=== PATIENT | female | born 1940 | race Caucasian/White ===

== ENCOUNTER → 2017-01-04 | Outpatient (CLI) | payer MEDICARE, BC ==
--- NOTE | 2017-01-04 09:33 | USB ---
Reason for exam: follow-up at short interval from prior study. History: Patient is postmenopausal. Family history of premenopausal breast cancer in daughter at age 40. Benign right US cyst aspiration of the right breast, March 15, 2008. Took hormonal contraceptives for 10 years. Took estrogen for 34 years beginning at age 36. Physical Findings: Nurse did not find any significant physical abnormalities on exam. US Breast RT Right breast ultrasound including all four quadrants, the retroareolar region and axilla demonstrates a 4 x 3 x 2mm oval, lesion at 10 o'clock versus 3 x 3 x 3mm previously, now appears cystic and benign and a 2mm lesion too small to characterize at 10 o'clock. A 6 month follow up of the mammographic finding recommended. These results were verbally communicated with the patient and result sheet given to the patient on 01/04/17. ASSESSMENT: Probably benign, BI-RAD 3 RECOMMENDATION: Follow-up diagnostic mammogram of both breasts in 6 months. JYOTHI
== END | disposition home or self-care (01) ==
LOC: RADUSWWP 08:31
PROVIDERS: ATTEND Internal Medicine
DX: R92.8 Other abnormal and inconclusive findings on diagnostic imaging of breast (principal)

== ENCOUNTER → 2017-02-12 | Outpatient (CLI) | payer MEDICARE, BC ==
[2017-02-12 11:50] LABS: Calcium 10.8 mg/dL (8.4-10.2); Potassium 3.8 mmol/L (3.5-5.1); Total Protein 7.8 g/dL (6.3-8.2)
[2017-02-12 12:18] LABS: Total Bilirubin 1.3 mg/dL (0.2-1.3)
== END ==
LOC: LABWHC1 10:50
PROVIDERS: ATTEND Internal Medicine Interventional Cardiology
DX: E78.2 Mixed hyperlipidemia (principal)
CPT/HCPCS: 36415; 80053; 80061

== ENCOUNTER → 2017-03-18 | Outpatient (CLI) | payer MEDICARE, BC ==
[2017-03-18 15:56] LABS: Anisocytosis Slight; CH 29.4; CHCM 32.5; HCT 33.7 % (34.0-46.0); HDW 3.66; Hypochromasia Slight; MCH 29.6 pg (25.0-35.0); MCHC 32.5 g/dL (31.0-37.0); Mean Platelet Volume 6.4; Poikilocytosis Slight; RDW 17.3 % (11.5-15.5); WBC 8.3 k/uL (3.8-10.6)
[2017-03-18 16:15] LABS: C Reactive Protein 9.7 mg/L (<10.0); Calcium 10.3 mg/dL (8.4-10.2); Potassium 4.6 mmol/L (3.5-5.1); Total Bilirubin 1.6 mg/dL (0.2-1.3)
[2017-03-18 16:21] LABS: Total Protein 7.9 g/dL (6.3-8.2)
[2017-03-18 18:07] LABS: Erythrocyte Sedimentation Rate 49 mm/hr (0-20)
[2017-03-18 21:48] LABS: Hemoglobin A1C 6.4 % (4.2-6.1)
== END | disposition home or self-care (01) ==
LOC: LABWHC1 14:55
PROVIDERS: ATTEND Family Medicine
DX: E11.621 Type 2 diabetes mellitus with foot ulcer (principal); M79.604 Pain in right leg; M86.68 Other chronic osteomyelitis, other site
CPT/HCPCS: 36415; 80053; 83036; 84134; 85027; 85652; 86140

== ENCOUNTER → 2017-03-26 | Outpatient (CLI) | payer MEDICARE, BC ==
[2017-03-26 11:57] LABS: Potassium 4.8 mmol/L (3.5-5.1)
== END | disposition home or self-care (01) ==
LOC: LABWHC1 11:10
PROVIDERS: ATTEND Nurse Practitioner Adult Health
DX: N18.9 Chronic kidney disease, unspecified (principal)
CPT/HCPCS: 36415; 80051; 82565; 84520

== ENCOUNTER → 2017-04-16 | Outpatient (CLI) | payer MEDICARE, BC ==
--- NOTE | 2017-04-16 15:32 | US ---
LOWER EXTREMITY VENOUS INSUFFICIENCY bilateral ingrown toe nails and wounds SIDE PERFORMED: Bilateral 1) Color flow is present and patency is documented in the following vessels. No DVT or SVT is noted . ? EIV ? Common Femoral Vein ? Deep Femoral Vein ? Femoral Vein ? Popliteal Vein ? Proximal Calf Veins ? Greater Saph Vein ? Upper Small Saph Vein 2) There is venous reflux noted at the following venous levels: none 3) Incompetent perforators are noted at these levels: none IMPRESSION: NO EVIDENCE OF VENOUS INSUFFICIENCY AT THIS TIME.
--- NOTE | 2017-04-21 10:02 | P.ARTDOP ---
Arterial Doppler LOWER EXTREMITY ARTERIAL DOPPLER: DATE OF SERVICE: 04/16/17 Reason for study: Bilateral great toe ulcers. Doppler waveforms: Multiphasic bilaterally throughout. Pulse volume recording: Normal configuration. Pressure gradients: None. Ankle-brachial indices: Cannot be occluded. Toe pressures: 118 on the right, 125 on the left Impression: Essentially normal flow patterns. Ankle pressures suggest calcific wall disease without significant effect on distal perfusion..
== END | disposition home or self-care (01) ==
LOC: RADUSWWP 13:59
PROVIDERS: ATTEND Family Medicine
DX: M79.604 Pain in right leg (principal)
CPT/HCPCS: 93923; 93970

== ENCOUNTER → 2017-06-18 | Outpatient (CLI) | payer MEDICARE, BC ==
[2017-06-18 10:54] LABS: Calcium 9.5 mg/dL (8.4-10.2); Total Bilirubin 1.4 mg/dL (0.2-1.3); Total Protein 7.7 g/dL (6.3-8.2)
[2017-06-18 16:42] LABS: Urine Creatinine 114.3 mg/dL
== END | disposition home or self-care (01) ==
LOC: LABWHC1 10:18
PROVIDERS: ATTEND Internal Medicine Endocrinology, Diabetes & Metabolism
DX: E11.65 Type 2 diabetes mellitus with hyperglycemia (principal)
CPT/HCPCS: 36415; 80053; 80061; 82043; 82570; 84443

== ENCOUNTER → 2017-07-23 | Outpatient (CLI) | payer MEDICARE, BC ==
--- NOTE | 2017-07-26 07:07 | MM ---
Reason for exam: screening (asymptomatic). Last mammogram was performed 1 year and 1 month ago. History: Patient is postmenopausal. Family history of premenopausal breast cancer in daughter at age 40. Benign right US cyst aspiration of the right breast, March 15, 2008. Took hormonal contraceptives for 10 years. Took estrogen for 34 years beginning at age 36. Physical Findings: A clinical breast exam by your physician is recommended on an annual basis and results should be correlated with mammographic findings. MG 3D Screening Mammo W/Cad Bilateral CC and MLO view(s) were taken. Prior study comparison: January 04, 2017, right breast US breast RT. June 24, 2016, right breast MG work up mamm w CAD RT. June 22, 2016, bilateral MG screening mammo w CAD. The breast tissue is heterogeneously dense. This may lower the sensitivity of mammography. Stable Benign calcifications bilateral breasts. There is no discrete abnormality. No significant changes when compared with prior studies. ASSESSMENT: Benign, BI-RAD 2 RECOMMENDATION: Routine screening mammogram of both breasts in 1 year.
== END | disposition home or self-care (01) ==
LOC: RADMAMWWP 10:06
PROVIDERS: ATTEND Internal Medicine
DX: Z12.31 Encounter for screening mammogram for malignant neoplasm of breast (principal)
CPT/HCPCS: 77063; G0202

== ENCOUNTER → 2017-09-22 | Outpatient (CLI) | payer MEDICARE, BC ==
[2017-09-22 11:52] LABS: Calcium 9.6 mg/dL (8.4-10.2); Potassium 4.2 mmol/L (3.5-5.1); Total Bilirubin 1.4 mg/dL (0.2-1.3); Total Protein 7.6 g/dL (6.3-8.2)
[2017-09-22 14:32] LABS: Urine Creatinine 87.6 mg/dL
== END ==
LOC: LABWHC1 10:35
PROVIDERS: ATTEND Internal Medicine Endocrinology, Diabetes & Metabolism
DX: E11.65 Type 2 diabetes mellitus with hyperglycemia (principal)
CPT/HCPCS: 36415; 80053; 80061; 82043; 82570; 83036

== ENCOUNTER → 2017-10-13 | Outpatient (CLI) | payer MEDICARE, BC ==
[2017-10-13 11:53] LABS: Calcium 8.7 mg/dL (8.4-10.2); Potassium 4.2 mmol/L (3.5-5.1); Total Bilirubin 1.5 mg/dL (0.2-1.3); Total Protein 6.6 g/dL (6.3-8.2)
== END | disposition home or self-care (01) ==
LOC: LABWHC1 10:31
PROVIDERS: ATTEND Internal Medicine Interventional Cardiology
DX: E78.2 Mixed hyperlipidemia (principal)
CPT/HCPCS: 36415; 80053; 80061

== ENCOUNTER → 2018-01-26 | Outpatient (CLI) | payer MEDICARE, BC ==
[2018-01-26 12:56] LABS: ALT 21 U/L (9-52); AST 19 U/L (14-36); Cholesterol 103 mg/dL (<200); Creatine Kinase 60 U/L (30-135); HDL Cholesterol 27 mg/dL (40-60); LDL Cholesterol,Calculated 47 mg/dL (0-99); Triglycerides 145 mg/dL (<150)
== END | disposition home or self-care (01) ==
LOC: LABWHC1 12:09
PROVIDERS: ATTEND Internal Medicine Interventional Cardiology
DX: E78.2 Mixed hyperlipidemia (principal)
CPT/HCPCS: 36415; 80061; 82550; 84450; 84460

== ENCOUNTER → 2018-02-23 | Outpatient (CLI) | payer MEDICARE, BC ==
[2018-02-23 14:03] LABS: Albumin 3.9 g/dL (3.5-5.0); Calcium 9.3 mg/dL (8.4-10.2); Digoxin 1.5 ng/mL; Potassium 4.5 mmol/L (3.5-5.1); Total Bilirubin 1.9 mg/dL (0.2-1.3)
== END | disposition home or self-care (01) ==
LOC: LABWHC1 13:08
PROVIDERS: ATTEND Internal Medicine Interventional Cardiology
DX: I50.9 Heart failure, unspecified (principal)
CPT/HCPCS: 36415; 80053; 80162; 83880

== ENCOUNTER → 2018-04-05 | Outpatient (CLI) | payer MEDICARE, BC ==
--- NOTE | 2018-04-05 13:00 | XR ---
EXAMINATION TYPE: XR foot complete LT DATE OF EXAM: 04/05/2018 COMPARISON: NONE HISTORY: Osteomyelitis left second digit TECHNIQUE: 3 views left foot FINDINGS: There is erosion of the middle phalanx left second digit. Findings can be compatible with o steomyelitis. Soft tissue swelling is over the site. There is hallux valgus deformity. There is narrowing of the proximal interphalangeal joint space of t he first digit. First metatarsophalangeal joint space degenerative changes present. Joint spaces otherwise visualized appear intact. Soft tissue swelling is present over the foot. Small Achilles tendon calcaneal heel spur is present. IMPRESSION: 1. Erosion of the second digit middle phalanx with some residual base remaining. Soft tissue swellin g is present. Findings are compatible with patient's reported osteomyelitis. 2. Hallux valgus deformity.
== END | disposition home or self-care (01) ==
LOC: RADXRMAIN 12:20
PROVIDERS: ATTEND Internal Medicine Infectious Disease
DX: M21.072 Valgus deformity, not elsewhere classified, left ankle (principal); M85.872 Other specified disorders of bone density and structure, left ankle and foot; M79.89 Other specified soft tissue disorders

== ENCOUNTER 2018-04-08 14:13 | Emergency (ER) | payer MEDICARE, BC ==
--- NOTE | 2018-04-08 14:47 | ED ---
General Adult HPI - General Chief complaint: Recheck/Abnormal Lab/Rx Stated complaint: sent by PCP / Transfusion Time Seen by Provider: 04/08/18 14:33 Source: patient, RN notes reviewed, old records reviewed Mode of arrival: ambulatory Limitations: no limitations - History of Present Illness Initial comments: 77-year-old female presenting from primary care's office with low hemoglobin. Patient was told by her primary care physician that she had a hemoglobin of 10.1. She had been complaining of some fatigue. She has history of mild anemia. She also has history of mechanical valve replacement and is currently on Coumadin. She has a right upper extremity PICC line is being treated for a left second toe osteomyelitis. She states these issues are chronic and unchanged. Patient's primary care physician also noted that she had some mild hypernatremia, hypokalemia, and hypocalcemia. Patient does complain of some mild fatigue, no dyspnea, no cough, no fever or chills. No abdominal pain. No nausea vomiting or diarrhea. She denies bright red rectal bleeding, she does state that she has dark stools use currently on iron supplementation. - Related Data Home Medications Medication Instructions Recorded Confirmed Atenolol [Tenormin] 50 mg PO BID 10/12/16 04/23/17 Digoxin [Lanoxin] 125 mcg PO DAILY 10/12/16 04/23/17 Insulin Aspart [NovoLOG Flexpen] 6 units SQ AC-BRKFST 10/12/16 04/23/17 Insulin Aspart [NovoLOG Flexpen] 7 units SQ AC-LUNCH 10/12/16 04/23/17 Insulin Aspart [NovoLOG Flexpen] 8 units SQ AC-SUPPER 10/12/16 04/23/17 Insulin Glargine,Hum.rec.anlog 20 unit SQ HS 10/12/16 04/23/17 [Lantus Solostar] Losartan [Cozaar] 100 mg PO DAILY 10/12/16 04/23/17 Meloxicam 15 mg PO DAILY 10/12/16 04/23/17 Warfarin [Coumadin] 3.75 mg PO DAILY 10/12/16 04/23/17 cloNIDine HCL [Catapres] 0.2 mg PO DAILY 10/12/16 04/23/17 Furosemide [Lasix] 40 mg PO BID@0900,1600 03/16/17 04/23/17 Metolazone [Zaroxolyn] 2.5 mg PO TU 03/16/17 04/23/17 Calcium Carbonate/Vitamin D3 1 each PO BID 03/18/17 04/23/17 [Calcium 600-Vit D3 800 Tab] Simvastatin [Zocor] 40 mg PO HS 03/18/17 04/23/17 Amoxicillin/Potassium Clav 1 tab PO Q12HR 03/25/17 04/23/17 [Augmentin 875-125 Tablet] Allergies Allergy/AdvReac Type Severity Reaction Status Date / Time Iodinated Contrast- Oral and Allergy Rash/Hives Verified 04/08/18 16:07 IV Dye [Iodinated Contrast Media - IV Dye] Review of Systems ROS Statement: Those systems with pertinent positive or pertinent negative responses have been documented in the HPI. ROS Other: All systems not noted in ROS Statement are negative. Past Medical History Past Medical History: Atrial Fibrillation, Heart Failure, Diabetes Mellitus, Hyperlipidemia, Hypertension, Renal Disease Additional Past Medical History / Comment(s): patient states she had rheumatic fever when she was a teenager and had her first pacemaker inserted when she was in her 30's, decrease kidney function, wounds dee dee great toes left foot History of Any Multi-Drug Resistant Organisms: None Reported Past Surgical History: Appendectomy, Cardiac Valve Replacement, Hysterectomy, Pacemaker Past Anesthesia/Blood Transfusion Reactions: No Reported Reaction Type of Cardiac Device: Permanent Pacemaker Device Placement Date:: 2012 Past Psychological History: No Psychological Hx Reported Smoking Status: Never smoker Past Alcohol Use History: None Reported Past Drug Use History: None Reported - Past Family History Brother(s) Additional Family Medical History / Comment(s): patient states brother had " heart problems" Father History Unknown: Yes Mother History Unknown: Yes General Exam Limitations: no limitations General appearance: alert, in no apparent distress Head exam: Present: atraumatic, normocephalic Eye exam: Present: normal appearance, PERRL, EOMI Neck exam: Present: normal inspection. Absent: tenderness, meningismus Respiratory exam: Present: normal lung sounds bilaterally. Absent: respiratory distress, wheezes Cardiovascular Exam: Present: regular rate, normal rhythm, systolic murmur GI/Abdominal exam: Present: soft. Absent: distended, tenderness, guarding Rectal exam: Present: normal inspection. Absent: black stool, bloody stool Extremities exam: Present: full ROM, normal capillary refill, other (Mild erythema over the second toe on the left, no induration or fluctuance). Absent : pedal edema Neurological exam: Present: alert, oriented X3, CN II-XII intact. Absent: motor sensory deficit Psychiatric exam: Present: normal affect, normal mood Skin exam: Present: warm, dry, intact. Absent: cyanosis, diaphoretic Course Vital Signs 04/08/18 14:20 Temperature 98.0 F Pulse Rate 89 Respiratory 18 Rate Blood Pressure 119/58 O2 Sat by Pulse 95 Oximetry Medical Decision Making - Medical Decision Making 77-year-old female sent in for low hemoglobin and concern for GI bleed as well as several electrolytes abnormalities. Laboratory studies are repeated, normal white blood cell count, hemoglobin is 8.4 which is stable for this patient, previous lab drawn was 7.1 this may have been lab abnormality. Sodium is normal 140, potassium normal 4.3. And calcium is normal. Hemoccult is negative. These laboratory studies were discussed with the patient 's primary care physician Dr. Garza. Patient is stable for outpatient follow- up. - Lab Data Result diagrams: 04/08/18 14:56 04/08/18 14:56 Lab Results 04/08/18 04/08/18 04/08/18 Range/Units 14:56 14:56 14:56 WBC 6.0 (3.8-10.6) k/uL RBC 3.72 L (3.80-5.40) m/uL Hgb 8.4 L (11.4-16.0) gm/dL Hct 27.7 L (34.0-46.0) % MCV 74.4 L (80.0-100.0) fL MCH 22.6 L (25.0-35.0) pg MCHC 30.3 L (31.0-37.0) g/dL RDW 22.8 H (11.5-15.5) % Plt Count 292 (150-450) k/uL Neutrophils % 78 % Lymphocytes % 11 % Monocytes % 5 % Eosinophils % 4 % Basophils % 0 % Neutrophils # 4.6 (1.3-7.7) k/uL Lymphocytes # 0.7 L (1.0-4.8) k/uL Monocytes # 0.3 (0-1.0) k/uL Eosinophils # 0.3 (0-0.7) k/uL Basophils # 0.0 (0-0.2) k/uL Hypochromasia Marked Poikilocytosis Slight Anisocytosis Moderate Microcytosis Marked PT (9.0-12.0) sec INR (<1.2) APTT (22.0-30.0) sec Sodium (137-145) mmol/L Potassium (3.5-5.1) mmol/L Chloride (98-107) mmol/L Carbon Dioxide (22-30) mmol/L Anion Gap mmol/L BUN (7-17) mg/dL Creatinine (0.52-1.04) mg/dL Est GFR (CKD-EPI)AfAm (>60 ml/min/1.73 sqM) Est GFR (CKD-EPI)NonAf (>60 ml/min/1.73 sqM) Glucose (74-99) mg/dL POC Glucose (mg/dL) (75-99) mg/dL POC Glu Psychological Anthropologist ID Plasma Lactic Acid [place] (0.7-2.0) mmol/L Calcium (8.4-10.2) mg/dL Magnesium (1.6-2.3) mg/dL Total Bilirubin (0.2-1.3) mg/dL AST (14-36) U/L ALT (9-52) U/L Alkaline Phosphatase (38-126) U/L Total Creatine Kinase 37 (30-135) U/L CK-MB (CK-2) 0.6 (0.0-2.4) ng/mL CK-MB (CK-2) Rel Index 1.6 Troponin I 0.018 (0.000-0.034) ng/mL Total Protein (6.3-8.2) g/dL Albumin (3.5-5.0) g/dL Stool Occult Blood Negative (Negative) Blood Type Blood Type Recheck Antibody Screen Spec Expiration Date 04/08/18 04/08/18 04/08/18 Range/Units 14:56 14:56 14:56 WBC (3.8-10.6) k/uL RBC (3.80-5.40) m/uL Hgb (11.4-16.0) gm/dL Hct (34.0-46.0) % MCV (80.0-100.0) fL MCH (25.0-35.0) pg MCHC (31.0-37.0) g/dL RDW (11.5-15.5) % Plt Count (150-450) k/uL Neutrophils % % Lymphocytes % % Monocytes % % Eosinophils % % Basophils % % Neutrophils # (1.3-7.7) k/uL Lymphocytes # (1.0-4.8) k/uL Monocytes # (0-1.0) k/uL Eosinophils # (0-0.7) k/uL Basophils # (0-0.2) k/uL Hypochromasia Poikilocytosis Anisocytosis Microcytosis PT 17.6 H (9.0-12.0) sec INR 1.9 H (<1.2) APTT 27.2 (22.0-30.0) sec Sodium 140 (137-145) mmol/L Potassium 4.3 (3.5-5.1) mmol/L Chloride 101 (98-107) mmol/L Carbon Dioxide 27 (22-30) mmol/L Anion Gap 12 mmol/L BUN 22 H (7-17) mg/dL Creatinine 0.92 (0.52-1.04) mg/dL Est GFR (CKD-EPI)AfAm 69 (>60 ml/min/1.73 sqM) Est GFR (CKD-EPI)NonAf 60 (>60 ml/min/1.73 sqM) Glucose 82 (74-99) mg/dL POC Glucose (mg/dL) (75-99) mg/dL POC Glu Psychological Anthropologist ID Plasma Lactic Acid [place] 0.6 L (0.7-2.0) mmol/L Calcium 8.8 (8.4-10.2) mg/dL Magnesium 2.1 (1.6-2.3) mg/dL Total Bilirubin 1.0 (0.2-1.3) mg/dL AST 26 (14-36) U/L ALT 30 (9-52) U/L Alkaline Phosphatase 100 (38-126) U/L Total Creatine Kinase (30-135) U/L CK-MB (CK-2) (0.0-2.4) ng/mL CK-MB (CK-2) Rel Index Troponin I (0.000-0.034) ng/mL Total Protein 6.9 (6.3-8.2) g/dL Albumin 3.8 (3.5-5.0) g/dL Stool Occult Blood (Negative) Blood Type Blood Type Recheck Antibody Screen Spec Expiration Date 04/08/18 04/08/18 Range/Units 14:56 15:26 WBC (3.8-10.6) k/uL RBC (3.80-5.40) m/uL Hgb (11.4-16.0) gm/dL Hct (34.0-46.0) % MCV (80.0-100.0) fL MCH (25.0-35.0) pg MCHC (31.0-37.0) g/dL RDW (11.5-15.5) % Plt Count (150-450) k/uL Neutrophils % % Lymphocytes % % Monocytes % % Eosinophils % % Basophils % % Neutrophils # (1.3-7.7) k/uL Lymphocytes # (1.0-4.8) k/uL Monocytes # (0-1.0) k/uL Eosinophils # (0-0.7) k/uL Basophils # (0-0.2) k/uL Hypochromasia Poikilocytosis Anisocytosis Microcytosis PT (9.0-12.0) sec INR (<1.2) APTT (22.0-30.0) sec Sodium (137-145) mmol/L Potassium (3.5-5.1) mmol/L Chloride (98-107) mmol/L Carbon Dioxide (22-30) mmol/L Anion Gap mmol/L BUN (7-17) mg/dL Creatinine (0.52-1.04) mg/dL Est GFR (CKD-EPI)AfAm (>60 ml/min/1.73 sqM) Est GFR (CKD-EPI)NonAf (>60 ml/min/1.73 sqM) Glucose (74-99) mg/dL POC Glucose (mg/dL) 88 (75-99) mg/dL POC Glu Psychological Anthropologist ID [place], Lindsey Plasma Lactic Acid [place] (0.7-2.0) mmol/L Calcium (8.4-10.2) mg/dL Magnesium (1.6-2.3) mg/dL Total Bilirubin (0.2-1.3) mg/dL AST (14-36) U/L ALT (9-52) U/L Alkaline Phosphatase (38-126) U/L Total Creatine Kinase (30-135) U/L CK-MB (CK-2) (0.0-2.4) ng/mL CK-MB (CK-2) Rel Index Troponin I (0.000-0.034) ng/mL Total Protein (6.3-8.2) g/dL Albumin (3.5-5.0) g/dL Stool Occult Blood (Negative) Blood Type B Negative Blood Type Recheck CABO Indicated Antibody Screen NEGATIVE Spec Expiration Date 04/11/2018 - 235 Disposition Clinical Impression: Anemia Disposition: HOME SELF-CARE Condition: Fair Instructions: Iron Rich Diet (ED), Anemia (ED) Is patient prescribed a controlled substance at d/c from ED?: No Referrals: Home Garza MD [Primary Care Provider] - 1-2 days Time of Disposition: 16:05
[2018-04-08 15:16] LABS: Anisocytosis Moderate; Basophils % (A) 0 %; Eosinophils # (A) 0.3 k/uL (0-0.7); Eosinophils % (A) 4 %; HCT 27.7 % (34.0-46.0); HGB 8.4 gm/dL (11.4-16.0); Hypochromasia Marked; Lymphocytes # (A) 0.7 k/uL (1.0-4.8); Lymphocytes % (A) 11 %; MCH 22.6 pg (25.0-35.0); MCHC 30.3 g/dL (31.0-37.0); MCV 74.4 fL (80.0-100.0); Mean Platelet Volume 6.9; Microcytosis Marked; Monocytes # (A) 0.3 k/uL (0-1.0); Monocytes % (A) 5 %; Neutrophils # (A) 4.6 k/uL (1.3-7.7); Neutrophils % (A) 78 %; Platelet Count 292 k/uL (150-450); Poikilocytosis Slight; RBC 3.72 m/uL (3.80-5.40); RDW 22.8 % (11.5-15.5)
[2018-04-08 15:28] LABS: Albumin 3.8 g/dL (3.5-5.0); Calcium 8.8 mg/dL (8.4-10.2); Magnesium 2.1 mg/dL (1.6-2.3); Potassium 4.3 mmol/L (3.5-5.1); Total Protein 6.9 g/dL (6.3-8.2)
[2018-04-08 15:29] LABS: Glucose,Whole Blood 88 mg/dL (75-99)
[2018-04-08 15:37] LABS: INR 1.9 (<1.2); Partial Thromboplastin Time 27.2 sec (22.0-30.0); Prothrombin Time 17.6 sec (9.0-12.0)
[2018-04-08 15:48] LABS: Creatine Kinase MB 0.6 ng/mL (0.0-2.4); Troponin I 0.018 ng/mL (0.000-0.034)
[2018-04-08 17:07] VITALS: BP 151/67; PULSE 82; RESP 16; TEMP 98.2
== END 2018-04-08 16:15 | disposition home or self-care (01) ==
LOC: EC 14:13
DX: D64.9 Anemia, unspecified (principal); R01.1 Cardiac murmur, unspecified; E11.69 Type 2 diabetes mellitus with other specified complication; M86.672 Other chronic osteomyelitis, left ankle and foot; I48.91 Unspecified atrial fibrillation; E78.5 Hyperlipidemia, unspecified; I11.0 Hypertensive heart disease with heart failure; I50.9 Heart failure, unspecified; N28.9 Disorder of kidney and ureter, unspecified; Z79.01 Long term (current) use of anticoagulants; Z79.1 Long term (current) use of non-steroidal anti-inflammatories (NSAID); Z79.4 Long term (current) use of insulin; Z79.899 Other long term (current) drug therapy; Z91.041 Radiographic dye allergy status; Z95.0 Presence of cardiac pacemaker; Z95.2 Presence of prosthetic heart valve; Z82.49 Family history of ischemic heart disease and other diseases of the circulatory system
CPT/HCPCS: 36415; 80053; 82272; 82550; 82553; 83605; 83735; 84484; 85025; 85610; 85730; 86850; 86900; 86901; 99284

== ENCOUNTER → 2018-04-22 | Outpatient (CLI) | payer MEDICARE, BC ==
--- NOTE | 2018-04-22 14:14 | XR ---
EXAMINATION TYPE: XR toes LT DATE OF EXAM: 04/22/2018 COMPARISON: 04/05/2018 HISTORY: Known left foot second toe infection. Follow-up exam. TECHNIQUE: 3 views of the left second digit were obtained. FINDINGS: There is a similar degree of osseous erosion of the second middle phalanx and base of the d istal phalanx in comparison to exam of 04/05/2018. No cortical bridging is seen at this time. No signi ficant progression in osseous destruction. Surrounding soft tissue swelling is noted. There is redemonstration of the hallux valgus deformity of the left first metatarsal and small vessel atherosclerosis. IMPRESSION: No radiographic progression of the known osteolysis the second digit left foot osteomyeli tis.
== END | disposition home or self-care (01) ==
LOC: RADXRMAIN 13:00
PROVIDERS: ATTEND Internal Medicine Infectious Disease
DX: M86.9 Osteomyelitis, unspecified (principal)

== ENCOUNTER 2018-04-25 17:26 | Inpatient (IN) | payer MEDICARE, BC ==
--- NOTE | 2018-04-25 18:01 | ED ---
General Adult HPI - General Chief complaint: Shortness of Breath Stated complaint: salome Time Seen by Provider: 04/25/18 17:45 Source: patient, RN notes reviewed, old records reviewed Mode of arrival: wheelchair Limitations: no limitations - History of Present Illness Initial comments: 77-year-old female presenting for evaluation of worsening dyspnea. Patient's symptoms have been progressive over the past 3-4 days. She complains of orthopnea and PND. She has been unable to rest secondary to her dyspnea. She does also report increasing bilateral lower extremity edema. She has history of mechanical valve replacement in the mid 90s. She was previously on Coumadin although she had discontinued this medication secondary to requirement for infusions through right upper extremity PICC line and treatment of osteomyelitis. Patient denies cough. She denies chest pain but does complain of some right arm pain. No nausea vomiting. She has had some belching. No abdominal pain. She is on Lasix currently taking 40 mg twice daily. She has resumed her Coumadin over the past 2-3 days. - Related Data Home Medications Medication Instructions Recorded Confirmed Atenolol [Tenormin] 50 mg PO BID 10/12/16 04/25/18 Insulin Aspart [NovoLOG Flexpen] 7 units SQ AC-BRKFST 10/12/16 04/25/18 Insulin Aspart [NovoLOG Flexpen] 8 units SQ AC-LUNCH 10/12/16 04/25/18 Insulin Aspart [NovoLOG Flexpen] 10 units SQ AC-SUPPER 10/12/16 04/25/18 Losartan [Cozaar] 100 mg PO DAILY 10/12/16 04/25/18 Meloxicam 15 mg PO DAILY 10/12/16 04/25/18 Warfarin [Coumadin] 2.5 mg PO DAILY 10/12/16 04/25/18 cloNIDine HCL [Catapres] 0.2 mg PO DAILY 10/12/16 04/25/18 Furosemide [Lasix] 40 mg PO BID 03/16/17 04/25/18 Metolazone [Zaroxolyn] 2.5 mg PO TU 03/16/17 04/25/18 Simvastatin [Zocor] 40 mg PO HS 03/18/17 04/25/18 Insulin Degludec [Tresiba 20 units SQ 04/23/18 04/25/18 Flextouch U-100] Cholecalciferol [Vitamin D3] 1,000 unit PO DAILY 04/25/18 04/25/18 Ferrous Sulfate [Feosol] 325 mg PO BID 04/25/18 04/25/18 Allergies Allergy/AdvReac Type Severity Reaction Status Date / Time Iodinated Contrast- Oral and Allergy Rash/Hives Verified 04/25/18 18:07 IV Dye [Iodinated Contrast Media - IV Dye] Review of Systems ROS Statement: Those systems with pertinent positive or pertinent negative responses have been documented in the HPI. ROS Other: All systems not noted in ROS Statement are negative. Past Medical History Past Medical History: Atrial Fibrillation, Heart Failure, Diabetes Mellitus, Hyperlipidemia, Hypertension, Renal Disease Additional Past Medical History / Comment(s): patient states she had rheumatic fever when she was a teenager and had her first pacemaker inserted when she was in her 30's, decrease kidney function, wounds dee dee great toes left foot History of Any Multi-Drug Resistant Organisms: None Reported Past Surgical History: Appendectomy, Cardiac Valve Replacement, Hysterectomy, Pacemaker Past Anesthesia/Blood Transfusion Reactions: No Reported Reaction Type of Cardiac Device: Permanent Pacemaker Device Placement Date:: 2012 Past Psychological History: No Psychological Hx Reported Smoking Status: Never smoker Past Alcohol Use History: None Reported Past Drug Use History: None Reported - Past Family History Brother(s) Additional Family Medical History / Comment(s): patient states brother had " heart problems" Father History Unknown: Yes Mother History Unknown: Yes General Exam Limitations: no limitations General appearance: alert, in no apparent distress Head exam: Present: atraumatic, normocephalic Eye exam: Present: normal appearance, PERRL, EOMI ENT exam: Present: normal exam Neck exam: Present: normal inspection. Absent: tenderness, meningismus Respiratory exam: Present: respiratory distress, rales, decreased breath sounds Cardiovascular Exam: Present: regular rate, normal rhythm, systolic murmur GI/Abdominal exam: Present: soft. Absent: distended, tenderness, guarding Extremities exam: Present: pedal edema (2+ pitting edema bilaterally) Back exam: Present: normal inspection, full ROM. Absent: tenderness Neurological exam: Present: alert, oriented X3, CN II-XII intact. Absent: motor sensory deficit Psychiatric exam: Present: normal affect, normal mood Skin exam: Present: warm, dry, intact. Absent: cyanosis, diaphoretic Course Vital Signs 04/25/18 04/25/18 04/25/18 17:40 18:00 19:16 Temperature 98.5 F 97.8 F Pulse Rate 60 65 Respiratory 18 22 18 Rate Blood Pressure 144/77 153/71 O2 Sat by Pulse 98 99 Oximetry EKG Findings - EKG Comments: EKG Findings:: EKG: Ventricular paced rhythm rate of 60 QRS duration 182, QTC 494 Medical Decision Making - Medical Decision Making 77-year-old female presenting with worsening dyspnea and lower extremity swelling. She does have history of congestive heart failure. She also was taken off of her Coumadin with history of mechanical valve. EKG is paced rhythm. Chest x-ray shows some pulmonary vascular congestion and cardiomegaly. Laboratory studies reveal white blood cell count 7.2 hemoglobin of 8.6 which is stable. INR is subtherapeutic at 1.2. Creatinine is 1.58. There is troponin elevation at 0.43 likely secondary to congestive heart failure and CK D BNP is elevated at 4520. Patient is given Lasix, she started on heparin drip. She will be admitted for symptomatically treatment and cardiology consultation. Troponins will be trended. - Lab Data Result diagrams: 04/25/18 18:14 04/25/18 18:14 Lab Results 04/25/18 04/25/18 04/25/18 Range/Units 18:14 18:14 18:14 WBC 7.2 (3.8-10.6) k/uL RBC 3.55 L (3.80-5.40) m/uL Hgb 8.6 L (11.4-16.0) gm/dL Hct 28.2 L (34.0-46.0) % MCV 79.3 L (80.0-100.0) fL MCH 24.2 L (25.0-35.0) pg MCHC 30.5 L (31.0-37.0) g/dL RDW 22.0 H (11.5-15.5) % Plt Count 237 (150-450) k/uL Neutrophils % 80 % Lymphocytes % 8 % Monocytes % 5 % Eosinophils % 5 % Basophils % 1 % Neutrophils # 5.8 (1.3-7.7) k/uL Lymphocytes # 0.5 L (1.0-4.8) k/uL Monocytes # 0.4 (0-1.0) k/uL Eosinophils # 0.4 (0-0.7) k/uL Basophils # 0.0 (0-0.2) k/uL Hypochromasia Marked Anisocytosis Moderate Microcytosis Moderate PT (9.0-12.0) sec INR (<1.2) APTT (22.0-30.0) sec Sodium (137-145) mmol/L Potassium (3.5-5.1) mmol/L Chloride (98-107) mmol/L Carbon Dioxide (22-30) mmol/L Anion Gap mmol/L BUN (7-17) mg/dL Creatinine (0.52-1.04) mg/dL Est GFR (CKD-EPI)AfAm (>60 ml/min/1.73 sqM) Est GFR (CKD-EPI)NonAf (>60 ml/min/1.73 sqM) Glucose (74-99) mg/dL Calcium (8.4-10.2) mg/dL Magnesium (1.6-2.3) mg/dL Total Bilirubin (0.2-1.3) mg/dL AST (14-36) U/L ALT (9-52) U/L Alkaline Phosphatase (38-126) U/L Total Creatine Kinase 43 (30-135) U/L CK-MB (CK-2) 1.1 (0.0-2.4) ng/mL CK-MB (CK-2) Rel Index 2.6 Troponin I 0.430 H* (0.000-0.034) ng/mL NT-Pro-B Natriuret Pep pg/mL Total Protein (6.3-8.2) g/dL Albumin (3.5-5.0) g/dL Blood Type B Negative Blood Type Recheck No Antibody Screen NEGATIVE Spec Expiration Date 04/28/2018 - 231304/25/18 04/25/18 04/25/18 Range/Units 18:14 18:14 18:14 WBC (3.8-10.6) k/uL RBC (3.80-5.40) m/uL Hgb (11.4-16.0) gm/dL Hct (34.0-46.0) % MCV (80.0-100.0) fL MCH (25.0-35.0) pg MCHC (31.0-37.0) g/dL RDW (11.5-15.5) % Plt Count (150-450) k/uL Neutrophils % % Lymphocytes % % Monocytes % % Eosinophils % % Basophils % % Neutrophils # (1.3-7.7) k/uL Lymphocytes # (1.0-4.8) k/uL Monocytes # (0-1.0) k/uL Eosinophils # (0-0.7) k/uL Basophils # (0-0.2) k/uL Hypochromasia Anisocytosis Microcytosis PT 11.7 (9.0-12.0) sec INR 1.2 H (<1.2) APTT 22.8 (22.0-30.0) sec Sodium 140 (137-145) mmol/L Potassium 4.1 (3.5-5.1) mmol/L Chloride 100 (98-107) mmol/L Carbon Dioxide 24 (22-30) mmol/L Anion Gap 16 mmol/L BUN 31 H (7-17) mg/dL Creatinine 1.58 H (0.52-1.04) mg/dL Est GFR (CKD-EPI)AfAm 36 (>60 ml/min/1.73 sqM) Est GFR (CKD-EPI)NonAf 31 (>60 ml/min/1.73 sqM) Glucose 134 H (74-99) mg/dL Calcium 8.6 (8.4-10.2) mg/dL Magnesium 2.1 (1.6-2.3) mg/dL Total Bilirubin 1.1 (0.2-1.3) mg/dL AST 29 (14-36) U/L ALT 31 (9-52) U/L Alkaline Phosphatase 92 (38-126) U/L Total Creatine Kinase (30-135) U/L CK-MB (CK-2) (0.0-2.4) ng/mL CK-MB (CK-2) Rel Index Troponin I (0.000-0.034) ng/mL NT-Pro-B Natriuret Pep 4520 pg/mL Total Protein 6.4 (6.3-8.2) g/dL Albumin 3.6 (3.5-5.0) g/dL Blood Type Blood Type Recheck Antibody Screen Spec Expiration Date Disposition Clinical Impression: Congestive heart failure Disposition: ADMITTED IP TO THIS HOSP Condition: Stable Is patient prescribed a controlled substance at d/c from ED?: No Referrals: Home Garza MD [Primary Care Provider] - 1-2 days Decision to Admit Reason: Admit from EC Decision Date: 04/25/18 Decision Time: 19:32
[2018-04-25 18:29] LABS: Anisocytosis Moderate; Basophils % (A) 1 %; Eosinophils # (A) 0.4 k/uL (0-0.7); Eosinophils % (A) 5 %; HCT 28.2 % (34.0-46.0); HGB 8.6 gm/dL (11.4-16.0); Hypochromasia Marked; Lymphocytes # (A) 0.5 k/uL (1.0-4.8); Lymphocytes % (A) 8 %; MCH 24.2 pg (25.0-35.0); MCHC 30.5 g/dL (31.0-37.0); MCV 79.3 fL (80.0-100.0); Mean Platelet Volume 6.8; Microcytosis Moderate; Monocytes # (A) 0.4 k/uL (0-1.0); Monocytes % (A) 5 %; Neutrophils # (A) 5.8 k/uL (1.3-7.7); Neutrophils % (A) 80 %; Platelet Count 237 k/uL (150-450); RBC 3.55 m/uL (3.80-5.40); WBC 7.2 k/uL (3.8-10.6)
--- NOTE | 2018-04-25 18:35 | XR ---
EXAMINATION TYPE: XR chest 2V DATE OF EXAM: 04/25/2018 COMPARISON: 10/14/2016 HISTORY: Short of breath TECHNIQUE: Frontal and lateral views of the chest are obtained. FINDINGS: Heart is enlarged. There is no heart failure. Costophrenic angles are clear. There are yasmine rnal wires. There is left axillary pacemaker with the lead tip in the right ventricle. There are ches t leads. IMPRESSION: Cardiomegaly. No heart failure. There is slight decreased pulmonary vascularity compared to old exam.
[2018-04-25 18:38] LABS: Albumin 3.6 g/dL (3.5-5.0); Calcium 8.6 mg/dL (8.4-10.2); Magnesium 2.1 mg/dL (1.6-2.3); Potassium 4.1 mmol/L (3.5-5.1); Total Bilirubin 1.1 mg/dL (0.2-1.3); Total Protein 6.4 g/dL (6.3-8.2)
[2018-04-25 18:39] LABS: INR 1.2 (<1.2); Partial Thromboplastin Time 22.8 sec (22.0-30.0); Prothrombin Time 11.7 sec (9.0-12.0)
[2018-04-25 18:59] LABS: Creatine Kinase MB 1.1 ng/mL (0.0-2.4)
[2018-04-25 19:00] LABS: Troponin I 0.43 ng/mL (0.000-0.034)
[2018-04-25] MEDS ORDERED: FUROSEMIDE 10 MG/ML 4 ML VIAL IV STA (19:14)
[2018-04-25] MEDS ORDERED: HEPARIN SODIUM,PORCINE 5,000 UNIT/ML 1 ML VIAL IV ONE (19:14)
[2018-04-25] MEDS ORDERED: HEPARIN SODIUM,PORCINE 5,000 UNIT/ML 1 ML VIAL IV PRN (19:14)
[2018-04-25] MEDS ORDERED: ASPIRIN 325 MG TAB PO STA (19:14)
[2018-04-25] MEDS ORDERED: NALOXONE 0.4 MG/ML 1 ML VIAL IV PRN (19:22)
[2018-04-25] MEDS: HEPARIN SODIUM,PORCINE/D5W PMX 25,000 UNIT in DEXTROSE/WATER 1 500ML.BAG IV SCH (19:45)
[2018-04-25 21:26] LABS: Glucose,Whole Blood 129 mg/dL (75-99)
[2018-04-25] MEDS: ATORVASTATIN 20 MG TAB PO SCH (22:19)
[2018-04-25] MEDS: FERROUS SULFATE 325 MG TAB PO SCH (22:19)
[2018-04-25] MEDS: ATENOLOL 50 MG TAB PO SCH (22:19)
[2018-04-26] MEDS: INSULIN DETEMIR 100 UNIT/ML 10 ML VIAL SQ SCH ×2 (01:14→22:38)
[2018-04-26 02:18] LABS: Creatine Kinase MB 0.9 ng/mL (0.0-2.4)
[2018-04-26 02:22] LABS: Troponin I 0.413 ng/mL (0.000-0.034)
[2018-04-26 06:48] LABS: Anisocytosis Moderate; Basophils # (A) 0.1 k/uL (0-0.2); Basophils % (A) 1 %; Eosinophils # (A) 0.3 k/uL (0-0.7); Eosinophils % (A) 4 %; HCT 27.9 % (34.0-46.0); HGB 8.4 gm/dL (11.4-16.0); Hypochromasia Marked; Lymphocytes # (A) 0.6 k/uL (1.0-4.8); Lymphocytes % (A) 9 %; MCHC 30.1 g/dL (31.0-37.0); MCV 79.7 fL (80.0-100.0); Mean Platelet Volume 7.1; Microcytosis Moderate; Monocytes # (A) 0.4 k/uL (0-1.0); Monocytes % (A) 6 %; Neutrophils # (A) 5.6 k/uL (1.3-7.7); Neutrophils % (A) 78 %; Platelet Count 243 k/uL (150-450); WBC 7.1 k/uL (3.8-10.6)
[2018-04-26 06:56] LABS: INR 1.3 (<1.2); Prothrombin Time 11.9 sec (9.0-12.0)
[2018-04-26 07:16] LABS: Albumin 3.5 g/dL (3.5-5.0); Calcium 8.6 mg/dL (8.4-10.2); Potassium 3.8 mmol/L (3.5-5.1); Total Bilirubin 1.2 mg/dL (0.2-1.3); Total Protein 6.3 g/dL (6.3-8.2)
[2018-04-26 07:25] LABS: Creatine Kinase MB 0.8 ng/mL (0.0-2.4)
[2018-04-26 07:39] LABS: Troponin I 0.329 ng/mL (0.000-0.034)
[2018-04-26] MEDS ORDERED: METOLAZONE 2.5 MG TAB PO SCH (09:00)
[2018-04-26] MEDS: FERROUS SULFATE 325 MG TAB PO SCH ×2 (09:12→21:16)
[2018-04-26] MEDS: ATENOLOL 50 MG TAB PO SCH ×2 (09:12→22:24)
[2018-04-26] MEDS: LOSARTAN 50 MG TAB PO SCH (09:12)
[2018-04-26] MEDS: MELOXICAM 7.5 MG TAB PO SCH (09:12)
[2018-04-26] MEDS: cloNIDine HCL 0.2 MG TAB PO SCH (09:12)
[2018-04-26] MEDS: FUROSEMIDE 10 MG/ML 4 ML VIAL IV SCH ×2 (09:12→21:16)
[2018-04-26] MEDS: CHOLECALCIFEROL 1,000 UNIT TAB PO SCH (09:12)
[2018-04-26] MEDS: ACETAMINOPHEN TAB 325 MG TAB PO PRN (09:13)
[2018-04-26] MEDS ORDERED: VANCOMYCIN IV PER PHARMACY 1 EACH MISC MISCELLANE ONE (10:30)
[2018-04-26] MEDS: VANCOMYCIN 1,250 MG in SODIUM CHLORIDE 0.9% 250 ML IVPB SCH (10:51)
[2018-04-26] MEDS: INSULIN ASPART 100 UNIT/ML 1 ML 10 ML VIAL SQ SCH ×2 (12:51→17:29)
[2018-04-26 14:15] LABS: Glucose,Whole Blood 143 mg/dL (75-99)
--- NOTE | 2018-04-26 15:33 | P.CRDCN ---
History of Present Illness History of present illness: Patient admitted with progressive shortness of breath, orthopnea and lower extremity edema. Known valvular heart disease. Coumadin was discontinued as an outpatient and she is subtherapeutic at this time. She was on IV antibiotics. She always runs a low hemoglobin of around 8-9 g/dL On examination was the lungs are clear she does have a JVD as well as lower extremity edema Heart sounds metallic status post mitral and aortic valve replacement Suggest IV Lasix 40 mg every 12, restart Coumadin and heparinize in the interim Please see full dictation by nurse practitioner Past Medical History Past Medical History: Atrial Fibrillation, Heart Failure, Diabetes Mellitus, Hyperlipidemia, Hypertension, Renal Disease Additional Past Medical History / Comment(s): IDDM type II, neuropathy bilateral feet, rheumatic fever as a teen-first pacemaker in her 30's, osteomylitis L foot's 2nd toe on IV vancomycin thru picc, past bilateral hallux wounds-since healed, chronic kidney disease stage IIIB, History of Any Multi-Drug Resistant Organisms: None Reported Past Surgical History: Appendectomy, Cardiac Valve Replacement, Hysterectomy, Pacemaker Additional Past Surgical History / Comment(s): Current picc line R upper arm, 1994 mitral and aortic mechanical valves placed, Pacemakers-has had 2 or 3, colonoscopy, debridements bilateral great toe diabetic ulcers, bilateral cataract removals with lens implants. Past Anesthesia/Blood Transfusion Reactions: No Reported Reaction Additional Past Anesthesia/Blood Transfusion Reaction / Comment(s): Pt has received blood in past without reaction. Type of Cardiac Device: Permanent Pacemaker Device Placement Date:: Pt cannot recall date of last pacer insertion but battery changed 2011 Smoking Status: Never smoker - Past Family History Brother(s) Additional Family Medical History / Comment(s): patient states brother had " heart problems" Father History Unknown: Yes Additional Family Medical History / Comment(s): Father committed suicide in his 50s. Mother History Unknown: Yes Family Medical History: No Reported History Additional Family Medical History / Comment(s): Mother was healthy and lived to be 92 yrs old. Medications and Allergies Home Medications Medication Instructions Recorded Confirmed Type Atenolol [Tenormin] 50 mg PO BID 10/12/16 04/25/18 History Insulin Aspart [NovoLOG Flexpen] 7 units SQ AC-BRKFST 10/12/16 04/25/18 History Insulin Aspart [NovoLOG Flexpen] 8 units SQ AC-LUNCH 10/12/16 04/25/18 History Insulin Aspart [NovoLOG Flexpen] 10 units SQ AC-SUPPER 10/12/16 04/25/18 History Losartan [Cozaar] 100 mg PO DAILY 10/12/16 04/25/18 History Meloxicam 15 mg PO DAILY 10/12/16 04/25/18 History Warfarin [Coumadin] 2.5 mg PO DAILY 10/12/16 04/25/18 History cloNIDine HCL [Catapres] 0.2 mg PO DAILY 10/12/16 04/25/18 History Furosemide [Lasix] 40 mg PO BID 03/16/17 04/25/18 History Metolazone [Zaroxolyn] 2.5 mg PO TU 03/16/17 04/25/18 History Simvastatin [Zocor] 40 mg PO HS 03/18/17 04/25/18 History Insulin Degludec [Tresiba 20 units SQ HS 04/23/18 04/25/18 History Flextouch U-100] Cholecalciferol [Vitamin D3] 1,000 unit PO DAILY 04/25/18 04/25/18 History Ferrous Sulfate [Feosol] 325 mg PO BID 04/25/18 04/25/18 History Allergies Allergy/AdvReac Type Severity Reaction Status Date / Time Iodinated Contrast- Oral and Allergy Rash/Hives Verified 04/25/18 18:07 IV Dye [Iodinated Contrast Media - IV Dye] Physical Exam Vitals: Vital Signs Temp Pulse Pulse Resp BP BP Pulse Ox 04/26/18 12:00 63 16 04/26/18 10:56 63 16 140/62 97 04/26/18 07:40 60 18 04/26/18 07:35 97.4 F L 60 18 164/71 98 04/26/18 05:48 97.0 F L 62 16 159/74 99 04/26/18 05:05 56 L 18 154/68 99 04/26/18 03:58 60 16 158/70 99 04/26/18 02:34 97.2 F L 60 16 155/67 97 04/26/18 00:00 97.2 F L 61 16 157/71 98 04/25/18 22:00 69 18 152/79 97 04/25/18 21:27 60 18 143/63 99 04/25/18 21:00 74 16 131/62 97 04/25/18 19:52 60 18 141/65 97 04/25/18 19:16 97.8 F 65 18 153/71 99 04/25/18 18:00 22 04/25/18 17:40 98.5 F 60 18 144/77 98 Intake and Output 04/26/18 04/26/18 04/26/18 06:59 14:59 22:59 Intake Total 533.683 Balance 533.683 Intake: IV 20 0.9@ 20 20 Intake, IV Titration 273.683 Amount Heparin Sodium,Porcine/ 273.683 D5w Pmx 25,000 unit In Dextrose/Water 1 500ml. bag @ 12 UNITS/KG/HR 18. 94 mls/hr IV .Q24H [facility] Rx #:[id number] Oral 240 Other: # Voids 1 Results 04/26/18 06:29 04/26/18 06:29 Cardiac Enzymes 04/25/18 04/25/18 04/26/18 Range/Units 18:14 18:14 01:06 AST 29 (14-36) U/L CK-MB (CK-2) 1.1 0.9 (0.0-2.4) ng/mL Troponin I 0.430 H* 0.413 H* (0.000-0.034) ng/mL 04/26/18 04/26/18 Range/Units 06:29 06:29 AST 24 (14-36) U/L CK-MB (CK-2) 0.8 (0.0-2.4) ng/mL Troponin I 0.329 H* (0.000-0.034) ng/mL Coagulation 04/25/18 04/26/18 04/26/18 Range/Units 18:14 01:06 06:29 PT 11.7 11.9 (9.0-12.0) sec APTT 22.8 44.0 H (22.0-30.0) sec 04/26/18 Range/Units 09:04 PT (9.0-12.0) sec APTT 32.4 H (22.0-30.0) sec CBC 04/25/18 04/26/18 Range/Units 18:14 06:29 WBC 7.2 7.1 (3.8-10.6) k/uL RBC 3.55 L 3.50 L (3.80-5.40) m/uL Hgb 8.6 L 8.4 L (11.4-16.0) gm/dL Hct 28.2 L 27.9 L (34.0-46.0) % Plt Count 237 243 (150-450) k/uL Comprehensive Metabolic Panel 04/25/18 04/26/18 Range/Units 18:14 06:29 Sodium 140 140 (137-145) mmol/L Potassium 4.1 3.8 (3.5-5.1) mmol/L Chloride 100 100 (98-107) mmol/L Carbon Dioxide 24 26 (22-30) mmol/L BUN 31 H 30 H (7-17) mg/dL Creatinine 1.58 H 1.60 H (0.52-1.04) mg/dL Glucose 134 H 93 (74-99) mg/dL Calcium 8.6 8.6 (8.4-10.2) mg/dL AST 29 24 (14-36) U/L ALT 31 29 (9-52) U/L Alkaline Phosphatase 92 87 (38-126) U/L Total Protein 6.4 6.3 (6.3-8.2) g/dL Albumin 3.6 3.5 (3.5-5.0) g/dL Current Medications Generic Name Dose Route Start Last Admin Trade Name Freq PRN Reason Stop Dose Admin Acetaminophen 650 mg 04/26/18 07:51 04/26/18 09:13 Tylenol Tab PO 650 mg Q6HR PRN Administration Fever and/ or Mild Pain Atenolol 50 mg 04/25/18 21:00 04/26/18 09:12 Tenormin PO 50 mg BID DAI Administration Atorvastatin Calcium 20 mg 04/25/18 21:00 04/25/18 22:19 Lipitor PO 20 mg HS DAI Administration Cholecalciferol 1,000 unit 04/26/18 09:00 04/26/18 09:12 Vitamin D3 PO 1,000 unit DAILY DAI Administration Clonidine 0.2 mg 04/26/18 09:00 04/26/18 09:12 Catapres PO 0.2 mg DAILY DAI Administration Ferrous Sulfate 325 mg 04/25/18 21:00 04/26/18 09:12 Feosol PO 325 mg BID DAI Administration Furosemide 40 mg 04/26/18 09:00 04/26/18 09:12 Lasix IV 40 mg Q12HR DAI Administration Heparin Sodium (Porcine) 0 unit 04/25/18 19:14 04/26/18 10:50 Heparin IV 4,000 unit PER PROTOCOL PRN Administration Low PTT Protocol Heparin Sodium/Dextrose 25,000 500 mls @ 18.94 mls/hr 04/25/18 19:15 10:12 unit/ IV Solution IV 15 units/kg/hr .Q24H DAI 23.67 mls/hr Protocol Titration 12 UNITS/KG/HR Vancomycin HCl 1,250 mg/ 250 mls @ 125 mls/hr 04/26/18 10:30 04/26/18 10:51 Sodium Chloride IVPB 125 mls/hr Q24HR DAI Administration Insulin Aspart 7 unit 04/27/18 07:30 Novolog SQ AC-BRKFST DAI Insulin Aspart 8 unit 04/26/18 12:30 04/26/18 12:51 Novolog SQ 8 unit AC-LUNCH DAI Administration Insulin Aspart 10 unit 04/26/18 17:30 Novolog SQ AC-SUPPER DAI Insulin Detemir 20 unit 04/25/18 21:00 04/26/18 01:14 Levemir SQ Not Given HS DAI Losartan Potassium 100 mg 04/26/18 09:00 04/26/18 09:12 Cozaar PO 100 mg DAILY DAI Administration Meloxicam 15 mg 04/26/18 09:00 04/26/18 09:12 Mobic PO 15 mg DAILY DAI Administration Metolazone 2.5 mg 04/26/18 09:00 04/26/18 09:13 Zaroxolyn PO 2.5 mg TU DAI Administration Naloxone HCl 0.2 mg 04/25/18 19:22 Narcan IV Q2M PRN Opioid Reversal Intake and Output 04/26/18 04/26/18 04/26/18 06:59 14:59 22:59 Intake Total 533.683 Balance 533.683 Intake: IV 20 0.9@ 20 20 Intake, IV Titration 273.683 Amount Heparin Sodium,Porcine/ 273.683 D5w Pmx 25,000 unit In Dextrose/Water 1 500ml. bag @ 12 UNITS/KG/HR 18. 94 mls/hr IV .Q24H [facility] Rx #:[id number] Oral 240 Other: # Voids 1 04/26/18 06:29 04/26/18 06:29
--- NOTE | 2018-04-26 15:36 | P.CRDCN ---
History of Present Illness Consult date: 04/26/18 Requesting physician: Nick Hutton Consult reason: congestive heart failure Chief complaint: Shortness of breath History of present illness: This is a pleasant 77-year-old female who follows regularly with Dr. Winn in the office. She has a known history of diabetes, hypertension, hyperlipidemia, prior aortic and mitral mechanical valve replacements as well as chronic atrial fibrillation. He presents to the hospital on this occasion with symptoms of progressively worsening shortness of breath. According to the patient, she states that her visiting nurse to stop taking her Coumadin. She is receiving IV antibiotics as an outpatient for an infection in his toe on her left foot. Chest x-ray performed on admission showed cardiomegaly with no evidence of congestive heart failure. EKG showed a ventricular paced rhythm with underlying atrial fibrillation. Blood pressure 140/60 with a heart rate in the 60s, she is afebrile. 97% on 2 L of oxygen. White blood cell count 7.1 , hemoglobin 8.4, platelet count 243. Pro time 11.9 with an INR of 1.3. Sodium 140, potassium 3.8, BUN 30, creatinine 1.6. BNP level 4520, troponins 0.43, 0.41, 0.32. At the time of my examination, patient is quite comfortable in bed she states however she does quite short of breath when she tries to lie flat. She's also been complaining of some symptoms of dizziness intermittently. She is currently on IV heparin drip. He is currently on IV Lasix 40 mg IV twice a day. Patient is also on atenolol 50 twice a day, Lipitor 20 mg daily, clonidine 0.2 mg daily, insulin, Zaroxolyn 2.5 mg every Wednesday. Past Medical History Past Medical History: Atrial Fibrillation, Heart Failure, Diabetes Mellitus, Hyperlipidemia, Hypertension, Renal Disease Additional Past Medical History / Comment(s): IDDM type II, neuropathy bilateral feet, rheumatic fever as a teen-first pacemaker in her 30's, osteomylitis L foot's 2nd toe on IV vancomycin thru picc, past bilateral hallux wounds-since healed, chronic kidney disease stage IIIB, History of Any Multi-Drug Resistant Organisms: None Reported Past Surgical History: Appendectomy, Cardiac Valve Replacement, Hysterectomy, Pacemaker Additional Past Surgical History / Comment(s): Current picc line R upper arm, 1994 mitral and aortic mechanical valves placed, Pacemakers-has had 2 or 3, colonoscopy, debridements bilateral great toe diabetic ulcers, bilateral cataract removals with lens implants. Past Anesthesia/Blood Transfusion Reactions: No Reported Reaction Additional Past Anesthesia/Blood Transfusion Reaction / Comment(s): Pt has received blood in past without reaction. Type of Cardiac Device: Permanent Pacemaker Device Placement Date:: Pt cannot recall date of last pacer insertion but battery changed 2011 Smoking Status: Never smoker - Past Family History Brother(s) Additional Family Medical History / Comment(s): patient states brother had " heart problems" Father History Unknown: Yes Additional Family Medical History / Comment(s): Father committed suicide in his 50s. Mother History Unknown: Yes Family Medical History: No Reported History Additional Family Medical History / Comment(s): Mother was healthy and lived to be 92 yrs old. Medications and Allergies Home Medications Medication Instructions Recorded Confirmed Type Atenolol [Tenormin] 50 mg PO BID 10/12/16 04/25/18 History Insulin Aspart [NovoLOG Flexpen] 7 units SQ AC-BRKFST 10/12/16 04/25/18 History Insulin Aspart [NovoLOG Flexpen] 8 units SQ AC-LUNCH 10/12/16 04/25/18 History Insulin Aspart [NovoLOG Flexpen] 10 units SQ AC-SUPPER 10/12/16 04/25/18 History Losartan [Cozaar] 100 mg PO DAILY 10/12/16 04/25/18 History Meloxicam 15 mg PO DAILY 10/12/16 04/25/18 History Warfarin [Coumadin] 2.5 mg PO DAILY 10/12/16 04/25/18 History cloNIDine HCL [Catapres] 0.2 mg PO DAILY 10/12/16 04/25/18 History Furosemide [Lasix] 40 mg PO BID 03/16/17 04/25/18 History Metolazone [Zaroxolyn] 2.5 mg PO TU 03/16/17 04/25/18 History Simvastatin [Zocor] 40 mg PO 03/18/17 04/25/18 History Insulin Degludec [Tresiba 20 units SQ 04/23/18 04/25/18 History Flextouch U-100] Cholecalciferol [Vitamin D3] 1,000 unit PO DAILY 04/25/18 04/25/18 History Ferrous Sulfate [Feosol] 325 mg PO BID 04/25/18 04/25/18 History Allergies Allergy/AdvReac Type Severity Reaction Status Date / Time Iodinated Contrast- Oral and Allergy Rash/Hives Verified 04/25/18 18:07 IV Dye [Iodinated Contrast Media - IV Dye] Physical Exam Vitals: Vital Signs Temp Pulse Pulse Resp BP BP Pulse Ox 04/26/18 12:00 63 16 04/26/18 10:56 63 16 140/62 97 04/26/18 07:40 60 18 04/26/18 07:35 97.4 F L 60 18 164/71 98 04/26/18 05:48 97.0 F L 62 16 159/74 99 04/26/18 05:05 56 L 18 154/68 99 04/26/18 03:58 60 16 158/70 99 04/26/18 02:34 97.2 F L 60 16 155/67 97 04/26/18 00:00 97.2 F L 61 16 157/71 98 04/25/18 22:00 69 18 152/79 97 04/25/18 21:27 60 18 143/63 99 04/25/18 21:00 74 16 131/62 97 04/25/18 19:52 60 18 141/65 97 04/25/18 19:16 97.8 F 65 18 153/71 99 04/25/18 18:00 22 04/25/18 17:40 98.5 F 60 18 144/77 98 Intake and Output 04/26/18 04/26/18 04/26/18 06:59 14:59 22:59 Intake Total 533.683 Balance 533.683 Intake: IV 20 0.9@ 20 20 Intake, IV Titration 273.683 Amount Heparin Sodium,Porcine/ 273.683 D5w Pmx 25,000 unit In Dextrose/Water 1 500ml. bag @ 12 UNITS/KG/HR 18. 94 mls/hr IV .Q24H [facility] Rx #:[id number] Oral 240 Other: # Voids 1 PHYSICAL EXAMINATION: GENERAL: HEENT: Head is atraumatic, normocephalic. Pupils equal, round. Sclera anicteric. Conjunctiva are clear. Mucous membranes of the mouth are moist. Neck is supple. There is elevated jugular venous pressure.] bruit is heard. HEART EXAMINATION: Heart S1 and S2 metallic aortic and mitral valve sounds are heard. CHEST EXAMINATION: Lungs are clear with mild diminished air entry to the bases ABDOMEN: Soft, nontender. Bowel sounds are heard. No organomegaly noted. EXTREMITIES: 2+ peripheral pulses with trace evidence of peripheral edema and no calf tenderness noted. NEUROLOGIC patient is awake, alert and oriented -3. . Results 04/26/18 06:29 04/26/18 06:29 Cardiac Enzymes 04/25/18 04/25/18 04/26/18 Range/Units 18:14 18:14 01:06 AST 29 (14-36) U/L CK-MB (CK-2) 1.1 0.9 (0.0-2.4) ng/mL Troponin I 0.430 H* 0.413 H* (0.000-0.034) ng/mL 04/26/18 04/26/18 Range/Units 06:29 06:29 AST 24 (14-36) U/L CK-MB (CK-2) 0.8 (0.0-2.4) ng/mL Troponin I 0.329 H* (0.000-0.034) ng/mL Coagulation 04/25/18 04/26/18 04/26/18 Range/Units 18:14 01:06 06:29 PT 11.7 11.9 (9.0-12.0) sec APTT 22.8 44.0 H (22.0-30.0) sec 04/26/18 Range/Units 09:04 PT (9.0-12.0) sec APTT 32.4 H (22.0-30.0) sec CBC 04/25/18 04/26/18 Range/Units 18:14 06:29 WBC 7.2 7.1 (3.8-10.6) k/uL RBC 3.55 L 3.50 L (3.80-5.40) m/uL Hgb 8.6 L 8.4 L (11.4-16.0) gm/dL Hct 28.2 L 27.9 L (34.0-46.0) % Plt Count 237 243 (150-450) k/uL Comprehensive Metabolic Panel 04/25/18 04/26/18 Range/Units 18:14 06:29 Sodium 140 140 (137-145) mmol/L Potassium 4.1 3.8 (3.5-5.1) mmol/L Chloride 100 100 (98-107) mmol/L Carbon Dioxide 24 26 (22-30) mmol/L BUN 31 H 30 H (7-17) mg/dL Creatinine 1.58 H 1.60 H (0.52-1.04) mg/dL Glucose 134 H 93 (74-99) mg/dL Calcium 8.6 8.6 (8.4-10.2) mg/dL AST 29 24 (14-36) U/L ALT 31 29 (9-52) U/L Alkaline Phosphatase 92 87 (38-126) U/L Total Protein 6.4 6.3 (6.3-8.2) g/dL Albumin 3.6 3.5 (3.5-5.0) g/dL Current Medications Generic Name Dose Route Start Last Admin Trade Name Freq PRN Reason Stop Dose Admin Acetaminophen 650 mg 04/26/18 07:51 04/26/18 09:13 Tylenol Tab PO 650 mg Q6HR PRN Administration Fever and/ or Mild Pain Atenolol 50 mg 04/25/18 21:00 04/26/18 09:12 Tenormin PO 50 mg BID DAI Administration Atorvastatin Calcium 20 mg 04/25/18 21:00 04/25/18 22:19 Lipitor PO 20 mg HS DAI Administration Cholecalciferol 1,000 unit 04/26/18 09:00 04/26/18 09:12 Vitamin D3 PO 1,000 unit DAILY DAI Administration Clonidine 0.2 mg 04/26/18 09:00 04/26/18 09:12 Catapres PO 0.2 mg DAILY DAI Administration Ferrous Sulfate 325 mg 04/25/18 21:00 04/26/18 09:12 Feosol PO 325 mg BID DAI Administration Furosemide 40 mg 04/26/18 09:00 04/26/18 09:12 Lasix IV 40 mg Q12HR DAI Administration Heparin Sodium (Porcine) 0 unit 04/25/18 19:14 04/26/18 10:50 Heparin IV 4,000 unit PER PROTOCOL PRN Administration Low PTT Protocol Heparin Sodium/Dextrose 25,000 500 mls @ 18.94 mls/hr 04/25/18 19:15 10:12 unit/ IV Solution IV 15 units/kg/hr .Q24H DAI 23.67 mls/hr Protocol Titration 12 UNITS/KG/HR Vancomycin HCl 1,250 mg/ 250 mls @ 125 mls/hr 04/26/18 10:30 04/26/18 10:51 Sodium Chloride IVPB 125 mls/hr Q24HR DAI Administration Insulin Aspart 7 unit 04/27/18 07:30 Novolog SQ AC-BRKFST DAI Insulin Aspart 8 unit 04/26/18 12:30 04/26/18 12:51 Novolog SQ 8 unit AC-LUNCH DAI Administration Insulin Aspart 10 unit 04/26/18 17:30 Novolog SQ AC-SUPPER DAI Insulin Detemir 20 unit 04/25/18 21:00 04/26/18 01:14 Levemir SQ Not Given HS DAI Losartan Potassium 100 mg 04/26/18 09:00 04/26/18 09:12 Cozaar PO 100 mg DAILY DAI Administration Meloxicam 15 mg 04/26/18 09:00 04/26/18 09:12 Mobic PO 15 mg DAILY DAI Administration Metolazone 2.5 mg 04/26/18 09:00 04/26/18 09:13 Zaroxolyn PO 2.5 mg TU DAI Administration Naloxone HCl 0.2 mg 04/25/18 19:22 Narcan IV Q2M PRN Opioid Reversal Intake and Output 04/26/18 04/26/18 04/26/18 06:59 14:59 22:59 Intake Total 533.683 Balance 533.683 Intake: IV 20 0.9@ 20 20 Intake, IV Titration 273.683 Amount Heparin Sodium,Porcine/ 273.683 D5w Pmx 25,000 unit In Dextrose/Water 1 500ml. bag @ 12 UNITS/KG/HR 18. 94 mls/hr IV .Q24H [facility] Rx #:[id number] Oral 240 Other: # Voids 1 04/26/18 06:29 04/26/18 06:29 EKG Interpretations (text) EKG shows a ventricular paced rhythm with underlying atrial fibrillation Assessment and Plan Plan: Assessment and plan #1 congestive heart failure with preserved left ventricular systolic function. #2 history of mitral and aortic mechanical valve replacement #3 hypertension #4 diabetes # 5 hyperlipidemia #6 current infection in the second toe on left foot, on IV antibiotics #7 chronic persistent atrial fibrillation #8 subtherapeutic INR Plan We will continue IV heparin, along with the Coumadin to obtain an INR in the range of 3-3.5. Continue IV Lasix, continue monitoring intake and output along with daily weights and daily lytes BUN and creatinine. We will also obtain an echocardiogram with Doppler study and review the office note. Further recommendations to follow. DNP note has been reviewed, I agree with a documented findings and plan of care. Patient was seen and examined.
[2018-04-26 16:44] LABS: Glucose,Whole Blood 118 mg/dL (75-99)
[2018-04-26] MEDS ORDERED: WARFARIN 5 MG TAB PO ONE (18:00)
--- NOTE | 2018-04-26 18:13 | HP ---
HISTORY AND PHYSICAL DATE OF ADMISSION: 04/25/2018. DATE OF SERVICE: 04/26/2018 PRESENT COMPLAINT: Short of breath. HISTORY OF PRESENTING COMPLAINT: This is a pleasant 77-year-old patient of Dr. Garza, follows with Dr. Winn. Chronic stable medical conditions include diabetes, hyperlipidemia, hypertension, chronic kidney disease. The patient has both mitral and aortic mechanical valves for which patient is on Coumadin. The patient is getting more and more short of breath a few days, noticed a significant amount of orthopnea, normally uses 2 pillows at night, now barely able to lie down, increasing lower extremity edema. Appetite is fair. No fever, chills. Found to be in congestive heart failure, started on IV Lasix. REVIEW OF SYSTEMS: CONSTITUTIONAL: Weak and tired. HEENT: None. RESPIRATORY: As above. CARDIOVASCULAR: As above. GASTROINTESTINAL: None. GENITOURINARY: None. MUSCULOSKELETAL: None. DERMATOLOGICAL: None. HEMATOLOGIC: None. LYMPHATIC: None. PSYCHIATRY: None. NEUROLOGICAL: None. PAST MEDICAL HISTORY: Atrial fibrillation, congestive heart failure, diabetes, hyperlipidemia, hypertension, chronic kidney disease, peripheral neuropathy, rheumatic fever as a teen, osteomyelitis of the left foot 2nd toe on IV vancomycin, chronic kidney disease stage 3B. PAST SURGICAL HISTORY: PICC line in the right upper arm, bilateral aortic and mitral valve replacement, bilateral cataract removal, permanent pacemaker. SOCIAL HISTORY: Lives alone, is a . Does not smoke or drink alcohol. FAMILY HISTORY: Heart disease. HOME MEDICATIONS: 1. Zocor 40 mg q.h.s. 2. Zaroxolyn 2.5 p.o. on Tuesdays. 3. Insulin degludec 20 units subcu q.h.s. 4. Catapres 0.2 mg p.o. daily. 5. Coumadin 2.5 mg p.o. daily. 6. Meloxicam 50 mg p.o. daily. 7. Cozaar 100 mg p.o. daily. 8. NovoLog FlexPen 7 units with breakfast, 10 with supper and 8 with lunch. 9. Lasix 40 mg b.i.d. 10.Iron 325 p.o. b.i.d. 11.Vitamin D3 1000 units p.o. daily. 12.Tenormin 50 mg p.o. b.i.d. ALLERGIES: IV CONTRAST DYE. EXAMINATION: VITAL SIGNS: On presentation, temperature 98.5, pulse 60, respirations 18, blood pressure 144/77, pulse ox 98% on room air. GENERAL APPEARANCE: Well built, BMI 31.8. Sitting up, tired-appearing. EYES: Pupils equal. Conjunctivae normal. HEENT: External appearance of nose and ears normal. Oral cavity normal. NECK: JVD raised. Mass not palpable. RESPIRATORY: Effort increased. LUNGS: Diminished breath sounds. Edema present. ABDOMEN: Soft, nontender. Liver and spleen not palpable. LYMPHATIC: No lymph node palpable in neck or axillae. PSYCHIATRY: Alert and oriented x3. Mood and affect normal. NEUROLOGICAL: Pupils equal. Cranial nerves grossly intact. Power and sensation grossly intact. INVESTIGATIONS: White count 7.2, hemoglobin 8.6. Potassium 4.1, BUN 31, creatinine 1.58. Troponin 0.4. ProBNP 4520. Chest x-ray shows some venous fluffiness and severe cardiomegaly. EKG shows underlying atrial flutter with a ventricular paced rhythm. ASSESSMENT: 1. Acute on chronic congestive heart failure exacerbation, currently ejection fraction not known. 2. Persistent atrial flutter with a pacemaker in place. 3. Diabetes mellitus type 2, chronically on insulin. 4. Essential hypertension. 5. Hyperlipidemia. 6. 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 7. Peripheral neuropathy from diabetes. 8. Osteomyelitis of the left foot 2nd toe on IV vancomycin. 9. Obesity; BMI 31.8. 10.Mechanical mitral and aortic valves since 1994, chronically on Coumadin. PLAN: 2D echocardiogram will be done. Patient is put on IV Lasix. IV vancomycin is to continue. Care was discussed with the patient. Both Cardiology will be consulted and so will be Dr. Johnson, who is following the patient the patient. MMODL / IJN: [id number] /
[2018-04-26 21:01] LABS: Glucose,Whole Blood 166 mg/dL (75-99)
[2018-04-26] MEDS: HEPARIN SODIUM,PORCINE/D5W PMX 25,000 UNIT in DEXTROSE/WATER 1 500ML.BAG IV SCH (21:15)
[2018-04-26] MEDS: ATORVASTATIN 20 MG TAB PO SCH (21:16)
[2018-04-26] MEDS ORDERED: MELATONIN 3 MG TABLET PO SCH (21:30)
--- NOTE | 2018-04-27 05:43 | CONS ---
CONSULTATION DATE OF SERVICE: 04/26/2018 REASON FOR CONSULTATION: Left second toe osteomyelitis and antibiotic recommendation. HISTORY OF PRESENT ILLNESS: The patient is a 77-year-old female well known to my service as the patient follows with the outpatient setting for left second toe osteomyelitis. Previously been treated with Rocephin; however, as the cultures were negative, however, the patient noted to have significant and persistent destruction of the left second toe middle phalanx; hence antibiotic has been recently switched over to vancomycin pharmacy to dose, which the patient is currently getting at the [facility]. The patient is presented to the [facility] ER last evening with chief complaints of increasing shortness of breath. Her breathing has been getting worse over the last 3 to 4 days. The patient is complaining of abdominal pain, PND and increasing swelling in the lower extremity. However, the patient denies having history of chest pain, any fever, rigors, any chills with these symptoms. The patient has been evaluated by the ER physician. On arrival to the ER, the patient did have a chest x-ray that shows cardiomegaly with no heart failure. The patient did not have any fever or elevated white count, kidney function with creatinine 1.60. Troponin slightly elevated. Patient admitted for further workup of the underlying cardiac condition. In view of her active left second toe osteomyelitis, the patient was continued on vancomycin and Infectious Disease was consulted for further recommendation regarding antibiotic therapy. REVIEW OF SYSTEMS: CONSTITUTIONAL: Positive for weakness, denies any high grade fever. EYES: No complaint. ENT: No complaint. RESPIRATORY: As per HPI. CARDIOVASCULAR: As per HPI. GENITOURINARY: No complaint. GASTROINTESTINAL: No complaint. MUSCULOSKELETAL: No complaint. INTEGUMENTARY: No complaint. PSYCHOLOGICAL: No complaint. ENDOCRINE: No complaint. NEUROLOGICAL: No complaint. PAST MEDICAL HISTORY: Atrial fibrillation, heart failure, diabetes mellitus, hyperlipidemia, hypertension, renal insufficiency, rheumatic fever. PAST SURGICAL HISTORY: Appendectomy, heart valve replacement, hysterectomy and pacemaker placement. SOCIAL HISTORY: No history of smoking, drinking, or drug use. FAMILY HISTORY: No pertinent findings were noticed. ALLERGIES: Allergies to IV CONTRAST DYE. MEDICATIONS: Medications include the patient is currently on Tylenol, Tenormin, Lipitor, vitamin D3, Catapres, iron sulfate, Lasix, heparin, NovoLog, Levemir, Cozaar, Melatonin., Mobic, Zaroxolyn, Narcan and vancomycin pharmacy to dose. PHYSICAL EXAMINATION: On examination, blood pressure is 178/70 with a pulse of 60, temperature 98.2. She is 99% on room air. General description is an elderly female up in the chair in no distress. No tachypnea or muscle of respiration use. HEENT examination shows slight pallor. No scleral icterus. Oral mucous membrane is dry. No pharyngeal erythema or thrush. NECK: Trachea central. No thyromegaly. LUNGS: Unlabored breathing with decreased breath sounds at the bases. No wheeze or crackle. HEART: S1, S2. Regular rate and rhythm. ABDOMEN: Soft. No tenderness. No guarding or rigidity. EXTREMITIES: 2+ edema of feet. Examination of her left second toe overall swelling much improved with no redness. No skin breakdown. No drainage. NEUROLOGICALLY: The patient is awake, alert, oriented x3. Mood and affect normal. LABS: Hemoglobin is 8.4, white count 7.1 with a BUN of 30, creatinine 1.60. Electrolytes have been normal. DIAGNOSTIC IMPRESSION AND PLAN: Patient with left second toe osteomyelitis in outpatient setting. Culture has been negative. However, the patient did have worsening on Rocephin; hence currently on vancomycin with followup x-rays that was done last Wednesday did show no further progression of the injury to the left second toe. PLAN: 1. Vancomycin pharmacy to dose target of 15. Watch the kidney function closely. 2. Will repeat a CBC, Sed rate. 3. We will follow up on clinical condition and further adjust medication if needed. Daughter was present at the bedside. All questions and concerns were answered. MMODL / IJN: [id number] /
[2018-04-27 06:11] LABS: Glucose,Whole Blood 113 mg/dL (75-99)
[2018-04-27] MEDS: INSULIN ASPART 100 UNIT/ML 1 ML 10 ML VIAL SQ SCH ×3 (07:32→17:25)
[2018-04-27 08:17] LABS: Anisocytosis Moderate; Basophils # (A) 0.1 k/uL (0-0.2); Basophils % (A) 1 %; Eosinophils # (A) 0.2 k/uL (0-0.7); Eosinophils % (A) 3 %; HGB 8.5 gm/dL (11.4-16.0); Hypochromasia Marked; Lymphocytes # (A) 0.9 k/uL (1.0-4.8); Lymphocytes % (A) 13 %; MCH 23.7 pg (25.0-35.0); MCHC 30.4 g/dL (31.0-37.0); Mean Platelet Volume 7.1; Microcytosis Moderate; Monocytes # (A) 0.4 k/uL (0-1.0); Monocytes % (A) 6 %; Neutrophils # (A) 4.8 k/uL (1.3-7.7); Neutrophils % (A) 74 %; Platelet Count 238 k/uL (150-450); RBC 3.59 m/uL (3.80-5.40); RDW 21.5 % (11.5-15.5); WBC 6.6 k/uL (3.8-10.6)
[2018-04-27 08:29] LABS: Calcium 8.9 mg/dL (8.4-10.2); Potassium 4.2 mmol/L (3.5-5.1)
[2018-04-27 08:30] LABS: INR 1.3 (<1.2); Prothrombin Time 12.4 sec (9.0-12.0)
[2018-04-27] MEDS: MELOXICAM 7.5 MG TAB PO SCH (09:10)
[2018-04-27 09:11] LABS: C Reactive Protein 41.3 mg/L (<10.0)
[2018-04-27] MEDS: LOSARTAN 50 MG TAB PO SCH (09:12)
[2018-04-27] MEDS: FUROSEMIDE 10 MG/ML 4 ML VIAL IV SCH ×2 (09:12→19:36)
[2018-04-27] MEDS: CHOLECALCIFEROL 1,000 UNIT TAB PO SCH (09:12)
[2018-04-27] MEDS: FERROUS SULFATE 325 MG TAB PO SCH ×2 (09:12→19:36)
[2018-04-27] MEDS: ATENOLOL 50 MG TAB PO SCH ×2 (09:12→19:36)
[2018-04-27] MEDS: cloNIDine HCL 0.2 MG TAB PO SCH (09:12)
[2018-04-27] MEDS: VANCOMYCIN 1,250 MG in SODIUM CHLORIDE 0.9% 250 ML IVPB SCH (09:13)
[2018-04-27] MEDS ORDERED: VANCOMYCIN IV PER PHARMACY 1 EACH MISC MISCELLANE PRN (10:08)
--- NOTE | 2018-04-27 11:45 | ECHOF ---
Referral Reason:chf MEASUREMENTS -------- HEIGHT: 182.9 cm WEIGHT: 78.9 kg BP: 140/62 IVSd: 1.3 cm (0.6 - 1.1) LVIDd: 4.8 cm (3.9 - 5.3) LVPWd: 1.3 cm (0.6 - 1.1) IVSs: 1.5 cm LVIDs: 4.2 cm LVPWs: 1.6 cm LAESV Index (A-L): 42.42 ml/m MV E Kendrick: 2.22 m/s MV DecT: 173 ms MV A Kendrick: 0.00 m/s MV E/A Ratio: 503.92 AV maxP.77 mmHg AV meanP.45 mmHg RAP: 5.00 mmHg RVSP: 85.11 mmHg FINDINGS -------- Paced rhythm. This was a technically adequate study. The left ventricular size is normal. There is mild concentric left ventricular hypertrophy. Overa ll left ventricular systolic function is moderately impaired with, an EF between 35 - 40 %. Inferio rlateral Hypokinesis Septal Hypokinesis The right ventricle is normal in size and function. LA is severely dilated >40 ml/m2 The right atrium is markedly enlarged. Electronic pacemaker lead seen in the right atrial cavity. Peak/mean gradient across the Aortic Valve is 48.77mmHg / 29.45mmHg. 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 Moderate mitral regurgitation is present. Normal Mechanical prosthetic valve. Difficult to estima te mitral regurgitation due to mechanical valves. Severe tricuspid regurgitation present. There is severe pulmonary hypertension. The right ventric ular systolic pressure, as measured by Doppler, is 85.11mmHg. Trace/mild (physiologic) pulmonic regurgitation. The aortic root size is normal. Normal inferior vena cava with normal inspiratory collapse consistent with estimated right atrial pre ssure of 5 mmHg. There is no pericardial effusion. CONCLUSIONS -------- 1. Paced rhythm. 2. This was a technically adequate study. 3. The left ventricular size is normal. 4. There is mild concentric left ventricular hypertrophy. 5. Inferiorlateral Hypokinesis 6. Septal Hypokinesis 7. LA is severely dilated >40 ml/m2 8. The right atrium is markedly enlarged. 9. Electronic pacemaker lead seen in the right atrial cavity. 10. Peak/mean gradient across the Aortic Valve is 48.77mmHg / 29.45mmHg. 11. 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 12. Moderate mitral regurgitation is present. 13. Normal Mechanical prosthetic valve. 14. Difficult to estimate mitral regurgitation due to mechanical valves. 15. Severe tricuspid regurgitation present. 16. There is severe pulmonary hypertension. 17. The right ventricular systolic pressure, as measured by Doppler, is 85.11mmHg. 18. Trace/mild (physiologic) pulmonic regurgitation. 19. The aortic root size is normal. 20. There is no pericardial effusion. [employer] SUPERVISOR: Sami Denis RDCS
[2018-04-27 11:56] LABS: Glucose,Whole Blood 188 mg/dL (75-99)
[2018-04-27 11:59] VITALS: BMI 30.9
[2018-04-27 13:04] LABS: Erythrocyte Sedimentation Rate 44 mm/hr (0-20)
--- NOTE | 2018-04-27 13:38 | P.PN ---
Subjective Progress Note Date: 04/27/18 Principal diagnosis: CHF This is a pleasant 77-year-old female who follows regularly with Dr. Winn in the office. She has a known history of diabetes, hypertension, hyperlipidemia, prior aortic and mitral mechanical valve replacements as well as chronic atrial fibrillation. He presents to the hospital on this occasion with symptoms of progressively worsening shortness of breath. According to the patient, she states that her visiting nurse to stop taking her Coumadin. She is receiving IV antibiotics as an outpatient for an infection in his toe on her left foot. Chest x-ray performed on admission showed cardiomegaly with no evidence of congestive heart failure. EKG showed a ventricular paced rhythm with underlying atrial fibrillation. Blood pressure 140/60 with a heart rate in the 60s, she is afebrile. 97% on 2 L of oxygen. White blood cell count 7.1 , hemoglobin 8.4, platelet count 243. Pro time 11.9 with an INR of 1.3. Sodium 140, potassium 3.8, BUN 30, creatinine 1.6. BNP level 4520, troponins 0.43, 0.41, 0.32. At the time of my examination, patient is quite comfortable in bed she states however she does quite short of breath when she tries to lie flat. She's also been complaining of some symptoms of dizziness intermittently. She is currently on IV heparin drip. He is currently on IV Lasix 40 mg IV twice a day. Patient is also on atenolol 50 twice a day, Lipitor 20 mg daily, clonidine 0.2 mg daily, insulin, Zaroxolyn 2.5 mg every Wednesday. 04/27/2018 Patient seen and examined this morning, overall she does state that her breathing is improving. Continues to be on IV Lasix. Echocardiogram with Doppler study was performed today which revealed an ejection fraction of 35-40% . Inferior lateral hypokinesia and septal hypokinesia noted. LA is severely dilated, right atrium is markedly enlarged. Peak/mean gradient across the aortic valve is 48.77 mmHg/29.5 mmHg. 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 Moderate mitral regurgitation present. Normal mechanical prosthetic valve. Severe tricuspid regurgitation and severe pulmonary hypertension. Blood pressure this morning 148/60 with a heart rate in the 60s, temperature 97.8, 93% on room air. White blood cell count 6.6, hemoglobin 8.8, platelet count 238. INR today 1.3, sodium 139, potassium 4.2, BUN 37, creatinine 1.7. We will continue the current dose of IV Lasix. Give the patient 5 mg of Coumadin today. Objective - Vital Signs Vital signs: Vital Signs Temp 97.8 F 04/27/18 08:00 Pulse 60 04/27/18 08:00 Resp 18 04/27/18 08:00 BP 148/67 04/27/18 08:00 Pulse Ox 93 L 04/27/18 08:00 Intake & Output 04/26/18 04/27/18 04/27/18 18:59 06:59 18:59 Intake Total 1013.683 306.317 360 Balance 1013.683 306.317 360 Weight 76.8 kg 76.8 kg Intake: IV 20 80 0.9@ 20 20 80 Intake, IV Titration 273.683 226.317 Amount Heparin Sodium,Porcine/ 273.683 226.317 D5w Pmx 25,000 unit In Dextrose/Water 1 500ml. bag @ 12 UNITS/KG/HR 18. 94 mls/hr IV .Q24H [facility] Rx #:[id number] Oral 720 360 Other: Voiding Method Toilet # Voids 0 2 1 # Bowel Movements 0 0 - Exam PHYSICAL EXAMINATION: GENERAL: HEENT: Head is atraumatic, normocephalic. Pupils equal, round. Sclera anicteric. Conjunctiva are clear. Mucous membranes of the mouth are moist. Neck is supple. There is mild elevated jugular venous pressure.] Carotid bruit is heard. HEART EXAMINATION: Heart S1 and S2 metallic aortic and mitral valve sounds are heard, systolic murmur heard. CHEST EXAMINATION: Lungs are clear with mild diminished air entry to the bases ABDOMEN: Soft, nontender. Bowel sounds are heard. No organomegaly noted. EXTREMITIES: 2+ peripheral pulses with trace evidence of peripheral edema and no calf tenderness noted. NEUROLOGIC patient is awake, alert and oriented -3. - Labs CBC & Chem 7: 04/27/18 07:57 04/27/18 07:57 Labs: Abnormal Lab Results - Last 24 Hours (Table) 04/26/18 04/26/18 04/26/18 Range/Units 12:29 16:42 17:04 RBC (3.80-5.40) m/uL Hgb (11.4-16.0) gm/dL Hct (34.0-46.0) % MCV (80.0-100.0) fL MCH (25.0-35.0) pg MCHC (31.0-37.0) g/dL RDW (11.5-15.5) % Lymphocytes # (1.0-4.8) k/uL PT (9.0-12.0) sec INR (<1.2) APTT 47.4 H (22.0-30.0) sec BUN (7-17) mg/dL Creatinine (0.52-1.04) mg/dL POC Glucose (mg/dL) 143 H 118 H (75-99) mg/dL C-Reactive Protein (<10.0) mg/L 04/26/18 04/27/18 04/27/18 Range/Units 20:59 06:09 07:57 RBC 3.59 L (3.80-5.40) m/uL Hgb 8.5 L (11.4-16.0) gm/dL Hct 28.0 L (34.0-46.0) % MCV 78.0 L (80.0-100.0) fL MCH 23.7 L (25.0-35.0) pg MCHC 30.4 L (31.0-37.0) g/dL RDW 21.5 H (11.5-15.5) % Lymphocytes # 0.9 L (1.0-4.8) k/uL PT (9.0-12.0) sec INR (<1.2) APTT (22.0-30.0) sec BUN (7-17) mg/dL Creatinine (0.52-1.04) mg/dL POC Glucose (mg/dL) 166 H 113 H (75-99) mg/dL C-Reactive Protein (<10.0) mg/L 04/27/18 04/27/18 04/27/18 Range/Units 07:57 07:57 07:57 RBC (3.80-5.40) m/uL Hgb (11.4-16.0) gm/dL Hct (34.0-46.0) % MCV (80.0-100.0) fL MCH (25.0-35.0) pg MCHC (31.0-37.0) g/dL RDW (11.5-15.5) % Lymphocytes # (1.0-4.8) k/uL PT 12.4 H (9.0-12.0) sec INR 1.3 H (<1.2) APTT 52.7 H (22.0-30.0) sec BUN 37 H (7-17) mg/dL Creatinine 1.71 H (0.52-1.04) mg/dL POC Glucose (mg/dL) (75-99) mg/dL C-Reactive Protein 41.3 H (<10.0) mg/L 04/27/18 Range/Units 11:54 RBC (3.80-5.40) m/uL Hgb (11.4-16.0) gm/dL Hct (34.0-46.0) % MCV (80.0-100.0) fL MCH (25.0-35.0) pg MCHC (31.0-37.0) g/dL RDW (11.5-15.5) % Lymphocytes # (1.0-4.8) k/uL PT (9.0-12.0) sec INR (<1.2) APTT (22.0-30.0) sec BUN (7-17) mg/dL Creatinine (0.52-1.04) mg/dL POC Glucose (mg/dL) 188 H (75-99) mg/dL C-Reactive Protein (<10.0) mg/L Assessment and Plan Plan: Assessment and plan #1 congestive heart failure with preserved left ventricular systolic function. #2 history of mitral and aortic mechanical valve replacement #3 hypertension #4 diabetes # 5 hyperlipidemia #6 current infection in the second toe on left foot, on IV antibiotics #7 chronic persistent atrial fibrillation #8 subtherapeutic INR Plan We will continue IV heparin, along with the Coumadin to obtain an INR in the range of 3-3.5. Coumadin 5 today. Continue IV Lasix, continue monitoring intake and output along with daily weights and daily lytes BUN and creatinine. DNP note has been reviewed, I agree with a documented findings and plan of care. Patient was seen and examined.
[2018-04-27 16:34] LABS: Glucose,Whole Blood 167 mg/dL (75-99)
--- NOTE | 2018-04-27 16:55 | PN ---
PROGRESS NOTE DATE OF SERVICE: 04/27/2018 REASON FOR FOLLOWUP: Left second toe osteomyelitis. INTERVAL HISTORY: The patient is afebrile. Her breathing has improved. Denies significant chest pain, abdominal pain or any pain to the left second toe area. PHYSICAL EXAMINATION: Blood pressure is 118/64 with a pulse of 83, temperature 97.7. She is 94% on room air. General description is an elderly female up in the chair in no distress. RESPIRATORY SYSTEM: Unlabored breathing. Clear to auscultation anteriorly. HEART: S1, S2. Regular rate and rhythm. ABDOMEN: Soft. No tenderness. LEFT SECOND TOE: Currently without significant swelling, redness or any drainage. LABS: Hemoglobin is 8.5, white count 6.6. Sedimentation rate is 44 with a CRP of 41.3. Vancomycin trough is slightly on the high side. DIAGNOSTIC IMPRESSION AND PLAN: Patient with left second toe osteomyelitis. Currently vancomycin dosing to be adjusted down by the pharmacist to keep the trough around 15, watching the kidney function very closely. Continue with supportive care. MMODL / IJN: [id number] /
[2018-04-27] MEDS ORDERED: WARFARIN 5 MG TAB PO ONE (18:00)
[2018-04-27] MEDS: HEPARIN SODIUM,PORCINE/D5W PMX 25,000 UNIT in DEXTROSE/WATER 1 500ML.BAG IV SCH (18:10)
[2018-04-27] MEDS: ATORVASTATIN 20 MG TAB PO SCH (19:36)
[2018-04-27] MEDS: MELATONIN 5 MG TABLET PO SCH ×2 (20:59→21:03)
[2018-04-27] MEDS: INSULIN DETEMIR 100 UNIT/ML 10 ML VIAL SQ SCH (20:59)
[2018-04-27 21:36] LABS: Glucose,Whole Blood 150 mg/dL (75-99)
[2018-04-28] MEDS: ACETAMINOPHEN TAB 325 MG TAB PO PRN (03:08)
[2018-04-28 06:10] LABS: Glucose,Whole Blood 96 mg/dL (75-99)
[2018-04-28] MEDS: INSULIN ASPART 100 UNIT/ML 1 ML 10 ML VIAL SQ SCH ×3 (06:13→17:19)
[2018-04-28 06:49] LABS: Anisocytosis Moderate; Basophils % (A) 1 %; Eosinophils # (A) 0.3 k/uL (0-0.7); Eosinophils % (A) 5 %; HCT 27.6 % (34.0-46.0); HGB 8.3 gm/dL (11.4-16.0); Hypochromasia Marked; Lymphocytes # (A) 0.7 k/uL (1.0-4.8); Lymphocytes % (A) 10 %; MCH 23.9 pg (25.0-35.0); MCHC 30.2 g/dL (31.0-37.0); MCV 79.3 fL (80.0-100.0); Mean Platelet Volume 6.5; Microcytosis Moderate; Monocytes # (A) 0.4 k/uL (0-1.0); Monocytes % (A) 6 %; Neutrophils % (A) 76 %; Platelet Count 264 k/uL (150-450); RBC 3.48 m/uL (3.80-5.40); RDW 21.9 % (11.5-15.5); WBC 6.6 k/uL (3.8-10.6)
[2018-04-28 06:59] LABS: INR 1.4 (<1.2); Partial Thromboplastin Time 53.2 sec (22.0-30.0); Prothrombin Time 13.3 sec (9.0-12.0)
[2018-04-28 07:02] LABS: Calcium 8.8 mg/dL (8.4-10.2); Potassium 3.7 mmol/L (3.5-5.1)
[2018-04-28] MEDS: LOSARTAN 50 MG TAB PO SCH (07:33)
[2018-04-28] MEDS: MELOXICAM 7.5 MG TAB PO SCH (07:33)
[2018-04-28] MEDS: FERROUS SULFATE 325 MG TAB PO SCH ×2 (07:33→19:36)
[2018-04-28] MEDS: CHOLECALCIFEROL 1,000 UNIT TAB PO SCH (07:34)
[2018-04-28] MEDS: cloNIDine HCL 0.2 MG TAB PO SCH (07:34)
[2018-04-28] MEDS: ATENOLOL 50 MG TAB PO SCH ×2 (07:34→19:36)
[2018-04-28] MEDS: FUROSEMIDE 10 MG/ML 4 ML VIAL IV SCH (07:34)
--- NOTE | 2018-04-28 09:33 | PN ---
PROGRESS NOTE DATE OF SERVICE: 04/27/2018. PRESENTING COMPLAINT: Short of breath. INTERVAL HISTORY: This patient was seen by me yesterday. Presented with CHF exacerbation. On IV Lasix. Patient also getting treated for osteomyelitis of the toe. The patient is still having orthopnea. Breathing is somewhat better. Tolerating a diet. REVIEW OF SYSTEMS: Done for constitutional, cardiovascular, GI, pulmonary; relevant findings as above. CURRENT MEDICATIONS: Reviewed, include IV Lasix 40 mg every 12 hours. Also on IV heparin. EXAMINATION: Temperature 97.7, pulse 83, respiratory rate 18, blood pressure 108/64, pulse ox 94% on room. GENERAL APPEARANCE: Sitting up, tired-appearing. EYES: Pupils are equal. Conjunctivae normal. HEENT: External appearance of nose and ears normal. Oral cavity normal. NECK: JVD not raised. Mass not palpable. Respiratory effort increased. Lungs decreased breath sounds. Edema present. ABDOMEN: Soft, nontender. Liver and spleen not palpable. PSYCHIATRY: Alert and oriented x3. Mood and affect normal. INVESTIGATIONS: White count 6.6, hemoglobin 8.5, INR 1.3, BUN 37, creatinine 1.71. ASSESSMENT: 1. Acute on chronic congestive heart failure exacerbation from systolic dysfunction, ejection fraction 35%. 2. Persistent atrial flutter with pacemaker in place. 3. 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 4. Severe tricuspid regurgitation, moderate mitral regurgitation, nonrheumatic. 5. Diabetes mellitus type 2, chronically on insulin. 6. Essential hypertension. 7. Hyperlipidemia. 8. Chronic kidney disease, stage IIIB, from diabetic nephropathy and possibly nephrosclerosis. 9. Peripheral neuropathy from diabetes. 10.Acute osteomyelitis of the left foot 2nd toe, on IV antibiotics. 11.Obesity; BMI 31.8. 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 13.IV heparin monitoring. PLAN: Continue medication and treatment plan. Continue on IV Lasix. Will discontinue patient's Mobic in view of the renal failure. Get a nephrology opinion. MMODL / IJN: [id number] /
--- NOTE | 2018-04-28 11:21 | CONS ---
CONSULTATION REASON FOR CONSULT: Renal failure. HISTORY OF PRESENT ILLNESS: The patient is a 77-year-old female who was admitted to the hospital with shortness of breath. She had increased lower extremity edema and is currently being diuresed for volume overload. The patient denies any chest pain. She denies any nausea, vomiting, abdominal pain or diarrhea. Serum creatinine was 1.5 on admission on 04/25. It has gone up to 1.7 on 04/28. Review of previous labs shows a serum creatinine of 0.92 on 04/12/2018. Blood pressure has not been low. Patient is maintained on Cozaar. I do see that she received the Mobic, which is now discontinued. PAST MEDICAL HISTORY: Significant for hyperlipidemia, type 2 diabetes, hypertension, chronic kidney disease stage II to III, history of A. fib, peripheral neuropathy, history of osteomyelitis on the left second toe. PAST SURGICAL HISTORY: PICC line placement right arm and aortic and mitral valve replacement, cataract surgery, pacemaker placement. SOCIAL HISTORY: Negative for smoking, drug abuse or alcohol abuse. MEDICATIONS: Medications at home included Zocor, Zaroxolyn, insulin, clonidine, Coumadin, meloxicam, Cozaar, Lasix, iron, vitamin D3, Tenormin. ALLERGIES: Allergies include IV DYE. PHYSICAL EXAMINATION: On examination, patient is currently comfortable. She is awake. She is not in any acute distress. Blood pressure is 158/70, heart rate 67 per minute. Patient is afebrile. EXAMINATION OF THE HEART: S1, S2. EXAMINATION OF THE LUNGS: Bilateral breath sounds are heard. Minimal wheeze and crackles are heard. Abdomen is soft, nontender, obese. Examination of the lower extremities shows edema 2+ bilaterally. EMERGENCY ROOM RN exam is grossly intact. LABS: Labs reveal sodium 136, potassium 3.7, chloride 96, BUN 38, serum creatinine 1.7. Vancomycin level was 28. Hemoglobin 8.3. ASSESSMENT: 1. Acute kidney injury mainly cardiorenal. Currently, patient is being diuresed. Her blood pressure is not low. She is maintained on angiotensin receptor blockers, which I will continued. The patient was on Mobic which apparently contributed to the acute kidney injury. The NSAIDs are now discontinued. I will continue the current dose of Lasix and repeat labs in a.m. A urinalysis will also be ordered. 2. Chronic kidney disease, NKF stage II to III. Serum creatinine has been as low as 0.8 mg/dL on 03/22/2018. We will check a urinalysis for any underlying proteinuria. 3. Osteomyelitis of the left second toe. Maintained on vancomycin, which the patient was receiving as outpatient. The level was not significantly elevated, was at 28 from today. 4. Hypertension, fairly stable. 5. Cardiomyopathy, ejection fraction 35% to 40%. 6. Congestive heart failure acute on top of chronic systolic. 7. History of insignificant mitral valve replacement. 8. History of atrial fibrillation, maintained on IV heparin. PLAN: May continue the Cozaar for now. Continue off of all nonsteroidal anti-inflammatory agents. Consider vancomycin toxicity if renal function does not improve and continues to worsen. So far, we do not have significantly elevated levels. Repeat labs in a.m. Check urinalysis. Thank you for this consultation. Will continue to follow the patient with you during her hospitalization. Thank you for this consultation. Continue to follow the patient with you during her hospitalization. REUBEN / HANNAH: [id number] /
[2018-04-28 11:57] LABS: Glucose,Whole Blood 130 mg/dL (75-99)
--- NOTE | 2018-04-28 12:18 | P.PN ---
Subjective Progress Note Date: 04/28/18 Principal diagnosis: CHF This is a pleasant 77-year-old female who follows regularly with Dr. Winn in the office. She has a known history of diabetes, hypertension, hyperlipidemia, prior aortic and mitral mechanical valve replacements as well as chronic atrial fibrillation. He presents to the hospital on this occasion with symptoms of progressively worsening shortness of breath. According to the patient, she states that her visiting nurse to stop taking her Coumadin. She is receiving IV antibiotics as an outpatient for an infection in his toe on her left foot. Chest x-ray performed on admission showed cardiomegaly with no evidence of congestive heart failure. EKG showed a ventricular paced rhythm with underlying atrial fibrillation. Blood pressure 140/60 with a heart rate in the 60s, she is afebrile. 97% on 2 L of oxygen. White blood cell count 7.1 , hemoglobin 8.4, platelet count 243. Pro time 11.9 with an INR of 1.3. Sodium 140, potassium 3.8, BUN 30, creatinine 1.6. BNP level 4520, troponins 0.43, 0.41, 0.32. At the time of my examination, patient is quite comfortable in bed she states however she does quite short of breath when she tries to lie flat. She's also been complaining of some symptoms of dizziness intermittently. She is currently on IV heparin drip. He is currently on IV Lasix 40 mg IV twice a day. Patient is also on atenolol 50 twice a day, Lipitor 20 mg daily, clonidine 0.2 mg daily, insulin, Zaroxolyn 2.5 mg every Wednesday. 04/27/2018 Patient seen and examined this morning, overall she does state that her breathing is improving. Continues to be on IV Lasix. Echocardiogram with Doppler study was performed today which revealed an ejection fraction of 35-40% . Inferior lateral hypokinesia and septal hypokinesia noted. LA is severely dilated, right atrium is markedly enlarged. Peak/mean gradient across the aortic valve is 48.77 mmHg/29.5 mmHg. 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 Moderate mitral regurgitation present. Normal mechanical prosthetic valve. Severe tricuspid regurgitation and severe pulmonary hypertension. Blood pressure this morning 148/60 with a heart rate in the 60s, temperature 97.8, 93% on room air. White blood cell count 6.6, hemoglobin 8.8, platelet count 238. INR today 1.3, sodium 139, potassium 4.2, BUN 37, creatinine 1.7. We will continue the current dose of IV Lasix. Give the patient 5 mg of Coumadin today. 04/28/2008. Patient seen and examined this morning, still complaining of some shortness of breath, but she does state it significantly improved from her admission here. Diuresing well on IV Lasix. Blood pressure 142/60 with a heart rate in the 70s , 95% on room air. White blood cell count 6.6, hemoglobin 8.3, platelet count 264. INR today 1.4. Sodium 136, potassium 3.7, BUN 38, creatinine 1.7. Objective - Vital Signs Vital signs: Vital Signs Temp 97.8 F 04/28/18 07:40 Pulse 77 04/28/18 07:40 Resp 16 04/28/18 07:40 BP 142/65 04/28/18 07:40 Pulse Ox 95 04/28/18 07:40 Intake & Output 04/27/18 04/28/18 04/28/18 18:59 06:59 18:59 Intake Total 1335.098 180 Balance 1335.098 180 Weight 76.8 kg 76.6 kg Intake: Intake, IV Titration 495.098 Amount Heparin Sodium,Porcine/ 495.098 D5w Pmx 25,000 unit In Dextrose/Water 1 500ml. bag @ 12 UNITS/KG/HR 18. 94 mls/hr IV .Q24H [facility] Rx #:[id number] Oral 840 180 Other: Voiding Method Toilet Toilet # Voids 2 1 # Bowel Movements 0 - Exam PHYSICAL EXAMINATION: GENERAL: HEENT: Head is atraumatic, normocephalic. Pupils equal, round. Sclera anicteric. Conjunctiva are clear. Mucous membranes of the mouth are moist. Neck is supple. There is mild elevated jugular venous pressure.] Carotid bruit is heard. HEART EXAMINATION: Heart S1 and S2 metallic aortic and mitral valve sounds are heard, systolic murmur heard. CHEST EXAMINATION: Lungs are clear with mild improvement in air entry to the bases ABDOMEN: Soft, nontender. Bowel sounds are heard. No organomegaly noted. EXTREMITIES: 2+ peripheral pulses with trace evidence of peripheral edema and no calf tenderness noted. NEUROLOGIC patient is awake, alert and oriented -3. - Labs CBC & Chem 7: 04/28/18 05:51 04/28/18 05:51 Labs: Abnormal Lab Results - Last 24 Hours (Table) 04/27/18 04/27/18 04/27/18 Range/Units 07:57 16:32 21:34 RBC (3.80-5.40) m/uL Hgb (11.4-16.0) gm/dL Hct (34.0-46.0) % MCV (80.0-100.0) fL MCH (25.0-35.0) pg MCHC (31.0-37.0) g/dL RDW (11.5-15.5) % Lymphocytes # (1.0-4.8) k/uL ESR 44 H (0-20) mm/hr PT (9.0-12.0) sec INR (<1.2) APTT (22.0-30.0) sec Sodium (137-145) mmol/L Chloride (98-107) mmol/L BUN (7-17) mg/dL Creatinine (0.52-1.04) mg/dL POC Glucose (mg/dL) 167 H 150 H (75-99) mg/dL 04/28/18 04/28/18 04/28/18 Range/Units 05:51 05:51 05:51 RBC 3.48 L (3.80-5.40) m/uL Hgb 8.3 L (11.4-16.0) gm/dL Hct 27.6 L (34.0-46.0) % MCV 79.3 L (80.0-100.0) fL MCH 23.9 L (25.0-35.0) pg MCHC 30.2 L (31.0-37.0) g/dL RDW 21.9 H (11.5-15.5) % Lymphocytes # 0.7 L (1.0-4.8) k/uL ESR (0-20) mm/hr PT 13.3 H (9.0-12.0) sec INR 1.4 H (<1.2) APTT 53.2 H (22.0-30.0) sec Sodium 136 L (137-145) mmol/L Chloride 96 L (98-107) mmol/L BUN 38 H (7-17) mg/dL Creatinine 1.70 H (0.52-1.04) mg/dL POC Glucose (mg/dL) (75-99) mg/dL 04/28/18 Range/Units 11:47 RBC (3.80-5.40) m/uL Hgb (11.4-16.0) gm/dL Hct (34.0-46.0) % MCV (80.0-100.0) fL MCH (25.0-35.0) pg MCHC (31.0-37.0) g/dL RDW (11.5-15.5) % Lymphocytes # (1.0-4.8) k/uL ESR (0-20) mm/hr PT (9.0-12.0) sec INR (<1.2) APTT (22.0-30.0) sec Sodium (137-145) mmol/L Chloride (98-107) mmol/L BUN (7-17) mg/dL Creatinine (0.52-1.04) mg/dL POC Glucose (mg/dL) 130 H (75-99) mg/dL Assessment and Plan Plan: Assessment and plan #1 congestive heart failure with preserved left ventricular systolic function. #2 history of mitral and aortic mechanical valve replacement #3 hypertension #4 diabetes # 5 hyperlipidemia #6 current infection in the second toe on left foot, on IV antibiotics #7 chronic persistent atrial fibrillation #8 subtherapeutic INR Plan We will continue IV heparin, along with the Coumadin to obtain an INR in the range of 3-3.5. Coumadin 5 today. Discontinue IV Lasix today and start the patient on Lasix 80 mg in the morning and 40 in the evening daily. Increase Zaroxolyn to twice weekly. Check lytes BUN and creatinine, PT/INR in the morning. DNP note has been reviewed, I agree with a documented findings and plan of care. Patient was seen and examined.
[2018-04-28] MEDS: FUROSEMIDE 40 MG TAB PO SCH (15:23)
[2018-04-28 17:02] LABS: Glucose,Whole Blood 226 mg/dL (75-99)
[2018-04-28 17:30] LABS: Appearance,Urine Clear (Clear); Bilirubin,Urine Negative (Negative); Blood,Urine Trace (Negative); Color,Urine Light Yellow; Glucose,Urine (UA) Negative (Negative); Hyaline Casts,Urine 1 /lpf (0-2); Ketones,Urine Negative (Negative); Leukocyte Esterase,Urine Negative (Negative); Nitrite,Urine Negative (Negative); Protein,Urine Negative (Negative); RBC,Urine 1 /hpf (0-5); Specific Gravity,Urine 1.007 (1.001-1.035); Squamous Epithelial Cell,Urine <1 /hpf (0-4); Urobilinogen,Urine <2.0 mg/dL (<2.0); WBC,Urine 2 /hpf (0-5)
[2018-04-28] MEDS ORDERED: WARFARIN 5 MG TAB PO ONE (18:00)
[2018-04-28] MEDS: HEPARIN SODIUM,PORCINE/D5W PMX 25,000 UNIT in DEXTROSE/WATER 1 500ML.BAG IV SCH (18:29)
[2018-04-28] MEDS: ATORVASTATIN 20 MG TAB PO SCH (19:36)
[2018-04-28] MEDS: MELATONIN 5 MG TABLET PO SCH (19:37)
[2018-04-28 20:47] LABS: Glucose,Whole Blood 127 mg/dL (75-99)
[2018-04-28] MEDS: INSULIN DETEMIR 100 UNIT/ML 10 ML VIAL SQ SCH (21:17)
[2018-04-28] MEDS: TEMAZEPAM 7.5 MG CAP PO SCH (23:05)
--- NOTE | 2018-04-28 23:30 | PN ---
PROGRESS NOTE DATE OF SERVICE: 04/28/2018. REASON FOR FOLLOWUP: Left second toe osteomyelitis. INTERVAL HISTORY: The patient is currently afebrile. Still complaining of shortness of breath on minimal exertion and swelling in the leg. No chest pain. No abdominal pain. No diarrhea. No pain to the left 2nd toe. EXAMINATION: Blood pressure 137/63 with a pulse of 77, temperature 98.1. She is 96% on room air. General description is an elderly female up in the chair in no distress. RESPIRATORY SYSTEM: Unlabored breathing. Clear to auscultation anteriorly. HEART: S1, S2. Regular rate and rhythm. EXTREMITIES: 2+ edema of feet. Left 2nd toe with no significant swelling or redness. LABS: BUN of 20, creatinine 1.70. Hemoglobin is 8.2, white count of 8.6. DIAGNOSTIC IMPRESSION AND PLAN: Patient with left 2nd toe osteomyelitis. The patient being admitted to the hospital with . In view of the high risk of nephrotoxicity with and elevated creatinine, will discontinue the vancomycin, switch over to daptomycin 6 mg/kg to finish the rest of antibiotic therapy. Continue supportive care. MMODL / IJN: [id number] /
--- NOTE | 2018-04-29 00:06 | PN ---
PROGRESS NOTE DATE OF SERVICE: 04/28/2018 PRESENTING COMPLAINT: Short of breath. INTERVAL HISTORY: Patient with CHF exacerbation on IV Lasix. Also getting antibiotics for osteomyelitis of the toe. Breathing is slowly improving. Has been out of bed. Did tolerate a diet. REVIEW OF SYSTEMS: Done for constitutional, cardiovascular, GI, pulmonary; relevant findings as above. CURRENT MEDICATIONS: Reviewed. The patient was on IV Lasix. PHYSICAL EXAMINATION: Temperature 97.8, pulse 68, respiratory 18, blood pressure 128/58, pulse ox 95% on room air. GENERAL APPEARANCE: Sitting up, looking better. EYES: Pupils are equal. Conjunctivae normal. HEENT: External of nose and ears normal. Oral cavity normal. NECK: JVD not raised. Mass not palpable. Respiratory effort increased. LUNGS: Decreased breath sounds. Edema still present. ABDOMEN: Soft, nontender. Liver and spleen not palpable. PSYCHIATRY: Alert and oriented x3. Mood and affect normal. INVESTIGATIONS: White count 6.6, BUN 38, creatinine 1.7. ASSESSMENT: 1. [id number] congestive heart failure exacerbation from systolic dysfunction, EF 35%. 2. Persistent atrial flutter, pacemaker in place. 3. 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 4. Severe tricuspid regurgitation, moderate mitral regurgitation, nonrheumatic. 5. Diabetes mellitus type 2, chronically on insulin. 6. Essential hypertension. 7. Hyperlipidemia. 8. Chronic kidney disease, stage IIIB, from diabetic nephropathy and possibly nephrosclerosis. 9. Peripheral neuropathy from diabetes. 10.Acute osteomyelitis of the left foot 2nd toe on IV antibiotics. 11.Obesity; BMI 31.8. 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 13.IV heparin monitoring. PLAN: Continue medication and treatment plan. The patient will be switched over to p.o. Lasix. MMODL / IJN: [id number] /
[2018-04-29 05:43] LABS: Anisocytosis Moderate; Basophils % (A) 1 %; Eosinophils # (A) 0.2 k/uL (0-0.7); Eosinophils % (A) 5 %; HCT 26.3 % (34.0-46.0); HGB 8.1 gm/dL (11.4-16.0); Hypochromasia Marked; Lymphocytes # (A) 0.6 k/uL (1.0-4.8); Lymphocytes % (A) 15 %; MCH 23.8 pg (25.0-35.0); MCHC 30.7 g/dL (31.0-37.0); MCV 77.7 fL (80.0-100.0); Mean Platelet Volume 6.8; Microcytosis Moderate; Monocytes # (A) 0.3 k/uL (0-1.0); Monocytes % (A) 8 %; Neutrophils # (A) 3.1 k/uL (1.3-7.7); Neutrophils % (A) 70 %; Platelet Count 218 k/uL (150-450); RBC 3.39 m/uL (3.80-5.40); RDW 21.8 % (11.5-15.5); WBC 4.4 k/uL (3.8-10.6)
[2018-04-29 05:47] LABS: Glucose,Whole Blood 88 mg/dL (75-99)
[2018-04-29] MEDS: INSULIN ASPART 100 UNIT/ML 1 ML 10 ML VIAL SQ SCH ×3 (05:48→17:03)
[2018-04-29 06:01] LABS: Calcium 8.5 mg/dL (8.4-10.2); Potassium 3.2 mmol/L (3.5-5.1)
[2018-04-29 06:03] LABS: INR 1.7 (<1.2); Partial Thromboplastin Time 74.3 sec (22.0-30.0); Prothrombin Time 15.9 sec (9.0-12.0)
[2018-04-29 06:24] LABS: Vancomycin,Random 21.5 ug/mL
[2018-04-29] MEDS: ATENOLOL 50 MG TAB PO SCH ×2 (08:14→21:51)
[2018-04-29] MEDS: cloNIDine HCL 0.2 MG TAB PO SCH (08:14)
[2018-04-29] MEDS: FUROSEMIDE 80 MG TAB PO SCH (08:14)
[2018-04-29] MEDS: FERROUS SULFATE 325 MG TAB PO SCH ×2 (08:14→21:51)
[2018-04-29] MEDS: LOSARTAN 50 MG TAB PO SCH (08:15)
[2018-04-29] MEDS: CHOLECALCIFEROL 1,000 UNIT TAB PO SCH (08:15)
[2018-04-29] MEDS ORDERED: POTASSIUM CHLORIDE ER 20 MEQ TAB.ER PO STA (09:20)
--- NOTE | 2018-04-29 09:36 | P.PN ---
Subjective Patient is seen in follow-up for acute kidney injury. Her baseline creatinine is near 1 and peaked at 1.7 this admission. It is down to 1.6 today. Patient presented with dyspnea and edema. She is noted to have systolic CHF with ejection fraction of 35-40%. NSAIDs are held. Vancomycin has been discontinued. Admits to good urine output. Appetite is good. Vital signs are stable. General: The patient appeared well nourished and normally developed. HEENT: Head exam is unremarkable. Neck is without jugular venous distension. LUNGS: Lungs are clear to auscultation and percussion. Breath sounds decreased. HEART: Rate and Rhythm are regular. First and second heart sounds normal. No murmurs, rubs or gallops. ABDOMEN: Abdominal exam reveals normal bowel sounds. Non-tender and non- distended. No evidence of peritonitis. EXTREMITITES: 1+ edema. Objective - Vital Signs Vital signs: Vital Signs Temp 98.1 F 04/29/18 08:00 Pulse 60 04/29/18 08:00 Resp 17 04/29/18 08:00 BP 146/66 04/29/18 08:00 Pulse Ox 97 04/29/18 08:00 Intake & Output 04/28/18 04/29/18 04/29/18 18:59 06:59 18:59 Intake Total 880 382.462 240 Output Total 350 Balance 530 382.462 240 Weight 76.7 kg Intake: IV 100 0.9@ 20 100 Intake, IV Titration 500 282.462 Amount Heparin Sodium,Porcine/ 500 282.462 D5w Pmx 25,000 unit In Dextrose/Water 1 500ml. bag @ 12 UNITS/KG/HR 18. 94 mls/hr IV .Q24H [facility] Rx #:[id number] Oral 380 240 Output: Urine 350 Other: Voiding Method Toilet Toilet Toilet # Voids 2 - Labs CBC & Chem 7: 04/29/18 05:02 04/29/18 05:02 Labs: Abnormal Lab Results - Last 24 Hours (Table) 04/28/18 04/28/18 04/28/18 Range/Units 11:47 16:45 16:49 RBC (3.80-5.40) m/uL Hgb (11.4-16.0) gm/dL Hct (34.0-46.0) % MCV (80.0-100.0) fL MCH (25.0-35.0) pg MCHC (31.0-37.0) g/dL RDW (11.5-15.5) % Lymphocytes # (1.0-4.8) k/uL PT (9.0-12.0) sec INR (<1.2) APTT (22.0-30.0) sec Sodium (137-145) mmol/L Potassium (3.5-5.1) mmol/L BUN (7-17) mg/dL Creatinine (0.52-1.04) mg/dL POC Glucose (mg/dL) 130 H 226 H (75-99) mg/dL Urine Blood Trace H (Negative) 04/28/18 04/29/18 04/29/18 Range/Units 20:42 05:02 05:02 RBC 3.39 L (3.80-5.40) m/uL Hgb 8.1 L (11.4-16.0) gm/dL Hct 26.3 L (34.0-46.0) % MCV 77.7 L (80.0-100.0) fL MCH 23.8 L (25.0-35.0) pg MCHC 30.7 L (31.0-37.0) g/dL RDW 21.8 H (11.5-15.5) % Lymphocytes # 0.6 L (1.0-4.8) k/uL PT 15.9 H (9.0-12.0) sec INR 1.7 H (<1.2) APTT 74.3 H (22.0-30.0) sec Sodium (137-145) mmol/L Potassium (3.5-5.1) mmol/L BUN (7-17) mg/dL Creatinine (0.52-1.04) mg/dL POC Glucose (mg/dL) 127 H (75-99) mg/dL Urine Blood (Negative) 04/29/18 Range/Units 05:02 RBC (3.80-5.40) m/uL Hgb (11.4-16.0) gm/dL Hct (34.0-46.0) % MCV (80.0-100.0) fL MCH (25.0-35.0) pg MCHC (31.0-37.0) g/dL RDW (11.5-15.5) % Lymphocytes # (1.0-4.8) k/uL PT (9.0-12.0) sec INR (<1.2) APTT (22.0-30.0) sec Sodium 136 L (137-145) mmol/L Potassium 3.2 L (3.5-5.1) mmol/L BUN 39 H (7-17) mg/dL Creatinine 1.60 H (0.52-1.04) mg/dL POC Glucose (mg/dL) (75-99) mg/dL Urine Blood (Negative) Assessment and Plan Plan: Assessment: 1. Nonoliguric acute kidney injury secondary to ATN secondary to cardiorenal syndrome and hemodynamic instability. Creatinine peaked at 1.7 this admission and is 1.6 today. Baseline creatinine is 1. Urinalysis is benign. 2. Systolic CHF with ejection fraction of 35-40%. 3. Left foot osteomyelitis maintained on daptomycin. Vancomycin discontinued. 4. Hypokalemia secondary to diuresis. 5. Anemia. Rule out iron deficiency. 6. Atrial fibrillation maintained on IV heparin. Plan: Replace potassium. 40 mEq stay. Check magnesium level. Maintain Lasix 80 mg in the morning and 40 mg in the afternoon. Avoid nephrotoxic agents and hypotensive episodes. Vancomycin and NSAIDs have both been discontinued. Check iron studies. Repeat electrolytes in the morning.
[2018-04-29 11:28] LABS: Glucose,Whole Blood 149 mg/dL (75-99)
[2018-04-29] MEDS: DAPTOmycin 500 MG in SODIUM CHLORIDE 0.9% 50 ML IVPB SCH (11:58)
[2018-04-29] MEDS: HEPARIN SODIUM,PORCINE/D5W PMX 25,000 UNIT in DEXTROSE/WATER 1 500ML.BAG IV SCH (11:59)
--- NOTE | 2018-04-29 12:23 | P.PN ---
Subjective Progress Note Date: 04/29/18 Principal diagnosis: CHF This is a pleasant 77-year-old female who follows regularly with Dr. Winn in the office. She has a known history of diabetes, hypertension, hyperlipidemia, prior aortic and mitral mechanical valve replacements as well as chronic atrial fibrillation. He presents to the hospital on this occasion with symptoms of progressively worsening shortness of breath. According to the patient, she states that her visiting nurse to stop taking her Coumadin. She is receiving IV antibiotics as an outpatient for an infection in his toe on her left foot. Chest x-ray performed on admission showed cardiomegaly with no evidence of congestive heart failure. EKG showed a ventricular paced rhythm with underlying atrial fibrillation. Blood pressure 140/60 with a heart rate in the 60s, she is afebrile. 97% on 2 L of oxygen. White blood cell count 7.1 , hemoglobin 8.4, platelet count 243. Pro time 11.9 with an INR of 1.3. Sodium 140, potassium 3.8, BUN 30, creatinine 1.6. BNP level 4520, troponins 0.43, 0.41, 0.32. At the time of my examination, patient is quite comfortable in bed she states however she does quite short of breath when she tries to lie flat. She's also been complaining of some symptoms of dizziness intermittently. She is currently on IV heparin drip. He is currently on IV Lasix 40 mg IV twice a day. Patient is also on atenolol 50 twice a day, Lipitor 20 mg daily, clonidine 0.2 mg daily, insulin, Zaroxolyn 2.5 mg every Wednesday. 04/27/2018 Patient seen and examined this morning, overall she does state that her breathing is improving. Continues to be on IV Lasix. Echocardiogram with Doppler study was performed today which revealed an ejection fraction of 35-40% . Inferior lateral hypokinesia and septal hypokinesia noted. LA is severely dilated, right atrium is markedly enlarged. Peak/mean gradient across the aortic valve is 48.77 mmHg/29.5 mmHg. 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 Moderate mitral regurgitation present. Normal mechanical prosthetic valve. Severe tricuspid regurgitation and severe pulmonary hypertension. Blood pressure this morning 148/60 with a heart rate in the 60s, temperature 97.8, 93% on room air. White blood cell count 6.6, hemoglobin 8.8, platelet count 238. INR today 1.3, sodium 139, potassium 4.2, BUN 37, creatinine 1.7. We will continue the current dose of IV Lasix. Give the patient 5 mg of Coumadin today. 04/28/2008. Patient seen and examined this morning, still complaining of some shortness of breath, but she does state it significantly improved from her admission here. Diuresing well on IV Lasix. Blood pressure 142/60 with a heart rate in the 70s , 95% on room air. White blood cell count 6.6, hemoglobin 8.3, platelet count 264. INR today 1.4. Sodium 136, potassium 3.7, BUN 38, creatinine 1.7. 04/29/2018 Patient was seen and examined this morning, overall she is feeling significantly better. We switched her over to oral diuretics yesterday. Her INR today is 1.7. Blood pressure 140/60 with a heart rate in the 60s, 98% on room air. White blood cell count 4.4, hemoglobin 8.1, platelet count 218. Sodium 136, potassium 3.2, BUN 39, creatinine 1.6. Objective - Vital Signs Vital signs: Vital Signs Temp 98.1 F 04/29/18 08:00 Pulse 60 04/29/18 12:00 Resp 17 04/29/18 12:00 BP 140/65 04/29/18 12:00 Pulse Ox 98 04/29/18 12:00 Intake & Output 04/28/18 04/29/18 04/29/18 18:59 06:59 18:59 Intake Total 880 382.462 391.763 Output Total 350 Balance 530 382.462 391.763 Weight 76.7 kg Intake: IV 100 20 0.9@ 20 100 20 Intake, IV Titration 500 282.462 131.763 Amount Heparin Sodium,Porcine/ 500 282.462 131.763 D5w Pmx 25,000 unit In Dextrose/Water 1 500ml. bag @ 12 UNITS/KG/HR 18. 94 mls/hr IV .Q24H [facility] [place] Rx #:[id number] Oral 380 240 Output: Urine 350 Other: Voiding Method Toilet Toilet Toilet # Voids 2 - Exam PHYSICAL EXAMINATION: GENERAL: HEENT: Head is atraumatic, normocephalic. Pupils equal, round. Sclera anicteric. Conjunctiva are clear. Mucous membranes of the mouth are moist. Neck is supple. There is mild elevated jugular venous pressure.] Carotid bruit is heard. HEART EXAMINATION: Heart S1 and S2 metallic aortic and mitral valve sounds are heard, systolic murmur heard. CHEST EXAMINATION: Lungs are clear with mild improvement in air entry to the bases ABDOMEN: Soft, nontender. Bowel sounds are heard. No organomegaly noted. EXTREMITIES: 2+ peripheral pulses with trace evidence of peripheral edema and no calf tenderness noted. NEUROLOGIC patient is awake, alert and oriented -3. - Labs CBC & Chem 7: 04/29/18 05:02 04/29/18 05:02 Labs: Abnormal Lab Results - Last 24 Hours (Table) 04/28/18 04/28/18 04/28/18 Range/Units 16:45 16:49 20:42 RBC (3.80-5.40) m/uL Hgb (11.4-16.0) gm/dL Hct (34.0-46.0) % MCV (80.0-100.0) fL MCH (25.0-35.0) pg MCHC (31.0-37.0) g/dL RDW (11.5-15.5) % Lymphocytes # (1.0-4.8) k/uL PT (9.0-12.0) sec INR (<1.2) APTT (22.0-30.0) sec Sodium (137-145) mmol/L Potassium (3.5-5.1) mmol/L BUN (7-17) mg/dL Creatinine (0.52-1.04) mg/dL POC Glucose (mg/dL) 226 H 127 H (75-99) mg/dL Urine Blood Trace H (Negative) 04/29/18 04/29/18 04/29/18 Range/Units 05:02 05:02 05:02 RBC 3.39 L (3.80-5.40) m/uL Hgb 8.1 L (11.4-16.0) gm/dL Hct 26.3 L (34.0-46.0) % MCV 77.7 L (80.0-100.0) fL MCH 23.8 L (25.0-35.0) pg MCHC 30.7 L (31.0-37.0) g/dL RDW 21.8 H (11.5-15.5) % Lymphocytes # 0.6 L (1.0-4.8) k/uL PT 15.9 H (9.0-12.0) sec INR 1.7 H (<1.2) APTT 74.3 H (22.0-30.0) sec Sodium 136 L (137-145) mmol/L Potassium 3.2 L (3.5-5.1) mmol/L BUN 39 H (7-17) mg/dL Creatinine 1.60 H (0.52-1.04) mg/dL POC Glucose (mg/dL) (75-99) mg/dL Urine Blood (Negative) 04/29/18 Range/Units 11:26 RBC (3.80-5.40) m/uL Hgb (11.4-16.0) gm/dL Hct (34.0-46.0) % MCV (80.0-100.0) fL MCH (25.0-35.0) pg MCHC (31.0-37.0) g/dL RDW (11.5-15.5) % Lymphocytes # (1.0-4.8) k/uL PT (9.0-12.0) sec INR (<1.2) APTT (22.0-30.0) sec Sodium (137-145) mmol/L Potassium (3.5-5.1) mmol/L BUN (7-17) mg/dL Creatinine (0.52-1.04) mg/dL POC Glucose (mg/dL) 149 H (75-99) mg/dL Urine Blood (Negative) Assessment and Plan Plan: Assessment and plan #1 congestive heart failure with preserved left ventricular systolic function. #2 history of mitral and aortic mechanical valve replacement #3 hypertension #4 diabetes # 5 hyperlipidemia #6 current infection in the second toe on left foot, on IV antibiotics #7 chronic persistent atrial fibrillation #8 subtherapeutic INR Plan We will continue IV heparin, along with the Coumadin to obtain an INR in the range of 3-3.5. Coumadin 5 today. Continue the rest of the patient's medication she is currently on. DNP note has been reviewed, I agree with a documented findings and plan of care. Patient was seen and examined.
[2018-04-29] MEDS: FUROSEMIDE 40 MG TAB PO SCH (15:34)
[2018-04-29 16:36] LABS: Glucose,Whole Blood 141 mg/dL (75-99)
[2018-04-29] MEDS: WARFARIN 5 MG TAB PO SCH (17:03)
[2018-04-29 17:04] LABS: Iron Saturation 6.86 (12.00-45.00)
--- NOTE | 2018-04-29 20:43 | PN ---
PROGRESS NOTE DATE OF SERVICE: 04/29/18. PRESENTING COMPLAINT: Short of breath. INTERVAL HISTORY: Patient admitted with CHF exacerbation, was treated with IV Lasix. Now on oral Lasix. The patient also on antibiotics for osteomyelitis of the toe. On running IV heparin until Coumadin becomes therapeutic. REVIEW OF SYSTEMS: Done for constitutional, cardiovascular, GI, pulmonary; relevant findings as above. CURRENT MEDICATIONS: Reviewed that include p.o. Lasix, IV heparin. PHYSICAL EXAMINATION: Temperature 98.1, pulse 50, respiration 17, blood pressure 146/64, pulse ox 97% on room air. GENERAL APPEARANCE: Sitting up, comfortable. EYES: Pupils equal. Conjunctivae normal. NECK: JVD unable to assess. Mass not palpable. RESPIRATORY: Effort normal, lungs decreased breath sounds. Edema present. ABDOMEN: Soft, nontender. Liver and spleen not palpable. PSYCHIATRY: Alert and oriented x3. Mood and affect normal. INVESTIGATIONS: White count 4.4, hemoglobin 8.1, INR 1.7, BUN 39, creatinine 1.60. ASSESSMENT: 1. Acute on chronic congestive heart failure exacerbation from systolic dysfunction, ejection fraction 35%, on p.o. Lasix now. 2. Persistent atrial flutter, pacemaker in place. 3. 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 4. Severe tricuspid regurgitation, moderate mitral regurgitation, nonrheumatic. 5. Diabetes mellitus type 2, chronically on insulin. 6. Essential hypertension. 7. Hyperlipidemia. 8. Chronic kidney stage IIIB, from diabetic nephropathy and possibly nephrosclerosis. 9. Peripheral neuropathy from diabetes. 10.Acute osteomyelitis of the left 2nd foot toe on IV antibiotics. 11.Obesity; BMI 31.8. 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 13.IV heparin monitoring. PLAN: Continue current medication and treatment plan. We will continue with IV heparin till INR is therapeutic. The patient was also switched over to daptomycin because of renal failure. MMODL / IJN: [id number] /
[2018-04-29 20:44] LABS: Glucose,Whole Blood 134 mg/dL (75-99)
[2018-04-29] MEDS: ATORVASTATIN 20 MG TAB PO SCH (21:51)
[2018-04-29] MEDS: MELATONIN 5 MG TABLET PO SCH (22:00)
[2018-04-29] MEDS: TEMAZEPAM 7.5 MG CAP PO SCH (22:00)
[2018-04-29] MEDS: INSULIN DETEMIR 100 UNIT/ML 10 ML VIAL SQ SCH (22:00)
--- NOTE | 2018-04-30 04:01 | PN ---
PROGRESS NOTE DATE OF SERVICE: 04/29/2018. REASON FOR FOLLOWUP: Left second toe osteomyelitis. INTERVAL HISTORY: The patient is currently afebrile. She is breathing comfortably. Denies significant chest pain. Occasional cough. No abdominal pain. Still has significant swelling in the leg, but no pain in the left second toe. EXAMINATION: Blood pressure 132/65, pulse of 62, temperature 96.8. She is 98% on room air. General description is an elderly female lying in bed in no distress. Respiratory system: Unlabored breathing, clear to auscultation anteriorly. Heart S1, S2. Regular rate and rhythm. Abdomen soft, no tenderness. LABS: Hemoglobin 8.1, white count 4.4 with a BUN of 39, creatinine 1.70. DIAGNOSTIC IMPRESSION AND PLAN: Patient with left second toe osteomyelitis failing outpatient currently, was on vancomycin that has been switched to daptomycin because of her jump in creatinine, risk of nephrotoxicity that will be continued for another 3-4 weeks to finish a course of therapy. Continue supportive care. MMODL / IJN: [id number] /
[2018-04-30 04:33] LABS: Anisocytosis Moderate; Basophils % (A) 1 %; Eosinophils # (A) 0.2 k/uL (0-0.7); Eosinophils % (A) 5 %; HCT 26.1 % (34.0-46.0); HGB 8.1 gm/dL (11.4-16.0); Hypochromasia Moderate; Lymphocytes # (A) 0.8 k/uL (1.0-4.8); Lymphocytes % (A) 18 %; MCV 77.2 fL (80.0-100.0); Mean Platelet Volume 6.8; Microcytosis Moderate; Monocytes # (A) 0.3 k/uL (0-1.0); Monocytes % (A) 7 %; Neutrophils # (A) 2.8 k/uL (1.3-7.7); Neutrophils % (A) 66 %; Platelet Count 222 k/uL (150-450); RBC 3.38 m/uL (3.80-5.40); RDW 21.7 % (11.5-15.5); WBC 4.3 k/uL (3.8-10.6)
[2018-04-30] MEDS: ACETAMINOPHEN TAB 325 MG TAB PO PRN ×2 (04:38→22:30)
[2018-04-30 04:40] LABS: INR 2.1 (<1.2); Partial Thromboplastin Time 76.6 sec (22.0-30.0); Prothrombin Time 18.7 sec (9.0-12.0)
[2018-04-30 04:58] LABS: Calcium 8.5 mg/dL (8.4-10.2); Potassium 3.8 mmol/L (3.5-5.1)
[2018-04-30 05:36] LABS: Glucose,Whole Blood 111 mg/dL (75-99)
[2018-04-30] MEDS: INSULIN ASPART 100 UNIT/ML 1 ML 10 ML VIAL SQ SCH ×3 (06:55→16:54)
[2018-04-30] MEDS ORDERED: METOLAZONE 2.5 MG TAB PO SCH (09:00)
--- NOTE | 2018-04-30 09:15 | P.PN ---
Subjective Patient is seen in follow-up for acute kidney injury. Her baseline creatinine is near 1 and peaked at 1.7 this admission. It is stable at 1.64 today. Patient presented with dyspnea and edema. She is noted to have systolic CHF with ejection fraction of 35-40%. NSAIDs are held. Vancomycin has been discontinued. Admits to good urine output. Appetite is good. Vital signs are stable. General: The patient appeared well nourished and normally developed. HEENT: Head exam is unremarkable. Neck is without jugular venous distension. LUNGS: Lungs are clear to auscultation and percussion. Breath sounds decreased. HEART: Rate and Rhythm are regular. First and second heart sounds normal. No murmurs, rubs or gallops. ABDOMEN: Abdominal exam reveals normal bowel sounds. Non-tender and non- distended. No evidence of peritonitis. EXTREMITITES: 1+ edema. Objective - Vital Signs Vital signs: Vital Signs Temp 97.5 F L 04/30/18 04:00 Pulse 54 L 04/30/18 04:00 Resp 18 04/30/18 04:00 BP 142/62 04/30/18 04:00 Pulse Ox 97 04/30/18 04:00 Intake & Output 04/29/18 04/30/18 04/30/18 18:59 06:59 18:59 Intake Total 1231.763 240 Balance 1231.763 240 Weight 75.6 kg Intake: IV 140 0.9@ 20 140 Intake, IV Titration 131.763 Amount Heparin Sodium,Porcine/ 131.763 D5w Pmx 25,000 unit In Dextrose/Water 1 500ml. bag @ 12 UNITS/KG/HR 18. 94 mls/hr IV .Q24H [facility] Rx #:[id number] Oral 960 240 Other: Voiding Method Toilet Toilet # Voids 2 - Labs CBC & Chem 7: 04/30/18 04:18 04/30/18 04:18 Labs: Abnormal Lab Results - Last 24 Hours (Table) 04/29/18 04/29/18 04/29/18 Range/Units 05:02 11:26 16:28 RBC (3.80-5.40) m/uL Hgb (11.4-16.0) gm/dL Hct (34.0-46.0) % MCV (80.0-100.0) fL MCH (25.0-35.0) pg RDW (11.5-15.5) % Lymphocytes # (1.0-4.8) k/uL PT (9.0-12.0) sec INR (<1.2) APTT (22.0-30.0) sec BUN (7-17) mg/dL Creatinine (0.52-1.04) mg/dL Glucose (74-99) mg/dL POC Glucose (mg/dL) 149 H 141 H (75-99) mg/dL Iron 24 L (50-170) ug/dL Iron Saturation 6.86 L (12.00-45.00) 04/29/18 04/30/18 04/30/18 Range/Units 20:42 04:18 04:18 RBC 3.38 L (3.80-5.40) m/uL Hgb 8.1 L (11.4-16.0) gm/dL Hct 26.1 L (34.0-46.0) % MCV 77.2 L (80.0-100.0) fL MCH 24.0 L (25.0-35.0) pg RDW 21.7 H (11.5-15.5) % Lymphocytes # 0.8 L (1.0-4.8) k/uL PT 18.7 H (9.0-12.0) sec INR 2.1 H (<1.2) APTT 76.6 H (22.0-30.0) sec BUN (7-17) mg/dL Creatinine (0.52-1.04) mg/dL Glucose (74-99) mg/dL POC Glucose (mg/dL) 134 H (75-99) mg/dL Iron (50-170) ug/dL Iron Saturation (12.00-45.00) 04/30/18 04/30/18 Range/Units 04:18 05:34 RBC (3.80-5.40) m/uL Hgb (11.4-16.0) gm/dL Hct (34.0-46.0) % MCV (80.0-100.0) fL MCH (25.0-35.0) pg RDW (11.5-15.5) % Lymphocytes # (1.0-4.8) k/uL PT (9.0-12.0) sec INR (<1.2) APTT (22.0-30.0) sec BUN 42 H (7-17) mg/dL Creatinine 1.64 H (0.52-1.04) mg/dL Glucose 104 H (74-99) mg/dL POC Glucose (mg/dL) 111 H (75-99) mg/dL Iron (50-170) ug/dL Iron Saturation (12.00-45.00) Assessment and Plan Plan: Assessment: 1. Nonoliguric acute kidney injury secondary to ATN secondary to cardiorenal syndrome and hemodynamic instability. Creatinine peaked at 1.7 this admission and is 1.64 today. Baseline creatinine is 1. Urinalysis is benign. 2. Systolic CHF with ejection fraction of 35-40%. 3. Left foot osteomyelitis maintained on daptomycin. Vancomycin discontinued. 4. Hypokalemia secondary to diuresis. Improved post replacement. 5. Anemia. Iron deficiency noted. 6. Atrial fibrillation maintained on IV heparin. Plan: Maintain Lasix 80 mg in the morning and 40 mg in the afternoon. Avoid nephrotoxic agents and hypotensive episodes. Vancomycin and NSAIDs have both been discontinued. Ferrlecit 125 mg IV daily for 3 days. First dose today. Add maintenance potassium supplementation.
[2018-04-30] MEDS: ATENOLOL 50 MG TAB PO SCH ×2 (09:16→21:18)
[2018-04-30] MEDS: CHOLECALCIFEROL 1,000 UNIT TAB PO SCH (09:16)
[2018-04-30] MEDS: FERROUS SULFATE 325 MG TAB PO SCH ×2 (09:16→21:18)
[2018-04-30] MEDS: cloNIDine HCL 0.2 MG TAB PO SCH (09:16)
[2018-04-30] MEDS: LOSARTAN 50 MG TAB PO SCH (09:17)
[2018-04-30] MEDS: FUROSEMIDE 80 MG TAB PO SCH (09:17)
[2018-04-30] MEDS ORDERED: POTASSIUM CHLORIDE ER 20 MEQ TAB.ER PO SCH (09:30)
[2018-04-30] MEDS: SODIUM FERRIC GLUCONAT-SUCROSE 125 MG in SODIUM CHLORIDE 0.9% 100 ML IVPB SCH (10:54)
[2018-04-30] MEDS: HEPARIN SODIUM,PORCINE/D5W PMX 25,000 UNIT in DEXTROSE/WATER 1 500ML.BAG IV SCH (11:01)
--- NOTE | 2018-04-30 11:38 | PN ---
PROGRESS NOTE Fernanda Costa is sitting up comfortably in bed. Her JVD has lessened considerably. She is not short of breath. She denies any chest discomfort. EXAMINATION: Her vitals are stable. She is afebrile, 97.8 degrees Fahrenheit, pulse rate in the 60s, blood pressure 126/57 mmHg, respirations 14-16. Heart sounds: S1, S2 are crisp. A systolic murmur is audible. Second heart sound is loud. Prosthetic sounds are audible. No S3 gallop. Breath sounds are reduced bilaterally. Extremities are warm. IMPRESSION: 1. Aortic valve disease, status post replacement. 2. Mitral valve disease status post replacement. 3. Severe pulmonary hypertension. 4. Congestive heart failure with reduced left ventricular systolic function, acute on chronic systolic failure, ejection fraction 35 to 40%. 5. Severely dilated left atrium. SUGGEST: Continue current medications including Lasix 80 mg in the morning, 40 mg in the afternoon, and metolazone 2.5 mg twice a week and follow up with Dr. Winn in 2 to 3 weeks. Patient may be discharged home after INR is greater than 2-2.5. Heparin may be discontinued. Lovenox is not indicated. Coumadin is indicated. Newer agents not indicated. MMODL / IJN: [id number] /
[2018-04-30 12:15] LABS: Glucose,Whole Blood 113 mg/dL (75-99)
[2018-04-30 16:39] LABS: Glucose,Whole Blood 139 mg/dL (75-99)
[2018-04-30] MEDS: WARFARIN 5 MG TAB PO SCH (16:53)
[2018-04-30] MEDS: FUROSEMIDE 40 MG TAB PO SCH (16:53)
--- NOTE | 2018-04-30 18:44 | PN ---
PROGRESS NOTE DATE OF SERVICE: 04/30/2018. PRESENTING COMPLAINT: Short of breath. INTERVAL HISTORY: Patient presented with CHF exacerbation, status post IV Lasix on IV heparin, waiting for INR to become therapeutic because of mechanical valve, also on antibiotics for osteomyelitis of the toe. REVIEW OF SYSTEMS: Done for constitutional, cardiovascular, GI, pulmonary; relevant findings as above. CURRENT MEDICATIONS: Reviewed. EXAMINATION: Temperature 97.4, pulse 68, respirations 16, blood pressure 113/58, pulse ox 96% on room air. GENERAL APPEARANCE: Sitting up, comfortable. EYES: Pupils equal. Conjunctivae normal. HEENT: External nose and ears normal. Oral cavity normal. NECK: JVD not raised. Mass not palpable. RESPIRATORY: Effort normal. LUNGS: Slightly decreased breath sounds. Edema present. ABDOMEN: Soft, nontender. Liver and spleen not palpable. PSYCHIATRY: Alert and oriented x3. Mood and affect were normal. INVESTIGATIONS: White count 4.3, hemoglobin 8.1, INR 2.1. Potassium 3.8, BUN 42, creatinine 1.64. ASSESSMENT: 1. Acute on chronic congestive heart failure exacerbation from systolic dysfunction, ejection fraction 35% on p.o. Lasix now. 2. Persistent atrial flutter, pacemaker in place. 3. 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 4. Severe tricuspid regurgitation, moderate mitral regurgitation, nonrheumatic. 5. Diabetes mellitus type 2, chronically on insulin. 6. Essential hypertension. 7. Hyperlipidemia. 8. Chronic kidney disease, stage 3B, from diabetic nephropathy and possible nephrosclerosis. 9. Peripheral neuropathy from diabetes. 10.Acute osteomyelitis of the left 2nd toe on IV antibiotics. 11.Obesity; BMI 31.8. 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 13.IV heparin monitoring. PLAN: Continue IV heparin until Coumadin comes up to about 3. Care was discussed with the patient. Follow. MMODL / IJN: [id number] /
[2018-04-30 20:59] LABS: Glucose,Whole Blood 143 mg/dL (75-99)
[2018-04-30] MEDS: ATORVASTATIN 20 MG TAB PO SCH (21:18)
[2018-04-30] MEDS: INSULIN DETEMIR 100 UNIT/ML 10 ML VIAL SQ SCH (21:18)
[2018-04-30] MEDS: TEMAZEPAM 7.5 MG CAP PO SCH (22:30)
[2018-04-30] MEDS: MELATONIN 5 MG TABLET PO SCH (22:31)
[2018-05-01 06:02] LABS: Glucose,Whole Blood 74 mg/dL (75-99)
[2018-05-01 06:20] LABS: Anisocytosis Moderate; Basophils % (A) 1 %; Eosinophils # (A) 0.3 k/uL (0-0.7); Eosinophils % (A) 6 %; HCT 27.3 % (34.0-46.0); HGB 8.1 gm/dL (11.4-16.0); Hypochromasia Marked; Lymphocytes # (A) 0.9 k/uL (1.0-4.8); Lymphocytes % (A) 19 %; MCH 23.5 pg (25.0-35.0); MCHC 29.8 g/dL (31.0-37.0); Mean Platelet Volume 6.8; Microcytosis Moderate; Monocytes # (A) 0.4 k/uL (0-1.0); Monocytes % (A) 8 %; Neutrophils % (A) 65 %; Platelet Count 247 k/uL (150-450); RBC 3.45 m/uL (3.80-5.40); RDW 21.3 % (11.5-15.5); WBC 4.6 k/uL (3.8-10.6)
[2018-05-01 06:41] LABS: INR 2.7 (<1.2); Prothrombin Time 24.6 sec (9.0-12.0)
[2018-05-01] MEDS: INSULIN ASPART 100 UNIT/ML 1 ML 10 ML VIAL SQ SCH ×2 (06:58→12:25)
[2018-05-01 07:07] LABS: Calcium 9.1 mg/dL (8.4-10.2); Magnesium 2.1 mg/dL (1.6-2.3); Potassium 3.8 mmol/L (3.5-5.1)
[2018-05-01] MEDS ORDERED: SPIRONOLACTONE 25 MG TAB PO SCH (09:00)
--- NOTE | 2018-05-01 09:10 | P.PN ---
Subjective Patient is seen in follow-up for acute kidney injury. Her baseline creatinine is near 1 and has been in the range of 1.6-1.7 this admission. Patient presented with dyspnea and edema. She is noted to have systolic CHF with ejection fraction of 35-40%. NSAIDs are held. Vancomycin has been discontinued. Admits to good urine output. Appetite is good. Vital signs are stable. General: The patient appeared well nourished and normally developed. HEENT: Head exam is unremarkable. Neck is without jugular venous distension. LUNGS: Lungs are clear to auscultation and percussion. Breath sounds decreased. HEART: Rate and Rhythm are regular. First and second heart sounds normal. No murmurs, rubs or gallops. ABDOMEN: Abdominal exam reveals normal bowel sounds. Non-tender and non- distended. No evidence of peritonitis. EXTREMITITES: 1+ edema. Objective - Vital Signs Vital signs: Vital Signs Temp 97.3 F L 05/01/18 04:00 Pulse 67 05/01/18 04:00 Resp 18 05/01/18 04:00 BP 152/69 05/01/18 04:00 Pulse Ox 98 05/01/18 04:00 Intake & Output 04/30/18 05/01/18 05/01/18 18:59 06:59 18:59 Intake Total 980 240 Output Total 700 Balance 980 -460 Weight 75.8 kg Intake: Intake, IV Titration 500 Amount Heparin Sodium,Porcine/ 500 D5w Pmx 25,000 unit In Dextrose/Water 1 500ml. bag @ 12 UNITS/KG/HR 18. 94 mls/hr IV .Q24H [facility] Rx #:[id number] Oral 480 240 Output: Urine 700 Other: Voiding Method Toilet # Voids 1 1 - Labs CBC & Chem 7: 05/01/18 05:34 05/01/18 05:34 Labs: Abnormal Lab Results - Last 24 Hours (Table) 04/30/18 04/30/18 04/30/18 Range/Units 12:13 16:33 20:52 RBC (3.80-5.40) m/uL Hgb (11.4-16.0) gm/dL Hct (34.0-46.0) % MCV (80.0-100.0) fL MCH (25.0-35.0) pg MCHC (31.0-37.0) g/dL RDW (11.5-15.5) % Lymphocytes # (1.0-4.8) k/uL PT (9.0-12.0) sec INR (<1.2) APTT (22.0-30.0) sec BUN (7-17) mg/dL Creatinine (0.52-1.04) mg/dL Glucose (74-99) mg/dL POC Glucose (mg/dL) 113 H 139 H 143 H (75-99) mg/dL 05/01/1818 05/01/18 Range/Units 05:34 05:34 05:34 RBC 3.45 L (3.80-5.40) m/uL Hgb 8.1 L (11.4-16.0) gm/dL Hct 27.3 L (34.0-46.0) % MCV 79.0 L (80.0-100.0) fL MCH 23.5 L (25.0-35.0) pg MCHC 29.8 L (31.0-37.0) g/dL RDW 21.3 H (11.5-15.5) % Lymphocytes # 0.9 L (1.0-4.8) k/uL PT 24.6 H (9.0-12.0) sec INR 2.7 H (<1.2) APTT (22.0-30.0) sec BUN 39 H (7-17) mg/dL Creatinine 1.70 H (0.52-1.04) mg/dL Glucose 67 L (74-99) mg/dL POC Glucose (mg/dL) (75-99) mg/dL 05/01/18 05/01/18 Range/Units 05:58 07:49 RBC (3.80-5.40) m/uL Hgb (11.4-16.0) gm/dL Hct (34.0-46.0) % MCV (80.0-100.0) fL MCH (25.0-35.0) pg MCHC (31.0-37.0) g/dL RDW (11.5-15.5) % Lymphocytes # (1.0-4.8) k/uL PT (9.0-12.0) sec INR (<1.2) APTT 171.4 H* (22.0-30.0) sec BUN (7-17) mg/dL Creatinine (0.52-1.04) mg/dL Glucose (74-99) mg/dL POC Glucose (mg/dL) 74 L (75-99) mg/dL Assessment and Plan Plan: Assessment: 1. Nonoliguric acute kidney injury secondary to ATN secondary to cardiorenal syndrome and hemodynamic instability. Creatinine now in the range of 1.6-1.7. Baseline creatinine is 1. Urinalysis is benign. 2. Systolic CHF with ejection fraction of 35-40%. 3. Left foot osteomyelitis maintained on daptomycin. Vancomycin discontinued. 4. Hypokalemia secondary to diuresis. Improved post replacement. 5. Anemia. Iron deficiency noted. 6. Atrial fibrillation maintained on IV heparin. Plan: Maintain Lasix 80 mg in the morning and 40 mg in the afternoon. Avoid nephrotoxic agents and hypotensive episodes. Vancomycin and NSAIDs have both been discontinued. Ferrlecit 125 mg IV daily for 3 days. Second dose today. Maintain potassium supplementation. I advised her to follow a 50-60 ounces fluid restriction daily and also low- salt diet. She will need to follow-up as an outpatient in the next 1-2 weeks.
[2018-05-01] MEDS: SODIUM FERRIC GLUCONAT-SUCROSE 125 MG in SODIUM CHLORIDE 0.9% 100 ML IVPB SCH (09:28)
[2018-05-01] MEDS: FERROUS SULFATE 325 MG TAB PO SCH (09:29)
[2018-05-01] MEDS: cloNIDine HCL 0.2 MG TAB PO SCH (09:29)
[2018-05-01] MEDS: ATENOLOL 50 MG TAB PO SCH (09:29)
[2018-05-01] MEDS: FUROSEMIDE 80 MG TAB PO SCH (09:29)
[2018-05-01] MEDS: CHOLECALCIFEROL 1,000 UNIT TAB PO SCH (09:29)
[2018-05-01] MEDS: LOSARTAN 50 MG TAB PO SCH (09:30)
[2018-05-01 09:58] VITALS: TEMP 97.9
[2018-05-01 11:58] LABS: Glucose,Whole Blood 88 mg/dL (75-99)
--- NOTE | 2018-05-01 12:15 | PN ---
PROGRESS NOTE Fernanda Costa 77-year-old female who was here with heart failure symptoms. She has severe pulmonary hypertension and the aortic valve mitral valve replacement. Yesterday I had decreased the dose of Lasix to 40 mg once daily and discharge planning was being considered. However, she was held back because of her anemia and she received intravenous iron therapy. While I do not find short of breath today, she definitely has JVD sitting up. EXAMINATION: Prosthetic sounds are audible, which are crisp. No gallop. Breath sounds are reduced bilaterally. She has JVD. She has no lower extremity edema. SUGGEST: Add spironolactone to Lasix as well as metolazone. I would add 50 mg p.o. daily of spironolactone. Her INR is 2.7. She may go home from a cardiac standpoint. Follow up with Dr. Winn, who is her primary electrical instrument repairer. MMODL / IJN: [id number] /
[2018-05-01] MEDS: DAPTOmycin 500 MG in SODIUM CHLORIDE 0.9% 50 ML IVPB SCH (12:25)
[2018-05-01 12:43] VITALS: BP 110/69; PULSE 61; RESP 18
--- NOTE | 2018-05-02 13:07 | DS ---
DISCHARGE SUMMARY DATE OF ADMISSION: April 25, 2018. DATE OF DISCHARGE: May 01, 2018. FINAL DIAGNOSES: 1. Acute on chronic congestive heart failure exacerbation from systolic dysfunction EF 35%. 2. Persistent atrial flutter, pacemaker in place. 3. 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 4. Severe tricuspid regurgitation, moderate mitral regurgitation, nonrheumatic. 5. Diabetes mellitus type 2, chronically on insulin. 6. Essential hypertension. 7. Hyperlipidemia. 8. Chronic kidney disease, stage IIIB, from diabetic nephropathy, possible nephrosclerosis. 9. Peripheral neuropathy from diabetes. 10.Acute osteomyelitis of the left 2nd toe. The patient is on IV antibiotics. 11.Obesity; BMI 31.8. 12.Mechanical aortic and mitral valve from 1994 from being on Coumadin. 13.IV heparin monitoring. CONSULTATIONS: Dr. Frost from Cardiology, Dr. Pichardo from Nephrology and Dr. Johnson from Infectious. HOSPITAL COURSE: The patient presented with short of breath, found to be in CHF exacerbation, treated with Lasix. The patient has chronic kidney disease and creatinine at the time of discharge was 1.7. The patient osteomyelitis being followed by Dr. Johnson who switched the patient from vancomycin to daptomycin. EXAMINATION: Lungs fair entry. Edema present. Psych AO x3. Toe wound infection healing well. DISCHARGE MEDICATIONS: 1. Atenolol 50 mg b.i.d. insulin Aspart 7 units with breakfast, 8 units with lunch, 10 units with supper. 2. Cozaar 100 mg a day. 3. Catapres 0.2 mg a day. 4. Zaroxolyn 2.5 mg on Wednesday. 5. Zocor 40 mg q.h.s. 6. Insulin Tarceva 20 units subcu q.h.s. 7. Vitamin D3 1000 units p.o. daily. 8. Iron 65 mg p.o. b.i.d. 9. Daptomycin mg IV piggyback every [address] Johnson, duration per him. 10.Lasix 60 mg p.o. b.i.d. 11.Aldactone 50 mg p.o. daily. 12.Coumadin 5 mg daily except 2.5 mg on Mondays and . 13.The patient to continue with IV antibiotic infusion as arranged. FOLLOWUP: Follow up with Dr. Alex in 1 week. Follow up with Cardiology per their followup, follow up with Dr. Garza on May 03, 2018. Copy to Dr. Garza. MMODL / IJN: [id number] /
== END 2018-05-01 16:03 | disposition home or self-care (01) | DRG 291 ==
LOC: EC 17:26 → 6SEL 19:22
PROVIDERS: ADMIT Hospitalist; ATTEND Hospitalist
DX: I13.0 Hypertensive heart and chronic kidney disease with heart failure and stage 1 through stage 4 chronic kidney disease, or unspecified chronic kidney disease (principal); I50.23 Acute on chronic systolic (congestive) heart failure; N17.0 Acute kidney failure with tubular necrosis; I48.92 Unspecified atrial flutter; M86.172 Other acute osteomyelitis, left ankle and foot; T82.857A Stenosis of other cardiac prosthetic devices, implants and grafts, initial encounter; I42.9 Cardiomyopathy, unspecified; N18.3 Chronic kidney disease, stage 3 (moderate); E11.22 Type 2 diabetes mellitus with diabetic chronic kidney disease; E66.9 Obesity, unspecified; E78.5 Hyperlipidemia, unspecified; E11.42 Type 2 diabetes mellitus with diabetic polyneuropathy; I48.2 Chronic atrial fibrillation; E11.69 Type 2 diabetes mellitus with other specified complication; E11.21 Type 2 diabetes mellitus with diabetic nephropathy; D50.9 Iron deficiency anemia, unspecified; Z96.1 Presence of intraocular lens; E87.6 Hypokalemia; T50.2X5A Adverse effect of carbonic-anhydrase inhibitors, benzothiadiazides and other diuretics, initial encounter; R79.1 Abnormal coagulation profile; Y83.1 Surgical operation with implant of artificial internal device as the cause of abnormal reaction of the patient, or of later complication, without mention of misadventure at the time of the procedure; I36.1 Nonrheumatic tricuspid (valve) insufficiency; I34.0 Nonrheumatic mitral (valve) insufficiency; I27.29 Other secondary pulmonary hypertension; Z79.4 Long term (current) use of insulin; Z68.31 Body mass index [BMI] 31.0-31.9, adult; Z95.2 Presence of prosthetic heart valve; Z95.0 Presence of cardiac pacemaker; Z90.49 Acquired absence of other specified parts of digestive tract; Z90.710 Acquired absence of both cervix and uterus; Z98.42 Cataract extraction status, left eye; Z98.41 Cataract extraction status, right eye; Z91.041 Radiographic dye allergy status; Z79.899 Other long term (current) drug therapy; Z79.01 Long term (current) use of anticoagulants
CPT/HCPCS: 36415; 36591; 36593; 71046; 80048; 80053; 80202; 81001; 82550; 82553; 82728; 83540; 83550; 83735; 83880; 84484; 85025; 85610; 85652; 85730; 86140; 86850; 86900; 86901; 93005; 93306; 94760; 96365; 96366; 96368; 96375; 96376; 99285

== ENCOUNTER → 2018-05-16 | Outpatient (CLI) | payer MEDICARE, BC ==
[2018-05-16 12:34] LABS: Anisocytosis Slight; Basophils # (A) 0.1 k/uL (0-0.2); Basophils % (A) 1 %; Eosinophils # (A) 0.3 k/uL (0-0.7); Eosinophils % (A) 4 %; HCT 32.2 % (34.0-46.0); HGB 9.8 gm/dL (11.4-16.0); Hypochromasia Moderate; Lymphocytes % (A) 15 %; MCH 24.6 pg (25.0-35.0); MCHC 30.6 g/dL (31.0-37.0); MCV 80.4 fL (80.0-100.0); Mean Platelet Volume 6.8; Microcytosis Slight; Monocytes # (A) 0.4 k/uL (0-1.0); Monocytes % (A) 6 %; Neutrophils # (A) 4.8 k/uL (1.3-7.7); Neutrophils % (A) 72 %; Platelet Count 267 k/uL (150-450); WBC 6.6 k/uL (3.8-10.6)
[2018-05-16 12:55] LABS: Albumin 4.4 g/dL (3.5-5.0); Calcium 9.9 mg/dL (8.4-10.2); Magnesium 2.2 mg/dL (1.6-2.3); Potassium 5.6 mmol/L (3.5-5.1); Total Bilirubin 1.2 mg/dL (0.2-1.3); Total Protein 7.7 g/dL (6.3-8.2); Uric Acid 12.5 mg/dL (3.7-7.4)
[2018-05-16 20:04] LABS: Parathyroid Hormone Intact 73.9 pg/mL (14.0-72.0)
[2018-05-16 20:07] LABS: Vitamin D 25 Hydroxy 40.6 ng/mL (30.0-100.0)
[2018-05-16 20:19] LABS: Folate, Serum 12.7 ng/mL; Iron Saturation 10.88 (12.00-45.00)
== END | disposition home or self-care (01) ==
LOC: LABWHC1 11:02
PROVIDERS: ATTEND Family Medicine
DX: N18.3 Chronic kidney disease, stage 3 (moderate) (principal); D63.1 Anemia in chronic kidney disease
CPT/HCPCS: 36415; 80053; 82306; 82607; 82728; 82746; 83540; 83550; 83735; 83970; 84550; 85025

== ENCOUNTER 2018-06-03 11:43 | Inpatient (IN) | payer MEDICARE, BC ==
[2018-06-03] MEDS ORDERED: SODIUM CHLORIDE 0.9% 1,000 ML IV STA (12:43)
[2018-06-03] MEDS ORDERED: PANTOPRAZOLE 40 MG/10 ML VIAL IVP STA (12:43)
--- NOTE | 2018-06-03 12:47 | ED ---
General Adult HPI - General Chief complaint: GI Bleed Stated complaint: Rectal Bleeding Time Seen by Provider: 06/03/18 12:32 Source: patient, family, RN notes reviewed Mode of arrival: ambulatory Limitations: no limitations - History of Present Illness Initial comments: Patient is a pleasant 78-year-old female presenting to the emergency Department with rectal bleeding. Patient is on Coumadin with history of valve replacement. Patient does have somewhat chronic dark stools secondary to being on iron. Patient did stop iron several days ago. Patient has had some bloody stools over the past 2 days. Usually this occurs more in the morning. Patient has some lower abdominal discomfort in the morning however none at this time. No fevers. No vomiting. - Related Data Home Medications Medication Instructions Recorded Confirmed Atenolol [Tenormin] 50 mg PO BID 10/12/16 06/03/18 Insulin Aspart [NovoLOG Flexpen] 7 units SQ AC-BRKFST 10/12/16 06/03/18 Insulin Aspart [NovoLOG Flexpen] 8 units SQ AC-LUNCH 10/12/16 06/03/18 Insulin Aspart [NovoLOG Flexpen] 10 units SQ AC-SUPPER 10/12/16 06/03/18 Losartan [Cozaar] 100 mg PO DAILY 10/12/16 06/03/18 cloNIDine HCL [Catapres] 0.2 mg PO DAILY 10/12/16 06/03/18 Metolazone [Zaroxolyn] 2.5 mg PO TU 03/16/17 06/03/18 Simvastatin [Zocor] 40 mg PO HS 03/18/17 06/03/18 Insulin Degludec [Tresiba 24 units SQ 04/23/18 06/03/18 Flextouch U-100] Cholecalciferol [Vitamin D3] 1,000 unit PO DAILY 04/25/18 06/03/18 Ferrous Sulfate [Iron (65 MG 325 mg PO BID 04/25/18 06/03/18 Elemental)] Furosemide [Lasix] 40 mg PO BID 06/03/18 06/03/18 Warfarin [Coumadin] 2.5 mg PO MOTH 06/03/18 06/03/18 Warfarin [Coumadin] 5 mg PO [id number] 06/03/18 06/03/18 Previous Rx's Medication Instructions Recorded Spironolactone [Aldactone] 50 mg PO DAILY #30 tab 05/01/18 Allergies Allergy/AdvReac Type Severity Reaction Status Date / Time Iodinated Contrast- Oral and Allergy Rash/Hives Verified 06/03/18 12:11 IV Dye [Iodinated Contrast Media - IV Dye] Review of Systems ROS Statement: Those systems with pertinent positive or pertinent negative responses have been documented in the HPI. ROS Other: All systems not noted in ROS Statement are negative. Constitutional: Denies: fever Eyes: Denies: eye pain ENT: Denies: ear pain Respiratory: Denies: cough Cardiovascular: Denies: chest pain Endocrine: Reports: fatigue Gastrointestinal: Reports: abdominal pain, melena, hematochezia Genitourinary: Denies: dysuria Musculoskeletal: Denies: back pain Skin: Denies: rash Neurological: Denies: weakness Past Medical History Past Medical History: Diabetes Mellitus Additional Past Medical History / Comment(s): IDDM type II, neuropathy bilateral feet, rheumatic fever 30's, osteomylitis, chronic kidney disease stage IIIB, History of Any Multi-Drug Resistant Organisms: None Reported Past Surgical History: Appendectomy, Cardiac Valve Replacement, Hysterectomy, Pacemaker Additional Past Surgical History / Comment(s): Current picc line R upper arm, 1994 mitral and aortic mechanical valves placed, Pacemakers-has had 2 or 3, colonoscopy, debridements bilateral great toe diabetic ulcers, bilateral cataract removals with lens implants. Past Anesthesia/Blood Transfusion Reactions: No Reported Reaction Additional Past Anesthesia/Blood Transfusion Reaction / Comment(s): Pt has received blood in past without reaction. Type of Cardiac Device: Permanent Pacemaker Device Placement Date:: Pt cannot recall date of last pacer insertion but battery changed 2011 Past Psychological History: No Psychological Hx Reported Smoking Status: Never smoker Past Alcohol Use History: None Reported Past Drug Use History: None Reported - Past Family History Brother(s) Additional Family Medical History / Comment(s): patient states brother had " heart problems" Father History Unknown: Yes Additional Family Medical History / Comment(s): Father committed suicide in his 50s. Mother History Unknown: Yes Family Medical History: No Reported History Additional Family Medical History / Comment(s): Mother was healthy and lived to be 92 yrs old. General Exam Limitations: no limitations General appearance: alert, in no apparent distress Head exam: Present: atraumatic Eye exam: Present: normal appearance, PERRL ENT exam: Present: normal oropharynx Neck exam: Present: normal inspection Respiratory exam: Present: normal lung sounds bilaterally Cardiovascular Exam: Present: regular rate, normal rhythm, systolic murmur GI/Abdominal exam: Present: soft. Absent: tenderness Rectal exam: Present: black stool Extremities exam: Present: normal inspection Neurological exam: Present: alert Psychiatric exam: Present: normal affect, normal mood Skin exam: Present: normal color Course Vital Signs 06/03/18 11:44 Temperature 97.7 F Pulse Rate 65 Respiratory 18 Rate Blood Pressure 127/56 O2 Sat by Pulse 97 Oximetry EKG Findings - EKG Comments: EKG Findings:: Paced rhythm at 60. QRS to 24. QT 526. QTc 526. Left axis. Wide-complex QRS. Nonspecific ST-T. Medical Decision Making - Medical Decision Making Patient reevaluated. Patient and family updated. Case discussed with Dr. Smith , who will admit covering for Dr. weiner, who admits for Dr. Garza. He does not want any emergent treatment for INR at this time. - Lab Data Result diagrams: 06/03/18 12:15 Lab Results 06/03/18 06/03/18 06/03/18 Range/Units 12:15 12:15 12:40 WBC 7.9 (3.8-10.6) k/uL RBC 3.06 L (3.80-5.40) m/uL Hgb 7.9 L (11.4-16.0) gm/dL Hct 24.6 L (34.0-46.0) % MCV 80.4 (80.0-100.0) fL MCH 25.8 (25.0-35.0) pg MCHC 32.1 (31.0-37.0) g/dL RDW 19.0 H (11.5-15.5) % Plt Count 268 (150-450) k/uL Neutrophils % 74 % Lymphocytes % 14 % Monocytes % 6 % Eosinophils % 2 % Basophils % 1 % Neutrophils # 5.9 (1.3-7.7) k/uL Lymphocytes # 1.1 (1.0-4.8) k/uL Monocytes # 0.5 (0-1.0) k/uL Eosinophils # 0.2 (0-0.7) k/uL Basophils # 0.1 (0-0.2) k/uL Hypochromasia Slight Anisocytosis Slight Microcytosis Slight PT 21.8 H (9.0-12.0) sec INR 2.4 H (<1.2) APTT 30.6 H (22.0-30.0) sec Stool Occult Blood Positive H (Negative) - Radiology Data Radiology results: report reviewed (Abdominal x-ray shows oval density right lower quadrant, nonobstructive exam. I'm unable to visualize films.) Disposition Clinical Impression: Lower gastrointestinal hemorrhage Disposition: ADMITTED IP TO THIS HOSP Is patient prescribed a controlled substance at d/c from ED?: No Referrals: Home Garza MD [Primary Care Provider] - 1-2 days Decision Time: 13:49
[2018-06-03 13:07] LABS: Anisocytosis Slight; Basophils # (A) 0.1 k/uL (0-0.2); Basophils % (A) 1 %; Eosinophils # (A) 0.2 k/uL (0-0.7); Eosinophils % (A) 2 %; HCT 24.6 % (34.0-46.0); HGB 7.9 gm/dL (11.4-16.0); Hypochromasia Slight; Lymphocytes # (A) 1.1 k/uL (1.0-4.8); Lymphocytes % (A) 14 %; MCH 25.8 pg (25.0-35.0); MCHC 32.1 g/dL (31.0-37.0); MCV 80.4 fL (80.0-100.0); Microcytosis Slight; Monocytes # (A) 0.5 k/uL (0-1.0); Monocytes % (A) 6 %; Neutrophils # (A) 5.9 k/uL (1.3-7.7); Neutrophils % (A) 74 %; Platelet Count 268 k/uL (150-450); RBC 3.06 m/uL (3.80-5.40); WBC 7.9 k/uL (3.8-10.6)
--- NOTE | 2018-06-03 13:13 | XR ---
EXAMINATION TYPE: XR abdomen 1V DATE OF EXAM: 06/03/2018 1:01 PM CLINICAL HISTORY: Abdominal pain and diarrhea with bloody stools TECHNIQUE: Two Upright KUB images of the abdomen are obtained. COMPARISON: None. FINDINGS: Scattered gas is seen in non-distended stomach and small bowel loops. Gas is seen in non-di stended colon. There is dextroconvex scoliosis centered in the upper lumbar spine. There is marked sp urring and disc space narrowing right L4-L5 level. No pneumoperitoneum is seen. There is cardiomegaly with single lead pacemaker and sternal wires. There is 4 cm oval density right lower quadrant of unc ertain etiology. IMPRESSION: Overall nonobstructive bowel gas pattern. A 4 cm oval density right lower quadrant of uncertain etiol ogy, consider CT correlation
[2018-06-03 13:28] LABS: INR 2.4 (<1.2); Partial Thromboplastin Time 30.6 sec (22.0-30.0); Prothrombin Time 21.8 sec (9.0-12.0)
[2018-06-03 13:34] LABS: Albumin 4.5 g/dL (3.5-5.0); Calcium 9.5 mg/dL (8.4-10.2); Total Bilirubin 1.1 mg/dL (0.2-1.3); Total Protein 7.7 g/dL (6.3-8.2)
[2018-06-03] MEDS ORDERED: NALOXONE 0.4 MG/ML 1 ML VIAL IV PRN ×2 (13:50→15:45)
[2018-06-03 13:54] LABS: Potassium 7.2 mmol/L (3.5-5.1)
[2018-06-03] MEDS ORDERED: SODIUM CHLORIDE 0.9% IV ONE (14:03)
[2018-06-03] MEDS ORDERED: CALCIUM CHLORIDE IV ONE (14:03)
[2018-06-03] MEDS ORDERED: SODIUM BICARB 8.4% 50 ML SYR (1 MEQ/ML) IV ONE (14:04)
[2018-06-03] MEDS ORDERED: INSULIN REGULAR 100 UNIT/ML VIAL IV ONE ×2 (14:05→19:10)
[2018-06-03] MEDS ORDERED: DEXTROSE 50%-WATER 50 ML SYRINGE IVP STA ×2 (14:05→19:10)
[2018-06-03] MEDS ORDERED: ALBUTEROL NEBULIZED 2.5 MG/3 ML INHALATION STA (14:06)
[2018-06-03] MEDS ORDERED: SODIUM CHLORIDE 0.9% 500 ML IV STA (14:07)
[2018-06-03] MEDS: SODIUM CHLORIDE 0.9% 1,000 ML IV SCH (15:20)
[2018-06-03] MEDS ORDERED: SODIUM POLYSTYRENE SULFONATE 15 GM/60 ML BOTTLE PO STA (15:55)
--- NOTE | 2018-06-03 16:02 | P.HPIM ---
History of Present Illness H&P Date: 06/03/18 Chief Complaint: GI bleeding 78-year-old female who was discharged from the hospital last month after a hospital stay for congestive heart failure exacerbation presented back to the ER because of black stools. Patient stated that she has been having black stools for the last several months/years since she was started on iron tablets but over the last several days he ran out of the iron and continued to have black stools so she got concerned. She says that she feels dizzy at times especially when she gets up but denied any loss of consciousness, focal weakness or numbness. She has some suprapubic cramping abdominal pain but otherwise no diarrhea or constipation. No urinary symptoms. No chest pain or shortness of breath. No fever or chills. Review of Systems 12 point review of system performed, negative except HPI Past Medical History Past Medical History: Diabetes Mellitus Additional Past Medical History / Comment(s): IDDM type II, neuropathy bilateral feet, rheumatic fever 30's, osteomylitis, chronic kidney disease stage IIIB, History of Any Multi-Drug Resistant Organisms: None Reported Past Surgical History: Appendectomy, Cardiac Valve Replacement, Hysterectomy, Pacemaker Additional Past Surgical History / Comment(s): Current picc line R upper arm, 1994 mitral and aortic mechanical valves placed, Pacemakers-has had 2 or 3, colonoscopy, debridements bilateral great toe diabetic ulcers, bilateral cataract removals with lens implants. Past Anesthesia/Blood Transfusion Reactions: No Reported Reaction Additional Past Anesthesia/Blood Transfusion Reaction / Comment(s): Pt has received blood in past without reaction. Type of Cardiac Device: Permanent Pacemaker Device Placement Date:: Pt cannot recall date of last pacer insertion but battery changed 2011 Past Psychological History: No Psychological Hx Reported Smoking Status: Never smoker Past Alcohol Use History: None Reported Past Drug Use History: None Reported - Past Family History Brother(s) Additional Family Medical History / Comment(s): patient states brother had " heart problems" Father History Unknown: Yes Additional Family Medical History / Comment(s): Father committed suicide in his 50s. Mother History Unknown: Yes Family Medical History: No Reported History Additional Family Medical History / Comment(s): Mother was healthy and lived to be 92 yrs old. Medications and Allergies Home Medications Medication Instructions Recorded Confirmed Type Atenolol [Tenormin] 50 mg PO BID 10/12/16 06/03/18 History Insulin Aspart [NovoLOG Flexpen] 7 units SQ AC-BRKFST 10/12/16 06/03/18 History Insulin Aspart [NovoLOG Flexpen] 8 units SQ AC-LUNCH 10/12/16 06/03/18 History Insulin Aspart [NovoLOG Flexpen] 10 units SQ AC-SUPPER 10/12/16 06/03/18 History Losartan [Cozaar] 100 mg PO DAILY 10/12/16 06/03/18 History cloNIDine HCL [Catapres] 0.2 mg PO DAILY 10/12/16 06/03/18 History Metolazone [Zaroxolyn] 2.5 mg PO TU 03/16/17 06/03/18 History Simvastatin [Zocor] 40 mg PO HS 03/18/17 06/03/18 History Insulin Degludec [Tresiba 24 units SQ HS 04/23/18 06/03/18 History Flextouch U-100] Cholecalciferol [Vitamin D3] 1,000 unit PO DAILY 04/25/18 06/03/18 History Ferrous Sulfate [Iron (65 MG 325 mg PO BID 04/25/18 06/03/18 History Elemental)] Spironolactone [Aldactone] 50 mg PO DAILY #30 tab 05/01/18 06/03/18 Rx Furosemide [Lasix] 40 mg PO BID 06/03/18 06/03/18 History Warfarin [Coumadin] 2.5 mg PO MOTH 06/03/18 06/03/18 History Warfarin [Coumadin] 5 mg PO [id number] 06/03/18 06/03/18 History Allergies Allergy/AdvReac Type Severity Reaction Status Date / Time Iodinated Contrast- Oral and Allergy Rash/Hives Verified 06/03/18 12:11 IV Dye [Iodinated Contrast Media - IV Dye] Physical Exam Vitals: Vital Signs Temp Pulse Resp BP Pulse Ox 06/03/18 14:42 61 16 130/49 100 06/03/18 14:34 60 16 06/03/18 14:27 62 14 06/03/18 11:44 97.7 F 65 18 127/56 97 Intake and Output 06/03/18 06/03/18 06/03/18 06:59 14:59 22:59 Other: Weight 71.668 kg Constitutional: No acute distress, conversant, pleasant, looks pale Eyes:Anicteric sclerae, moist conjunctiva, no lid-lag, PERRLA, ENMT: Oropharynx clear, no erythema, exudates Neck: Supple, FROM, no masses, or JVD, No carotid bruits, No thyromegaly Lungs: Clear to auscultation, Clear to percussion, Normal respiratory effort, no accessory muscle use Cardiovascular: Mechanical S1 and S2 , regular in rate and rhythm, No murmurs, gallops, or rubs, No peripheral edema Abdominal: Soft, Nontender, no guarding, rebound or rigidity, Normoactive bowel sounds, No hepatomegaly, No splenomegaly, No palpable mass Skin: Normal temperature, tone, texture, turgor, no induration, No subcutaneous nodules, No rash, lesions, No ulcers Extremities: No digital cyanosis, No clubbing, Pedal pulses intact and symmetrical, Radial pulses intact and symmetrical, No calf tenderness Psychiatric: Alert and oriented to person, place and time, appropriate affect, intact judgement Neuro: Muscles Strength 5/5 in all 4 extremities, Sensation to light touch grossly present throughout, Cranial nerves II-XII grossly intact, no focal sensory deficits Results CBC & Chem 7: 06/03/18 12:15 06/03/18 12:15 Labs: Abnormal Lab Results - Last 24 Hours (Table) 06/03/18 06/03/18 06/03/18 Range/Units 12:15 12:15 12:15 RBC 3.06 L (3.80-5.40) m/uL Hgb 7.9 L (11.4-16.0) gm/dL Hct 24.6 L (34.0-46.0) % RDW 19.0 H (11.5-15.5) % PT 21.8 H (9.0-12.0) sec INR 2.4 H (<1.2) APTT 30.6 H (22.0-30.0) sec Sodium 133 L (137-145) mmol/L Potassium 7.2 H* (3.5-5.1) mmol/L Carbon Dioxide 19 L (22-30) mmol/L BUN 91 H* (7-17) mg/dL Creatinine 4.08 H (0.52-1.04) mg/dL Stool Occult Blood (Negative) 06/03/18 Range/Units 12:40 RBC (3.80-5.40) m/uL Hgb (11.4-16.0) gm/dL Hct (34.0-46.0) % RDW (11.5-15.5) % PT (9.0-12.0) sec INR (<1.2) APTT (22.0-30.0) sec Sodium (137-145) mmol/L Potassium (3.5-5.1) mmol/L Carbon Dioxide (22-30) mmol/L BUN (7-17) mg/dL Creatinine (0.52-1.04) mg/dL Stool Occult Blood Positive H (Negative) Assessment and Plan Plan: Suspected GI bleeding Unclear if patient truly has GI bleeding Protonix twice a day Follow CBC in a.m. GI consult Acute on chronic renal failure stage III/hyperkalemia Was given bicarb, insulin with D50 and calcium in ER Kayexalate 30 g Gentle IV fluid hydration Hold losartan and diuretics Follow K now Follow-up creatinine in a.m., if no improvement consult nephrology Status post aortic and mitral mechanical valve replacements Continue Coumadin as suspicion for GI bleeding is low, INR therapeutic, follow in a.m. DM type II, neuropathy bilateral feet, Blood sugar is borderline, patient will only be on clear liquid diet, hold home insulin regimen and start sliding scale insulin with blood sugar checks every before meals and at bedtime Hypertension, essential Continue clonidine and atenolol, hold LOSARTAN Stable DVT prophylaxis Already on Coumadin SCDs
[2018-06-03] MEDS ORDERED: INSULIN ASPART 100 UNIT/ML 1 ML 10 ML VIAL SQ SCH ×2 (17:30)
[2018-06-03 18:10] LABS: Albumin 3.8 g/dL (3.5-5.0); Calcium 10.2 mg/dL (8.4-10.2); Magnesium 2.5 mg/dL (1.6-2.3); Phosphorus 7.9 mg/dL (2.5-4.5); Total Bilirubin 0.8 mg/dL (0.2-1.3); Total Protein 6.6 g/dL (6.3-8.2)
[2018-06-03] MEDS ORDERED: INSULIN DETEMIR 100 UNIT/ML 10 ML VIAL SQ SCH (21:00)
[2018-06-03] MEDS: INSULIN ASPART 100 UNIT/ML 1 ML 10 ML VIAL SQ SCH ×2 (21:46→22:13)
[2018-06-03 22:07] LABS: Glucose,Whole Blood 79 mg/dL (75-99)
[2018-06-03] MEDS: ATENOLOL 50 MG TAB PO SCH (22:12)
[2018-06-03] MEDS: WARFARIN 5 MG TAB PO SCH ×2 (22:13→22:14)
[2018-06-03] MEDS: PANTOPRAZOLE 40 MG/10 ML VIAL IV SCH (22:14)
[2018-06-03] MEDS: ATORVASTATIN 20 MG TAB PO SCH (22:16)
[2018-06-03 23:17] LABS: Anisocytosis Slight; Basophils # (A) 0.1 k/uL (0-0.2); Basophils % (A) 1 %; Eosinophils # (A) 0.2 k/uL (0-0.7); Eosinophils % (A) 2 %; HCT 27.1 % (34.0-46.0); HGB 8.3 gm/dL (11.4-16.0); Hypochromasia Moderate; Lymphocytes # (A) 1.7 k/uL (1.0-4.8); Lymphocytes % (A) 18 %; MCH 25.3 pg (25.0-35.0); MCHC 30.6 g/dL (31.0-37.0); MCV 82.6 fL (80.0-100.0); Mean Platelet Volume 6.5; Microcytosis Slight; Monocytes # (A) 0.6 k/uL (0-1.0); Monocytes % (A) 7 %; Neutrophils # (A) 6.4 k/uL (1.3-7.7); Neutrophils % (A) 70 %; Platelet Count 300 k/uL (150-450); RBC 3.28 m/uL (3.80-5.40); WBC 9.2 k/uL (3.8-10.6)
[2018-06-04] MEDS: WARFARIN 5 MG TAB PO SCH ×2 (01:54→15:07)
[2018-06-04] MEDS: SODIUM CHLORIDE 0.9% 1,000 ML IV SCH ×2 (02:43→11:45)
[2018-06-04 03:56] LABS: Anisocytosis Slight; Basophils # (A) 0.1 k/uL (0-0.2); Basophils % (A) 1 %; Eosinophils # (A) 0.1 k/uL (0-0.7); Eosinophils % (A) 2 %; HCT 22.6 % (34.0-46.0); HGB 7.1 gm/dL (11.4-16.0); Hypochromasia Slight; Lymphocytes # (A) 0.9 k/uL (1.0-4.8); Lymphocytes % (A) 17 %; MCH 25.4 pg (25.0-35.0); MCHC 31.3 g/dL (31.0-37.0); MCV 81.1 fL (80.0-100.0); Mean Platelet Volume 6.4; Microcytosis Slight; Monocytes # (A) 0.4 k/uL (0-1.0); Monocytes % (A) 8 %; Neutrophils # (A) 3.4 k/uL (1.3-7.7); Neutrophils % (A) 69 %; Platelet Count 225 k/uL (150-450); RBC 2.78 m/uL (3.80-5.40); RDW 18.8 % (11.5-15.5); WBC 4.9 k/uL (3.8-10.6)
[2018-06-04 04:00] LABS: Albumin 3.7 g/dL (3.5-5.0); Calcium 9.2 mg/dL (8.4-10.2); Magnesium 2.2 mg/dL (1.6-2.3); Phosphorus 7.2 mg/dL (2.5-4.5); Potassium 5.2 mmol/L (3.5-5.1); Total Protein 6.5 g/dL (6.3-8.2)
[2018-06-04 04:02] LABS: INR 2.3 (<1.2); Prothrombin Time 20.4 sec (9.0-12.0)
[2018-06-04 06:06] LABS: Glucose,Whole Blood 84 mg/dL (75-99)
[2018-06-04] MEDS: INSULIN ASPART 100 UNIT/ML 1 ML 10 ML VIAL SQ SCH ×4 (06:29→22:06)
[2018-06-04] MEDS ORDERED: INSULIN ASPART 100 UNIT/ML 1 ML 10 ML VIAL SQ SCH ×2 (07:30→12:30)
[2018-06-04] MEDS: ATENOLOL 50 MG TAB PO SCH (08:47)
[2018-06-04] MEDS: PANTOPRAZOLE 40 MG/10 ML VIAL IV SCH ×2 (08:47→22:07)
--- NOTE | 2018-06-04 08:53 | P.PN ---
Subjective Progress Note Date: 06/04/18 Principal diagnosis: dark stools Patient is an 78-year-old male with a history of chronic kidney disease stage III B, congestive heart failure with EF 30-35%, diabetes mellitus with peripheral neuropathy, and mitral and aortic mechanical valve who presented to the ER with complaints of dark stools. In the ER she underwent an extensive evaluation. Her initial vital signs were within normal limits. Her hemoglobin had dropped 1 g in approximately 10 days. She was found to have acute kidney injury with an elevated creatinine at 4 up from 1.7 at discharge. Her potassium was found to be 7.2. She was started on IV fluids, temporizing measures for her potassium, and Kayexalate. She was also started on an IV PPI for possible GI bleed. She was admitted to the selective care unit. On the morning of 06/04 her hemoglobin was 7.1 and her potassium had improved to 5.2. Patient seen and examined at bedside. She reports that she had dark stools before coming in but after the Kayexalate her stools were brown and she had several. They have since stopped. She has been taking her diuretics after being discharged from the hospital. She reports she has not missed any doses or changed any of her medications since discharge. She reports decreased appetite due to not being able to eat things as they have too much salt and her recently passing. She denies any edema. No chest pain or shortness of breath. Objective - Vital Signs Vital signs: Vital Signs Temp 96.9 F L 06/04/18 03:00 Pulse 60 06/04/18 03:00 Resp 18 06/04/18 03:00 BP 134/58 06/04/18 03:00 Pulse Ox 98 06/04/18 03:00 Intake & Output 06/03/18 06/04/18 06/04/18 18:59 06:59 18:59 Intake Total 500 0 Balance 500 0 Weight 68 kg 69.8 kg Intake: Amount of Fluid Infused ( 500 ml) Oral 0 Other: # Voids 1 - Exam General: non toxic, no distress, appears at stated age Derm: warm, dry Head: atraumatic, normocephalic, symmetric Eyes: EOMI, no lid lag, anicteric sclera Mouth: no lip lesion, mucus membranes dry Cardiovascular: S1S2 reg, no murmur, positive posterior tibial pulse bilateral, Lungs: Decreased breath sounds bilateral bases, no rhonchi, no rales , no accessory muscle use Abdominal: soft, tender to palpation suprapubic, no guarding, no appreciable organomegaly Ext: no gross muscle atrophy, no edema, no contractures Neuro: CN II-XI grossly intact, no focal neuro deficits Psych: Alert, oriented, appropriate affect - Labs CBC & Chem 7: 06/04/18 03:16 06/04/18 03:16 Labs: Abnormal Lab Results - Last 24 Hours (Table) 06/03/18 06/03/18 06/03/18 Range/Units 12:15 12:15 12:15 RBC 3.06 L (3.80-5.40) m/uL Hgb 7.9 L (11.4-16.0) gm/dL Hct 24.6 L (34.0-46.0) % MCHC (31.0-37.0) g/dL RDW 19.0 H (11.5-15.5) % Lymphocytes # (1.0-4.8) k/uL PT 21.8 H (9.0-12.0) sec INR 2.4 H (<1.2) APTT 30.6 H (22.0-30.0) sec Sodium 133 L (137-145) mmol/L Potassium 7.2 H* (3.5-5.1) mmol/L Carbon Dioxide 19 L (22-30) mmol/L BUN 91 H* (7-17) mg/dL Creatinine 4.08 H (0.52-1.04) mg/dL Phosphorus (2.5-4.5) mg/dL Magnesium (1.6-2.3) mg/dL Stool Occult Blood (Negative) 06/03/18 06/03/18 06/03/18 Range/Units 12:40 16:51 22:55 RBC 3.28 L (3.80-5.40) m/uL Hgb 8.3 L (11.4-16.0) gm/dL Hct 27.1 L (34.0-46.0) % MCHC 30.6 L (31.0-37.0) g/dL RDW 19.0 H (11.5-15.5) % Lymphocytes # (1.0-4.8) k/uL PT (9.0-12.0) sec INR (<1.2) APTT (22.0-30.0) sec Sodium (137-145) mmol/L Potassium 6.0 H (3.5-5.1) mmol/L Carbon Dioxide 20 L (22-30) mmol/L BUN 86 H* (7-17) mg/dL Creatinine 3.70 H (0.52-1.04) mg/dL Phosphorus 7.9 H (2.5-4.5) mg/dL Magnesium 2.5 H (1.6-2.3) mg/dL Stool Occult Blood Positive H (Negative) 06/04/18 06/04/18 06/04/18 Range/Units 03:16 03:16 03:16 RBC 2.78 L (3.80-5.40) m/uL Hgb 7.1 L (11.4-16.0) gm/dL Hct 22.6 L (34.0-46.0) % MCHC (31.0-37.0) g/dL RDW 18.8 H (11.5-15.5) % Lymphocytes # 0.9 L (1.0-4.8) k/uL PT 20.4 H (9.0-12.0) sec INR 2.3 H (<1.2) APTT (22.0-30.0) sec Sodium 136 L (137-145) mmol/L Potassium 5.2 H (3.5-5.1) mmol/L Carbon Dioxide (22-30) mmol/L BUN 79 H (7-17) mg/dL Creatinine 3.10 H (0.52-1.04) mg/dL Phosphorus 7.2 H (2.5-4.5) mg/dL Magnesium (1.6-2.3) mg/dL Stool Occult Blood (Negative) Assessment and Plan Assessment: Acute kidney injury on chronic kidney disease stage IIIB with hyperkalemia and anion gap metabolic acidosis -Continue to hold patient's Lasix, Aldactone, Zaroxolyn, and Cozaar -IV fluids -Consult nephrology -Avoid additional nephrotoxic agents -Repeat renal profile in a.m. -Continue on telemetry Possible GI bleed -Patient was on iron therapy but reports dark stools -Hemoglobin has dropped 1 g in 10 days -Continue with IV PPI twice a day -Consult nephrology -Continue with clear liquid diet -With slow GI losses if any will continue with Coumadin therapy secondary to mechanical valve Compensated systolic and diastolic congestive heart failure with ejection fraction 35-40% -ROMEO inhibitor and diuretics on hold secondary to ATN with hyperkalemia -Continue with beta alie -Careful fluid hydration -Monitor fluid status closely Acute on chronic anemia likely component of anemia of chronic kidney disease with possible GI losses -Follow CBCs -Resume iron once cleared by GI Subtherapeutic Coumadin coagulopathy -We will continue with Coumadin replacement therapy as patient has both a mechanical mitral and aortic valve -Pharmacy to dose Coumadin Diabetes mellitus type 2 with peripheral neuropathy -SSI - follow BS - check A1C - hold home insulin regmiet with clear liquid diet, but add levemir at 10 which is one half her dose of long acting insulin DVT prophylaxis: On Coumadin Discussed with: Patient, nursing, nephro Anticipated discharge: 1-[address]: home with home health A total of 35 minutes was spent on the care of this complex patient more than 50 % of the time was spent in counseling and care coordination.
[2018-06-04] MEDS ORDERED: cloNIDine HCL 0.2 MG TAB PO SCH (09:00)
[2018-06-04] MEDS ORDERED: PANTOPRAZOLE 40 MG/10 ML VIAL IV SCH (09:00)
[2018-06-04] MEDS: CHOLECALCIFEROL 1,000 UNIT TAB PO SCH (11:46)
[2018-06-04 11:48] LABS: Glucose,Whole Blood 83 mg/dL (75-99)
[2018-06-04 12:39] LABS: Anisocytosis Slight; HCT 23.5 % (34.0-46.0); HGB 7.4 gm/dL (11.4-16.0); Hypochromasia Slight; MCH 25.6 pg (25.0-35.0); MCHC 31.4 g/dL (31.0-37.0); MCV 81.6 fL (80.0-100.0); Mean Platelet Volume 6.9; Microcytosis Slight; Platelet Count 242 k/uL (150-450); RBC 2.88 m/uL (3.80-5.40); RDW 18.6 % (11.5-15.5); WBC 5.7 k/uL (3.8-10.6)
--- NOTE | 2018-06-04 13:24 | CONS ---
CONSULTATION REQUESTING PHYSICIAN: Dr. Home Garza. REASON FOR CONSULTATION: Severe anemia and intermittent black tarry stools. HISTORY OF PRESENT ILLNESS: The patient is a 78-year-old pleasant white female with history of congestive heart failure, mechanical valve replacement on Coumadin was admitted to the hospital with fatigue, weakness, intermittent black stools for the last several months duration. The patient said that approximately 4 to 5 months ago she was started on iron supplementation and since then her stool has been black. She quit taking that for about a week and her stool was still black and tarry. She got concerned. She became somewhat dizzy, came to the emergency room and was noted to have a hemoglobin of 8 and this morning dropped to 7.1 g/dL. Since being in the hospital, she did not have any further black tarry stools. She reports no abdominal pain. No nausea, vomiting. No recent NSAID use. No prior history of peptic ulcer disease. She is on Coumadin for aortic valve replacement. She recalls having EGD colonoscopy many years ago. PAST MEDICAL HISTORY: Significant for diabetes mellitus, hypertension, hyperlipidemia, chronic renal insufficiency stage III, history of rheumatic fever. PAST SURGICAL HISTORY: Appendectomy, aortic valve replacement, hysterectomy, pacemaker implantation, bilateral cataract surgery. MEDICATIONS: At home include Tenormin, NovoLog, Catapres, Cozaar, , Zocor, vitamin, Coumadin, Lasix, Aldactone. ALLERGIES: To IODINE, IV DYE. FAMILY HISTORY: Brother had congestive heart failure. Father had committed suicide in his 50s. REVIEW OF SYSTEMS: CARDIOPULMONARY; No chest pain or shortness of breath. GENITOURINARY: No dysuria or hematuria. MUSCULOSKELETAL: Unremarkable. SKIN: unremarkable. ENDOCRINE: Unremarkable PSYCHIATRIC: Unremarkable. NEUROLOGIC: Unremarkable. ENT/VISION: Unremarkable. CONSTITUTIONAL: No recent weight loss. No fever, chills or night sweats. PHYSICAL EXAMINATION: She appears comfortable. No apparent distress. VITAL SIGNS: Stable. Blood pressure is 146/64, pulse is 97, and afebrile. HEENT: Examination unremarkable. Conjunctivae pink. Sclerae anicteric. Oral cavity, no lesions. NECK: No JVD. No lymph node enlargement. CHEST: Clear to auscultation. HEART: Regular rate and rhythm. ABDOMEN: Soft. Bowel sounds are positive. No organomegaly. EXTREMITIES: No pedal edema. SKIN: No rashes. NEUROLOGIC: Alert and oriented x3. No focal deficits. LAB: Done at the time of admission to the hospital: Hemoglobin 8.3, this morning is 7.1, MCV 81, platelets are normal. PT 20.4, INR 2.3. BUN is 86, creatinine 3.7. IMPRESSION: 1. This is a lady who presents to the hospital with black stools for the last several months duration. She has been on iron supplements and thinks her stool has been dark in color since then; however, lately has been becoming more dizzy and lightheaded and hemoglobin is down to 7.1 g/dL. She has history of atrial fibrillation and aortic valve replacement, hence on Coumadin for several years. Last EGD and colonoscopy was many years ago. 2. History of aortic valve replacement on Coumadin. 3. Chronic kidney disease, stage IV. RECOMMENDATION: I had discussion the patient regarding workup for anemia and I recommended an EGD and colonoscopy during this hospitalization. The patient was to talk to her daughter and make decision later today. In the meantime, she will continue her current medications. We will repeat hemoglobin in the morning and follow her closely. Thank you for this consultation. MMODL / IJN: [id number] /
[2018-06-04 15:19] LABS: Appearance,Urine Clear (Clear); Bacteria,Urine Rare /hpf; Bilirubin,Urine Negative (Negative); Blood,Urine Negative (Negative); Color,Urine Light Yellow; Glucose,Urine (UA) Negative (Negative); Hyaline Casts,Urine 5 /lpf (0-2); Ketones,Urine Negative (Negative); Leukocyte Esterase,Urine Small (Negative); Nitrite,Urine Negative (Negative); Protein,Urine Negative (Negative); Specific Gravity,Urine 1.009 (1.001-1.035); Squamous Epithelial Cell,Urine <1 /hpf (0-4); Urobilinogen,Urine <2.0 mg/dL (<2.0)
[2018-06-04 17:00] LABS: Glucose,Whole Blood 145 mg/dL (75-99)
--- NOTE | 2018-06-04 17:06 | CONS ---
CONSULTATION REASON FOR CONSULT: Renal failure, hyperkalemia. HISTORY OF PRESENT ILLNESS: The patient is an 78-year-old female with history of chronic kidney disease with serum creatinine of about 1.6-1.7 most of April of this year. The etiology is nephrosclerosis. The patient was admitted to the hospital with increased weakness. As outpatient lab called me saying the potassium was elevated at 7.2 yesterday. The patient was advised to go to the hospital. However, she states that her phone has not been working, so she had come in by herself as she was not feeling well. There is no history of use of NSAIDs. Serum creatinine was also elevated at 4.1 at time of admission. Patient admitted to having had diarrhea for about 2 days prior to admission. She also had decreased oral intake and decreased urine output. This seems to have improved now. Currently, patient is maintained on IV fluids. Her creatinine is down to 3.1 and potassium is 5.2 today. Hemoglobin is noted to be low at 7.1 g/dL early this morning. Stool for occult blood is positive. Patient was on Cozaar and Coumadin at home. PAST MEDICAL HISTORY: Hypertension. Acute kidney injury during last admission last month, which was mainly cardiorenal. Her previous creatinine has been about 1 and it had gone up to 1.6-1.7 on last admission. Cardiomyopathy, systolic heart failure, ejection fraction 35-40%, history of left foot osteomyelitis, anemia with previous iron deficiency, history of atrial fibrillation maintained on anticoagulation, type 2 diabetes, history of neuropathy, rheumatic fever. PAST SURGICAL HISTORY: Appendectomy, hysterectomy, pacemaker placement, mitral and aortic valve replacement with a mechanical valve, colonoscopies, debridement of bilateral foot ulcers, cataract surgery. SOCIAL HISTORY: Negative for smoking, drug abuse or alcohol abuse. MEDICATIONS: Medications at home prior to admission included Tenormin, insulin, Cozaar, clonidine, Zaroxolyn, Zocor, vitamin D3, Aldactone, Lasix, Coumadin. ALLERGIES: Include: IV CONTRAST. EXAMINATION: Patient is currently comfortable, awake. She is not in any acute distress. Blood pressure was 96/53 this morning. Heart rate 60 per minute. She is afebrile. Examination of the heart: S1, S2. Examination lungs: Bilateral breath sounds are heard. Abdomen is soft, nontender. Examination lower extremities shows no evidence of edema. 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 LABS: Show hemoglobin 7.4, sodium 136, potassium 5.2, chloride 105, BUN 79, serum creatinine 3.1. UA is completely benign with no evidence of proteinuria. Stool for occult blood was positive. ASSESSMENT: 1. Acute kidney injury, prerenal, associated with volume depletion, hypotension. Renal function is currently improving. Continue to maintain patient on IV fluids. Hold off on all antihypertensive medications. 2. Severe hyperkalemia associated with acute kidney injury. The patient was on angiotensin receptor blockers which are currently on hold. Her potassium is down to 5.2. Patient has good urine output. 3. Hypotension associated with hypovolemia. Hold off on the atenolol and clonidine as blood pressure remains low. 4. Dyslipidemia. 5. History of cardiomyopathy, ejection fraction 35-40%. 6. Atrial fibrillation maintained on anticoagulation. 7. GI bleed. Stool for occult blood is positive. Gastroenterology has been consulted. 8. Osteomyelitis of left second toe, status post vancomycin. 9. Congestive heart failure, acute on top of chronic on last admission, mainly systolic currently. No evidence of heart failure. PLAN: Continue IV fluids. Hold off on Tenormin and clonidine as blood pressure is low. Monitor hemoglobin for need for packed RBC transfusion. Repeat labs in a.m. Thank you for this consultation. Continue to follow the patient with you during her hospitalization. MMODL / IJN: [id number] /
[2018-06-04 20:54] LABS: Glucose,Whole Blood 145 mg/dL (75-99)
[2018-06-04] MEDS: ATORVASTATIN 20 MG TAB PO SCH (22:06)
[2018-06-04] MEDS: ATENOLOL 25 MG TAB PO SCH (22:06)
[2018-06-04] MEDS: INSULIN DETEMIR 100 UNIT/ML 10 ML VIAL SQ SCH (22:26)
[2018-06-05 06:00] LABS: Glucose,Whole Blood 91 mg/dL (75-99)
[2018-06-05] MEDS: INSULIN ASPART 100 UNIT/ML 1 ML 10 ML VIAL SQ SCH ×4 (06:16→21:09)
[2018-06-05] MEDS: SODIUM CHLORIDE 0.9% 1,000 ML IV SCH (06:16)
[2018-06-05 07:12] LABS: Anisocytosis Slight; HCT 21.5 % (34.0-46.0); Hypochromasia Slight; MCH 25.7 pg (25.0-35.0); MCHC 31.4 g/dL (31.0-37.0); MCV 81.8 fL (80.0-100.0); Microcytosis Slight; Platelet Count 197 k/uL (150-450); RBC 2.63 m/uL (3.80-5.40); WBC 3.9 k/uL (3.8-10.6)
[2018-06-05 07:17] LABS: Albumin 3.3 g/dL (3.5-5.0); Calcium 8.8 mg/dL (8.4-10.2); Magnesium 1.9 mg/dL (1.6-2.3); Phosphorus 4.4 mg/dL (2.5-4.5); Potassium 5.2 mmol/L (3.5-5.1); Total Bilirubin 0.9 mg/dL (0.2-1.3); Total Protein 6.1 g/dL (6.3-8.2)
[2018-06-05 07:20] LABS: HGB 6.8 gm/dL (11.4-16.0)
[2018-06-05] MEDS: SODIUM CHLORIDE 0.45% 1,000 ML IV SCH (08:18)
[2018-06-05] MEDS: PANTOPRAZOLE 40 MG/10 ML VIAL IV SCH ×2 (08:20→21:09)
[2018-06-05] MEDS: ATENOLOL 25 MG TAB PO SCH ×2 (08:20→21:09)
[2018-06-05] MEDS: CHOLECALCIFEROL 1,000 UNIT TAB PO SCH (08:21)
--- NOTE | 2018-06-05 10:25 | P.PN ---
Subjective Progress Note Date: 06/05/18 Principal diagnosis: GI bleeding. Patient did not have any bowel movements since she came in. No nausea or vomiting. No abdominal pain. Objective - Vital Signs Vital signs: Vital Signs Temp 97.0 F L 06/05/18 03:10 Pulse 60 06/05/18 03:10 Resp 18 06/05/18 03:10 BP 111/51 06/05/18 03:10 Pulse Ox 99 06/05/18 03:10 Intake & Output 06/04/18 06/05/18 06/05/18 18:59 06:59 18:59 Intake Total 1040 240 Output Total 800 Balance 1040 -560 Weight 69.8 kg 70.6 kg Intake: Oral 1040 240 Output: Urine 800 - Exam Constitutional: No acute distress, conversant, pleasant Eyes:Anicteric sclerae, moist conjunctiva, no lid-lag, PERRLA, ENMT: Oropharynx clear, no erythema, exudates Neck: Supple, FROM, no masses, or JVD, No carotid bruits, No thyromegaly Lungs: Clear to auscultation, Clear to percussion, Normal respiratory effort, no accessory muscle use Cardiovascular: Heart regular in rate and rhythm, No murmurs, gallops, or rubs, No peripheral edema Abdominal: Soft, Nontender, no guarding, rebound or rigidity, Normoactive bowel sounds, No hepatomegaly, No splenomegaly, No palpable mass Skin: Normal temperature, tone, texture, turgor, no induration, No subcutaneous nodules, No rash, lesions, No ulcers Extremities: No digital cyanosis, No clubbing, Pedal pulses intact and symmetrical, Radial pulses intact and symmetrical, No calf tenderness Neuro: Muscles Strength 5/5 in all 4 extremities, Sensation to light touch grossly present throughout, Cranial nerves II-XII grossly intact, no focal sensory deficits - Labs CBC & Chem 7: 06/05/18 06:13 06/05/18 06:13 Labs: Abnormal Lab Results - Last 24 Hours (Table) 06/04/18 06/04/18 06/04/18 Range/Units 12:10 15:05 16:49 RBC 2.88 L (3.80-5.40) m/uL Hgb 7.4 L (11.4-16.0) gm/dL Hct 23.5 L (34.0-46.0) % RDW 18.6 H (11.5-15.5) % Potassium (3.5-5.1) mmol/L Chloride (98-107) mmol/L BUN (7-17) mg/dL Creatinine (0.52-1.04) mg/dL POC Glucose (mg/dL) 145 H (75-99) mg/dL Total Protein (6.3-8.2) g/dL Albumin (3.5-5.0) g/dL Ur Leukocyte Esterase Small H (Negative) Urine Bacteria Rare H (None) /hpf Hyaline Casts 5 H (0-2) /lpf Crossmatch 06/04/18 06/05/18 06/05/18 Range/Units 20:51 06:13 06:13 RBC 2.63 L (3.80-5.40) m/uL Hgb 6.8 L* (11.4-16.0) gm/dL Hct 21.5 L (34.0-46.0) % RDW 19.0 H (11.5-15.5) % Potassium 5.2 H (3.5-5.1) mmol/L Chloride 110 H (98-107) mmol/L BUN 51 H (7-17) mg/dL Creatinine 2.32 H (0.52-1.04) mg/dL POC Glucose (mg/dL) 145 H (75-99) mg/dL Total Protein 6.1 L (6.3-8.2) g/dL Albumin 3.3 L (3.5-5.0) g/dL Ur Leukocyte Esterase (Negative) Urine Bacteria (None) /hpf Hyaline Casts (0-2) /lpf Crossmatch 06/05/18 Range/Units 07:46 RBC (3.80-5.40) m/uL Hgb (11.4-16.0) gm/dL Hct (34.0-46.0) % RDW (11.5-15.5) % Potassium (3.5-5.1) mmol/L Chloride (98-107) mmol/L BUN (7-17) mg/dL Creatinine (0.52-1.04) mg/dL POC Glucose (mg/dL) (75-99) mg/dL Total Protein (6.3-8.2) g/dL Albumin (3.5-5.0) g/dL Ur Leukocyte Esterase (Negative) Urine Bacteria (None) /hpf Hyaline Casts (0-2) /lpf Crossmatch See Detail Assessment and Plan Plan: GI bleeding/acute blood loss anemia Continue protonix twice a day Transfuse 1 unit of packed red blood cells Follow CBC in a.m. GI recommend doing upper and lower endoscopies, patient will consent Acute on chronic renal failure stage III/hyperkalemia Renal function improving Continue gentle IV fluid hydration Holding losartan and diuretics Hyperkalemia resolved Nephrology is following Status post aortic and mitral mechanical valve replacements Continue Coumadin, INR therapeutic, follow in a.m. DM type II, neuropathy bilateral feet, Blood sugar is borderline, patient will only be on clear liquid diet, hold home insulin regimen and start sliding scale insulin with blood sugar checks every before meals and at bedtime Hypertension, essential Continue clonidine and atenolol, hold LOSARTAN Stable DVT prophylaxis Already on Coumadin SCDs
--- NOTE | 2018-06-05 12:07 | PN ---
PROGRESS NOTE DATE OF SERVICE: June 05, 2018 Patient is an 78-year-old pleasant white female admitted to hospital with severe symptomatic anemia, hemoglobin of 6.5 g/dL, and she is going to receive blood transfusion today. She denies any active bleeding other than having intermittent dark- colored stools for the last several months duration. She has history of aortic valve replacement as well as mitral valve replacement and on Coumadin, also has history of atrial fibrillation. INR yesterday was 2.3. She denies any symptoms today. PHYSICAL EXAMINATION: Appears comfortable. No apparent distress. Vital signs stable. Blood pressure is 111/51, pulse rate 60, temperature 97. HEENT examination unremarkable. Conjunctivae pink. Sclerae anicteric. Oral cavity no lesions. Neck no jugular venous distention or lymph node enlargement. Chest was clear to auscultation. HEART: Regular rate and rhythm. ABDOMEN: Soft. Bowel sounds are positive. No organomegaly. Extremities: No pedal edema. Skin no rashes. NEUROLOGIC: Alert and oriented x3. No focal deficits. LABS: From today, WBC 3.9, hemoglobin 6.8, platelets are 197. Basic metabolic panel is within normal limits. BUN is 51, creatinine 2.3. IMPRESSION: 1. Severe symptomatic anemia and Hemoccult-positive stool. She had black tarry stools for the last few days duration. Clinically no active bleeding. She is currently receiving 1 unit of blood transfusion. 2. History of aortic valve replacement, mitral valve replacement with mechanical valve on Coumadin, history of atrial fibrillation. INR yesterday 2.3. Repeat INR from today is pending. RECOMMENDATIONS: I had a lengthy discussion with the patient regarding workup of anemia. She is agreeable to proceed with endoscopic intervention with EGD and colonoscopy. At this time, because of the mechanical aortic valve, we will switch her anticoagulation from Coumadin to IV heparin and once INR is less than 1.7, we will proceed with an EGD and colonoscopy which may take 2 days. The plan was discussed with the patient as well as with Dr. Hayes and Dr. Winn. Thank you for this consultation. MMODL / IJN: [id number] /
[2018-06-05 12:16] LABS: Glucose,Whole Blood 100 mg/dL (75-99)
[2018-06-05 15:55] LABS: INR 4.3 (<1.2)
[2018-06-05 16:35] LABS: Anisocytosis Slight; HCT 25.7 % (34.0-46.0); Hypochromasia Slight; MCH 26.9 pg (25.0-35.0); MCHC 32.6 g/dL (31.0-37.0); MCV 82.3 fL (80.0-100.0); Mean Platelet Volume 7.3; Microcytosis Slight; Platelet Count 180 k/uL (150-450); RBC 3.13 m/uL (3.80-5.40); RDW 18.5 % (11.5-15.5); WBC 4.7 k/uL (3.8-10.6)
[2018-06-05 16:37] LABS: HGB 8.4 gm/dL (11.4-16.0)
[2018-06-05 16:44] LABS: Glucose,Whole Blood 106 mg/dL (75-99)
[2018-06-05 20:56] LABS: Glucose,Whole Blood 119 mg/dL (75-99)
[2018-06-05] MEDS: ATORVASTATIN 20 MG TAB PO SCH (21:09)
[2018-06-05] MEDS: INSULIN DETEMIR 100 UNIT/ML 10 ML VIAL SQ SCH (21:09)
--- NOTE | 2018-06-06 05:22 | PN ---
PROGRESS NOTE The patient is seen for followup for acute kidney injury on top of chronic kidney disease. She was admitted to the hospital with hypotension, severe hyperkalemia and acute on top of chronic kidney disease. The patient had been having diarrhea prior to admission. She has been maintained on IV fluids. Renal function is improved. The patient's hemoglobin was also quite low at 6.8 g/dL today. Stool for occult blood is positive and she is being seen by GI. PHYSICAL EXAMINATION: On examination this morning, blood pressure was 114/60, heart rate 60 per minute. Patient is afebrile. EXAMINATION OF THE HEART: S1, S2. EXAMINATION OF THE LUNGS: Bilateral breath sounds are heard. Abdomen is soft, nontender. Examination of the lower extremities shows no significant edema. SERVICES ENGINEER exam is grossly intact. LABS: Labs show sodium 139, potassium 5.2, chloride 110, BUN 51, serum creatinine 2.32. INR 4.3. ASSESSMENT: 1. Acute kidney injury associated with hypovolemia, hypotension and anemia, currently maintained on IV fluids with improvement in renal function. Continue to hold off on antihypertensive medications. 2. Severe hyperkalemia associated with acute kidney injury. The patient was on angiotensin receptor blockers, which are currently on hold. Potassium has improved. 3. Dyslipidemia. 4. Anemia with positive stool for occult blood being followed by GI. There is no active bleeding noted. 5. Chronic kidney disease, NKF stage IIIB with baseline creatinine about 1.6 secondary to nephrosclerosis. 6. Atrial fibrillation with controlled ventricular response, maintained on anticoagulation. 7. Cardiomyopathy, ejection fraction 35% to 40%. 8. Osteomyelitis of left second toe, status post vancomycin. PLAN: Today continue IV fluids. Transfuse packed RBCs. Repeat labs in a.m. MMODL / IJN: [id number] /
[2018-06-06 06:05] LABS: Glucose,Whole Blood 93 mg/dL (75-99)
[2018-06-06] MEDS: INSULIN ASPART 100 UNIT/ML 1 ML 10 ML VIAL SQ SCH ×4 (06:07→21:28)
[2018-06-06] MEDS: SODIUM CHLORIDE 0.45% 1,000 ML IV SCH (06:51)
[2018-06-06 06:57] LABS: Calcium 9.3 mg/dL (8.4-10.2); Magnesium 1.7 mg/dL (1.6-2.3); Phosphorus 3.5 mg/dL (2.5-4.5); Prothrombin Time 48.7 sec (9.0-12.0)
[2018-06-06 07:11] LABS: Anisocytosis Slight; Basophils % (A) 1 %; Eosinophils # (A) 0.2 k/uL (0-0.7); Eosinophils % (A) 2 %; HCT 28.1 % (34.0-46.0); HGB 8.7 gm/dL (11.4-16.0); Hypochromasia Slight; Lymphocytes # (A) 1.1 k/uL (1.0-4.8); Lymphocytes % (A) 17 %; MCH 25.7 pg (25.0-35.0); MCV 82.8 fL (80.0-100.0); Mean Platelet Volume 6.7; Microcytosis Slight; Monocytes # (A) 0.6 k/uL (0-1.0); Monocytes % (A) 9 %; Neutrophils # (A) 4.8 k/uL (1.3-7.7); Neutrophils % (A) 70 %; Platelet Count 219 k/uL (150-450); Poikilocytosis Slight; RDW 18.5 % (11.5-15.5); WBC 6.9 k/uL (3.8-10.6)
[2018-06-06 07:36] LABS: INR 5.4 (<1.2)
[2018-06-06] MEDS ORDERED: PHYTONADIONE ORAL 5 MG/5 ML ORAL.SYRG PO STA (07:41)
--- NOTE | 2018-06-06 08:37 | P.PN ---
Subjective Patient is seen in follow-up for acute kidney injury on chronic kidney disease. Patient has chronic kidney disease stage III with creatinine in the range of 1.1-1.7 in April 2018. Creatinine was up to 4.08 on admission and is down to 1.76 today. Currently admits to abdominal discomfort. Denies any melena or hematochezia. No diarrhea. She is tolerating clear liquid diet. Scheduled for endoscopy tomorrow. Admits to good urine output. Vital signs are stable. General: The patient appeared well nourished and normally developed. HEENT: Head exam is unremarkable. Neck is without jugular venous distension. LUNGS: Lungs are clear to auscultation and percussion. Breath sounds decreased. HEART: Rate and Rhythm are regular. First and second heart sounds normal. No murmurs, rubs or gallops. ABDOMEN: Abdominal exam reveals normal bowel sounds. Non-tender and non- distended. No evidence of peritonitis. EXTREMITITES: No clubbing, cyanosis, or edema. Objective - Vital Signs Vital signs: Vital Signs Temp 97.0 F L 06/06/18 04:00 Pulse 61 06/06/18 04:00 Resp 18 06/06/18 04:00 BP 151/74 06/06/18 04:00 Pulse Ox 98 06/06/18 04:00 Intake & Output 06/05/18 06/06/18 06/06/18 18:59 06:59 18:59 Intake Total 930 400 Output Total 2252 Balance -1322 400 Weight 71 kg Intake: Intake, IV Titration 400 Amount Sodium Chloride 0.45% 1, 400 000 ml @ 50 mls/hr IV . Q20H [facility] Rx#:[id number] Oral 620 Blood Product 310 Rc As-3 Unit 310 [id number] Output: Urine 2250 Stool 2 Other: Voiding Method Toilet # Voids 2 2 - Labs CBC & Chem 7: 06/06/18 05:51 06/06/18 05:51 Labs: Abnormal Lab Results - Last 24 Hours (Table) 06/05/18 06/05/18 06/05/18 Range/Units 07:46 11:46 15:08 RBC (3.80-5.40) m/uL Hgb (11.4-16.0) gm/dL Hct (34.0-46.0) % RDW (11.5-15.5) % PT 39.0 H (9.0-12.0) sec INR 4.3 H (<1.2) Chloride (98-107) mmol/L BUN (7-17) mg/dL Creatinine (0.52-1.04) mg/dL POC Glucose (mg/dL) 100 H (75-99) mg/dL Crossmatch See Detail 06/05/18 06/05/18 06/05/18 Range/Units 16:20 16:25 20:48 RBC 3.13 L (3.80-5.40) m/uL Hgb 8.4 L D (11.4-16.0) gm/dL Hct 25.7 L (34.0-46.0) % RDW 18.5 H (11.5-15.5) % PT (9.0-12.0) sec INR (<1.2) Chloride (98-107) mmol/L BUN (7-17) mg/dL Creatinine (0.52-1.04) mg/dL POC Glucose (mg/dL) 106 H 119 H (75-99) mg/dL Crossmatch 06/06/18 06/06/18 06/06/18 Range/Units 05:51 05:51 05:51 RBC 3.40 L (3.80-5.40) m/uL Hgb 8.7 L (11.4-16.0) gm/dL Hct 28.1 L (34.0-46.0) % RDW 18.5 H (11.5-15.5) % PT 48.7 H (9.0-12.0) sec INR 5.4 H* (<1.2) Chloride 109 H (98-107) mmol/L BUN 34 H (7-17) mg/dL Creatinine 1.76 H (0.52-1.04) mg/dL POC Glucose (mg/dL) (75-99) mg/dL Crossmatch Assessment and Plan Plan: Assessment: 1. Nonoliguric acute kidney injury mostly prerenal improving with IV hydration. Creatinine was over 4 on admission and is down to 1.76 today. Urinalysis is quite benign. 2. Chronic kidney disease stage III with baseline creatinine in the range of 1.1-1.7 in April 2018. 3. Hyperkalemia on admission. Improved with medical management. 4. Severe symptomatic anemia status post blood transfusion this admission. Concern for GI bleed. Scheduled for endoscopy tomorrow. 5. Systolic CHF with ejection fraction of 35-40%. Currently compensated. 6. Insulin-dependent diabetes mellitus. 7. History of atrial fibrillation. 8. Hypertension with chronic kidney disease. Plan: Continue half-normal saline at 50 mL an hour. Add Aranesp. Check iron studies. Avoid nephrotoxins. Continue to hold Cozaar and Aldactone for now. Repeat electrolytes in the morning.
[2018-06-06] MEDS: ATENOLOL 25 MG TAB PO SCH ×2 (08:59→21:18)
[2018-06-06] MEDS: CHOLECALCIFEROL 1,000 UNIT TAB PO SCH (08:59)
[2018-06-06] MEDS: PANTOPRAZOLE 40 MG/10 ML VIAL IV SCH ×2 (08:59→21:19)
--- NOTE | 2018-06-06 11:15 | P.PN ---
Subjective Progress Note Date: 06/06/18 Principal diagnosis: GI bleed Patient is doing fairly well today. She did not have a bowel movement. Her hemoglobin is relatively stable. INR was noted to be elevated at 4.3. She had an episode of symptomatic tachycardia on the monitor earlier and currently she is in paced rhythm. She denies chest pain or shortness of breath. No palpitation. Objective - Vital Signs Vital signs: Vital Signs Temp 97.0 F L 06/06/18 04:00 Pulse 61 06/06/18 04:00 Resp 18 06/06/18 04:00 BP 151/74 06/06/18 04:00 Pulse Ox 98 06/06/18 04:00 Intake & Output 06/05/18 06/06/18 06/06/18 18:59 06:59 18:59 Intake Total 930 400 Output Total 2252 Balance -1322 400 Weight 71 kg Intake: Intake, IV Titration 400 Amount Sodium Chloride 0.45% 1, 400 000 ml @ 50 mls/hr IV . [facility] Rx#:[id number] Oral 620 Blood Product 310 Rc As-3 Unit 310 [id number] Output: Urine 2250 Stool 2 Other: Voiding Method Toilet # Voids 2 2 - Exam General: The patient is awake and alert, in no distress Eye: there is normal conjunctiva bilaterally. Neck: The neck is supple, there is no JVD. Cardiovascular: Normal S1-S2, no S3-S4, no murmurs. Respiratory: Lungs clear to auscultation bilaterally Gastrointestinal: Abdomen is soft, nontender Musculoskeletal: There is no pedal edema. Neurological:. Speech is normal. Skin: Skin is warm and dry - Labs CBC & Chem 7: 06/06/18 05:51 06/06/18 05:51 Labs: Abnormal Lab Results - Last 24 Hours (Table) 06/05/18 06/05/18 06/05/18 Range/Units 07:46 11:46 15:08 RBC (3.80-5.40) m/uL Hgb (11.4-16.0) gm/dL Hct (34.0-46.0) % RDW (11.5-15.5) % PT 39.0 H (9.0-12.0) sec INR 4.3 H (<1.2) Chloride (98-107) mmol/L BUN (7-17) mg/dL Creatinine (0.52-1.04) mg/dL POC Glucose (mg/dL) 100 H (75-99) mg/dL Crossmatch See Detail 06/05/18 06/05/18 06/05/18 Range/Units 16:20 16:25 20:48 RBC 3.13 L (3.80-5.40) m/uL Hgb 8.4 L D (11.4-16.0) gm/dL Hct 25.7 L (34.0-46.0) % RDW 18.5 H (11.5-15.5) % PT (9.0-12.0) sec INR (<1.2) Chloride (98-107) mmol/L BUN (7-17) mg/dL Creatinine (0.52-1.04) mg/dL POC Glucose (mg/dL) 106 H 119 H (75-99) mg/dL Crossmatch 06/06/18 06/06/18 06/06/18 Range/Units 05:51 05:51 05:51 RBC 3.40 L (3.80-5.40) m/uL Hgb 8.7 L (11.4-16.0) gm/dL Hct 28.1 L (34.0-46.0) % RDW 18.5 H (11.5-15.5) % PT 48.7 H (9.0-12.0) sec INR 5.4 H* (<1.2) Chloride 109 H (98-107) mmol/L BUN 34 H (7-17) mg/dL Creatinine 1.76 H (0.52-1.04) mg/dL POC Glucose (mg/dL) (75-99) mg/dL Crossmatch Assessment and Plan Assessment: This is a 78-year-old female with past medical history noted below who presented to the hospital with black tarry stool and was found to have evidence of GI bleed. She was found to have a hemoglobin of 6.8. She received 1 unit of packed RBC during this admission. She was seen and evaluated by GI and plan for upper and lower endoscopy when INR is below 1.7. GI bleeding/acute blood loss anemia Continue protonix twice a day Transfused 1 unit of packed red blood cells Follow CBC daily GI recommend doing upper and lower endoscopies, awaiting INR to be below 1.7 Acute on chronic renal failure stage III/hyperkalemia Renal function improving Continue gentle IV fluid hydration Holding losartan and diuretics Hyperkalemia resolved Nephrology is following, appreciate recommendation Status post aortic and mitral mechanical valve replacements Continue Coumadin, INR therapeutic, follow in a.m. DM type II, neuropathy bilateral feet, Blood sugar is borderline, patient will only be on clear liquid diet, hold home insulin regimen and start sliding scale insulin with blood sugar checks every before meals and at bedtime Hypertension, essential Continue clonidine and atenolol, hold LOSARTAN Stable DVT prophylaxis Already on Coumadin SCDs Plan for today: -Vitamin K 2.5 mg orally 1 time dose -Continue to hold Coumadin for now -Repeat CBC in the morning -Awaiting INR to be around 1.7 for GI to perform upper and lower endoscopy
--- NOTE | 2018-06-06 11:26 | CONS ---
CONSULTATION ATTENDING: Dr. Garza Mrs. Costa is an 78-year-old female with a known history of rheumatic heart disease, status post aortic and mitral valve replacement performed in 1994, history of chronic persistent atrial fibrillation, permanent pacemaker implantation, history of severe pulmonary hypertension with a moderate LV systolic dysfunction, who presented with dark stool. She had history of anemia and has been on iron, but she has stopped the iron for about a week and her stool remains black and because of that came into the emergency room. She denies any change in her breathing pattern. She denies any dizziness or palpitation. She denies any PND, orthopnea, or peripheral edema. Her activity level is limited, but has not changed. MEDICATIONS: Her medications at home included insulin, Lasix 40 mg twice a day, Catapres 0.2 mg daily, Coumadin, Aldactone 50 mg daily, simvastatin 40 mg daily, metolazone 2.5 mg once a week, losartan 100 mg daily. Iron that was stopped about a week ago and atenolol 50 mg twice a day. REVIEW OF SYSTEMS: RESPIRATORY SYSTEM: She has history of dyspnea on exertion. No recent wheezing or cough. GI SYSTEM: She had anemia, but no clear bleeding. SYSTEM: No dysuria or hematuria. NERVOUS SYSTEM: No history of seizure. PAST SURGICAL HISTORY: Remarkable for the aortic and mitral valve replacement, permanent pacemaker implantation. PAST MEDICAL HISTORY: Past medical history remarkable for the persistent atrial fibrillation, chronic kidney disease, and valvular disease. PHYSICAL EXAMINATION: She is an 78-year-old female, alert, oriented, in no apparent distress. Blood pressure 140/60 with the heart rate in the 60s. HEAD: Normocephalic. EYES: Sclerae anicteric. NECK: Good carotid upstroke, no bruit. LUNGS: Clear to auscultation. HEART: S1, S2 with prosthetic aortic and mitral sound and a systolic murmur. No diastolic murmur. ABDOMEN: Soft, nontender. Positive bowel sounds. No organomegaly. EXTREMITIES: No significant edema. LAB DATA: Her hemoglobin today is 8.7. It was 7.9 on admission. Her BUN and creatinine on admission were 91 and 4.0. Her potassium was 7.2. She had heme-positive in the stool. Her INR on presentation was 2.4 and she is up to 5.4. Her BUN and creatinine 34 and 1.76. Her EKG is consistent with atrial fibrillation with 100% paced rhythm. IMPRESSION: 1. Evidence of gastrointestinal bleeding. Workup in progress. Patient is scheduled to undergo endoscopy. Her Coumadin is on hold. She will need to be bridged with heparin in view of her history of prosthetic aortic and mitral valve replacement and chronic atrial fibrillation. At this time, her INR remains elevated. 2. Status post aortic valvular replacement. 3. Cardiomyopathy. No clear evidence of heart failure at this time. 4. Hypertension. 5. Chronic atrial fibrillation with permanent pacemaker implantation. 6. Chronic kidney disease. RECOMMENDATION: From the cardiac standpoint, her losartan and metolazone are on hold. I will add hydralazine to her regimen. I will follow her renal function and depending on the results of the testing, further recommendation will be made. The patient will need to be bridged with heparin following the procedure as well because of her increased risk of thromboembolic phenomenon. Thank you for this consult. We will follow with you. REUBEN / IRMAN: [id number] /
[2018-06-06 11:51] LABS: Glucose,Whole Blood 108 mg/dL (75-99)
[2018-06-06 11:54] LABS: Hemoglobin A1C 5.3 % (4.0-6.0)
[2018-06-06] MEDS: DARBEPOETIN ALFA 40 MCG/0.4 ML SYRINGE SQ SCH (12:29)
--- NOTE | 2018-06-06 14:25 | CDI ---
Date: 06/06/2018 12:00:00 AM From: Taylor CHURCHILL,RN,CCDS Admit Date: 06/03/2018 1:50:00 PM Patient Name: Fernanda Costa Visit Number: [id number] Discharge Date: ATTENTION: The Clinical Documentation Specialists (CDI) and [facility] Coding Staff appreciate your assistance in clarifying documentation. Please respond to the clarification below the line at the bottom and electronically sign. The CDI & [facility] Coding staff will review the response and follow-up if needed. Please note: Queries are made part of the Legal Health Record. If you have any questions, please contact the author of this message via ITS. Dr. Eugenio Hayes Acute on chronic (to stage 3B) Renal failure is documented in the PNs. Pt presented with weakness and K of 7.2, acidosis. History Risk factors :diarrhea, cardiorenal, nephrosclerosis CKD, DM2 with neuropathy. Chronic Diastolic and systolic CHF,HTN, afib, Mechanical valve replacement on Coumadin presenting with hypotension, GIB and elevated INR, had recent LORI with CR to 1.7 with previous baseline of 1.0 Presenting CR of 4 Clinical Indicators: Nonoliguric LORI mostly prerenal improving with IV hydration , LORI associated with hypovolemia, hypotension and anemia . Renal notes mostly prerenal. PN states ROMEO and Diuretics on hold secondary to ATN with hyperkalemia,-Continue BB. Labs: CR 06/03 4.08 to current 1.76 K 7.2 to 5.0 BP to 96/53 on 06/04, with current 151/74 Patient presents with a BUN/CR and GFR of: Nephrology notes previous Cr of 1.0 with recent LORI to 1.7 Urinalysis: UA shows 5 casts yellow clear, nephrology notes Treatment: held diuretics, IV fluids, hold ROMEO, work up for GIB, NA BICARB, transfusion In your professional opinion, can you please clarify if the condition can be further specified ? Please respond below line. Acute Renal Failure with Acute Tubular Necrosis Acute Renal Failure with Renal Cortical Necrosis Acute Renal Failure with other specified pathological cause, please specify Acute Renal Failure with other cause, please specify Last Revision, October 2017 Unable to determine Other, please specify Please continue to document in your progress notes and discharge summary in order to capture severity of illness and risk of mortality. Include clinical findings that support your diagnosis. unable to determine cause MTDD
[2018-06-06 16:44] LABS: Glucose,Whole Blood 94 mg/dL (75-99)
[2018-06-06] MEDS ORDERED: WARFARIN 2.5 MG TAB PO SCH (18:00)
[2018-06-06 18:14] LABS: Iron Saturation 10.82 (12.00-45.00)
--- NOTE | 2018-06-06 19:59 | PN ---
PROGRESS NOTE REQUESTING PHYSICIAN: Dr. Starkey The patient is an 78-year-old pleasant white female admitted to hospital with severe symptomatic anemia and hemoglobin of 6.8, requiring 2 units of blood transfusion. She has history of aortic valve replacement for which she is on Coumadin, which is currently on hold. INR today is 5.3. The patient denies any symptoms. Feels somewhat constipated. PHYSICAL EXAMINATION: She appears comfortable. No apparent distress. VITAL SIGNS: Stable. Blood pressure is 130/86, pulse rate 82 per minute and afebrile. HEENT: Examination unremarkable. Conjunctivae pink. Sclerae anicteric. Oral cavity, no lesions. NECK: No JVD or lymph node enlargement. Chest was clear to auscultation. HEART: Regular rate and rhythm. Abdomen is . Bowel sounds are positive. No organomegaly. EXTREMITIES: No pedal edema. SKIN: No rashes. NEURO: She is alert, oriented x3. LABS: Hemoglobin 8.7, WBC 6.9, platelets 219, PTT 48.7, INR 5.4. IMPRESSION: 1. Severe symptomatic anemia with intermittent dark-colored stools for the last several months duration. No active bleeding currently. 2. History of mechanical aortic valve/mitral valve replacement on Coumadin, which is currently on hold. INR today is 5.4. RECOMMENDATION: Plan on doing an EGD and colonoscopy during this hospitalization once anticoagulation was reversed and INR is 1.5. The plan was discussed with the patient and she is agreeable to it. Presently, Coumadin is on hold and will repeat INR tomorrow morning. Thank you for this consultation. MMODL / IJN: [id number] /
[2018-06-06 21:05] LABS: Glucose,Whole Blood 177 mg/dL (75-99)
[2018-06-06] MEDS: ATORVASTATIN 20 MG TAB PO SCH (21:18)
[2018-06-06] MEDS: INSULIN DETEMIR 100 UNIT/ML 10 ML VIAL SQ SCH (21:28)
[2018-06-06] MEDS: hydrALAZINE HCL 25 MG TAB PO SCH (21:28)
[2018-06-06] MEDS: MELATONIN 3 MG TABLET PO PRN (23:22)
[2018-06-07 05:51] LABS: Glucose,Whole Blood 85 mg/dL (75-99)
[2018-06-07 06:20] LABS: Anisocytosis Slight; Basophils % (A) 1 %; Eosinophils # (A) 0.1 k/uL (0-0.7); Eosinophils % (A) 2 %; HCT 25.7 % (34.0-46.0); HGB 8.1 gm/dL (11.4-16.0); Hypochromasia Slight; INR 2.7 (<1.2); Lymphocytes # (A) 0.7 k/uL (1.0-4.8); Lymphocytes % (A) 15 %; MCHC 31.5 g/dL (31.0-37.0); MCV 82.6 fL (80.0-100.0); Mean Platelet Volume 7.9; Microcytosis Slight; Monocytes # (A) 0.5 k/uL (0-1.0); Monocytes % (A) 10 %; Neutrophils # (A) 3.4 k/uL (1.3-7.7); Neutrophils % (A) 69 %; Platelet Count 149 k/uL (150-450); Prothrombin Time 23.9 sec (9.0-12.0); RBC 3.11 m/uL (3.80-5.40); RDW 18.4 % (11.5-15.5); WBC 4.9 k/uL (3.8-10.6)
[2018-06-07] MEDS: SODIUM CHLORIDE 0.45% 1,000 ML IV SCH (06:30)
[2018-06-07] MEDS: INSULIN ASPART 100 UNIT/ML 1 ML 10 ML VIAL SQ SCH ×4 (06:30→21:57)
[2018-06-07 06:31] LABS: Calcium 8.6 mg/dL (8.4-10.2); Potassium 3.9 mmol/L (3.5-5.1)
[2018-06-07] MEDS: CHOLECALCIFEROL 1,000 UNIT TAB PO SCH (08:18)
[2018-06-07] MEDS: ATENOLOL 25 MG TAB PO SCH ×2 (08:18→21:53)
[2018-06-07] MEDS: hydrALAZINE HCL 25 MG TAB PO SCH ×2 (08:18→21:53)
[2018-06-07] MEDS: PANTOPRAZOLE 40 MG/10 ML VIAL IV SCH ×2 (08:18→21:53)
--- NOTE | 2018-06-07 10:14 | P.PN ---
Subjective Progress Note Date: 06/07/18 Principal diagnosis: symptomatic anemia Denies melena, hematochezia or hematemesis. Admitted with nothing by mouth status requesting diet advancement. Received vitamin K yesterday INR today improved 2.7. Hemoglobin 8.1. Platelet 149. Objective - Vital Signs Vital signs: Vital Signs Temp 97.7 F 06/07/18 08:20 Pulse 72 06/07/18 08:20 Resp 18 06/07/18 08:20 BP 119/57 06/07/18 08:20 Pulse Ox 96 06/07/18 08:20 Intake & Output 06/06/18 06/07/18 06/07/18 18:59 06:59 18:59 Intake Total 1018 550 Balance 1018 550 Weight 71.6 kg Intake: Intake, IV Titration 550 Amount Sodium Chloride 0.45% 1, 550 000 ml @ 50 mls/hr IV . Q20H [facility] Rx#:[id number] Oral 1018 Other: Voiding Method Toilet Toilet Toilet # Voids 3 1 - Exam General appearance: The patient is alert, oriented, in no acute distress. HET: Head is normocephalic and atraumatic. Pupils are equal and reactive. Oropharynx is clear without lesions. Neck: Supple without lymphadenopathy. Trachea midline. Heart: S1 S2. Regular rate and rhythm. Lungs: No crackles or wheezes are heard. Abdomen: Soft, nontender, nondistended with bowel sounds. No peritoneal signs. No palpable organomegaly or masses. Extremities: Normal skin color and turgor. No cyanosis, rash, ulceration, clubbing, or edema. Radial and pedal pulses are 2/4 bilaterally. Neurological: No focal deficits. Strength and sensation are grossly intact. - Labs CBC & Chem 7: 06/07/18 05:52 06/07/18 05:52 Labs: Abnormal Lab Results - Last 24 Hours (Table) 06/04/18 06/06/18 06/06/18 Range/Units 03:16 11:48 21:02 RBC (3.80-5.40) m/uL Hgb (11.4-16.0) gm/dL Hct (34.0-46.0) % RDW (11.5-15.5) % Plt Count (150-450) k/uL Lymphocytes # (1.0-4.8) k/uL PT (9.0-12.0) sec INR (<1.2) Chloride (98-107) mmol/L BUN (7-17) mg/dL Creatinine (0.52-1.04) mg/dL Glucose (74-99) mg/dL POC Glucose (mg/dL) 108 H 177 H (75-99) mg/dL Iron 42 L (50-170) ug/dL Iron Saturation 10.82 L (12.00-45.00) 06/07/18 06/07/18 06/07/18 Range/Units 05:52 05:52 05:52 RBC 3.11 L (3.80-5.40) m/uL Hgb 8.1 L (11.4-16.0) gm/dL Hct 25.7 L (34.0-46.0) % RDW 18.4 H (11.5-15.5) % Plt Count 149 L (150-450) k/uL Lymphocytes # 0.7 L (1.0-4.8) k/uL PT 23.9 H (9.0-12.0) sec INR 2.7 H (<1.2) Chloride 110 H (98-107) mmol/L BUN 23 H (7-17) mg/dL Creatinine 1.34 H (0.52-1.04) mg/dL Glucose 73 L (74-99) mg/dL POC Glucose (mg/dL) (75-99) mg/dL Iron (50-170) ug/dL Iron Saturation (12.00-45.00) Assessment and Plan (1) Symptomatic anemia Narrative/Plan: Severe symptomatic anemia with intermittent dark-colored stools for the last several months duration no active bleeding currently. Current Visit: Yes Status: Acute Code(s): D64.9 - ANEMIA, UNSPECIFIED SNOMED Code(s): 430527846 (2) Mechanical heart valve present Narrative/Plan: Coumadin coagulopathy INR improving with vitamin K Current Visit: Yes Status: Acute Code(s): Z95.2 - PRESENCE OF PROSTHETIC HEART VALVE SNOMED Code(s): 77653571923512 Plan: 1. Full liquid diet. Daily INR. Anticipate endoscopy in the next 48-72 hours pending INR improvement 1.5 or less. Assessment and plan a care discussed with Dr. Schmitt
[2018-06-07 11:22] LABS: Glucose,Whole Blood 84 mg/dL (75-99)
[2018-06-07] MEDS ORDERED: FUROSEMIDE 10 MG/ML 2 ML VIAL IV ONE (11:45)
--- NOTE | 2018-06-07 11:46 | P.PN ---
Subjective Patient is seen in follow-up for acute kidney injury on chronic kidney disease. Patient has chronic kidney disease stage III with creatinine in the range of 1.1-1.7 in April 2018. Creatinine was up to 4.08 on admission and is down to 1.34 today. Denies abdominal discomfort. Denies any melena or hematochezia. No diarrhea. She is tolerating clear liquid diet. Scheduled for endoscopy possibly tomorrow. Admits to good urine output. Vital signs are stable. General: The patient appeared well nourished and normally developed. HEENT: Head exam is unremarkable. Neck is without jugular venous distension. LUNGS: Lungs are clear to auscultation and percussion. Breath sounds decreased. HEART: Rate and Rhythm are regular. First and second heart sounds normal. No murmurs, rubs or gallops. ABDOMEN: Abdominal exam reveals normal bowel sounds. Non-tender and non- distended. No evidence of peritonitis. EXTREMITITES: Trace edema. Objective - Vital Signs Vital signs: Vital Signs Temp 97.6 F 06/07/18 11:39 Pulse 72 06/07/18 11:39 Resp 18 06/07/18 11:39 BP 166/70 06/07/18 11:39 Pulse Ox 98 06/07/18 11:39 Intake & Output 06/06/18 06/07/18 06/07/18 18:59 06:59 18:59 Intake Total 1018 550 222 Output Total 2 Balance 1018 550 220 Weight 71.6 kg Intake: Intake, IV Titration 550 Amount Sodium Chloride 0.45% 1, 550 000 ml @ 50 mls/hr IV . Q20H [facility] Rx#:[id number] Oral 1018 222 Output: Stool 2 Other: Voiding Method Toilet Toilet Toilet # Voids 3 1 - Labs CBC & Chem 7: 06/07/18 05:52 06/07/18 05:52 Labs: Abnormal Lab Results - Last 24 Hours (Table) 06/04/18 06/06/18 06/06/18 Range/Units 03:16 11:48 21:02 RBC (3.80-5.40) m/uL Hgb (11.4-16.0) gm/dL Hct (34.0-46.0) % RDW (11.5-15.5) % Plt Count (150-450) k/uL Lymphocytes # (1.0-4.8) k/uL PT (9.0-12.0) sec INR (<1.2) Chloride (98-107) mmol/L BUN (7-17) mg/dL Creatinine (0.52-1.04) mg/dL Glucose (74-99) mg/dL POC Glucose (mg/dL) 108 H 177 H (75-99) mg/dL Iron 42 L (50-170) ug/dL Iron Saturation 10.82 L (12.00-45.00) 06/07/18 06/07/18 06/07/18 Range/Units 05:52 05:52 05:52 RBC 3.11 L (3.80-5.40) m/uL Hgb 8.1 L (11.4-16.0) gm/dL Hct 25.7 L (34.0-46.0) % RDW 18.4 H (11.5-15.5) % Plt Count 149 L (150-450) k/uL Lymphocytes # 0.7 L (1.0-4.8) k/uL PT 23.9 H (9.0-12.0) sec INR 2.7 H (<1.2) Chloride 110 H (98-107) mmol/L BUN 23 H (7-17) mg/dL Creatinine 1.34 H (0.52-1.04) mg/dL Glucose 73 L (74-99) mg/dL POC Glucose (mg/dL) (75-99) mg/dL Iron (50-170) ug/dL Iron Saturation (12.00-45.00) Assessment and Plan Plan: Assessment: 1. Nonoliguric acute kidney injury mostly prerenal improving with IV hydration. Creatinine was over 4 on admission and is down to 1.34 today. Urinalysis is quite benign. 2. Chronic kidney disease stage III with baseline creatinine in the range of 1.1-1.7 in April 2018. 3. Hyperkalemia on admission. Improved with medical management. 4. Severe symptomatic anemia status post blood transfusion this admission. Concern for GI bleed. Scheduled for endoscopy tomorrow. Iron deficiency noted 5. Systolic CHF with ejection fraction of 35-40%. Currently compensated. 6. Insulin-dependent diabetes mellitus. 7. History of atrial fibrillation. 8. Hypertension with chronic kidney disease. 9. LE edema. Plan: Continue half-normal saline at 50 mL an hour. Lasix 20 mg IV once today. Maintain Aranesp. Ferrlecit 125 mg IV daily for 3 days. First dose today. Avoid nephrotoxins. Continue to hold Cozaar and Aldactone for now. Repeat electrolytes in the morning.
--- NOTE | 2018-06-07 12:06 | P.PN ---
Subjective Progress Note Date: 06/07/18 Principal diagnosis: GI bleed Patient is doing fairly well today. She is frustrated that she is still on liquid diet. Denies abdominal pain. Objective - Vital Signs Vital signs: Vital Signs Temp 97.6 F 06/07/18 11:39 Pulse 72 06/07/18 11:39 Resp 18 06/07/18 11:39 BP 166/70 06/07/18 11:39 Pulse Ox 98 06/07/18 11:39 Intake & Output 06/06/18 06/07/18 06/07/18 18:59 06:59 18:59 Intake Total 1018 550 222 Output Total 2 Balance 1018 550 220 Weight 71.6 kg Intake: Intake, IV Titration 550 Amount Sodium Chloride 0.45% 1, 550 000 ml @ 50 mls/hr IV . Q20H [facility] Rx#:[id number] Oral 1018 222 Output: Stool 2 Other: Voiding Method Toilet Toilet Toilet # Voids 3 1 - Exam General: The patient is awake and alert, in no distress Eye: there is normal conjunctiva bilaterally. Neck: The neck is supple, there is no JVD. Cardiovascular: Normal S1-S2, no S3-S4, no murmurs. Respiratory: Lungs clear to auscultation bilaterally Gastrointestinal: Abdomen is soft, nontender Musculoskeletal: There is no pedal edema. Neurological:. Speech is normal. Skin: Skin is warm and dry - Labs CBC & Chem 7: 06/07/18 05:52 06/07/18 05:52 Labs: Abnormal Lab Results - Last 24 Hours (Table) 06/04/18 06/06/18 06/07/18 Range/Units 03:16 21:02 05:52 RBC 3.11 L (3.80-5.40) m/uL Hgb 8.1 L (11.4-16.0) gm/dL Hct 25.7 L (34.0-46.0) % RDW 18.4 H (11.5-15.5) % Plt Count 149 L (150-450) k/uL Lymphocytes # 0.7 L (1.0-4.8) k/uL PT (9.0-12.0) sec INR (<1.2) Chloride (98-107) mmol/L BUN (7-17) mg/dL Creatinine (0.52-1.04) mg/dL Glucose (74-99) mg/dL POC Glucose (mg/dL) 177 H (75-99) mg/dL Iron 42 L (50-170) ug/dL Iron Saturation 10.82 L (12.00-45.00) 06/07/18 06/07/18 Range/Units 05:52 05:52 RBC (3.80-5.40) m/uL Hgb (11.4-16.0) gm/dL Hct (34.0-46.0) % RDW (11.5-15.5) % Plt Count (150-450) k/uL Lymphocytes # (1.0-4.8) k/uL PT 23.9 H (9.0-12.0) sec INR 2.7 H (<1.2) Chloride 110 H (98-107) mmol/L BUN 23 H (7-17) mg/dL Creatinine 1.34 H (0.52-1.04) mg/dL Glucose 73 L (74-99) mg/dL POC Glucose (mg/dL) (75-99) mg/dL Iron (50-170) ug/dL Iron Saturation (12.00-45.00) Assessment and Plan Assessment: This is a 78-year-old female with past medical history noted below who presented to the hospital with black tarry stool and was found to have evidence of GI bleed. She was found to have a hemoglobin of 6.8. She received 1 unit of packed RBC during this admission. She was seen and evaluated by GI and plan for upper and lower endoscopy when INR is below 1.7. GI bleeding/acute blood loss anemia Continue protonix twice a day Transfused 1 unit of packed red blood cells on presentation Follow CBC daily GI recommend doing upper and lower endoscopies, awaiting INR to be below 1.7 Acute on chronic renal failure stage III/hyperkalemia, unable to determine most likely related to hypotension and prerenal Renal function improving Continue gentle IV fluid hydration Holding losartan and diuretics Hyperkalemia resolved Nephrology is following, appreciate recommendation Status post aortic and mitral mechanical valve replacements Continue Coumadin, INR therapeutic, follow in a.m. DM type II, neuropathy bilateral feet, Blood sugar is borderline, patient will only be on clear liquid diet, hold home insulin regimen and start sliding scale insulin with blood sugar checks every before meals and at bedtime Hypertension, essential Continue clonidine and atenolol, hold LOSARTAN Stable DVT prophylaxis Already on Coumadin SCDs Plan for today: -Continue to hold Coumadin for now -Repeat CBC in the morning -Awaiting INR to be around 1.7 for GI to perform upper and lower endoscopy -We will start IV heparin drip when INR is below 2
[2018-06-07] MEDS: SODIUM FERRIC GLUCONAT-SUCROSE 125 MG in SODIUM CHLORIDE 0.9% 100 ML IVPB SCH (14:19)
--- NOTE | 2018-06-07 14:42 | P.PN ---
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 She had history of anemia and has been on iron but she stopped the iron for about a week in her stool remained black. She was seen in consultation yesterday by Dr. Winn. Patient is scheduled to undergo an EGD once her INR comes down to acceptable range. We will need to bridge the patient with IV heparin. She was seen and examined today, appears a little frustrated, denies any shortness of breath or difficulty breathing. She is sitting up in the chair at the time of our examination and has been encouraged to be up distance. Objective - Vital Signs Vital signs: Vital Signs Temp 97.6 F 06/07/18 11:39 Pulse 72 06/07/18 11:39 Resp 18 06/07/18 11:39 BP 166/70 06/07/18 11:39 Pulse Ox 98 06/07/18 11:39 Intake & Output 06/06/18 06/07/18 06/07/18 18:59 06:59 18:59 Intake Total 1018 550 222 Output Total 2 Balance 1018 550 220 Weight 71.6 kg 71.6 kg Intake: Intake, IV Titration 550 Amount Sodium Chloride 0.45% 1, 550 000 ml @ 50 mls/hr IV . Q20H [facility] Rx#:[id number] Oral 1018 222 Output: Stool 2 Other: Voiding Method Toilet Toilet Toilet # Voids 3 1 - Exam PHYSICAL EXAMINATION: GENERAL: 78-year-old female in no acute distress at the time of my examination HEENT: Head is atraumatic, normocephalic. Pupils equal, round. Sclera anicteric. Conjunctiva are clear. Mucous membranes of the mouth are moist. Neck is supple. There is no elevated jugular venous pressure.] bruit is heard. HEART EXAMINATION: Heart S1 and S2 prosthetic aortic and mitral sound is heard, systolic murmur heard CHEST EXAMINATION: Lungs are clear to auscultation and precussion. No chest wall tenderness is noted on palpation or with deep breathing. ABDOMEN: Soft, nontender. Bowel sounds are heard. No organomegaly noted. EXTREMITIES: 2+ peripheral pulses with no evidence of peripheral edema and no calf tenderness noted. NEUROLOGIC patient is awake, alert and oriented ?-3. . - Labs CBC & Chem 7: 06/07/18 05:52 06/07/18 05:52 Labs: Abnormal Lab Results - Last 24 Hours (Table) 06/04/18 06/06/18 06/07/18 Range/Units 03:16 21:02 05:52 RBC 3.11 L (3.80-5.40) m/uL Hgb 8.1 L (11.4-16.0) gm/dL Hct 25.7 L (34.0-46.0) % RDW 18.4 H (11.5-15.5) % Plt Count 149 L (150-450) k/uL Lymphocytes # 0.7 L (1.0-4.8) k/uL PT (9.0-12.0) sec INR (<1.2) Chloride (98-107) mmol/L BUN (7-17) mg/dL Creatinine (0.52-1.04) mg/dL Glucose (74-99) mg/dL POC Glucose (mg/dL) 177 H (75-99) mg/dL Iron 42 L (50-170) ug/dL Iron Saturation 10.82 L (12.00-45.00) 06/07/18 06/07/18 Range/Units 05:52 05:52 RBC (3.80-5.40) m/uL Hgb (11.4-16.0) gm/dL Hct (34.0-46.0) % RDW (11.5-15.5) % Plt Count (150-450) k/uL Lymphocytes # (1.0-4.8) k/uL PT 23.9 H (9.0-12.0) sec INR 2.7 H (<1.2) Chloride 110 H (98-107) mmol/L BUN 23 H (7-17) mg/dL Creatinine 1.34 H (0.52-1.04) mg/dL Glucose 73 L (74-99) mg/dL POC Glucose (mg/dL) (75-99) mg/dL Iron (50-170) ug/dL Iron Saturation (12.00-45.00) Assessment and Plan Plan: Assessment and plan #1 GI bleeding, workup in progress #2 status post aortic and mitral valve replacement #3 nonischemic cardiomyopathy #4 hypertension #5 chronic persistent atrial fibrillation #6 chronic kidney disease #7 prior pacemaker Plan We'll certain and metolazone continue to be on hold, BUN 23 and creatinine 1.3 today. Hemoglobin 8.1. INR 2.7. Patient will undergo EGD once INR becomes within acceptable range. Patient will need to be bridged with heparin because of increased risk of thromboembolic phenomena. We will continue to follow DNP note has been reviewed, I agree with a documented findings and plan of care. Patient was seen and examined.
[2018-06-07 16:30] LABS: Glucose,Whole Blood 115 mg/dL (75-99)
[2018-06-07 20:37] LABS: Glucose,Whole Blood 153 mg/dL (75-99)
[2018-06-07] MEDS: ATORVASTATIN 20 MG TAB PO SCH (21:53)
[2018-06-07] MEDS: MELATONIN 3 MG TABLET PO PRN (21:56)
[2018-06-07] MEDS: INSULIN DETEMIR 100 UNIT/ML 10 ML VIAL SQ SCH (21:57)
[2018-06-08 05:48] LABS: Glucose,Whole Blood 79 mg/dL (75-99)
[2018-06-08 06:08] LABS: Anisocytosis Slight; Basophils % (A) 1 %; Eosinophils # (A) 0.1 k/uL (0-0.7); Eosinophils % (A) 2 %; HCT 26.2 % (34.0-46.0); HGB 8.4 gm/dL (11.4-16.0); Hypochromasia Slight; Lymphocytes # (A) 0.8 k/uL (1.0-4.8); Lymphocytes % (A) 15 %; MCH 26.4 pg (25.0-35.0); MCHC 31.9 g/dL (31.0-37.0); MCV 82.6 fL (80.0-100.0); Mean Platelet Volume 7.3; Microcytosis Slight; Monocytes # (A) 0.3 k/uL (0-1.0); Monocytes % (A) 6 %; Neutrophils # (A) 3.9 k/uL (1.3-7.7); Neutrophils % (A) 74 %; Platelet Count 201 k/uL (150-450); Poikilocytosis Slight; RBC 3.18 m/uL (3.80-5.40); RDW 18.6 % (11.5-15.5); WBC 5.3 k/uL (3.8-10.6)
[2018-06-08 06:16] LABS: INR 1.7 (<1.2); Prothrombin Time 15.8 sec (9.0-12.0)
[2018-06-08] MEDS: INSULIN ASPART 100 UNIT/ML 1 ML 10 ML VIAL SQ SCH ×4 (06:38→21:09)
[2018-06-08] MEDS: SODIUM CHLORIDE 0.45% 1,000 ML IV SCH (06:38)
[2018-06-08 06:57] LABS: Calcium 8.6 mg/dL (8.4-10.2); Potassium 4.2 mmol/L (3.5-5.1)
[2018-06-08] MEDS ORDERED: PEG 3350-NA SULF,BICARB,CL/KCL 4,000 ML BOTTLE PO ONE (07:30)
[2018-06-08] MEDS: ACETAMINOPHEN TAB 325 MG TAB PO PRN (07:42)
[2018-06-08] MEDS: ATENOLOL 25 MG TAB PO SCH ×2 (07:42→20:28)
[2018-06-08] MEDS: hydrALAZINE HCL 25 MG TAB PO SCH ×2 (07:42→20:29)
[2018-06-08] MEDS: CHOLECALCIFEROL 1,000 UNIT TAB PO SCH (07:42)
[2018-06-08] MEDS: PANTOPRAZOLE 40 MG/10 ML VIAL IV SCH ×2 (07:42→20:29)
--- NOTE | 2018-06-08 09:20 | P.PN ---
Subjective Patient is seen in follow-up for acute kidney injury on chronic kidney disease. Patient has chronic kidney disease stage III with creatinine in the range of 1.1-1.7 in April 2018. Creatinine was up to 4.08 on admission and is stable at 1.35 today. Denies abdominal discomfort. Denies any melena or hematochezia. No diarrhea. She is tolerating clear liquid diet. Scheduled for endoscopy possibly today or tomorrow depending on her INR. Admits to good urine output. Edema improved. Vital signs are stable. General: The patient appeared well nourished and normally developed. HEENT: Head exam is unremarkable. Neck is without jugular venous distension. LUNGS: Lungs are clear to auscultation and percussion. Breath sounds decreased. HEART: Rate and Rhythm are regular. First and second heart sounds normal. No murmurs, rubs or gallops. ABDOMEN: Abdominal exam reveals normal bowel sounds. Non-tender and non- distended. No evidence of peritonitis. EXTREMITITES: Trace edema. Objective - Vital Signs Vital signs: Vital Signs Temp 97.4 F L 06/08/18 07:45 Pulse 72 06/08/18 07:45 Resp 18 06/08/18 07:45 BP 138/67 06/08/18 07:45 Pulse Ox 96 06/08/18 07:45 Intake & Output 06/07/18 06/08/18 06/08/18 18:59 06:59 18:59 Intake Total 822 400 Output Total 4 3 3 Balance 818 397 -3 Weight 71.6 kg 72.1 kg Intake: Intake, IV Titration 400 Amount Sodium Chloride 0.45% 1, 400 000 ml @ 50 mls/hr IV . Q20H [facility] Rx#:[id number] Oral 822 Output: Urine 0 Stool 4 3 3 Other: Voiding Method Toilet Toilet Toilet # Voids 2 - Labs CBC & Chem 7: 06/08/18 05:43 06/08/18 05:43 Labs: Abnormal Lab Results - Last 24 Hours (Table) 06/07/18 06/07/18 06/08/18 Range/Units 16:26 20:33 05:43 RBC 3.18 L (3.80-5.40) m/uL Hgb 8.4 L (11.4-16.0) gm/dL Hct 26.2 L (34.0-46.0) % RDW 18.6 H (11.5-15.5) % Lymphocytes # 0.8 L (1.0-4.8) k/uL PT (9.0-12.0) sec INR (<1.2) BUN (7-17) mg/dL Creatinine (0.52-1.04) mg/dL POC Glucose (mg/dL) 115 H 153 H (75-99) mg/dL 06/08/18 06/08/18 Range/Units 05:43 05:43 RBC (3.80-5.40) m/uL Hgb (11.4-16.0) gm/dL Hct (34.0-46.0) % RDW (11.5-15.5) % Lymphocytes # (1.0-4.8) k/uL PT 15.8 H (9.0-12.0) sec INR 1.7 H (<1.2) BUN 19 H (7-17) mg/dL Creatinine 1.35 H (0.52-1.04) mg/dL POC Glucose (mg/dL) (75-99) mg/dL Assessment and Plan Plan: Assessment: 1. Nonoliguric acute kidney injury mostly prerenal improving with IV hydration. Creatinine was over 4 on admission and is stable at 1.35 today. Urinalysis is quite benign. 2. Chronic kidney disease stage III with baseline creatinine in the range of 1.1-1.7 in April 2018. 3. Hyperkalemia on admission. Improved with medical management. 4. Severe symptomatic anemia status post blood transfusion this admission. Concern for GI bleed. Scheduled for endoscopy tomorrow. Iron deficiency noted 5. Systolic CHF with ejection fraction of 35-40%. Currently compensated. 6. Insulin-dependent diabetes mellitus. 7. History of atrial fibrillation. 8. Hypertension with chronic kidney disease. 9. LE edema. Improved. Status post IV Lasix June 07. Plan: Continue half-normal saline at 50 mL an hour. Maintain Aranesp. Ferrlecit 125 mg IV daily for 3 days. Second dose today. Avoid nephrotoxins. Continue to hold Cozaar and Aldactone for now. Repeat electrolytes in the morning.
[2018-06-08] MEDS: SODIUM FERRIC GLUCONAT-SUCROSE 125 MG in SODIUM CHLORIDE 0.9% 100 ML IVPB SCH (10:35)
[2018-06-08] MEDS ORDERED: HEPARIN SOD,PORK IN 0.45% NACL 25,000 UNIT in 0.45% NACL 1 500ML.BAG IV SCH (11:00)
[2018-06-08] MEDS ORDERED: HEPARIN SODIUM,PORCINE 5,000 UNIT/ML 1 ML VIAL IV PRN (11:00)
[2018-06-08 11:10] LABS: Glucose,Whole Blood 118 mg/dL (75-99)
--- NOTE | 2018-06-08 11:33 | P.PN ---
Progress Note - Text Progress Note Date: 06/08/[address] Schmitt recommended EGD colonoscopy today will start bowel prep continue clear liquids this morning nothing by mouth except medications starting at 2 PM for scheduled endoscopy later this evening.
--- NOTE | 2018-06-08 12:24 | P.PN ---
Subjective Progress Note Date: 06/08/18 Principal diagnosis: GI bleed Patient is doing well today. No events overnight. She is doing GoLYTELY prep for colonoscopy scheduled for 5 PM today. No acute events overnight. Objective - Vital Signs Vital signs: Vital Signs Temp 97.5 F L 06/08/18 12:11 Pulse 72 06/08/18 12:11 Resp 18 06/08/18 12:11 BP 157/65 06/08/18 12:11 Pulse Ox 97 06/08/18 12:11 Intake & Output 06/07/18 06/08/18 06/08/18 18:59 06:59 18:59 Intake Total 822 400 800 Output Total 4 3 6 Balance 818 397 794 Weight 71.6 kg 72.1 kg Intake: Intake, IV Titration 400 Amount Sodium Chloride 0.45% 1, 400 000 ml @ 50 mls/hr IV . Q20H [facility] Rx#:[id number] Oral 822 800 Output: Urine 0 Stool 4 3 6 Other: Voiding Method Toilet Toilet Toilet # Voids 2 - Exam General: The patient is awake and alert, in no distress Eye: there is normal conjunctiva bilaterally. Neck: The neck is supple, there is no JVD. Cardiovascular: Normal S1-S2, no S3-S4, no murmurs. Respiratory: Lungs clear to auscultation bilaterally Gastrointestinal: Abdomen is soft, nontender Musculoskeletal: There is no pedal edema. Neurological:. Speech is normal. Skin: Skin is warm and dry - Labs CBC & Chem 7: 06/08/18 05:43 06/08/18 05:43 Labs: Abnormal Lab Results - Last 24 Hours (Table) 06/07/18 06/07/18 06/08/18 Range/Units 16:26 20:33 05:43 RBC 3.18 L (3.80-5.40) m/uL Hgb 8.4 L (11.4-16.0) gm/dL Hct 26.2 L (34.0-46.0) % RDW 18.6 H (11.5-15.5) % Lymphocytes # 0.8 L (1.0-4.8) k/uL PT (9.0-12.0) sec INR (<1.2) APTT (22.0-30.0) sec BUN (7-17) mg/dL Creatinine (0.52-1.04) mg/dL POC Glucose (mg/dL) 115 H 153 H (75-99) mg/dL 06/08/18 06/08/18 06/08/18 Range/Units 05:43 05:43 05:43 RBC (3.80-5.40) m/uL Hgb (11.4-16.0) gm/dL Hct (34.0-46.0) % RDW (11.5-15.5) % Lymphocytes # (1.0-4.8) k/uL PT 15.8 H (9.0-12.0) sec INR 1.7 H (<1.2) APTT 31.0 H (22.0-30.0) sec BUN 19 H (7-17) mg/dL Creatinine 1.35 H (0.52-1.04) mg/dL POC Glucose (mg/dL) (75-99) mg/dL 06/08/18 Range/Units 11:08 RBC (3.80-5.40) m/uL Hgb (11.4-16.0) gm/dL Hct (34.0-46.0) % RDW (11.5-15.5) % Lymphocytes # (1.0-4.8) k/uL PT (9.0-12.0) sec INR (<1.2) APTT (22.0-30.0) sec BUN (7-17) mg/dL Creatinine (0.52-1.04) mg/dL POC Glucose (mg/dL) 118 H (75-99) mg/dL Assessment and Plan Assessment: This is a 78-year-old female with past medical history noted below who presented to the hospital with black tarry stool and was found to have evidence of GI bleed. She was found to have a hemoglobin of 6.8. She received 1 unit of packed RBC during this admission. She was seen and evaluated by GI and plan for upper and lower endoscopy when INR is below 1.7. GI bleeding/acute blood loss anemia Continue protonix twice a day Transfused 1 unit of packed red blood cells on presentation Follow CBC daily GI recommend doing upper and lower endoscopies, awaiting INR to be below 1.7 Acute on chronic renal failure stage III/hyperkalemia, unable to determine most likely related to hypotension and prerenal Renal function improving Continue gentle IV fluid hydration Holding losartan and diuretics Hyperkalemia resolved Nephrology is following, appreciate recommendation Status post aortic and mitral mechanical valve replacements Continue Coumadin, INR therapeutic, follow in a.m. DM type II, neuropathy bilateral feet, Blood sugar is borderline, patient will only be on clear liquid diet, hold home insulin regimen and start sliding scale insulin with blood sugar checks every before meals and at bedtime Hypertension, essential Continue clonidine and atenolol, hold LOSARTAN Stable DVT prophylaxis Currently on IV heparin drip SCDs Plan for today: -Continue to hold Coumadin for now, IV heparin drip started -Repeat CBC in the morning -Plan for EGD and colonoscopy today at 5 PM
--- NOTE | 2018-06-08 13:33 | P.PN ---
Subjective Progress Note Date: 06/08/18 This is an 78-year-old female with known history of rheumatic heart disease status post aortic and mitral valve replacements performed in , history of chronic persistent atrial fibrillation, prior pacemaker implantation, severe pulmonary hypertension with moderate LV dysfunction who presented with dark stool. She had history of anemia and has been on iron but she stopped the iron for about a week in her stool remained black. She was seen in consultation yesterday by Dr. Winn. Patient is scheduled to undergo an EGD once her INR comes down to acceptable range. We will need to bridge the patient with IV heparin. She was seen and examined today, appears a little frustrated, denies any shortness of breath or difficulty breathing. She is sitting up in the chair at the time of our examination and has been encouraged to be up distance. 06/08/2018 Patient seen and examined this morning, early being prepped for her procedure today. INR today is 1.7, white blood cell count 5.3, hemoglobin 8.4, platelet count 201. Sodium 138, potassium 4.2, BUN 19, creatinine 1.3. Heparin drip has been initiated, patient will need to remain on a heparin drip because of her history of valve replacements. Objective - Vital Signs Vital signs: Vital Signs Temp 97.5 F L 06/08/18 12:11 Pulse 72 06/08/18 12:11 Resp 18 06/08/18 12:11 BP 157/65 06/08/18 12:11 Pulse Ox 97 06/08/18 12:11 Intake & Output 06/07/18 06/08/18 06/08/18 18:59 06:59 18:59 Intake Total 822 400 800 Output Total 4 3 6 Balance 818 397 794 Weight 71.6 kg 72.1 kg Intake: Intake, IV Titration 400 Amount Sodium Chloride 0.45% 1, 400 000 ml @ 50 mls/hr IV . Q20H [facility] Rx#:[id number] Oral 822 800 Output: Urine 0 Stool 4 3 6 Other: Voiding Method Toilet Toilet Toilet # Voids 2 - Exam PHYSICAL EXAMINATION: GENERAL: 78-year-old female in no acute distress at the time of my examination HEENT: Head is atraumatic, normocephalic. Pupils equal, round. Sclera anicteric. Conjunctiva are clear. Mucous membranes of the mouth are moist. Neck is supple. There is no elevated jugular venous pressure.] bruit is heard. HEART EXAMINATION: Heart S1 and S2 prosthetic aortic and mitral sound is heard, systolic murmur heard CHEST EXAMINATION: Lungs are clear to auscultation and precussion. No chest wall tenderness is noted on palpation or with deep breathing. ABDOMEN: Soft, nontender. Bowel sounds are heard. No organomegaly noted. EXTREMITIES: 2+ peripheral pulses with no evidence of peripheral edema and no calf tenderness noted. NEUROLOGIC patient is awake, alert and oriented ?-3. . - Labs CBC & Chem 7: 06/08/18 05:43 06/08/18 05:43 Labs: Abnormal Lab Results - Last 24 Hours (Table) 06/07/18 06/07/18 06/08/18 Range/Units 16:26 20:33 05:43 RBC 3.18 L (3.80-5.40) m/uL Hgb 8.4 L (11.4-16.0) gm/dL Hct 26.2 L (34.0-46.0) % RDW 18.6 H (11.5-15.5) % Lymphocytes # 0.8 L (1.0-4.8) k/uL PT (9.0-12.0) sec INR (<1.2) APTT (22.0-30.0) sec BUN (7-17) mg/dL Creatinine (0.52-1.04) mg/dL POC Glucose (mg/dL) 115 H 153 H (75-99) mg/dL 06/08/18 06/08/18 06/08/18 Range/Units 05:43 05:43 05:43 RBC (3.80-5.40) m/uL Hgb (11.4-16.0) gm/dL Hct (34.0-46.0) % RDW (11.5-15.5) % Lymphocytes # (1.0-4.8) k/uL PT 15.8 H (9.0-12.0) sec INR 1.7 H (<1.2) APTT 31.0 H (22.0-30.0) sec BUN 19 H (7-17) mg/dL Creatinine 1.35 H (0.52-1.04) mg/dL POC Glucose (mg/dL) (75-99) mg/dL 06/08/18 Range/Units 11:08 RBC (3.80-5.40) m/uL Hgb (11.4-16.0) gm/dL Hct (34.0-46.0) % RDW (11.5-15.5) % Lymphocytes # (1.0-4.8) k/uL PT (9.0-12.0) sec INR (<1.2) APTT (22.0-30.0) sec BUN (7-17) mg/dL Creatinine (0.52-1.04) mg/dL POC Glucose (mg/dL) 118 H (75-99) mg/dL Assessment and Plan Plan: Assessment and plan #1 GI bleeding, workup in progress #2 status post aortic and mitral valve replacement #3 nonischemic cardiomyopathy #4 hypertension #5 chronic persistent atrial fibrillation #6 chronic kidney disease #7 prior pacemaker Plan We will resume the patient's IV heparin today. Patient will need to remain on the IV heparin until post procedure, and until the patient's INR is between 2-1/ 2 and 3. We will continue to follow. DNP note has been reviewed, I agree with a documented findings and plan of care. Patient was seen and examined.
[2018-06-08 16:44] LABS: Glucose,Whole Blood 87 mg/dL (75-99)
[2018-06-08] MEDS ORDERED: IV FLUID CONTINUATION 1,000 ML IV ONE (17:26)
[2018-06-08] MEDS: ATORVASTATIN 20 MG TAB PO SCH (20:29)
[2018-06-08 21:03] LABS: Glucose,Whole Blood 98 mg/dL (75-99)
[2018-06-08] MEDS: INSULIN DETEMIR 100 UNIT/ML 10 ML VIAL SQ SCH (21:09)
[2018-06-09 06:14] LABS: Glucose,Whole Blood 89 mg/dL (75-99)
[2018-06-09] MEDS: INSULIN ASPART 100 UNIT/ML 1 ML 10 ML VIAL SQ SCH ×4 (06:22→20:54)
[2018-06-09 06:23] LABS: Anisocytosis Slight; Basophils % (A) 1 %; Eosinophils # (A) 0.1 k/uL (0-0.7); Eosinophils % (A) 2 %; HCT 24.7 % (34.0-46.0); HGB 8.2 gm/dL (11.4-16.0); Hypochromasia Slight; Lymphocytes # (A) 0.6 k/uL (1.0-4.8); Lymphocytes % (A) 13 %; MCH 27.4 pg (25.0-35.0); Mean Platelet Volume 7.2; Microcytosis Slight; Monocytes # (A) 0.3 k/uL (0-1.0); Monocytes % (A) 7 %; Neutrophils # (A) 3.5 k/uL (1.3-7.7); Neutrophils % (A) 74 %; Platelet Count 176 k/uL (150-450); Poikilocytosis Slight; RBC 2.98 m/uL (3.80-5.40); WBC 4.7 k/uL (3.8-10.6)
[2018-06-09] MEDS ORDERED: LIDOCAINE 1% INJ 10MG/ML (20 ML MDV) ONE (06:35)
[2018-06-09] MEDS ORDERED: PROPOFOL 10 MG/ML 20 ML VIAL IV ONE (06:35)
[2018-06-09] MEDS ORDERED: IV FLUID CONTINUATION 900 ML IV ONE (06:38)
[2018-06-09 06:43] LABS: INR 1.4 (<1.2); Prothrombin Time 13.3 sec (9.0-12.0)
[2018-06-09 06:49] LABS: Calcium 8.5 mg/dL (8.4-10.2); Potassium 3.9 mmol/L (3.5-5.1)
--- NOTE | 2018-06-09 07:04 | P.PCN ---
Date of Procedure: 06/09/18 Procedure(s) Performed: BRIEF HISTORY: Patient is a 78-year-old pleasant at female, admitted to the hospital with severe symptomatic anemia and a hemoglobin of 8 g/dL. She has history of prior tobacco valve replacement and has been on Coumadin and the coagulopathy has been reversed and presently on IV heparin that has been on hold for 4 hours. She is scheduled for an elective colonoscopy . PROCEDURE PERFORMED: Colonoscopy with biopsy. PREOPERATIVE DIAGNOSIS: Severe symptomatic iron deficiency anemia. IV sedation per Anesthesia. PROCEDURE: After informed consent was obtained, the patient, was brought into the endoscopy unit. IV sedation was administered by Anesthesia under continuous monitoring. Digital rectal examination was normal. Initially the Olympus CF- 160 flexible video colonoscope was then inserted in the rectum, gradually advanced into the cecum without any difficulty. Careful examination was performed as the scope was gradually being withdrawn. Ileocecal valve and the appendiceal orifice were visualized and appeared normal. Prep was excellent. In the cecum there was a 3-4 cm ulcerated mass identified which was biopsied. The, ascending colon, transverse colon, descending colon, sigmoid colon, and rectum appeared normal. He was a 5 mL polyp noted in the sigmoid colon that was also biopsied. Retroflexion was performed in the rectum and grade 2 internal hemorrhoids were seen. The patient tolerated the procedure well. IMPRESSION: 3-4 cm ulcerated cecal mass status post multiple biopsies 5 mm sigmoid colon polyp status post biopsy Small internal hemorrhoids RECOMMENDATIONS: Findings of this examination were discussed with the patient are less family. She was advised to follow with the biopsy results. She will be scheduled for a CT of the abdomen and pelvis and will obtain surgical consultation with Dr. Alfaro. She will be on a clear liquid diet. IV heparin and resume.
[2018-06-09] MEDS ORDERED: HEPARIN SODIUM,PORCINE 5,000 UNIT/ML 1 ML VIAL IV ONE (07:20)
[2018-06-09] MEDS ORDERED: HEPARIN SODIUM,PORCINE 5,000 UNIT/ML 1 ML VIAL IV PRN (07:20)
[2018-06-09] MEDS ORDERED: ONDANSETRON 4 MG/2 ML VIAL IVP PRN (08:40)
[2018-06-09] MEDS: SODIUM FERRIC GLUCONAT-SUCROSE 125 MG in SODIUM CHLORIDE 0.9% 100 ML IVPB SCH (08:42)
[2018-06-09] MEDS: PANTOPRAZOLE 40 MG/10 ML VIAL IV SCH ×2 (08:42→19:36)
[2018-06-09] MEDS: ATENOLOL 25 MG TAB PO SCH ×2 (08:42→19:36)
[2018-06-09] MEDS: hydrALAZINE HCL 25 MG TAB PO SCH ×2 (08:42→19:36)
--- NOTE | 2018-06-09 08:53 | P.PN ---
Subjective Patient is seen in follow-up for acute kidney injury on chronic kidney disease. Patient has chronic kidney disease stage III with creatinine in the range of 1.1-1.7 in April 2018. Creatinine was up to 4.08 on admission and is down to 1.21 today. Denies abdominal discomfort. Denies any melena or hematochezia. No diarrhea. She is tolerating clear liquid diet and is requesting her diet to be advanced. Admits to good urine output. Edema improved. Vital signs are stable. General: The patient appeared well nourished and normally developed. HEENT: Head exam is unremarkable. Neck is without jugular venous distension. LUNGS: Lungs are clear to auscultation and percussion. Breath sounds decreased. HEART: Rate and Rhythm are regular. First and second heart sounds normal. No murmurs, rubs or gallops. ABDOMEN: Abdominal exam reveals normal bowel sounds. Non-tender and non- distended. No evidence of peritonitis. EXTREMITITES: Trace edema. Objective - Vital Signs Vital signs: Vital Signs Temp 97.8 F 06/09/18 00:00 Pulse 70 06/09/18 05:29 Resp 16 06/09/18 05:29 BP 108/79 06/09/18 04:00 Pulse Ox 100 06/09/18 04:00 Intake & Output 06/08/18 06/09/18 06/09/18 18:59 06:59 18:59 Intake Total 2960.235 100 Output Total 9 18 Balance 2951.235 82 Weight 76 kg Intake: IV 100 Intake, IV Titration 680.235 Amount Heparin Sod,Pork in 0.45% 180.235 NaCl 25,000 unit In 0.45 % NaCl 1 500ml.bag @ 12 UNITS/KG/HR 17.3 mls/hr IV .Q24H [facility] Rx#: [id number] Sodium Chloride 0.45% 1, 400 000 ml @ 50 mls/hr IV . Q20H [facility] Rx#:[id number] Sodium Ferric Gluconat- 100 Sucrose 125 mg In Sodium Chloride 0.9% 100 ml @ 100 mls/hr IVPB DAILY [facility] Rx#:[id number] Oral 2280 0 Output: Urine 0 Stool 9 18 Other: Voiding Method Toilet Toilet # Voids 3 - Labs CBC & Chem 7: 06/09/18 06:02 06/09/18 06:02 Labs: Abnormal Lab Results - Last 24 Hours (Table) 06/05/18 06/08/18 06/08/18 Range/Units 07:46 05:43 11:08 RBC (3.80-5.40) m/uL Hgb (11.4-16.0) gm/dL Hct (34.0-46.0) % RDW (11.5-15.5) % Lymphocytes # (1.0-4.8) k/uL PT (9.0-12.0) sec INR (<1.2) APTT 31.0 H (22.0-30.0) sec Creatinine (0.52-1.04) mg/dL POC Glucose (mg/dL) 118 H (75-99) mg/dL Crossmatch See Detail 06/08/18 06/09/18 06/09/18 Range/Units 17:00 00:40 06:02 RBC 2.98 L (3.80-5.40) m/uL Hgb 8.2 L (11.4-16.0) gm/dL Hct 24.7 L (34.0-46.0) % RDW 19.0 H (11.5-15.5) % Lymphocytes # 0.6 L (1.0-4.8) k/uL PT (9.0-12.0) sec INR (<1.2) APTT 124.9 H* 52.5 H (22.0-30.0) sec Creatinine (0.52-1.04) mg/dL POC Glucose (mg/dL) (75-99) mg/dL Crossmatch 06/09/18 06/09/18 Range/Units 06:02 06:02 RBC (3.80-5.40) m/uL Hgb (11.4-16.0) gm/dL Hct (34.0-46.0) % RDW (11.5-15.5) % Lymphocytes # (1.0-4.8) k/uL PT 13.3 H (9.0-12.0) sec INR 1.4 H (<1.2) APTT (22.0-30.0) sec Creatinine 1.21 H (0.52-1.04) mg/dL POC Glucose (mg/dL) (75-99) mg/dL Crossmatch Assessment and Plan Plan: Assessment: 1. Nonoliguric acute kidney injury mostly prerenal improving with IV hydration. Creatinine was over 4 on admission and is down to 1.21 today. Urinalysis is quite benign. 2. Chronic kidney disease stage III with baseline creatinine in the range of 1.1-1.7 in April 2018. 3. Hyperkalemia on admission. Improved with medical management. 4. Severe symptomatic anemia status post blood transfusion this admission. Concern for GI bleed. Iron deficiency noted. Status post colonoscopy this morning which revealed an ulcerated cecal mass as well as a sigmoid colon polyp along with small internal hemorrhoids. Biopsy results are pending. 5. Systolic CHF with ejection fraction of 35-40%. Currently compensated. 6. Insulin-dependent diabetes mellitus. 7. History of atrial fibrillation. 8. Hypertension with chronic kidney disease. 9. LE edema. Improved. Status post IV Lasix June 07. Plan: Continue half-normal saline at 50 mL an hour. Maintain Aranesp. Ferrlecit 125 mg IV daily for 3 days. Third dose today. Avoid nephrotoxins. Continue to hold Cozaar and Aldactone for now. Repeat electrolytes in the morning. Surgical recommendations pending.
[2018-06-09] MEDS: HEPARIN SOD,PORK IN 0.45% NACL 25,000 UNIT in 0.45% NACL 1 500ML.BAG IV SCH (09:52)
--- NOTE | 2018-06-09 10:18 | P.PN ---
Progress Note - Text Progress Note Date: 06/09/18 The patient had a colonoscopy performed by Dr. Schmitt this morning. She is found to have a ulcerated bleeding cecal mass. I discussed these findings the patient and her daughter. The patient will be scheduled for laparoscopic right colectomy in the a.m.
--- NOTE | 2018-06-09 10:22 | P.GSCN ---
History of Present Illness Consult date: 06/09/18 Reason for Consult: Cecal mass, GI bleed History of present illness: This a 78-year-old female who is minimal hospital for anemia and GI bleed. Patient underwent colonoscopy by Dr. Schmitt this morning she is found have evidence of a ulcerated cecal mass. Biopsies are pending. Past Medical History Past Medical History: Diabetes Mellitus Additional Past Medical History / Comment(s): IDDM type II, neuropathy bilateral feet, rheumatic fever 30's, osteomylitis, chronic kidney disease stage IIIB, History of Any Multi-Drug Resistant Organisms: None Reported Past Surgical History: Appendectomy, Cardiac Valve Replacement, Hysterectomy, Pacemaker Additional Past Surgical History / Comment(s): Current picc line R upper arm, 1994 mitral and aortic mechanical valves placed, Pacemakers-has had 2 or 3, colonoscopy, debridements bilateral great toe diabetic ulcers, bilateral cataract removals with lens implants. Past Anesthesia/Blood Transfusion Reactions: No Reported Reaction Additional Past Anesthesia/Blood Transfusion Reaction / Comm: Pt has received blood in past without reaction. Type of Cardiac Device: Permanent Pacemaker Device Placement Date:: Pt cannot recall date of last pacer insertion but battery changed 2011 Past Psychological History: No Psychological Hx Reported Smoking Status: Never smoker Past Alcohol Use History: None Reported Past Drug Use History: None Reported - Past Family History Brother(s) Additional Family Medical History / Comment(s): patient states brother had " heart problems" Father History Unknown: Yes Additional Family Medical History / Comment(s): Father committed suicide in his 50s. Mother History Unknown: Yes Family Medical History: No Reported History Additional Family Medical History / Comment(s): Mother was healthy and lived to be 92 yrs old. Medications and Allergies Home Medications Medication Instructions Recorded Confirmed Type Atenolol [Tenormin] 50 mg PO BID 10/12/16 06/03/18 History Insulin Aspart [NovoLOG Flexpen] 7 units SQ AC-BRKFST 10/12/16 06/03/18 History Insulin Aspart [NovoLOG Flexpen] 8 units SQ AC-LUNCH 10/12/16 06/03/18 History Insulin Aspart [NovoLOG Flexpen] 10 units SQ AC-SUPPER 10/12/16 06/03/18 History Losartan [Cozaar] 100 mg PO DAILY 10/12/16 06/03/18 History cloNIDine HCL [Catapres] 0.2 mg PO DAILY 10/12/16 06/03/18 History Metolazone [Zaroxolyn] 2.5 mg PO TU 03/16/17 06/03/18 History Simvastatin [Zocor] 40 mg PO HS 03/18/17 06/03/18 History Insulin Degludec [Tresiba 20 units SQ HS 04/23/18 06/03/18 History Flextouch U-100] Cholecalciferol [Vitamin D3] 1,000 unit PO DAILY 04/25/18 06/03/18 History Ferrous Sulfate [Iron (65 MG 325 mg PO BID 04/25/18 06/03/18 History Elemental)] Spironolactone [Aldactone] 50 mg PO DAILY #30 tab 05/01/18 06/03/18 Rx Furosemide [Lasix] 40 mg PO BID 06/03/18 06/03/18 History Warfarin [Coumadin] 2.5 mg PO MOTH 06/03/18 06/03/18 History Warfarin [Coumadin] 5 mg PO SUTUWEFRSA 06/03/18 06/03/18 History Allergies Allergy/AdvReac Type Severity Reaction Status Date / Time Iodinated Contrast- Oral and Allergy Rash/Hives Verified 06/03/18 12:11 IV Dye [Iodinated Contrast Media - IV Dye] Surgical - Exam Vital Signs Temp Pulse Resp BP Pulse Ox 97.7 F 65 18 127/56 97 06/03/18 11:44 06/03/18 11:44 06/03/18 11:44 06/03/18 11:44 06/03/18 11:44 - General well developed, no distress - Eyes PERRL - ENT normal pinna - Neck no masses - Respiratory normal expansion - Cardiovascular Rhythm: regular - Abdomen Abdomen: soft, non tender Results - Labs 06/09/18 06:02 06/09/18 06:02 Abnormal Lab Results - Last 24 Hours (Table) 06/05/18 06/08/18 06/08/18 Range/Units 07:46 05:43 11:08 RBC (3.80-5.40) m/uL Hgb (11.4-16.0) gm/dL Hct (34.0-46.0) % RDW (11.5-15.5) % Lymphocytes # (1.0-4.8) k/uL PT (9.0-12.0) sec INR (<1.2) APTT 31.0 H (22.0-30.0) sec Creatinine (0.52-1.04) mg/dL POC Glucose (mg/dL) 118 H (75-99) mg/dL Crossmatch See Detail 06/08/18 06/09/18 06/09/18 Range/Units 17:00 00:40 06:02 RBC 2.98 L (3.80-5.40) m/uL Hgb 8.2 L (11.4-16.0) gm/dL Hct 24.7 L (34.0-46.0) % RDW 19.0 H (11.5-15.5) % Lymphocytes # 0.6 L (1.0-4.8) k/uL PT (9.0-12.0) sec INR (<1.2) APTT 124.9 H* 52.5 H (22.0-30.0) sec Creatinine (0.52-1.04) mg/dL POC Glucose (mg/dL) (75-99) mg/dL Crossmatch 06/09/18 06/09/18 Range/Units 06:02 06:02 RBC (3.80-5.40) m/uL Hgb (11.4-16.0) gm/dL Hct (34.0-46.0) % RDW (11.5-15.5) % Lymphocytes # (1.0-4.8) k/uL PT 13.3 H (9.0-12.0) sec INR 1.4 H (<1.2) APTT (22.0-30.0) sec Creatinine 1.21 H (0.52-1.04) mg/dL POC Glucose (mg/dL) (75-99) mg/dL Crossmatch Diabetes panel 06/09/18 Range/Units 06:02 Sodium 138 (137-145) mmol/L Potassium 3.9 (3.5-5.1) mmol/L Chloride 107 (98-107) mmol/L Carbon Dioxide 22 (22-30) mmol/L BUN 16 (7-17) mg/dL Creatinine 1.21 H (0.52-1.04) mg/dL Glucose 85 (74-99) mg/dL Calcium 8.5 (8.4-10.2) mg/dL Calcium panel 06/09/18 Range/Units 06:02 Calcium 8.5 (8.4-10.2) mg/dL Pituitary panel 06/09/18 Range/Units 06:02 Sodium 138 (137-145) mmol/L Potassium 3.9 (3.5-5.1) mmol/L Chloride 107 (98-107) mmol/L Carbon Dioxide 22 (22-30) mmol/L BUN 16 (7-17) mg/dL Creatinine 1.21 H (0.52-1.04) mg/dL Glucose 85 (74-99) mg/dL Calcium 8.5 (8.4-10.2) mg/dL Adrenal panel 06/09/18 Range/Units 06:02 Sodium 138 (137-145) mmol/L Potassium 3.9 (3.5-5.1) mmol/L Chloride 107 (98-107) mmol/L Carbon Dioxide 22 (22-30) mmol/L BUN 16 (7-17) mg/dL Creatinine 1.21 H (0.52-1.04) mg/dL Glucose 85 (74-99) mg/dL Calcium 8.5 (8.4-10.2) mg/dL Assessment and Plan Assessment: Newly diagnosed Diagnosed cecal mass. The patient's bleeding is most likely coming from this mass. The patient be scheduled for laparoscopic right colectomy in the a.m. I went over the risks and benefits of surgery with the patient and her daughter.
[2018-06-09 11:45] LABS: Glucose,Whole Blood 97 mg/dL (75-99)
[2018-06-09] MEDS: CHOLECALCIFEROL 1,000 UNIT TAB PO SCH (12:04)
--- NOTE | 2018-06-09 12:30 | PN ---
PROGRESS NOTE Mrs Costa is an 78-year-old female with a known history of aortic and mitral valve replacement, history of persistent atrial fibrillation, who presented with anemia, underwent a colonoscopy, was found to have a mass and was evaluated by Dr. Ken and scheduled to undergo surgery with removal of her ulcerated cecal mass. She is feeling well this morning. Her breathing has been stable. She denies any symptoms of chest pain. She denies any dizziness or palpitations. She continues to be on the IV heparin, hydralazine 25 mg twice a day, insulin and Protonix and atenolol 25 mg twice a day, Lipitor 20 mg daily. PHYSICAL EXAMINATION: Blood pressure running in the 100s with a heart rate in the 80s. LUNGS: Clear. HEART: Irregular, regular, S1-S2 with prosthetic aortic and mitral sound and a systolic murmur. ABDOMEN: Soft. Mild tenderness. EXTREMITIES: No edema. LAB DATA: Revealed hemoglobin of 8.2. BUN creatinine 16 and 1.21. IMPRESSION: 1. Cecal mass with gastrointestinal bleeding. 2. Status post aortic and mitral valve replacement with a prosthetic valve. 3. Chronic persistent atrial fibrillation. 4. Hyperlipidemia. 5. Renal failure, improved. RECOMMENDATION: From the cardiac standpoint, will proceed with surgical intervention with right colectomy as scheduled. The patient will be continued on IV heparin after the surgery and it needs to be re-initiated as soon as possible postsurgery and subsequently switched to Coumadin because of her valvular disease and her atrial fibrillation. MMODL / IJN: [id number] /
--- NOTE | 2018-06-09 14:08 | P.PN ---
Subjective Progress Note Date: 06/09/18 Principal diagnosis: GI bleed Patient is doing well today. No events overnight. She denies any abdominal pain. She is aware of her colonoscopy findings. Objective - Vital Signs Vital signs: Vital Signs Temp 98.2 F 06/09/18 12:00 Pulse 75 06/09/18 12:00 Resp 18 06/09/18 12:00 BP 127/61 06/09/18 12:00 Pulse Ox 96 06/09/18 12:00 Intake & Output 06/08/18 06/09/18 06/09/18 18:59 06:59 18:59 Intake Total 2960.235 100 390 Output Total 9 18 Balance 2951.235 82 390 Weight 76 kg Intake: IV 100 Intake, IV Titration 680.235 150 Amount Heparin Sod,Pork in 0.45% 180.235 NaCl 25,000 unit In 0.45 % NaCl 1 500ml.bag @ 12 UNITS/KG/HR 17.3 mls/hr IV .Q24H [facility] Rx#: [id number] Sodium Chloride 0.45% 1, 400 50 000 ml @ 50 mls/hr IV . Q20H [facility] Rx#:[id number] Sodium Ferric Gluconat- 100 100 Sucrose 125 mg In Sodium Chloride 0.9% 100 ml @ 100 mls/hr IVPB DAILY [facility] Rx#:[id number] Oral 2280 0 240 Output: Urine 0 Stool 9 18 Other: Voiding Method Toilet Toilet # Voids 3 - Exam General: The patient is awake and alert, in no distress Eye: there is normal conjunctiva bilaterally. Neck: The neck is supple, there is no JVD. Cardiovascular: Normal S1-S2, no S3-S4, no murmurs. Respiratory: Lungs clear to auscultation bilaterally Gastrointestinal: Abdomen is soft, nontender Musculoskeletal: There is no pedal edema. Neurological:. Speech is normal. Skin: Skin is warm and dry - Labs CBC & Chem 7: 06/09/18 06:02 06/09/18 06:02 Labs: Abnormal Lab Results - Last 24 Hours (Table) 06/05/18 06/08/18 06/09/18 Range/Units 07:46 17:00 00:40 RBC (3.80-5.40) m/uL Hgb (11.4-16.0) gm/dL Hct (34.0-46.0) % RDW (11.5-15.5) % Lymphocytes # (1.0-4.8) k/uL PT (9.0-12.0) sec INR (<1.2) APTT 124.9 H* 52.5 H (22.0-30.0) sec Creatinine (0.52-1.04) mg/dL Crossmatch See Detail 06/09/18 06/09/18 06/09/18 Range/Units 06:02 06:02 06:02 RBC 2.98 L (3.80-5.40) m/uL Hgb 8.2 L (11.4-16.0) gm/dL Hct 24.7 L (34.0-46.0) % RDW 19.0 H (11.5-15.5) % Lymphocytes # 0.6 L (1.0-4.8) k/uL PT 13.3 H (9.0-12.0) sec INR 1.4 H (<1.2) APTT (22.0-30.0) sec Creatinine 1.21 H (0.52-1.04) mg/dL Crossmatch Assessment and Plan Assessment: This is a 78-year-old female with past medical history noted below who presented to the hospital with black tarry stool and was found to have evidence of GI bleed. She was found to have a hemoglobin of 6.8. She received 1 unit of packed RBC during this admission. #GI bleeding/acute blood loss anemia Transfused 1 unit of packed red blood cells on presentation Follow CBC daily #Ulcerated cecal mass: Noted on colonoscopy Would obtain computed tomography scan of the abdomen and pelvis for further evaluation Patient was seen and evaluated by general surgery & for light colectomy tomorrow morning Continue protonix twice a day #Acute on chronic renal failure stage III/hyperkalemia, unable to determine most likely related to hypotension and prerenal Renal function improving Continue gentle IV fluid hydration Holding losartan and diuretics Hyperkalemia resolved Nephrology is following, appreciate recommendation #Status post aortic and mitral mechanical valve replacements Currently on IV heparin drip Patient is typically on Coumadin at home #DM type II, neuropathy bilateral feet, Continue sliding scale insulin with blood sugar checks every before meals and at bedtime #Hypertension, essential Continue clonidine and atenolol, hold LOSARTAN Stable #DVT prophylaxis Currently on IV heparin drip SCDs
[2018-06-09] MEDS: SODIUM CHLORIDE 0.9% 1,000 ML IV SCH (16:47)
[2018-06-09] MEDS ORDERED: DEXAMETHASONE SOD PHOSPHATE 10 MG/ML 1 ML VIAL IV ONE (16:50)
[2018-06-09] MEDS ORDERED: MIDAZOLAM 2 MG/2 ML VIAL IV PRN (16:50)
[2018-06-09] MEDS ORDERED: ONDANSETRON 4 MG/2 ML VIAL IVP ONE (16:50)
[2018-06-09] MEDS ORDERED: fentaNYL (PF) 50 MCG/ML 2 ML AMP IV PRN (16:50)
[2018-06-09] MEDS ORDERED: LIDOCAINE 1% 20 ML VIAL (10MG/ML) FOR IV START INTRADERMA PRN (16:50)
[2018-06-09 16:51] LABS: Glucose,Whole Blood 117 mg/dL (75-99)
[2018-06-09] MEDS: ATORVASTATIN 20 MG TAB PO SCH (19:36)
[2018-06-09 20:49] LABS: Glucose,Whole Blood 129 mg/dL (75-99)
[2018-06-09] MEDS: INSULIN DETEMIR 100 UNIT/ML 10 ML VIAL SQ SCH (20:54)
[2018-06-10 05:58] LABS: Glucose,Whole Blood 109 mg/dL (75-99)
[2018-06-10] MEDS: SODIUM CHLORIDE 0.9% 1,000 ML IV SCH ×2 (06:02→21:57)
[2018-06-10] MEDS: INSULIN ASPART 100 UNIT/ML 1 ML 10 ML VIAL SQ SCH ×4 (06:03→22:26)
[2018-06-10 06:30] LABS: Anisocytosis Slight; Basophils % (A) 1 %; Eosinophils # (A) 0.1 k/uL (0-0.7); Eosinophils % (A) 2 %; HGB 8.1 gm/dL (11.4-16.0); Hypochromasia Moderate; Lymphocytes # (A) 1.1 k/uL (1.0-4.8); Lymphocytes % (A) 16 %; MCH 26.3 pg (25.0-35.0); MCHC 31.1 g/dL (31.0-37.0); MCV 84.5 fL (80.0-100.0); Mean Platelet Volume 6.8; Microcytosis Slight; Monocytes # (A) 0.5 k/uL (0-1.0); Monocytes % (A) 7 %; Neutrophils # (A) 4.6 k/uL (1.3-7.7); Neutrophils % (A) 71 %; Platelet Count 223 k/uL (150-450); RBC 3.08 m/uL (3.80-5.40); RDW 19.2 % (11.5-15.5); WBC 6.4 k/uL (3.8-10.6)
[2018-06-10 06:38] LABS: INR 1.4 (<1.2); Prothrombin Time 13.4 sec (9.0-12.0)
--- NOTE | 2018-06-10 07:50 | P.PN ---
Subjective Patient is seen in follow-up for acute kidney injury on chronic kidney disease. Patient has chronic kidney disease stage III with creatinine in the range of 1.1-1.7 in April 2018. Creatinine was up to 4.08 on admission and was down to 1.21 as of yesterday. Denies abdominal discomfort. Denies any melena or hematochezia. No diarrhea. Admits to good urine output. She underwent a colonoscopy on June 09 and was noted to have an ulcerated cecal mass. Scheduled for right colectomy today. Vital signs are stable. General: The patient appeared well nourished and normally developed. HEENT: Head exam is unremarkable. Neck is without jugular venous distension. LUNGS: Lungs are clear to auscultation and percussion. Breath sounds decreased. HEART: Rate and Rhythm are regular. First and second heart sounds normal. No murmurs, rubs or gallops. ABDOMEN: Abdominal exam reveals normal bowel sounds. Non-tender and non- distended. No evidence of peritonitis. EXTREMITITES: No edema. Objective - Vital Signs Vital signs: Vital Signs Temp 97.8 F 06/10/18 00:00 Pulse 72 06/10/18 04:00 Resp 18 06/10/18 04:00 BP 125/74 06/10/18 04:00 Pulse Ox 98 06/10/18 04:00 Intake & Output 06/09/18 06/10/18 06/10/18 18:59 06:59 18:59 Intake Total 1320 0 Output Total 1000 9 Balance 320 -9 Weight 73 kg Intake: Intake, IV Titration 600 Amount Sodium Chloride 0.45% 1, 50 000 ml @ 50 mls/hr IV . Q20H DAI Rx#:[id number] Sodium Chloride 0.9% 1, 450 000 ml @ 75 mls/hr IV . [id number] DAI Rx#:[id number] Sodium Ferric Gluconat- 100 Sucrose 125 mg In Sodium Chloride 0.9% 100 ml @ 100 mls/hr IVPB DAILY DAI Rx#:[id number] Oral 720 0 Output: Urine 1000 0 Stool 9 Other: Voiding Method Toilet # Voids 0 - Labs CBC & Chem 7: 06/10/18 05:32 06/09/18 06:02 Labs: Abnormal Lab Results - Last 24 Hours (Table) 06/09/18 06/09/18 06/09/18 Range/Units 06:02 15:59 16:47 RBC (3.80-5.40) m/uL Hgb (11.4-16.0) gm/dL Hct (34.0-46.0) % RDW (11.5-15.5) % PT (9.0-12.0) sec INR (<1.2) APTT 70.0 H (22.0-30.0) sec POC Glucose (mg/dL) 117 H (75-99) mg/dL Carcinoembryonic Ag 13.4 H (0.0-4.9) ng/mL 06/09/18 06/10/18 06/10/18 Range/Units 20:48 05:32 05:32 RBC 3.08 L (3.80-5.40) m/uL Hgb 8.1 L (11.4-16.0) gm/dL Hct 26.0 L (34.0-46.0) % RDW 19.2 H (11.5-15.5) % PT 13.4 H (9.0-12.0) sec INR 1.4 H (<1.2) APTT (22.0-30.0) sec POC Glucose (mg/dL) 129 H (75-99) mg/dL Carcinoembryonic Ag (0.0-4.9) ng/mL 06/10/18 06/10/18 Range/Units 05:32 05:57 RBC (3.80-5.40) m/uL Hgb (11.4-16.0) gm/dL Hct (34.0-46.0) % RDW (11.5-15.5) % PT (9.0-12.0) sec INR (<1.2) APTT 53.7 H (22.0-30.0) sec POC Glucose (mg/dL) 109 H (75-99) mg/dL Carcinoembryonic Ag (0.0-4.9) ng/mL Assessment and Plan Plan: Assessment: 1. Nonoliguric acute kidney injury mostly prerenal improving with IV hydration. Creatinine was over 4 on admission and is down to 1.21 as of yesterday. Urinalysis is quite benign. 2. Chronic kidney disease stage III with baseline creatinine in the range of 1.1-1.7 in April 2018. 3. Hyperkalemia on admission. Improved with medical management. 4. Severe symptomatic anemia status post blood transfusion this admission. Status post 3 doses of IV iron. Concern for GI bleed. Iron deficiency noted. Status post colonoscopy June 09 which revealed an ulcerated cecal mass as well as a sigmoid colon polyp along with small internal hemorrhoids. Biopsy results are pending. 5. Systolic CHF with ejection fraction of 35-40%. Currently compensated. 6. Insulin-dependent diabetes mellitus. 7. History of atrial fibrillation. 8. Hypertension with chronic kidney disease. Controlled. 9. LE edema. Improved. Status post IV Lasix June 07. Plan: Maintain Aranesp. Avoid nephrotoxins. Continue to hold Cozaar and Aldactone for now. Repeat electrolytes in the morning. Scheduled for right-sided colectomy today.
[2018-06-10 08:15] LABS: Magnesium 1.7 mg/dL (1.6-2.3); Potassium 4.7 mmol/L (3.5-5.1)
[2018-06-10] MEDS: PANTOPRAZOLE 40 MG/10 ML VIAL IV SCH ×2 (08:42→22:42)
[2018-06-10] MEDS: ATENOLOL 25 MG TAB PO SCH ×2 (08:42→22:42)
[2018-06-10] MEDS: hydrALAZINE HCL 25 MG TAB PO SCH ×2 (08:42→22:42)
[2018-06-10] MEDS: SODIUM FERRIC GLUCONAT-SUCROSE 125 MG in SODIUM CHLORIDE 0.9% 100 ML IVPB SCH (08:51)
--- NOTE | 2018-06-10 10:58 | P.PN ---
Subjective Progress Note Date: 06/10/18 Principal diagnosis: GI bleed Patient is doing well today. No events overnight. She denies any abdominal pain. She is scheduled for OR today Objective - Vital Signs Vital signs: Vital Signs Temp 98.2 F 06/10/18 08:00 Pulse 77 06/10/18 08:00 Resp 16 06/10/18 08:00 BP 151/70 06/10/18 08:00 Pulse Ox 98 06/10/18 08:00 Intake & Output 06/09/18 06/10/18 06/10/18 18:59 06:59 18:59 Intake Total 1320 0 0 Output Total 1000 9 Balance 320 -9 0 Weight 73 kg Intake: Intake, IV Titration 600 Amount Sodium Chloride 0.45% 1, 50 000 ml @ 50 mls/hr IV . Q20H DAI Rx#:[id number] Sodium Chloride 0.9% 1, 450 000 ml @ 75 mls/hr IV . [id number] DAI Rx#:[id number] Sodium Ferric Gluconat- 100 Sucrose 125 mg In Sodium Chloride 0.9% 100 ml @ 100 mls/hr IVPB DAILY DAI Rx#:[id number] Oral 720 0 0 Output: Urine 1000 0 Stool 9 Other: Voiding Method Toilet # Voids 0 1 - Exam General: The patient is awake and alert, in no distress Eye: there is normal conjunctiva bilaterally. Neck: The neck is supple, there is no JVD. Cardiovascular: Normal S1-S2, no S3-S4, no murmurs. Respiratory: Lungs clear to auscultation bilaterally Gastrointestinal: Abdomen is soft, nontender Musculoskeletal: There is no pedal edema. Neurological:. Speech is normal. Skin: Skin is warm and dry - Labs CBC & Chem 7: 06/10/18 05:32 06/10/18 05:32 Labs: Abnormal Lab Results - Last 24 Hours (Table) 06/09/18 06/09/18 06/09/18 Range/Units 06:02 15:59 16:47 RBC (3.80-5.40) m/uL Hgb (11.4-16.0) gm/dL Hct (34.0-46.0) % RDW (11.5-15.5) % PT (9.0-12.0) sec INR (<1.2) APTT 70.0 H (22.0-30.0) sec Creatinine (0.52-1.04) mg/dL Glucose (74-99) mg/dL POC Glucose (mg/dL) 117 H (75-99) mg/dL Carcinoembryonic Ag 13.4 H (0.0-4.9) ng/mL 06/09/18 06/10/18 06/10/18 Range/Units 20:48 05:32 05:32 RBC 3.08 L (3.80-5.40) m/uL Hgb 8.1 L (11.4-16.0) gm/dL Hct 26.0 L (34.0-46.0) % RDW 19.2 H (11.5-15.5) % PT 13.4 H (9.0-12.0) sec INR 1.4 H (<1.2) APTT (22.0-30.0) sec Creatinine (0.52-1.04) mg/dL Glucose (74-99) mg/dL POC Glucose (mg/dL) 129 H (75-99) mg/dL Carcinoembryonic Ag (0.0-4.9) ng/mL 06/10/18 06/10/18 06/10/18 Range/Units 05:32 05:32 05:57 RBC (3.80-5.40) m/uL Hgb (11.4-16.0) gm/dL Hct (34.0-46.0) % RDW (11.5-15.5) % PT (9.0-12.0) sec INR (<1.2) APTT 53.7 H (22.0-30.0) sec Creatinine 1.33 H (0.52-1.04) mg/dL Glucose 102 H (74-99) mg/dL POC Glucose (mg/dL) 109 H (75-99) mg/dL Carcinoembryonic Ag (0.0-4.9) ng/mL Assessment and Plan Assessment: This is a 78-year-old female with past medical history noted below who presented to the hospital with black tarry stool and was found to have evidence of GI bleed. She was found to have a hemoglobin of 6.8. She received 1 unit of packed RBC during this admission. #GI bleeding/acute blood loss anemia Transfused 1 unit of packed red blood cells on presentation Follow CBC daily #Ulcerated cecal mass: Noted on colonoscopy Patient was seen and evaluated by general surgery & plan for right colectomy today Continue protonix twice a day #Acute on chronic renal failure stage III/hyperkalemia, unable to determine most likely related to hypotension and prerenal Renal function improving Continue gentle IV fluid hydration Holding losartan and diuretics Hyperkalemia resolved Nephrology is following, appreciate recommendation #Status post aortic and mitral mechanical valve replacements Currently on IV heparin drip for now Patient is typically on Coumadin at home #DM type II, neuropathy bilateral feet, Continue sliding scale insulin with blood sugar checks every before meals and at bedtime #Hypertension, essential Continue clonidine and atenolol, hold LOSARTAN Stable #DVT prophylaxis Currently on IV heparin drip SCDs
--- NOTE | 2018-06-10 11:59 | P.PN ---
Subjective Progress Note Date: 06/10/18 Principal diagnosis: symptomatic anemia Scheduled for colectomy today. CEA 13.4. Denies abdominal pain. Hemoglobin 8.1. INR 1.4. Denies hematemesis hematochezia melena. Objective - Vital Signs Vital signs: Vital Signs Temp 93.1 F L 06/10/18 11:21 Pulse 74 06/10/18 11:21 Resp 16 06/10/18 11:21 BP 132/63 06/10/18 11:21 Pulse Ox 98 06/10/18 11:21 Intake & Output 06/09/18 06/10/18 06/10/18 18:59 06:59 18:59 Intake Total 1320 0 0 Output Total 1000 9 Balance 320 -9 0 Weight 73 kg 73 kg Intake: Intake, IV Titration 600 Amount Sodium Chloride 0.45% 1, 50 000 ml @ 50 mls/hr IV . Q20H DAI Rx#:[id number] Sodium Chloride 0.9% 1, 450 000 ml @ 75 mls/hr IV . [id number] DAI Rx#:[id number] Sodium Ferric Gluconat- 100 Sucrose 125 mg In Sodium Chloride 0.9% 100 ml @ 100 mls/hr IVPB DAILY DAI Rx#:[id number] Oral 720 0 0 Output: Urine 1000 0 Stool 9 Other: Voiding Method Toilet # Voids 0 1 - Exam General appearance: The patient is alert, oriented, in no acute distress. HET: Head is normocephalic and atraumatic. Pupils are equal and reactive. Oropharynx is clear without lesions. Neck: Supple without lymphadenopathy. Trachea midline. Heart: S1 S2. Regular rate and rhythm. Lungs: No crackles or wheezes are heard. Abdomen: Soft, nontender, nondistended with bowel sounds. No peritoneal signs. No palpable organomegaly or masses. Extremities: Normal skin color and turgor. No cyanosis, rash, ulceration, clubbing, or edema. Radial and pedal pulses are 2/4 bilaterally. Neurological: No focal deficits. Strength and sensation are grossly intact. - Labs CBC & Chem 7: 06/14/18 06:02 06/14/18 06:02 Labs: Abnormal Lab Results - Last 24 Hours (Table) 06/09/18 06/09/18 06/09/18 Range/Units 06:02 15:59 16:47 RBC (3.80-5.40) m/uL Hgb (11.4-16.0) gm/dL Hct (34.0-46.0) % RDW (11.5-15.5) % PT (9.0-12.0) sec INR (<1.2) APTT 70.0 H (22.0-30.0) sec Creatinine (0.52-1.04) mg/dL Glucose (74-99) mg/dL POC Glucose (mg/dL) 117 H (75-99) mg/dL Carcinoembryonic Ag 13.4 H (0.0-4.9) ng/mL 06/09/18 06/10/18 06/10/18 Range/Units 20:48 05:32 05:32 RBC 3.08 L (3.80-5.40) m/uL Hgb 8.1 L (11.4-16.0) gm/dL Hct 26.0 L (34.0-46.0) % RDW 19.2 H (11.5-15.5) % PT 13.4 H (9.0-12.0) sec INR 1.4 H (<1.2) APTT (22.0-30.0) sec Creatinine (0.52-1.04) mg/dL Glucose (74-99) mg/dL POC Glucose (mg/dL) 129 H (75-99) mg/dL Carcinoembryonic Ag (0.0-4.9) ng/mL 06/10/18 06/10/18 06/10/18 Range/Units 05:32 05:32 05:57 RBC (3.80-5.40) m/uL Hgb (11.4-16.0) gm/dL Hct (34.0-46.0) % RDW (11.5-15.5) % PT (9.0-12.0) sec INR (<1.2) APTT 53.7 H (22.0-30.0) sec Creatinine 1.33 H (0.52-1.04) mg/dL Glucose 102 H (74-99) mg/dL POC Glucose (mg/dL) 109 H (75-99) mg/dL Carcinoembryonic Ag (0.0-4.9) ng/mL Assessment and Plan (1) Symptomatic anemia Narrative/Plan: Status post colonoscopy 3-4 cm ulcerated cecal mass status post biopsy; pending. Small internal hemorrhoids. 5 mm sigmoid colon polypectomy. Current Visit: Yes Status: Acute Code(s): D64.9 - ANEMIA, UNSPECIFIED SNOMED Code(s): 504550318 (2) Mechanical heart valve present Current Visit: Yes Status: Acute Code(s): Z95.2 - PRESENCE OF PROSTHETIC HEART VALVE SNOMED Code(s): 26283835979878 (3) Elevated carcinoembryonic antigen (CEA) Current Visit: Yes Status: Acute Code(s): R97.0 - ELEVATED CARCINOEMBRYONIC ANTIGEN [CEA] SNOMED Code(s): 201132514 Plan: 1. Dr. Schmitt requested CT of the abdomen chest and pelvis without contrast secondary to ALLERGY evaluation to rule out metastatic disease. 2. Supportive measures. General surgery following. Assessment and plan a care discussed with Dr. Schmitt
--- NOTE | 2018-06-10 12:16 | PN ---
PROGRESS NOTE Mrs. Costa is an 78-year-old female, status post aortic and mitral valve replacement, history of chronic persistent atrial fibrillation, was found to have a cecal mass and is scheduled to undergo surgical intervention today. She is feeling well. She is denying any symptoms of chest pain. No dizziness. No palpitation. Her heparin was just stopped. She continues to be at this time on Lipitor 20 mg daily, atenolol 25 mg twice a day, hydralazine 25 mg twice a day. PHYSICAL EXAMINATION: Blood pressure 132/60 with a heart rate in the 70s. LUNGS: Clear. HEART: Irregular, irregular, S1-S2 with prosthetic aortic and mitral sound and a systolic murmur. ABDOMEN: Soft, nontender. EXTREMITIES: No edema. LAB DATA: Revealed an INR of 1.4. BUN and creatinine 13 and 1.33, potassium 8.1. IMPRESSION: 1. Cecal mass, scheduled for surgical intervention. 2. Anemia, related to #1. 3. Status post aortic and mitral valve replacement. 4. Chronic persistent atrial fibrillation. RECOMMENDATION: Patient will proceed with surgery today. I will re-initiate treatment with her heparin as soon as possible, because of her history of valvular disease and her atrial fibrillation. MMODL / IJN: [id number] /
[2018-06-10 12:22] LABS: Glucose,Whole Blood 126 mg/dL (75-99)
[2018-06-10] MEDS: CHOLECALCIFEROL 1,000 UNIT TAB PO SCH (12:37)
--- NOTE | 2018-06-10 12:37 | CT ---
EXAMINATION TYPE: CT ChestAbdPelvis wo con DATE OF EXAM: 06/10/2018 INDICATION: colon lesion COMPARISON: None CT DLP: 910 mGycm CONTRAST: Performed without Oral Contrast , no intravenous contrast TECHNIQUE: Axial images at 5 mm thick sections. Reconstructed images in the coronal plane. Delayed images through the kidneys. FINDINGS: CT CHEST: Portion of the thyroid visualized is normal. Mild infiltrate is in the lingula. This could be related atelectasis. Pulmonary contusion is consider ed less likely. No enlarged mediastinal or hilar adenopathy is evident. Cardiomegaly is present. Coronary artery calc ification is present. No pericardial effusion is evident. The ascending aorta diameter at the level of the main pulmonary artery is 4.2 cm. The main pulmonary artery diameter at the bifurcation is 4.[address] ABDOMEN: Liver: Scattered hypodensities are within the liver likely related to cysts. Larger cyst measuring 3. 3 cm and 5 Hounsfield units are within the anterior right lobe liver, and 1.8 cm cyst lateral left lo be liver measuring -9 Hounsfield units, the anterior left lobe liver cyst measuring 1.5 cm and 10 Praveen nsfield units. Large cyst at the inferior pole of the right lobe liver tip measuring 5.2 cm in -2 Praveen nsfield units. Spleen: Normal Pancreas: Normal Adrenal glands: The adrenal glands are normal. Gallbladder: Calcified gallstone is present. No pericholecystic fluid is identified. Kidneys: No masses are evident. No hydronephrosis is present. No cysts are present. No renal stone s are identified. Aorta: Vascular calcification is within the aorta. Inferior vena cava: Normal. CT PELVIS: Loops of bowel within the abdomen and pelvis are normal. Studies without oral contrast limiting b owel loop evaluation. There is some fullness without visualization of the lumen within the proximal a scending colon. Correlate with location of patient's reported lesion. Appendix: Normal as visualized. Urinary bladder: Normal. Genitourinary structures: Vaginal cuff region is normal. Uterus and ovaries are not identified. Adnex al regions are clear. Osseous structures: There may be a sclerotic area along the medial left iliac wing. Series 2 image 90 and bone windows. Suspicious or sclerotic lesions are not otherwise identified. Facet degenerative c hanges are within the lumbar spine. No fractures are evident. IMPRESSIONS: 1. Aneurysmal dilatation of the ascending thoracic aorta. 2. Cardiomegaly. 3. Hepatic cysts. 4. Cholelithiasis. 5. Fullness within the proximal ascending colon. Correlate with location of patient's reported: Milagros mast
[2018-06-10] MEDS: HEPARIN SOD,PORK IN 0.45% NACL 25,000 UNIT in 0.45% NACL 1 500ML.BAG IV SCH (12:38)
[2018-06-10] MEDS: LACTATED RINGERS 1,000 ML IV SCH ×2 (14:30→22:22)
[2018-06-10 14:48] LABS: Glucose,Whole Blood 111 mg/dL (75-99)
[2018-06-10] MEDS ORDERED: SUCCINYLCHOLINE CHLORIDE 100 MG/5 ML SYR IV ONE (16:18)
[2018-06-10] MEDS ORDERED: NEOSTIGMINE 1 MG/ML 10 ML VIAL ONE (16:18)
[2018-06-10] MEDS ORDERED: MIDAZOLAM 2 MG/2 ML VIAL ONE (16:18)
[2018-06-10] MEDS ORDERED: fentaNYL (PF) 50 MCG/ML 2 ML AMP ONE (16:18)
[2018-06-10] MEDS ORDERED: LIDOCAINE 1% INJ 10MG/ML (20 ML MDV) ONE (16:18)
[2018-06-10] MEDS ORDERED: PROPOFOL 10 MG/ML 20 ML VIAL IV ONE (16:18)
[2018-06-10] MEDS ORDERED: GLYCOPYRROLATE 0.2 MG/ML 2 ML VIAL ONE (16:18)
[2018-06-10] MEDS ORDERED: ROCURONIUM BROMIDE 10 MG/ML 10 ML VIAL IV ONE (16:18)
[2018-06-10] MEDS ORDERED: SODIUM CHLORIDE 0.9% 50 ML with ceFAZolin 2,000 MG IV ONE ×2 (16:36)
[2018-06-10] MEDS ORDERED: BUPIVACAIN-EPI 0.5%-1:200,000 30 ML VIAL SQ ONE (16:49)
[2018-06-10] MEDS ORDERED: METOCLOPRAMIDE 5 MG/ML 2 ML VIAL IVP PRN (17:48)
[2018-06-10] MEDS ORDERED: ONDANSETRON 4 MG/2 ML VIAL IVP PRN (17:48)
--- NOTE | 2018-06-10 17:48 | P.OP ---
Date of Procedure: 06/10/18 Preoperative Diagnosis: Right colon cancer Postoperative Diagnosis: Right colon cancer Adhesions Procedure(s) Performed: Laparoscopic right colectomy Laparoscopic lysis of adhesions Anesthesia: HEMA Surgeon: Felipe Ken Estimated Blood Loss (ml): 50 Pathology: other (Right colon) Condition: stable Disposition: PACU Description of Procedure: Patient's placed on the operating table in the supine position. She received general anesthesia. Her abdomen was prepped and draped usual sterile fashion. Using a Veress needle in the left upper quadrant the peritoneal cavity was entered and then the abdomen was insufflated. After adequate insufflation a 5 mm trochars placed the left lateral position under direct visualization. The laparoscope was placed to have a cavity. Next a 5 mm trocar is placed in the epigastric position and another 5 mm trocar is placed in left upper quadrant. The patient had extensive adhesions along her low midline scar. Approximately 20 minutes of operative time used to lyse adhesions. The right colon was then mobilized by dividing the white line of Toldt's and the hepatic flexure was mobilized by using the Harmonic scissors. Once the colon and small bowel are mobilized. The trochars withdrawn. Skin incision was made near the umbilicus. And a small fascial opening was created. The colon was brought up into the wound. The right colon was transected near the hepatic flexure and then the terminal ileum was transected with a GI stapler. And then using the Harmonic scissors the mesentery the bowel was divided. The specimen sent to pathology. A [id number] functional end-to-end staple anastomosis created between the ileum and the distal right colon using the DANIEL and TA stapler. 3-0 GI silk sutures using a crotch stitch. The abdomen was irrigated. There is no bleeding seen. The fascia was closed with looped #1 PDS suture. Skin was closed with valeriy. The trochars withdrawn and the trocar sites are closed with valeriy. Patient top she will was sent to recovery in stable condition.
[2018-06-10 18:10] LABS: Glucose,Whole Blood 171 mg/dL (75-99)
[2018-06-10] MEDS ORDERED: NEOSTIGMINE 1 MG/ML 10 ML VIAL IVPB ONE (18:18)
[2018-06-10] MEDS ORDERED: LABETALOL 5 MG/ML VIAL MDV IVP ONE (18:44)
[2018-06-10] MEDS ORDERED: FUROSEMIDE 10 MG/ML 4 ML VIAL IV ONE (18:49)
[2018-06-10] MEDS ORDERED: hydrALAZINE HCL 20 MG/ML 1 ML VIAL IVP ONE (19:00)
[2018-06-10] MEDS ORDERED: SODIUM CHLORIDE 0.9% 1,000 ML IV ONE (19:00)
[2018-06-10] MEDS: HYDROmorphone 0.5 MG/0.5 ML SYRINGE IVP PRN ×2 (19:08→19:30)
--- NOTE | 2018-06-10 19:15 | XR ---
EXAMINATION TYPE: XR chest 1V portable DATE OF EXAM: 06/10/2018 COMPARISON: NONE HISTORY: Short of breath TECHNIQUE: Single frontal view of the chest is obtained. FINDINGS: Heart is enlarged. There is some pulmonary vascular congestion. There is left axillary pac emaker with the lead tip in the right ventricle. There are sternal wires. There is free air under the left and right diaphragm consistent with recent surgery. IMPRESSION: There is mild congestive heart failure that is new compared to old exam. Moderate cardio megaly. There is new right upper lobe 4 cm area of consolidation. This is consistent with bronchopneu monia.
[2018-06-10 20:48] LABS: Glucose,Whole Blood 193 mg/dL (75-99)
[2018-06-10] MEDS: INSULIN DETEMIR 100 UNIT/ML 10 ML VIAL SQ SCH (22:26)
[2018-06-10] MEDS: D5-0.45% NACL WITH KCL 20MEQ/L 1,000 ML IV SCH (22:26)
[2018-06-10] MEDS: ACETAMINOPHEN TAB 325 MG TAB PO PRN (22:42)
[2018-06-10] MEDS: ALVIMOPAN 12 MG CAPSULE PO SCH (22:42)
[2018-06-10] MEDS: ATORVASTATIN 20 MG TAB PO SCH (22:42)
[2018-06-11] MEDS: D5-0.45% NACL WITH KCL 20MEQ/L 1,000 ML IV SCH ×2 (04:58→18:01)
[2018-06-11 05:59] LABS: Glucose,Whole Blood 223 mg/dL (75-99)
[2018-06-11] MEDS: SODIUM CHLORIDE 0.9% 1,000 ML IV SCH (06:04)
[2018-06-11] MEDS: ACETAMINOPHEN TAB 325 MG TAB PO PRN ×3 (06:57→23:15)
[2018-06-11] MEDS: INSULIN ASPART 100 UNIT/ML 1 ML 10 ML VIAL SQ SCH ×4 (07:07→21:20)
[2018-06-11 07:20] LABS: Anisocytosis Slight; Basophils % (A) 0 %; Eosinophils % (A) 0 %; HCT 26.1 % (34.0-46.0); HGB 7.9 gm/dL (11.4-16.0); Hypochromasia Moderate; Lymphocytes # (A) 0.5 k/uL (1.0-4.8); Lymphocytes % (A) 5 %; MCHC 30.4 g/dL (31.0-37.0); MCV 85.4 fL (80.0-100.0); Mean Platelet Volume 7.2; Monocytes # (A) 0.4 k/uL (0-1.0); Monocytes % (A) 5 %; Neutrophils # (A) 7.9 k/uL (1.3-7.7); Neutrophils % (A) 88 %; Platelet Count 216 k/uL (150-450); RBC 3.05 m/uL (3.80-5.40); RDW 19.2 % (11.5-15.5)
[2018-06-11 07:31] LABS: INR 1.9 (<1.2); Prothrombin Time 17.6 sec (9.0-12.0)
[2018-06-11 07:39] LABS: Calcium 8.3 mg/dL (8.4-10.2); Potassium 4.3 mmol/L (3.5-5.1)
[2018-06-11] MEDS: ALVIMOPAN 12 MG CAPSULE PO SCH ×2 (08:37→19:46)
[2018-06-11] MEDS: hydrALAZINE HCL 25 MG TAB PO SCH ×2 (08:37→19:46)
[2018-06-11] MEDS: ATENOLOL 25 MG TAB PO SCH ×2 (08:37→19:46)
[2018-06-11] MEDS: PANTOPRAZOLE 40 MG TABLET PO SCH ×2 (08:37→19:46)
[2018-06-11] MEDS: CHOLECALCIFEROL 1,000 UNIT TAB PO SCH (08:37)
[2018-06-11] MEDS: MORPHINE SULFATE 2 MG/ML SYRINGE IVP PRN ×4 (08:44→23:11)
[2018-06-11] MEDS ORDERED: DEXTROSE 5%-0.45% NACL 1,000 ML IV SCH (08:45)
[2018-06-11] MEDS ORDERED: HEPARIN SODIUM,PORCINE 5,000 UNIT/ML 1 ML VIAL IV PRN (09:06)
[2018-06-11] MEDS: HEPARIN SOD,PORK IN 0.45% NACL 25,000 UNIT in 0.45% NACL 1 500ML.BAG IV SCH (09:12)
--- NOTE | 2018-06-11 10:06 | P.PN ---
Subjective Progress Note Date: 06/11/18 Principal diagnosis: Colon cancer Patient underwent laparoscopic assisted right colectomy yesterday. Doing fairly well today. INR today is 1.9. White blood cell count 9 hemoglobin 7.9. Pain is well-controlled. Tolerating clears. Objective - Vital Signs Vital signs: Vital Signs Temp 97.6 F 06/11/18 08:00 Pulse 77 06/11/18 08:35 Resp 16 06/11/18 08:35 BP 146/86 06/11/18 08:00 Pulse Ox 99 06/11/18 08:00 Intake & Output 06/10/18 06/11/18 06/11/18 18:59 06:59 18:59 Intake Total 950 1600 250 Output Total 175 1125 Balance 775 475 250 Weight 73 kg 75 kg Intake: IV 950 400 10 Invasive Line 2 10 Intake, IV Titration 1000 Amount D5-0.45% NaCl with KCl 1000 20Meq/l 1,000 ml @ 125 mls/hr IV .Q8H DAI Rx#: [id number] Oral 0 200 240 Output: Urine 125 1125 Estimated Blood Loss 50 Other: Voiding Method Indwelling Catheter Toilet Bedside Commode # Voids 2 - Exam Abdomen: Soft, nondistended, incision with dressing intact, minimal tenderness - Labs CBC & Chem 7: 06/11/18 06:52 06/11/18 06:52 Labs: Abnormal Lab Results - Last 24 Hours (Table) 06/10/18 06/10/18 06/10/18 Range/Units 12:14 14:45 18:00 RBC (3.80-5.40) m/uL Hgb (11.4-16.0) gm/dL Hct (34.0-46.0) % MCHC (31.0-37.0) g/dL RDW (11.5-15.5) % Neutrophils # (1.3-7.7) k/uL Lymphocytes # (1.0-4.8) k/uL PT (9.0-12.0) sec INR (<1.2) APTT (22.0-30.0) sec Sodium (137-145) mmol/L Carbon Dioxide (22-30) mmol/L Creatinine (0.52-1.04) mg/dL Glucose (74-99) mg/dL POC Glucose (mg/dL) 126 H 111 H 171 H (75-99) mg/dL Calcium (8.4-10.2) mg/dL 06/10/18 06/10/18 06/11/18 Range/Units 20:46 21:20 05:55 RBC (3.80-5.40) m/uL Hgb (11.4-16.0) gm/dL Hct (34.0-46.0) % MCHC (31.0-37.0) g/dL RDW (11.5-15.5) % Neutrophils # (1.3-7.7) k/uL Lymphocytes # (1.0-4.8) k/uL PT (9.0-12.0) sec INR (<1.2) APTT 30.3 H (22.0-30.0) sec Sodium (137-145) mmol/L Carbon Dioxide (22-30) mmol/L Creatinine (0.52-1.04) mg/dL Glucose (74-99) mg/dL POC Glucose (mg/dL) 193 H 223 H (75-99) mg/dL Calcium (8.4-10.2) mg/dL 06/11/18 06/11/18 06/11/18 Range/Units 06:52 06:52 06:52 RBC 3.05 L (3.80-5.40) m/uL Hgb 7.9 L (11.4-16.0) gm/dL Hct 26.1 L (34.0-46.0) % MCHC 30.4 L (31.0-37.0) g/dL RDW 19.2 H (11.5-15.5) % Neutrophils # 7.9 H (1.3-7.7) k/uL Lymphocytes # 0.5 L (1.0-4.8) k/uL PT 17.6 H (9.0-12.0) sec INR 1.9 H (<1.2) APTT (22.0-30.0) sec Sodium 136 L (137-145) mmol/L Carbon Dioxide 20 L (22-30) mmol/L Creatinine 1.15 H (0.52-1.04) mg/dL Glucose 201 H (74-99) mg/dL POC Glucose (mg/dL) (75-99) mg/dL Calcium 8.3 L (8.4-10.2) mg/dL Assessment and Plan (1) Colon cancer Narrative/Plan: Advance diet to full liquids tomorrow. May start heparin drip later tonight. Monitor lab work. Current Visit: Yes Status: Acute Code(s): C18.9 - MALIGNANT NEOPLASM OF COLON, UNSPECIFIED SNOMED Code(s): 118751239
--- NOTE | 2018-06-11 10:31 | P.PN ---
Subjective Progress Note Date: 06/11/18 Principal diagnosis: Cecal mass status post right colectomy Patient is awake and alert today. She appeared uncomfortable as her abdominal pain is not well controlled. She only got Tylenol for pain control earlier. Objective - Vital Signs Vital signs: Vital Signs Temp 97.6 F 06/11/18 08:00 Pulse 77 06/11/18 08:35 Resp 16 06/11/18 08:35 BP 146/86 06/11/18 08:00 Pulse Ox 99 06/11/18 08:00 Intake & Output 06/10/18 06/11/18 06/11/18 18:59 06:59 18:59 Intake Total 950 1600 250 Output Total 175 1125 Balance 775 475 250 Weight 73 kg 75 kg Intake: IV 950 400 10 Invasive Line 2 10 Intake, IV Titration 1000 Amount D5-0.45% NaCl with KCl 1000 20Meq/l 1,000 ml @ 125 mls/hr IV .Q8H [facility] Rx#: [id number] Oral 0 200 240 Output: Urine 125 1125 Estimated Blood Loss 50 Other: Voiding Method Indwelling Catheter Toilet Bedside Commode # Voids 2 - Exam General: The patient is awake and alert, in no distress Eye: there is normal conjunctiva bilaterally. Neck: The neck is supple, there is no JVD. Cardiovascular: Normal S1-S2, no S3-S4, no murmurs. Respiratory: Lungs clear to auscultation bilaterally Gastrointestinal: Abdomen is soft, there is moderate to severe tenderness to palpation. Musculoskeletal: There is no pedal edema. Neurological:. Speech is normal. Skin: Skin is warm and dry - Labs CBC & Chem 7: 06/11/18 06:52 06/11/18 06:52 Labs: Abnormal Lab Results - Last 24 Hours (Table) 06/10/18 06/10/18 06/10/18 Range/Units 12:14 14:45 18:00 RBC (3.80-5.40) m/uL Hgb (11.4-16.0) gm/dL Hct (34.0-46.0) % MCHC (31.0-37.0) g/dL RDW (11.5-15.5) % Neutrophils # (1.3-7.7) k/uL Lymphocytes # (1.0-4.8) k/uL PT (9.0-12.0) sec INR (<1.2) APTT (22.0-30.0) sec Sodium (137-145) mmol/L Carbon Dioxide (22-30) mmol/L Creatinine (0.52-1.04) mg/dL Glucose (74-99) mg/dL POC Glucose (mg/dL) 126 H 111 H 171 H (75-99) mg/dL Calcium (8.4-10.2) mg/dL 06/10/18 06/10/18 06/11/18 Range/Units 20:46 21:20 05:55 RBC (3.80-5.40) m/uL Hgb (11.4-16.0) gm/dL Hct (34.0-46.0) % MCHC (31.0-37.0) g/dL RDW (11.5-15.5) % Neutrophils # (1.3-7.7) k/uL Lymphocytes # (1.0-4.8) k/uL PT (9.0-12.0) sec INR (<1.2) APTT 30.3 H (22.0-30.0) sec Sodium (137-145) mmol/L Carbon Dioxide (22-30) mmol/L Creatinine (0.52-1.04) mg/dL Glucose (74-99) mg/dL POC Glucose (mg/dL) 193 H 223 H (75-99) mg/dL Calcium (8.4-10.2) mg/dL 06/11/18 06/11/18 06/11/18 Range/Units 06:52 06:52 06:52 RBC 3.05 L (3.80-5.40) m/uL Hgb 7.9 L (11.4-16.0) gm/dL Hct 26.1 L (34.0-46.0) % MCHC 30.4 L (31.0-37.0) g/dL RDW 19.2 H (11.5-15.5) % Neutrophils # 7.9 H (1.3-7.7) k/uL Lymphocytes # 0.5 L (1.0-4.8) k/uL PT 17.6 H (9.0-12.0) sec INR 1.9 H (<1.2) APTT (22.0-30.0) sec Sodium 136 L (137-145) mmol/L Carbon Dioxide 20 L (22-30) mmol/L Creatinine 1.15 H (0.52-1.04) mg/dL Glucose 201 H (74-99) mg/dL POC Glucose (mg/dL) (75-99) mg/dL Calcium 8.3 L (8.4-10.2) mg/dL Assessment and Plan Assessment: 1. Cecal mass presenting with GI bleed: Status post laparoscopic right colectomy. Continue postoperative care. Gen. surgery following closely. Currently on liquid diet. Cecal mass was noted on the colonoscopy. Pathology still pending. 2. Acute on chronic blood loss anemia, status post 1 unit of PRBC transfusion on presentation. Hemoglobin relatively stable. 3. Acute renal failure on presentation secondary to hypotension and intravascular depletion, improved significantly with IV fluid. Currently back to baseline. Losartan and diuretics on hold. 4. 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 Was discontinued and placed on heparin until her surgery. Plan to resume heparin tonight per surgery recommendations. We will bridge with Coumadin starting tonight as well. Continue to check INR daily. 5. 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 6. Essential hypertension, a pressure within acceptable range. Continue current regimen. Losartan on hold. 7. DVT prophylaxis: We will resume IV heparin tonight with Coumadin bridge 8. Physical debility, PT/OT evaluation Today, I reviewed her lab work results and medication list. Continue current regimen. Repeat lab work in the morning. Advance diet as directed by general surgery.
[2018-06-11] MEDS ORDERED: DEXTROSE 5%-0.45% NACL 1,000 ML with POTASSIUM CHLORIDE 20 MEQ IV SCH ×2 (11:00)
--- NOTE | 2018-06-11 11:02 | P.PN ---
Subjective Progress Note Date: 06/11/18 This is a pleasant 78-year-old female, status post aortic and mitral valve replacement, history of chronic persistent atrial fibrillation. She was found to have a cecal mass and underwent laparoscopic cholecystectomy yesterday. This morning she is feeling fairly well she does have some lower abdominal discomfort. She denies symptoms of chest discomfort, dizziness, palpitations or shortness of breath. Her heparin remained on hold. She is currently on Tenormin 25 mg by mouth twice a day, Lipitor 20 mg by mouth daily, hydralazine 25 mg by mouth twice a day and Coumadin 5 mg by mouth daily. Hemoglobin today is 7.9, down from 8.1 yesterday, INR is 1.9, BUN 16, creatinine 1.15. Her vital signs are stable. Objective - Vital Signs Vital signs: Vital Signs Temp 97.6 F 06/11/18 08:00 Pulse 77 06/11/18 08:35 Resp 16 06/11/18 08:35 BP 146/86 06/11/18 08:00 Pulse Ox 99 06/11/18 08:00 Intake & Output 06/10/18 06/11/18 06/11/18 18:59 06:59 18:59 Intake Total 950 1600 250 Output Total 175 1125 Balance 775 475 250 Weight 73 kg 75 kg Intake: IV 950 400 10 Invasive Line 2 10 Intake, IV Titration 1000 Amount D5-0.45% NaCl with KCl 1000 20Meq/l 1,000 ml @ 125 mls/hr IV .Q8H [facility] Rx#: [id number] Oral 0 200 240 Output: Urine 125 1125 Estimated Blood Loss 50 Other: Voiding Method Indwelling Catheter Toilet Bedside Commode # Voids 2 - Exam PHYSICAL EXAMINATION: HEENT: Head is atraumatic, normocephalic. Pupils equal, round. Neck is supple. There is no elevated jugular venous pressure. HEART EXAMINATION: Heart sounds irregularly irregular, S1 and S2 with prosthetic aortic and mitral sounds as well as systolic murmur. CHEST EXAMINATION: Lungs are clear to auscultation and precussion. No chest wall tenderness is noted on palpation or with deep breathing. ABDOMEN: Soft, mild tenderness noted to lower abdomen. Bowel sounds are heard. No organomegaly noted. EXTREMITIES: 2+ peripheral pulses with no evidence of peripheral edema and no calf tenderness noted. NEUROLOGIC patient is awake, alert and oriented x3. . - Labs CBC & Chem 7: 06/11/18 06:52 06/11/18 06:52 Labs: Abnormal Lab Results - Last 24 Hours (Table) 06/10/18 06/10/18 06/10/18 Range/Units 12:14 14:45 18:00 RBC (3.80-5.40) m/uL Hgb (11.4-16.0) gm/dL Hct (34.0-46.0) % MCHC (31.0-37.0) g/dL RDW (11.5-15.5) % Neutrophils # (1.3-7.7) k/uL Lymphocytes # (1.0-4.8) k/uL PT (9.0-12.0) sec INR (<1.2) APTT (22.0-30.0) sec Sodium (137-145) mmol/L Carbon Dioxide (22-30) mmol/L Creatinine (0.52-1.04) mg/dL Glucose (74-99) mg/dL POC Glucose (mg/dL) 126 H 111 H 171 H (75-99) mg/dL Calcium (8.4-10.2) mg/dL 06/10/18 06/10/18 06/11/18 Range/Units 20:46 21:20 05:55 RBC (3.80-5.40) m/uL Hgb (11.4-16.0) gm/dL Hct (34.0-46.0) % MCHC (31.0-37.0) g/dL RDW (11.5-15.5) % Neutrophils # (1.3-7.7) k/uL Lymphocytes # (1.0-4.8) k/uL PT (9.0-12.0) sec INR (<1.2) APTT 30.3 H (22.0-30.0) sec Sodium (137-145) mmol/L Carbon Dioxide (22-30) mmol/L Creatinine (0.52-1.04) mg/dL Glucose (74-99) mg/dL POC Glucose (mg/dL) 193 H 223 H (75-99) mg/dL Calcium (8.4-10.2) mg/dL 06/11/18 06/11/18 06/11/18 Range/Units 06:52 06:52 06:52 RBC 3.05 L (3.80-5.40) m/uL Hgb 7.9 L (11.4-16.0) gm/dL Hct 26.1 L (34.0-46.0) % MCHC 30.4 L (31.0-37.0) g/dL RDW 19.2 H (11.5-15.5) % Neutrophils # 7.9 H (1.3-7.7) k/uL Lymphocytes # 0.5 L (1.0-4.8) k/uL PT 17.6 H (9.0-12.0) sec INR 1.9 H (<1.2) APTT (22.0-30.0) sec Sodium 136 L (137-145) mmol/L Carbon Dioxide 20 L (22-30) mmol/L Creatinine 1.15 H (0.52-1.04) mg/dL Glucose 201 H (74-99) mg/dL POC Glucose (mg/dL) (75-99) mg/dL Calcium 8.3 L (8.4-10.2) mg/dL Assessment and Plan Assessment: #1 cecal mass, status post laparoscopic colectomy #2 anemia related to #1 #3 status post prosthetic aortic and mitral valve replacement #4 chronic persistent atrial fibrillation Plan: From cardiology's perspective, continue Coumadin. We will resume heparin tonight. Continue to follow the patient 5 further recommendations accordingly. [employer] note has been reviewed, I agree with a documented findings and plan of care. Patient was seen and examined.
[2018-06-11 11:26] LABS: Glucose,Whole Blood 203 mg/dL (75-99)
--- NOTE | 2018-06-11 11:37 | P.PN ---
Subjective Progress Note Date: 06/11/18 Principal diagnosis: This is an 78-year-old female seen in consultation because of acute kidney injury from prerenal, improved with hydration. She underwent a laparoscopic colectomy on 06/10/2018 yesterday. She has some mild pain especially on coughing on her abdomen otherwise she denies any complaints she is on clear liquids at the time. Denies any shortness of breath. She has mild cough. No fever chills. She is known with chronic kidney disease stage III with wearing baseline of 1.1- 1.7 since April 2018. Was also hyperkalemic on admission, CHF with systolic dysfunction ejection fraction of 35-40%. She is also known with diabetes and atrial fibrillation. Objective - Vital Signs Vital signs: Vital Signs Temp 97.6 F 06/11/18 08:00 Pulse 77 06/11/18 08:35 Resp 16 06/11/18 08:35 BP 146/86 06/11/18 08:00 Pulse Ox 99 06/11/18 08:00 Intake & Output 06/10/18 06/11/18 06/11/18 18:59 06:59 18:59 Intake Total 950 1600 250 Output Total 175 1125 Balance 775 475 250 Weight 73 kg 75 kg Intake: IV 950 400 10 Invasive Line 2 10 Intake, IV Titration 1000 Amount D5-0.45% NaCl with KCl 1000 20Meq/l 1,000 ml @ 125 mls/hr IV .Q8H [facility] Rx#: [id number] Oral 0 200 240 Output: Urine 125 1125 Estimated Blood Loss 50 Other: Voiding Method Indwelling Catheter Toilet Bedside Commode # Voids 2 On examination she is awake alert oriented seems comfortable HEENT exam no JVP neck is supple no facial asymmetry Lungs are clear to auscultation fair air entry bilaterally Heart sounds are unremarkable no murmur rub gallop Abdomen soft nontender, slightly tender when she coughs and in pain when she coughs. Extreme exam was no edema Neurologically awake alert oriented - Labs CBC & Chem 7: 06/11/18 06:52 06/11/18 06:52 Labs: Abnormal Lab Results - Last 24 Hours (Table) 06/10/18 06/10/18 06/10/18 Range/Units 12:14 14:45 18:00 RBC (3.80-5.40) m/uL Hgb (11.4-16.0) gm/dL Hct (34.0-46.0) % MCHC (31.0-37.0) g/dL RDW (11.5-15.5) % Neutrophils # (1.3-7.7) k/uL Lymphocytes # (1.0-4.8) k/uL PT (9.0-12.0) sec INR (<1.2) APTT (22.0-30.0) sec Sodium (137-145) mmol/L Carbon Dioxide (22-30) mmol/L Creatinine (0.52-1.04) mg/dL Glucose (74-99) mg/dL POC Glucose (mg/dL) 126 H 111 H 171 H (75-99) mg/dL Calcium (8.4-10.2) mg/dL 06/10/18 06/10/18 06/11/18 Range/Units 20:46 21:20 05:55 RBC (3.80-5.40) m/uL Hgb (11.4-16.0) gm/dL Hct (34.0-46.0) % MCHC (31.0-37.0) g/dL RDW (11.5-15.5) % Neutrophils # (1.3-7.7) k/uL Lymphocytes # (1.0-4.8) k/uL PT (9.0-12.0) sec INR (<1.2) APTT 30.3 H (22.0-30.0) sec Sodium (137-145) mmol/L Carbon Dioxide (22-30) mmol/L Creatinine (0.52-1.04) mg/dL Glucose (74-99) mg/dL POC Glucose (mg/dL) 193 H 223 H (75-99) mg/dL Calcium (8.4-10.2) mg/dL 06/11/18 06/11/18 06/11/18 Range/Units 06:52 06:52 06:52 RBC 3.05 L (3.80-5.40) m/uL Hgb 7.9 L (11.4-16.0) gm/dL Hct 26.1 L (34.0-46.0) % MCHC 30.4 L (31.0-37.0) g/dL RDW 19.2 H (11.5-15.5) % Neutrophils # 7.9 H (1.3-7.7) k/uL Lymphocytes # 0.5 L (1.0-4.8) k/uL PT 17.6 H (9.0-12.0) sec INR 1.9 H (<1.2) APTT (22.0-30.0) sec Sodium 136 L (137-145) mmol/L Carbon Dioxide 20 L (22-30) mmol/L Creatinine 1.15 H (0.52-1.04) mg/dL Glucose 201 H (74-99) mg/dL POC Glucose (mg/dL) (75-99) mg/dL Calcium 8.3 L (8.4-10.2) mg/dL 06/11/18 Range/Units 11:25 RBC (3.80-5.40) m/uL Hgb (11.4-16.0) gm/dL Hct (34.0-46.0) % MCHC (31.0-37.0) g/dL RDW (11.5-15.5) % Neutrophils # (1.3-7.7) k/uL Lymphocytes # (1.0-4.8) k/uL PT (9.0-12.0) sec INR (<1.2) APTT (22.0-30.0) sec Sodium (137-145) mmol/L Carbon Dioxide (22-30) mmol/L Creatinine (0.52-1.04) mg/dL Glucose (74-99) mg/dL POC Glucose (mg/dL) 203 H (75-99) mg/dL Calcium (8.4-10.2) mg/dL Assessment and Plan Assessment: Impression 1. Acute kidney injury secondary to prerenal improved with hydration. Creatinine is down to 1.15. 2. Mild non-gap acidosis bicarb of 20., May be secondary to the IV normal saline. 3. Diabetes mellitus blood sugars 201-2203 this morning. 4. Status post laparoscopic colectomy for cecal mass dated 06/10/2018 yesterday. 5. Systolic dysfunction ejection fraction 35-40%. Compensated Recommendation. 1 no changes in medications., 2. Currently on D5 with 20 mg of KCl at 75 mL an hour., can maintain this.
[2018-06-11 16:49] LABS: Glucose,Whole Blood 141 mg/dL (75-99)
[2018-06-11] MEDS ORDERED: HEPARIN SOD,PORK IN 0.45% NACL 25,000 UNIT in 0.45% NACL 1 500ML.BAG IV SCH (18:00)
[2018-06-11] MEDS: WARFARIN 5 MG TAB PO SCH (18:02)
[2018-06-11 19:17] LABS: INR 2.6 (<1.2); Prothrombin Time 23.6 sec (9.0-12.0)
[2018-06-11] MEDS: ATORVASTATIN 20 MG TAB PO SCH (19:45)
[2018-06-11 20:52] LABS: Glucose,Whole Blood 175 mg/dL (75-99)
[2018-06-11] MEDS: INSULIN DETEMIR 100 UNIT/ML 10 ML VIAL SQ SCH (21:19)
[2018-06-12] MEDS: D5-0.45% NACL WITH KCL 20MEQ/L 1,000 ML IV SCH ×2 (00:25→15:51)
[2018-06-12] MEDS: ACETAMINOPHEN TAB 325 MG TAB PO PRN ×3 (04:28→20:13)
[2018-06-12 05:48] LABS: Glucose,Whole Blood 135 mg/dL (75-99)
[2018-06-12 06:50] LABS: INR 3.4 (<1.2); Partial Thromboplastin Time 63.1 sec (22.0-30.0); Prothrombin Time 30.5 sec (9.0-12.0)
[2018-06-12] MEDS: INSULIN ASPART 100 UNIT/ML 1 ML 10 ML VIAL SQ SCH ×4 (07:01→20:39)
[2018-06-12 07:09] LABS: Albumin 3.1 g/dL (3.5-5.0); Calcium 8.4 mg/dL (8.4-10.2); Potassium 4.5 mmol/L (3.5-5.1); Total Bilirubin 1.5 mg/dL (0.2-1.3)
[2018-06-12 07:13] LABS: Anisocytosis Slight; Basophils % (A) 0 %; Eosinophils # (A) 0.1 k/uL (0-0.7); Eosinophils % (A) 1 %; HCT 25.4 % (34.0-46.0); HGB 8.1 gm/dL (11.4-16.0); Hypochromasia Moderate; Lymphocytes # (A) 0.8 k/uL (1.0-4.8); Lymphocytes % (A) 11 %; MCH 27.4 pg (25.0-35.0); MCHC 31.8 g/dL (31.0-37.0); MCV 86.1 fL (80.0-100.0); Monocytes # (A) 0.6 k/uL (0-1.0); Monocytes % (A) 8 %; Neutrophils % (A) 77 %; Platelet Count 209 k/uL (150-450); Poikilocytosis Slight; RBC 2.95 m/uL (3.80-5.40); RDW 19.6 % (11.5-15.5); WBC 7.7 k/uL (3.8-10.6)
[2018-06-12] MEDS: CHOLECALCIFEROL 1,000 UNIT TAB PO SCH (07:38)
[2018-06-12] MEDS: hydrALAZINE HCL 25 MG TAB PO SCH ×2 (07:38→20:31)
[2018-06-12] MEDS: ATENOLOL 25 MG TAB PO SCH ×2 (07:39→20:32)
[2018-06-12] MEDS: PANTOPRAZOLE 40 MG TABLET PO SCH ×2 (07:39→20:30)
[2018-06-12] MEDS: MORPHINE SULFATE 2 MG/ML SYRINGE IVP PRN ×4 (07:44→22:21)
[2018-06-12] MEDS: WARFARIN 5 MG TAB PO SCH (09:06)
--- NOTE | 2018-06-12 10:17 | P.PN ---
Subjective Progress Note Date: 06/12/18 Principal diagnosis: Colon cancer Patient feels well today. White blood cell count 7.7, hemoglobin 8.1. INR today is 3.4. She still on her heparin drip. Patient is tolerating clears. No bowel movement. Positive flatus. Objective - Vital Signs Vital signs: Vital Signs Temp 97.5 F L 06/12/18 07:36 Pulse 85 06/12/18 07:36 Resp 16 06/12/18 07:36 BP 127/75 06/12/18 07:36 Pulse Ox 97 06/12/18 07:36 Intake & Output 06/11/18 06/12/18 06/12/18 18:59 06:59 18:59 Intake Total 970 230.7 1304.9 Output Total 662 600 Balance 308 -369.3 1304.9 Weight 75.9 kg Intake: IV 10 Invasive Line 2 10 Intake, IV Titration 230.7 864.9 Amount D5-0.45% NaCl with KCl 825 20Meq/l 1,000 ml @ 75 mls /hr IV .[id number] [facility] Rx#: [id number] Heparin Sod,Pork in 0.45% 230.7 39.9 NaCl 25,000 unit In 0.45 % NaCl 1 500ml.bag @ 12 UNITS/KG/HR 18 mls/hr IV .Q24H [facility] Rx#:[id number] Oral 960 440 Output: Urine 400 600 Post Void Residual 262 Other: Voiding Method Toilet Toilet # Voids 1 2 2 - Exam Abdomen: Soft, nondistended, incision clean and dry - Labs CBC & Chem 7: 06/12/18 06:12 06/12/18 06:12 Labs: Abnormal Lab Results - Last 24 Hours (Table) 06/11/18 06/11/18 06/11/18 Range/Units 11:25 16:36 18:12 RBC (3.80-5.40) m/uL Hgb (11.4-16.0) gm/dL Hct (34.0-46.0) % RDW (11.5-15.5) % Lymphocytes # (1.0-4.8) k/uL PT 23.6 H (9.0-12.0) sec INR 2.6 H (<1.2) APTT (22.0-30.0) sec Sodium (137-145) mmol/L Carbon Dioxide (22-30) mmol/L BUN (7-17) mg/dL Creatinine (0.52-1.04) mg/dL Glucose (74-99) mg/dL POC Glucose (mg/dL) 203 H 141 H (75-99) mg/dL Total Bilirubin (0.2-1.3) mg/dL Total Protein (6.3-8.2) g/dL Albumin (3.5-5.0) g/dL 06/11/18 06/11/18 06/12/18 Range/Units 20:49 23:52 05:47 RBC (3.80-5.40) m/uL Hgb (11.4-16.0) gm/dL Hct (34.0-46.0) % RDW (11.5-15.5) % Lymphocytes # (1.0-4.8) k/uL PT (9.0-12.0) sec INR (<1.2) APTT 62.9 H (22.0-30.0) sec Sodium (137-145) mmol/L Carbon Dioxide (22-30) mmol/L BUN (7-17) mg/dL Creatinine (0.52-1.04) mg/dL Glucose (74-99) mg/dL POC Glucose (mg/dL) 175 H 135 H (75-99) mg/dL Total Bilirubin (0.2-1.3) mg/dL Total Protein (6.3-8.2) g/dL Albumin (3.5-5.0) g/dL 06/12/18 06/12/18 06/12/18 Range/Units 06:12 06:12 06:12 RBC 2.95 L (3.80-5.40) m/uL Hgb 8.1 L (11.4-16.0) gm/dL Hct 25.4 L (34.0-46.0) % RDW 19.6 H (11.5-15.5) % Lymphocytes # 0.8 L (1.0-4.8) k/uL PT 30.5 H (9.0-12.0) sec INR 3.4 H (<1.2) APTT 63.1 H (22.0-30.0) sec Sodium 135 L (137-145) mmol/L Carbon Dioxide 19 L (22-30) mmol/L BUN 18 H (7-17) mg/dL Creatinine 1.07 H (0.52-1.04) mg/dL Glucose 128 H (74-99) mg/dL POC Glucose (mg/dL) (75-99) mg/dL Total Bilirubin 1.5 H (0.2-1.3) mg/dL Total Protein 6.0 L (6.3-8.2) g/dL Albumin 3.1 L (3.5-5.0) g/dL Assessment and Plan (1) Colon cancer Narrative/Plan: Increase activity. Stop IV heparin. Begin increasing diet. Hold today's Coumadin. Current Visit: Yes Status: Acute Code(s): C18.9 - MALIGNANT NEOPLASM OF COLON, UNSPECIFIED SNOMED Code(s): 017768594
[2018-06-12 11:26] LABS: Glucose,Whole Blood 164 mg/dL (75-99)
[2018-06-12] MEDS: ALVIMOPAN 12 MG CAPSULE PO SCH ×2 (12:25→21:28)
--- NOTE | 2018-06-12 12:28 | P.PN ---
Subjective Mrs. Costa is a pleasant 78-year-old female status post aortic and mitral valve replacement, history of chronic persistent atrial fibrillation recently found to have a cecal mass. She underwent laparoscopic colectomy Wednesday. She is seen resting comfortably in bed in mild abdominal discomfort. She states she has not had a bowel movement yet and is not currently passing gas. She denies symptoms of chest pain, shortness of breath, dizziness, palpitations, nausea or diaphoresis. She was initiated back on Coumadin per primary care team last night. Laboratory data reviewed, hemoglobin 8.1, platelets 209, INR 3.4, sodium 135, potassium 4.5, creatinine 1.09. Blood pressure 127/75 heart rate 85 afebrile maintaining oxygen saturation on room air. Objective - Vital Signs Vital signs: Vital Signs Temp 97.5 F L 06/12/18 07:36 Pulse 85 06/12/18 07:36 Resp 16 06/12/18 07:36 BP 127/75 06/12/18 07:36 Pulse Ox 97 06/12/18 07:36 Intake & Output 06/11/18 06/12/18 06/12/18 18:59 06:59 18:59 Intake Total 970 230.7 1304.9 Output Total 662 600 Balance 308 -369.3 1304.9 Weight 75.9 kg Intake: IV 10 Invasive Line 2 10 Intake, IV Titration 230.7 864.9 Amount D5-0.45% NaCl with KCl 825 20Meq/l 1,000 ml @ 75 mls /hr IV .[id number] [facility] Rx#: [id number] Heparin Sod,Pork in 0.45% 230.7 39.9 NaCl 25,000 unit In 0.45 % NaCl 1 500ml.bag @ 12 UNITS/KG/HR 18 mls/hr IV .Q24H [facility] Rx#:[id number] Oral 960 440 Output: Urine 400 600 Post Void Residual 262 Other: Voiding Method Toilet Toilet Toilet # Voids 1 2 2 - Exam GENERAL: Well-appearing, well-nourished and in no acute distress. NECK: Supple without JVD or thyromegaly. LUNGS: Breath sounds clear to auscultation bilaterally. Respiration equal and unlabored. No wheezes, rales or rhonchi. HEART: Irregular rate and rhythm with prosthetic aortic and mitral valve sounds and systolic ejection murmur at the base, no rubs or gallops. S1 and S2 heard. EXTREMITIES: Normal range of motion, no edema. No clubbing or cyanosis. Peripheral pulses intact. - Labs CBC & Chem 7: 06/12/18 06:12 06/12/18 06:12 Labs: Abnormal Lab Results - Last 24 Hours (Table) 06/11/18 06/11/18 06/11/18 Range/Units 16:36 18:12 20:49 RBC (3.80-5.40) m/uL Hgb (11.4-16.0) gm/dL Hct (34.0-46.0) % RDW (11.5-15.5) % Lymphocytes # (1.0-4.8) k/uL PT 23.6 H (9.0-12.0) sec INR 2.6 H (<1.2) APTT (22.0-30.0) sec Sodium (137-145) mmol/L Carbon Dioxide (22-30) mmol/L BUN (7-17) mg/dL Creatinine (0.52-1.04) mg/dL Glucose (74-99) mg/dL POC Glucose (mg/dL) 141 H 175 H (75-99) mg/dL Total Bilirubin (0.2-1.3) mg/dL Total Protein (6.3-8.2) g/dL Albumin (3.5-5.0) g/dL 06/11/18 06/12/18 06/12/18 Range/Units 23:52 05:47 06:12 RBC 2.95 L (3.80-5.40) m/uL Hgb 8.1 L (11.4-16.0) gm/dL Hct 25.4 L (34.0-46.0) % RDW 19.6 H (11.5-15.5) % Lymphocytes # 0.8 L (1.0-4.8) k/uL PT (9.0-12.0) sec INR (<1.2) APTT 62.9 H (22.0-30.0) sec Sodium (137-145) mmol/L Carbon Dioxide (22-30) mmol/L BUN (7-17) mg/dL Creatinine (0.52-1.04) mg/dL Glucose (74-99) mg/dL POC Glucose (mg/dL) 135 H (75-99) mg/dL Total Bilirubin (0.2-1.3) mg/dL Total Protein (6.3-8.2) g/dL Albumin (3.5-5.0) g/dL 06/12/18 06/12/18 06/12/18 Range/Units 06:12 06:12 11:22 RBC (3.80-5.40) m/uL Hgb (11.4-16.0) gm/dL Hct (34.0-46.0) % RDW (11.5-15.5) % Lymphocytes # (1.0-4.8) k/uL PT 30.5 H (9.0-12.0) sec INR 3.4 H (<1.2) APTT 63.1 H (22.0-30.0) sec Sodium 135 L (137-145) mmol/L Carbon Dioxide 19 L (22-30) mmol/L BUN 18 H (7-17) mg/dL Creatinine 1.07 H (0.52-1.04) mg/dL Glucose 128 H (74-99) mg/dL POC Glucose (mg/dL) 164 H (75-99) mg/dL Total Bilirubin 1.5 H (0.2-1.3) mg/dL Total Protein 6.0 L (6.3-8.2) g/dL Albumin 3.1 L (3.5-5.0) g/dL Assessment and Plan Assessment: ASSESSMENT Cecal mass status post laparoscopic colectomy Anemia Status post prosthetic aortic and mitral valve replacement Chronic persistent atrial fibrillation on long-term anticoagulation Diabetes mellitus Supratherapeutic INR. PLAN Heparin has been discontinued and coumadin resumed. Dosing per pharmacy. Continue atenolol 25 mg twice a day, atorvastatin 20 mg daily and hydralazine 25 mg twice a day. Further recommendations to follow. Nurse Practitioner note has been reviewed, I agree with a documented findings and plan of care. Patient was seen and examined.
[2018-06-12 16:16] LABS: Glucose,Whole Blood 142 mg/dL (75-99)
[2018-06-12] MEDS ORDERED: WARFARIN 0.5 MG TAB PO ONE (18:00)
--- NOTE | 2018-06-12 18:20 | PN ---
PROGRESS NOTE DATE OF SERVICE: June 12, 2018. PRESENTING COMPLAINT: Tired. INTERVAL HISTORY: This is a patient with multiple medical problems, who has got chronic abdominal pain and is felt to be functional. The patient also had acute renal failure, felt to be prerenal, which actually is improved. The patient is also being followed by Cardiology. Has persistent atrial fibrillation. Anticoagulation was resumed. The patient had surgery on June 10, 2018 with right colectomy. 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 REVIEW OF SYSTEMS: Done for constitutional, cardiovascular, GI, pulmonary and relevant findings as above. The patient did tolerate some diet. Did have a bowel movement yesterday. CURRENT MEDICATIONS: Reviewed that include Entereg, Tenormin, hydralazine, Levemir. PHYSICAL EXAMINATION: VITAL SIGNS: Temperature 97.7, pulse 75, respirations 18, blood pressure 137/75, pulse ox 96% on room air. GENERAL APPEARANCE: Sitting up awake. EYES: Pupils equal. Conjunctivae pale. HEENT: External appearance of nose and ears normal. Oral cavity normal. NECK: JVD not raised. Mass not palpable. RESPIRATORY effort normal. LUNGS: Diminished breath sounds. CARDIOVASCULAR: Heart sounds irregular. No edema. ABDOMEN: Mild tenderness. No guarding or rigidity. Soft. PSYCH: Alert and oriented x3. Mood and affect normal. INVESTIGATIONS: White count 7.7, hemoglobin 8.1, INR 3.4, potassium 4.5, BUN 18, creatinine 1.07, down from 4.08, albumin 3.1. ASSESSMENT: 1. 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 2. Chronic congestive heart failure from systolic dysfunction, ejection fraction 35%. 3. Persistent atrial flutter, pacemaker in place. 4. 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 5. Severe tricuspid regurgitation, moderate mitral regurgitation, nonrheumatic. 6. Diabetes mellitus type 2, chronically on insulin. 7. Essential hypertension. 8. Hyperlipidemia. 9. Acute renal failure likely prerenal, creatinine coming down. 10.Peripheral neuropathy from diabetes. 11.Recent hospitalization for acute osteomyelitis of the left 2nd toe. Will have Dr. Johnson follow up on the same. 12.Obesity; BMI 31.8. 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 14.Acute on chronic blood-loss anemia status post 1 unit of packed RBCs. 15.Essential hypertension. PLAN: At this point, continue current medication and treatment plan. INR is being followed per pharmacy. The patient's Accu-Cheks are noted. The patient is mildly acidotic. We will add sodium bicarbonate. We will have Dr. Johnson see the patient who is getting IV antibiotics for osteomyelitis of left 2nd toe. MMODL / IJN: [id number] /
[2018-06-12] MEDS: ATORVASTATIN 20 MG TAB PO SCH (20:31)
[2018-06-12 20:34] LABS: Glucose,Whole Blood 191 mg/dL (75-99)
[2018-06-12] MEDS: INSULIN DETEMIR 100 UNIT/ML 10 ML VIAL SQ SCH (21:27)
[2018-06-13] MEDS: D5-0.45% NACL WITH KCL 20MEQ/L 1,000 ML IV SCH (03:50)
[2018-06-13] MEDS: MORPHINE SULFATE 2 MG/ML SYRINGE IVP PRN ×4 (03:50→22:20)
[2018-06-13 05:35] LABS: Glucose,Whole Blood 143 mg/dL (75-99)
[2018-06-13 06:30] LABS: Anisocytosis Slight; Basophils % (A) 0 %; Eosinophils # (A) 0.2 k/uL (0-0.7); Eosinophils % (A) 2 %; HCT 26.2 % (34.0-46.0); HGB 7.9 gm/dL (11.4-16.0); Hypochromasia Marked; Lymphocytes # (A) 0.7 k/uL (1.0-4.8); Lymphocytes % (A) 10 %; MCV 86.8 fL (80.0-100.0); Mean Platelet Volume 6.5; Monocytes # (A) 0.6 k/uL (0-1.0); Monocytes % (A) 8 %; Neutrophils # (A) 5.1 k/uL (1.3-7.7); Neutrophils % (A) 76 %; Platelet Count 234 k/uL (150-450); Poikilocytosis Slight; RBC 3.02 m/uL (3.80-5.40); RDW 19.4 % (11.5-15.5); WBC 6.6 k/uL (3.8-10.6)
[2018-06-13 06:51] LABS: Albumin 3.3 g/dL (3.5-5.0); Calcium 8.8 mg/dL (8.4-10.2); Total Bilirubin 1.4 mg/dL (0.2-1.3); Total Protein 6.2 g/dL (6.3-8.2)
[2018-06-13 06:57] LABS: INR 4.6 (<1.2); Partial Thromboplastin Time 36.1 sec (22.0-30.0); Prothrombin Time 41.6 sec (9.0-12.0)
[2018-06-13] MEDS: INSULIN ASPART 100 UNIT/ML 1 ML 10 ML VIAL SQ SCH ×4 (07:00→22:25)
--- NOTE | 2018-06-13 08:52 | P.PN ---
Subjective Patient is seen in follow-up for acute kidney injury on chronic kidney disease. Patient has chronic kidney disease stage III with creatinine in the range of 1.1-1.7 in April 2018. Creatinine was up to 4.08 on admission and was down to 0.9 today. Complaining of abdominal discomfort. Denies any melena or hematochezia. No diarrhea. Admits to good urine output. She underwent a colonoscopy on June 09 and was noted to have an ulcerated cecal mass. She underwent a right-sided laparoscopic colectomy on June 10. She is on a full liquid diet. Vital signs are stable. General: The patient appeared well nourished and normally developed. HEENT: Head exam is unremarkable. Neck is without jugular venous distension. LUNGS: Lungs are clear to auscultation and percussion. Breath sounds decreased. HEART: Rate and Rhythm are regular. First and second heart sounds normal. No murmurs, rubs or gallops. ABDOMEN: Abdominal exam reveals normal bowel sounds. Non-tender and non- distended. No evidence of peritonitis. EXTREMITITES: No edema. Objective - Vital Signs Vital signs: Vital Signs Temp 96.8 F L 06/13/18 04:00 Pulse 68 06/13/18 04:00 Resp 16 06/13/18 04:00 BP 148/67 06/13/18 04:00 Pulse Ox 96 06/13/18 04:00 Intake & Output 06/12/18 06/13/18 06/13/18 18:59 06:59 18:59 Intake Total 1544.9 Output Total 600 300 Balance 944.9 -300 Weight 79.8 kg Intake: Intake, IV Titration 864.9 Amount D5-0.45% NaCl with KCl 825 20Meq/l 1,000 ml @ 75 mls /hr IV .[id number] DAI Rx#: [id number] Heparin Sod,Pork in 0.45% 39.9 NaCl 25,000 unit In 0.45 % NaCl 1 500ml.bag @ 12 UNITS/KG/HR 18 mls/hr IV .Q24H DAI Rx#:[id number] Oral 680 Output: Urine 600 300 Other: Voiding Method Toilet Toilet # Voids 2 - Labs CBC & Chem 7: 06/13/18 06:03 06/13/18 06:03 Labs: Abnormal Lab Results - Last 24 Hours (Table) 06/12/18 06/12/18 06/12/18 Range/Units 11:22 16:08 20:30 RBC (3.80-5.40) m/uL Hgb (11.4-16.0) gm/dL Hct (34.0-46.0) % MCHC (31.0-37.0) g/dL RDW (11.5-15.5) % Lymphocytes # (1.0-4.8) k/uL PT (9.0-12.0) sec INR (<1.2) APTT (22.0-30.0) sec Sodium (137-145) mmol/L Carbon Dioxide (22-30) mmol/L Glucose (74-99) mg/dL POC Glucose (mg/dL) 164 H 142 H 191 H (75-99) mg/dL Total Bilirubin (0.2-1.3) mg/dL Total Protein (6.3-8.2) g/dL Albumin (3.5-5.0) g/dL 06/13/18 06/13/18 06/13/18 Range/Units 05:33 06:03 06:03 RBC 3.02 L (3.80-5.40) m/uL Hgb 7.9 L (11.4-16.0) gm/dL Hct 26.2 L (34.0-46.0) % MCHC 30.0 L (31.0-37.0) g/dL RDW 19.4 H (11.5-15.5) % Lymphocytes # 0.7 L (1.0-4.8) k/uL PT (9.0-12.0) sec INR (<1.2) APTT (22.0-30.0) sec Sodium 133 L (137-145) mmol/L Carbon Dioxide 19 L (22-30) mmol/L Glucose 129 H (74-99) mg/dL POC Glucose (mg/dL) 143 H (75-99) mg/dL Total Bilirubin 1.4 H (0.2-1.3) mg/dL Total Protein 6.2 L (6.3-8.2) g/dL Albumin 3.3 L (3.5-5.0) g/dL 07/30/18 Range/Units 06:03 RBC (3.80-5.40) m/uL Hgb (11.4-16.0) gm/dL Hct (34.0-46.0) % MCHC (31.0-37.0) g/dL RDW (11.5-15.5) % Lymphocytes # (1.0-4.8) k/uL PT 41.6 H (9.0-12.0) sec INR 4.6 H (<1.2) APTT 36.1 H (22.0-30.0) sec Sodium (137-145) mmol/L Carbon Dioxide (22-30) mmol/L Glucose (74-99) mg/dL POC Glucose (mg/dL) (75-99) mg/dL Total Bilirubin (0.2-1.3) mg/dL Total Protein (6.3-8.2) g/dL Albumin (3.5-5.0) g/dL Assessment and Plan Plan: Assessment: 1. Nonoliguric acute kidney injury mostly prerenal improving with IV hydration. Creatinine was over 4 on admission and is down to 0.9 today. Urinalysis is quite benign. 2. Chronic kidney disease stage III with baseline creatinine in the range of 1.1-1.7 in April 2018. 3. Hyperkalemia on admission. Improved with medical management. Currently receiving IV fluids with potassium supplementation. 4. Severe symptomatic anemia status post blood transfusion this admission. Status post 3 doses of IV iron. Concern for GI bleed. Iron deficiency noted. Status post colonoscopy June 09 which revealed an ulcerated cecal mass as well as a sigmoid colon polyp along with small internal hemorrhoids. Status post right-sided colectomy on June 10. 5. Systolic CHF with ejection fraction of 35-40%. Currently compensated. 6. Insulin-dependent diabetes mellitus. 7. History of atrial fibrillation. 8. Hypertension with chronic kidney disease. Controlled. 9. LE edema. Improved. Status post IV Lasix June 07. 10. Hyponatremia secondary to hypotonic fluid infusion. Plan: Maintain Aranesp. Avoid nephrotoxins. Continue to hold Cozaar and Aldactone for now. Repeat electrolytes in the morning. Discontinue half normal saline with potassium supplementation. Start normal saline at 50 mL an hour for maintenance fluids. Diet to be advanced per surgery.
[2018-06-13] MEDS: DARBEPOETIN ALFA 40 MCG/0.4 ML SYRINGE SQ SCH (09:12)
[2018-06-13] MEDS: SODIUM CHLORIDE 0.9% 1,000 ML IV SCH ×2 (09:18→22:26)
[2018-06-13] MEDS: ATENOLOL 25 MG TAB PO SCH ×2 (10:22→22:29)
[2018-06-13] MEDS: hydrALAZINE HCL 25 MG TAB PO SCH ×2 (10:22→22:29)
[2018-06-13] MEDS: PANTOPRAZOLE 40 MG TABLET PO SCH ×2 (10:23→22:29)
[2018-06-13] MEDS: CHOLECALCIFEROL 1,000 UNIT TAB PO SCH (10:23)
--- NOTE | 2018-06-13 11:22 | CONS ---
CONSULTATION REASON FOR CONSULTATION: Left second toe osteomyelitis. HISTORY OF PRESENT ILLNESS: The patient is an 78-year-old, female who is well known to my service in a patient who did have a left second toe lesion suspicious for osteomyelitis while the patient was admitted at the [facility]. She was initiated with cefazolin/Rocephin as the cultures were negative. Subsequently switched over to vancomycin because of worsening on the x-ray finding that will be transitioned to the daptomycin because of elevated creatinine. The patient has finished antibiotic therapy as of 05/26 after receiving more than 8 weeks of antibiotic therapy and the patient did not want to continue any further. At that time, her left second toe swelling and redness has resolved. She was not complaining of any pain and her CRP normalized. The patient is now being admitted to the [facility] on 06/03/2018, almost 10 days ago. The patient presented with rectal bleed. The patient subsequently has been evaluated by GI Services and the patient did have a colonoscopy with biopsy, was noticed to have ulcerated cecal mass, status post multiple biopsies. 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 The patient did have a CT of chest, abdomen and pelvis, which did shows aneurysmal dilatation of ascending thoracic aorta, cardiomegaly, cholelithiasis and fullness within the proximal ascending colon. Subsequently has been taken to the OR by Dr. Ken on 06/10/2018 where the patient did have a laparoscopic right colectomy and laparoscopic lysis of adhesion. The patient currently denies having any abdominal pain. She denies having any nausea, vomiting. No fever. No chills. I was asked to see the patient regarding follow up on her left second toe osteomyelitis. The patient currently denies having any pain to the left second toe area. The swelling and redness has resolved. Denies having any open wound or any drainage. REVIEW OF SYSTEMS: CONSTITUTIONAL: Positive for weakness, but no high-grade fever. EYES: No complaint. ENT: No complaint. RESPIRATORY: Mild shortness of breath. No cough. CARDIOVASCULAR: No complaint. GENITOURINARY: No complaint. GASTROINTESTINAL: As per HPI. MUSCULOSKELETAL: As per HPI. INTEGUMENTARY: No complaint. PSYCHOLOGICAL: No complaint. ENDOCRINE: No complaint. NEUROLOGIC: No complaint. PAST MEDICAL HISTORY: Her past medical history is significant for atrial fibrillation, heart failure, diabetes mellitus, hypertension, hyperlipidemia, renal insufficiency, rheumatic fever, left second toe osteomyelitis. PAST SURGICAL HISTORY: Appendectomy, heart valve replacement, hysterectomy and pacemaker placement. SOCIAL HISTORY: No history of smoking, drinking or drug use. FAMILY HISTORY: No pertinent findings noticed. ALLERGIES: Allergies to IV CONTRAST DYE. MEDICATION: Mediations currently include the patient is on Tylenol, Tenormin, Lipitor, vitamin D3, Aricept, heparin, hydralazine, NovoLog, Levemir, melatonin, Reglan, Narcan, Zofran, Protonix, and Coumadin. PHYSICAL EXAMINATION: On examination, her blood pressure is 152/73 with a pulse of 70, temperature 96.7. She is 97% on room air. General description is an elderly female up in the bed in no distress. No tachypnea or accessory muscle of respiration use. HEENT examination shows slight pallor. No scleral icterus. Oral mucous membrane is dry. No pharyngeal erythema or thrush. NECK: Trachea central. No thyromegaly. LUNGS: Unlabored breathing, clear to auscultation anteriorly. No wheeze or crackle. HEART: S1, S2. Regular rate and rhythm. ABDOMEN: Soft, no tenderness. No guarding or rigidity. EXTREMITIES: No edema of feet. Examination of the left foot second toe currently with no significant swelling, redness. No warmth to touch. No open wound or any drainage. NEUROLOGICAL: Patient is awake, alert, oriented x3. Mood and affect normal. LABS: Hemoglobin is 8.9, white count 7.7, BUN of 18, creatinine 1.07. INR is 3.4. Did have a UA that was negative. DIAGNOSTIC IMPRESSION AND PLAN: Patient with a history of left second toe osteomyelitis that was adequately treated. Patient has been currently off antibiotic therapy for a couple of weeks now and the patient currently did not have any recurrence of any swelling, redness or pain to her left second toe area. Clinically doubt any active osteomyelitis or any evidence of active infection. If that was the case she should have of it by now. PLAN: 1. Currently, no further management needed for her left second toe osteomyelitis, seemed to have been adequately treated. The patient at the end of her IV antibiotic therapy was not interested in further workup and currently did not have any symptoms. 2. The patient will be monitored closely. If any change in her clinical condition, appropriate culture will be obtained before starting her on antibiotics. Thank you for this consultation. Will follow this patient along with you. REUBEN / IJN: [id number] /
[2018-06-13 11:40] LABS: Glucose,Whole Blood 131 mg/dL (75-99)
[2018-06-13] MEDS: ALVIMOPAN 12 MG CAPSULE PO SCH ×2 (11:43→22:28)
[2018-06-13] MEDS: ACETAMINOPHEN TAB 325 MG TAB PO PRN ×2 (11:44→22:22)
--- NOTE | 2018-06-13 13:15 | P.PN ---
Subjective Progress Note Date: 06/13/18 78-year-old female seen and examined sitting up on the edge of the bed patient reports having "a bloated feeling no appetite. Patient states has not had a bowel movement belching but not passing gas. Did note the INR is 4.6. Surgical dressings dry continues to have tenderness right lower quadrant no bowel movement few hypoactive bowel tones Patient is postop June 10 laparoscopic right colectomy lysis of adhesions for right colon cancer Objective - Vital Signs Vital signs: Vital Signs Temp 96.7 F L 06/13/18 08:55 Pulse 70 06/13/18 08:55 Resp 16 06/13/18 08:55 BP 152/73 06/13/18 08:55 Pulse Ox 97 06/13/18 08:55 Intake & Output 06/12/18 06/13/18 06/13/18 18:59 06:59 18:59 Intake Total 1544.9 Output Total 600 300 0 Balance 944.9 -300 0 Weight 79.8 kg 79.8 kg Intake: Intake, IV Titration 864.9 Amount D5-0.45% NaCl with KCl 825 20Meq/l 1,000 ml @ 75 mls /hr IV .[id number] DAI Rx#: [id number] Heparin Sod,Pork in 0.45% 39.9 NaCl 25,000 unit In 0.45 % NaCl 1 500ml.bag @ 12 UNITS/KG/HR 18 mls/hr IV .Q24H DAI Rx#:[id number] Oral 680 Output: Urine 600 300 Stool 0 Other: Voiding Method Toilet Toilet Toilet # Voids 2 - Exam Physical exam 78-year-old female sitting up on the edge of the bed oriented 3 reports having right lower quadrant pain Lungs diminished at the bases otherwise adequate air movement Heart S1-S2 audible irregular Abdomen surgical dressings dry mild tenderness right lower quadrant few hypoactive bowel tones no stool no nausea no vomiting currently tolerating a clear liquid diet Extremities no edema - Labs CBC & Chem 7: 06/13/18 06:03 06/13/18 06:03 Labs: Abnormal Lab Results - Last 24 Hours (Table) 06/12/18 06/12/18 06/13/18 Range/Units 16:08 20:30 05:33 RBC (3.80-5.40) m/uL Hgb (11.4-16.0) gm/dL Hct (34.0-46.0) % MCHC (31.0-37.0) g/dL RDW (11.5-15.5) % Lymphocytes # (1.0-4.8) k/uL PT (9.0-12.0) sec INR (<1.2) APTT (22.0-30.0) sec Sodium (137-145) mmol/L Carbon Dioxide (22-30) mmol/L Glucose (74-99) mg/dL POC Glucose (mg/dL) 142 H 191 H 143 H (75-99) mg/dL Total Bilirubin (0.2-1.3) mg/dL Total Protein (6.3-8.2) g/dL Albumin (3.5-5.0) g/dL 06/13/18 06/13/18 06/13/18 Range/Units 06:03 06:03 06:03 RBC 3.02 L (3.80-5.40) m/uL Hgb 7.9 L (11.4-16.0) gm/dL Hct 26.2 L (34.0-46.0) % MCHC 30.0 L (31.0-37.0) g/dL RDW 19.4 H (11.5-15.5) % Lymphocytes # 0.7 L (1.0-4.8) k/uL PT 41.6 H (9.0-12.0) sec INR 4.6 H (<1.2) APTT 36.1 H (22.0-30.0) sec Sodium 133 L (137-145) mmol/L Carbon Dioxide 19 L (22-30) mmol/L Glucose 129 H (74-99) mg/dL POC Glucose (mg/dL) (75-99) mg/dL Total Bilirubin 1.4 H (0.2-1.3) mg/dL Total Protein 6.2 L (6.3-8.2) g/dL Albumin 3.3 L (3.5-5.0) g/dL 06/13/18 Range/Units 11:19 RBC (3.80-5.40) m/uL Hgb (11.4-16.0) gm/dL Hct (34.0-46.0) % MCHC (31.0-37.0) g/dL RDW (11.5-15.5) % Lymphocytes # (1.0-4.8) k/uL PT (9.0-12.0) sec INR (<1.2) APTT (22.0-30.0) sec Sodium (137-145) mmol/L Carbon Dioxide (22-30) mmol/L Glucose (74-99) mg/dL POC Glucose (mg/dL) 131 H (75-99) mg/dL Total Bilirubin (0.2-1.3) mg/dL Total Protein (6.3-8.2) g/dL Albumin (3.5-5.0) g/dL Assessment and Plan Assessment: Impression Chronic persistent atrial fibrillation on long-term anticoagulation Supratherapeutic INR 4.6 this morning Status post prosthetic aortic and mitral valve replacement Cecal mass status post laparoscopic colectomy History of left second toe osteomyelitis adequately treated Plan Would recommend holding Coumadin today INR 4.9 Monitor hemoglobin Increase activity as tolerated Continue postop surgical care DVT and GI prophylaxis Follow-up on pending path report Pain control Further surgical recommendations pending clinical course The above impression and plan of care have been discussed and directed by signing physician. Pauline Vu nurse practitioner acting as scribe for signing physician.
--- NOTE | 2018-06-13 14:56 | P.PN ---
Subjective Progress Note Date: 06/13/18 This is an 78-year-old female with known history of rheumatic heart disease status post aortic and mitral valve replacements performed in , history of chronic persistent atrial fibrillation, prior pacemaker implantation, severe pulmonary hypertension with moderate LV dysfunction who presented with dark stool. She had history of anemia and has been on iron but she stopped the iron for about a week in her stool remained black. She was seen in consultation yesterday by Dr. Winn. Patient is scheduled to undergo an EGD once her INR comes down to acceptable range. We will need to bridge the patient with IV heparin. She was seen and examined today, appears a little frustrated, denies any shortness of breath or difficulty breathing. She is sitting up in the chair at the time of our examination and has been encouraged to be up distance. 06/08/2018 Patient seen and examined this morning, early being prepped for her procedure today. INR today is 1.7, white blood cell count 5.3, hemoglobin 8.4, platelet count 201. Sodium 138, potassium 4.2, BUN 19, creatinine 1.3. Heparin drip has been initiated, patient will need to remain on a heparin drip because of her history of valve replacements. 06/13/2018 Patient now is status post laparoscopic right colectomy with lysis of adhesions for right colon cancer. She was seen and examined this morning, complaining of mild bloating and mild abdominal discomfort. She denies any shortness of breath , no chest discomfort. She was on IV heparin this morning, however her INR is coming back to be 4.6. Hemoglobin 7.9, sodium 133, potassium 5.0, BUN 15, creatinine 0.9. We will hold the Coumadin today, discontinue IV heparin. Objective - Vital Signs Vital signs: Vital Signs Temp 96.7 F L 06/13/18 08:55 Pulse 82 06/13/18 12:30 Resp 16 06/13/18 12:30 BP 124/61 06/13/18 12:30 Pulse Ox 95 06/13/18 12:30 Intake & Output 06/12/18 06/13/18 06/13/18 18:59 06:59 18:59 Intake Total 1544.9 Output Total 600 300 0 Balance 944.9 -300 0 Weight 79.8 kg 79.8 kg Intake: Intake, IV Titration 864.9 Amount D5-0.45% NaCl with KCl 825 20Meq/l 1,000 ml @ 75 mls /hr IV .[id number] DAI Rx#: [id number] Heparin Sod,Pork in 0.45% 39.9 NaCl 25,000 unit In 0.45 % NaCl 1 500ml.bag @ 12 UNITS/KG/HR 18 mls/hr IV .Q24H DAI Rx#:[id number] Oral 680 Output: Urine 600 300 Stool 0 Other: Voiding Method Toilet Toilet Toilet # Voids 2 - Exam PHYSICAL EXAMINATION: GENERAL: 78-year-old female in no acute distress at the time of my examination HEENT: Head is atraumatic, normocephalic. Pupils equal, round. Sclera anicteric. Conjunctiva are clear. Mucous membranes of the mouth are moist. Neck is supple. There is no elevated jugular venous pressure.] bruit is heard. HEART EXAMINATION: Heart S1 and S2 prosthetic aortic and mitral sound is heard, systolic murmur heard CHEST EXAMINATION: Lungs are clear to auscultation and precussion. No chest wall tenderness is noted on palpation or with deep breathing. ABDOMEN: Soft, mild bloating, generalized tenderness . Bowel sounds are heard. No organomegaly noted. EXTREMITIES: 2+ peripheral pulses with no evidence of peripheral edema and no calf tenderness noted. NEUROLOGIC patient is awake, alert and oriented X3. . - Labs CBC & Chem 7: 06/13/18 06:03 06/13/18 06:03 Labs: Abnormal Lab Results - Last 24 Hours (Table) 06/12/18 06/12/18 06/13/18 Range/Units 16:08 20:30 05:33 RBC (3.80-5.40) m/uL Hgb (11.4-16.0) gm/dL Hct (34.0-46.0) % MCHC (31.0-37.0) g/dL RDW (11.5-15.5) % Lymphocytes # (1.0-4.8) k/uL PT (9.0-12.0) sec INR (<1.2) APTT (22.0-30.0) sec Sodium (137-145) mmol/L Carbon Dioxide (22-30) mmol/L Glucose (74-99) mg/dL POC Glucose (mg/dL) 142 H 191 H 143 H (75-99) mg/dL Total Bilirubin (0.2-1.3) mg/dL Total Protein (6.3-8.2) g/dL Albumin (3.5-5.0) g/dL 06/13/18 06/13/18 06/13/18 Range/Units 06:03 06:03 06:03 RBC 3.02 L (3.80-5.40) m/uL Hgb 7.9 L (11.4-16.0) gm/dL Hct 26.2 L (34.0-46.0) % MCHC 30.0 L (31.0-37.0) g/dL RDW 19.4 H (11.5-15.5) % Lymphocytes # 0.7 L (1.0-4.8) k/uL PT 41.6 H (9.0-12.0) sec INR 4.6 H (<1.2) APTT 36.1 H (22.0-30.0) sec Sodium 133 L (137-145) mmol/L Carbon Dioxide 19 L (22-30) mmol/L Glucose 129 H (74-99) mg/dL POC Glucose (mg/dL) (75-99) mg/dL Total Bilirubin 1.4 H (0.2-1.3) mg/dL Total Protein 6.2 L (6.3-8.2) g/dL Albumin 3.3 L (3.5-5.0) g/dL 06/13/18 Range/Units 11:19 RBC (3.80-5.40) m/uL Hgb (11.4-16.0) gm/dL Hct (34.0-46.0) % MCHC (31.0-37.0) g/dL RDW (11.5-15.5) % Lymphocytes # (1.0-4.8) k/uL PT (9.0-12.0) sec INR (<1.2) APTT (22.0-30.0) sec Sodium (137-145) mmol/L Carbon Dioxide (22-30) mmol/L Glucose (74-99) mg/dL POC Glucose (mg/dL) 131 H (75-99) mg/dL Total Bilirubin (0.2-1.3) mg/dL Total Protein (6.3-8.2) g/dL Albumin (3.5-5.0) g/dL Assessment and Plan Plan: Assessment and plan #1 GI bleeding, status post laparoscopic right colectomy with lysis of adhesions for right colon cancer #2 status post aortic and mitral valve replacement #3 nonischemic cardiomyopathy #4 hypertension #5 chronic persistent atrial fibrillation #6 chronic kidney disease #7 prior pacemaker Plan We will discontinue the IV heparin and hold Coumadin today. Check PT/INR in the morning. DNP note has been reviewed, I agree with a documented findings and plan of care. Patient was seen and examined.
--- NOTE | 2018-06-13 16:01 | PN ---
PROGRESS NOTE PRESENTING COMPLAINT: Tired. INTERVAL HISTORY: Patient had acute renal failure that is greatly improved. Also got persistent atrial fibrillation on anticoagulation. The patient also had right colectomy for a cecal mass. The patient has a cecal mass. The patient is on a full liquid diet. Has not had a bowel movement. Does feel a bit tired. REVIEW OF SYSTEMS: Done for constitutional, cardiovascular, GI, pulmonary; relevant findings as above. CURRENT MEDICATIONS: Reviewed that include Entereg, Tenormin, hydralazine, Levemir. PHYSICAL EXAMINATION: Temperature 96.7, pulse 72, respiration 16, blood pressure 152/73, pulse 97% on room air. GENERAL APPEARANCE: Sitting at the edge of the bed, tired-appearing. EYES: Pupils equal. Conjunctivae pale. HEENT: External appearance of nose and ears normal. Oral cavity normal. NECK: JVD not raised. Mass not palpable. RESPIRATORY: Effort, lungs decreased breath sounds. CARDIOVASCULAR: Heart sounds irregular. No edema. ABDOMEN: Dressing in place. Minimal tenderness. Bowel sounds sluggish. PSYCHIATRY: Alert and oriented x3. Mood and affect normal. INVESTIGATIONS: White count 6.6, hemoglobin 7.9, INR 4.6, potassium 5, BUN 15, creatinine 0.90. ASSESSMENT: 1. 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 2. Chronic congestive heart failure from systolic dysfunction, EF 35%. 3. Persistent atrial flutter, pacemaker in place. 4. 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 5. Severe tricuspid regurgitation, moderate mitral regurgitation, nonrheumatic. 6. Diabetes mellitus type 2, chronically on insulin. 7. Essential hypertension. 8. Hyperlipidemia. 9. Acute renal failure likely prerenal, now corrected. 10.Peripheral neuropathy from diabetes. 11.Recent hospitalization for acute osteomyelitis of left 2nd toe per Dr. Johnson. Antibiotic course is completed. 12.Obesity; BMI 31.8. 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 14.Acute on chronic blood loss anemia, likely from cecal mass, status post 1 unit of packed RBC. 15.Essential hypertension. 16.Iron deficiency anemia from above. PLAN: Continue current medication and treatment plan. Coumadin has been held. Care was discussed with the patient. Encouraged to ambulate. MMODL / IJN: [id number] /
[2018-06-13 16:35] LABS: Glucose,Whole Blood 150 mg/dL (75-99)
[2018-06-13] MEDS ORDERED: WARFARIN 0.5 MG TAB PO ONE (18:00)
[2018-06-13 20:39] LABS: Glucose,Whole Blood 113 mg/dL (75-99)
[2018-06-13] MEDS: INSULIN DETEMIR 100 UNIT/ML 10 ML VIAL SQ SCH (22:28)
[2018-06-13] MEDS: ATORVASTATIN 20 MG TAB PO SCH (22:28)
--- NOTE | 2018-06-13 23:33 | PN ---
PROGRESS NOTE DATE OF SERVICE: 06/13/2018. REASON FOR FOLLOWUP: Left second toe osteomyelitis. INTERVAL HISTORY: The patient is afebrile. He has been slightly upset. this morning. The patient's abdominal pain has no worsening. No nausea or vomiting. No diarrhea. Denies any pain to the left second toe area. EXAMINATION: Blood pressure 136/65, pulse 86, temperature 98.6, 93% on room air. GENERAL DESCRIPTION: An elderly female up in the chair in no distress. RESPIRATORY SYSTEM: Unlabored breathing. Clear to auscultation. HEART: S1, S2. Regular rate and rhythm. ABDOMEN: Soft. EXTREMITIES: Left second toe currently no swelling, no redness. LABS: White count 6.6, BUN of 15, creatinine 0.90. DIAGNOSTIC IMPRESSION AND PLAN: Patient with history of the left second toe osteomyelitis. Has been anticoagulated, currently with no pain, swelling or redness of the left second toe. Hence, we will hold on any systemic antibiotic workup at this point. Continue supportive care. MMODL / IJN: [id number] /
[2018-06-14 05:40] LABS: Glucose,Whole Blood 96 mg/dL (75-99)
[2018-06-14] MEDS: INSULIN ASPART 100 UNIT/ML 1 ML 10 ML VIAL SQ SCH ×4 (06:31→22:01)
[2018-06-14 06:32] LABS: Anisocytosis Slight; Basophils % (A) 1 %; Eosinophils # (A) 0.2 k/uL (0-0.7); Eosinophils % (A) 3 %; HCT 26.4 % (34.0-46.0); Hypochromasia Moderate; Lymphocytes # (A) 0.8 k/uL (1.0-4.8); Lymphocytes % (A) 15 %; MCH 25.9 pg (25.0-35.0); MCHC 30.3 g/dL (31.0-37.0); MCV 85.6 fL (80.0-100.0); Mean Platelet Volume 6.8; Microcytosis Slight; Monocytes # (A) 0.5 k/uL (0-1.0); Monocytes % (A) 9 %; Neutrophils # (A) 3.9 k/uL (1.3-7.7); Neutrophils % (A) 69 %; Platelet Count 253 k/uL (150-450); Poikilocytosis Slight; RBC 3.09 m/uL (3.80-5.40); RDW 19.5 % (11.5-15.5); WBC 5.7 k/uL (3.8-10.6)
[2018-06-14 06:41] LABS: INR 2.7 (<1.2); Prothrombin Time 24.6 sec (9.0-12.0)
[2018-06-14 07:00] LABS: Albumin 3.1 g/dL (3.5-5.0); Calcium 8.9 mg/dL (8.4-10.2); Magnesium 1.8 mg/dL (1.6-2.3); Potassium 4.7 mmol/L (3.5-5.1); Total Bilirubin 1.3 mg/dL (0.2-1.3); Total Protein 6.1 g/dL (6.3-8.2)
[2018-06-14] MEDS: hydrALAZINE HCL 25 MG TAB PO SCH ×2 (08:15→22:01)
[2018-06-14] MEDS: PANTOPRAZOLE 40 MG TABLET PO SCH ×2 (08:15→22:01)
[2018-06-14] MEDS: ATENOLOL 25 MG TAB PO SCH ×2 (08:16→22:01)
[2018-06-14] MEDS: MORPHINE SULFATE 2 MG/ML SYRINGE IVP PRN (08:16)
[2018-06-14] MEDS: ALVIMOPAN 12 MG CAPSULE PO SCH ×2 (08:16→22:01)
[2018-06-14] MEDS ORDERED: FUROSEMIDE 10 MG/ML 2 ML VIAL IV ONE (10:27)
--- NOTE | 2018-06-14 10:27 | P.PN ---
Subjective Patient is seen in follow-up for acute kidney injury on chronic kidney disease. Patient has chronic kidney disease stage III with creatinine in the range of 1.1-1.7 in April 2018. Creatinine was up to 4.08 on admission and now near 1. Denies any melena or hematochezia. No diarrhea. Admits to good urine output. She underwent a colonoscopy on June 09 and was noted to have an ulcerated cecal mass. She underwent a right-sided laparoscopic colectomy on June 10. She is on a full liquid diet. Still no bowel movement. Vital signs are stable. General: The patient appeared well nourished and normally developed. HEENT: Head exam is unremarkable. Neck is without jugular venous distension. LUNGS: Lungs are clear to auscultation and percussion. Breath sounds decreased. HEART: Rate and Rhythm are regular. First and second heart sounds normal. No murmurs, rubs or gallops. ABDOMEN: Abdominal exam reveals normal bowel sounds. Non-tender and non- distended. No evidence of peritonitis. EXTREMITITES: No edema. Objective - Vital Signs Vital signs: Vital Signs Temp 97.2 F L 06/14/18 04:00 Pulse 67 06/14/18 04:00 Resp 18 06/14/18 04:00 BP 109/65 06/14/18 04:00 Pulse Ox 95 06/14/18 04:00 Intake & Output 06/13/18 06/14/18 06/14/18 18:59 06:59 18:59 Intake Total 240 120 Output Total 0 0 Balance 240 120 Weight 79.8 kg 78 kg Intake: Oral 240 120 Output: Stool 0 0 Other: Voiding Method Toilet Toilet - Labs CBC & Chem 7: 06/14/18 06:02 06/14/18 06:02 Labs: Abnormal Lab Results - Last 24 Hours (Table) 06/13/18 06/13/18 06/13/18 Range/Units 11:19 16:20 20:38 RBC (3.80-5.40) m/uL Hgb (11.4-16.0) gm/dL Hct (34.0-46.0) % MCHC (31.0-37.0) g/dL RDW (11.5-15.5) % Lymphocytes # (1.0-4.8) k/uL PT (9.0-12.0) sec INR (<1.2) Sodium (137-145) mmol/L Chloride (98-107) mmol/L Carbon Dioxide (22-30) mmol/L POC Glucose (mg/dL) 131 H 150 H 113 H (75-99) mg/dL Total Protein (6.3-8.2) g/dL Albumin (3.5-5.0) g/dL 06/14/18 06/14/18 06/14/18 Range/Units 06:02 06:02 06:02 RBC 3.09 L (3.80-5.40) m/uL Hgb 8.0 L (11.4-16.0) gm/dL Hct 26.4 L (34.0-46.0) % MCHC 30.3 L (31.0-37.0) g/dL RDW 19.5 H (11.5-15.5) % Lymphocytes # 0.8 L (1.0-4.8) k/uL PT 24.6 H (9.0-12.0) sec INR 2.7 H (<1.2) Sodium 135 L (137-145) mmol/L Chloride 108 H (98-107) mmol/L Carbon Dioxide 19 L (22-30) mmol/L POC Glucose (mg/dL) (75-99) mg/dL Total Protein 6.1 L (6.3-8.2) g/dL Albumin 3.1 L (3.5-5.0) g/dL Assessment and Plan Plan: Assessment: 1. Nonoliguric acute kidney injury mostly prerenal improving with IV hydration. Creatinine was over 4 on admission and is down to 0.9 today. Urinalysis is quite benign. 2. Chronic kidney disease stage III with baseline creatinine in the range of 1.1-1.7 in April 2018. 3. Hyperkalemia on admission. Improved with medical management. Currently receiving IV fluids with potassium supplementation. 4. Severe symptomatic anemia status post blood transfusion this admission. Status post 3 doses of IV iron. Concern for GI bleed. Iron deficiency noted. Status post colonoscopy June 09 which revealed an ulcerated cecal mass as well as a sigmoid colon polyp along with small internal hemorrhoids. Status post right-sided colectomy on June 10. 5. Systolic CHF with ejection fraction of 35-40%. Currently compensated. 6. Insulin-dependent diabetes mellitus. 7. History of atrial fibrillation. 8. Hypertension with chronic kidney disease. Controlled. 9. LE edema. 10. Hyponatremia secondary to hypotonic fluid infusion. Plan: Maintain Aranesp. Avoid nephrotoxins. Continue to hold Cozaar and Aldactone for now as blood pressure is controlled. Repeat electrolytes in the morning. I would decrease the rate of normal saline to 50 mL an hour. Lasix 20 mg IV once today. Diet to be advanced per surgery.
[2018-06-14 11:36] LABS: Glucose,Whole Blood 105 mg/dL (75-99)
[2018-06-14 12:35] LABS: Anisocytosis Slight; HCT 27.1 % (34.0-46.0); HGB 8.6 gm/dL (11.4-16.0); Hypochromasia Marked; MCH 27.8 pg (25.0-35.0); MCHC 31.6 g/dL (31.0-37.0); MCV 87.8 fL (80.0-100.0); Mean Platelet Volume 6.5; Platelet Count 274 k/uL (150-450); Poikilocytosis Slight; RBC 3.09 m/uL (3.80-5.40); RDW 19.2 % (11.5-15.5); WBC 8.4 k/uL (3.8-10.6)
--- NOTE | 2018-06-14 13:36 | P.PN ---
Progress Note - Text Progress Note Date: 06/14/18 Shunt is resting comfortably in her bed. She has minimal with the pain. She is tolerating liquid diet. On exam her vital signs are stable. Her abdomen soft. Patient will have her diet advanced. She can be discharged home per medicine at any time.
--- NOTE | 2018-06-14 15:04 | P.PN ---
Subjective Progress Note Date: 06/14/18 This is an 78-year-old female with known history of rheumatic heart disease status post aortic and mitral valve replacements performed in , history of chronic persistent atrial fibrillation, prior pacemaker implantation, severe pulmonary hypertension with moderate LV dysfunction who presented with dark stool. She had history of anemia and has been on iron but she stopped the iron for about a week in her stool remained black. She was seen in consultation yesterday by Dr. Winn. Patient is scheduled to undergo an EGD once her INR comes down to acceptable range. We will need to bridge the patient with IV heparin. She was seen and examined today, appears a little frustrated, denies any shortness of breath or difficulty breathing. She is sitting up in the chair at the time of our examination and has been encouraged to be up distance. 06/08/2018 Patient seen and examined this morning, early being prepped for her procedure today. INR today is 1.7, white blood cell count 5.3, hemoglobin 8.4, platelet count 201. Sodium 138, potassium 4.2, BUN 19, creatinine 1.3. Heparin drip has been initiated, patient will need to remain on a heparin drip because of her history of valve replacements. 06/13/2018 Patient now is status post laparoscopic right colectomy with lysis of adhesions for right colon cancer. She was seen and examined this morning, complaining of mild bloating and mild abdominal discomfort. She denies any shortness of breath , no chest discomfort. She was on IV heparin this morning, however her INR is coming back to be 4.6. Hemoglobin 7.9, sodium 133, potassium 5.0, BUN 15, creatinine 0.9. We will hold the Coumadin today, discontinue IV heparin. 06/14/2018 She was seen and examined this morning, sitting up in the chair at bedside. Denies any pain this morning, states she got some medication earlier and abdomen felt well at the time of my examination. INR today is 2.7, we will give her 5 mg of Coumadin today. Objective - Vital Signs Vital signs: Vital Signs Temp 97.2 F L 06/14/18 04:00 Pulse 80 06/14/18 12:00 Resp 20 06/14/18 12:00 BP 142/62 06/14/18 12:00 Pulse Ox 98 06/14/18 12:00 Intake & Output 06/13/18 06/14/18 06/14/18 18:59 06:59 18:59 Intake Total 240 120 180 Output Total 0 0 0 Balance 240 120 180 Weight 79.8 kg 78 kg Intake: Oral 240 120 180 Output: Stool 0 0 0 Other: Voiding Method Toilet Toilet Toilet - Exam PHYSICAL EXAMINATION: GENERAL: 78-year-old female in no acute distress at the time of my examination HEENT: Head is atraumatic, normocephalic. Pupils equal, round. Sclera anicteric. Conjunctiva are clear. Mucous membranes of the mouth are moist. Neck is supple. There is no elevated jugular venous pressure.] bruit is heard. HEART EXAMINATION: Heart S1 and S2 prosthetic aortic and mitral sound is heard, systolic murmur heard CHEST EXAMINATION: Lungs are clear to auscultation and precussion. No chest wall tenderness is noted on palpation or with deep breathing. ABDOMEN: Soft, mild bloating, generalized tenderness . Bowel sounds are heard. No organomegaly noted. EXTREMITIES: 2+ peripheral pulses with no evidence of peripheral edema and no calf tenderness noted. NEUROLOGIC patient is awake, alert and oriented X3. . - Labs CBC & Chem 7: 06/14/18 12:23 06/14/18 06:02 Labs: Abnormal Lab Results - Last 24 Hours (Table) 06/13/18 06/13/18 06/14/18 Range/Units 16:20 20:38 06:02 RBC 3.09 L (3.80-5.40) m/uL Hgb 8.0 L (11.4-16.0) gm/dL Hct 26.4 L (34.0-46.0) % MCHC 30.3 L (31.0-37.0) g/dL RDW 19.5 H (11.5-15.5) % Lymphocytes # 0.8 L (1.0-4.8) k/uL PT (9.0-12.0) sec INR (<1.2) Sodium (137-145) mmol/L Chloride (98-107) mmol/L Carbon Dioxide (22-30) mmol/L POC Glucose (mg/dL) 150 H 113 H (75-99) mg/dL Total Protein (6.3-8.2) g/dL Albumin (3.5-5.0) g/dL 06/14/18 06/14/18 06/14/18 Range/Units 06:02 06:02 11:33 RBC (3.80-5.40) m/uL Hgb (11.4-16.0) gm/dL Hct (34.0-46.0) % MCHC (31.0-37.0) g/dL RDW (11.5-15.5) % Lymphocytes # (1.0-4.8) k/uL PT 24.6 H (9.0-12.0) sec INR 2.7 H (<1.2) Sodium 135 L (137-145) mmol/L Chloride 108 H (98-107) mmol/L Carbon Dioxide 19 L (22-30) mmol/L POC Glucose (mg/dL) 105 H (75-99) mg/dL Total Protein 6.1 L (6.3-8.2) g/dL Albumin 3.1 L (3.5-5.0) g/dL 06/14/18 Range/Units 12:23 RBC 3.09 L (3.80-5.40) m/uL Hgb 8.6 L (11.4-16.0) gm/dL Hct 27.1 L (34.0-46.0) % MCHC (31.0-37.0) g/dL RDW 19.2 H (11.5-15.5) % Lymphocytes # (1.0-4.8) k/uL PT (9.0-12.0) sec INR (<1.2) Sodium (137-145) mmol/L Chloride (98-107) mmol/L Carbon Dioxide (22-30) mmol/L POC Glucose (mg/dL) (75-99) mg/dL Total Protein (6.3-8.2) g/dL Albumin (3.5-5.0) g/dL Assessment and Plan Plan: Assessment and plan #1 GI bleeding, status post laparoscopic right colectomy with lysis of adhesions for right colon cancer #2 status post aortic and mitral valve replacement #3 nonischemic cardiomyopathy #4 hypertension #5 chronic persistent atrial fibrillation #6 chronic kidney disease #7 prior pacemaker Plan We will give the patient 5 mg of Coumadin today, keep the INR in the range of 3- 3.5. DNP note has been reviewed, I agree with a documented findings and plan of care. Patient was seen and examined.
[2018-06-14] MEDS: HYDROcodone/APAP 7.5-325MG 1 EACH TAB PO PRN (15:18)
[2018-06-14] MEDS: CHOLECALCIFEROL 1,000 UNIT TAB PO SCH (15:18)
[2018-06-14] MEDS: SODIUM CHLORIDE 0.9% 1,000 ML IV SCH (15:57)
[2018-06-14 16:55] LABS: Glucose,Whole Blood 113 mg/dL (75-99)
[2018-06-14] MEDS ORDERED: WARFARIN 5 MG TAB PO ONE (18:00)
[2018-06-14 22:00] LABS: Glucose,Whole Blood 182 mg/dL (75-99)
[2018-06-14] MEDS: ATORVASTATIN 20 MG TAB PO SCH (22:01)
[2018-06-14] MEDS: INSULIN DETEMIR 100 UNIT/ML 10 ML VIAL SQ SCH (22:01)
[2018-06-14 22:52] LABS: Glucose,Whole Blood 261 mg/dL (75-99)
[2018-06-15] MEDS: HYDROcodone/APAP 7.5-325MG 1 EACH TAB PO PRN ×3 (00:05→23:14)
--- NOTE | 2018-06-15 05:05 | PN ---
PROGRESS NOTE DATE OF SERVICE: 06/14/2018 PRESENT COMPLAINT: Tired. INTERVAL HISTORY: Patient admitted to the hospital with acute renal failure that corrected, also on atrial fibrillation anticoagulation. Also had right colectomy for a cecal mass. The patient remains on a full liquid diet. Has passed some flatus. No bowel movement. Did walk in the hallway. Continues to feel tired. REVIEW OF SYSTEMS: Done for constitutional, cardiovascular, GI, pulmonary relevant findings as above. CURRENT MEDICATIONS: Reviewed. PHYSICAL EXAMINATION: VITAL SIGNS: Temperature 97.2, pulse 67, respiratory 18, blood pressure 109/65, pulse ox 95% on room air. GENERAL APPEARANCE: Sitting up, awake. EYES: Pupils equal, conjunctivae normal. HEENT pale. External appearance of nose and ears normal. Oral cavity normal. NECK: JVD not raised. Mass not palpable. RESPIRATORY: Effort normal. LUNGS: Decreased breath sounds. CARDIOVASCULAR: Heart sounds irregular. No edema. ABDOMEN: Soft. Minimal tenderness. Liver and spleen not palpable. PSYCHIATRY: Alert and oriented x3. Mood and affect normal. INVESTIGATIONS: Hemoglobin 8.6. ASSESSMENT: 1. 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 2. Chronic congestive heart failure from systolic dysfunction EF 35%. 3. Persistent atrial flutter, pacemaker in place. 4. 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 5. Severe tricuspid regurgitation and moderate mitral regurgitation, nonrheumatic. 6. Diabetes mellitus type 2, chronically on insulin. 7. Essential hypertension. 8. Hyperlipidemia. 9. Acute renal failure likely prerenal, now corrected. 10.Peripheral neuropathy from diabetes. 11.Recent hospitalization for acute osteomyelitis of the left 2nd toe per Dr. Johnson, no antibiotic course is completed. 12.Obesity; BMI 31.8. 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 14.Acute on chronic blood loss, likely from cecal mass status post unit of blood. 15.Essential hypertension. 16.Iron deficiency anemia from above. PLAN: Continue current medication and treatment plan. Coumadin was held because of increased INR. Ordered chewing gum. Care was discussed with the patient. INR today was 2.7. MMODL / IJN: [id number] /
[2018-06-15 05:50] LABS: Glucose,Whole Blood 119 mg/dL (75-99)
[2018-06-15] MEDS: SODIUM CHLORIDE 0.9% 1,000 ML IV SCH (06:07)
[2018-06-15] MEDS: INSULIN ASPART 100 UNIT/ML 1 ML 10 ML VIAL SQ SCH ×4 (06:07→21:38)
[2018-06-15 06:40] LABS: Anisocytosis Slight; Basophils % (A) 1 %; Eosinophils # (A) 0.2 k/uL (0-0.7); Eosinophils % (A) 3 %; HGB 7.9 gm/dL (11.4-16.0); Hypochromasia Marked; Lymphocytes % (A) 17 %; MCH 25.9 pg (25.0-35.0); MCHC 30.3 g/dL (31.0-37.0); MCV 85.6 fL (80.0-100.0); Mean Platelet Volume 6.9; Microcytosis Slight; Monocytes # (A) 0.6 k/uL (0-1.0); Monocytes % (A) 10 %; Neutrophils # (A) 4.1 k/uL (1.3-7.7); Neutrophils % (A) 66 %; Platelet Count 265 k/uL (150-450); Poikilocytosis Slight; RBC 3.04 m/uL (3.80-5.40); RDW 19.5 % (11.5-15.5); WBC 6.2 k/uL (3.8-10.6)
[2018-06-15 06:48] LABS: INR 2.3 (<1.2)
[2018-06-15 06:50] LABS: Albumin 3.1 g/dL (3.5-5.0); Calcium 8.5 mg/dL (8.4-10.2); Magnesium 1.7 mg/dL (1.6-2.3); Potassium 4.3 mmol/L (3.5-5.1); Total Protein 5.8 g/dL (6.3-8.2)
[2018-06-15] MEDS: ATENOLOL 25 MG TAB PO SCH ×2 (08:16→20:20)
[2018-06-15] MEDS: hydrALAZINE HCL 25 MG TAB PO SCH ×2 (08:16→20:20)
[2018-06-15] MEDS: ALVIMOPAN 12 MG CAPSULE PO SCH ×2 (08:16→20:20)
[2018-06-15] MEDS: PANTOPRAZOLE 40 MG TABLET PO SCH ×2 (08:16→20:20)
[2018-06-15] MEDS: CHOLECALCIFEROL 1,000 UNIT TAB PO SCH (08:16)
[2018-06-15 10:16] VITALS: BMI 30.8
[2018-06-15] MEDS: MORPHINE SULFATE 2 MG/ML SYRINGE IVP PRN (10:37)
[2018-06-15 11:13] LABS: Glucose,Whole Blood 151 mg/dL (75-99)
--- NOTE | 2018-06-15 11:54 | P.PN ---
Subjective Patient is seen in follow-up for acute kidney injury on chronic kidney disease. Patient has chronic kidney disease stage III with creatinine in the range of 1.1-1.7 in April 2018. Creatinine was up to 4.08 on admission and now near 1. Denies any melena or hematochezia. No diarrhea. Admits to good urine output. She underwent a colonoscopy on June 09 and was noted to have an ulcerated cecal mass. She underwent a right-sided laparoscopic colectomy on June 10. She is on a regular diet. Still no bowel movement. Vital signs are stable. General: The patient appeared well nourished and normally developed. HEENT: Head exam is unremarkable. Neck is without jugular venous distension. LUNGS: Lungs are clear to auscultation and percussion. Breath sounds decreased. HEART: Rate and Rhythm are regular. First and second heart sounds normal. No murmurs, rubs or gallops. ABDOMEN: Abdominal exam reveals normal bowel sounds. Non-tender and non- distended. No evidence of peritonitis. EXTREMITITES: 1+ edema. Objective - Vital Signs Vital signs: Vital Signs Temp 97.4 F L 06/15/18 11:15 Pulse 80 06/15/18 11:15 Resp 16 06/15/18 11:15 BP 121/69 06/15/18 11:15 Pulse Ox 95 06/15/18 11:15 Intake & Output 06/14/18 06/15/18 06/15/18 18:59 06:59 18:59 Intake Total 180 400 100 Output Total 0 Balance 180 400 100 Weight 76.4 kg 76.4 kg Intake: Intake, IV Titration 400 Amount Sodium Chloride 0.9% 1, 400 000 ml @ 50 mls/hr IV . Q20H [facility] Rx#:[id number] Oral 180 100 Output: Stool 0 Other: Voiding Method Toilet Toilet - Labs CBC & Chem 7: 06/15/18 05:41 06/15/18 05:41 Labs: Abnormal Lab Results - Last 24 Hours (Table) 06/14/18 06/14/18 06/14/18 Range/Units 12:23 16:26 20:48 RBC 3.09 L (3.80-5.40) m/uL Hgb 8.6 L (11.4-16.0) gm/dL Hct 27.1 L (34.0-46.0) % MCHC (31.0-37.0) g/dL RDW 19.2 H (11.5-15.5) % PT (9.0-12.0) sec INR (<1.2) Sodium (137-145) mmol/L Chloride (98-107) mmol/L Carbon Dioxide (22-30) mmol/L Glucose (74-99) mg/dL POC Glucose (mg/dL) 113 H 261 H (75-99) mg/dL Total Protein (6.3-8.2) g/dL Albumin (3.5-5.0) g/dL 06/14/18 06/15/18 06/15/18 Range/Units 21:58 05:41 05:41 RBC 3.04 L (3.80-5.40) m/uL Hgb 7.9 L (11.4-16.0) gm/dL Hct 26.0 L (34.0-46.0) % MCHC 30.3 L (31.0-37.0) g/dL RDW 19.5 H (11.5-15.5) % PT (9.0-12.0) sec INR (<1.2) Sodium 136 L (137-145) mmol/L Chloride 108 H (98-107) mmol/L Carbon Dioxide 21 L (22-30) mmol/L Glucose 103 H (74-99) mg/dL POC Glucose (mg/dL) 182 H (75-99) mg/dL Total Protein 5.8 L (6.3-8.2) g/dL Albumin 3.1 L (3.5-5.0) g/dL 06/15/18 06/15/18 06/15/18 Range/Units 05:41 05:49 11:10 RBC (3.80-5.40) m/uL Hgb (11.4-16.0) gm/dL Hct (34.0-46.0) % MCHC (31.0-37.0) g/dL RDW (11.5-15.5) % PT 21.0 H (9.0-12.0) sec INR 2.3 H (<1.2) Sodium (137-145) mmol/L Chloride (98-107) mmol/L Carbon Dioxide (22-30) mmol/L Glucose (74-99) mg/dL POC Glucose (mg/dL) 119 H 151 H (75-99) mg/dL Total Protein (6.3-8.2) g/dL Albumin (3.5-5.0) g/dL Assessment and Plan Plan: Assessment: 1. Nonoliguric acute kidney injury mostly prerenal improving with IV hydration. Creatinine was over 4 on admission - 0.97 today. Urinalysis is quite benign. 2. Chronic kidney disease stage III with baseline creatinine in the range of 1.1-1.7 in April 2018. 3. Hyperkalemia on admission. Improved with medical management. Currently receiving IV fluids with potassium supplementation. 4. Severe symptomatic anemia status post blood transfusion this admission. Status post 3 doses of IV iron. Concern for GI bleed. Iron deficiency noted. Status post colonoscopy June 09 which revealed an ulcerated cecal mass as well as a sigmoid colon polyp along with small internal hemorrhoids. Status post right-sided colectomy on June 10. 5. Systolic CHF with ejection fraction of 35-40%. Currently compensated. 6. Insulin-dependent diabetes mellitus. 7. History of atrial fibrillation. 8. Hypertension with chronic kidney disease. Controlled. 9. LE edema. 10. Hyponatremia secondary to hypotonic fluid infusion. Plan: Maintain Aranesp. Avoid nephrotoxins. Continue to hold Cozaar and Aldactone for now as blood pressure is controlled. Repeat electrolytes in the morning. Hep-Lock IV fluids. Lasix 20 mg IV once today.
[2018-06-15] MEDS ORDERED: FUROSEMIDE 10 MG/ML 2 ML VIAL IV ONE (12:00)
--- NOTE | 2018-06-15 14:56 | P.PN ---
Subjective Progress Note Date: 06/15/18 This is an 78-year-old female with known history of rheumatic heart disease status post aortic and mitral valve replacements performed in , history of chronic persistent atrial fibrillation, prior pacemaker implantation, severe pulmonary hypertension with moderate LV dysfunction who presented with dark stool. She had history of anemia and has been on iron but she stopped the iron for about a week in her stool remained black. She was seen in consultation yesterday by Dr. Winn. Patient is scheduled to undergo an EGD once her INR comes down to acceptable range. We will need to bridge the patient with IV heparin. She was seen and examined today, appears a little frustrated, denies any shortness of breath or difficulty breathing. She is sitting up in the chair at the time of our examination and has been encouraged to be up distance. 06/08/2018 Patient seen and examined this morning, early being prepped for her procedure today. INR today is 1.7, white blood cell count 5.3, hemoglobin 8.4, platelet count 201. Sodium 138, potassium 4.2, BUN 19, creatinine 1.3. Heparin drip has been initiated, patient will need to remain on a heparin drip because of her history of valve replacements. 06/13/2018 Patient now is status post laparoscopic right colectomy with lysis of adhesions for right colon cancer. She was seen and examined this morning, complaining of mild bloating and mild abdominal discomfort. She denies any shortness of breath , no chest discomfort. She was on IV heparin this morning, however her INR is coming back to be 4.6. Hemoglobin 7.9, sodium 133, potassium 5.0, BUN 15, creatinine 0.9. We will hold the Coumadin today, discontinue IV heparin. 06/14/2018 She was seen and examined this morning, sitting up in the chair at bedside. Denies any pain this morning, states she got some medication earlier and abdomen felt well at the time of my examination. INR today is 2.7, we will give her 5 mg of Coumadin today. 06/15/2018 Patient was seen and examined this morning, sitting up in her chair at bedside. Overall her spirits are much improved today. INR 2.3 today. We will give the patient 10 mg of Coumadin today. Check INR in the morning. Objective - Vital Signs Vital signs: Vital Signs Temp 97.4 F L 06/15/18 11:15 Pulse 80 06/15/18 11:15 Resp 16 06/15/18 11:15 BP 121/69 06/15/18 11:15 Pulse Ox 95 06/15/18 11:15 Intake & Output 06/14/18 06/15/18 06/15/18 18:59 06:59 18:59 Intake Total 180 400 100 Output Total 0 Balance 180 400 100 Weight 76.4 kg 76.4 kg Intake: Intake, IV Titration 400 Amount Sodium Chloride 0.9% 1, 400 000 ml @ 50 mls/hr IV . Q20H [facility] Rx#:[id number] Oral 180 100 Output: Stool 0 Other: Voiding Method Toilet Toilet - Exam PHYSICAL EXAMINATION: GENERAL: 78-year-old female in no acute distress at the time of my examination HEENT: Head is atraumatic, normocephalic. Pupils equal, round. Sclera anicteric. Conjunctiva are clear. Mucous membranes of the mouth are moist. Neck is supple. There is no elevated jugular venous pressure.] bruit is heard. HEART EXAMINATION: Heart S1 and S2 prosthetic aortic and mitral sound is heard, systolic murmur heard CHEST EXAMINATION: Lungs are clear to auscultation and precussion. No chest wall tenderness is noted on palpation or with deep breathing. ABDOMEN: Soft, mild bloating, generalized tenderness . Bowel sounds are heard. No organomegaly noted. EXTREMITIES: 2+ peripheral pulses with no evidence of peripheral edema and no calf tenderness noted. NEUROLOGIC patient is awake, alert and oriented X3. . - Labs CBC & Chem 7: 06/15/18 05:41 06/15/18 05:41 Labs: Abnormal Lab Results - Last 24 Hours (Table) 06/14/18 06/14/18 06/14/18 Range/Units 16:26 20:48 21:58 RBC (3.80-5.40) m/uL Hgb (11.4-16.0) gm/dL Hct (34.0-46.0) % MCHC (31.0-37.0) g/dL RDW (11.5-15.5) % PT (9.0-12.0) sec INR (<1.2) Sodium (137-145) mmol/L Chloride (98-107) mmol/L Carbon Dioxide (22-30) mmol/L Glucose (74-99) mg/dL POC Glucose (mg/dL) 113 H 261 H 182 H (75-99) mg/dL Total Protein (6.3-8.2) g/dL Albumin (3.5-5.0) g/dL 06/15/18 06/15/18 06/15/18 Range/Units 05:41 05:41 05:41 RBC 3.04 L (3.80-5.40) m/uL Hgb 7.9 L (11.4-16.0) gm/dL Hct 26.0 L (34.0-46.0) % MCHC 30.3 L (31.0-37.0) g/dL RDW 19.5 H (11.5-15.5) % PT 21.0 H (9.0-12.0) sec INR 2.3 H (<1.2) Sodium 136 L (137-145) mmol/L Chloride 108 H (98-107) mmol/L Carbon Dioxide 21 L (22-30) mmol/L Glucose 103 H (74-99) mg/dL POC Glucose (mg/dL) (75-99) mg/dL Total Protein 5.8 L (6.3-8.2) g/dL Albumin 3.1 L (3.5-5.0) g/dL 06/15/18 06/15/18 Range/Units 05:49 11:10 RBC (3.80-5.40) m/uL Hgb (11.4-16.0) gm/dL Hct (34.0-46.0) % MCHC (31.0-37.0) g/dL RDW (11.5-15.5) % PT (9.0-12.0) sec INR (<1.2) Sodium (137-145) mmol/L Chloride (98-107) mmol/L Carbon Dioxide (22-30) mmol/L Glucose (74-99) mg/dL POC Glucose (mg/dL) 119 H 151 H (75-99) mg/dL Total Protein (6.3-8.2) g/dL Albumin (3.5-5.0) g/dL Assessment and Plan Plan: Assessment and plan #1 GI bleeding, status post laparoscopic right colectomy with lysis of adhesions for right colon cancer #2 status post aortic and mitral valve replacement #3 nonischemic cardiomyopathy #4 hypertension #5 chronic persistent atrial fibrillation #6 chronic kidney disease #7 prior pacemaker Plan We will give the patient 10 mg of Coumadin today, keep the INR in the range of 3 -3.5. DNP note has been reviewed, I agree with a documented findings and plan of care. Patient was seen and examined.
[2018-06-15 16:52] LABS: Glucose,Whole Blood 128 mg/dL (75-99)
[2018-06-15] MEDS ORDERED: WARFARIN 10 MG TAB PO ONE (18:00)
[2018-06-15] MEDS ORDERED: WARFARIN 5 MG TAB PO ONE (18:00)
--- NOTE | 2018-06-15 18:45 | P.PN ---
Progress Note - Text Progress Note Date: 06/15/18 The patient is resting comfortably in her bed. She has no real abdominal complaints. On exam her vital signs are stable. Her abdomen soft. Her incision site is clean dry and intact. Status post right colectomy. Patient be discharged home per medicine.
--- NOTE | 2018-06-15 19:00 | PN ---
PROGRESS NOTE DATE OF SERVICE: 06/15/2018 PRESENTING COMPLAINT: Tired. INTERVAL HISTORY: Patient is admitted with acute renal failure that resolved, also in atrial fibrillation on Coumadin, also had right colectomy for cecal mass. The patient has not had a bowel movement, is on full liquid, has been ambulatory. REVIEW OF SYSTEMS: Done for constitutional, cardiovascular, GI, pulmonary; relevant findings as above. CURRENT MEDICATIONS: Reviewed. EXAMINATION: Temperature 97.4, pulse 60, respirations 16, blood pressure 120/69, pulse ox 95% on room air. GENERAL APPEARANCE: Sitting up on a chair, awake. EYES: Pupils equal. Conjunctivae normal. HEENT: External nose and ears normal. Oral cavity normal. NECK: JVD not raised. Mass not felt. RESPIRATORY: Effort normal. LUNGS: Decreased breath sounds. CARDIOVASCULAR: Heart sounds irregular. Some edema. ABDOMEN: Soft. Mild tenderness. Liver and spleen not palpable. PSYCHIATRY: Alert and oriented x3. Mood and affect normal. INVESTIGATIONS: White count 6.2, hemoglobin 7.9. Potassium 4.3. ASSESSMENT: 1. Right cecal mass showing mucinous adenocarcinoma, status post right colectomy. Postoperatively, patient has not had a bowel movement. 2. Chronic congestive heart failure from systolic dysfunction, ejection fraction 35%. 3. Persistent atrial flutter, pacemaker in place. 4. 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 5. Severe tricuspid regurgitation and moderate mitral regurgitation, nonrheumatic. 6. Diabetes mellitus type 2, chronically on insulin. 7. Essential hypertension. 8. Hyperlipidemia. 9. Acute renal failure prerenal, corrected. 10.Peripheral neuropathy from diabetes. 11.Recent hospitalization for acute osteomyelitis of the left 2nd toe per Dr. Johnson. No further antibiotics. 12.Obesity; BMI 31.8. 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 14.Acute on chronic blood loss, likely from cecal mass, status post blood transfusion. 15.Essential hypertension. 16.Iron-deficiency from anemia. PLAN: I spoke to the nurse to get pain medications from Dr. Ken. IV pain medications can be discontinued in the meantime. The patient has not had a bowel movement. INR to be followed. MMODL / IJN: [id number] /
[2018-06-15] MEDS: ATORVASTATIN 20 MG TAB PO SCH (20:20)
[2018-06-15 21:01] LABS: Glucose,Whole Blood 172 mg/dL (75-99)
[2018-06-15] MEDS: INSULIN DETEMIR 100 UNIT/ML 10 ML VIAL SQ SCH (21:38)
[2018-06-16 02:25] LABS: Glucose,Whole Blood 117 mg/dL (75-99)
[2018-06-16 05:42] LABS: Glucose,Whole Blood 173 mg/dL (75-99)
[2018-06-16 06:00] LABS: Anisocytosis Slight; Basophils % (A) 1 %; Eosinophils # (A) 0.2 k/uL (0-0.7); Eosinophils % (A) 3 %; HCT 26.7 % (34.0-46.0); HGB 8.1 gm/dL (11.4-16.0); Hypochromasia Marked; Lymphocytes # (A) 0.8 k/uL (1.0-4.8); Lymphocytes % (A) 14 %; MCHC 30.4 g/dL (31.0-37.0); MCV 85.3 fL (80.0-100.0); Mean Platelet Volume 7.1; Microcytosis Slight; Monocytes # (A) 0.5 k/uL (0-1.0); Monocytes % (A) 9 %; Neutrophils # (A) 4.3 k/uL (1.3-7.7); Neutrophils % (A) 71 %; Platelet Count 272 k/uL (150-450); Poikilocytosis Slight; RBC 3.13 m/uL (3.80-5.40); RDW 19.5 % (11.5-15.5)
[2018-06-16 06:04] LABS: INR 3.3 (<1.2); Prothrombin Time 29.2 sec (9.0-12.0)
[2018-06-16 06:10] LABS: Albumin 3.2 g/dL (3.5-5.0); Calcium 8.4 mg/dL (8.4-10.2); Total Protein 5.9 g/dL (6.3-8.2)
[2018-06-16] MEDS: INSULIN ASPART 100 UNIT/ML 1 ML 10 ML VIAL SQ SCH ×2 (06:47→11:33)
[2018-06-16] MEDS: HYDROcodone/APAP 7.5-325MG 1 EACH TAB PO PRN (07:22)
[2018-06-16] MEDS: CHOLECALCIFEROL 1,000 UNIT TAB PO SCH (08:13)
[2018-06-16] MEDS: hydrALAZINE HCL 25 MG TAB PO SCH (08:13)
[2018-06-16] MEDS: PANTOPRAZOLE 40 MG TABLET PO SCH (08:13)
[2018-06-16] MEDS: ALVIMOPAN 12 MG CAPSULE PO SCH (08:13)
[2018-06-16] MEDS: ATENOLOL 25 MG TAB PO SCH (08:13)
[2018-06-16 08:21] VITALS: RESP 18
--- NOTE | 2018-06-16 08:31 | P.PN ---
Subjective Patient is seen in follow-up for acute kidney injury on chronic kidney disease. Patient has chronic kidney disease stage III with creatinine in the range of 1.1-1.7 in April 2018. Creatinine was up to 4.08 on admission and now near 1. Denies any melena or hematochezia. No diarrhea. Admits to good urine output. She underwent a colonoscopy on June 09 and was noted to have an ulcerated cecal mass. She underwent a right-sided laparoscopic colectomy on June 10. She is on a regular diet. Still no bowel movement. Admits to lower extremity swelling. Vital signs are stable. General: The patient appeared well nourished and normally developed. HEENT: Head exam is unremarkable. Neck is without jugular venous distension. LUNGS: Lungs are clear to auscultation and percussion. Breath sounds decreased. HEART: Rate and Rhythm are regular. First and second heart sounds normal. No murmurs, rubs or gallops. ABDOMEN: Abdominal exam reveals normal bowel sounds. Non-tender and non- distended. No evidence of peritonitis. EXTREMITITES: 1+ edema. Objective - Vital Signs Vital signs: Vital Signs Temp 97.5 F L 06/16/18 08:00 Pulse 92 06/16/18 08:00 Resp 18 06/16/18 08:00 BP 138/68 06/16/18 08:00 Pulse Ox 99 06/16/18 08:00 Intake & Output 06/15/18 06/16/18 06/16/18 18:59 06:59 18:59 Intake Total 640 10 Balance 640 10 Weight 76.4 kg 78.5 kg Intake: IV 10 Invasive Line 4 10 Oral 640 Other: Voiding Method Toilet - Labs CBC & Chem 7: 06/16/18 05:31 06/16/18 05:31 Labs: Abnormal Lab Results - Last 24 Hours (Table) 06/15/18 06/15/18 06/15/18 Range/Units 11:10 16:39 20:57 RBC (3.80-5.40) m/uL Hgb (11.4-16.0) gm/dL Hct (34.0-46.0) % MCHC (31.0-37.0) g/dL RDW (11.5-15.5) % Lymphocytes # (1.0-4.8) k/uL PT (9.0-12.0) sec INR (<1.2) Glucose (74-99) mg/dL POC Glucose (mg/dL) 151 H 128 H 172 H (75-99) mg/dL Alkaline Phosphatase (38-126) U/L Total Protein (6.3-8.2) g/dL Albumin (3.5-5.0) g/dL 06/16/18 06/16/18 06/16/18 Range/Units 02:24 05:31 05:31 RBC 3.13 L (3.80-5.40) m/uL Hgb 8.1 L (11.4-16.0) gm/dL Hct 26.7 L (34.0-46.0) % MCHC 30.4 L (31.0-37.0) g/dL RDW 19.5 H (11.5-15.5) % Lymphocytes # 0.8 L (1.0-4.8) k/uL PT (9.0-12.0) sec INR (<1.2) Glucose 130 H (74-99) mg/dL POC Glucose (mg/dL) 117 H (75-99) mg/dL Alkaline Phosphatase 133 H (38-126) U/L Total Protein 5.9 L (6.3-8.2) g/dL Albumin 3.2 L (3.5-5.0) g/dL 06/16/18 06/16/18 Range/Units 05:31 05:39 RBC (3.80-5.40) m/uL Hgb (11.4-16.0) gm/dL Hct (34.0-46.0) % MCHC (31.0-37.0) g/dL RDW (11.5-15.5) % Lymphocytes # (1.0-4.8) k/uL PT 29.2 H (9.0-12.0) sec INR 3.3 H (<1.2) Glucose (74-99) mg/dL POC Glucose (mg/dL) 173 H (75-99) mg/dL Alkaline Phosphatase (38-126) U/L Total Protein (6.3-8.2) g/dL Albumin (3.5-5.0) g/dL Assessment and Plan Plan: Assessment: 1. Nonoliguric acute kidney injury mostly prerenal improving with IV hydration. Creatinine was over 4 on admission - 0.88 today. Urinalysis is quite benign. 2. Chronic kidney disease stage III with baseline creatinine in the range of 1.1-1.7 in April 2018. 3. Hyperkalemia on admission. Improved with medical management. Currently receiving IV fluids with potassium supplementation. 4. Severe symptomatic anemia status post blood transfusion this admission. Status post 3 doses of IV iron. Concern for GI bleed. Iron deficiency noted. Status post colonoscopy June 09 which revealed an ulcerated cecal mass as well as a sigmoid colon polyp along with small internal hemorrhoids. Status post right-sided colectomy on June 10. 5. Systolic CHF with ejection fraction of 35-40%. Currently compensated. 6. Insulin-dependent diabetes mellitus. 7. History of atrial fibrillation. 8. Hypertension with chronic kidney disease. Controlled. 9. LE edema. 10. Hyponatremia secondary to hypotonic fluid infusion. Resolved. Plan: Maintain Aranesp. Avoid nephrotoxins. Continue to hold Cozaar and Aldactone for now as blood pressure is controlled. Repeat electrolytes in the morning. Remains off all IV fluids. Start Lasix 40 mg IV once daily.
[2018-06-16] MEDS ORDERED: FUROSEMIDE 10 MG/ML 4 ML VIAL IV SCH (09:00)
[2018-06-16 11:28] LABS: Glucose,Whole Blood 129 mg/dL (75-99)
[2018-06-16 11:34] VITALS: BP 128/71; PULSE 81; TEMP 97.6
--- NOTE | 2018-06-16 12:49 | P.PN ---
Progress Note - Text Progress Note Date: 06/16/18 The patient is postoperative day 6 from laparoscopic right colectomy for colon cancer. Patient is doing well from a surgical standpoint. On exam her vital signs are stable. Her abdomen soft. Incision site is clean dry intact. Status post right club. Patient will be discharged home per medicine.
--- NOTE | 2018-06-16 13:54 | P.PN ---
Subjective Progress Note Date: 06/16/18 This is an 78-year-old female with known history of rheumatic heart disease status post aortic and mitral valve replacements performed in , history of chronic persistent atrial fibrillation, prior pacemaker implantation, severe pulmonary hypertension with moderate LV dysfunction who presented with dark stool. She had history of anemia and has been on iron but she stopped the iron for about a week in her stool remained black. She was seen in consultation yesterday by Dr. Winn. Patient is scheduled to undergo an EGD once her INR comes down to acceptable range. We will need to bridge the patient with IV heparin. She was seen and examined today, appears a little frustrated, denies any shortness of breath or difficulty breathing. She is sitting up in the chair at the time of our examination and has been encouraged to be up distance. 06/08/2018 Patient seen and examined this morning, early being prepped for her procedure today. INR today is 1.7, white blood cell count 5.3, hemoglobin 8.4, platelet count 201. Sodium 138, potassium 4.2, BUN 19, creatinine 1.3. Heparin drip has been initiated, patient will need to remain on a heparin drip because of her history of valve replacements. 06/13/2018 Patient now is status post laparoscopic right colectomy with lysis of adhesions for right colon cancer. She was seen and examined this morning, complaining of mild bloating and mild abdominal discomfort. She denies any shortness of breath , no chest discomfort. She was on IV heparin this morning, however her INR is coming back to be 4.6. Hemoglobin 7.9, sodium 133, potassium 5.0, BUN 15, creatinine 0.9. We will hold the Coumadin today, discontinue IV heparin. 06/14/2018 She was seen and examined this morning, sitting up in the chair at bedside. Denies any pain this morning, states she got some medication earlier and abdomen felt well at the time of my examination. INR today is 2.7, we will give her 5 mg of Coumadin today. 06/15/2018 Patient was seen and examined this morning, sitting up in her chair at bedside. Overall her spirits are much improved today. INR 2.3 today. We will give the patient 10 mg of Coumadin today. Check INR in the morning. 06/16/2018 Patient seen and examined this morning, sitting up in the chair at bedside. Feeling well. She states she had a large bowel movement this morning. INR today is 3.3. Objective - Vital Signs Vital signs: Vital Signs Temp 97.6 F 06/16/18 11:33 Pulse 81 06/16/18 11:33 Resp 18 06/16/18 11:33 BP 128/71 06/16/18 11:33 Pulse Ox 99 06/16/18 11:33 Intake & Output 06/15/18 06/16/18 06/16/18 18:59 06:59 18:59 Intake Total 640 10 480 Balance 640 10 480 Weight 76.4 kg 78.5 kg Intake: IV 10 Invasive Line 4 10 Oral 640 480 Other: Voiding Method Toilet # Voids 2 # Bowel Movements 1 - Exam PHYSICAL EXAMINATION: GENERAL: 78-year-old female in no acute distress at the time of my examination HEENT: Head is atraumatic, normocephalic. Pupils equal, round. Sclera anicteric. Conjunctiva are clear. Mucous membranes of the mouth are moist. Neck is supple. There is no elevated jugular venous pressure.] bruit is heard. HEART EXAMINATION: Heart S1 and S2 prosthetic aortic and mitral sound is heard, systolic murmur heard CHEST EXAMINATION: Lungs are clear to auscultation and precussion. No chest wall tenderness is noted on palpation or with deep breathing. ABDOMEN: Soft, mild generalized tenderness . Bowel sounds are heard. No organomegaly noted. EXTREMITIES: 2+ peripheral pulses with no evidence of peripheral edema and no calf tenderness noted. NEUROLOGIC patient is awake, alert and oriented X3. . - Labs CBC & Chem 7: 06/16/18 05:31 06/16/18 05:31 Labs: Abnormal Lab Results - Last 24 Hours (Table) 06/15/18 06/15/18 06/16/18 Range/Units 16:39 20:57 02:24 RBC (3.80-5.40) m/uL Hgb (11.4-16.0) gm/dL Hct (34.0-46.0) % MCHC (31.0-37.0) g/dL RDW (11.5-15.5) % Lymphocytes # (1.0-4.8) k/uL PT (9.0-12.0) sec INR (<1.2) Glucose (74-99) mg/dL POC Glucose (mg/dL) 128 H 172 H 117 H (75-99) mg/dL Alkaline Phosphatase (38-126) U/L Total Protein (6.3-8.2) g/dL Albumin (3.5-5.0) g/dL 06/16/18 06/16/18 06/16/18 Range/Units 05:31 05:31 05:31 RBC 3.13 L (3.80-5.40) m/uL Hgb 8.1 L (11.4-16.0) gm/dL Hct 26.7 L (34.0-46.0) % MCHC 30.4 L (31.0-37.0) g/dL RDW 19.5 H (11.5-15.5) % Lymphocytes # 0.8 L (1.0-4.8) k/uL PT 29.2 H (9.0-12.0) sec INR 3.3 H (<1.2) Glucose 130 H (74-99) mg/dL POC Glucose (mg/dL) (75-99) mg/dL Alkaline Phosphatase 133 H (38-126) U/L Total Protein 5.9 L (6.3-8.2) g/dL Albumin 3.2 L (3.5-5.0) g/dL 06/16/18 06/16/18 Range/Units 05:39 11:26 RBC (3.80-5.40) m/uL Hgb (11.4-16.0) gm/dL Hct (34.0-46.0) % MCHC (31.0-37.0) g/dL RDW (11.5-15.5) % Lymphocytes # (1.0-4.8) k/uL PT (9.0-12.0) sec INR (<1.2) Glucose (74-99) mg/dL POC Glucose (mg/dL) 173 H 129 H (75-99) mg/dL Alkaline Phosphatase (38-126) U/L Total Protein (6.3-8.2) g/dL Albumin (3.5-5.0) g/dL Assessment and Plan Plan: Assessment and plan #1 GI bleeding, status post laparoscopic right colectomy with lysis of adhesions for right colon cancer #2 status post aortic and mitral valve replacement #3 nonischemic cardiomyopathy #4 hypertension #5 chronic persistent atrial fibrillation #6 chronic kidney disease #7 prior pacemaker Plan From cardiology's perspective, we will resume the patient's home dose of Coumadin. She may be able to be discharged once cleared by surgery and primary. A follow-up appointment will be made with Dr. Winn in the office post discharge. DNP note has been reviewed, I agree with a documented findings and plan of care. Patient was seen and examined.
[2018-06-16 16:28] LABS: Glucose,Whole Blood 200 mg/dL (75-99)
[2018-06-16] MEDS ORDERED: WARFARIN 2.5 MG TAB PO SCH (18:00)
[2018-06-16] MEDS ORDERED: WARFARIN 5 MG TAB PO SCH (18:00)
[2018-06-17] MEDS ORDERED: WARFARIN 5 MG TAB PO SCH (18:00)
== END 2018-06-16 16:53 | disposition home or self-care (01) | DRG 330 ==
LOC: EC 11:43 → 4MS4W 13:50 → 6SEL 14:04
PROVIDERS: ADMIT Hospitalist; ATTEND Hospitalist
PROC: 30233N1 Transfusion of Nonautologous Red Blood Cells into Peripheral Vein, Percutaneous Approach (ICD-10-PCS; 2018-06-05)
PROC: 0DBH8ZX Excision of Cecum, Via Natural or Artificial Opening Endoscopic, Diagnostic (ICD-10-PCS; 2018-06-09)
PROC: 0DBN8ZX Excision of Sigmoid Colon, Via Natural or Artificial Opening Endoscopic, Diagnostic (ICD-10-PCS; 2018-06-09)
PROC: 0DNW4ZZ Release Peritoneum, Percutaneous Endoscopic Approach (ICD-10-PCS; principal; 2018-06-10 14:20)
PROC: 0DTH4ZZ Resection of Cecum, Percutaneous Endoscopic Approach (ICD-10-PCS; principal; 2018-06-10 14:20)
DX: C18.0 Malignant neoplasm of cecum (principal); D62 Acute posthemorrhagic anemia; E87.1 Hypo-osmolality and hyponatremia; I50.42 Chronic combined systolic (congestive) and diastolic (congestive) heart failure; I13.0 Hypertensive heart and chronic kidney disease with heart failure and stage 1 through stage 4 chronic kidney disease, or unspecified chronic kidney disease; I48.92 Unspecified atrial flutter; E87.2 Acidosis; N18.4 Chronic kidney disease, stage 4 (severe); N17.9 Acute kidney failure, unspecified; E87.5 Hyperkalemia; E11.42 Type 2 diabetes mellitus with diabetic polyneuropathy; E11.22 Type 2 diabetes mellitus with diabetic chronic kidney disease; D63.1 Anemia in chronic kidney disease; E66.9 Obesity, unspecified; K63.5 Polyp of colon; K66.0 Peritoneal adhesions (postprocedural) (postinfection); E86.1 Hypovolemia; I27.29 Other secondary pulmonary hypertension; I71.2 Thoracic aortic aneurysm, without rupture; G89.29 Other chronic pain; I48.2 Chronic atrial fibrillation; K64.1 Second degree hemorrhoids; E78.5 Hyperlipidemia, unspecified; I36.1 Nonrheumatic tricuspid (valve) insufficiency; I34.0 Nonrheumatic mitral (valve) insufficiency; K80.20 Calculus of gallbladder without cholecystitis without obstruction; R79.1 Abnormal coagulation profile; T45.515A Adverse effect of anticoagulants, initial encounter; Z96.1 Presence of intraocular lens; Z79.01 Long term (current) use of anticoagulants; Z95.2 Presence of prosthetic heart valve; Z95.0 Presence of cardiac pacemaker; Z90.710 Acquired absence of both cervix and uterus; Z79.4 Long term (current) use of insulin; Z79.899 Other long term (current) drug therapy; Z91.041 Radiographic dye allergy status; Z86.19 Personal history of other infectious and parasitic diseases; Z68.31 Body mass index [BMI] 31.0-31.9, adult; Z82.49 Family history of ischemic heart disease and other diseases of the circulatory system; Z98.42 Cataract extraction status, left eye; Z98.41 Cataract extraction status, right eye
CPT/HCPCS: 36415; 45380; 71045; 71250; 74018; 74176; 80048; 80053; 81001; 82272; 82378; 82728; 83036; 83540; 83550; 83735; 84100; 85025; 85027; 85610; 85730; 86850; 86900; 86901; 86920; 88305; 88309; 93005; 94660; 96361; 96365; 96375; 99285

== ENCOUNTER → 2018-07-06 | Outpatient (CLI) | payer MEDICARE, BC ==
[2018-07-06 13:07] LABS: Appearance,Urine Clear (Clear); Bacteria,Urine Rare /hpf; Bilirubin,Urine Negative (Negative); Blood,Urine Negative (Negative); Color,Urine Light Yellow; Glucose,Urine (UA) Negative (Negative); Hyaline Casts,Urine 4 /lpf (0-2); Ketones,Urine Negative (Negative); Leukocyte Esterase,Urine Small (Negative); Nitrite,Urine Negative (Negative); PH, Urine 6.5 (5.0-8.0); Protein,Urine Negative (Negative); RBC,Urine <1 /hpf (0-5); Specific Gravity,Urine 1.008 (1.001-1.035); Squamous Epithelial Cell,Urine 1 /hpf (0-4); Urobilinogen,Urine <2.0 mg/dL (<2.0); WBC,Urine 2 /hpf (0-5)
[2018-07-06 13:18] LABS: Anisocytosis Slight; HCT 39.6 % (34.0-46.0); Hypochromasia Marked; MCH 26.1 pg (25.0-35.0); MCHC 29.9 g/dL (31.0-37.0); MCV 87.3 fL (80.0-100.0); Mean Platelet Volume 6.5; Platelet Count 331 k/uL (150-450); RBC 4.53 m/uL (3.80-5.40); RDW 17.2 % (11.5-15.5); WBC 7.6 k/uL (3.8-10.6)
[2018-07-06 13:23] LABS: HGB 11.8 gm/dL (11.4-16.0)
[2018-07-06 13:25] LABS: Albumin 4.5 g/dL (3.5-5.0); Calcium 9.9 mg/dL (8.4-10.2); Magnesium 2.5 mg/dL (1.6-2.3); Phosphorus 4.9 mg/dL (2.5-4.5); Potassium 6.1 mmol/L (3.5-5.1); Total Bilirubin 1.4 mg/dL (0.2-1.3); Total Protein 8.4 g/dL (6.3-8.2); Uric Acid 12.4 mg/dL (3.7-7.4)
[2018-07-06 18:50] LABS: Parathyroid Hormone Intact 88.1 pg/mL (14.0-72.0)
[2018-07-06 19:08] LABS: Vitamin D 25 Hydroxy 37.6 ng/mL (30.0-100.0)
[2018-07-06 19:37] LABS: Iron Saturation 22.54 (12.00-45.00)
== END | disposition home or self-care (01) ==
LOC: LABWHC1 12:27
PROVIDERS: ATTEND Internal Medicine Nephrology
DX: N17.9 Acute kidney failure, unspecified (principal); D64.9 Anemia, unspecified; M10.9 Gout, unspecified; E55.9 Vitamin D deficiency, unspecified
CPT/HCPCS: 36415; 80053; 81001; 82043; 82306; 82570; 82728; 83540; 83550; 83735; 83970; 84100; 84550; 85027

== ENCOUNTER → 2018-07-14 | Outpatient (CLI) | payer MEDICARE, BC ==
[2018-07-14 08:36] LABS: Albumin 4.6 g/dL (3.5-5.0); Calcium 9.9 mg/dL (8.4-10.2); Potassium 5.4 mmol/L (3.5-5.1); Total Bilirubin 1.8 mg/dL (0.2-1.3); Total Protein 8.2 g/dL (6.3-8.2)
== END | disposition home or self-care (01) ==
LOC: LABWHC1 07:47
PROVIDERS: ATTEND Internal Medicine Interventional Cardiology
DX: E78.2 Mixed hyperlipidemia (principal)
CPT/HCPCS: 36415; 80053; 80061

== ENCOUNTER → 2018-08-23 | Outpatient (CLI) | payer MEDICARE, BC ==
[2018-08-23 12:47] LABS: Anisocytosis Moderate; Basophils # (A) 0.1 k/uL (0-0.2); Basophils % (A) 1 %; Eosinophils # (A) 0.2 k/uL (0-0.7); Eosinophils % (A) 3 %; HCT 34.5 % (34.0-46.0); HGB 11.4 gm/dL (11.4-16.0); Hypochromasia Slight; Lymphocytes # (A) 0.9 k/uL (1.0-4.8); Lymphocytes % (A) 17 %; MCH 29.4 pg (25.0-35.0); MCHC 33.2 g/dL (31.0-37.0); MCV 88.6 fL (80.0-100.0); Mean Platelet Volume 6.8; Monocytes # (A) 0.4 k/uL (0-1.0); Monocytes % (A) 7 %; Neutrophils # (A) 3.7 k/uL (1.3-7.7); Neutrophils % (A) 70 %; Platelet Count 253 k/uL (150-450); RBC 3.89 m/uL (3.80-5.40); RDW 20.3 % (11.5-15.5); WBC 5.3 k/uL (3.8-10.6)
[2018-08-23 12:57] LABS: Prothrombin Time 50.6 sec (9.0-12.0)
[2018-08-23 13:10] LABS: INR 5.6 (<1.2)
[2018-08-23 13:18] LABS: ALT <6 U/L (9-52); AST 37 U/L (14-36); Albumin 4.4 g/dL (3.5-5.0); Alkaline Phosphatase 116 U/L (38-126); Blood Urea Nitrogen 30 mg/dL (7-17); Calcium 9.2 mg/dL (8.4-10.2); Carbon Dioxide 26 mmol/L (22-30); Chloride 101 mmol/L (98-107); Glucose 101 mg/dL (74-99); Magnesium 2.2 mg/dL (1.6-2.3); Potassium 4.3 mmol/L (3.5-5.1); Total Bilirubin 1.8 mg/dL (0.2-1.3); Total Protein 7.9 g/dL (6.3-8.2)
[2018-08-23 14:26] LABS: Anion Gap 11 mmol/L; Sodium 138 mmol/L (137-145)
[2018-08-23 22:16] LABS: Hemoglobin A1C 5.1 % (4.0-6.0)
== END | disposition home or self-care (01) ==
LOC: LABWHC1 11:38
PROVIDERS: ATTEND Nurse Practitioner Adult Health
DX: E87.6 Hypokalemia (principal); E11.621 Type 2 diabetes mellitus with foot ulcer; I48.1 Persistent atrial fibrillation; Z95.2 Presence of prosthetic heart valve
CPT/HCPCS: 36415; 80053; 83036; 83735; 84681; 85025; 85610; 86337

== ENCOUNTER → 2018-09-02 | Outpatient (CLI) | payer MEDICARE, BC ==
[2018-09-02 11:54] LABS: INR 3.9 (<1.2); Prothrombin Time 35.1 sec (9.0-12.0)
== END | disposition home or self-care (01) ==
LOC: LABWHC1 11:09
PROVIDERS: ATTEND Nurse Practitioner Adult Health
DX: I48.1 Persistent atrial fibrillation (principal)
CPT/HCPCS: 36415; 85610

== ENCOUNTER → 2018-09-16 | Outpatient (CLI) | payer MEDICARE, BC ==
[2018-09-16 12:39] LABS: Anisocytosis Moderate; HCT 37.1 % (34.0-46.0); HGB 12.1 gm/dL (11.4-16.0); MCH 30.6 pg (25.0-35.0); MCHC 32.7 g/dL (31.0-37.0); Macrocytosis Slight; Platelet Count 248 k/uL (150-450); RBC 3.96 m/uL (3.80-5.40); RDW 20.5 % (11.5-15.5); WBC 5.2 k/uL (3.8-10.6)
[2018-09-16 12:43] LABS: MCV 93.6 fL (80.0-100.0)
[2018-09-16 12:52] LABS: Amorphous Sediment,Urine Rare /hpf; Appearance,Urine Cloudy (Clear); Bilirubin,Urine Negative (Negative); Blood,Urine Trace (Negative); Color,Urine Yellow; Glucose,Urine (UA) 3+ (Negative); Hyaline Casts,Urine 7 /lpf (0-2); Ketones,Urine Negative (Negative); Leukocyte Esterase,Urine Small (Negative); Mucus,Urine Rare /hpf; Nitrite,Urine Negative (Negative); Protein,Urine Trace (Negative); RBC,Urine 1 /hpf (0-5); Specific Gravity,Urine 1.015 (1.001-1.035); Squamous Epithelial Cell,Urine 3 /hpf (0-4); Urobilinogen,Urine <2.0 mg/dL (<2.0); WBC,Urine 4 /hpf (0-5)
[2018-09-16 18:39] LABS: Iron Saturation 15.58 (12.00-45.00)
[2018-09-16 18:44] LABS: Albumin 4.6 g/dL (3.80-4.90); Albumin/Globulin Ratio 1.7 (1.20-2.10); Anion Gap 9.3 mmol/L (4.00-12.00); Calcium 9.4 mg/dL (8.7-10.3); Carbon Dioxide 30.7 mmol/L (21.6-31.8); Globulin 2.7 g/dL (2.1-3.7); Magnesium 2.4 mg/dL (1.5-2.4); Phosphorus 3.9 mg/dL (2.4-5.1); Potassium 4.1 mmol/L (3.5-5.5); Total Bilirubin 2.2 mg/dL (0.3-1.2); Total Protein 7.3 g/dL (6.2-8.2); Uric Acid 6.3 mg/dL (2.9-7.7)
[2018-09-16 18:47] LABS: Parathyroid Hormone Intact 113.7 pg/mL (14.0-72.0)
[2018-09-16 18:48] LABS: Vitamin D 25 Hydroxy 27.7 ng/mL (30.0-100.0)
== END ==
LOC: LABWHC1 11:05
PROVIDERS: ATTEND Nurse Practitioner Family
DX: N17.9 Acute kidney failure, unspecified (principal); D64.9 Anemia, unspecified; N39.0 Urinary tract infection, site not specified; E21.3 Hyperparathyroidism, unspecified; E55.9 Vitamin D deficiency, unspecified; M10.9 Gout, unspecified; R80.9 Proteinuria, unspecified
CPT/HCPCS: 36415; 80053; 81001; 82043; 82306; 82570; 82728; 83540; 83550; 83735; 83970; 84100; 84550; 85027

== ENCOUNTER → 2018-09-27 | Outpatient (CLI) | payer MEDICARE, BC ==
[2018-09-27 12:06] LABS: Anisocytosis Slight; Basophils # (A) 0.1 k/uL (0-0.2); Basophils % (A) 1 %; Eosinophils # (A) 0.1 k/uL (0-0.7); Eosinophils % (A) 2 %; HCT 36.8 % (34.0-46.0); HGB 11.7 gm/dL (11.4-16.0); Lymphocytes # (A) 1.1 k/uL (1.0-4.8); Lymphocytes % (A) 15 %; MCH 30.2 pg (25.0-35.0); MCHC 31.9 g/dL (31.0-37.0); MCV 94.6 fL (80.0-100.0); Macrocytosis Slight; Mean Platelet Volume 6.8; Monocytes # (A) 0.3 k/uL (0-1.0); Monocytes % (A) 4 %; Neutrophils # (A) 5.5 k/uL (1.3-7.7); Neutrophils % (A) 76 %; Platelet Count 254 k/uL (150-450); RBC 3.89 m/uL (3.80-5.40); RDW 19.8 % (11.5-15.5); WBC 7.2 k/uL (3.8-10.6)
[2018-09-27 17:23] LABS: Albumin 4.5 g/dL (3.80-4.90); Albumin/Globulin Ratio 1.73 (1.20-2.10); Anion Gap 9.6 mmol/L (4.00-12.00); Calcium 9.3 mg/dL (8.7-10.3); Carbon Dioxide 28.4 mmol/L (21.6-31.8); Globulin 2.6 g/dL (2.1-3.7); Potassium 4.6 mmol/L (3.5-5.5); Total Bilirubin 2.2 mg/dL (0.3-1.2); Total Protein 7.1 g/dL (6.2-8.2); Uric Acid 6.3 mg/dL (2.9-7.7)
== END | disposition home or self-care (01) ==
LOC: LABWHC1 11:03
PROVIDERS: ATTEND Family Medicine
DX: M10.9 Gout, unspecified (principal)
CPT/HCPCS: 36415; 80053; 84550; 85025

== ENCOUNTER → 2018-12-13 | Outpatient (CLI) | payer MEDICARE, BC ==
[2018-12-13 13:09] LABS: Appearance,Urine Cloudy (Clear); Bacteria,Urine Rare /hpf; Bilirubin,Urine Negative (Negative); Blood,Urine Small (Negative); Color,Urine Yellow; Glucose,Urine (UA) 2+ (Negative); Hyaline Casts,Urine 9 /lpf (0-2); Ketones,Urine Negative (Negative); Leukocyte Esterase,Urine Trace (Negative); Mucus,Urine Rare /hpf; Nitrite,Urine Negative (Negative); Protein,Urine Trace (Negative); RBC,Urine 3 /hpf (0-5); Specific Gravity,Urine 1.014 (1.001-1.035); Squamous Epithelial Cell,Urine 3 /hpf (0-4); Urobilinogen,Urine <2.0 mg/dL (<2.0); WBC,Urine 2 /hpf (0-5)
[2018-12-13 13:11] LABS: Anisocytosis Slight; HCT 40.7 % (34.0-46.0); HGB 13.9 gm/dL (11.4-16.0); MCH 32.8 pg (25.0-35.0); MCHC 34.3 g/dL (31.0-37.0); MCV 95.8 fL (80.0-100.0); Mean Platelet Volume 6.8; Platelet Count 245 k/uL (150-450); RBC 4.25 m/uL (3.80-5.40); RDW 16.4 % (11.5-15.5); WBC 7.5 k/uL (3.8-10.6)
[2018-12-13 17:53] LABS: Parathyroid Hormone Intact 94.4 pg/mL (14.0-72.0)
[2018-12-13 18:02] LABS: Iron Saturation 17.04 (12.00-45.00)
[2018-12-13 18:13] LABS: Anion Gap 11.1 mmol/L (4.00-12.00); Calcium 9.9 mg/dL (8.7-10.3); Carbon Dioxide 27.9 mmol/L (21.6-31.8); Magnesium 2.5 mg/dL (1.5-2.4); Phosphorus 4.3 mg/dL (2.4-5.1); Potassium 4.5 mmol/L (3.5-5.5)
== END | disposition home or self-care (01) ==
LOC: LABWHC1 12:11
PROVIDERS: ATTEND Nurse Practitioner Family
DX: N17.9 Acute kidney failure, unspecified (principal); D64.9 Anemia, unspecified; N39.0 Urinary tract infection, site not specified; R80.9 Proteinuria, unspecified; E21.3 Hyperparathyroidism, unspecified; E55.9 Vitamin D deficiency, unspecified; M10.9 Gout, unspecified
CPT/HCPCS: 36415; 80048; 81001; 82043; 82306; 82570; 82728; 83540; 83550; 83735; 83970; 84100; 84550; 85027

== ENCOUNTER → 2019-01-11 | Outpatient (CLI) | payer MEDICARE, BC ==
--- NOTE | 2019-01-11 14:33 | US ---
EXAMINATION TYPE: US venous doppler duplex LE RT DATE OF EXAM: 01/11/2019 2:23 PM COMPARISON: NONE CLINICAL HISTORY: Rt lower Ext M79.661, R22.41 pain swelling. pain in pop fossa, on coumadin, no h/o dvt SIDE PERFORMED: right TECHNIQUE: The lower extremity deep venous system is examined utilizing real time linear array sonog ceasar with graded compression, doppler sonography and color-flow sonography. VESSELS IMAGED: External Iliac Vein (EIV) Common Femoral Vein Deep Femoral Vein Greater Saphenous Vein * Femoral Vein Popliteal Vein Small Saphenous Vein * Proximal Calf Veins (* superficial vessels) Right Leg: Appears negative for DVT, 3.4cm medial pop fossa cyst seen *tech impression to Ktae at Sena's office @ 2:26 IMPRESSION: 1. No diagnostic evidence of DVT 2. Popliteal fossa cyst measuring 3.4 cm.
== END | disposition home or self-care (01) ==
LOC: RADUSWWP 13:57
PROVIDERS: ATTEND Internal Medicine Hematology & Oncology
DX: M71.21 Synovial cyst of popliteal space [Baker], right knee (principal)

== ENCOUNTER 2019-01-14 10:38 | Emergency (ER) | payer MEDICARE, BC ==
[2019-01-14 10:52] VITALS: RESP 18
--- NOTE | 2019-01-14 11:24 | ED ---
General Adult HPI - General Chief complaint: Extremity Injury, Lower Stated complaint: Foot pain Time Seen by Provider: 01/14/19 11:02 Source: patient, family, RN notes reviewed Mode of arrival: ambulatory Limitations: no limitations - History of Present Illness Initial comments: Patient is a pleasant 78-year-old female presenting to the emergency Department with complaints of left foot swelling and discomfort. Symptoms have been present for a couple of days. Discomfort is only with walking. No pain otherwise. Discomfort is majority of the left foot, or so with the proximal portion. There is associated swelling and maybe a little bit of redness. No history of similar symptoms previously. No known injury. Patient is under treatment for colon cancer at this time. No leg pain or leg swelling. No fevers. - Related Data Home Medications Medication Instructions Recorded Confirmed Simvastatin [Zocor] 40 mg PO HS 03/18/17 01/14/19 Cholecalciferol [Vitamin D3] 1,000 unit PO DAILY 04/25/18 01/14/19 Ferrous Sulfate [Iron (65 MG 325 mg PO BID 04/25/18 01/14/19 Elemental)] Furosemide [Lasix] 40 mg PO BID 06/03/18 01/14/19 Warfarin [Coumadin] 2.5 mg PO MOWEFR 06/03/18 01/14/19 Warfarin [Coumadin] 5 mg PO SUTUTHSA 06/03/18 01/14/19 Acetaminophen Tab [Tylenol Tab] 1,000 mg PO TID PRN 01/14/19 01/14/19 Allopurinol [Zyloprim] 100 mg PO DAILY 01/14/19 01/14/19 Calcitriol [Rocaltrol] 0.25 mcg PO FR 01/14/19 01/14/19 Capecitabine [Xeloda] 1,000 mg PO DIRECTED 01/14/19 01/14/19 Empagliflozin/Linagliptin 1 tab PO DAILY 01/14/19 01/14/19 [Glyxambi 10 mg-5 mg Tablet] Omeprazole 40 mg PO DAILY 01/14/19 01/14/19 Ranitidine HCl [Zantac] 75 mg PO BID 01/14/19 01/14/19 Previous Rx's Medication Instructions Recorded Spironolactone [Aldactone] 50 mg PO DAILY #30 tab 05/01/18 Atenolol [Tenormin] 25 mg PO BID #0 08/02/18 hydrALAZINE HCL [Apresoline] 25 mg PO BID #60 tab 06/16/18 Cephalexin [Keflex] 500 mg PO QID #40 cap 01/14/19 methylPREDNISolone Dose Pack 24 mg PO DAILY #1 tab 01/14/19 [Medrol Dose Pack] Allergies Allergy/AdvReac Type Severity Reaction Status Date / Time Iodinated Contrast- Oral and Allergy Anaphylaxis Verified 01/14/19 11:17 IV Dye [Iodinated Contrast Media - IV Dye] Review of Systems ROS Statement: Those systems with pertinent positive or pertinent negative responses have been documented in the HPI. ROS Other: All systems not noted in ROS Statement are negative. Constitutional: Denies: fever, chills Eyes: Denies: eye pain ENT: Denies: ear pain Respiratory: Denies: cough, dyspnea Cardiovascular: Denies: chest pain Endocrine: Denies: fatigue Gastrointestinal: Denies: vomiting Genitourinary: Denies: dysuria Musculoskeletal: Reports: as per HPI. Denies: back pain Skin: Reports: as per HPI Past Medical History Past Medical History: Cancer, Diabetes Mellitus Additional Past Medical History / Comment(s): IDDM type II, neuropathy bilateral feet, rheumatic fever 30's, osteomylitis, chronic kidney disease stage IIIB, descending colon CA with resection History of Any Multi-Drug Resistant Organisms: None Reported Past Surgical History: Appendectomy, Bowel Resection, Cardiac Valve Replacement , Hysterectomy, Pacemaker Additional Past Surgical History / Comment(s): Current picc line R upper arm, 1994 mitral and aortic mechanical valves placed, Pacemakers-has had 2 or 3, colonoscopy, debridements bilateral great toe diabetic ulcers, bilateral cataract removals with lens implants. Past Anesthesia/Blood Transfusion Reactions: No Reported Reaction Additional Past Anesthesia/Blood Transfusion Reaction / Comment(s): Pt has received blood in past without reaction. Type of Cardiac Device: Permanent Pacemaker Device Placement Date:: Pt cannot recall date of last pacer insertion but battery changed 2011 Past Psychological History: No Psychological Hx Reported Smoking Status: Never smoker Past Alcohol Use History: None Reported Past Drug Use History: None Reported - Past Family History Brother(s) Additional Family Medical History / Comment(s): patient states brother had " heart problems" Father History Unknown: Yes Additional Family Medical History / Comment(s): Father committed suicide in his 50s. Mother History Unknown: Yes Family Medical History: No Reported History Additional Family Medical History / Comment(s): Mother was healthy and lived to be 92 yrs old. General Exam Limitations: no limitations General appearance: alert, in no apparent distress Head exam: Present: atraumatic Eye exam: Present: normal appearance, PERRL ENT exam: Present: normal oropharynx Neck exam: Present: normal inspection Respiratory exam: Present: normal lung sounds bilaterally Cardiovascular Exam: Present: regular rate, normal rhythm Expanded Peripheral pulses: 2+: Dorsalis Pedis (R), Dorsalis Pedis (L) GI/Abdominal exam: Present: soft. Absent: tenderness Extremities exam: Present: other (Left foot with mild to moderate swelling. There is mild diffuse tenderness. There may be a trace amount of erythema on the proximal/mid foot.) Neurological exam: Present: alert. Absent: motor sensory deficit Psychiatric exam: Present: normal affect, normal mood Skin exam: Present: other (Minimal erythema proximal medial foot) Course Vital Signs 01/14/19 01/14/19 10:48 13:50 Temperature 98 F 97.1 F L Pulse Rate 61 77 Respiratory 18 18 Rate Blood Pressure 140/73 133/78 O2 Sat by Pulse 98 99 Oximetry Medical Decision Making - Medical Decision Making Patient reevaluated and updated. Case was discussed with Dr. Shetty, covering for Dr. Barajas who is comfortable with discharge of patient. He is agreeable to antibiotics and recommended also adding steroids. They will follow up with patient. - Lab Data Result diagrams: 01/14/19 11:45 01/14/19 11:45 Lab Results 01/14/19 01/14/19 Range/Units 11:45 11:45 WBC 9.9 (3.8-10.6) k/uL RBC 3.85 (3.80-5.40) m/uL Hgb 12.4 (11.4-16.0) gm/dL Hct 36.4 (34.0-46.0) % MCV 94.5 (80.0-100.0) fL MCH 32.2 (25.0-35.0) pg MCHC 34.1 (31.0-37.0) g/dL RDW 16.3 H (11.5-15.5) % Plt Count 197 (150-450) k/uL Neutrophils % 81 % Lymphocytes % 9 % Monocytes % 6 % Eosinophils % 1 % Basophils % 0 % Neutrophils # 8.0 H (1.3-7.7) k/uL Lymphocytes # 0.9 L (1.0-4.8) k/uL Monocytes # 0.6 (0-1.0) k/uL Eosinophils # 0.1 (0-0.7) k/uL Basophils # 0.0 (0-0.2) k/uL Anisocytosis Slight Sodium 135 L (137-145) mmol/L Potassium 5.2 H (3.5-5.1) mmol/L Chloride 99 (98-107) mmol/L Carbon Dioxide 25 (22-30) mmol/L Anion Gap 11 mmol/L BUN 32 H (7-17) mg/dL Creatinine 1.40 H (0.52-1.04) mg/dL Est GFR (CKD-EPI)AfAm 41 (>60 ml/min/1.73 sqM) Est GFR (CKD-EPI)NonAf 36 (>60 ml/min/1.73 sqM) Glucose 117 H (74-99) mg/dL Uric Acid 5.9 (3.7-7.4) mg/dL Calcium 9.2 (8.4-10.2) mg/dL Total Bilirubin 2.3 H (0.2-1.3) mg/dL AST 42 H (14-36) U/L ALT 22 (9-52) U/L Alkaline Phosphatase 80 (38-126) U/L C-Reactive Protein 82.1 H (<10.0) mg/L Total Protein 7.9 (6.3-8.2) g/dL Albumin 4.5 (3.5-5.0) g/dL - Radiology Data Radiology results: report reviewed (Ultrasound negative for DVT), image reviewed (Foot x-ray shows some soft tissue swelling, no acute abnormality) Disposition Clinical Impression: Edema of foot Disposition: HOME SELF-CARE Condition: Stable Instructions (If sedation given, give patient instructions): Edema (ED) Additional Instructions: Please follow-up with your oncologist and primary care physician Wednesday. Return for fevers, increased swelling, increased redness, worsening symptoms or other concerns. Prescriptions: Cephalexin [Keflex] 500 mg PO QID #40 cap methylPREDNISolone Dose Pack [Medrol Dose Pack] 24 mg PO DAILY #1 tab Is patient prescribed a controlled substance at d/c from ED?: No Referrals: Home Garza MD [Primary Care Provider] - 1-2 days Time of Disposition: 14:59
[2019-01-14 12:05] LABS: Anisocytosis Slight; Basophils % (A) 0 %; Eosinophils # (A) 0.1 k/uL (0-0.7); Eosinophils % (A) 1 %; HCT 36.4 % (34.0-46.0); HGB 12.4 gm/dL (11.4-16.0); Lymphocytes # (A) 0.9 k/uL (1.0-4.8); Lymphocytes % (A) 9 %; MCH 32.2 pg (25.0-35.0); MCHC 34.1 g/dL (31.0-37.0); MCV 94.5 fL (80.0-100.0); Mean Platelet Volume 7.1; Monocytes # (A) 0.6 k/uL (0-1.0); Monocytes % (A) 6 %; Neutrophils % (A) 81 %; Platelet Count 197 k/uL (150-450); RBC 3.85 m/uL (3.80-5.40); RDW 16.3 % (11.5-15.5); WBC 9.9 k/uL (3.8-10.6)
[2019-01-14 12:22] LABS: Albumin 4.5 g/dL (3.5-5.0); C Reactive Protein 82.1 mg/L (<10.0); Calcium 9.2 mg/dL (8.4-10.2); Total Bilirubin 2.3 mg/dL (0.2-1.3); Total Protein 7.9 g/dL (6.3-8.2); Uric Acid 5.9 mg/dL (3.7-7.4)
[2019-01-14 12:26] LABS: Potassium 5.2 mmol/L (3.5-5.1)
--- NOTE | 2019-01-14 12:38 | US ---
EXAMINATION TYPE: US venous doppler duplex LE LT DATE OF EXAM: 01/14/2019 12:29 PM COMPARISON: Bilateral lower extremity venous ultrasound April 16, 2017 CLINICAL HISTORY: Pain. Left foot swelling SIDE PERFORMED: Left TECHNIQUE: The lower extremity deep venous system is examined utilizing real time linear array sonog ceasar with graded compression, doppler sonography and color-flow sonography. VESSELS IMAGED: External Iliac Vein (EIV) Common Femoral Vein Deep Femoral Vein Greater Saphenous Vein * Femoral Vein Popliteal Vein Small Saphenous Vein * Proximal Calf Veins (* superficial vessels) Left Leg: Negative for DVT Grayscale, color doppler, spectral doppler imaging performed of the deep veins of the left lower extr emity. There is normal flow, compressibility, vascular waveforms. IMPRESSION: No ultrasound evidence for acute DVT in the left lower extremity.
--- NOTE | 2019-01-14 13:57 | XR ---
EXAMINATION TYPE: XR chest 2V DATE OF EXAM: 01/14/2019 COMPARISON: Chest x-ray June 10, 2018 HISTORY: History of colon cancer with swelling and pain. TECHNIQUE: Frontal and lateral views of the chest are obtained. FINDINGS: There is chronic parenchymal change without suspicious focal air space opacity, pleural ef fusion, or pneumothorax seen. The cardiac silhouette size remains grossly enlarged with single lead pacemaker. Overlying sternal wires and mediastinal clips are redemonstrated. The osseous structures are intact. IMPRESSION: Cardiomegaly without acute pulmonary process.
--- NOTE | 2019-01-14 13:58 | XR ---
EXAMINATION TYPE: XR foot complete LT DATE OF EXAM: 01/14/2019 CLINICAL HISTORY: Pain and swelling for several days. TECHNIQUE: Frontal, lateral, and oblique images of the left foot are obtained. COMPARISON: Left foot x-ray May 12, 2018 FINDINGS: There is no acute fracture/dislocation evident in the left foot. Interval healing of fract ure deformity second toe noted. Marked hallux valgus positioning first metatarsophalangeal joint rede monstrated. Mild to moderate diffuse subcutaneous edema is again seen. IMPRESSION: As above.
[2019-01-14 15:46] VITALS: BP 124/87; PULSE 78; TEMP 98.7
== END 2019-01-14 15:45 | disposition home or self-care (01) ==
LOC: EC 10:38
DX: R60.0 Localized edema (principal); M79.89 Other specified soft tissue disorders; L53.9 Erythematous condition, unspecified; C18.6 Malignant neoplasm of descending colon; E11.22 Type 2 diabetes mellitus with diabetic chronic kidney disease; N18.3 Chronic kidney disease, stage 3 (moderate); E11.42 Type 2 diabetes mellitus with diabetic polyneuropathy; Z91.041 Radiographic dye allergy status; Z79.01 Long term (current) use of anticoagulants; Z79.84 Long term (current) use of oral hypoglycemic drugs; Z79.899 Other long term (current) drug therapy; Z90.49 Acquired absence of other specified parts of digestive tract; Z95.0 Presence of cardiac pacemaker; Z95.2 Presence of prosthetic heart valve; Z95.828 Presence of other vascular implants and grafts; Z96.1 Presence of intraocular lens; Z98.890 Other specified postprocedural states
CPT/HCPCS: 36415; 71046; 80053; 84550; 85025; 86140; 87040; 99284

== ENCOUNTER → 2019-01-17 | Outpatient (CLI) | payer MEDICARE, BC ==
--- NOTE | 2019-01-17 11:14 | US ---
EXAMINATION TYPE: US abdomen limited DATE OF EXAM: 01/17/2019 COMPARISON: Correlation CT 06/10/2018 CLINICAL HISTORY: 78-year-old female R10.9 Abdominal Pain R94.5 Abnormal LFT. TECHNIQUE: Multiple sonographic images of the right upper quadrant are obtained. FINDINGS: EXAM MEASUREMENTS: Liver Length: 12.6 cm Gallbladder Wall: 0.2 cm CBD: 0.3 cm Right Kidney: 10.3 x4.4 x 4.8 cm Pancreas: visualized portions wnl Liver: multiple cysts throughout both lobes, largest on right measures 4.3 x 3.9 x 5.2 cm. Gallbladder: large shadowing stone measuring at least 3.1 cm, very little lumen seen Evidence for sonographic Kahn's sign: No CBD: wnl Right Kidney: cyst measures 2.5 x 1.7 x 1.7 cm . No hydronephrosis. IMPRESSION: 1. A few scattered hepatic cysts, largest on the right measuring 5.2 cm. 2. Large shadowing gallstone measuring at least 3.1 cm. Sonographic Kahn sign is reported negative. 3. No biliary ductal dilatation.
== END ==
LOC: RADUSWWP 07:30
PROVIDERS: ATTEND Internal Medicine Hematology & Oncology
DX: K76.89 Other specified diseases of liver (principal); K80.20 Calculus of gallbladder without cholecystitis without obstruction; C18.9 Malignant neoplasm of colon, unspecified; Z88.8 Allergy status to other drugs, medicaments and biological substances
CPT/HCPCS: 76705

== ENCOUNTER 2019-01-30 06:26 | Day surgery (SDC) | payer MEDICARE, BC ==
[~2019-01-30 06:26] MED LIST: DEXAMETHASONE SOD PHOSPHATE 10 MG/ML 1 ML VIAL IV ONE; HEPARIN SODIUM,PORCINE 5,000 UNIT/ML 1 ML VIAL SQ ONE; HYDROmorphone 0.5 MG/0.5 ML SYRINGE IVP PRN; LACTATED RINGERS 1,000 ML IV SCH; MORPHINE SULFATE 4 MG/ML SYRINGE IV PRN; ONDANSETRON 4 MG/2 ML VIAL IVP ONE; ceFAZolin IN SWFI 2 GM/20 ML SYRINGE IVP ONE
[2019-01-30 07:07] LABS: Glucose,Whole Blood 109 mg/dL (75-99)
[2019-01-30 07:10] VITALS: RESP 16; TEMP 98
[2019-01-30] MEDS ORDERED: LIDOCAINE 1% 20 ML VIAL (10MG/ML) FOR IV START SQ ONE (07:13)
[2019-01-30] MEDS ORDERED: ONDANSETRON 4 MG/2 ML VIAL IVP ONE (07:15)
[2019-01-30] MEDS ORDERED: DEXAMETHASONE SOD PHOSPHATE 4 MG/ML 1 ML VIAL IVP ONE (07:15)
[2019-01-30 07:27] LABS: INR 1.1 (<1.2); Prothrombin Time 11.3 sec (9.0-12.0)
[2019-01-30] MEDS ORDERED: BUPIVACAIN-EPI 0.5%-1:200,000 30 ML VIAL SQ ONE (07:50)
[2019-01-30] MEDS ORDERED: NEOSTIGMINE 1 MG/ML 10 ML VIAL ONE (07:56)
[2019-01-30] MEDS ORDERED: PROPOFOL 10 MG/ML 20 ML VIAL IV ONE (07:56)
[2019-01-30] MEDS ORDERED: LIDOCAINE 1% INJ 10MG/ML (20 ML MDV) ONE (07:56)
[2019-01-30] MEDS ORDERED: GLYCOPYRROLATE 0.2 MG/ML 2 ML VIAL ONE (07:56)
[2019-01-30] MEDS ORDERED: MIDAZOLAM 2 MG/2 ML VIAL ONE (07:56)
[2019-01-30] MEDS ORDERED: SUCCINYLCHOLINE CHLORIDE 100 MG/5 ML SYR IV ONE (07:56)
[2019-01-30] MEDS ORDERED: ROCURONIUM BROMIDE 10 MG/ML 10 ML VIAL IV ONE (07:56)
[2019-01-30] MEDS ORDERED: fentaNYL (PF) 50 MCG/ML 2 ML AMP ONE (07:56)
--- NOTE | 2019-01-30 08:13 | P.GSHP ---
History of Present Illness H&P Date: 01/30/19 Chief Complaint: Right upper quadrant pain This is a 78-year-old female who presents today for laparoscopically cholecystectomy. Patient's has complaints of right upper quadrant pain. She has a 3 cm stone in the gallbladder. Past Medical History Past Medical History: Cancer, Diabetes Mellitus Additional Past Medical History / Comment(s): DDM type II. Neuropathy bilateral feet. Rheumatic fever 30's. Osteomylitis. Descending colon CA with resection. History of Any Multi-Drug Resistant Organisms: None Reported Past Surgical History: Appendectomy, Bowel Resection, Cardiac Valve Replacement, Hysterectomy, Pacemaker Additional Past Surgical History / Comment(s): 1994 mitral and aortic mechanical valves placed. Pacemakers-has had 2 or 3. Colonoscopy. Debridements bilateral great toe diabetic ulcers. Bilateral cataract removals with lens implants. Past Anesthesia/Blood Transfusion Reactions: No Reported Reaction Additional Past Anesthesia/Blood Transfusion Reaction / Comment(s): Pt has received blood in past without reaction. Type of Cardiac Device: Permanent Pacemaker Device Placement Date:: Pt cannot recall date of last pacer insertion but battery changed 2011 Past Psychological History: No Psychological Hx Reported Smoking Status: Never smoker Past Alcohol Use History: None Reported Past Drug Use History: None Reported - Past Family History Brother(s) Additional Family Medical History / Comment(s): patient states brother had " heart problems" Father History Unknown: Yes Additional Family Medical History / Comment(s): Father committed suicide in his 50s. Mother History Unknown: Yes Family Medical History: No Reported History Additional Family Medical History / Comment(s): Mother was healthy and lived to be 92 yrs old. Medications and Allergies Home Medications Medication Instructions Recorded Confirmed Type Simvastatin [Zocor] 40 mg PO HS 03/18/17 01/24/19 History Cholecalciferol [Vitamin D3] 1,000 unit PO DAILY 04/25/18 01/30/19 History Ferrous Sulfate [Iron (65 MG 325 mg PO BID 04/25/18 01/24/19 History Elemental)] Furosemide [Lasix] 40 mg PO BID 06/03/18 01/24/19 History Warfarin [Coumadin] 2.5 mg PO MOWEFR 06/03/18 01/30/19 History Warfarin [Coumadin] 5 mg PO SUTUTHSA 06/03/18 01/30/19 History Atenolol [Tenormin] 25 mg PO BID #0 06/16/18 01/24/19 Rx hydrALAZINE HCL [Apresoline] 25 mg PO BID #60 tab 06/16/18 01/24/19 Rx Acetaminophen Tab [Tylenol Tab] 1,000 mg PO TID PRN 01/14/19 01/30/19 History Allopurinol [Zyloprim] 100 mg PO DAILY 01/14/19 01/24/19 History Calcitriol [Rocaltrol] 0.25 mcg PO FR 01/14/19 01/24/19 History Cephalexin [Keflex] 500 mg PO QID #40 cap 01/14/19 01/24/19 Rx methylPREDNISolone Dose Pack 24 mg PO DAILY #1 tab 01/14/19 01/30/19 Rx [Medrol Dose Pack] Empagliflozin/Linagliptin 1 tab PO QAM 01/24/19 01/30/19 History [Glyxambi 25 mg-5 mg Tablet] Enoxaparin [Lovenox] 40 mg SQ Q12H 01/24/19 01/30/19 History Spironolactone [Aldactone] 50 mg PO QAM 01/24/19 01/24/19 History Allergies Allergy/AdvReac Type Severity Reaction Status Date / Time Iodinated Contrast- Oral and Allergy Anaphylaxis Verified 01/30/19 06:47 IV Dye [Iodinated Contrast Media - IV Dye] Surgical - Exam Vital Signs Temp Pulse Resp BP Pulse Ox 98.0 F 59 L 16 184/86 96 01/30/19 07:08 01/30/19 07:08 01/30/19 07:08 01/30/19 07:08 01/30/19 07:08 - General well developed, well nourished, no distress - Eyes PERRL - ENT normal pinna - Neck no masses - Respiratory normal expansion - Cardiovascular Rhythm: regular - Abdomen Abdomen: soft, non tender Results - Labs Abnormal Lab Results - Last 24 Hours (Table) 01/30/19 Range/Units 07:04 POC Glucose (mg/dL) 109 H (75-99) mg/dL Assessment and Plan Assessment: Right upper quadrant pain. Cholelithiasis We'll perform laparoscopic cholecystectomy
--- NOTE | 2019-01-30 09:38 | P.OP ---
Date of Procedure: 01/30/19 Preoperative Diagnosis: Cholecystitis Postoperative Diagnosis: Cholecystitis Procedure(s) Performed: Laparoscopic cholecystectomy Laparoscopic liver biopsy Anesthesia: HEMA Surgeon: Felipe Ken Estimated Blood Loss (ml): 5 Pathology: other (Liver biopsy, gallbladder) Condition: stable Disposition: PACU Description of Procedure: The patient was placed on the operating table. The patient received a general endotracheal tube anesthesia. The patients abdomen was prepped and draped in the usual sterile fashion. Through an infraumbilical stab incision, the fascia of the anterior abdominal wall was grasped with a pair of Kochers and then the Veress needle was placed in the peritoneal cavity. Position of the Veress needle was confirmed with positive drop test. The abdomen was then insufflated. After adequate insufflation, the 10 mm trocar was placed in the peritoneal cavity. Following this the laparoscope was placed in the peritoneal cavity. The patient was placed in the head-up, right side up position and then a 5 mm trocar was placed in the right lateral and right subcostal position under direct visualization. A 8 mm trocar was placed in the epigastric position. The gallbladder was grasped in the fundus and infundibulum. Traction on the gallbladder was placed in the lateral and the cephalad positions. The triangle of Calot was visualized.. The cystic duct was bluntly dissected until the union of the cystic duct and common bile duct was seen. The cystic duct was then divided and sealed with the Harmonic scissors. A PDS Endoloop was then placed throughout the cystic duct stump. The cystic artery divided and sealed with the Harmonic scissors. The gallbladder was then removed from the liver bed using Harmonic scissors. Just medial to the gallbladder on the liver was a white nodule. It was unclear what this was. A liver biopsy was performed by using the Harmonic scissors to excise the white nodule. The gallbladder was then extracted through the epigastric port site. The liver biopsy was sent to pathology. Operative field was checked for any bleeding spots and Harmonic scissors was used to coagulate the liver bed. The abdomen was irrigated. The trocars were removed. The skin was closed using interrupted 3-0 Vicryl suture. Dermabond dressing were applied. The patient tolerated the procedure well.
[2019-01-30 09:53] LABS: Glucose,Whole Blood 154 mg/dL (75-99)
[2019-01-30] MEDS ORDERED: LACTATED RINGERS 1,000 ML IV ONE (10:27)
[2019-01-30] MEDS ORDERED: HYDROcodone/APAP 7.5-325MG 1 EACH TAB PO ONE (10:35)
[2019-01-30 11:42] VITALS: BP 151/79; PULSE 57
== END 2019-01-30 12:15 | disposition home or self-care (01) ==
LOC: OR 06:26
PROVIDERS: ATTEND Surgery
DX: E11.42 Type 2 diabetes mellitus with diabetic polyneuropathy (principal); K80.10 Calculus of gallbladder with chronic cholecystitis without obstruction; K76.89 Other specified diseases of liver; K74.1 Hepatic sclerosis; M10.9 Gout, unspecified; I08.0 Rheumatic disorders of both mitral and aortic valves; Z85.038 Personal history of other malignant neoplasm of large intestine; Z95.4 Presence of other heart-valve replacement; Z95.0 Presence of cardiac pacemaker; Z90.49 Acquired absence of other specified parts of digestive tract; Z79.2 Long term (current) use of antibiotics; Z79.01 Long term (current) use of anticoagulants; Z79.52 Long term (current) use of systemic steroids; Z79.899 Other long term (current) drug therapy; Z91.041 Radiographic dye allergy status
CPT/HCPCS: 88304; 88305; 85610; 47562; 47379; J2250; J1644; J1100; J2710; J2405; J2001; J3010; J0330; J2704; J0690

== ENCOUNTER → 2019-03-15 | Outpatient (CLI) | payer MEDICARE, BC ==
[2019-03-15 13:47] LABS: Appearance,Urine Clear (Clear); Bilirubin,Urine Negative (Negative); Blood,Urine Negative (Negative); Color,Urine Light Yellow; Glucose,Urine (UA) 4+ (Negative); HCT 41.3 % (34.0-46.0); HGB 13.7 gm/dL (11.4-16.0); Ketones,Urine Negative (Negative); Leukocyte Esterase,Urine Negative (Negative); MCH 30.9 pg (25.0-35.0); MCHC 33.2 g/dL (31.0-37.0); MCV 92.9 fL (80.0-100.0); Mean Platelet Volume 7.4; Nitrite,Urine Negative (Negative); Platelet Count 220 k/uL (150-450); Protein,Urine Negative (Negative); RBC 4.45 m/uL (3.80-5.40); RDW 14.9 % (11.5-15.5); Specific Gravity,Urine 1.003 (1.001-1.035); Urobilinogen,Urine <2.0 mg/dL (<2.0); WBC 7.7 k/uL (3.8-10.6)
[2019-03-15 19:05] LABS: Parathyroid Hormone Intact 71.8 pg/mL (14.0-72.0)
[2019-03-15 19:20] LABS: Iron Saturation 25.27 (12.00-45.00)
[2019-03-15 19:29] LABS: Vitamin D 25 Hydroxy 40.4 ng/mL (30.0-100.0)
[2019-03-15 19:32] LABS: Albumin 4.8 g/dL (3.80-4.90); Albumin/Globulin Ratio 2.18 (1.60-3.17); Calcium 9.9 mg/dL (8.7-10.3); Globulin 2.2 g/dL (1.6-3.3); Magnesium 2.4 mg/dL (1.5-2.4); Phosphorus 4.7 mg/dL (2.4-5.1); Potassium 4.8 mmol/L (3.5-5.5); Total Bilirubin 1.7 mg/dL (0.3-1.2); Uric Acid 4.7 mg/dL (2.9-7.7)
== END ==
LOC: LABWHC1 12:47
PROVIDERS: ATTEND Internal Medicine
DX: N18.3 Chronic kidney disease, stage 3 (moderate) (principal); D63.1 Anemia in chronic kidney disease; N39.0 Urinary tract infection, site not specified; E21.3 Hyperparathyroidism, unspecified; E55.9 Vitamin D deficiency, unspecified; M10.9 Gout, unspecified; R80.9 Proteinuria, unspecified
CPT/HCPCS: 36415; 80053; 81003; 82043; 82306; 82570; 82728; 83540; 83550; 83735; 83970; 84100; 84550; 85027

== ENCOUNTER → 2019-05-15 | Outpatient (CLI) | payer MEDICARE, BC ==
--- NOTE | 2019-05-15 21:42 | CT ---
EXAMINATION TYPE: CT abdomen pelvis wo con DATE OF EXAM: 05/15/2019 COMPARISON: 06/10/2018 HISTORY: 78-year-old female Left sided abdominal pain. History of colon cancer, observation for metas tases. CT DLP: 641 mGycm. Automated exposure control for dose reduction was used. TECHNIQUE: Contiguous axial scanning of the abdomen and pelvis without IV contrast. Coronal and sagit john reconstructions performed. FINDINGS: Spiculated density inferior left breast near the inframammary fold measures 1.1 cm versus approximate ly 9 mm, previously. Median sternotomy wires are present. Prosthetic mitral valve. Right ventricular pacer lead is demonst rated. Heart is moderately enlarged. Bibasilar interstitial scarring with moderate bronchial wall thickening . Stable patchy density inferior lingula, likely scarring. Small hiatal hernia. Redemonstrated cysts within the liver measuring up to 4.7 cm. There is a tiny right paramedian epigastric fat-containing hernia measuring 2.2 cm wide in the abdomi nal wall defect measuring only 8 mm wide. Cholecystectomy clips. Right kidney shows a 5 mm nonobstructive calculus in the probable 1.6 cm cortical cyst laterally. Left kidney shows an exophytic fluid attenuating lesion from the lateral lower pole measuring 2.9 cm suggesting a cyst, stable from 2018. Spleen with tiny splenule, right adrenal gland, and pancreas appear within normal limits. Stable 1.2 cm nodularity of the left adrenal gland. There is focal fusiform thickening involving the upper left rectus abdominis measuring 4.8 cm wide by 3.7 cm AP by 4.7 cm craniocaudal, new from 06/10/2018. Attenuation is indeterminate and 22 Hounsfield units. No dilated small bowel, free fluid, or free air. No mesenteric or retroperitoneal lymphadenopathy. Postsurgical changes along the cecum. Moderate stool burden. Mild sigmoid diverticulosis. Uterus surgically absent. Multiple pelvic phleboliths. Bladder partially distended. No abnormal fluid collection in the pelvis or pelvic lymphadenopathy seen. Bones: Degenerative dextroconvex scoliosis. Grade 1 spondylolisthesis from L1 throughout S1 levels. H ypertrophic facet arthropathy and degenerative disc disease. IMPRESSION: 1. Postsurgical changes in the region with ileocolonic anastomosis. 2. 4.8 cm fusiform soft tissue density expanding the upper left rectus abdominis musculature. Target ed ultrasound is recommended to further characterize. Intramuscular hematoma and soft tissue metastas is are both in the differential. If this represents vascular soft tissue on ultrasound, tissue sampli ng can BE performed. 3. 1.1 cm spiculated density approximately 7:00 left breast may be minimally larger having measured 9 mm on 06/10/2018. An irregular island of fibroglandular tissue is possible. Targeted ultrasound is r ecommended in order to attempt biopsy. 4. Moderate cardiomegaly, 2.2 cm right paramedian epigastric fat-containing abdominal wall hernia, s mall hiatal hernia, multiple hepatic and bilateral renal cysts, right-sided nephrolithiasis, moderate stool burden, and mild sigmoid diverticulosis.
== END | disposition home or self-care (01) ==
LOC: RADCTMAIN 16:47
PROVIDERS: ATTEND Internal Medicine Hematology & Oncology
DX: C18.2 Malignant neoplasm of ascending colon (principal); K57.30 Diverticulosis of large intestine without perforation or abscess without bleeding; K43.9 Ventral hernia without obstruction or gangrene; K44.9 Diaphragmatic hernia without obstruction or gangrene; N28.1 Cyst of kidney, acquired; N20.0 Calculus of kidney; K56.41 Fecal impaction; K76.89 Other specified diseases of liver; Z91.041 Radiographic dye allergy status; Z98.890 Other specified postprocedural states; T14.8XXA Other injury of unspecified body region, initial encounter
CPT/HCPCS: 74176

== ENCOUNTER → 2019-06-05 | Outpatient (CLI) | payer MEDICARE, BC ==
--- NOTE | 2019-06-05 13:10 | US ---
EXAMINATION TYPE: US abdomen complete DATE OF EXAM: 06/05/2019 COMPARISON: CT, US 2019 CLINICAL HISTORY: R93.9 LUQ. Lump felt LUQ. Patient states she has felt this since GB surgery. EXAM MEASUREMENTS: Liver Length: 16.0 cm Gallbladder Wall: Surgically absent cm CBD: 0.6 cm Spleen: 11.2 cm Right Kidney: 10.2 x 4.6 x 4.4 cm Left Kidney: 10.0 x 5.0 x 4.2 cm Pancreas: Partially Obscured by bowel gas Liver: With multiple liver cysts. Largest = 4.1 x 3.3 x 3.0 cm Gallbladder: Surgically absent Evidence for sonographic Kahn's sign: No CBD: wnl Spleen: wnl Right Kidney: Decreased renal cortex. Lateral cyst = 2.1 x 1.7 x 1.6 cm, 1.1 x 1.0 x 0.8 cm lower po le cyst, echogenic structure lower pole = 0.5 cm Left Kidney: Decreased renal cortex. Pedunculated lateral cyst = 3.1 x 3.3 x 2.3 cm. 0.6 cm upper po le cyst. Upper IVC: wnl Abd Aorta: wnl Solid Mass seen at area of lump, LUQ = 5.2 x 4.8 x 4.2 cm The liver is homogenous. Multiple hepatic cysts are noted. The intrahepatic portion of the IVC and pr oximal abdominal aorta are within normal limits. There is no evidence of cholelithiasis. Common dee dee e duct is unremarkable. The visualized portions of the pancreas are homogenous. The spleen is unrem arkable. Renal parenchymal thinning.Bilateral renal cysts noted. IMPRESSION: 1. Multiple simple hepatic and renal cysts. 2. Solid appearing mass at the area of clinical concern left upper quadrant at the level of the left upper rectus abdominis musculature. I suspect soft tissue metastasis. Tissue diagnosis is recommended .
== END | disposition home or self-care (01) ==
LOC: RADUSWWP 08:38
PROVIDERS: ATTEND Internal Medicine Hematology & Oncology
DX: K76.89 Other specified diseases of liver (principal); N28.1 Cyst of kidney, acquired
CPT/HCPCS: 76700

== ENCOUNTER 2019-06-06 02:56 | Emergency (ER) | payer MEDICARE, BC ==
[2019-06-06 03:09] VITALS: RESP 18
[2019-06-06] MEDS ORDERED: MORPHINE SULFATE 4 MG/ML SYRINGE IVP STA (04:25)
--- NOTE | 2019-06-06 04:27 | ED ---
Abdominal Pain HPI - General Chief Complaint: Abdominal Pain Stated Complaint: Abd Pain Time Seen by Provider: 06/06/19 04:24 Source: patient Mode of arrival: ambulatory Limitations: no limitations - History of Present Illness Initial Comments: Fernanda is an 79-year-old female with unfortunate medical history of colon cancer and recurrent abdominal mass that is developed rapidly over the past couple of months. In the past couple of weeks patient has had a computed tomography scan, ultrasound and lab work to evaluate this mass is a his been causing her significant abdominal discomfort. Patient reports that she's been taking a single Tylenol every 2-3 hours for the pain however her pain is not managed. Patient is on multiple medications and very anxious about any medication interactions so she has not tried any stronger medications. Patient has been unable to sleep for a couple of nights due to discomfort. She reports that the discomforts no different in nature than what she's been experiencing for a couple weeks however it just has become unbearable at this time. She is scheduled to see Dr. Baum her surgeon later today and will follow up with her javascript ui developer for further management of chronic pain related to cancer. At this time patient is just requesting her pain be managed acutely. - Related Data Home Medications Medication Instructions Recorded Confirmed Simvastatin [Zocor] 40 mg PO HS 03/18/17 01/24/19 Cholecalciferol [Vitamin D3 (25 1,000 unit PO DAILY 04/25/18 01/30/19 Mcg = 1000 Iu)] Ferrous Sulfate [Iron (65 MG 325 mg PO BID 04/25/18 01/24/19 Elemental)] Furosemide [Lasix] 40 mg PO BID 06/03/18 01/24/19 Warfarin [Coumadin] 2.5 mg PO MOWEFR 06/03/18 01/30/19 Warfarin [Coumadin] 5 mg PO SUTUTHSA 06/03/18 01/30/19 Acetaminophen Tab [Tylenol Tab] 1,000 mg PO TID PRN 01/14/19 01/30/19 Allopurinol [Zyloprim] 100 mg PO DAILY 01/14/19 01/24/19 Calcitriol [Rocaltrol] 0.25 mcg PO FR 01/14/19 01/24/19 Empagliflozin/Linagliptin 1 tab PO QAM 01/24/19 01/30/19 [Glyxambi 25 mg-5 mg Tablet] Enoxaparin [Lovenox] 40 mg SQ Q12H 01/24/19 01/30/19 Spironolactone [Aldactone] 50 mg PO QAM 01/24/19 01/24/19 Previous Rx's Medication Instructions Recorded Atenolol [Tenormin] 25 mg PO BID #0 06/16/18 hydrALAZINE HCL [Apresoline] 25 mg PO BID #60 tab 06/16/18 Cephalexin [Keflex] 500 mg PO QID #40 cap 01/14/19 methylPREDNISolone Dose Pack 24 mg PO DAILY #1 tab 01/14/19 [Medrol Dose Pack] Docusate [Colace] 100 mg PO BID #20 capsule 01/30/19 HYDROcodone/APAP 7.5-325MG [[place] 1 tab PO Q6HR PRN 3 Days #10 tab 01/30/19 7.5-325] Allergies Allergy/AdvReac Type Severity Reaction Status Date / Time Iodinated Contrast- Oral and Allergy Anaphylaxis Verified 06/06/19 03:04 IV Dye [Iodinated Contrast Media - IV Dye] Review of Systems ROS Statement: Those systems with pertinent positive or pertinent negative responses have been documented in the HPI. ROS Other: All systems not noted in ROS Statement are negative. Past Medical History Past Medical History: Cancer, Diabetes Mellitus, Hypertension Additional Past Medical History / Comment(s): DDM type II. Neuropathy bilateral feet. Rheumatic fever 30's. Osteomylitis. Descending colon CA with resection. History of Any Multi-Drug Resistant Organisms: None Reported Past Surgical History: Appendectomy, Bowel Resection, Cardiac Valve Replacement, Cholecystectomy, Hysterectomy, Pacemaker Additional Past Surgical History / Comment(s): 1994 mitral and aortic mechanical valves placed. Pacemakers-has had 2 or 3. Colonoscopy. Debridements bilateral great toe diabetic ulcers. Bilateral cataract removals with lens implants. Past Anesthesia/Blood Transfusion Reactions: No Reported Reaction Additional Past Anesthesia/Blood Transfusion Reaction / Comment(s): Pt has received blood in past without reaction. Type of Cardiac Device: Permanent Pacemaker Device Placement Date:: Pt cannot recall date of last pacer insertion but battery changed 2011 Past Psychological History: No Psychological Hx Reported Smoking Status: Never smoker Past Alcohol Use History: None Reported Past Drug Use History: None Reported - Past Family History Brother(s) Additional Family Medical History / Comment(s): patient states brother had " heart problems" Father History Unknown: Yes Additional Family Medical History / Comment(s): Father committed suicide in his 50s. Mother History Unknown: Yes Family Medical History: No Reported History Additional Family Medical History / Comment(s): Mother was healthy and lived to be 92 yrs old. General Exam - General Exam Comments Initial Comments: Physical Exam GENERAL: Chronically ill-appearing HENT: Normocephalic, Atraumatic. EYES: PERRL, EOMI PULMONARY: Unlabored respirations. No audible rales rhonchi or wheezing was noted. CARDIOVASCULAR: There is a regular rate and rhythm without any murmurs gallops or rubs. ABDOMEN: Palpable mass, nonpulsatile Multiple well-healed surgical incisions Abdomen is not peritoneal SKIN: Skin is clear with no lesions or rashes and otherwise unremarkable. : Deferred NEUROLOGIC: Patient is alert and oriented x3. Moving all extremities spontaneously MUSCULOSKELETAL: Normal extremities with adequate strength and full range of motion. No lower extremity swelling or edema. No calf tenderness. PSYCHIATRIC: Normal psychiatric evaluation Limitations: no limitations Course Vital Signs 06/06/19 06/06/19 03:04 05:43 Temperature 98.2 F 98 F Pulse Rate 64 60 Respiratory 18 18 Rate Blood Pressure 190/74 165/78 O2 Sat by Pulse 99 93 L Oximetry Medical Decision Making - Medical Decision Making The patient was seen and evaluated, history is obtained from patient and her daughter at bedside who is a nurse. At this time the patient has had a very thorough evaluation for her abdominal pain in his been found that she has an abdominal wall masses concerning for possible recurrent metastatic colon cancer. Patient daughter would like to decline labs or imaging as they have undergone a thorough workup there just asking for pain management. IM morphine was ordered for the patient and a starter pack of Tylenol 3 will be given. Patient will see her surgeon later in the day today. Disposition Clinical Impression: Abdominal pain Disposition: HOME SELF-CARE Condition: Stable Instructions (If sedation given, give patient instructions): Abdominal Pain (ED) Is patient prescribed a controlled substance at d/c from ED?: No Referrals: Home Garza MD [Primary Care Provider] - 1-2 days
[2019-06-06] MEDS ORDERED: ACET/COD 300 MG/30 MG STARTER PACK 6 TAB BTL PO STA (04:29)
[2019-06-06] MEDS ORDERED: ONDANSETRON ODT 4 MG TAB PO STA (04:39)
[2019-06-06] MEDS ORDERED: ONDANSETRON 4 MG ODT STARTER PACK 2 TAB BTL PO STA (04:39)
[2019-06-06 05:45] VITALS: BP 165/78; PULSE 60; TEMP 98
== END 2019-06-06 05:47 | disposition home or self-care (01) ==
LOC: EC 02:56 → SUPCPDRO 02:56 → EC 05:47
DX: R10.9 Unspecified abdominal pain (principal); R19.00 Intra-abdominal and pelvic swelling, mass and lump, unspecified site; I10 Essential (primary) hypertension; E11.42 Type 2 diabetes mellitus with diabetic polyneuropathy; M86.9 Osteomyelitis, unspecified; Z53.8 Procedure and treatment not carried out for other reasons; Z79.01 Long term (current) use of anticoagulants; Z79.84 Long term (current) use of oral hypoglycemic drugs; Z79.899 Other long term (current) drug therapy; Z91.041 Radiographic dye allergy status; Z90.49 Acquired absence of other specified parts of digestive tract; Z85.038 Personal history of other malignant neoplasm of large intestine; Z95.4 Presence of other heart-valve replacement; Z95.0 Presence of cardiac pacemaker; Z98.890 Other specified postprocedural states
CPT/HCPCS: 99283; 96374; J2270; S0119

== ENCOUNTER 2019-06-08 07:19 | Day surgery (SDC) | payer MEDICARE, BC ==
[2019-06-07 11:32] VITALS: BMI 32.7
[~2019-06-08 07:19] MED LIST changes: -DEXAMETHASONE SOD PHOSPHATE 10 MG/ML 1 ML VIAL IV ONE; -HYDROmorphone 0.5 MG/0.5 ML SYRINGE IVP PRN; -LACTATED RINGERS 1,000 ML IV SCH; -MORPHINE SULFATE 4 MG/ML SYRINGE IV PRN; -ONDANSETRON 4 MG/2 ML VIAL IVP ONE; +Pre Op ABX Message 1 EACH MISC MISCELLANE ONE; -ceFAZolin IN SWFI 2 GM/20 ML SYRINGE IVP ONE
[2019-06-08 07:41] VITALS: TEMP 97.6
[2019-06-08] MEDS ORDERED: LIDOCAINE 1% 20 ML VIAL (10MG/ML) FOR IV START INTRADERMA ONE (07:44)
[2019-06-08] MEDS ORDERED: LACTATED RINGERS 1,000 ML IV ONE (07:53)
[2019-06-08] MEDS ORDERED: ONDANSETRON 4 MG/2 ML VIAL IVP ONE (07:53)
[2019-06-08 07:55] LABS: Glucose,Whole Blood 120 mg/dL (75-99)
--- NOTE | 2019-06-08 08:20 | P.GSHP ---
History of Present Illness H&P Date: 06/08/19 Chief Complaint: Right upper quadrant abdominal wall mass This is a 79-year-old female who presents today for excision of a right upper quadrant abdominal wall mass. Patient developed pain and tenderness over the mass. The mass measures prostate 5 cm in diameter. Past Medical History Past Medical History: Cancer, Heart Failure, Diabetes Mellitus, GERD/Reflux, Hypertension Additional Past Medical History / Comment(s): Neuropathy bilateral feet. Rheumatic fever 30's. HX OF GOUT, Descending colon CA with resection. History of Any Multi-Drug Resistant Organisms: None Reported Past Surgical History: Appendectomy, Bowel Resection, Cardiac Valve Replacement, Cholecystectomy, Hysterectomy, Pacemaker Additional Past Surgical History / Comment(s): 1994 mitral and aortic mechanical valves placed. Pacemakers-has had 2 or 3. Colonoscopy. Debridements bilateral great toe diabetic ulcers. Bilateral cataract removals with lens implants. Past Anesthesia/Blood Transfusion Reactions: No Reported Reaction Additional Past Anesthesia/Blood Transfusion Reaction / Comment(s): Pt has rece ived blood in past without reaction. Type of Cardiac Device: Permanent Pacemaker Device Placement Date:: Pt cannot recall date of last pacer insertion but battery changed 2011 Smoking Status: Never smoker - Past Family History Brother(s) Additional Family Medical History / Comment(s): patient states brother had " heart problems" Father History Unknown: Yes Additional Family Medical History / Comment(s): Father committed suicide in his 50s. Mother History Unknown: Yes Family Medical History: No Reported History Additional Family Medical History / Comment(s): Mother was healthy and lived to be 92 yrs old. Medications and Allergies Home Medications Medication Instructions Recorded Confirmed Type Simvastatin [Zocor] 40 mg PO HS 03/18/17 06/08/19 History Cholecalciferol [Vitamin D3 (25 1,000 unit PO DAILY 04/25/18 06/08/19 History Mcg = 1000 Iu)] Ferrous Sulfate [Iron (65 MG 325 mg PO BID 04/25/18 06/08/19 History Elemental)] Furosemide [Lasix] 40 mg PO BID 06/03/18 06/08/19 History Warfarin [Coumadin] 2.5 mg PO DAILY 06/03/18 06/08/19 History Atenolol [Tenormin] 25 mg PO BID #0 06/16/18 06/08/19 Rx hydrALAZINE HCL [Apresoline] 25 mg PO BID #60 tab 06/16/18 06/08/19 Rx Allopurinol [Zyloprim] 100 mg PO DAILY 01/14/19 06/08/19 History Calcitriol [Rocaltrol] 0.25 mcg PO FR 01/14/19 06/08/19 History Empagliflozin/Linagliptin 1 tab PO QAM 01/24/19 06/08/19 History [Glyxambi 25 mg-5 mg Tablet] Spironolactone [Aldactone] 25 mg PO BID 01/24/19 06/08/19 History Docusate [Colace] 100 mg PO BID #20 capsule 01/30/19 06/08/19 Rx Acetaminophen-Codeine 300-30mg 1 tab PO Q6H PRN 06/07/19 06/08/19 History [Tylenol w/codeine #3] Omeprazole [PriLOSEC] 40 mg PO DAILY 06/07/19 06/08/19 History Ondansetron [Zofran] 4 mg PO Q8HR PRN 06/07/19 06/08/19 History Ranitidine HCl [Zantac] 75 mg PO BID 06/07/19 06/08/19 History Allergies Allergy/AdvReac Type Severity Reaction Status Date / Time Iodinated Contrast- Oral and Allergy Anaphylaxis Verified 06/07/19 11:22 IV Dye [Iodinated Contrast Media - IV Dye] Surgical - Exam Vital Signs Temp Pulse Resp BP Pulse Ox 97.6 F 82 16 161/77 97 06/08/19 07:38 06/08/19 07:38 06/08/19 07:38 06/08/19 07:38 06/08/19 07:38 - General well developed, well nourished, no distress - Eyes PERRL - ENT normal pinna - Neck no masses - Respiratory normal expansion - Cardiovascular Rhythm: regular - Abdomen 5 cm mass located right upper quadrant. The mass is firm and tender. Abdomen: soft Results - Labs Abnormal Lab Results - Last 24 Hours (Table) 06/08/19 Range/Units 07:50 POC Glucose (mg/dL) 120 H (75-99) mg/dL Assessment and Plan Assessment: Right upper quadrant abdominal wall mass. We'll perform excision.
[2019-06-08 08:27] LABS: INR 2.2 (<1.2); Prothrombin Time 21.3 sec (9.0-12.0)
[2019-06-08] MEDS ORDERED: LIDOCAINE 1% INJ 10MG/ML (20 ML MDV) ONE (08:50)
[2019-06-08] MEDS ORDERED: ESMOLOL 100 MG/10 ML VIAL ONE (08:50)
[2019-06-08] MEDS ORDERED: fentaNYL (PF) 50 MCG/ML 2 ML AMP ONE (08:50)
[2019-06-08] MEDS ORDERED: ePHEDrine SULFATE/0.9% NACL/PF 50 MG/5 ML SYRINGE IV ONE (08:50)
[2019-06-08] MEDS ORDERED: PROPOFOL 10 MG/ML 20 ML VIAL IV ONE (08:50)
[2019-06-08] MEDS ORDERED: BUPIVACAINE (PF) 0.5% 30 ML VIAL SQ ONE (09:10)
--- NOTE | 2019-06-08 09:44 | P.OP ---
Date of Procedure: 06/08/19 Preoperative Diagnosis: Abdominal wall mass Postoperative Diagnosis: Abdominal wall mass is suspicious for metastatic Procedure(s) Performed: Excision of abdominal wall mass Anesthesia: HEMA Surgeon: Felipe Ken Estimated Blood Loss (ml): 10 Pathology: other (Abdominal wall mass) Condition: stable Disposition: PACU Description of Procedure: The patient's placed on the operating table in the supine position. She received general anesthesia. Her abdomen was prepped and draped usual fashion. Patient had a 5 cm abdominal wall mass located in the left upper quadrant. The skin was incised over the mass. Using blunt and sharp dissection with cautery the fascia exposed. The mass appeared to be below the fascia. The fascia was then opened and then the mass was exposed. The mass appeared to have a homogeneous amorphous pink fleshy appearance suspicious for a metastatic adenocarcinoma was the mass measures 5 cm in diameter. The mass was excised using sharp dissection with cautery was used for venous stasis. The fascia was closed with 0 Vicryl. Domenico's fascia closed with 3-0 Vicryl. Skin was closed running 3-0 Monocryl suture. Dermabond dressings was applied.
[2019-06-08 10:08] LABS: Glucose,Whole Blood 113 mg/dL (75-99)
[2019-06-08] MEDS ORDERED: Acetaminophen-Codeine 300-30mg TAB PO ONE (10:55)
[2019-06-08 11:56] VITALS: BP 130/80; PULSE 67; RESP 16
== END 2019-06-08 12:15 | disposition home or self-care (01) ==
LOC: OR 07:19
PROVIDERS: ATTEND Surgery
DX: C49.4 Malignant neoplasm of connective and soft tissue of abdomen (principal); Z85.038 Personal history of other malignant neoplasm of large intestine; Z90.49 Acquired absence of other specified parts of digestive tract; E11.42 Type 2 diabetes mellitus with diabetic polyneuropathy; I11.0 Hypertensive heart disease with heart failure; I50.9 Heart failure, unspecified; E78.5 Hyperlipidemia, unspecified; K21.9 Gastro-esophageal reflux disease without esophagitis; M10.9 Gout, unspecified; Z95.0 Presence of cardiac pacemaker; Z95.2 Presence of prosthetic heart valve; Z79.01 Long term (current) use of anticoagulants; Z79.891 Long term (current) use of opiate analgesic; Z79.84 Long term (current) use of oral hypoglycemic drugs; Z79.899 Other long term (current) drug therapy; Z91.041 Radiographic dye allergy status; Z98.42 Cataract extraction status, left eye; Z98.41 Cataract extraction status, right eye; Z96.1 Presence of intraocular lens
CPT/HCPCS: 22901; 88305; 85610; 88342; 88341; J1644; J2405; J2001; J3010; J2704

== ENCOUNTER → 2019-06-17 | Outpatient (CLI) | payer MEDICARE, BC ==
--- NOTE | 2019-06-17 16:19 | PE ---
EXAMINATION TYPE: PET CT fusion skull to thigh DATE OF EXAM: 06/17/2019 COMPARISON: CT abdomen and pelvis May 15, 2019 and older CTs. No prior PET studies at this [facility]. HISTORY: History of right colon cancer completed chemotherapy December 2018 with surgery in May 2019 . TECHNIQUE: Following the intravenous administration of 10.83 mCi of F-18 FDG, whole body images are performed from the skull base to the midthigh. Images are reviewed on the computer in the coronal, a xial, and sagittal planes. Reconstructed rotating images are created on independent workstation and reviewed on the computer. A noncontrast CT is performed in conjunction with the PET scan. SCAN: Subsequent Scan FINDINGS: SKULL BASE AND NECK: Injection site left elbow. No suspicious areas of abnormal hypermetabolic uptak e. CHEST, MEDIASTINUM, AND HILAR REGION: No areas of suspicious hypermetabolic uptake. ABDOMEN AND PELVIS: At the left anterior abdominal wall there is some ill-defined fluid and fat stran ding involving the left rectus axial image 162 with mild hypermetabolic uptake, max SUV is 4.2, suspe ct postsurgical change with possible localized soft tissue infection. Correlate clinically. Smaller s ubcentimeter focus right rectus sheath axial image 161 has max SUV of 2.34 uncertain etiology. No suspicious intra-abdominal or intrapelvic hypermetabolic uptake. OSSEOUS STRUCTURES: No suspicious hypermetabolic uptake. OTHER CT: Generalized atrophy and chronic small vessel ischemic change in the visualized brain parenc hyma. Fairly moderate calcified plaque bilateral carotid bulb level. Redemonstration of marked cardiomegaly with severe biatrial dilatation and moderate left ventricular dilatation. Multi lead pacemaker redemonstrated. Numerous thin-walled cysts throughout the liver are present. Cholecystectomy clips are noted. Some co rtical thinning in both kidneys is seen. Surgical sutures from right-sided partial colectomy with bow el anastomosis are noted. Uterus is surgically absent or markedly atrophic. Scattered pelvic phleboli ths. Scattered occasional colonic diverticula. Moderate to severe calcified plaque of the aorta extends into smaller branch vessels. Multilevel spur ring in the spine. Facet arthropathy lower lumbar levels. IMPRESSION: Presumed postsurgical change involving anterior abdominal wall with likely resolving sero ma. Cannot rule out soft tissue infection at this level. Postsurgical change to right colon noted. No suspicious hypermetabolic uptake identified to suggest metastatic malignancy.
== END | disposition home or self-care (01) ==
LOC: RADPETMAIN 07:41
PROVIDERS: ATTEND Internal Medicine Hematology & Oncology
DX: C18.2 Malignant neoplasm of ascending colon (principal); Z92.21 Personal history of antineoplastic chemotherapy; Z90.49 Acquired absence of other specified parts of digestive tract
CPT/HCPCS: 78815; A9552

== ENCOUNTER → 2019-06-19 | Outpatient (CLI) | payer MEDICARE, BC ==
--- NOTE | 2019-06-19 11:32 | MM ---
Reason for exam: clinical finding. Last mammogram was performed 1 year and 11 months ago. History: Patient is postmenopausal. Family history of premenopausal breast cancer in daughter at age 40. Benign right US cyst aspiration of the right breast, March 15, 2008. Took hormonal contraceptives for 10 years. Took estrogen for 34 years beginning at age 36. Physical Findings: Nurse did not find any significant physical abnormalities on exam. MG 3D Diag Mammo W/Cad SHARRI Bilateral CC and MLO view(s) were taken. Prior study comparison: July 23, 2017, bilateral MG 3d screening mammo w/cad. June 24, 2016, right breast MG work up mamm w CAD RT. The breast tissue is heterogeneously dense. This may lower the sensitivity of mammography. There are two adjacent 3mm masses in the upper outer quadrant at middle depth. Ultrasound will be performed. No correlate for inferior breast CT finding and ultrasound will also be performed for this. Stable right upper outer quadrant focal asymmetry. Benign appearing bilateral calcifications. These results were verbally communicated with the patient and result sheet given to the patient on 06/19/19. ASSESSMENT: Incomplete: need additional imaging evaluation, BI-RAD 0 RECOMMENDATION: Ultrasound of the left breast. (all quadrants except upper inner quadrant)
--- NOTE | 2019-06-19 11:36 | USB ---
Reason for exam: additional evaluation requested from abnormal screening. History: Patient is postmenopausal. Family history of premenopausal breast cancer in daughter at age 40. Benign right US cyst aspiration of the right breast, March 15, 2008. Took hormonal contraceptives for 10 years. Took estrogen for 34 years beginning at age 36. US Breast Limited LT Left limited breast ultrasound including focal area of concern, retroareolar and axilla demonstrates a 0.5 x 0.6 x 0.3cm oval, cystic cluster, benign appearing at 12 o'clock, a 0.3 x 0.3 x 0.2cm oval, cystic lesion, benign appearing at 1 o'clock, a 0.4 x 0.3 x 0.3cm oval, hypoechoic lesion at 5 o'clock questionable small cyst, a 1.3 x 0.8 x 1.1cm taller than wide, irregular, solid, hypoechoic lesion, highly suspicious at 5 o'clock, a 0.3 x 0.2 x 0.2cm oval, solid, hyperechoic lesion, likely lipoma at 7 o'clock, a 0.4 x 0.4 x 0.2cm oval, solid, hyperechoic lesion, likely lipoma at 7 o'clock and a 1.4 x 1.0 x 0.7cm axilla node. These results were verbally communicated with the patient and result sheet given to the patient on 06/19/19. ASSESSMENT: Highly suggestive of malignancy, BI-RAD 5 RECOMMENDATION: Ultrasound core biopsy of the left breast. (5 o'clock) Called Dr. Barajas with mammographic findings and has scheduled an appointment for the patient for 06/29/19 at 2:[address] Boles. PRELIMINARY REPORT CALLED AND FAXED TO DR. BOLES ON 06/19/19.
== END | disposition home or self-care (01) ==
LOC: RADMAMWWP 09:06
PROVIDERS: ATTEND Internal Medicine Hematology & Oncology
DX: N63.0 Unspecified lump in unspecified breast (principal); R93.9 Diagnostic imaging inconclusive due to excess body fat of patient; R92.8 Other abnormal and inconclusive findings on diagnostic imaging of breast
CPT/HCPCS: 77066; 76642; G0279; 77062

== ENCOUNTER → 2019-07-25 | Day surgery (SDC) | payer MEDICARE, BC ==
[2019-07-25 12:08] LABS: Partial Thromboplastin Time 26.8 sec (22.0-30.0); Prothrombin Time 10.8 sec (9.0-12.0)
[2019-07-25 12:18] VITALS: RESP 16; BMI 27.2
--- NOTE | 2019-07-25 14:02 | USB ---
EXAMINATION TYPE: US biopsy breast VAD LT, MG diagnostic mammo LT wo CAD DATE OF EXAM: 07/25/2019 CLINICAL HISTORY: R92.8 Abn mammo. TECHNIQUE: Ultrasound guided core biopsy of left breast. COMPARISON: Left breast ultrasound dated 06/19/2019 FINDINGS: The procedure of ultrasound guided core biopsy was explained to the patient. Benefits, alternatives, and risks were discussed. An informed consent was then obtained. Preprocedural timeout was performed. The patient was placed in supine positioning for imaging and for the procedure. The overlying skin was prepped and draped in usual sterile fashion. 10 cc of 1% lidocaine was used as anesthetic into the skin and subcutaneous tissue with administration of 10 cc of lidocaine with epinephrine in the deeper subcutaneous tissues up to a highly suspicious 1.3 x 0.8 x 1.1 cm mass at the 5:00 position in the left breast. Under ultrasound guidance, a 12-gauge vacuum assisted biopsy gun device was used to obtain 6 core samples. Following this, a coil-shaped biopsy marker was left in the mass. Postprocedural mammogram could not identify the biopsy marker given patient positioning and location of the biopsy, however this was quickly seen on ultrasound. If needle localization is necessary ultrasound-guided needle localization can be performed. The patient tolerated the procedure well without any immediate complication. The patient was kept in the radiology department for short stay after the procedure and then discharged home in stable condition. IMPRESSION: Successful, uncomplicated ultrasound guided core biopsy of a highly suspicious 1.3 x 0.8 x 1.1 cm mass at the 5:00 position in the left breast, full pathology results to follow. Pathology Results: Malignant LEFT BREAST, CORE BIOPSY: Invasive ductal carcinoma, Grade 2. See Surgical Pathology Cancer Case Summary and Comment. Recommendation Surgical consult of the left breast. (Definitive surgical and medical management) [facility]
[2019-07-25 14:43] VITALS: BP 152/75; PULSE 67; TEMP 97.6
== END ==
LOC: RADUSWWP 11:15
PROVIDERS: ATTEND Internal Medicine Hematology & Oncology
DX: C50.512 Malignant neoplasm of lower-outer quadrant of left female breast (principal); C18.9 Malignant neoplasm of colon, unspecified; Z92.3 Personal history of irradiation
CPT/HCPCS: 88305; 85610; 85730; 88342; 88341; 77065; 19083; A4648; J2001

== ENCOUNTER → 2019-10-19 | Outpatient (CLI) | payer MEDICARE, BC ==
[2019-10-19 16:37] LABS: African American GFR (CKD) 49.1 (60.0-200.0); Albumin 4.5 g/dL (3.80-4.90); Albumin/Globulin Ratio 2.14 (1.60-3.17); Anion Gap 11.7 mmol/L (4.00-12.00); BUN/Creat Ratio 23.33 Ratio (12.00-20.00); Calcium 9.4 mg/dL (8.7-10.3); Carbon Dioxide 25.3 mmol/L (21.6-31.8); Chol/HDL Ratio 3.33; Globulin 2.1 g/dL (1.6-3.3); LDL Cholesterol,Calculated 68.8 mg/dL (0.0-131.0); Non-African American GFR(CKD) 42.3 (60.0-200.0); Potassium 4.3 mmol/L (3.5-5.5); Total Bilirubin 1.5 mg/dL (0.3-1.2); Total Protein 6.6 g/dL (6.2-8.2); VLDL Calculation 29.2 mg/dL (5.00-40.00)
== END | disposition home or self-care (01) ==
LOC: LABWHC1 09:25
PROVIDERS: ATTEND Internal Medicine Interventional Cardiology
DX: E78.2 Mixed hyperlipidemia (principal)
CPT/HCPCS: 36415; 80053; 80061

== ENCOUNTER → 2020-02-19 | Outpatient (CLI) | payer MEDICARE, BC ==
--- NOTE | 2020-02-20 08:37 | CT ---
EXAMINATION TYPE: CT abdomen pelvis wo con DATE OF EXAM: 02/19/2020 COMPARISON: PET CT 06/17/2019 HISTORY: 79-year-old female C18.2, history of colon cancer, Follow up scan. CT DLP: 337.9 mGycm. Automated exposure control for dose reduction was used. TECHNIQUE: Contiguous axial scanning of the abdomen and pelvis without IV contrast. Coronal and sagit john reconstructions performed. FINDINGS: Heart remains mild to moderately enlarged. Median sternotomy wires. Right ventricular pacer lead. Que stion prosthetic mitral valve. Mild patchy peripheral interstitial density in the lower lungs appears chronic. No pleural effusion. Multiple hepatic hypodensities, unchanged from 06/17/2019, largest on the left lobe measures 2.9 cm and in the right lobe measures 4.3 cm. Omental fat-containing ventral abdominal wall hernia, anterior right upper abdomen measures 2.3 cm. Postsurgical change along the left mid abdomen with a focal masslike density involving the abdominal wall musculature measuring 5.3 cm craniocaudal by 3.5 cm wide by 2.7 cm AP. This previously measured 4.3 cm wide and 3.2 cm AP. Improvement in the previous inflammatory changes within the overlying subc utaneous adipose layer. Postoperative seroma is favored given decrease in size but follow-up is recom mended to ensure continued involution. Gallbladder surgically absent Renal hypodensities redemonstrated, measuring up to 1.8 cm on the right and 2.8 cm on the left sugges ting cysts. 4 mm nonobstructive right lower pole renal calculus. Mild thickening left adrenal gland is unchanged. Spleen and atrophic pancreas show no gross abnormal mobility. Postsurgical changes along the lower right side of the colon. No significant stool burden. Mild diver ticulosis of the sigmoid colon. No pericolic inflammatory change. No mesenteric or retroperitoneal lymphadenopathy. Moderate prostatic calcifications abdominal aorta and iliac arteries. Bladder partially distended. Uterus surgically absent. Neither ovary is visualized. Multiple pelvic f luid was. No abnormal fluid collection in the pelvis or pelvic lymphadenopathy. Bones: Mild degenerative changes at the hips. Multilevel degenerative disc disease and hypertrophic f acet arthropathy throughout the lumbar spine. Grade 1 retrolistheses at L1-L2, L2-L3, L3-L4. IMPRESSION: 1. Redemonstrated postsurgical changes along the lower aspect of the right side of the colon. 2. Additional suspected postsurgical change along the anterior left mid abdomen. Focal masslike dens ity remains within the abdominal wall musculature here currently measuring 3.5 x 2.7 cm versus 4.3 x 3.2 cm, previously. Decreasing size favors slowly involuting postoperative collection/seroma rather t main neoplasm. The inflammatory changes in the overlying adipose layer are also improved. Ongoing foll ow-up recommended to ensure continued involution. 3. Otherwise, no suspicious lymphadenopathy or evidence for recurrence in the abdomen or pelvis. Hep atic hypodensities are unchanged suggesting cysts.
== END | disposition home or self-care (01) ==
LOC: RADCTMAIN 13:24
PROVIDERS: ATTEND Internal Medicine Hematology & Oncology
DX: C18.2 Malignant neoplasm of ascending colon (principal); R19.00 Intra-abdominal and pelvic swelling, mass and lump, unspecified site; Z91.041 Radiographic dye allergy status; Z98.890 Other specified postprocedural states
CPT/HCPCS: 74176

== ENCOUNTER → 2020-06-06 | Outpatient (CLI) | payer MEDICARE, BC ==
[2020-06-06 21:24] LABS: African American GFR (CKD) 40.5 (60.0-200.0); Albumin 4.7 g/dL (3.80-4.90); Albumin/Globulin Ratio 1.88 (1.60-3.17); Anion Gap 13.4 mmol/L (4.00-12.00); BUN/Creat Ratio 24.29 Ratio (12.00-20.00); Calcium 9.6 mg/dL (8.7-10.3); Carbon Dioxide 27.6 mmol/L (21.6-31.8); Chol/HDL Ratio 3.03; Globulin 2.5 g/dL (1.6-3.3); LDL Cholesterol,Calculated 50.6 mg/dL (0.0-131.0); Non-African American GFR(CKD) 34.9 (60.0-200.0); Potassium 4.5 mmol/L (3.5-5.5); Total Bilirubin 1.5 mg/dL (0.2-1.2); Total Protein 7.2 g/dL (6.2-8.2); VLDL Calculation 30.4 mg/dL (5.00-40.00)
== END | disposition home or self-care (01) ==
LOC: LABWHC1 11:46
PROVIDERS: ATTEND Nurse Practitioner Adult Health
DX: E78.2 Mixed hyperlipidemia (principal); I10 Essential (primary) hypertension
CPT/HCPCS: 36415; 80053; 80061

== ENCOUNTER → 2020-06-24 | Outpatient (CLI) | payer MEDICARE, BC ==
[2020-06-25 01:28] LABS: African American GFR (CKD) 40.5 (60.0-200.0); Albumin 4.7 g/dL (3.80-4.90); Albumin/Globulin Ratio 1.96 (1.60-3.17); Anion Gap 8.9 mmol/L (4.00-12.00); BUN/Creat Ratio 22.86 Ratio (12.00-20.00); Calcium 9.8 mg/dL (8.7-10.3); Carbon Dioxide 29.1 mmol/L (21.6-31.8); Chol/HDL Ratio 3.48; Globulin 2.4 g/dL (1.6-3.3); Non-African American GFR(CKD) 34.9 (60.0-200.0); Potassium 4.7 mmol/L (3.5-5.5); Total Bilirubin 1.7 mg/dL (0.3-1.2); Total Protein 7.1 g/dL (6.2-8.2)
== END | disposition home or self-care (01) ==
LOC: LABWHC1 12:19
PROVIDERS: ATTEND Internal Medicine Interventional Cardiology
DX: E78.2 Mixed hyperlipidemia (principal)
CPT/HCPCS: 36415; 80053; 80061

== ENCOUNTER → 2020-08-15 | Outpatient (CLI) | payer MEDICARE, BC ==
[2020-08-15 13:23] LABS: Basophils # (A) 0.1 k/uL (0-0.2); Basophils % (A) 1 %; Eosinophils # (A) 0.2 k/uL (0-0.7); Eosinophils % (A) 3 %; HCT 34.3 % (34.0-46.0); HGB 10.7 gm/dL (11.4-16.0); Lymphocytes # (A) 0.7 k/uL (1.0-4.8); Lymphocytes % (A) 10 %; MCH 29.1 pg (25.0-35.0); MCHC 31.4 g/dL (31.0-37.0); MCV 92.6 fL (80.0-100.0); Monocytes # (A) 0.4 k/uL (0-1.0); Monocytes % (A) 5 %; Neutrophils % (A) 80 %; Platelet Count 227 k/uL (150-450); RDW 15.2 % (11.5-15.5); WBC 7.4 k/uL (3.8-10.6)
[2020-08-16 00:25] LABS: % Iron Saturation 8.93 (12.00-45.00); African American GFR (CKD) 48.7 (60.0-200.0); Albumin 4.3 g/dL (3.80-4.90); Albumin/Globulin Ratio 1.79 (1.60-3.17); Anion Gap 10.1 mmol/L (4.00-12.00); BUN/Creat Ratio 17.5 Ratio (12.00-20.00); Carbon Dioxide 24.9 mmol/L (21.6-31.8); Chol/HDL Ratio 3.14; Globulin 2.4 g/dL (1.6-3.3); Magnesium 2.1 mg/dL (1.5-2.4); Non-African American GFR(CKD) 42.1 (60.0-200.0); Potassium 4.7 mmol/L (3.5-5.5); Total Bilirubin 1.5 mg/dL (0.2-1.2); Total Protein 6.7 g/dL (6.2-8.2); Uric Acid 7.6 mg/dL (2.9-7.7)
[2020-08-16 00:46] LABS: Folate, Serum 9.9 ng/mL
== END | disposition home or self-care (01) ==
LOC: LABWHC1 11:43
PROVIDERS: ATTEND Family Medicine
DX: N18.30 Chronic kidney disease, stage 3 unspecified (principal); D63.1 Anemia in chronic kidney disease; E78.5 Hyperlipidemia, unspecified
CPT/HCPCS: 36415; 80053; 80061; 82550; 82607; 82746; 83540; 83550; 83735; 83970; 84550; 85025

== ENCOUNTER → 2020-08-15 | Outpatient (CLI) | payer MEDICARE, BC ==
--- NOTE | 2020-08-15 23:19 | CT ---
EXAMINATION TYPE: CT abdomen pelvis wo con DATE OF EXAM: 08/15/2020 COMPARISON: 02/19/2020 INDICATION: Diarrhea, hx. breast and colon cancer DLP: 448.1 mGycm, Automated exposure control for dose reduction was used. CONTRAST: 0 mL of Isovue 300. Study performed without Oral Contrast TECHNIQUE: Axial images were obtained from above the diaphragm to the pubic rami in the axial plane a t 5 mm thick sections. Reconstructed images are reviewed on the computer in the coronal plane. FINDINGS: Limited CT sections are obtained the lung bases. The lung bases are clear. Her size is enlarged. Co ronary artery calcification is present. CT ABDOMEN: Anterior abdominal wall hernia containing mesenteric fat is anterior to the liver. Series 3 image 39. There is thickening of the left rectus abdominis muscle currently measuring 2.6 x 4.2 cm . Previous measurement 2.7 x 3.5 cm. Liver: Several peripheral hypodensities are present within the liver suspicious for metastatic diseas e. This would include the inferior right lobe liver measuring 2.9 cm, previous measurement 4.3 cm josy ng the superior right lobe liver currently measuring 3.5 cm previously measuring 2.9 cm. And anterior right lobe liver lesion measures 2.0 cm, previous measurement 1.5 cm. Within the left lobe liver the re is a 1.8 cm lesion which previously measured 1.7 cm. Spleen: Normal Pancreas: Normal Adrenal glands: The adrenal glands are normal. Gallbladder: Identified Kidneys: No masses are evident. No hydronephrosis is present. There is an exophytic cyst on the inf erior lateral pole of the left kidney measuring 2.7 cm in 9 Hounsfield units present previously. Ther e is a 0.4 cm calcification inferior pole right kidney. . Aorta: Vascular calcification is within the aorta. Inferior vena cava: Normal. CT PELVIS: Loops of bowel within the abdomen and pelvis are normal. There are loops of bowel which are incom pletely distended or lack oral contrast limiting their evaluation. Appendix: Normal as visualized. Urinary bladder: Normal. Genitourinary structures: Uterus and ovaries are not identified. Osseous structures: No suspicious lytic or sclerotic lesions. Degenerative changes are within the pos terior lumbar spine. IMPRESSIONS: 1. Nonobstructing right renal calcification. 2. Renal cysts. 3. Suspicious hypodensities within the liver, some of which are enlarging in size over the interval s uspicious for metastatic disease. 4. Enlarging left anterior abdominal wall mass. 5 Anterior abdominal wall hernia
== END | disposition home or self-care (01) ==
LOC: RADCTMAIN 11:28
PROVIDERS: ATTEND Internal Medicine Hematology & Oncology
DX: N28.1 Cyst of kidney, acquired (principal); K43.9 Ventral hernia without obstruction or gangrene; N28.89 Other specified disorders of kidney and ureter; C18.2 Malignant neoplasm of ascending colon; C50.512 Malignant neoplasm of lower-outer quadrant of left female breast
CPT/HCPCS: 74176

== ENCOUNTER → 2020-09-25 | Outpatient (CLI) | payer MEDICARE, BC ==
--- NOTE | 2020-09-25 13:48 | MM ---
Reason for exam: additional evaluation requested from prior study. Last mammogram was performed 1 year and 2 months ago. History: Patient is postmenopausal and has history of breast cancer at age 79. Family history of premenopausal breast cancer in daughter at age 40. Malignant US biopsy breast VAD LT of the left breast, July 25, 2019. Benign right US cyst aspiration of the right breast, March 15, 2008. Took hormonal contraceptives for 10 years. Took estrogen for 34 years beginning at age 36. Physical Findings: Nurse did not find any significant physical abnormalities on exam. MG Diagnostic Mammo w CAD SHARRI Bilateral CC and MLO view(s) were taken. Prior study comparison: July 25, 2019, left breast MG diagnostic mammo LT wo CAD. June 19, 2019, bilateral MG 3d diag mammo w/cad SHARRI. There are scattered fibroglandular densities. There is chronic nodularity in the right breast. Generator device partially obscured on the left MLO view. Benign secretory and vascular calcifications on both sides. There has been interval surgery. 6 month follow up to assess any evolving post therapy changes. These results were verbally communicated with the patient and result sheet given to the patient on 09/25/20. ASSESSMENT: Probably benign, BI-RAD 3 RECOMMENDATION: Follow-up diagnostic mammogram of the left breast in 6 months.
== END | disposition home or self-care (01) ==
LOC: RADMAMWWP 12:32
PROVIDERS: ATTEND Family Medicine
DX: Z08 Encounter for follow-up examination after completed treatment for malignant neoplasm (principal); Z85.3 Personal history of malignant neoplasm of breast
CPT/HCPCS: 77066

== ENCOUNTER → 2020-10-05 | Outpatient (CLI) | payer MEDICARE, BC ==
--- NOTE | 2020-10-08 09:44 | PE ---
EXAMINATION TYPE: PET CT fusion skull to thigh DATE OF EXAM: 10/05/2020 COMPARISON: PET CT June 17, [address] abdomen and pelvis August 15, 2020 and older studies. HISTORY: Colorectal cancer progress study. Originally diagnosed 3 years ago with history of surgery along with radiation and chemotherapy treatment. TECHNIQUE: Following the intravenous administration of 13.82 mCi of F-18 FDG, whole body images are performed from the skull base to the midthigh. Images are reviewed on the computer in the coronal, a xial, and sagittal planes. Reconstructed rotating images are created on independent workstation and reviewed on the computer. A noncontrast CT is performed in conjunction with the PET scan. SCAN: Subsequent Scan FINDINGS: SKULL BASE AND NECK: No new areas of suspicious hypermetabolic uptake. CHEST, MEDIASTINUM, AND HILAR REGION: No new areas of suspicious hypermetabolic uptake. ABDOMEN AND PELVIS: Interval resolution of abnormal hypermetabolic uptake anterior left mid abdominal wall. Focal ovoid prominence remains present. Max SUV less than 2.5 on the current study. Presumed p ostsurgical change. No new areas of abnormal hypermetabolic uptake with particular attention to the l iver at area of concern on recent CT. Low dense lesions are actually decreasing in size from 2018, so me are more dense from original study. Mild nonspecific bowel uptake noted. OSSEOUS STRUCTURES: No new areas of abnormal hypermetabolic uptake. OTHER CT: Generalized age-related atrophy and chronic small vessel ischemic change in the visualized brain parenchyma redemonstrated. Stable moderate calcified plaque bilateral carotid bulb level. Redemonstration of marked cardiomegaly with severe biatrial dilatation and moderate left ventricular dilatation. Multi lead pacemaker redemonstrated. Numerous thin-walled cysts throughout the liver are present. Cholecystectomy clips are redemonstrated . Some cortical thinning in both kidneys is seen. Surgical sutures from right-sided partial colectomy with bowel anastomosis are redemonstrated. Uterus is surgically absent or markedly atrophic. Scatter ed pelvic phleboliths. Moderate to severe calcified plaque of the aorta extends into smaller branch vessels. Multilevel spur ring in the spine. Facet arthropathy lower lumbar levels with multilevel spurring and disc space narr owing. Scoliotic curvature in the lumbar spine. IMPRESSION: No new areas of abnormal hypermetabolic uptake to suggest neoplastic recurrence with part icular attention to liver at area of recent CT concern.
== END | disposition home or self-care (01) ==
LOC: RADPETMAIN 08:11
PROVIDERS: ATTEND Internal Medicine Hematology & Oncology
DX: C18.2 Malignant neoplasm of ascending colon (principal); Z92.21 Personal history of antineoplastic chemotherapy
CPT/HCPCS: 78815; A9552

== ENCOUNTER 2020-11-28 09:00 | Day surgery (SDC) | payer MEDICARE, BC ==
[2020-11-22 09:38] VITALS: BMI 32.5
[2020-11-28 08:25] VITALS: RESP 16; TEMP 96.9
[2020-11-28 08:29] LABS: Basophils # (A) 0.1 k/uL (0-0.2); Basophils % (A) 1 %; Eosinophils # (A) 0.4 k/uL (0-0.7); Eosinophils % (A) 5 %; HCT 40.5 % (34.0-46.0); HGB 13.2 gm/dL (11.4-16.0); Lymphocytes # (A) 0.8 k/uL (1.0-4.8); Lymphocytes % (A) 10 %; MCH 29.2 pg (25.0-35.0); MCHC 32.5 g/dL (31.0-37.0); MCV 89.9 fL (80.0-100.0); Mean Platelet Volume 8.1; Monocytes # (A) 0.4 k/uL (0-1.0); Monocytes % (A) 4 %; Neutrophils # (A) 6.3 k/uL (1.3-7.7); Neutrophils % (A) 78 %; Platelet Count 239 k/uL (150-450); RDW 15.5 % (11.5-15.5); WBC 8.1 k/uL (3.8-10.6)
[2020-11-28 08:39] LABS: INR 1.5 (<1.2); Prothrombin Time 15.4 sec (9.0-12.0)
[2020-11-28 08:50] LABS: Calcium 9.4 mg/dL (8.4-10.2)
[2020-11-28 08:54] LABS: Potassium 4.6 mmol/L (3.5-5.1)
[~2020-11-28 09:00] MED LIST changes: -HEPARIN SODIUM,PORCINE 5,000 UNIT/ML 1 ML VIAL SQ ONE; +LIDOCAINE 1% INJ 10MG/ML (20 ML MDV) ONE; -Pre Op ABX Message 1 EACH MISC MISCELLANE ONE; +SODIUM CHLORIDE 0.9% 1,000 ML IV SCH; +ceFAZolin 1 GM in SODIUM CHLORIDE 0.9% 250 ML IRRIGATION PRN
[2020-11-28] MEDS ORDERED: MIDAZOLAM 2 MG/2 ML VIAL IV ONE (09:13)
[2020-11-28] MEDS ORDERED: fentaNYL (PF) 50 MCG/ML 2 ML AMP ONE (09:13)
[2020-11-28] MEDS ORDERED: fentaNYL (PF) 50 MCG/ML 2 ML AMP IV ONE (09:13)
[2020-11-28] MEDS ORDERED: LIDOCAINE 1% INJ 10MG/ML (20 ML MDV) SQ ONE (09:18)
[2020-11-28] MEDS ORDERED: atenoloL 25 MG TAB PO STA (10:28)
[2020-11-28 11:02] VITALS: PULSE 60
[2020-11-28 11:05] VITALS: BP 145/70
--- NOTE | 2020-12-05 13:57 | P.PCN ---
Date of Procedure: 11/28/20 Preoperative Diagnosis: Battery depletion Postoperative Diagnosis: The same Procedure(s) Performed: Battery replacement Description of Procedure: HISTORY: This is a 80-year-old female with history of permanent pacemaker implantation was noted to have evidence of battery depletion on recent evaluation. She is advised to have replacement electively. CONSENT: I have discussed the risks and benefits as related to the above menti oned procedure and both sedation/analgesia as well as necessary blood product administration. The patient has indicated understanding and acceptance of the risks of the procedure discussed. PROCEDURE: Patient was brought to the lab in a fasting state. Patient was given IV Versed and fentanyl for sedation. The skin over the existing pulse generator was infiltrated with lidocaine. An incision was made in the skin and was deepened until the pectoral fascia was exposed. Hemostasis was obtained. The existing pulse generator was pulled out of the pocket. The lead was disconnected and were checked for thresholds. Conscious Sedation: Versed 1mg Fentanyl 25 g Duration 16]minutes THRESHOLDS: VENTRICULAR: The minimal patient threshold was 1 V at pulse width of 0.5. The impedance is 6 and 10. The R-wave is 10 THE LEADS: VENTRICULAR: The lead is manufactured by [employer]. Model number is 4285 and the serial number is [id number] THE EXPLANTED DEVICE: This is manufactured by [employer]. Model number is S401 and the serial number is [id number]. THE NEW DEVICE: This is manufactured by [employer]. Model number is [id number] The leads were then connected to a new pulse generator. Pacemaker seems to function normally. The pocket was irrigated with antibiotics. The pocket was closed in the usual fashion. Pectoral fascia was closed with 2-0 Prolene, the subcutaneous tissue was closed with 3-0 Prolene and the skin was closed with 4-0 Prolene. Patient tolerated the procedure well . Patient will be monitored on the telemetry unit for 2-3 hours. If stable patient be discharged home later today. PLAN: Patient will be monitored on telemetry unit for 2 hours. If stable patient be discharged home FALLOW UP: . Follow-up in the office in one week. Patient will continue home medication list prophylactic antibiotics. Patient is given usual post generator change instructions.
== END 2020-11-28 12:30 | disposition home or self-care (01) ==
LOC: CATHEP 09:00
PROVIDERS: ATTEND Internal Medicine Cardiovascular Disease
DX: Z45.010 Encounter for checking and testing of cardiac pacemaker pulse generator [battery] (principal); I48.20 Chronic atrial fibrillation, unspecified; I12.9 Hypertensive chronic kidney disease with stage 1 through stage 4 chronic kidney disease, or unspecified chronic kidney disease; E11.22 Type 2 diabetes mellitus with diabetic chronic kidney disease; N18.9 Chronic kidney disease, unspecified; E78.2 Mixed hyperlipidemia; E78.5 Hyperlipidemia, unspecified; E66.9 Obesity, unspecified; Z90.49 Acquired absence of other specified parts of digestive tract; Z85.038 Personal history of other malignant neoplasm of large intestine; Z87.891 Personal history of nicotine dependence; Z79.01 Long term (current) use of anticoagulants; Z79.899 Other long term (current) drug therapy; Z91.041 Radiographic dye allergy status; Z95.2 Presence of prosthetic heart valve; Z68.28 Body mass index [BMI] 28.0-28.9, adult
CPT/HCPCS: 33227; 80048; 85025; 85610; C1786; J2250; J0690; J2001; J3010

== ENCOUNTER → 2021-04-04 | Outpatient (CLI) | payer MEDICARE, BC ==
--- NOTE | 2021-04-07 11:22 | MM ---
Reason for exam: additional evaluation requested from prior study. Last mammogram was performed 6 months ago. History: Patient is postmenopausal, has history of breast cancer at age 79, and history of other cancer. Family history of premenopausal breast cancer in daughter at age 40. Malignant US biopsy breast VAD LT of the left breast, July 25, 2019. Benign right US cyst aspiration of the right breast, March 15, 2008. Took hormonal contraceptives for 10 years. Took estrogen for 34 years beginning at age 36. Taking antineoplastic beginning at age 79. Physical Findings: Nurse did not find any significant physical abnormalities on exam. MG 3D Diag Mammo W/Cad LT CC, MLO, and XCCL view(s) were taken of the left breast. Prior study comparison: September 25, 2020, bilateral MG diagnostic mammo w CAD SHARRI. July 25, 2019, left breast MG diagnostic mammo LT wo CAD. The breast tissue is heterogeneously dense. This may lower the sensitivity of mammography. Benign vascular calcifications. Left lumpectomy change. These results were verbally communicated with the patient and result sheet given to the patient on 04/04/21. ASSESSMENT: Probably benign, BI-RAD 3 RECOMMENDATION: Follow-up diagnostic mammogram of both breasts in 6 months. Back on schedule.
== END | disposition home or self-care (01) ==
LOC: RADMAMWWP 10:34
PROVIDERS: ATTEND Family Medicine
DX: R92.1 Mammographic calcification found on diagnostic imaging of breast (principal); R92.2 Inconclusive mammogram; Z80.3 Family history of malignant neoplasm of breast; Z85.3 Personal history of malignant neoplasm of breast; Z78.0 Asymptomatic menopausal state
CPT/HCPCS: 77065; G0279; 77061

== ENCOUNTER → 2021-05-16 | Outpatient (CLI) | payer MEDICARE, BC ==
--- NOTE | 2021-05-19 10:41 | PE ---
EXAMINATION TYPE: PET CT fusion skull to thigh DATE OF EXAM: 05/16/2021 COMPARISON: Prior PET/CT October 05, 2020 and older studies. HISTORY: Colon cancer progress study. Originally diagnosed 3+ years ago with history of surgery josy ng with radiation and chemotherapy treatment. Completed chemotherapy April 2021. History of left-sided breast cancer. TECHNIQUE: Following the intravenous administration of 10.63 mCi of F-18 FDG, whole body images are performed from the skull base to the midthigh. Images are reviewed on the computer in the coronal, a xial, and sagittal planes. Reconstructed rotating images are created on independent workstation and reviewed on the computer. A localization and attenuation correction CT is performed in conjunction with the PET scan. Blood glucose level equals 123 SCAN: Subsequent Scan FINDINGS: SKULL BASE AND NECK: No new areas of suspicious hypermetabolic uptake. CHEST, MEDIASTINUM, AND HILAR REGION: No new areas of suspicious hypermetabolic uptake. ABDOMEN AND PELVIS: Focal ovoid prominence remains present axial image 144. Max SUV remains less than 2.5 on the current study. Presumed postsurgical change. No new areas of abnormal hypermetabolic upta ke. Low dense lesions are stable or decreasing in size, some are more dense from original study. No abnormal hypermetabolic uptake. Mild nonspecific bowel uptake noted. Normal excretion. OSSEOUS STRUCTURES: No new areas of abnormal hypermetabolic uptake. OTHER CT: Generalized age-related atrophy and chronic small vessel ischemic change in the visualized brain parenchyma redemonstrated. Stable moderate calcified plaque bilateral carotid bulb level. Redemonstration of marked cardiomegaly with severe biatrial dilatation and moderate left ventricular dilatation. Multi lead pacemaker redemonstrated. Numerous thin-walled cysts throughout the liver are present. Cholecystectomy clips are redemonstrated . Some cortical thinning in both kidneys is seen. Surgical sutures from right-sided partial colectomy with bowel anastomosis are redemonstrated. Uterus is surgically absent or markedly atrophic. Scatter ed pelvic phleboliths. Occasional colonic diverticula. Moderate to severe calcified plaque of the aorta extends into smaller branch vessels. Multilevel spur ring in the spine. Facet arthropathy lower lumbar levels with multilevel spurring and disc space narr owing. Scoliotic curvature in the spine. IMPRESSION: No new areas of abnormal hypermetabolic uptake to suggest active neoplastic recurrence.
== END | disposition home or self-care (01) ==
LOC: RADPETMAIN 09:08
PROVIDERS: ATTEND Internal Medicine Hematology & Oncology
DX: C18.2 Malignant neoplasm of ascending colon (principal); K76.89 Other specified diseases of liver; N28.89 Other specified disorders of kidney and ureter; Z85.3 Personal history of malignant neoplasm of breast
CPT/HCPCS: 78815; A9552

== ENCOUNTER → 2021-06-26 | Outpatient (CLI) | payer MEDICARE, BC ==
[2021-06-27 11:58] LABS: Chol/HDL Ratio 3.51; LDL Cholesterol,Calculated 61.4 mg/dL (0.0-131.0); VLDL Calculation 26.6 mg/dL (5.00-40.00)
== END | disposition home or self-care (01) ==
LOC: LABWHC1 12:48
PROVIDERS: ATTEND Nurse Practitioner Adult Health
DX: E78.2 Mixed hyperlipidemia (principal)
CPT/HCPCS: 36415; 80061; 84450; 84460

== ENCOUNTER → 2021-10-23 | Outpatient (CLI) | payer MEDICARE, BC ==
--- NOTE | 2021-10-23 10:47 | MM ---
Reason for exam: follow-up at short interval from prior study. Last mammogram was performed 7 months ago. History: Patient is postmenopausal, has history of breast cancer at age 79, and history of other cancer. Family history of premenopausal breast cancer in daughter at age 40. Malignant US biopsy breast VAD LT of the left breast, July 25, 2019. Lumpectomy of the left breast, 2019. Chemotherapy, 2019. Radiation therapy of the left breast, 2019. Benign right US cyst aspiration of the right breast, March 15, 2008. Took hormonal contraceptives for 10 years. Took estrogen for 34 years beginning at age 36. Taking antineoplastic beginning at age 79. Physical Findings: Nurse did not find any significant physical abnormalities on exam. MG 3D Diag Mammo W/Cad SHARRI Bilateral CC and MLO view(s) were taken. Prior study comparison: April 04, 2021, left breast MG 3d diag mammo w/cad LT. September 25, 2020, bilateral MG diagnostic mammo w CAD SHARRI. The breast tissue is heterogeneously dense. This may lower the sensitivity of mammography. Stable benign calcifications bilaterally. There is no discrete abnormality. No significant new findings when compared with previous films. These results were verbally communicated with the patient and result sheet given to the patient on 10/23/21. ASSESSMENT: Benign, BI-RAD 2 RECOMMENDATION: Follow-up diagnostic mammogram of both breasts in 1 year.
== END | disposition home or self-care (01) ==
LOC: RADMAMWWP 09:20
PROVIDERS: ATTEND Family Medicine
DX: Z78.0 Asymptomatic menopausal state (principal); Z85.3 Personal history of malignant neoplasm of breast; Z85.89 Personal history of malignant neoplasm of other organs and systems; Z80.3 Family history of malignant neoplasm of breast; Z92.21 Personal history of antineoplastic chemotherapy; Z92.3 Personal history of irradiation
CPT/HCPCS: 77066; G0279; 77062

== ENCOUNTER → 2021-11-28 | Outpatient (CLI) | payer MEDICARE, BC ==
[2021-11-28 23:51] LABS: Chol/HDL Ratio 2.83 Ratio; LDL Cholesterol,Calculated 68.5 mg/dL (0.0-131.0)
[2021-11-29 01:01] LABS: ALT 31 U/L (8-44); AST 25 U/L (13-35); African American GFR (CKD) 53.8 (60.0-200.0); Albumin 4.3 g/dL (3.8-4.9); Albumin/Globulin Ratio 1.95 (1.60-3.17); Alkaline Phosphatase 68 U/L (41-126); BUN/Creat Ratio 23.18 Ratio (12.00-20.00); Blood Urea Nitrogen 25.5 mg/dL (9.0-27.0); Calcium 8.9 mg/dL (8.7-10.3); Carbon Dioxide 32.3 mmol/L (20.0-27.5); Chloride 95 mmol/L (96-109); Globulin 2.2 g/dL (1.6-3.3); Glucose 96 mg/dL (70-110); Non-African American GFR(CKD) 46.4 (60.0-200.0); Potassium 4.7 mmol/L (3.5-5.5); Sodium 136 mmol/L (135-145); Total Protein 6.5 g/dL (6.2-8.2)
== END | disposition home or self-care (01) ==
LOC: LABWHC1 15:02
PROVIDERS: ATTEND Internal Medicine Interventional Cardiology
DX: E78.2 Mixed hyperlipidemia (principal)
CPT/HCPCS: 36415; 80053; 80061

== ENCOUNTER 2021-12-01 10:26 | Emergency (ER) | payer MEDICARE, BC ==
[2021-12-01 10:54] VITALS: BP 137/75; PULSE 75; RESP 18; TEMP 99.2
[2021-12-01] MEDS ORDERED: BAMLANIVIMAB (EUA) 700 MG, ETESEVIMAB (EUA) 1,400 MG in SODIUM CHLORIDE 0.9% 100 ML IVPB ONE (13:00)
[2021-12-01] MEDS ORDERED: SODIUM CHLORIDE 0.9% 50 ML IVPB ONE (13:00)
--- NOTE | 2021-12-01 13:03 | XR ---
EXAMINATION TYPE: XR chest 1V DATE OF EXAM: 12/01/2021 COMPARISON: 01/14/2019 INDICATION: Cough history of CHF TECHNIQUE: Single frontal view of the chest is obtained. FINDINGS: The heart size is enlarged. The pulmonary vasculature is normal. Left perihilar infiltrate is present. Some mild patchy infiltrate may be in the right suprahilar mary on. Pacemaker overlies left chest. Sternotomy wires are in the midline. IMPRESSION: 1. Left perihilar infiltrate with a small right suprahilar infiltrate. Correlate for bronchitis or vi ral pneumonia. Follow-up recommended
--- NOTE | 2021-12-01 13:11 | ED ---
General Adult HPI - General Chief complaint: Upper Respiratory Infection Stated complaint: congestion, SOB Time Seen by Provider: 12/01/21 12:16 Source: patient Mode of arrival: ambulatory Limitations: no limitations - History of Present Illness Initial comments: This 81-year-old female with a past medical history of heart failure, diabetes, GERD, hypertension presents to the emergency department with cough and nasal congestion that began 2 days ago. Patient states she has also had a couple episodes of diarrhea, vomiting mucus production with cough, and generalized abdominal discomfort. She states she has been eating and drinking fluids as usual. She states she did receive 2 vaccines for COVID-19 but has not received her booster. Patient states she would like the antibody infusion. Patient denies any vomiting, fever, shortness of breath, chest pain, hemoptysis, headache, change in vision, blood in diarrhea. - Related Data Home Medications Medication Instructions Recorded Confirmed Simvastatin [Zocor] 40 mg PO HS 03/18/17 12/01/21 Ferrous Sulfate [Iron (65 MG 325 mg PO BID 04/25/18 12/01/21 Elemental)] Furosemide [Lasix] 40 mg PO BID 06/03/18 12/01/21 Warfarin [Coumadin] 2.5 mg PO [id number] 06/03/18 12/01/21 allopurinoL [Zyloprim] 100 mg PO DAILY 01/14/19 12/01/21 calcitrioL [Rocaltrol] 0.25 mcg PO TH 01/14/19 12/01/21 Spironolactone [Aldactone] 50 mg PO DAILY 01/24/19 12/01/21 Cholecalciferol [Vitamin D3 (25 25 mcg PO DAILY 12/01/21 12/01/21 Mcg = 1000 Iu)] Losartan Potassium [Cozaar] 25 mg PO BID 12/01/21 12/01/21 Warfarin [Coumadin] 1.25 mg PO TH 12/01/21 12/01/21 Previous Rx's Medication Instructions Recorded hydrALAZINE HCL [Apresoline] 25 mg PO BID #60 tab 06/16/18 Azithromycin [Zithromax Tri-Pepe (3 500 mg PO DAILY 3 Days #3 tab 12/01/21 tabs)] Dexamethasone [Decadron] 6 mg PO DAILY 7 Days #7 tablet 12/01/21 Allergies Allergy/AdvReac Type Severity Reaction Status Date / Time Iodinated Contrast Media Allergy Anaphylaxis Verified 12/01/21 14:32 [Iodinated Contrast Media - IV Dye] Review of Systems ROS Statement: Those systems with pertinent positive or pertinent negative responses have been documented in the HPI. ROS Other: All systems not noted in ROS Statement are negative. Past Medical History Past Medical History: Cancer, Heart Failure, Diabetes Mellitus, GERD/Reflux, Hypertension Additional Past Medical History / Comment(s): See Dr Salomon's H&P,Neuropathy bilateral feet. Rheumatic fever 30's. HX OF GOUT, Descending colon CA with resection. History of Any Multi-Drug Resistant Organisms: None Reported Past Surgical History: Appendectomy, Bowel Resection, Cardiac Valve Replacement, Cholecystectomy, Hysterectomy, Pacemaker Additional Past Surgical History / Comment(s): 1994 mitral and aortic mechanical valves placed. Pacemakers-has had 2 or 3. Colonoscopy. Debridements bilateral great toe diabetic ulcers. Bilateral cataract removals with lens implants. Past Anesthesia/Blood Transfusion Reactions: No Reported Reaction Additional Past Anesthesia/Blood Transfusion Reaction / Comment(s): Pt has received blood in past without reaction. Type of Cardiac Device: Permanent Pacemaker Device Placement Date:: Pt cannot recall date of last pacer insertion but battery changed 2011 Past Psychological History: No Psychological Hx Reported Smoking Status: Never smoker Past Alcohol Use History: None Reported Past Drug Use History: None Reported - Past Family History Brother(s) Additional Family Medical History / Comment(s): patient states brother had " heart problems" Father History Unknown: Yes Family Medical History: No Reported History Additional Family Medical History / Comment(s): Father committed suicide in his 50s. Mother History Unknown: Yes Family Medical History: No Reported History Additional Family Medical History / Comment(s): Mother was healthy and lived to be 92 yrs old. Daughter(s) Family Medical History: Cancer General Exam - General Exam Comments Initial Comments: Vital signs stable Limitations: no limitations General appearance: alert, in no apparent distress Head exam: Present: atraumatic, normocephalic Eye exam: Present: normal appearance, EOMI ENT exam: Present: normal exam, mucous membranes moist Neck exam: Present: normal inspection, full ROM. Absent: tenderness Respiratory exam: Present: normal lung sounds bilaterally. Absent: respiratory distress, wheezes, rales, rhonchi, stridor Cardiovascular Exam: Present: regular rate, normal rhythm, normal heart sounds. Absent: systolic murmur, diastolic murmur, rubs, gallop, clicks GI/Abdominal exam: Present: soft, normal bowel sounds. Absent: distended, tenderness, guarding, rebound, rigid Extremities exam: Present: full ROM Back exam: Present: full ROM. Absent: tenderness, CVA tenderness (R), CVA tenderness (L) Neurological exam: Present: alert, oriented X3, CN II-XII intact Psychiatric exam: Present: normal affect, normal mood Skin exam: Present: warm, dry, intact, normal color. Absent: rash Course Vital Signs 12/01/21 10:50 Temperature 99.2 F Pulse Rate 75 Respiratory 18 Rate Blood Pressure 137/75 O2 Sat by Pulse 95 Oximetry Medical Decision Making - Medical Decision Making This 81-year-old who presents to the emergency department with abdominal discomfort, cough, runny nose and nasal congestion x 2 days. She tested positive for COVID-19 today. Chest x-ray impression: Left perihilar infiltrate with a small right subhilar infiltrate. Correlate for bronchitis or viral pneumonia. Follow-up recommended. Patient given a dose of Decadron followed by 7 days worth at home. Patient prescribed azithromycin. Patient received COVID- 19 antibody infusion without any complications. Patient to be sent home with strict return precautions. Return precautions discussed. Discussed conservative treatment with patient. Patient advised to get pulse oximeter on [facility] and to return to emergency department if oxygen falls below 90%. Patient verbally agreed to plan. Patient sent home in stable condition. Case discussed with Dr. Montez. - Lab Data Lab Results 12/01/21 Range/Units 10:55 Coronavirus (PCR) Detected A (Not Detectd) Disposition Clinical Impression: COVID-19 Disposition: HOME SELF-CARE Condition: Stable Instructions (If sedation given, give patient instructions): Coronavirus Disease 2019 (COVID-19) Additional Instructions: Please return to the emergency department with any concerning, new, or worsening symptoms. Please follow-up with primary care provider next 1-2 days. Advised to get pulse oximeter from [facility] and to return to the emergency department if oxygen never falls below 90%. Can take [id number] zinc, vitamin C, vitamin D. Prescriptions: Dexamethasone [Decadron] 6 mg PO DAILY 7 Days #7 tablet Azithromycin [Zithromax Tri-Pepe (3 tabs)] 500 mg PO DAILY 3 Days #3 tab Is patient prescribed a controlled substance at d/c from ED?: No Referrals: Home Garza MD [Primary Care Provider] - 1-2 days Time of Disposition: 14:30
[2021-12-01] MEDS ORDERED: dexAMETHasone 2 MG TAB PO STA (13:29)
== END 2021-12-01 15:38 | disposition home or self-care (01) ==
LOC: EC 10:26
DX: U07.1 COVID-19 (principal); E11.9 Type 2 diabetes mellitus without complications; I11.0 Hypertensive heart disease with heart failure; I50.9 Heart failure, unspecified; Z79.01 Long term (current) use of anticoagulants; Z87.39 Personal history of other diseases of the musculoskeletal system and connective tissue
CPT/HCPCS: 99284; 87635; 71045; J8540; J3490

== ENCOUNTER → 2021-12-12 | Outpatient (CLI) | payer MEDICARE, BC ==
--- NOTE | 2021-12-12 14:35 | PE ---
Nuclear medicine PET/CT HISTORY: Colorectal carcinoma, C 18.2, subsequent Patient received 8 mCi F-18 FDG intravenously in delayed scanning was performed from skull base to th e mid thighs. A localization and attenuation correction CT scan was performed. Correlation to prior nuclear medicine PET/CT 05/16/2021 Chest and neck: No cervical or supraclavicular adenopathy. There is no mediastinal, axillary, or rose marie r adenopathy. The heart is markedly enlarged. Postop changes are noted to the heart, there are bedoya ry artery calcifications. There is no pleural or pericardial effusion. No evident lung mass. Some pos sible atelectatic changes or scarring, interstitial changes are suspected. No suspicious uptake. ABDOMEN: Multiple low-attenuation foci within the liver are present without associated uptake, likely representing cysts, similar to prior exam. There is no retroperitoneal adenopathy or ascites. There is some mild uptake along the abdominal wall to the left of midline, suspect there is prior surgery a t this level, findings are likely inflammatory. Uptake along the bowel is likely physiologic. There i s no pelvic adenopathy or free fluid. Postop changes are noted to the colon. There is masslike focus which is developed in the interval along the abdominal wall musculature as co mpared to prior exam in the right upper quadrant just at the level of the inferior margin of the live r. SUV is 4.9. Small local abdominal wall hernia contains fat at this level. Osseous structures are stable. IMPRESSION: Findings are suspicious in the right upper quadrant along the abdominal wall musculature.
== END | disposition home or self-care (01) ==
LOC: RADPETMAIN 09:24
PROVIDERS: ATTEND Internal Medicine Hematology & Oncology
DX: C18.2 Malignant neoplasm of ascending colon (principal)
CPT/HCPCS: 78815; A9552

== ENCOUNTER → 2021-12-15 | Outpatient (CLI) | payer MEDICARE, BC ==
[2021-12-15 13:42] LABS: Prothrombin Time 61.3 sec (9.0-12.0)
[2021-12-15 13:52] LABS: INR 6.1 (<1.2)
== END | disposition home or self-care (01) ==
LOC: LABWHC1 12:03
PROVIDERS: ATTEND Nurse Practitioner Adult Health
DX: I48.19 Other persistent atrial fibrillation (principal)
CPT/HCPCS: 36415; 85610

== ENCOUNTER 2022-02-12 10:51 | Emergency (ER) | payer MEDICARE, BC ==
[2022-02-12] MEDS ORDERED: SODIUM CHLORIDE 0.9% 500 ML 500 ML IV STA (11:51)
[2022-02-12 12:15] VITALS: RESP 18
[2022-02-12 12:16] LABS: Basophils # (A) 0.1 k/uL (0-0.2); Basophils % (A) 1 %; Eosinophils # (A) 0.2 k/uL (0-0.7); Eosinophils % (A) 3 %; HCT 37.6 % (34.0-46.0); HGB 12.5 gm/dL (11.4-16.0); Lymphocytes # (A) 0.7 k/uL (1.0-4.8); Lymphocytes % (A) 10 %; MCH 29.9 pg (25.0-35.0); MCHC 33.3 g/dL (31.0-37.0); MCV 89.6 fL (80.0-100.0); Mean Platelet Volume 7.5; Monocytes # (A) 0.3 k/uL (0-1.0); Monocytes % (A) 4 %; Neutrophils # (A) 5.3 k/uL (1.3-7.7); Neutrophils % (A) 80 %; Platelet Count 216 k/uL (150-450); RDW 15.8 % (11.5-15.5); WBC 6.6 k/uL (3.8-10.6)
[2022-02-12 12:25] LABS: Albumin 4.9 g/dL (3.5-5.0); Calcium 9.3 mg/dL (8.4-10.2); Total Bilirubin 2.1 mg/dL (0.2-1.3); Total Protein 7.9 g/dL (6.3-8.2)
[2022-02-12 12:28] LABS: Potassium 4.5 mmol/L (3.5-5.1)
[2022-02-12 12:53] LABS: Appearance,Urine Cloudy (Clear); Bilirubin,Urine Negative (Negative); Blood,Urine Trace (Negative); Color,Urine Yellow; Glucose,Urine (UA) Negative (Negative); Ketones,Urine Negative (Negative); Leukocyte Esterase,Urine Moderate (Negative); Mucus,Urine Rare /hpf; Nitrite,Urine Negative (Negative); Protein,Urine Trace (Negative); RBC,Urine 2 /hpf (0-5); Specific Gravity,Urine 1.015 (1.001-1.035); Squamous Epithelial Cell,Urine 3 /hpf (0-4); Urobilinogen,Urine <2.0 mg/dL (<2.0); WBC,Urine 6 /hpf (0-5)
--- NOTE | 2022-02-12 13:18 | ED ---
Abdominal Pain HPI - General Chief Complaint: Abdominal Pain Stated Complaint: Side abd pain Time Seen by Provider: 02/12/22 11:21 Source: patient, family, RN notes reviewed Mode of arrival: ambulatory Limitations: no limitations - History of Present Illness Initial Comments: This 81-year-old female presents emergency from chief complaint of abdominal p ain. Patient states that she's been having worsening pain and discomfort this primarily on her right side over the last several months. Patient states her PCP there was away she was sleeping. She did follow-up with her oncologist who recommended her come emergency from for CT. Patient states that she has a history of breast cancer, colon cancer she has had bowel resection she has been in remission for over one year. She states she's been having normal bowel movements denies any dysuria hematuria no fevers or chills no chest pain no other associated complaints. - Related Data Home Medications Medication Instructions Recorded Confirmed Simvastatin [Zocor] 40 mg PO HS 03/18/17 02/12/22 Furosemide [Lasix] 40 mg PO BID 06/03/18 02/12/22 allopurinoL [Zyloprim] 100 mg PO DAILY 01/14/19 02/12/22 calcitrioL [Rocaltrol] 0.25 mcg PO TH 01/14/19 02/12/22 Spironolactone [Aldactone] 25 mg PO BID 01/24/19 02/12/22 Warfarin [Coumadin] 2.5 mg PO HS 12/01/21 02/12/22 atenoloL [Tenormin] 25 mg PO BID 02/12/22 02/12/22 Previous Rx's Medication Instructions Recorded hydrALAZINE HCL [Apresoline] 25 mg PO BID #60 tab 06/16/18 Allergies Allergy/AdvReac Type Severity Reaction Status Date / Time Iodinated Contrast Media Allergy Anaphylaxis Verified 02/12/22 12:28 [Iodinated Contrast Media - IV Dye] Review of Systems ROS Statement: Those systems with pertinent positive or pertinent negative responses have been documented in the HPI. ROS Other: All systems not noted in ROS Statement are negative. Past Medical History Past Medical History: Cancer, Heart Failure, Diabetes Mellitus, GERD/Reflux, Hypertension Additional Past Medical History / Comment(s): See Dr Salomon's H&P,Neuropathy bilateral feet. Rheumatic fever 30's. HX OF GOUT, Descending colon CA with resection. History of Any Multi-Drug Resistant Organisms: None Reported Past Surgical History: Appendectomy, Bowel Resection, Cardiac Valve Replacement, Cholecystectomy, Hysterectomy, Pacemaker Additional Past Surgical History / Comment(s): 1994 mitral and aortic mechanical valves placed. Pacemakers-has had 2 or 3. Colonoscopy. Debridements bilateral great toe diabetic ulcers. Bilateral cataract removals with lens implants. Past Anesthesia/Blood Transfusion Reactions: No Reported Reaction Additional Past Anesthesia/Blood Transfusion Reaction / Comment(s): Pt has received blood in past without reaction. Type of Cardiac Device: Permanent Pacemaker Device Placement Date:: Pt cannot recall date of last pacer insertion but battery changed 2011 Past Psychological History: No Psychological Hx Reported Smoking Status: Never smoker Past Alcohol Use History: None Reported Past Drug Use History: None Reported - Past Family History Brother(s) Additional Family Medical History / Comment(s): patient states brother had " heart problems" Father History Unknown: Yes Family Medical History: No Reported History Additional Family Medical History / Comment(s): Father committed suicide in his 50s. Mother History Unknown: Yes Family Medical History: No Reported History Additional Family Medical History / Comment(s): Mother was healthy and lived to be 92 yrs old. Daughter(s) Family Medical History: Cancer General Exam Limitations: no limitations General appearance: alert, in no apparent distress Head exam: Present: atraumatic, normocephalic, normal inspection Eye exam: Present: normal appearance, PERRL, EOMI. Absent: scleral icterus, conjunctival injection, periorbital swelling ENT exam: Present: normal exam, normal oropharynx, mucous membranes moist Neck exam: Present: normal inspection. Absent: tenderness, meningismus, lymphadenopathy Respiratory exam: Present: normal lung sounds bilaterally. Absent: respiratory distress, wheezes, rales, rhonchi, stridor Cardiovascular Exam: Present: regular rate, normal rhythm, normal heart sounds. Absent: systolic murmur, diastolic murmur, rubs, gallop, clicks GI/Abdominal exam: Present: soft, tenderness (Minimal right), normal bowel sounds. Absent: distended, guarding, rebound, rigid Back exam: Absent: CVA tenderness (R), CVA tenderness (L) Neurological exam: Present: alert, oriented X3, CN II-XII intact Course Vital Signs 0302/12/22 02/12/22 11:04 12:15 15:16 Temperature 97.9 F Pulse Rate 81 62 60 Respiratory 16 18 18 Rate Blood Pressure 160/84 127/57 137/69 O2 Sat by Pulse 96 95 98 Oximetry Medical Decision Making - Medical Decision Making This is a 1-year-old female presented for abdominal pain sent in by a oncologist. CT is obtained there is some soft tissue mass within the musculature. Patient's INR is 2.7 hemoglobin is stable. Is unclear what the etiology of this is may be related from prior hematoma. Patient will follow-up with oncology, primary care physician return parameters were discussed. - Lab Data Result diagrams: 02/12/22 Unknown 02/12/22 Unknown Lab Results 02/12/22 02/12/22 02/12/22 Range/Units 12:23 15:15 Unknown WBC 6.6 (3.8-10.6) k/uL RBC 4.20 (3.80-5.40) m/uL Hgb 12.5 (11.4-16.0) gm/dL Hct 37.6 (34.0-46.0) % MCV 89.6 (80.0-100.0) fL MCH 29.9 (25.0-35.0) pg MCHC 33.3 (31.0-37.0) g/dL RDW 15.8 H (11.5-15.5) % Plt Count 216 (150-450) k/uL MPV 7.5 Neutrophils % 80 % Lymphocytes % 10 % Monocytes % 4 % Eosinophils % 3 % Basophils % 1 % Neutrophils # 5.3 (1.3-7.7) k/uL Lymphocytes # 0.7 L (1.0-4.8) k/uL Monocytes # 0.3 (0-1.0) k/uL Eosinophils # 0.2 (0-0.7) k/uL Basophils # 0.1 (0-0.2) k/uL PT 26.4 H (9.0-12.0) sec INR 2.7 H (<1.2) APTT 31.9 H (22.0-30.0) sec Sodium (137-145) mmol/L Potassium (3.5-5.1) mmol/L Chloride (98-107) mmol/L Carbon Dioxide (22-30) mmol/L Anion Gap mmol/L BUN (7-17) mg/dL Creatinine (0.52-1.04) mg/dL Est GFR (CKD-EPI)AfAm (>60 ml/min/1.73 sqM) Est GFR (CKD-EPI)NonAf (>60 ml/min/1.73 sqM) Glucose (74-99) mg/dL Calcium (8.4-10.2) mg/dL Total Bilirubin (0.2-1.3) mg/dL AST (14-36) U/L ALT (4-34) U/L Alkaline Phosphatase (38-126) U/L Total Protein (6.3-8.2) g/dL Albumin (3.5-5.0) g/dL Amylase (30-110) U/L Lipase (23-300) U/L Urine Color Yellow Urine Appearance Cloudy H (Clear) Urine pH 5.0 (5.0-8.0) Ur Specific [place] 1.015 (1.001-1.035) Urine Protein Trace H (Negative) Urine Glucose (UA) Negative (Negative) Urine Ketones Negative (Negative) Urine Blood Trace H (Negative) Urine Nitrite Negative (Negative) Urine Bilirubin Negative (Negative) Urine Urobilinogen <2.0 (<2.0) mg/dL Ur Leukocyte Esterase Moderate H (Negative) Urine RBC 2 (0-5) /hpf Urine WBC 6 H (0-5) /hpf Ur Squamous Epith Cells 3 (0-4) /hpf Urine Mucus Rare H (None) /hpf 02/12/22 Range/Units Unknown WBC (3.8-10.6) k/uL RBC (3.80-5.40) m/uL Hgb (11.4-16.0) gm/dL Hct (34.0-46.0) % MCV (80.0-100.0) fL MCH (25.0-35.0) pg MCHC (31.0-37.0) g/dL RDW (11.5-15.5) % Plt Count (150-450) k/uL MPV Neutrophils % % Lymphocytes % % Monocytes % % Eosinophils % % Basophils % % Neutrophils # (1.3-7.7) k/uL Lymphocytes # (1.0-4.8) k/uL Monocytes # (0-1.0) k/uL Eosinophils # (0-0.7) k/uL Basophils # (0-0.2) k/uL PT (9.0-12.0) sec INR (<1.2) APTT (22.0-30.0) sec Sodium 133 L (137-145) mmol/L Potassium 4.5 (3.5-5.1) mmol/L Chloride 98 (98-107) mmol/L Carbon Dioxide 25 (22-30) mmol/L Anion Gap 10 mmol/L BUN 31 H (7-17) mg/dL Creatinine 1.16 H (0.52-1.04) mg/dL Est GFR (CKD-EPI)AfAm 51 (>60 ml/min/1.73 sqM) Est GFR (CKD-EPI)NonAf 44 (>60 ml/min/1.73 sqM) Glucose 129 H (74-99) mg/dL Calcium 9.3 (8.4-10.2) mg/dL Total Bilirubin 2.1 H (0.2-1.3) mg/dL AST 43 H (14-36) U/L ALT 16 (4-34) U/L Alkaline Phosphatase 67 (38-126) U/L Total Protein 7.9 (6.3-8.2) g/dL Albumin 4.9 (3.5-5.0) g/dL Amylase 49 (30-110) U/L Lipase 171 (23-300) U/L Urine Color Urine Appearance (Clear) Urine pH (5.0-8.0) Ur Specific [place] (1.001-1.035) Urine Protein (Negative) Urine Glucose (UA) (Negative) Urine Ketones (Negative) Urine Blood (Negative) Urine Nitrite (Negative) Urine Bilirubin (Negative) Urine Urobilinogen (<2.0) mg/dL Ur Leukocyte Esterase (Negative) Urine RBC (0-5) /hpf Urine WBC (0-5) /hpf Ur Squamous Epith Cells (0-4) /hpf Urine Mucus (None) /hpf Disposition Clinical Impression: Abdominal wall mass Disposition: HOME SELF-CARE Condition: Stable Instructions (If sedation given, give patient instructions): Abdominal Pain (ED) Additional Instructions: Please return to the Emergency Department if symptoms worsen or any other concerns. Is patient prescribed a controlled substance at d/c from ED?: No Referrals: Home Garza MD [Primary Care Provider] - 1-2 days Zina Shetty MD [STAFF PHYSICIAN] - 1-2 days Time of Disposition: 15:43
--- NOTE | 2022-02-12 13:27 | CT ---
EXAMINATION TYPE: CT abdomen pelvis wo con DATE OF EXAM: 02/12/2022 COMPARISON: PET/CT 12/12/2021 HISTORY: Generalized abdominal pain, History of Breast and Colon cancer. CT DLP: 485.1 mGycm Automated exposure control for dose reduction was used. TECHNIQUE: Helical acquisition of images from the lung bases through the pelvis. FINDINGS: Lack of intravenous contrast could compromise sensitivity. There is a lead present within t he right ventricle. Heart is enlarged. Along the abdominal wall musculature in the right upper quadrant there is a soft tissue mass measurin g approximately 4.2 x 3.8 x 2.6 cm. Similar character appearing lesion is present in the left upper q uadrant measuring approximately 2.4 x 3.5 x 2.4 cm within the abdominal wall musculature, there is so me local mass effect on the liver in the right upper quadrant. Subcutaneous inflammatory changes are suspected left upper quadrant as on prior exam. LUNG BASES: No significant abnormality is appreciated. AORTA: No significant abnormality is appreciated. LIVER/GB: There is some cystic change within the inferior right lobe of the liver similar to prior ex am. Gallbladder is surgically absent. PANCREAS: No significant abnormality is seen. SPLEEN: Low dense focus is noted along the anterior margin of the spleen anteriorly. ADRENALS: No significant abnormality is seen. KIDNEYS: No significant abnormality is seen. REPRODUCTIVE ORGANS: Not seen. URINARY BLADDER: Somewhat contracted, thickening of the bladder wall may be due to lack of distentio n. BOWEL: Some diverticular changes present, postop changes are noted in the right colon. FREE AIR: No Free Air is visible. ASCITES: None visible. PELVIC ADENOPATHY: None visualized. RETROPERITONEAL ADENOPATHY: No Retroperitoneal Adenopathy visible. OSSEOUS STRUCTURES: There is a spinal curvature. Degenerative disc changes are present visualized sp ine, there is associated facet arthropathy in the lower lumbar spine. IMPRESSION: DIFFICULT TO EXCLUDE SEEDING ALONG THE ANTERIOR ABDOMINAL WALL, CORRELATE FOR POSSIBLE LAPAROSCOPIC S URGERY ACCESS LOCATION, HEMATOMA NOT EXCLUDED. Indeterminate low dense lesion along the spleen could possibly represent metastatic focus. Noncontrast exam. Cardiomegaly. Postop changes.
[2022-02-12 15:18] VITALS: PULSE 60
[2022-02-12 15:38] LABS: INR 2.7 (<1.2); Partial Thromboplastin Time 31.9 sec (22.0-30.0); Prothrombin Time 26.4 sec (9.0-12.0)
[2022-02-12 16:02] VITALS: BP 130/62; TEMP 97.6
== END 2022-02-12 16:03 | disposition home or self-care (01) ==
LOC: EC 10:51
DX: R19.00 Intra-abdominal and pelvic swelling, mass and lump, unspecified site (principal); E11.40 Type 2 diabetes mellitus with diabetic neuropathy, unspecified; I11.0 Hypertensive heart disease with heart failure; I50.9 Heart failure, unspecified; K21.9 Gastro-esophageal reflux disease without esophagitis; M10.9 Gout, unspecified; Z79.01 Long term (current) use of anticoagulants; Z79.899 Other long term (current) drug therapy
CPT/HCPCS: 36415; 74176; 80053; 81001; 82150; 83690; 85025; 85610; 85730; 99284

== ENCOUNTER → 2022-03-13 | Outpatient (CLI) | payer MEDICARE, BC ==
--- NOTE | 2022-03-13 17:13 | PE ---
Nuclear medicine PET/CT HISTORY: C 18.2, subsequent Patient received 11.18 mCi F-18 FDG intravenously and delayed scanning was performed from the skull b ase to the mid thighs. A localization and attenuation correction CT scan was performed. Correlation to prior nuclear medicine PET/CT 12/12/2021 Average mediastinal uptake SUV is, average uptake within the liver SUV is. Chest and neck: There is no cervical or supraclavicular adenopathy. No mediastinal, axillary, or rose marie r adenopathy. The heart is enlarged. Mitral annular calcification, calcification along the anterior w all the left atrium and posterior wall, calcification at the aorta root, coronary artery calcificatio ns are again noted. There is a lead present in the right ventricle, generator in the left pectoral re gion. There is no evident lung mass, no pleural or pericardial effusion. Some probable atelectatic changes, scarring noted. No suspicious uptake within the chest. ABDOMEN: In the anterior abdomen muscular uptake is present which is fairly symmetric, somewhat simil ar to prior exam, there is some increased attenuation within the subcutaneous fat which may reflect s ome scarring. Uptake along the bowel is noted, there is postop change in the right hemiabdomen, uptake at the level of the surgical site shows SUV 4.6. There is no evident ascites or liver mass. Liver cysts are again seen. There is no retroperitoneal adenopathy or adrenal mass. Osseous structures show no suspicious uptake or significant interval change. Degenerative disc change and facet arthropathy changes noted. IMPRESSION: Uptake in the surgical site could be physiologic but is indeterminate, and endoscopy may be of benefit.
== END | disposition home or self-care (01) ==
LOC: RADPETMAIN 11:14
PROVIDERS: ATTEND Internal Medicine Hematology & Oncology
DX: C18.2 Malignant neoplasm of ascending colon (principal)
CPT/HCPCS: 78815; A9552

== ENCOUNTER 2022-03-31 06:18 | Day surgery (SDC) | payer MEDICARE, BC ==
[2022-03-27 11:06] VITALS: BMI 26.5
[~2022-03-31 06:18] MED LIST changes: +LACTATED RINGERS 1,000 ML IV SCH; +LIDOCAINE 1% (10MG/ML) FOR IV START INTRADERMA PRN; -LIDOCAINE 1% INJ 10MG/ML (20 ML MDV) ONE; -SODIUM CHLORIDE 0.9% 1,000 ML IV SCH; -ceFAZolin 1 GM in SODIUM CHLORIDE 0.9% 250 ML IRRIGATION PRN
[2022-03-31 07:00] VITALS: TEMP 97.3
[2022-03-31 07:13] LABS: Glucose,Whole Blood 134 mg/dL (75-99)
[2022-03-31] MEDS ORDERED: LIDOCAINE 2% INJ 20 MG/ML (2 ML VIAL) ONE (07:30)
[2022-03-31] MEDS ORDERED: PROPOFOL 10 MG/ML 20 ML VIAL IV ONE (07:30)
--- NOTE | 2022-03-31 07:54 | P.PCN ---
Date of Procedure: 03/31/22 Procedure(s) Performed: BRIEF HISTORY: Patient is a 81-year-old pleasant white female scheduled for an elective colonoscopy as a part of surveillance of colon cancer. 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 She is scheduled for a surveillance colonoscopy today PROCEDURE PERFORMED: Colonoscopy. PREOPERATIVE DIAGNOSIS: History of colon cancer in May 2018 status post right hemicolectomy. IV sedation per Anesthesia. PROCEDURE: After informed consent was obtained, the patient, was brought into the endoscopy unit. IV sedation was administered by Anesthesia under continuous monitoring. Digital rectal examination was normal. Initially the Olympus CF-160 flexible video colonoscope was then inserted in the rectum, gradually advanced into the right colon with anastomosis was visualized and appeared normal. Prep was excellent. Mucosa of the ascending colon transverse colon, descending colon, sigmoid colon, and rectum appeared normal. Retroflexion was performed in the rectum and small internal hemorrhoids were seen. The patient tolerated the procedure well. IMPRESSION: Normal-appearing colon from rectum to right colon with normal anastomosis Small internal hemorrhoids RECOMMENDATIONS: Findings of this examination were discussed with the patient as well as her family. She was advised to have a repeat surveillance colonoscopy in 3 years from now based on her overall medical condition..
[2022-03-31 08:16] VITALS: BP 148/81; PULSE 60; RESP 16
== END 2022-03-31 08:48 | disposition home or self-care (01) ==
LOC: ORWHC2ENDO 06:18
PROVIDERS: ATTEND Internal Medicine Gastroenterology
DX: Z12.11 Encounter for screening for malignant neoplasm of colon (principal); K64.8 Other hemorrhoids; Z85.038 Personal history of other malignant neoplasm of large intestine; Z90.49 Acquired absence of other specified parts of digestive tract; Z98.0 Intestinal bypass and anastomosis status; I11.0 Hypertensive heart disease with heart failure; I50.9 Heart failure, unspecified; E78.5 Hyperlipidemia, unspecified; E11.9 Type 2 diabetes mellitus without complications; F41.9 Anxiety disorder, unspecified; Z91.041 Radiographic dye allergy status; Z79.899 Other long term (current) drug therapy
CPT/HCPCS: J2704; J2001; G0105; 45378

== ENCOUNTER 2022-08-16 11:37 | Emergency (ER) | payer MEDICARE, BC ==
[2022-08-16 11:42] VITALS: TEMP 97.5
[2022-08-16] MEDS ORDERED: ONDANSETRON 4 MG/2 ML VIAL IVP STA (12:41)
[2022-08-16] MEDS ORDERED: SODIUM CHLORIDE 0.9% 500 ML 500 ML IV STA (12:41)
[2022-08-16] MEDS ORDERED: MORPHINE SULFATE 4 MG/ML SYRINGE IVP STA (12:44)
[2022-08-16 13:15] LABS: Basophils # (A) 0.1 k/uL (0-0.2); Basophils % (A) 1 %; Eosinophils # (A) 0.1 k/uL (0-0.7); Eosinophils % (A) 2 %; HCT 37.6 % (34.0-46.0); HGB 12.7 gm/dL (11.4-16.0); Lymphocytes # (A) 0.7 k/uL (1.0-4.8); Lymphocytes % (A) 9 %; MCH 31.7 pg (25.0-35.0); MCHC 33.8 g/dL (31.0-37.0); MCV 93.8 fL (80.0-100.0); Mean Platelet Volume 7.6; Monocytes # (A) 0.3 k/uL (0-1.0); Monocytes % (A) 5 %; Neutrophils % (A) 82 %; Platelet Count 210 k/uL (150-450); RBC 4.01 m/uL (3.80-5.40); RDW 14.8 % (11.5-15.5); WBC 7.3 k/uL (3.8-10.6)
[2022-08-16 13:32] LABS: INR 1.8 (<1.2); Partial Thromboplastin Time 29.8 sec (22.0-30.0); Prothrombin Time 17.9 sec (9.0-12.0)
[2022-08-16 13:33] LABS: Potassium 4.8 mmol/L (3.5-5.1); Total Bilirubin 1.2 mg/dL (0.2-1.3); Total Protein 7.5 g/dL (6.3-8.2)
--- NOTE | 2022-08-16 13:53 | CT ---
EXAMINATION TYPE: CT abdomen pelvis wo con CT DLP: 465 mGycm, Automated exposure control for dose reduction was used. DATE OF EXAM: 08/16/2022 1:40 PM COMPARISON: PET/CT 03/13/2022 CLINICAL INDICATION:Female, 82 years old with history of ab pain, hx cancer; TECHNIQUE: Axial CT of the abdomen and pelvis. Sagittal and coronal reformats were created on a [employer] workstation. Contrast used: None Oral contrast used: None FINDINGS: LOWER CHEST: Heart is enlarged for size. There is coronary artery atherosclerosis. ABDOMEN LIVER: Scattered hepatic cysts are present. GALLBLADDER AND BILE DUCTS: The gallbladder surgically absent. PANCREAS: Unremarkable. SPLEEN: Unremarkable. ADRENAL GLANDS: Unremarkable. KIDNEYS AND URETERS: No evidence of hydronephrosis or renal calculus. The ureters are unremarkable. PELVIS BLADDER: Unremarkable REPRODUCTIVE: Unremarkable. ABDOMEN & PELVIS equal and working on trying to finish 41 STOMACH AND BOWEL: No evidence of bowel obstruction. Scattered clonic diverticula present. Postsurgic al changes to the bowel. PERITONEUM: No evidence of pneumoperitoneum or free fluid. VASCULATURE: No evidence of aortic aneurysm. Atherosclerosis of the arterial vasculature. MUSCULOSKELETAL: No acute osseous abnormalities, mild multilevel disc degeneration changes and facet joint arthropathy. LYMPH NODES: No gross evidence for lymphadenopathy. SOFT TISSUE/ABDOMINAL WALL: Abdominal wall soft tissue which is FDG avid on prior is redemonstrated o n the right measuringr up to 5.3 x 3.6 and on the left measuring 3.4 x 2.5 cm. IMPRESSION: 1. Interval enlarging bilateral chest wall soft tissue areas which were mildly FDG avid lesions on p rior PET 03/13/2022. Consider follow-up PET/CT for progressive disease. No definitive evidence for int ra-abdominal lymphadenopathy or recurrent mass. 2. No evidence for intra-abdominal soft tissue or mass to suggest recurrence. 3. Hepatic cysts. 4. Marked cardiomegaly. 5. Colonic diverticulosis.
[2022-08-16 14:00] VITALS: RESP 18
[2022-08-16 14:11] LABS: Appearance,Urine Clear (Clear); Bilirubin,Urine Negative (Negative); Blood,Urine Negative (Negative); Color,Urine Light Yellow; Glucose,Urine (UA) Negative (Negative); Ketones,Urine Negative (Negative); Leukocyte Esterase,Urine Negative (Negative); Nitrite,Urine Negative (Negative); Protein,Urine Negative (Negative); Specific Gravity,Urine 1.014 (1.001-1.035); Urobilinogen,Urine <2.0 mg/dL (<2.0)
--- NOTE | 2022-08-16 15:00 | ED ---
Abdominal Pain HPI - General Chief Complaint: Abdominal Pain Stated Complaint: ABD pain Time Seen by Provider: 08/16/22 12:00 Source: patient Mode of arrival: ambulatory Limitations: no limitations - History of Present Illness Initial Comments: 82-year-old female with past medical history of rectal cancer, breast cancer who presents to the emergency Department with abdominal pain. States that she has had abdominal pain for the past few months however it has gotten more constant and worse in severity. Located in the left and right upper quadrants. States that she followed with Dr. Barajas. She was told that she has scar tissue and should take Tylenol for her pain however states that Tylenol has not been touching her pain recently. She denies diarrhea, black or bloody stools. Does have dark stools from iron use. Admits to some constipation. No changes in her urination to include dysuria, hematuria or difficulty voiding. No other allev iating, precipitating or modifying factors - Related Data Home Medications Medication Instructions Recorded Confirmed Simvastatin [Zocor] 40 mg PO DAILY 03/18/17 08/19/22 Furosemide [Lasix] 40 mg PO BID 06/03/18 08/19/22 allopurinoL [Zyloprim] 100 mg PO DAILY 01/14/19 08/19/22 calcitrioL [Rocaltrol] 0.25 mcg PO WEEKLY 01/14/19 08/19/22 Spironolactone [Aldactone] 25 mg PO DAILY 01/24/19 08/19/22 Warfarin [Coumadin] 2.5 mg PO HS 12/01/21 08/19/22 atenoloL [Tenormin] 25 mg PO BID 02/12/22 08/19/22 Acetaminophen [Tylenol] 500 mg PO DIRECTED PRN 03/27/22 08/19/22 Cholecalciferol [Vitamin D3 (25 25 mcg PO WEEKLY 03/27/22 08/19/22 Mcg = 1000 Iu)] Ferrous Sulfate [Feosol] 325 mg PO DAILY 03/27/22 08/19/22 Melatonin 5 mg PO HS PRN 03/27/22 08/19/22 Doxylamine Succinate [Unisom] 25 mg PO HS PRN 08/19/22 08/19/22 Previous Rx's Medication Instructions Recorded hydrALAZINE HCL [Apresoline] 25 mg PO BID #60 tab 06/16/18 HYDROcodone/APAP 5-325MG [[place] 1 tab PO Q6HR PRN 3 Days #12 tab 08/16/22 5-325] Allergies Allergy/AdvReac Type Severity Reaction Status Date / Time Iodinated Contrast Media Allergy Anaphylaxis Verified 08/19/22 14:59 [Iodinated Contrast Media - IV Dye] Review of Systems ROS Statement: Those systems with pertinent positive or pertinent negative responses have been documented in the HPI. ROS Other: All systems not noted in ROS Statement are negative. Past Medical History Past Medical History: Atrial Fibrillation, Cancer, Heart Failure, Diabetes Mellitus, GERD/Reflux, Hyperlipidemia, Hypertension Additional Past Medical History / Comment(s): Neuropathy feet., hx Rheumatic fever., gout , hx colon CA with resection., hx breast cancer., hx of diabetic toe ulcers., states received covid vaccine x2 doses and had a problem with her heart and not able to take anymore covid vaccines., Pacemaker., states diarrhea & constipation, states having right abdominal pain. History of Any Multi-Drug Resistant Organisms: None Reported Past Surgical History: Appendectomy, Bowel Resection, Cardiac Valve Replacement, Cholecystectomy, Hysterectomy, Pacemaker Additional Past Surgical History / Comment(s): 1994 mitral and aortic mechanical valves placed. Pacemakers-generator change 11/28/21., Colonoscopy. Debridements bilateral great toe diabetic ulcers. , cataracts with lens implants. Past Anesthesia/Blood Transfusion Reactions: No Reported Reaction Additional Past Anesthesia/Blood Transfusion Reaction / Comment(s): . Type of Cardiac Device: Permanent Pacemaker Device Placement Date:: Pt cannot recall date of last pacer insertion but battery changed 2011 Past Psychological History: Anxiety Smoking Status: Never smoker Past Alcohol Use History: Rare Past Drug Use History: None Reported - Past Family History Brother(s) Additional Family Medical History / Comment(s): brothers had " heart problems" Father History Unknown: Yes Family Medical History: No Reported History Additional Family Medical History / Comment(s): Father committed suicide in his 50s. Mother History Unknown: Yes Family Medical History: No Reported History Additional Family Medical History / Comment(s): Mother was healthy and lived to be 92 yrs old. Daughter(s) Family Medical History: Cancer General Exam Limitations: no limitations General appearance: alert, in no apparent distress Head exam: Present: atraumatic, normocephalic, normal inspection Eye exam: Present: normal appearance, PERRL, EOMI. Absent: scleral icterus, conjunctival injection, periorbital swelling ENT exam: Present: normal exam, mucous membranes moist Neck exam: Present: normal inspection. Absent: tenderness, meningismus, lymphadenopathy Respiratory exam: Present: normal lung sounds bilaterally. Absent: respiratory distress, wheezes, rales, rhonchi, stridor Cardiovascular Exam: Present: regular rate, normal rhythm, normal heart sounds. Absent: systolic murmur, diastolic murmur, rubs, gallop, clicks GI/Abdominal exam: Present: soft, tenderness (tenderness RUQ, LUQ. ), normal bowel sounds. Absent: distended, guarding, rebound, rigid Extremities exam: Present: normal inspection, full ROM, normal capillary refill. Absent: tenderness, pedal edema, joint swelling, calf tenderness Back exam: Present: normal inspection Neurological exam: Present: alert, oriented X3, CN II-XII intact Psychiatric exam: Present: normal affect, normal mood Skin exam: Present: warm, dry, intact, normal color. Absent: rash Course Vital Signs 08/16/22 08/16/22 08/16/22 11:40 13:59 15:36 Temperature 97.5 F L Pulse Rate 95 63 60 Respiratory 20 18 18 Rate Blood Pressure 167/81 177/73 126/63 O2 Sat by Pulse 98 99 98 Oximetry Medical Decision Making - Medical Decision Making Upon arrival patient was placed into room 7. Thorough history and physical exam is performed. IV access is established. Patient is given Motrin for pain control. Laboratory studies are reviewed. INR is subtherapeutic at 1.8. CT of the patient's abdomen pelvis demonstrates enlarging bilateral chest wall soft tissue areas which were mildly positive on PET scan from February. I did discuss these findings with the patient. Patient's is informed that she needs to follow-up with her oncologist and surgeon for evaluation of these enlarges areas. Patient may need biopsy to rule out recurrent cancer. I will place her on [place] for 3 days until she is able to get into her physician. Return for any new or worsening symptoms. Patient was agreeable and discharged home in stable condition - Lab Data Result diagrams: 08/16/22 13:06 08/16/22 13:06 Lab Results 08/16/22 08/16/22 08/16/22 Range/Units 13:06 13:06 13:06 WBC 7.3 (3.8-10.6) k/uL RBC 4.01 (3.80-5.40) m/uL Hgb 12.7 (11.4-16.0) gm/dL Hct 37.6 (34.0-46.0) % MCV 93.8 (80.0-100.0) fL MCH 31.7 (25.0-35.0) pg MCHC 33.8 (31.0-37.0) g/dL RDW 14.8 (11.5-15.5) % Plt Count 210 (150-450) k/uL MPV 7.6 Neutrophils % 82 % Lymphocytes % 9 % Monocytes % 5 % Eosinophils % 2 % Basophils % 1 % Neutrophils # 6.0 (1.3-7.7) k/uL Lymphocytes # 0.7 L (1.0-4.8) k/uL Monocytes # 0.3 (0-1.0) k/uL Eosinophils # 0.1 (0-0.7) k/uL Basophils # 0.1 (0-0.2) k/uL PT 17.9 H (9.0-12.0) sec INR 1.8 H (<1.2) APTT 29.8 (22.0-30.0) sec Sodium 137 (137-145) mmol/L Potassium 4.8 (3.5-5.1) mmol/L Chloride 99 (98-107) mmol/L Carbon Dioxide 25 (22-30) mmol/L Anion Gap 13 mmol/L BUN 38 H (7-17) mg/dL Creatinine 1.16 H (0.52-1.04) mg/dL Est GFR (CKD-EPI)AfAm 50 (>60 ml/min/1.73 sqM) Est GFR (CKD-EPI)NonAf 44 (>60 ml/min/1.73 sqM) Glucose 96 (74-99) mg/dL Plasma Lactic Acid [place] (0.7-2.0) mmol/L Calcium 10.0 (8.4-10.2) mg/dL Total Bilirubin 1.2 (0.2-1.3) mg/dL AST 29 (14-36) U/L ALT 18 (4-34) U/L Alkaline Phosphatase 75 (38-126) U/L Total Protein 7.5 (6.3-8.2) g/dL Albumin 5.0 (3.5-5.0) g/dL Lipase 158 (23-300) U/L Urine Color Urine Appearance (Clear) Urine pH (5.0-8.0) Ur Specific [place] (1.001-1.035) Urine Protein (Negative) Urine Glucose (UA) (Negative) Urine Ketones (Negative) Urine Blood (Negative) Urine Nitrite (Negative) Urine Bilirubin (Negative) Urine Urobilinogen (<2.0) mg/dL Ur Leukocyte Esterase (Negative) 08/16/22 08/16/22 Range/Units 13:06 13:55 WBC (3.8-10.6) k/uL RBC (3.80-5.40) m/uL Hgb (11.4-16.0) gm/dL Hct (34.0-46.0) % MCV (80.0-100.0) fL MCH (25.0-35.0) pg MCHC (31.0-37.0) g/dL RDW (11.5-15.5) % Plt Count (150-450) k/uL MPV Neutrophils % % Lymphocytes % % Monocytes % % Eosinophils % % Basophils % % Neutrophils # (1.3-7.7) k/uL Lymphocytes # (1.0-4.8) k/uL Monocytes # (0-1.0) k/uL Eosinophils # (0-0.7) k/uL Basophils # (0-0.2) k/uL PT (9.0-12.0) sec INR (<1.2) APTT (22.0-30.0) sec Sodium (137-145) mmol/L Potassium (3.5-5.1) mmol/L Chloride (98-107) mmol/L Carbon Dioxide (22-30) mmol/L Anion Gap mmol/L BUN (7-17) mg/dL Creatinine (0.52-1.04) mg/dL Est GFR (CKD-EPI)AfAm (>60 ml/min/1.73 sqM) Est GFR (CKD-EPI)NonAf (>60 ml/min/1.73 sqM) Glucose (74-99) mg/dL Plasma Lactic Acid [place] 0.9 (0.7-2.0) mmol/L Calcium (8.4-10.2) mg/dL Total Bilirubin (0.2-1.3) mg/dL AST (14-36) U/L ALT (4-34) U/L Alkaline Phosphatase (38-126) U/L Total Protein (6.3-8.2) g/dL Albumin (3.5-5.0) g/dL Lipase (23-300) U/L Urine Color Light Yellow Urine Appearance Clear (Clear) Urine pH 5.0 (5.0-8.0) Ur Specific [place] 1.014 (1.001-1.035) Urine Protein Negative (Negative) Urine Glucose (UA) Negative (Negative) Urine Ketones Negative (Negative) Urine Blood Negative (Negative) Urine Nitrite Negative (Negative) Urine Bilirubin Negative (Negative) Urine Urobilinogen <2.0 (<2.0) mg/dL Ur Leukocyte Esterase Negative (Negative) Disposition Clinical Impression: History of rectal cancer, Abdominal wall mass Disposition: HOME SELF-CARE Condition: Stable Instructions (If sedation given, give patient instructions): Soft Tissue Mass (ED) Additional Instructions: You have 2 masses on your abdominal wall. You need to call your oncologist in the morning to see what further workup needs to be completed in regards to these. Take the pain medication as needed for pain. You can cut the [place] in half. Do not take Tylenol at the same time if you are taking the [place]. Return for any new or worsening symptoms. Prescriptions: HYDROcodone/APAP 5-325MG [[place] 5-325] 1 tab PO Q6HR PRN 3 Days #12 tab PRN Reason: Pain Is patient prescribed a controlled substance at d/c from ED?: Yes When asked, does pt state using other controlled substances?: No If prescribed controlled substance>3 days was MAPS reviewed?: Prescribed <3 Days If opioid is for acute pain is fill amount 7 days or less?: Yes If Rx opioid, was Start Talking consent form obtained?: Yes Referrals: Home Garza MD [Primary Care Provider] - 1-2 days Ronn Barajas MD [STAFF PHYSICIAN] - 1-2 days Time of Disposition: 15:02
[2022-08-16 15:36] VITALS: BP 126/63; PULSE 60
[2022-08-16] MEDS ORDERED: ACETAMINOPHEN TAB 500 MG TAB PO STA (15:40)
== END 2022-08-16 15:56 | disposition home or self-care (01) ==
LOC: EC 11:37
DX: R19.00 Intra-abdominal and pelvic swelling, mass and lump, unspecified site (principal); I11.0 Hypertensive heart disease with heart failure; I50.9 Heart failure, unspecified; E11.40 Type 2 diabetes mellitus with diabetic neuropathy, unspecified; E78.5 Hyperlipidemia, unspecified; Z85.048 Personal history of other malignant neoplasm of rectum, rectosigmoid junction, and anus; Z86.79 Personal history of other diseases of the circulatory system; Z79.01 Long term (current) use of anticoagulants; Z79.899 Other long term (current) drug therapy; Z91.041 Radiographic dye allergy status
CPT/HCPCS: 36415; 80053; 83605; 83690; 85025; 85610; 85730; 81003; 74176; 99284; 96374; 96375; 96361; J2270; J2405

== ENCOUNTER 2022-08-20 10:41 | Emergency (ER) | payer MEDICARE, BC ==
[2022-08-20 11:55] VITALS: BP 156/72; PULSE 78; RESP 20; TEMP 98
--- NOTE | 2022-08-20 13:02 | ED ---
General Adult HPI - General Chief complaint: Recheck/Abnormal Lab/Rx Stated complaint: med refill Source: patient, RN notes reviewed Mode of arrival: ambulatory Limitations: no limitations - History of Present Illness Initial comments: Patient is a pleasant 82-year-old female presenting to the emergency department requesting refill of hydrocodone 5/325 #12. Patient states she's been having abdominal pain for months. Patient does have history of cancer. Computed tomography scan was done and they did find a mass. This is planning to have biopsy done soon. Patient finished her medication like a refill. Patient states no recent change in pain. No vomiting. No constipation or diarrhea. Patient does not feel further diagnostic testing is needed at this time and just wants a med refill and discharge. - Related Data Home Medications Medication Instructions Recorded Confirmed Simvastatin [Zocor] 40 mg PO DAILY 03/18/17 08/19/22 Furosemide [Lasix] 40 mg PO BID 06/03/18 08/19/22 allopurinoL [Zyloprim] 100 mg PO DAILY 01/14/19 08/19/22 calcitrioL [Rocaltrol] 0.25 mcg PO WEEKLY 01/14/19 08/19/22 Spironolactone [Aldactone] 25 mg PO DAILY 01/24/19 08/19/22 Warfarin [Coumadin] 2.5 mg PO HS 12/01/21 08/19/22 atenoloL [Tenormin] 25 mg PO BID 02/12/22 08/19/22 Acetaminophen [Tylenol] 500 mg PO DIRECTED PRN 03/27/22 08/19/22 Cholecalciferol [Vitamin D3 (25 25 mcg PO WEEKLY 03/27/22 08/19/22 Mcg = 1000 Iu)] Ferrous Sulfate [Feosol] 325 mg PO DAILY 03/27/22 08/19/22 Melatonin 5 mg PO HS PRN 03/27/22 08/19/22 Doxylamine Succinate [Unisom] 25 mg PO HS PRN 08/19/22 08/19/22 Previous Rx's Medication Instructions Recorded hydrALAZINE HCL [Apresoline] 25 mg PO BID #60 tab 06/16/18 HYDROcodone/APAP 5-325MG [[place] 1 tab PO Q6HR PRN 3 Days #12 tab 08/16/22 5-325] HYDROcodone/APAP 5-325MG [[place] 1 tab PO Q6HR PRN 3 Days #12 tab 08/20/22 5-325] Allergies Allergy/AdvReac Type Severity Reaction Status Date / Time Iodinated Contrast Media Allergy Anaphylaxis Verified 08/19/22 14:59 [Iodinated Contrast Media - IV Dye] Review of Systems ROS Statement: Those systems with pertinent positive or pertinent negative responses have been documented in the HPI. ROS Other: All systems not noted in ROS Statement are negative. Constitutional: Denies: fever Eyes: Denies: eye pain ENT: Denies: ear pain Respiratory: Denies: cough Cardiovascular: Denies: chest pain Endocrine: Denies: fatigue Gastrointestinal: Reports: as per HPI, abdominal pain Genitourinary: Denies: dysuria Musculoskeletal: Denies: back pain Skin: Denies: rash Neurological: Denies: weakness Past Medical History Past Medical History: Atrial Fibrillation, Cancer, Heart Failure, Diabetes Mellitus, GERD/Reflux, Hyperlipidemia, Hypertension Additional Past Medical History / Comment(s): Neuropathy feet., hx Rheumatic fever., gout , hx colon CA with resection., hx breast cancer., hx of diabetic toe ulcers., states received covid vaccine x2 doses and had a problem with her heart and not able to take anymore covid vaccines., Pacemaker., states diarrhea & constipation, states having right abdominal pain, no longer on any medications for diabetes History of Any Multi-Drug Resistant Organisms: None Reported Past Surgical History: Appendectomy, Bowel Resection, Cardiac Valve Replacement, Cholecystectomy, Hysterectomy, Pacemaker Additional Past Surgical History / Comment(s): 1994 mitral and aortic mechanical valves placed. Pacemakers-generator change 11/28/21., Colonoscopy. Debridements bilateral great toe diabetic ulcers. , cataracts with lens implants Past Anesthesia/Blood Transfusion Reactions: No Reported Reaction Additional Past Anesthesia/Blood Transfusion Reaction / Comment(s): . Type of Cardiac Device: Permanent Pacemaker Device Placement Date:: Pt cannot recall date of last pacer insertion but battery changed 2011 Past Psychological History: Anxiety Smoking Status: Never smoker Past Alcohol Use History: Rare Past Drug Use History: None Reported - Past Family History Brother(s) Additional Family Medical History / Comment(s): brothers had " heart problems" Father History Unknown: Yes Family Medical History: No Reported History Additional Family Medical History / Comment(s): Father committed suicide in his 50s. Mother History Unknown: Yes Family Medical History: No Reported History Additional Family Medical History / Comment(s): Mother was healthy and lived to be 92 yrs old. Daughter(s) Family Medical History: Cancer General Exam Limitations: no limitations General appearance: alert, in no apparent distress Head exam: Present: normocephalic Eye exam: Present: normal appearance Respiratory exam: Present: normal lung sounds bilaterally Cardiovascular Exam: Present: regular rate, normal rhythm Expanded Peripheral pulses: 2+: Posterior Tibialis (R), Posterior Tibialis (L) GI/Abdominal exam: Present: soft. Absent: distended, tenderness Extremities exam: Present: normal inspection Neurological exam: Present: alert Psychiatric exam: Present: normal affect, normal mood Skin exam: Present: normal color Course Vital Signs 08/20/22 11:52 Temperature 98 F Pulse Rate 78 Respiratory 20 Rate Blood Pressure 156/72 O2 Sat by Pulse 97 Oximetry Disposition Clinical Impression: Encounter for medication refill Disposition: HOME SELF-CARE Condition: Stable Instructions (If sedation given, give patient instructions): Chronic Abdominal Pain (ED) Additional Instructions: Prescription sent to pharmacy. Please do follow-up with your primary care physician in the next day or 2 for recheck. Please follow-up with biopsy as planned. Return for increased pain, fever, vomiting, constipation or diarrhea, worsening or changing symptoms or any other concerns. Prescriptions: HYDROcodone/APAP 5-325MG [[place] 5-325] 1 tab PO Q6HR PRN 3 Days #12 tab PRN Reason: Pain Is patient prescribed a controlled substance at d/c from ED?: Yes When asked, does pt state using other controlled substances?: No If prescribed controlled substance>3 days was MAPS reviewed?: Prescribed <3 Days If opioid is for acute pain is fill amount 7 days or less?: Yes If Rx opioid, was Start Talking consent form obtained?: Yes Referrals: Home Garza MD [Primary Care Provider] - 1-2 days Time of Disposition: 13:02
== END 2022-08-20 13:20 | disposition home or self-care (01) ==
LOC: EC 10:41
DX: Z76.0 Encounter for issue of repeat prescription (principal); I11.0 Hypertensive heart disease with heart failure; I50.9 Heart failure, unspecified; E11.40 Type 2 diabetes mellitus with diabetic neuropathy, unspecified; E78.5 Hyperlipidemia, unspecified; Z86.79 Personal history of other diseases of the circulatory system; Z79.01 Long term (current) use of anticoagulants; Z79.899 Other long term (current) drug therapy; Z91.041 Radiographic dye allergy status
CPT/HCPCS: 99281

== ENCOUNTER 2022-08-24 11:41 | Observation (INO) | payer MEDICARE, BC ==
[2022-08-24 15:22] LABS: Basophils # (A) 0.1 k/uL (0-0.2); Basophils % (A) 1 %; Eosinophils # (A) 0.1 k/uL (0-0.7); Eosinophils % (A) 1 %; HCT 40.2 % (34.0-46.0); HGB 13.7 gm/dL (11.4-16.0); Lymphocytes # (A) 1.1 k/uL (1.0-4.8); Lymphocytes % (A) 11 %; MCH 31.6 pg (25.0-35.0); MCHC 34.1 g/dL (31.0-37.0); MCV 92.8 fL (80.0-100.0); Monocytes # (A) 0.4 k/uL (0-1.0); Monocytes % (A) 4 %; Neutrophils # (A) 7.9 k/uL (1.3-7.7); Neutrophils % (A) 81 %; Platelet Count 246 k/uL (150-450); RBC 4.33 m/uL (3.80-5.40); RDW 14.6 % (11.5-15.5); WBC 9.7 k/uL (3.8-10.6)
[2022-08-24 15:32] LABS: Albumin 5.5 g/dL (3.5-5.0); Calcium 10.4 mg/dL (8.4-10.2); Potassium 5.2 mmol/L (3.5-5.1); Total Bilirubin 1.8 mg/dL (0.2-1.3); Total Protein 8.2 g/dL (6.3-8.2)
[2022-08-24] MEDS ORDERED: HYDROmorphone 1 MG/ML 1 ML SYRINGE IVP STA (16:05)
--- NOTE | 2022-08-24 16:24 | ED ---
Abdominal Pain HPI - General Chief Complaint: Abdominal Pain Stated Complaint: abdominal mass/pain Time Seen by Provider: 08/24/22 15:47 Source: patient Mode of arrival: ambulatory Limitations: no limitations - History of Present Illness Initial Comments: Patient is an 82-year-old female with known abdominal mass presenting with chief complaint of abdominal pain. Patient has scheduled biopsy of abdominal mass, she has been taking Tylenol 3 for pain control, but states that recently is not sufficient in controlling her pain. She denies any nausea, vomiting, diarrhea, hematochezia, melena, fever, chills, chest pain, shortness of breath. - Related Data Home Medications Medication Instructions Recorded Confirmed Simvastatin [Zocor] 40 mg PO HS 03/18/17 08/24/22 Furosemide [Lasix] 40 mg PO BID 06/03/18 08/24/22 allopurinoL [Zyloprim] 100 mg PO DAILY 01/14/19 08/24/22 calcitrioL [Rocaltrol] 0.25 mcg PO FR 01/14/19 08/24/22 Spironolactone [Aldactone] 50 mg PO DAILY 01/24/19 08/24/22 Warfarin [Coumadin] 1.25 mg PO MOWEFR 12/01/21 08/24/22 atenoloL [Tenormin] 25 mg PO BID 02/12/22 08/24/22 Cholecalciferol [Vitamin D3 (25 25 mcg PO DAILY 03/27/22 08/24/22 Mcg = 1000 Iu)] Ferrous Sulfate [Feosol] 325 mg PO BID 03/27/22 08/24/22 Warfarin [Coumadin] 2.5 mg PO SUTUTHSA 08/20/22 08/24/22 Previous Rx's Medication Instructions Recorded hydrALAZINE HCL [Apresoline] 25 mg PO BID #60 tab 06/16/18 Allergies Allergy/AdvReac Type Severity Reaction Status Date / Time Iodinated Contrast Media Allergy Anaphylaxis Verified 08/24/22 18:13 [Iodinated Contrast Media - IV Dye] Review of Systems ROS Statement: Those systems with pertinent positive or pertinent negative responses have been documented in the HPI. ROS Other: All systems not noted in ROS Statement are negative. Past Medical History Past Medical History: Atrial Fibrillation, Cancer, Heart Failure, Diabetes Mellitus, GERD/Reflux, Hyperlipidemia, Hypertension Additional Past Medical History / Comment(s): Neuropathy feet., hx Rheumatic fever., gout , hx colon CA with resection., hx breast cancer., hx of diabetic toe ulcers., states received covid vaccine x2 doses and had a problem with her heart and not able to take anymore covid vaccines., Pacemaker., states diarrhea & constipation, states having right abdominal pain, no longer on any medications for diabetes History of Any Multi-Drug Resistant Organisms: None Reported Past Surgical History: Appendectomy, Bowel Resection, Cardiac Valve Replacement, Cholecystectomy, Hysterectomy, Pacemaker Additional Past Surgical History / Comment(s): 1994 mitral and aortic mechanical valves placed. Pacemakers-generator change 11/28/21., Colonoscopy. Debridements bilateral great toe diabetic ulcers. , cataracts with lens implants Past Anesthesia/Blood Transfusion Reactions: No Reported Reaction Additional Past Anesthesia/Blood Transfusion Reaction / Comment(s): . Type of Cardiac Device: Permanent Pacemaker Device Placement Date:: Pt cannot recall date of last pacer insertion but pro fally changed 2011 Past Psychological History: Anxiety Smoking Status: Never smoker Past Alcohol Use History: Rare Past Drug Use History: None Reported - Past Family History Brother(s) Additional Family Medical History / Comment(s): brothers had " heart problems" Father History Unknown: Yes Family Medical History: No Reported History Additional Family Medical History / Comment(s): Father committed suicide in his 50s. Mother History Unknown: Yes Family Medical History: No Reported History Additional Family Medical History / Comment(s): Mother was healthy and lived to be 92 yrs old. Daughter(s) Family Medical History: Cancer General Exam Limitations: no limitations General appearance: alert, in no apparent distress Head exam: Present: atraumatic, normocephalic, normal inspection Eye exam: Present: normal appearance, PERRL, EOMI. Absent: scleral icterus, conjunctival injection, periorbital swelling Neck exam: Present: normal inspection Respiratory exam: Present: normal lung sounds bilaterally. Absent: respiratory distress, wheezes, rales, rhonchi, stridor Cardiovascular Exam: Present: regular rate, normal rhythm, normal heart sounds. Absent: systolic murmur, diastolic murmur, rubs, gallop, clicks GI/Abdominal exam: Present: soft. Absent: distended, tenderness, guarding, rebound, rigid Neurological exam: Present: alert, oriented X3, CN II-XII intact Psychiatric exam: Present: normal affect, normal mood Skin exam: Present: warm, dry, intact, normal color. Absent: rash Course Vital Signs 08/24/22 08/24/22 08/24/22 11:50 16:25 17:13 Temperature 97.7 F Pulse Rate 72 62 60 Respiratory 20 18 18 Rate Blood Pressure 150/84 122/59 148/86 O2 Sat by Pulse 99 98 98 Oximetry Medical Decision Making - Medical Decision Making Patient is an 82-year-old female presenting with chief complaint of abdominal pain. Patient has known abdominal mass, she has a biopsy scheduled on 09/03. Patient has been taking Tylenol 3 for pain control at home, but states that recently it is not adequate in controlling her pain. She denies any change in the characteristic or location of her pain. Physical examination is unremarkable. Labs show potassium of 5.2. BUN and creatinine are elevated but consistent with baseline. Her bilirubin is elevated at 1.8, consistent with baseline. Lab work shows no leukocytosis or anemia. EKG was obtained due to hyperkalemia, this showed some new T-wave inversions and ST depression. Tropon in is 0.013, patient has history of elevated troponin. Patient will be admitted for observation due to EKG changes. I spoke with Dr. Best who accepted admission. I discussed this case with my attending Dr. Carlin. - Lab Data Result diagrams: 08/24/22 15:03 08/24/22 15:03 Lab Results 08/24/22 08/24/22 08/24/22 Range/Units 15:03 15:03 15:03 WBC 9.7 (3.8-10.6) k/uL RBC 4.33 (3.80-5.40) m/uL Hgb 13.7 (11.4-16.0) gm/dL Hct 40.2 (34.0-46.0) % MCV 92.8 (80.0-100.0) fL MCH 31.6 (25.0-35.0) pg MCHC 34.1 (31.0-37.0) g/dL RDW 14.6 (11.5-15.5) % Plt Count 246 (150-450) k/uL MPV 8.0 Neutrophils % 81 % Lymphocytes % 11 % Monocytes % 4 % Eosinophils % 1 % Basophils % 1 % Neutrophils # 7.9 H (1.3-7.7) k/uL Lymphocytes # 1.1 (1.0-4.8) k/uL Monocytes # 0.4 (0-1.0) k/uL Eosinophils # 0.1 (0-0.7) k/uL Basophils # 0.1 (0-0.2) k/uL Sodium 136 L (137-145) mmol/L Potassium 5.2 H (3.5-5.1) mmol/L Chloride 95 L (98-107) mmol/L Carbon Dioxide 24 (22-30) mmol/L Anion Gap 17 mmol/L BUN 55 H (7-17) mg/dL Creatinine 1.14 H (0.52-1.04) mg/dL Est GFR (CKD-EPI)AfAm 51 (>60 ml/min/1.73 sqM) Est GFR (CKD-EPI)NonAf 45 (>60 ml/min/1.73 sqM) Glucose 121 H (74-99) mg/dL Calcium 10.4 H (8.4-10.2) mg/dL Total Bilirubin 1.8 H (0.2-1.3) mg/dL AST 31 (14-36) U/L ALT 20 (4-34) U/L Alkaline Phosphatase 94 (38-126) U/L Troponin I 0.013 (0.000-0.034) ng/mL Total Protein 8.2 (6.3-8.2) g/dL Albumin 5.5 H (3.5-5.0) g/dL Disposition Clinical Impression: EKG abnormalities Disposition: ADMITTED IP TO THIS [facility] Condition: Fair Referrals: Home Garza MD [Primary Care Provider] - 1-2 days Time of Disposition: 18:44 Decision to Admit Reason: Admit from EC Decision Date: 08/24/22 Decision Time: 18:45
[2022-08-24] MEDS ORDERED: SODIUM CHLORIDE 0.9% 1,000 ML IV ONE (16:34)
[2022-08-24] MEDS ORDERED: ONDANSETRON 4 MG/2 ML VIAL IVP STA (17:12)
[2022-08-24] MEDS ORDERED: ONDANSETRON 4 MG/2 ML VIAL IVP PRN (19:10)
[2022-08-24] MEDS ORDERED: NALOXONE 0.4 MG/ML 1 ML VIAL IV PRN (19:10)
[2022-08-24] MEDS: HYDROmorphone 1 MG/ML 1 ML SYRINGE IVP PRN (20:00)
--- NOTE | 2022-08-24 20:45 | P.HPIM ---
History of Present Illness H&P Date: 08/24/22 Chief Complaint: Abdominal pain 82 year old female with history of afib s/p pacemaker, on coumadin , h/o valvular heart disease , history of invasive ductal carcinoma of the breast this is patients third visit to the ED over the past week for the same problem patient comes in with complaint of worsening abd pain, of 2 months duration, she is scheduled for a biopsy on 09/03/22, but could not wait due to poor pain control , she has been taking Tylenol , and then was switched to Tylenol with codeine , however over past couple days , pain has became unbearable , she de scribes it as achy, sts sharp pain 8/10 in severity over LUQ , RUQ . she has had similar pain before (here is where the patient started becoming vague in her reporting not sure of what happened exactly ) and some kind of surgery has been done to it in the past which she believes is related to her left breast invasive ductal carcinoma which has been removed by lumpectomy as she was able to preserv e both breasts. she is not sure if she had colon cancer that was removed before. she denies any associated fever, chills, chest pain , nausea or vomiting, denies any changes in urinary or bowel habits , denies any GI bleeding. she lives alone , and is independent in her ADLS. she was worried that something bad would happen to her today , and decided to come in for evaluation . from a recent CT scan and PET scan , the problem seems to be related to some abnormal enlarging soft tissue growth related to the chest/abdominal wall. in the above mentioned areas RUQ and LUQ. Review of Systems Pertinent positives as noted in HPI. All other systems were reviewed and are negative Past Medical History Past Medical History: Atrial Fibrillation, Cancer, Heart Failure, Diabetes Mellitus, GERD/Reflux, Hyperlipidemia, Hypertension Additional Past Medical History / Comment(s): Neuropathy feet., hx Rheumatic fever., gout , hx colon CA with resection., hx breast cancer., hx of diabetic toe ulcers., states received covid vaccine x2 doses and had a problem with her heart and not able to take anymore covid vaccines., Pacemaker., states diarrhea & constipation, states having right abdominal pain, no longer on any medications for diabetes History of Any Multi-Drug Resistant Organisms: None Reported Past Surgical History: Appendectomy, Bowel Resection, Cardiac Valve Replacement, Cholecystectomy, Hysterectomy, Pacemaker Additional Past Surgical History / Comment(s): 1994 mitral and aortic mechanical valves placed. Pacemakers-generator change 11/28/21., Colonoscopy. Debridements bilateral great toe diabetic ulcers. , cataracts with lens implants Past Anesthesia/Blood Transfusion Reactions: No Reported Reaction Additional Past Anesthesia/Blood Transfusion Reaction / Comment(s): . Type of Cardiac Device: Permanent Pacemaker Device Placement Date:: Pt cannot recall date of last pacer insertion but battery changed 2011 Past Psychological History: Anxiety Smoking Status: Never smoker Past Alcohol Use History: Rare Past Drug Use History: None Reported - Past Family History Brother(s) Additional Family Medical History / Comment(s): brothers had " heart problems" Father History Unknown: Yes Family Medical History: No Reported History Additional Family Medical History / Comment(s): Father committed suicide in his 50s. Mother History Unknown: Yes Family Medical History: No Reported History Additional Family Medical History / Comment(s): Mother was healthy and lived to be 92 yrs old. Daughter(s) Family Medical History: Cancer Medications and Allergies Home Medications Medication Instructions Recorded Confirmed Type Simvastatin [Zocor] 40 mg PO HS 03/18/17 08/24/22 History Furosemide [Lasix] 40 mg PO BID 06/03/18 08/24/22 History hydrALAZINE HCL [Apresoline] 25 mg PO BID #60 tab 06/16/18 08/24/22 Rx allopurinoL [Zyloprim] 100 mg PO DAILY 01/14/19 08/24/22 History calcitrioL [Rocaltrol] 0.25 mcg PO FR 01/14/19 08/24/22 History Spironolactone [Aldactone] 50 mg PO DAILY 01/24/19 08/24/22 History Warfarin [Coumadin] 1.25 mg PO MOWEFR 12/01/21 08/24/22 History atenoloL [Tenormin] 25 mg PO BID 02/12/22 08/24/22 History Cholecalciferol [Vitamin D3 (25 25 mcg PO DAILY 03/27/22 08/24/22 History Mcg = 1000 Iu)] Ferrous Sulfate [Feosol] 325 mg PO BID 03/27/22 08/24/22 History Warfarin [Coumadin] 2.5 mg PO SUTUTHSA 08/20/22 08/24/22 History Allergies Allergy/AdvReac Type Severity Reaction Status Date / Time Iodinated Contrast Media Allergy Anaphylaxis Verified 08/24/22 18:13 [Iodinated Contrast Media - IV Dye] Physical Exam Vitals: Vital Signs Temp Pulse Resp BP Pulse Ox 08/24/22 17:13 60 18 148/86 98 08/24/22 16:25 62 18 122/59 98 08/24/22 11:50 97.7 F 72 20 150/84 99 Intake and Output 08/24/22 08/24/22 08/24/22 06:59 14:59 22:59 Other: Weight 77.111 kg Constitutional: No acute distress, conversant, pleasant Eyes: Anicteric sclerae, moist conjunctiva, Pupils equal round reactive to light ENMT: NC/AT Oropharynx clear, no erythema, or exudates Neck: Supple, no masses, or JVD No carotid bruits No thyromegaly Lungs: Clear to auscultation Clear to percussion Normal respiratory effort, no accessory muscle use Cardiovascular: Heart regular in rate and rhythm, systolic murmurs, no gallops, or rubs No peripheral edema Abdominal: Soft thickening and fullness to the soft tissue related to her RUQ and LUQ, no tenderness to palpation , some discomfort with deep palpation, no guarding, rebound or rigidity Abdomen moving with respiration Normoactive bowel sounds No hepatomegaly, No splenomegaly No palpable mass No abdominal wall hernia noted Skin: Normal temperature, tone, texture, turgor No induration No subcutaneous nodules No rash, lesions No ulcers Extremities: No digital cyanosis No clubbing Pedal pulses intact and symmetrical Radial pulses intact and symmetrical No calf tenderness Psychiatric: Alert and oriented to person, place Appropriate affect fair judgement Neuro Muscles Strength 5/5 in all 4 extremities Sensation to light touch grossly present throughout Cranial nerves II-XII grossly intact No focal sensory deficits Lymphatics: no palpable cervical or supraclavicular , or inguinal lymph nodes Results CBC & Chem 7: 08/24/22 15:03 08/24/22 15:03 Labs: Abnormal Lab Results - Last 24 Hours (Table) 08/24/22 08/24/22 Range/Units 15:03 15:03 Neutrophils # 7.9 H (1.3-7.7) k/uL Sodium 136 L (137-145) mmol/L Potassium 5.2 H (3.5-5.1) mmol/L Chloride 95 L (98-107) mmol/L BUN 55 H (7-17) mg/dL Creatinine 1.14 H (0.52-1.04) mg/dL Glucose 121 H (74-99) mg/dL Calcium 10.4 H (8.4-10.2) mg/dL Total Bilirubin 1.8 H (0.2-1.3) mg/dL Albumin 5.5 H (3.5-5.0) g/dL Assessment and Plan Assessment: uncontrolled abd pain related to soft tissue growth on the chest/abd wall pain control with opiates zofran for N/V IVF hydration with normal saline supportive care continue to follow up with oncology for biopsy as OP. uncontrolled hypertension resume atenolol , hydralazine clonidine PRN for systolic >180 chronic conditions afib s/p pacemaker on coumadin , atenolol , s/p pacemaker valvular heart disease DM, insulin sliding scale history of breast and colon cancer EKG is ventricular paced rhythm no report of chest pain or SOB blood work reviewed full code DVT PPX on coumadin
[2022-08-24] MEDS: hydrALAZINE HCL 25 MG TAB PO SCH (21:29)
[2022-08-24] MEDS: ATORVASTATIN 20 MG TAB PO SCH (21:29)
[2022-08-24] MEDS: atenoloL 25 MG TAB PO SCH (21:29)
[2022-08-24] MEDS: INSULIN ASPART (NovoLOG) 100 UNIT/ML VIAL SQ SCH (21:34)
[2022-08-24 21:37] LABS: Glucose,Whole Blood 131 mg/dL (70-110)
[2022-08-24] MEDS: SODIUM CHLORIDE 0.9% 1,000 ML IV SCH (21:42)
[2022-08-24 21:59] LABS: INR 2.1 (<1.2); Prothrombin Time 21.2 sec (9.0-12.0)
[2022-08-24] MEDS ORDERED: WARFARIN 1.25 MG TAB PO SCH (22:30)
[2022-08-25 00:35] LABS: Appearance,Urine Clear (Clear); Bilirubin,Urine Negative (Negative); Blood,Urine Negative (Negative); Color,Urine Light Yellow; Glucose,Urine (UA) Negative (Negative); Ketones,Urine Negative (Negative); Leukocyte Esterase,Urine Negative (Negative); Nitrite,Urine Negative (Negative); Protein,Urine Negative (Negative); Urobilinogen,Urine <2.0 mg/dL (<2.0)
[2022-08-25] MEDS: HYDROmorphone 1 MG/ML 1 ML SYRINGE IVP PRN ×2 (05:37→17:20)
[2022-08-25 06:39] LABS: Basophils % (A) 1 %; Eosinophils % (A) 1 %; HCT 33.9 % (34.0-46.0); HGB 11.3 gm/dL (11.4-16.0); Hypochromasia Slight; Lymphocytes # (A) 0.9 k/uL (1.0-4.8); Lymphocytes % (A) 14 %; MCH 32.4 pg (25.0-35.0); MCHC 33.5 g/dL (31.0-37.0); MCV 96.9 fL (80.0-100.0); Mean Platelet Volume 7.8; Monocytes # (A) 0.5 k/uL (0-1.0); Monocytes % (A) 7 %; Neutrophils # (A) 5.3 k/uL (1.3-7.7); Neutrophils % (A) 77 %; Platelet Count 221 k/uL (150-450); RDW 14.5 % (11.5-15.5); WBC 6.9 k/uL (3.8-10.6)
[2022-08-25 06:47] LABS: Albumin 4.3 g/dL (3.5-5.0); Total Bilirubin 1.5 mg/dL (0.2-1.3); Total Protein 6.4 g/dL (6.3-8.2)
[2022-08-25 07:11] LABS: INR 2.2 (<1.2); Prothrombin Time 21.7 sec (9.0-12.0)
[2022-08-25 07:39] LABS: Glucose,Whole Blood 105 mg/dL (70-110)
[2022-08-25] MEDS: INSULIN ASPART (NovoLOG) 100 UNIT/ML VIAL SQ SCH ×4 (08:38→22:08)
[2022-08-25] MEDS: atenoloL 25 MG TAB PO SCH ×2 (10:01→22:15)
[2022-08-25] MEDS: SPIRONOLACTONE 25 MG TAB PO SCH (10:01)
[2022-08-25] MEDS: hydrALAZINE HCL 25 MG TAB PO SCH ×2 (10:01→22:08)
[2022-08-25] MEDS: SODIUM CHLORIDE 0.9% 1,000 ML IV SCH ×2 (10:07→22:08)
[2022-08-25 12:56] LABS: Glucose,Whole Blood 191 mg/dL (70-110)
[2022-08-25 16:27] LABS: Glucose,Whole Blood 137 mg/dL (70-110)
--- NOTE | 2022-08-25 16:35 | P.PN ---
Subjective Progress Note Date: 08/25/22 Principal diagnosis: abdominal pain Hospital Course: 82-year-old female with history of atrial fibrillation status post pacemaker, on Coumadin, probably heart disease, invasive ductal cancer of the breast presented with acute on chronic abdominal pain. Her abdominal pain likely is in the setting of soft tissue growth on chest/abdomen wall. Her pain was not well controlled at home, which is why she presented to the hospital. She is supposed to follow up with oncology for outpatient biopsy. She has been coming in and out of the hospital with similar complaints. Due to her pain, her appetite was slightly depressed. Subjective: Patient seen and examined at bedside. No acute events overnight. She claims that her pain is remarkably improved. She still gets some pain in left upper quadrant with deep palpation. She denies any bowel or bladder issues. She still has poor appetite, but will try eating her breakfast. Pertinent positives and negatives as discussed above, a complete review of systems was performed and all other systems are negative. Vitals Signs Reviewed. General: nontoxic, no distress, appears at stated age Derm: warm, dry Head: atraumatic, normocephalic, symmetric Eyes: EOMI, no lid lag, anicteric sclera Mouth: no lip lesion, mucus membranes moist Cardiovascular: S1S2 reg, systolic murmur Lungs: CTA bilateral, no rhonchi, no rales , no accessory muscle use Abdominal: soft, nontender to palpation, no guarding, no appreciable organomegaly Ext: no gross muscle atrophy, no edema, no contractures Neuro: CN II-XI grossly intact, no focal neuro deficits Psych: Alert, oriented, appropriate affect Assessment and Plan: uncontrolled abd pain related to soft tissue growth on the chest/abd wall elevated BUN Poor appetite -Recent CT abdomen and pelvis on 08/16 - demonstrated interval enlarging bilateral chest wall soft tissue areas which was previously seen on PET scan. No definitive evidence for intra-abdominal lymphadenopathy or recurrent mass. -pain control with opiates -zofran for N/V -IVF hydration with normal saline, encourage oral intake -supportive care -continue to follow up with oncology for biopsy as OP. uncontrolled hypertension -resume atenolol , hydralazine chronic conditions afib s/p pacemaker on coumadin , atenolol , s/p pacemaker valvular heart disease DM, insulin sliding scale history of breast and colon cancer DVT ppx: Coumadin Code status: Full code Anticipated discharge place: Home Anticipated discharge time: Likely tomorrow Objective - Vital Signs Vital signs: Vital Signs Temp 97.8 F 08/25/22 13:16 Pulse 61 08/25/22 13:16 Resp 20 08/25/22 13:16 BP 158/53 08/25/22 13:16 Pulse Ox 98 08/25/22 13:16 FiO2 Intake & Output 08/24/22 08/25/22 08/25/22 18:59 06:59 18:59 Intake Total 591 Balance 591 Weight 77.111 kg 77.111 kg Intake: Oral 591 Other: # Voids 3 # Bowel Movements 1 - Labs CBC & Chem 7: 08/25/22 06:12 08/25/22 06:12 Labs: Abnormal Lab Results - Last 24 Hours (Table) 08/24/22 08/24/22 08/25/22 Range/Units 21:33 21:47 06:12 RBC 3.50 L (3.80-5.40) m/uL Hgb 11.3 L (11.4-16.0) gm/dL Hct 33.9 L (34.0-46.0) % Lymphocytes # 0.9 L (1.0-4.8) k/uL PT 21.2 H (9.0-12.0) sec INR 2.1 H (<1.2) Sodium (137-145) mmol/L BUN (7-17) mg/dL Glucose (74-99) mg/dL POC Glucose (mg/dL) 131 H (70-110) mg/dL Total Bilirubin (0.2-1.3) mg/dL 08/25/22 08/25/22 08/25/22 Range/Units 06:12 06:12 12:55 RBC (3.80-5.40) m/uL Hgb (11.4-16.0) gm/dL Hct (34.0-46.0) % Lymphocytes # (1.0-4.8) k/uL PT 21.7 H (9.0-12.0) sec INR 2.2 H (<1.2) Sodium 136 L (137-145) mmol/L BUN 47 H (7-17) mg/dL Glucose 101 H (74-99) mg/dL POC Glucose (mg/dL) 191 H (70-110) mg/dL Total Bilirubin 1.5 H (0.2-1.3) mg/dL 08/25/22 Range/Units 16:26 RBC (3.80-5.40) m/uL Hgb (11.4-16.0) gm/dL Hct (34.0-46.0) % Lymphocytes # (1.0-4.8) k/uL PT (9.0-12.0) sec INR (<1.2) Sodium (137-145) mmol/L BUN (7-17) mg/dL Glucose (74-99) mg/dL POC Glucose (mg/dL) 137 H (70-110) mg/dL Total Bilirubin (0.2-1.3) mg/dL
[2022-08-25] MEDS ORDERED: WARFARIN 2.5 MG TAB PO SCH (18:00)
[2022-08-25 21:46] LABS: Glucose,Whole Blood 119 mg/dL (70-110)
[2022-08-25] MEDS: ATORVASTATIN 20 MG TAB PO SCH (22:08)
[2022-08-26 06:38] LABS: INR 2.8 (<1.2); Prothrombin Time 27.9 sec (9.0-12.0)
[2022-08-26 08:47] LABS: Glucose,Whole Blood 144 mg/dL (70-110)
[2022-08-26] MEDS: INSULIN ASPART (NovoLOG) 100 UNIT/ML VIAL SQ SCH (08:58)
[2022-08-26] MEDS: SPIRONOLACTONE 25 MG TAB PO SCH (09:09)
[2022-08-26] MEDS: hydrALAZINE HCL 25 MG TAB PO SCH (09:09)
[2022-08-26] MEDS: atenoloL 25 MG TAB PO SCH (09:09)
[2022-08-26 09:34] VITALS: BP 152/66; PULSE 65; RESP 18; TEMP 97.6
--- NOTE | 2022-08-26 10:45 | P.DS ---
Providers Date of admission: 08/24/22 21:42 Expected date of discharge: 08/26/22 Attending physician: Benny Best MD Primary care physician: Home Gar[facility] Course: Discharge Diagnosis: Abdominal pain Soft tissue growth on chest/abdominal wall Elevated BUN Poor appetite Uncontrolled hypertension Atrial fibrillation History of breast and colon cancer Diabetes Hospital Course: 82-year-old female with history of atrial fibrillation status post pacemaker, on Coumadin, probably heart disease, invasive ductal cancer of the breast presented with acute on chronic abdominal pain. Her abdominal pain likely is in the setting of soft tissue growth on chest/abdomen wall. Her pain was not well controlled at home, which is why she presented to the hospital. She is supposed to follow up with oncology for outpatient biopsy. She has been coming in and out of the hospital with similar complaints. Due to her pain, her appetite was slightly depressed. Patient had a recent CT abdomen and pelvis on 08/16 each demonstrated interval enlarging bilateral chest wall soft tissue areas previously seen on PET scan. However, no definitive evidence of intra-abdominal lymphadenopathy or recurrent mass. Patient was able to tolerate oral intake prior to discharge. Her pain was controlled. She will be discharged on Tylenol 1000 mg TID PRN for pain. She has an outpatient biopsy coming up soon. She has had hypertension while in the hospital. Continue home medications at the moment, can titrate her hydralazine if needed as an outpatient. Patient seen and examined at bedside. Vital signs reviewed and stable. General: nontoxic, no distress, appears at stated age Derm: warm, dry Head: atraumatic, normocephalic, symmetric Eyes: EOMI, no lid lag, anicteric sclera Mouth: no lip lesion, mucus membranes moist Cardiovascular: S1S2 reg, systolic murmur Lungs: CTA bilateral, no rhonchi, no rales , no accessory muscle use Abdominal: soft, nontender to palpation, no guarding, no appreciable organomegaly Ext: no gross muscle atrophy, no edema, no contractures Neuro: CN II-XI grossly intact, no focal neuro deficits Psych: Alert, oriented, appropriate affect A total of 33 minutes of time were spent preparing this complex discharge summary. Patient was discharged on 08/26/22 at 7:29. Patient Condition at Discharge: Stable Plan - Discharge Summary Discharge Rx Participant: No New Discharge Prescriptions: New Acetaminophen Tab [Tylenol Tab] 1,000 mg PO TID PRN #60 tablet PRN Reason: Pain Scale 6 To 10 Continue Simvastatin [Zocor] 40 mg PO HS Furosemide [Lasix] 40 mg PO BID hydrALAZINE HCL [Apresoline] 25 mg PO BID #60 tab allopurinoL [Zyloprim] 100 mg PO DAILY calcitrioL [Rocaltrol] 0.25 mcg PO FR Spironolactone [Aldactone] 50 mg PO DAILY Warfarin [Coumadin] 2.5 mg PO SUTUTHSA Warfarin [Coumadin] 1.25 mg PO MOWEFR atenoloL [Tenormin] 25 mg PO BID Ferrous Sulfate [Iron (65 MG Elemental)] 325 mg PO BID Cholecalciferol [Vitamin D3 (25 Mcg = 1000 Iu)] 25 mcg PO DAILY Discharge Medication List Simvastatin [Zocor] 40 mg PO HS 03/18/17 [History] Furosemide [Lasix] 40 mg PO BID 06/03/18 [History] hydrALAZINE HCL [Apresoline] 25 mg PO BID #60 tab 06/16/18 [Rx] allopurinoL [Zyloprim] 100 mg PO DAILY 01/14/19 [History] calcitrioL [Rocaltrol] 0.25 mcg PO FR 01/14/19 [History] Spironolactone [Aldactone] 50 mg PO DAILY 01/24/19 [History] Warfarin [Coumadin] 1.25 mg PO MOWEFR 12/01/21 [History] atenoloL [Tenormin] 25 mg PO BID 02/12/22 [History] Cholecalciferol [Vitamin D3 (25 Mcg = 1000 Iu)] 25 mcg PO DAILY 03/27/22 [History] Ferrous Sulfate [Iron (65 MG Elemental)] 325 mg PO BID 03/27/22 [History] Warfarin [Coumadin] 2.5 mg PO SUTUTHSA 08/20/22 [History] Acetaminophen Tab [Tylenol Tab] 1,000 mg PO TID PRN #60 tablet 08/26/22 [Rx] Follow up Appointment(s)/Referral(s): Home Garza MD [Primary Care Provider] - 1-2 days (PLEASE CALL AND SCHEDULE APPOINTMENT.) Patient Instructions/Handouts: Abdominal Pain (GEN) Activity/Diet/Wound Care/Special Instructions: Please see your oncologist for biopsy. Discharge Disposition: HOME SELF-CARE
== END 2022-08-26 11:02 | disposition home or self-care (01) ==
LOC: EC 11:41 → 6NMEDSUR 21:42
PROVIDERS: ADMIT Internal Medicine; ATTEND Internal Medicine
DX: R10.9 Unspecified abdominal pain (principal); G89.29 Other chronic pain; R19.00 Intra-abdominal and pelvic swelling, mass and lump, unspecified site; E87.5 Hyperkalemia; R77.8 Other specified abnormalities of plasma proteins; R94.4 Abnormal results of kidney function studies; R63.0 Anorexia; I48.91 Unspecified atrial fibrillation; I11.0 Hypertensive heart disease with heart failure; I50.9 Heart failure, unspecified; M10.9 Gout, unspecified; E78.5 Hyperlipidemia, unspecified; E11.42 Type 2 diabetes mellitus with diabetic polyneuropathy; E11.621 Type 2 diabetes mellitus with foot ulcer; L97.509 Non-pressure chronic ulcer of other part of unspecified foot with unspecified severity; F41.9 Anxiety disorder, unspecified; Z85.038 Personal history of other malignant neoplasm of large intestine; Z79.899 Other long term (current) drug therapy; Z79.01 Long term (current) use of anticoagulants; Z91.041 Radiographic dye allergy status; Z85.3 Personal history of malignant neoplasm of breast; Z95.2 Presence of prosthetic heart valve; Z90.49 Acquired absence of other specified parts of digestive tract; Z90.710 Acquired absence of both cervix and uterus; Z95.0 Presence of cardiac pacemaker; Z96.1 Presence of intraocular lens; Z98.49 Cataract extraction status, unspecified eye; Z82.49 Family history of ischemic heart disease and other diseases of the circulatory system; Z81.8 Family history of other mental and behavioral disorders; Z85.9 Personal history of malignant neoplasm, unspecified; Z68.31 Body mass index [BMI] 31.0-31.9, adult
CPT/HCPCS: 96376 ×3; 96361 ×2; 96374; 96375; 99284; 36415; 80053 ×2; 84484 ×2; 85025 ×2; 85610 ×3; 81003; G0378 ×3; J2405 ×2; J1170 ×2

== ENCOUNTER 2022-09-03 08:25 | Day surgery (SDC) | payer MEDICARE, BC ==
[2022-09-03] MEDS ORDERED: ALPRAZolam 0.25 MG TAB PO PRN (08:50)
[2022-09-03 09:25] LABS: Platelet Count 200 k/uL (150-450)
[2022-09-03 10:28] VITALS: RESP 18; TEMP 97.8
[2022-09-03] MEDS ORDERED: HYDROcodone/APAP 5-325MG 1 EACH TAB PO STA (11:22)
[2022-09-03 12:28] VITALS: BP 147/76; PULSE 79
--- NOTE | 2022-09-03 12:59 | US ---
EXAMINATION TYPE: US biopsy soft tissue/muscle DATE OF EXAM: 09/03/2022 HISTORY: Abdominal mass. Correlation to PET CT 03/13/2022, CT 08/16/2022 FINDINGS: Maximal barrier technique was utilized. Hand hygiene achieved with soap and water and alco hol-based hand rub. The skin overlying a suitable path to the patient's mass in right upper quadrant along the abdominal wall was localized with ultrasound and the overlying skin prepped and draped. Ul trasound was utilized with sterile technique. Lidocaine was used for local anesthesia. A skin ghassan was made with a scalpel. An 18-gauge needle was advanced under direct ultrasound guidance and core s pecimen obtained of the mass. Specimen submitted in formalin to Pathology. Following the procedure, hemostasis achieved and the patient is discharged in stable condition without complication. IMPRESSION:STATUS POST ULTRASOUND GUIDED CORE BIOPSY OF right upper quadrant abdominal wall MASS, MARCO A CALLAHAN IS PENDING. THIS PROCEDURE IS PERFORMED BY THE UNDERSIGNED.
== END 2022-09-03 12:10 | disposition home or self-care (01) ==
LOC: RADPROMAIN 08:25
PROVIDERS: ATTEND Internal Medicine Hematology & Oncology
DX: R19.00 Intra-abdominal and pelvic swelling, mass and lump, unspecified site (principal); C50.919 Malignant neoplasm of unspecified site of unspecified female breast; Z85.038 Personal history of other malignant neoplasm of large intestine
CPT/HCPCS: 20206; 36415; 76942; 82947; 85049; 85610; 88307; 88341; 88342

== ENCOUNTER → 2022-09-29 | Day surgery (SDC) | payer MEDICARE, BC ==
[~2022-09-29] MED LIST changes: +BUPIVACAIN-EPI 0.25%-1:200,000 30 ML VIAL SQ ONE; +DEXAMETHASONE SOD PHOSPHATE 4 MG/ML 1 ML VIAL IV ONE; +HEPARIN SODIUM,PORCINE 100 UNIT/ML 5 ML VIAL IV ONE; +HEPARIN SODIUM,PORCINE/PF 5,000 UNIT/0.5 ML SYRINGE SQ ONE; +HYDROmorphone 0.5 MG/0.5 ML SYRINGE IVP PRN; +MIDAZOLAM 2 MG/2 ML VIAL IV PRN; +MIDAZOLAM 2 MG/2 ML VIAL ONE; +ONDANSETRON 4 MG/2 ML VIAL IVP ONE; +SODIUM CHLORIDE 0.9% 50 ML with ceFAZolin 2,000 MG IV ONE; +fentaNYL (PF) 50 MCG/ML 2 ML AMP ONE
--- NOTE | 2022-09-29 11:39 | P.GSHP ---
History of Present Illness H&P Date: 09/29/22 Chief Complaint: Metastatic colorectal cancer This is a 2-year-old female who had a recent biopsy abdominal wall mass. Patient underwent have metastatic colon cancer. Patient presents today for Port-A-Cath insertion. Past Medical History Past Medical History: Atrial Fibrillation, Cancer, Heart Failure, Diabetes Mellitus, GERD/Reflux, Hyperlipidemia, Hypertension Additional Past Medical History / Comment(s): Neuropathy feet., hx Rheumatic fever., gout , hx colon CA with resection., hx breast cancer., hx of diabetic toe ulcers., states received covid vaccine x2 doses and had a problem with her heart and not able to take anymore covid vaccines., Pacemaker., states diarrhea & constipation, states having right abdominal pain, no longer on any medications for diabetes History of Any Multi-Drug Resistant Organisms: None Reported Past Surgical History: Appendectomy, Bowel Resection, Cardiac Valve Replacement, Cholecystectomy, Hysterectomy, Pacemaker Additional Past Surgical History / Comment(s): 1994 mitral and aortic mechanical valves placed. Pacemakers-generator change 11/28/21., Colonoscopy. Debridements bilateral great toe diabetic ulcers. , cataracts with lens implants Past Anesthesia/Blood Transfusion Reactions: No Reported Reaction Additional Past Anesthesia/Blood Transfusion Reaction / Comment(s): blood transfusions no issues. Type of Cardiac Device: Permanent Pacemaker Device Placement Date:: Pt cannot recall date of last pacer insertion but generator changed 2021 Smoking Status: Never smoker - Past Family History Brother(s) Additional Family Medical History / Comment(s): brothers had " heart problems" Father History Unknown: Yes Family Medical History: No Reported History Additional Family Medical History / Comment(s): Father committed suicide in his 50s.drinker Mother History Unknown: Yes Family Medical History: No Reported History Additional Family Medical History / Comment(s): Mother was healthy and lived to be 92 yrs old. Daughter(s) Family Medical History: Cancer Additional Family Medical History / Comment(s): breast cancer Medications and Allergies Home Medications Medication Instructions Recorded Confirmed Type Simvastatin [Zocor] 40 mg PO HS 03/18/17 09/28/22 History Furosemide [Lasix] 40 mg PO BID 06/03/18 09/28/22 History hydrALAZINE HCL [Apresoline] 25 mg PO BID #60 tab 06/16/18 09/28/22 Rx allopurinoL [Zyloprim] 100 mg PO DAILY 01/14/19 09/28/22 History calcitrioL [Rocaltrol] 0.25 mcg PO FR 01/14/19 09/28/22 History Spironolactone [Aldactone] 50 mg PO DAILY 01/24/19 09/28/22 History Warfarin [Coumadin] 1.25 mg PO MOWEFR 12/01/21 09/28/22 History atenoloL [Tenormin] 25 mg PO BID 02/12/22 09/28/22 History Cholecalciferol [Vitamin D3 (25 25 mcg PO DAILY 03/27/22 09/28/22 History Mcg = 1000 Iu)] Ferrous Sulfate [Iron (65 MG 325 mg PO BID 03/27/22 09/28/22 History Elemental)] Warfarin [Coumadin] 2.5 mg PO SUTUTHSA 08/20/22 09/28/22 History Acetaminophen Tab [Tylenol Tab] 1,000 mg PO TID PRN #60 tablet 08/26/22 09/28/22 Rx Acetaminophen with Codeine 1 tab PO HS 09/28/22 09/28/22 History [Tylenol w/Codeine #2 Tablet] Enoxaparin [Lovenox] 60 mg SQ Q12H 09/28/22 09/28/22 History Allergies Allergy/AdvReac Type Severity Reaction Status Date / Time Iodinated Contrast Media Allergy Anaphylaxis Verified 09/28/22 08:57 [Iodinated Contrast Media - IV Dye] Surgical - Exam - General well developed, well nourished, no distress - Eyes PERRL - ENT normal pinna - Neck no masses - Respiratory normal expansion - Cardiovascular Rhythm: regular - Abdomen Abdomen: soft, non tender Assessment and Plan Assessment: Anesthetic: Rectal cancer. We'll perform Port-A-Cath placement
[2022-09-29 12:25] VITALS: RESP 16
[2022-09-29 13:03] LABS: INR 1.4 (<1.2); Partial Thromboplastin Time 28.7 sec (22.0-30.0); Prothrombin Time 14.4 sec (9.0-12.0)
--- NOTE | 2022-09-29 13:10 | P.OP ---
Date of Procedure: 09/29/22 Preoperative Diagnosis: Metastatic colorectal cancer Postoperative Diagnosis: Metastatic colorectal cancer Procedure(s) Performed: Insertion of right subclavian Mediport Anesthesia: MAC Surgeon: Felipe Ken Estimated Blood Loss (ml): 5 Pathology: none sent Condition: stable Disposition: PACU Description of Procedure: The patient was placed on the operating table in the supine position. The patient received IV sedation. The patient's chest was prepped and draped in the usual sterile fashion. A roll had been placed between the shoulder blades in a longitudinal fashion. After prepping and draping the skin was anesthetized 1% local Xylocaine. And then using the Seldinger technique the subclavian vein was cannulated. A wire was placed into the vein and fluoroscopy position the wire at the atrial caval junction. Next the dilator sheath was placed over top the wire and the wire was withdrawn. The catheter was positioned at the atriocaval position. The catheter was placed through the sheath after the dilator was withdrawn. The sheath was then withdrawn. Position of the catheter was confirmed with fluoroscopy. The Port-A-Cath was connected to the catheter. The Port-A-Cath was flushed with saline and then heparinized saline. The skin was closed interrupted 3-0 Monocryl suture. Dermabond was applied. Patient tolerated procedure well and was sent to recovery room stable condition.
[2022-09-29 13:17] VITALS: TEMP 96.9
--- NOTE | 2022-09-29 13:33 | XR ---
EXAMINATION TYPE: XR chest 1V portable DATE OF EXAM: 09/29/2022 COMPARISON: Chest x-ray December 01, 2021 HISTORY: Mediport catheter insertion. TECHNIQUE: Single AP portable frontal upright view of the chest is obtained. FINDINGS: Marked cardiomegaly with single lead pacemaker redemonstrated. Overlying sternal wires and mediastinal clips again seen. New Right subclavian Mediport catheter terminates in presumed dilated right atrium. Chronic parenchymal changes bilaterally without pneumothorax seen . Scoliotic curvatur e centered in the lumbar spine is partially imaged. IMPRESSION: As above.
--- NOTE | 2022-09-29 13:44 | FL ---
EXAMINATION TYPE: FL guided central line placemt DATE OF EXAM: 09/29/2022 CLINICAL HISTORY: Port-A-Cath insertion. TECHNIQUE: Fluoroscopy. COMPARISON: None. FINDINGS: Fluoroscopic guidance was provided during right subclavian Port-A-Cath insertion procedure performed by Dr. Ken. A total of 11.4 seconds of fluoroscopic time was utilized during the pro cedure and 1 spot images was acquired. Single intraoperative image acquired shows portion of right si ded Mediport catheter terminating near cavoatrial junction. Marked cardiomegaly is noted. IMPRESSION: As Above.
[2022-09-29 14:38] VITALS: BP 157/72; PULSE 60
== END | disposition home or self-care (01) ==
LOC: OR 11:54
PROVIDERS: ATTEND Surgery
DX: C18.2 Malignant neoplasm of ascending colon (principal); I11.0 Hypertensive heart disease with heart failure; I50.9 Heart failure, unspecified; E78.5 Hyperlipidemia, unspecified; I48.91 Unspecified atrial fibrillation; E11.9 Type 2 diabetes mellitus without complications; K21.9 Gastro-esophageal reflux disease without esophagitis
CPT/HCPCS: 85610; 85730; 77001; 71045; 36561; C1788; J2250; J1642; J1100; J2405; J0690; J3010

== ENCOUNTER → 2022-11-23 | Outpatient (CLI) | payer MEDICARE, BC ==
--- NOTE | 2022-11-23 14:07 | MM ---
Reason for Exam: Clinical finding. Last mammogram was performed 1 year(s) and 1 month(s) ago. Patient History: Menarche at age 12. First Full-Term at age 15. Left ovary removed at age 36. Right ovary removed at age 36. Hysterectomy at age 36. Postmenopausal. Breast cancer, left, age 79. Other cancer. Estrogen for 34 years from age 36 until age 69. Hormonal Contraceptives for 10 years until age 27. 2019, Lumpectomy on the Left side. 07/25/2019, Malignant Core Biopsy on the left side. 03/15/2008, Benign Cyst Aspiration on the right side. 2019, Radiation Therapy on the left side. 2019, Chemotherapy. Daughter had breast cancer, age 40. Prior Study Comparison: 02/13/2008 Bilateral Screening Mammogram, [facility]. 02/16/2008 Right Diagnostic Mammogram, [facility]. 02/16/2008 Right Diagnostic Ultrasound, [facility]. 09/06/2008 Right Diagnostic Mammogram, [facility]. 02/05/2009 Bilateral Diagnostic Mammogram, [facility]. 02/05/2009 Right Diagnostic Ultrasound, [facility]. 08/09/2009 Right Diagnostic Mammogram, [facility]. 08/09/2009 Right Diagnostic Ultrasound, [facility]. 02/18/2010 Bilateral Diagnostic Mammogram, [facility]. 02/19/2011 Bilateral Screening Mammogram, [facility]. 04/26/2012 Bilateral Screening Mammogram, [facility]. 04/27/2013 Bilateral Screening Mammogram, [facility]. 05/02/2014 Bilateral Screening Mammogram, [facility] 06/12/2015 Bilateral Screening Mammogram, [facility]. 06/22/2016 Bilateral Screening Mammogram, [facility]. 06/24/2016 Right Diagnostic Mammogram, [facility]. 06/24/2016 Right Diagnostic Ultrasound, [facility]. 01/04/2017 Right Diagnostic Ultrasound, [facility]. 07/23/2017 Bilateral Screening Mammogram, [facility]. 06/19/2019 Bilateral Diagnostic Mammogram, [facility]. 06/19/2019 Left Diagnostic Ultrasound, [facility]. 07/25/2019 Left Diagnostic Mammogram, [facility]. 09/25/2020 Bilateral Diagnostic Mammogram, [facility] 04/04/2021 Left Diagnostic Mammogram, [facility]. 10/23/2021 Bilateral Diagnostic Mammogram, [facility]. Tissue Density: There are scattered fibroglandular densities. Findings: Analyzed By CAD. Left axillary pacemaker device is partially imaged. Current study shows portion of the Mediport catheter in the right axilla. Benign-appearing round, linear, and vascular calcifications bilaterally are redemonstrated. Small circumscribed round 5 mm mass in the posterior outer upper aspect right breast is unchanged from several prior mammograms. Diminished size to the left breast system with posttreatment changes redemonstrated similar in appearance to prior mammograms. No suspicious new mass or distortion. Overall Assessment: Benign, BI-RAD 2 Management: Diagnostic Mammogram of both breasts in 1 year. A clinical breast exam by your physician is recommended on an annual basis and results should be correlated with mammographic findings. This exam should not preclude additional follow-up of suspicious palpable abnormalities. Results were given to the patient verbally at the time of exam. Electronically signed and approved by: Natalio Pagan M.D.
== END | disposition home or self-care (01) ==
LOC: RADMAMWWP 13:35
PROVIDERS: ATTEND Family Medicine
DX: R92.8 Other abnormal and inconclusive findings on diagnostic imaging of breast (principal); Z78.0 Asymptomatic menopausal state; Z80.3 Family history of malignant neoplasm of breast
CPT/HCPCS: 77066; G0279; 77062

== ENCOUNTER → 2022-11-24 | Outpatient (CLI) | payer MEDICARE, BC ==
--- NOTE | 2022-11-24 19:34 | CT ---
EXAMINATION TYPE: CT abdomen w con CT DLP: 549.0 mGycm, Automated exposure control for dose reduction was used. DATE OF EXAM: 11/24/2022 5:53 PM COMPARISON: CT abdomen pelvis most recent from 08/16/2022 CLINICAL INDICATION:Female, 82 years old with history of C18.2 MALIGNANT NEOPLASM OF ASCENDING COLON; Malignant neoplasm of ascending colon TECHNIQUE: Axial CT of the abdomen and pelvis. Sagittal and coronal reformats were created on a [employer] workstation. Contrast used:80cc mL of Isovue 300 with IV Contrast, Oral contrast used: with Oral Contrast FINDINGS: LOWER CHEST: Heart is enlarged for size including both atria's. There is cardiac conduction device le ads terminating in right ventricle and right atrium. Mitral valve annular calcifications are present. Aortic valve consultations are present. Coronary artery atherosclerosis is present. ABDOMEN LIVER: Scattered hepatic hyper attenuating lesions are seen throughout the liver which appear stable dating back to at least 08/15/2020. These are not FDG avid on prior PET. GALLBLADDER AND BILE DUCTS: The gallbladder surgically absent. PANCREAS: Unremarkable. SPLEEN: r there is low density 4.5 x 3.2 cm lesion within the spleen measuring 4.5 x 3.2 cm previousl y measuring 4.0 x 2.6 cm which is more conspicuous on today's exam given IV contrast. Previously liana uring 4.0 x 2.6 cm. This is not FDG avid on prior PET/CT. ADRENAL GLANDS: Unremarkable. KIDNEYS AND URETERS: No evidence of hydronephrosis or renal calculus. Bilateral renal cysts PELVIS BLADDER: Unremarkable REPRODUCTIVE: Unremarkable. ABDOMEN & PELVIS equal and working on trying to finish 41 STOMACH AND BOWEL: No evidence of bowel obstruction. Scattered clonic diverticula present. Postsurgic al changes to the bowel. PERITONEUM: No evidence of pneumoperitoneum or free fluid. VASCULATURE: No evidence of aortic aneurysm. Atherosclerosis of the arterial vasculature. MUSCULOSKELETAL: No acute osseous abnormalities, mild multilevel disc degeneration changes and facet joint arthropathy. LYMPH NODES: No gross evidence for lymphadenopathy. SOFT TISSUE/ABDOMINAL WALL: Abdominal wall soft tissue which is FDG avid on prior is redemonstrated o n the right measuringr up to 6.5 x 5.2, previously 5.3 x 3.6 and on the left measuring 4.3 x 3.3 cm c entimeters, previously 3.4 x 2.5 cm. IMPRESSION: 1. Redemonstration of bilateral abdominal wall soft tissue areas which were mildly FDG avid lesions on prior PET 03/13/2022. These continue to growing size most recently increased from 08/16/2022. 2. No evidence for intra-abdominal soft tissue mass to suggest recurrence or evidence for intra-abdo jose lymphadenopathy. 3. Hepatic and splenic cysts. 4. Marked cardiomegaly. 5. Colonic diverticulosis.
== END | disposition home or self-care (01) ==
LOC: RADCTMAIN 15:57
PROVIDERS: ATTEND Internal Medicine Hematology & Oncology
DX: C18.2 Malignant neoplasm of ascending colon (principal); D73.4 Cyst of spleen; I51.7 Cardiomegaly; K57.30 Diverticulosis of large intestine without perforation or abscess without bleeding; K76.89 Other specified diseases of liver
CPT/HCPCS: 82565; 84520; 74160; 36415; Q9967

== ENCOUNTER 2022-12-06 21:38 | Inpatient (IN) | payer MEDICARE, BC ==
[2022-12-06] MEDS ORDERED: ONDANSETRON ODT 4 MG TAB PO STA (22:09)
[2022-12-06] MEDS ORDERED: HYDROcodone/APAP 7.5-325MG 1 EACH TAB PO ONE (22:09)
--- NOTE | 2022-12-06 22:29 | ED ---
Abdominal Pain HPI - General Chief Complaint: Abdominal Pain Stated Complaint: Abdominal Pain Time Seen by Provider: 12/06/22 21:45 Source: patient, RN notes reviewed Mode of arrival: ambulatory Limitations: no limitations - History of Present Illness Initial Comments: This is an 82-year-old female who presents to the emergency department for abdominal pain. Patient is currently being treated for metastatic adenocarcinoma. On 09/03, she had a biopsy of a mass in her abdomen. This revealed metastatic adenocarcinoma consistent with colorectal primary. States that she continues to have progressive abdominal pain. She takes Tylenol #3 at home for her symptoms, however she states that this is not adequate. She is a patient of Dr. Barajas, hem/onc. Additionally, her daughter states that she is refusing to eat and is unable to sleep due to the pain and associated anxiety. Denies any fevers, chills, sore throat, cough, dyspnea, chest pain, palpitations, vomiting, diarrhea, back pain, or headaches. MD Complaint: abdominal pain - Related Data Home Medications Medication Instructions Recorded Confirmed Simvastatin [Zocor] 40 mg PO HS 03/18/17 09/28/22 Furosemide [Lasix] 40 mg PO BID 06/03/18 09/28/22 allopurinoL [Zyloprim] 100 mg PO DAILY 01/14/19 09/28/22 calcitrioL [Rocaltrol] 0.25 mcg PO FR 01/14/19 09/28/22 Spironolactone [Aldactone] 50 mg PO DAILY 01/24/19 09/28/22 Warfarin [Coumadin] 1.25 mg PO MOWEFR 12/01/21 09/28/22 atenoloL [Tenormin] 25 mg PO BID 02/12/22 09/29/22 Cholecalciferol [Vitamin D3 (25 25 mcg PO DAILY 03/27/22 09/28/22 Mcg = 1000 Iu)] Ferrous Sulfate [Iron (65 MG 325 mg PO BID 03/27/22 09/28/22 Elemental)] Warfarin [Coumadin] 2.5 mg PO SUTUTHSA 08/20/22 09/28/22 Acetaminophen with Codeine 1 tab PO HS 09/28/22 09/28/22 [Tylenol w/Codeine #2 Tablet] Enoxaparin [Lovenox] 60 mg SQ Q12H 09/28/22 09/28/22 Previous Rx's Medication Instructions Recorded hydrALAZINE HCL [Apresoline] 25 mg PO BID #60 tab 06/16/18 Acetaminophen Tab [Tylenol Tab] 1,000 mg PO TID PRN #60 tablet 08/26/22 Acetaminophen Tab [Tylenol] 650 mg PO Q6H #30 tab 09/29/22 Ibuprofen [Motrin] 600 mg PO Q6HR PRN #40 tab 09/29/22 Allergies Allergy/AdvReac Type Severity Reaction Status Date / Time Iodinated Contrast Media Allergy Anaphylaxis Verified 12/06/22 21:43 [Iodinated Contrast Media - IV Dye] Review of Systems ROS Statement: Those systems with pertinent positive or pertinent negative responses have been documented in the HPI. ROS Other: All systems not noted in ROS Statement are negative. Past Medical History Past Medical History: Atrial Fibrillation, Cancer, Heart Failure, Diabetes Mellitus, GERD/Reflux, Hyperlipidemia, Hypertension Additional Past Medical History / Comment(s): Neuropathy feet., hx Rheumatic fever., gout , hx colon CA with resection., hx breast cancer., hx of diabetic toe ulcers., states received covid vaccine x2 doses and had a problem with her heart and not able to take anymore covid vaccines., Pacemaker., states diarrhea & constipation, states having right abdominal pain, no longer on any medications for diabetes History of Any Multi-Drug Resistant Organisms: None Reported Past Surgical History: Appendectomy, Bowel Resection, Cardiac Valve Replacement, Cholecystectomy, Hysterectomy, Pacemaker Additional Past Surgical History / Comment(s): 1994 mitral and aortic mechanical valves placed. Pacemakers-generator change 11/28/21., Colonoscopy. Debridements bilateral great toe diabetic ulcers. , cataracts with lens implants Past Anesthesia/Blood Transfusion Reactions: No Reported Reaction Additional Past Anesthesia/Blood Transfusion Reaction / Comment(s): blood transfusions no issues. Type of Cardiac Device: Permanent Pacemaker Device Placement Date:: Pt cannot recall date of last pacer insertion but generator changed 2021 Past Psychological History: Anxiety Smoking Status: Never smoker - Past Family History Brother(s) Additional Family Medical History / Comment(s): brothers had " heart problems" Father History Unknown: Yes Family Medical History: No Reported History Additional Family Medical History / Comment(s): Father committed suicide in his 50s.drinker Mother History Unknown: Yes Family Medical History: No Reported History Additional Family Medical History / Comment(s): Mother was healthy and lived to be 92 yrs old. Daughter(s) Family Medical History: Cancer Additional Family Medical History / Comment(s): breast cancer General Exam Limitations: no limitations General appearance: alert, in no apparent distress Head exam: Present: atraumatic, normocephalic, normal inspection Respiratory exam: Present: normal lung sounds bilaterally. Absent: respiratory distress, wheezes, rales, rhonchi, stridor Cardiovascular Exam: Present: regular rate, normal rhythm, normal heart sounds. Absent: systolic murmur, diastolic murmur, rubs, gallop, clicks GI/Abdominal exam: Present: tenderness (left mid abdomen), normal bowel sounds, mass Neurological exam: Present: alert, oriented X3, CN II-XII intact Psychiatric exam: Present: normal affect, normal mood Skin exam: Present: warm, dry, intact, normal color. Absent: rash Course Vital Signs 12/06/22 12/07/22 21:39 01:42 Temperature 97.4 F L Pulse Rate 71 60 Respiratory 16 16 Rate Blood Pressure 154/71 150/65 O2 Sat by Pulse 98 94 L Oximetry Medical Decision Making - Medical Decision Making This is an 82-year-old female who presents to the emergency department for abdominal pain. Was pt. sent in by a medical professional or institution? @ -No Did you speak to anyone other than the patient for history? @ -Her daughter Did you review nursing and triage notes? @ -Yes, and I agree, it is accurate with regards to the patient's symptoms. Were old charts reviewed? @ -Yes, CT scan of the abdomen from 11/24/22 revealing enlarging abdominal wall masses. Differential Diagnosis? @ -Differential Abdominal Pain Women: Appendicitis, Cholecystitis, diverticulosis, ischemic bowel, pancreatitis, hepatitis, UTI, gastroenteritis, AAA, incarcerated hernia, bowel obstruction, constipation, inflammatory bowel, hepatitis, peptic ulcer disease, splenic infarction, perforated viscus, vulvitis, ovarian torsion, PID, kidney stone, placenta abruption, this is not meant to be an all-inclusive list What testing was considered but not performed? (CT, X-rays, U/S, labs)? Why? @ -None What meds were considered but not given? Why? @ -None Did you discuss the management of the patient with other professionals? @ -Yes, Dr. Best who accepts the patient for admission. Did you reconcile home meds? @ -No Was smoking cessation discussed for >3mins.? @ -No Was critical care preformed (if so, how long)? @ -No Were there social determinants of health that impacted care today? How? (Homelessness, low income, unemployed, alcoholism, drug addiction, transportation, low edu. Level, literacy, decrease access to med. care, half-way, rehab)? @ -No Was there de-escalation of care discussed even if they declined? (Discuss DNR or withdrawal of care, Hospice)? @ -No What co-morbidities impacted this encounter? (DM, HTN, Smoking, COPD, CAD, Cancer, CVA, Hep., AIDS, mental health diagnosis, sleep apnea, morbid obesity)? @ -Adenocarcinoma, DM, HLD, HTN, CHF. Was patient admitted / discharged? @ -We initially tried oral Adolphus, 7.5 mg. Patient states that this did not improve her pain whatsoever and she was still in significant distress on examination. Patient requested IV medication due to her level of distress and not wanting to wait for an oral medication to begin working. She was given morphine which controlled symptoms very well. Discussed with the patient discharge home with stronger pain medication versus admission for pain management. Patient requests admission for pain management due to lack of improvement with oral medications. Patient admitted to medicine for pain management with hem/onc placed as a consult for the metastatic adenocarcinoma. Undiagnosed new problem with uncertain prognosis? @ -None Drug Therapy requiring intensive monitoring for toxicity (Heparin, Nitro, Insulin, Cardizem)? @ -None Were any procedures done? @ -None Diagnosis/symptom? @ -Abdominal pain Acute, or Chronic, or Acute on Chronic? @ -Acute on chronic Uncomplicated (without systemic symptoms) or Complicated (systemic symptoms)? @ -Complicated Side effects of treatment? @ -None Exacerbation, Progression, or Severe Exacerbation] @ -Progression Poses a threat to life or bodily function? @ -Yes, the pain is having a large impact on her ability to function. This case was discussed in detail with the attending ED physician, Dr. Damico. Presentation, findings, and treatment plan discussed in detail as well. - Lab Data Result diagrams: 12/07/22 00:05 12/07/22 00:05 Lab Results 12/07/22 12/07/22 Range/Units 00:05 00:05 WBC 7.7 (3.8-10.6) k/uL RBC 3.22 L (3.80-5.40) m/uL Hgb 9.8 L (11.4-16.0) gm/dL Hct 29.6 L (34.0-46.0) % MCV 91.9 (80.0-100.0) fL MCH 30.4 (25.0-35.0) pg MCHC 33.1 (31.0-37.0) g/dL RDW 14.6 (11.5-15.5) % Plt Count 206 (150-450) k/uL MPV 7.7 Neutrophils % 84 % Lymphocytes % 8 % Monocytes % 5 % Eosinophils % 1 % Basophils % 0 % Neutrophils # 6.5 (1.3-7.7) k/uL Lymphocytes # 0.6 L (1.0-4.8) k/uL Monocytes # 0.4 (0-1.0) k/uL Eosinophils # 0.1 (0-0.7) k/uL Basophils # 0.0 (0-0.2) k/uL Sodium 134 L (137-145) mmol/L Potassium 3.6 (3.5-5.1) mmol/L Chloride 100 (98-107) mmol/L Carbon Dioxide 27 (22-30) mmol/L Anion Gap 7 mmol/L BUN 29 H (7-17) mg/dL Creatinine 0.75 (0.52-1.04) mg/dL Est GFR (CKD-EPI)AfAm 85 (>60 ml/min/1.73 sqM) Est GFR (CKD-EPI)NonAf 74 (>60 ml/min/1.73 sqM) Glucose 107 H (74-99) mg/dL Calcium 8.8 (8.4-10.2) mg/dL Total Bilirubin 1.2 (0.2-1.3) mg/dL AST 30 (14-36) U/L ALT 19 (4-34) U/L Alkaline Phosphatase 71 (38-126) U/L Total Protein 5.9 L (6.3-8.2) g/dL Albumin 3.7 (3.5-5.0) g/dL Disposition Clinical Impression: Metastatic adenocarcinoma, Uncontrolled pain Disposition: ADMITTED IP TO THIS HOSP
[2022-12-06] MEDS ORDERED: MORPHINE SULFATE 2 MG/ML SYRINGE IVP STA (23:09)
[2022-12-06] MEDS ORDERED: KETOROLAC 15 MG/ML 1 ML VIAL IVP STA (23:10)
[2022-12-07] MEDS ORDERED: HYDROmorphone 0.5 MG/0.5 ML SYRINGE IVP STA (00:15)
[2022-12-07 00:18] LABS: Basophils % (A) 0 %; Eosinophils # (A) 0.1 k/uL (0-0.7); Eosinophils % (A) 1 %; HCT 29.6 % (34.0-46.0); HGB 9.8 gm/dL (11.4-16.0); Lymphocytes # (A) 0.6 k/uL (1.0-4.8); Lymphocytes % (A) 8 %; MCH 30.4 pg (25.0-35.0); MCHC 33.1 g/dL (31.0-37.0); MCV 91.9 fL (80.0-100.0); Mean Platelet Volume 7.7; Monocytes # (A) 0.4 k/uL (0-1.0); Monocytes % (A) 5 %; Neutrophils # (A) 6.5 k/uL (1.3-7.7); Neutrophils % (A) 84 %; Platelet Count 206 k/uL (150-450); RBC 3.22 m/uL (3.80-5.40); RDW 14.6 % (11.5-15.5); WBC 7.7 k/uL (3.8-10.6)
[2022-12-07 00:46] LABS: Albumin 3.7 g/dL (3.5-5.0); Calcium 8.8 mg/dL (8.4-10.2); Potassium 3.6 mmol/L (3.5-5.1); Total Bilirubin 1.2 mg/dL (0.2-1.3); Total Protein 5.9 g/dL (6.3-8.2)
[2022-12-07] MEDS ORDERED: IBUPROFEN 400 MG TAB PO PRN (01:21)
[2022-12-07] MEDS ORDERED: HYDROmorphone 0.5 MG/0.5 ML SYRINGE IVP PRN (01:21)
[2022-12-07] MEDS ORDERED: NALOXONE 0.4 MG/ML 1 ML VIAL IV PRN (01:21)
[2022-12-07] MEDS ORDERED: HYDROmorphone 1 MG/ML 1 ML SYRINGE IVP PRN (01:21)
--- NOTE | 2022-12-07 03:09 | P.HPIM ---
History of Present Illness H&P Date: 12/07/22 Chief Complaint: intractable abd pain 82 year old female with history of invasive ductal caracinoma of the breast and metastatic adenocarcinoma of the colon patient is coming in due to intractable abd pain not controlled with home pain regimen , she reports feeling nauseated but no vomiting, she also reports constipation with episodes of diarrhea when she takes prune juice. she denies GI bleeding. he pain is mainly over LUQ and RUQ where she has metastatic abd wall masses. she denies any fever, chills, cough , chest pain or trouble breathing. she denies any urinary changes. blood work showed anemia Review of Systems Pertinent positives as noted in HPI. All other systems were reviewed and are negative Past Medical History Past Medical History: Atrial Fibrillation, Cancer, Heart Failure, Diabetes Mellitus, GERD/Reflux, Hyperlipidemia, Hypertension Additional Past Medical History / Comment(s): Neuropathy feet., hx Rheumatic fever., gout , hx colon CA with resection., hx breast cancer., hx of diabetic toe ulcers., states received covid vaccine x2 doses and had a problem with her heart and not able to take anymore covid vaccines., Pacemaker., states diarrhea & constipation, states having right abdominal pain, no longer on any medications for diabetes History of Any Multi-Drug Resistant Organisms: None Reported Past Surgical History: Appendectomy, Bowel Resection, Cardiac Valve Replacement, Cholecystectomy, Hysterectomy, Pacemaker Additional Past Surgical History / Comment(s): 1994 mitral and aortic mechanical valves placed. Pacemakers-generator change 11/28/21., Colonoscopy. Debridements bilateral great toe diabetic ulcers. , cataracts with lens implants Past Anesthesia/Blood Transfusion Reactions: No Reported Reaction Additional Past Anesthesia/Blood Transfusion Reaction / Comment(s): blood transfusions no issues. Type of Cardiac Device: Permanent Pacemaker Device Placement Date:: Pt cannot recall date of last pacer insertion but generator changed 2021 Past Psychological History: Anxiety Smoking Status: Never smoker - Past Family History Brother(s) Additional Family Medical History / Comment(s): brothers had " heart problems" Father History Unknown: Yes Family Medical History: No Reported History Additional Family Medical History / Comment(s): Father committed suicide in his 50s.drinker Mother History Unknown: Yes Family Medical History: No Reported History Additional Family Medical History / Comment(s): Mother was healthy and lived to be 92 yrs old. Daughter(s) Family Medical History: Cancer Additional Family Medical History / Comment(s): breast cancer Medications and Allergies Home Medications Medication Instructions Recorded Confirmed Type Simvastatin [Zocor] 40 mg PO HS 03/18/17 09/28/22 History Furosemide [Lasix] 40 mg PO BID 06/03/18 09/28/22 History hydrALAZINE HCL [Apresoline] 25 mg PO BID #60 tab 06/16/18 09/28/22 Rx allopurinoL [Zyloprim] 100 mg PO DAILY 01/14/19 09/28/22 History calcitrioL [Rocaltrol] 0.25 mcg PO FR 01/14/19 09/28/22 History Spironolactone [Aldactone] 50 mg PO DAILY 01/24/19 09/28/22 History Warfarin [Coumadin] 1.25 mg PO MOWEFR 12/01/21 09/28/22 History atenoloL [Tenormin] 25 mg PO BID 02/12/22 09/29/22 History Cholecalciferol [Vitamin D3 (25 25 mcg PO DAILY 03/27/22 09/28/22 History Mcg = 1000 Iu)] Ferrous Sulfate [Iron (65 MG 325 mg PO BID 03/27/22 09/28/22 History Elemental)] Warfarin [Coumadin] 2.5 mg PO SUTUTHSA 08/20/22 09/28/22 History Acetaminophen Tab [Tylenol Tab] 1,000 mg PO TID PRN #60 tablet 08/26/22 09/29/22 Rx Acetaminophen with Codeine 1 tab PO HS 09/28/22 09/28/22 History [Tylenol w/Codeine #2 Tablet] Enoxaparin [Lovenox] 60 mg SQ Q12H 09/28/22 09/28/22 History Acetaminophen Tab [Tylenol] 650 mg PO Q6H #30 tab 09/29/22 Rx Ibuprofen [Motrin] 600 mg PO Q6HR PRN #40 tab 09/29/22 Rx Allergies Allergy/AdvReac Type Severity Reaction Status Date / Time Iodinated Contrast Media Allergy Anaphylaxis Verified 12/06/22 21:43 [Iodinated Contrast Media - IV Dye] Physical Exam Vitals: Vital Signs Temp Pulse Resp BP Pulse Ox 12/07/22 01:42 60 16 150/65 94 L 12/06/22 21:39 97.4 F L 71 16 154/71 98 Intake and Output 12/06/22 12/06/22 12/07/22 14:59 22:59 06:59 Other: Weight 63.503 kg Constitutional: No acute distress, conversant, pleasant Eyes: Anicteric sclerae, moist conjunctiva, Pupils equal round reactive to light ENMT: NC/AT Oropharynx clear, no erythema, or exudates Neck: Supple, no masses, or JVD No carotid bruits No thyromegaly Lungs: Clear to auscultation Clear to percussion Normal respiratory effort, no accessory muscle use Cardiovascular: Heart regular in rate and rhythm, No murmurs, gallops, or rubs No peripheral edema Abdominal: palpable abd wall masses, tender to palpation diffuse discomfort to deep palpation of the abd. , no guarding, rebound or rigidity Abdomen moving with respiration Normoactive bowel sounds Skin: right chest mediport, Normal temperature, tone, texture, turgor No induration No subcutaneous nodules No rash, lesions No ulcers Extremities: No digital cyanosis No clubbing Pedal pulses intact and symmetrical Radial pulses intact and symmetrical No calf tenderness Psychiatric: Alert and oriented to person, place and time Appropriate affect fair judgement Neuro Muscles Strength 4/5 in all 4 extremities Sensation to light touch grossly present throughout Cranial nerves II-XII grossly intact Lymphatics: no palpable cervical or supraclavicular lymph nodes Results CBC & Chem 7: 12/07/22 00:05 12/07/22 00:05 Labs: Abnormal Lab Results - Last 24 Hours (Table) 12/07/22 12/07/22 Range/Units 00:05 00:05 RBC 3.22 L (3.80-5.40) m/uL Hgb 9.8 L (11.4-16.0) gm/dL Hct 29.6 L (34.0-46.0) % Lymphocytes # 0.6 L (1.0-4.8) k/uL Sodium 134 L (137-145) mmol/L BUN 29 H (7-17) mg/dL Glucose 107 H (74-99) mg/dL Total Protein 5.9 L (6.3-8.2) g/dL Assessment and Plan Assessment: intractable abd pain abd wall masses secondary to metastatic adenocarcinoma pain control with dilaudid palliative consult oncology consult symptomatic control IVF hydration with normal saline chronic conditions DM insulin sliding scale afib s/p pacemaker hypertension resume home meds full code DVT PPX coumadin dosing by pharma for afib verify home meds
[2022-12-07] MEDS ORDERED: ZOLPIDEM 5 MG TAB PO PRN (03:12)
[2022-12-07] MEDS ORDERED: DOCUSATE 100 MG CAP PO STA (04:29)
[2022-12-07 05:44] LABS: INR 1.9 (<1.2); Prothrombin Time 18.4 sec (9.0-12.0)
[2022-12-07] MEDS: LIDOCAINE 5% PATCH TOPICAL SCH (09:27)
[2022-12-07] MEDS ORDERED: bisacodyL 10 MG SUPP RECTAL STA ×2 (09:39→11:27)
[2022-12-07] MEDS ORDERED: bisacodyL 10 MG SUPP RECTAL PRN (09:39)
[2022-12-07] MEDS ORDERED: DOCUSATE 100 MG CAP PO PRN (09:43)
--- NOTE | 2022-12-07 10:13 | P.CONS ---
History of Present Illness - Reason for Consult Consult date: 12/07/22 Intractable pain Requesting physician: Myra Hackett - Chief Complaint abdominal pain - History of Present Illness The patient is an 82-year-old woman with a past medical history significant for A. fib, CHF, diabetes mellitus, GERD, hyperlipidemia, hypertension, neuropathy, colon cancer S/P resection, breast cancer, PPM, AVR/MVR, and metastatic adenocarcinoma. The patient presented to the emergency department on 12/06/22 with severe abdominal pain. She states she takes Tylenol 3 at home for pain. However they have not been relieving her pain for some time now. She has not been able to sleep well or eat. She has been having associated nausea. She is a patient of Dr. Barajas, and oncology has been consulted. She denies any fever, chills, sore throat, cough, dyspnea, chest pain, diarrhea, or headaches. Review of Systems Constitutional: Reports as per HPI Past Medical History Past Medical History: Atrial Fibrillation, Cancer, Heart Failure, Diabetes Mellitus, GERD/Reflux, Hyperlipidemia, Hypertension Additional Past Medical History / Comment(s): Neuropathy feet., hx Rheumatic fever., gout , hx colon CA with resection., hx breast cancer., hx of diabetic toe ulcers., states received covid vaccine x2 doses and had a problem with her heart and not able to take anymore covid vaccines., Pacemaker., states diarrhea & constipation, states having right abdominal pain, no longer on any medications for diabetes History of Any Multi-Drug Resistant Organisms: None Reported Past Surgical History: Appendectomy, Bowel Resection, Cardiac Valve Replacement, Cholecystectomy, Hysterectomy, Pacemaker Additional Past Surgical History / Comment(s): 1994 mitral and aortic mechanical valves placed. Pacemakers-generator change 11/28/21., Colonoscopy. Debridements bilateral great toe diabetic ulcers. , cataracts with lens implants Past Anesthesia/Blood Transfusion Reactions: No Reported Reaction Additional Past Anesthesia/Blood Transfusion Reaction / Comm: blood transfusions no issues. Type of Cardiac Device: Permanent Pacemaker Device Placement Date:: Pt cannot recall date of last pacer insertion but generator changed 2021 Past Psychological History: Anxiety Smoking Status: Never smoker - Past Family History Brother(s) Additional Family Medical History / Comment(s): brothers had " heart problems" Father History Unknown: Yes Family Medical History: No Reported History Additional Family Medical History / Comment(s): Father committed suicide in his 50s.drinker Mother History Unknown: Yes Family Medical History: No Reported History Additional Family Medical History / Comment(s): Mother was healthy and lived to be 92 yrs old. Daughter(s) Family Medical History: Cancer Additional Family Medical History / Comment(s): breast cancer Medications and Allergies Home Medications Medication Instructions Recorded Confirmed Type Simvastatin [Zocor] 40 mg PO HS 03/18/17 12/07/22 History Furosemide [Lasix] 40 mg PO BID-W/MEALS 06/03/18 12/07/22 History hydrALAZINE HCL [Apresoline] 25 mg PO BID #60 tab 06/16/18 12/07/22 Rx allopurinoL [Zyloprim] 100 mg PO DAILY 01/14/19 12/07/22 History calcitrioL [Rocaltrol] 0.25 mcg PO FR 01/14/19 12/07/22 History Spironolactone [Aldactone] 50 mg PO DAILY 01/24/19 12/07/22 History Warfarin [Coumadin] 1.25 mg PO MOWEFR 12/01/21 12/07/22 History atenoloL [Tenormin] 25 mg PO BID 02/12/22 12/07/22 History Cholecalciferol [Vitamin D3 (25 25 mcg PO DAILY 03/27/22 12/07/22 History Mcg = 1000 Iu)] Ferrous Sulfate [Iron (65 MG 325 mg PO BID 03/27/22 12/07/22 History Elemental)] Warfarin [Coumadin] 2.5 mg PO SUTUTHSA 08/20/22 12/07/22 History Acetaminophen Tab [Tylenol Tab] 1,000 mg PO TID PRN #60 tablet 08/26/22 12/07/22 Rx Acetaminophen with Codeine 1 tab PO HS 09/28/22 12/07/22 History [Tylenol w/Codeine #2 Tablet] Ibuprofen [Motrin] 600 mg PO Q6HR PRN #40 tab 09/29/22 12/07/22 Rx Allergies Allergy/AdvReac Type Severity Reaction Status Date / Time Iodinated Contrast Media Allergy Anaphylaxis Verified 12/07/22 07:34 [Iodinated Contrast Media - IV Dye] Physical Exam Vitals: Vital Signs Temp Pulse Resp BP Pulse Ox 12/07/22 08:48 61 18 126/68 97 12/07/22 05:00 62 16 156/68 97 12/07/22 01:42 60 16 150/65 94 L 12/06/22 21:39 97.4 F L 71 16 154/71 98 Intake and Output 12/06/22 12/07/22 12/07/22 22:59 06:59 14:59 Other: Weight 63.503 kg General: Well developed, well nourished. No acute distress. Appears stated age HEENT: Head is atraumatic, normocephalic. CV: Heart irregular in rhythm. Positive S1 and S2. No peripheral edema Lungs: Clear to auscultation bilaterally. Respirations even and nonlabored. Abdomen/GI: Soft. + abdominal tenderness. No guarding or rigidity. Musculoskeletal/ Extremities: RIVERA, no joint deformity or swelling. No gross atrophy. + generalized weakness Skin: Warm and dry, No rash or lesions. Neurologic: Awake, alert and oriented times 3. CN II-XII grossly intact. No focal deficits. Psychiatric: Appropriate mood and affect. Results CBC & Chem 7: 12/07/22 00:05 12/07/22 00:05 Labs: Abnormal Lab Results - Last 24 Hours (Table) 12/07/22 12/07/22 12/07/22 Range/Units 00:05 00:05 05:00 RBC 3.22 L (3.80-5.40) m/uL Hgb 9.8 L (11.4-16.0) gm/dL Hct 29.6 L (34.0-46.0) % Lymphocytes # 0.6 L (1.0-4.8) k/uL PT 18.4 H (9.0-12.0) sec INR 1.9 H (<1.2) Sodium 134 L (137-145) mmol/L BUN 29 H (7-17) mg/dL Glucose 107 H (74-99) mg/dL Total Protein 5.9 L (6.3-8.2) g/dL Assessment and Plan Assessment: Symptoms * Pain - 5/10 diffuse abdominal pain. Victoria 7.5 Q6H scheduled, continue Tylenol, Motrin, and Dilaudid for breakthrough pain. Consider long-acting o pioids. * Fatigue - increased energy level * SOB - none * Insomnia - yes, continue Ambien * N/V - + nausea, no vomiting. Continue Zofran as needed * Anxiety - yes, associated with her pain * Depression - occasionally * Confusion - no * Agitation - no * Hallucinations - no * Appetite/weight loss - decreased appetite for several months secondary to pain and nausea. + Recent weight loss. Continue regular diet, frequent light meals suggested. Added Magic cup * Dysphagia - no * Constipation - yes, chronic constipation. LBM several days ago. Dulcolax suppository 1 now, and then daily as needed. Continue Colace. Suggested increase fluid intake. * Incontinence - no * Itch - no * Cough - no Plan: Summary/Goals - met with the patient and her daughter in the emergency department. Information regarding palliative care philosophies and services provided. The patient was lying on her side on the stretcher. She stated they have gotten her pain down to a tolerable level. Discussed pain management strategy with patient and daughter. The patient states that her Tylenol #3 that she normally takes at home does not help anymore. This includes Victoria scheduled Q8H, and using Dilaudid for breakthrough pain. If this plan does not control he r pain adequately, long-acting opioids will be considered. The patient was encouraged to ask for Zofran when she is feeling nauseated. The patient also states that she has not had a bowel movement in several days. She believes this is adding to her abdominal discomfort and nausea. She normally takes Colace and occasionally drinks prune juice at home. She was agreeable to drink more fluids and try a suppository. CODE STATUS was discussed in detail with the patient and her daughter. The patient is adamant that she would like to be a DO NOT RESUSCITATE. Her daughter is in agreement. At this time the patient's goals are for adequate pain relief and to continue her immunotherapy. Advanced Directives - none on file Code Status - DO NOT RESUSCITATE Thank you for this consultation Dannielle Griffith [facility] Palliative Care [place] [id number] Email: [email or web address] Time with Patient: Greater than 30
[2022-12-07] MEDS: HYDROcodone/APAP 7.5-325MG 1 EACH TAB PO SCH ×3 (11:43→23:43)
[2022-12-07] MEDS: ONDANSETRON 4 MG/2 ML VIAL IVP PRN (13:52)
--- NOTE | 2022-12-07 15:26 | P.PN ---
Subjective Progress Note Date: 12/07/22 Hospital course: Patient is a very pleasant 82-year-old female with a past medical history of rheumatic fever and mechanical cardiac valve replacement on anticoagulation with Coumadin, hypertension, hyperlipidemia, CAD with pacemaker placement, and history of invasive ductal carcinoma of the breast, and metastatic adenocarcinoma of the colon. She presented to the emergency department secondary to uncontrolled cancer pain accompanied by nausea and anorexia. Patient underwent full evaluation in the emergency department. CBC showing normocytic anemia with hemoglobin of 9.8. BMP revealing mild hyponatremia with sodium of 134 prerenal azotemia with BUN of 29. Pt admitted under our services with consult to palliative care and oncology. Physical exam: Patient seen and fully evaluated at the bedside. Patient's daughter also had bedside. Patient recently received Dilaudid for pain management and reports Dilaudid is controlling current pain. Palliative care and oncology are consulted for assistance with pain management and plan for discharge on appropriate pain medication regimen. Patient reports nausea is currently controlled but continues to have no appetite. Patient being started on Marinol for assistance with increasing appetite which may also have a secondary benefit of assisting with pain management. Vital signs reviewed and stable. General: Nontoxic, no distress and appears stated age. Derm: Skin warm and dry, normal coloration for ethnicity. Head: Atraumatic, normocephalic and symmetric. Eyes: EOMs intact, no lid lag, and anicteric sclera Mouth: no lip lesions, mucus membranes moist Cardiovascular: regular rate and rhythm with normal S1S2, mechanical click, positive posterior tibial pulses bilaterally, and cap refill < 2 seconds. Lungs: Respirations even, regular, and unlabored on room air. Lungs CTA bilaterally, no rhonchi, no rales, no wheezing, and no accessory muscle usage. Abdominal: soft, tenderness upon palpation to left upper quadrant no guarding, no appreciable organomegaly Ext: ROM intact. No gross muscle atrophy, no edema, no contractures Neuro: Speech clear, face symmetrical and CN II-XII grossly intact with no noted focal neuro deficits Psych: Alert and oriented to person, place, time, and situation. Appropriate and pleasant affect. Assessment and Plan of Care: Intractable abdominal pain, secondary to uncontrolled cancer pain Abdominal wall mass secondary to metastatic adenocarcinoma Decreased appetite, anorexia -Symptomatic care and pain management -Palliative care consult -Oncology consult -IV fluid hydration -Protein supplements 3 times daily between meals -We will start patient on Marinol to assist with increasing appetite Subtherapeutic INR in pt with mechanical heart valve -Patient started on Lovenox to bridge until INR is therapeutic between 2.5 and 3.5 Hypertension -Monitor vital signs and continue daily medication regimen with atenolol and hydralazine. CODE STATUS: DO NOT RESUSCITATE/DO NOT INTUBATE DVT prophylaxis: Coumadin/Lovenox being bridged as patient has subtherapeutic INR with mechanical heart valve Discussed with: Patient, patient's daughter, and RN Anticipated discharge date: 1-2 days pending adequate pain control Anticipated discharge place: Home A total of 36 minutes was spent on the care of this complex patient more than 50% of the time was spent in counseling and care coordination. Gildardo Parish NP rendered care for this patient independently, reviewed the findings and plan as documented in the note above. I did not physically speak with or examine the patient on this date. Anemia, worsening-- repeat CBC in AM. Objective - Vital Signs Vital signs: Vital Signs Temp 97.4 F L 12/06/22 21:39 Pulse 61 12/07/22 08:48 Resp 18 12/07/22 08:48 BP 126/68 12/07/22 08:48 Pulse Ox 97 12/07/22 08:48 FiO2 Intake & Output 12/06/22 12/07/22 12/07/22 18:59 06:59 18:59 Weight 63.503 kg - Labs CBC & Chem 7: 12/07/22 00:05 12/07/22 00:05 Labs: Abnormal Lab Results - Last 24 Hours (Table) 12/07/22 12/07/22 12/07/22 Range/Units 00:05 00:05 05:00 RBC 3.22 L (3.80-5.40) m/uL Hgb 9.8 L (11.4-16.0) gm/dL Hct 29.6 L (34.0-46.0) % Lymphocytes # 0.6 L (1.0-4.8) k/uL PT 18.4 H (9.0-12.0) sec INR 1.9 H (<1.2) Sodium 134 L (137-145) mmol/L BUN 29 H (7-17) mg/dL Glucose 107 H (74-99) mg/dL Total Protein 5.9 L (6.3-8.2) g/dL
[2022-12-07] MEDS ORDERED: WARFARIN 2.5 MG TAB PO ONE (18:00)
[2022-12-07] MEDS: ENOXAPARIN 60 MG/0.6 ML SYRINGE SQ SCH ×2 (18:19→21:28)
--- NOTE | 2022-12-07 18:35 | P.CONS ---
History of Present Illness - Reason for Consult Consult date: 12/07/22 metastatic colon carcinoma Requesting physician: Myra Hackett - Chief Complaint intractable abdominal pain - History of Present Illness Patient is an 82 year old female with history of invasive ductal carcinoma of the breast and metastatic adenocarcinoma of the colon, recently restarted on keytruda for recurrent colon adeno. She presented to the ER c/o intractable abdominal pain that was not being controlled with home pain regimen that had been working previously. She does report improvement in pain since receiving pain medications. She reports n/v which has since subsided since pain control. Constipated, stating last BM was 2-3 days ago. Denies rectal bleeding, melena, hematuria, fever and chills. Pt has no known family history of colon cancer, daughter had Breast & Cervical cancers (35). She is a lifetime non smoker, denies ETOH use. Has type II IDDM with mild diabetic neuropathy, she is on lifetime anticoagulation with coumadin (Prosthetic heart valves). Oncology Hx: Had diagnostic Colonoscopy with 06/09/2018 revealing 3-4 cm ulcerated cecal mass, biopsy revealed invasive adenocarcinoma with mucinous features. Had Laparoscopic right colectomy by Dr. Ken on 06/10/2018 revealing 3.5cm grade I (well differentiated) adenocarcinoma invading through to pericolic fat, 1-8 lymph nodes + for metastatic Carcinoma (7mm). Marging all negative. Completed adjuvant therapy 02/2019. May 2019, pt reported weight loss, left nodule/abdomen pain worse. CEA increased 6.9. Had US, CT and biopsy, showing metastatic colon carcinoma. June 2019, had resection of LUQ mass by Dr Ken. PET showed breast lesion & L axillary LN suspicious for malignancy. CEA elevated to 6.1. Breast biopsy was + for invasive ductal carcinoma, triple negative. Completed XRT to L Breast 10/2019. March 2021 PET with increase tracer near surgical site, possible physiological, described as intermediate and recommendation for endoscopy, otherwise no other evidence to suggest recurrence or progression. 03/13/22 follow-up PET scan showed uptake in the abdomen at the level of the surgical site SUV 4.6, indeterminate, no other abnormal findings. Colonoscopy was done on 03/31/22 which was negative. Patient was in the hospital in early August, CT AP was suspicious for enlarging mass when compared with PET scan 03/13. Biopsy was done 09/03/22 of an abdominal mall mass, pathology consistent with metastatic adenocarcinoma, mucinous features consistent with a colorectal primary. Patient was restarted on Keytruda 10/2022, after 1 year off treatment. She has completed 4 cycles to date. Review of Systems 10 point ROS negative except as stated in HPI Past Medical History Past Medical History: Atrial Fibrillation, Cancer, Heart Failure, Diabetes Mellitus, GERD/Reflux, Hyperlipidemia, Hypertension Additional Past Medical History / Comment(s): Neuropathy feet., hx Rheumatic fever., gout , hx colon CA with resection., hx breast cancer., hx of diabetic toe ulcers., states received covid vaccine x2 doses and had a problem with her heart and not able to take anymore covid vaccines., Pacemaker., states diarrhea & constipation, states having right abdominal pain, no longer on any medications for diabetes History of Any Multi-Drug Resistant Organisms: None Reported Past Surgical History: Appendectomy, Bowel Resection, Cardiac Valve Replacement, Cholecystectomy, Hysterectomy, Pacemaker Additional Past Surgical History / Comment(s): 1994 mitral and aortic mechanical valves placed. Pacemakers-generator change 11/28/21., Colonoscopy. Debridements bilateral great toe diabetic ulcers. , cataracts with lens implants Past Anesthesia/Blood Transfusion Reactions: No Reported Reaction Additional Past Anesthesia/Blood Transfusion Reaction / Comm: blood transfusions no issues. Type of Cardiac Device: Permanent Pacemaker Device Placement Date:: Pt cannot recall date of last pacer insertion but generator changed 2021 Past Psychological History: Anxiety Smoking Status: Never smoker - Past Family History Brother(s) Additional Family Medical History / Comment(s): brothers had " heart problems" Father History Unknown: Yes Family Medical History: No Reported History Additional Family Medical History / Comment(s): Father committed suicide in his 50s.drinker Mother History Unknown: Yes Family Medical History: No Reported History Additional Family Medical History / Comment(s): Mother was healthy and lived to be 92 yrs old. Daughter(s) Family Medical History: Cancer Additional Family Medical History / Comment(s): breast cancer Medications and Allergies Home Medications Medication Instructions Recorded Confirmed Type Simvastatin [Zocor] 40 mg PO HS 03/18/17 12/07/22 History Furosemide [Lasix] 40 mg PO BID-W/MEALS 06/03/18 12/07/22 History hydrALAZINE HCL [Apresoline] 25 mg PO BID #60 tab 06/16/18 12/07/22 Rx allopurinoL [Zyloprim] 100 mg PO DAILY 01/14/19 12/07/22 History calcitrioL [Rocaltrol] 0.25 mcg PO FR 01/14/19 12/07/22 History Spironolactone [Aldactone] 50 mg PO DAILY 01/24/19 12/07/22 History Warfarin [Coumadin] 1.25 mg PO MOWEFR 12/01/21 12/07/22 History atenoloL [Tenormin] 25 mg PO BID 02/12/22 12/07/22 History Cholecalciferol [Vitamin D3 (25 25 mcg PO DAILY 03/27/22 12/07/22 History Mcg = 1000 Iu)] Ferrous Sulfate [Iron (65 MG 325 mg PO BID 03/27/22 12/07/22 History Elemental)] Warfarin [Coumadin] 2.5 mg PO SUTUTHSA 08/20/22 12/07/22 History Acetaminophen Tab [Tylenol Tab] 1,000 mg PO TID PRN #60 tablet 08/26/22 12/07/22 Rx Acetaminophen with Codeine 1 tab PO HS 09/28/22 12/07/22 History [Tylenol w/Codeine #2 Tablet] Ibuprofen [Motrin] 600 mg PO Q6HR PRN #40 tab 09/29/22 12/07/22 Rx Allergies Allergy/AdvReac Type Severity Reaction Status Date / Time Iodinated Contrast Media Allergy Anaphylaxis Verified 12/07/22 07:34 [Iodinated Contrast Media - IV Dye] Physical Exam Vitals: Vital Signs Temp Pulse Resp BP Pulse Ox 12/07/22 08:48 61 18 126/68 97 12/07/22 05:00 62 16 156/68 97 12/07/22 01:42 60 16 150/65 94 L 12/06/22 21:39 97.4 F L 71 16 154/71 98 Intake and Output 12/06/22 12/07/22 12/07/22 22:59 06:59 14:59 Other: Weight 63.503 kg - Constitutional General appearance: average body habitus, cooperative, no acute distress - EENT Eyes: anicteric sclerae, EOMI ENT: hearing grossly normal - Respiratory Respiratory: bilateral: CTA - Cardiovascular Rhythm: regular Heart sounds: normal: S1, S2 Abnormal Heart Sounds: no systolic murmur, no diastolic murmur, no rub, no S3 Gallop, no S4 Gallop, no click, no other leg Peripheral Edema: bilateral: None - Gastrointestinal General gastrointestinal: normal bowel sounds, soft, no tenderness - Integumentary Integumentary: normal - Neurologic grossly intact Neurologic: CNII-XII intact - Musculoskeletal Musculoskeletal: strength equal bilaterally - Psychiatric Psychiatric: A&O x's 3, appropriate affect, intact judgment & insight Results CBC & Chem 7: 12/07/22 00:05 12/07/22 00:05 Labs: Abnormal Lab Results - Last 24 Hours (Table) 12/07/22 12/07/22 12/07/22 Range/Units 00:05 00:05 05:00 RBC 3.22 L (3.80-5.40) m/uL Hgb 9.8 L (11.4-16.0) gm/dL Hct 29.6 L (34.0-46.0) % Lymphocytes # 0.6 L (1.0-4.8) k/uL PT 18.4 H (9.0-12.0) sec INR 1.9 H (<1.2) Sodium 134 L (137-145) mmol/L BUN 29 H (7-17) mg/dL Glucose 107 H (74-99) mg/dL Total Protein 5.9 L (6.3-8.2) g/dL Assessment and Plan (1) Uncontrolled pain Current Visit: Yes Status: Acute Priority: High Code(s): R52 - PAIN, UNSPECIFIED SNOMED Code(s): 14598200214109212 (2) Metastatic adenocarcinoma to colorectal region Current Visit: Yes Status: Chronic Priority: High Code(s): C78.5 - SECONDARY MALIGNANT NEOPLASM OF LARGE INTESTINE AND RECTUM SNOMED Code(s): 055280035 Plan: Intractable pain -Likely 2/2 malignancy -Palliative care consulted for outpatient pain control, as tylenol 3 was no longer managing pain. Recommend titration of pain meds to comfort, convert to oral regimen -meds for prevention of narcotic induced constipation -Pain was improved upon assessment in ER after pain med administration with resolution in N/V. Metastatic colon carcinoma: -Keytruda will be continued in the outpt setting, as pt is tolerating regimen well at this time -Pt is clear for discharge from Hem/Onc standpoint once on appropriate oral pain medication regimen Anemia: Hemoglobin stable, 9.8. Previous hgb in office were in the 11 range. Denies any abnormal rectal bleeding, melena, or hematemesis. Please transfuse for hemoglobin less than 7 or if symptomatic Anemia workup ordered Will continue to monitor blood counts
[2022-12-07] MEDS: atenoloL 25 MG TAB PO SCH (21:27)
[2022-12-07] MEDS: FERROUS SULFATE 325 MG TAB PO SCH (21:27)
[2022-12-07] MEDS: hydrALAZINE HCL 25 MG TAB PO SCH (21:27)
[2022-12-07] MEDS: ATORVASTATIN 20 MG TAB PO SCH (21:28)
[2022-12-08] MEDS: HYDROcodone/APAP 7.5-325MG 1 EACH TAB PO SCH ×4 (06:00→23:06)
[2022-12-08 06:41] LABS: MCH 31.4 pg (25.0-35.0); MCHC 33.4 g/dL (31.0-37.0); MCV 93.9 fL (80.0-100.0); Mean Platelet Volume 7.2; Platelet Count 204 k/uL (150-450); RBC 3.19 m/uL (3.80-5.40); RDW 14.3 % (11.5-15.5); WBC 7.7 k/uL (3.8-10.6)
[2022-12-08 07:32] LABS: INR 2.4 (<1.2); Prothrombin Time 23.2 sec (9.0-12.0)
[2022-12-08] MEDS ORDERED: NA PHOS,M-B/NA PHOS,DI-BA 133 ML ENEMA RECTAL STA (08:53)
[2022-12-08] MEDS: ONDANSETRON 4 MG/2 ML VIAL IVP PRN (09:28)
[2022-12-08 09:56] LABS: Reticulocyte % 2.5 % (0.10-1.80)
[2022-12-08] MEDS: FERROUS SULFATE 325 MG TAB PO SCH ×2 (10:08→20:47)
[2022-12-08] MEDS: LIDOCAINE 5% PATCH TOPICAL SCH (10:09)
[2022-12-08] MEDS: hydrALAZINE HCL 25 MG TAB PO SCH ×2 (10:09→20:47)
[2022-12-08] MEDS: ENOXAPARIN 60 MG/0.6 ML SYRINGE SQ SCH ×2 (10:09→20:47)
[2022-12-08] MEDS: atenoloL 25 MG TAB PO SCH ×2 (10:09→20:47)
[2022-12-08 10:54] LABS: % Iron Saturation 10.08 (12.00-45.00)
[2022-12-08] MEDS ORDERED: MAGNESIUM HYDROXIDE 2,400 MG/10 ML CUP PO PRN (11:08)
--- NOTE | 2022-12-08 15:29 | P.PN ---
Subjective Progress Note Date: 12/08/22 The patient is an 82-year-old woman with a past medical history significant for A. fib, CHF, diabetes mellitus, GERD, hyperlipidemia, hypertension, neuropathy, colon cancer S/P resection, breast cancer, PPM, AVR/MVR, and metastatic adenocarcinoma. The patient presented to the emergency department on 12/06/22 with severe abdominal pain. She states she takes Tylenol 3 at home for pain. However they have not been relieving her pain for some time now. She has not been able to sleep well or eat. She has been having associated nausea. She is a patient of Dr. Barajas, and oncology has been consulted. She denies any fever, chills, sore throat, cough, dyspnea, chest pain, diarrhea, or headaches. 12/07 Met with the patient and her daughter in the emergency department. Information regarding palliative care philosophies and services provided. The patient was lying on her side on the stretcher. She stated they have gotten her pain down to a tolerable level. Discussed pain management strategy with patient and daughter. The patient states that her Tylenol #3 that she normally takes at home does not help anymore. This includes [place] scheduled Q8H, and using Dilaudid for breakthrough pain. If this plan does not control her pain adequately, long-acting opioids will be considered. The patient was encouraged to ask for Zofran when she is feeling nauseated. The patient also states that she has not had a bowel movement in several days. She believes this is adding to her abdominal discomfort and nausea. She normally takes Colace and occasionally drinks prune juice at home. She was agreeable to drink more fluids and try a suppository. CODE STATUS was discussed in detail with the patient and her daughter. The patient is adamant that she would like to be a DO NOT RESUSCITATE. Her daughter is in agreement. At this time the patient's goals are for adequate pain relief and to continue her immunotherapy. Objective - Vital Signs Vital signs: Vital Signs Temp 98.0 F 12/08/22 07:21 Pulse 62 12/08/22 07:21 Resp 16 12/08/22 07:21 BP 109/54 12/08/22 07:21 Pulse Ox 98 12/08/22 07:21 FiO2 Intake & Output 12/07/22 12/08/22 12/08/22 18:59 06:59 18:59 Other: Voiding Method Toilet # Voids 1 - Exam General: Well developed, well nourished. No acute distress. Appears stated age HEENT: Head is atraumatic, normocephalic. CV: Heart irregular in rhythm. Positive S1 and S2. No peripheral edema Lungs: Clear to auscultation bilaterally. Respirations even and nonlabored. Abdomen/GI: Soft, mildly distended + abdominal tenderness. No guarding or rigidity. Musculoskeletal/ Extremities: RIVERA, no joint deformity or swelling. No gross atrophy. + generalized weakness Skin: Warm and dry, No rash or lesions. Neurologic: Awake, alert and oriented times 3. CN II-XII grossly intact. No focal deficits. Psychiatric: Appropriate mood and affect. - Labs CBC & Chem 7: 12/08/22 06:14 12/07/22 00:05 Labs: Abnormal Lab Results - Last 24 Hours (Table) 12/08/22 12/08/22 Range/Units 06:14 06:14 RBC 3.19 L (3.80-5.40) m/uL Hgb 10.0 L (11.4-16.0) gm/dL Hct 30.0 L (34.0-46.0) % PT 23.2 H (9.0-12.0) sec INR 2.4 H (<1.2) Assessment and Plan Assessment: Symptoms * Pain - 5/10 diffuse abdominal pain. [place] 7.5 Q6H scheduled, continue Tylenol, Motrin, and Dilaudid for breakthrough pain. Consider long-acting opioids. * Fatigue - increased energy level * SOB - none * Insomnia - yes, continue Ambien * N/V - + nausea, no vomiting. Continue Zofran as needed * Anxiety - yes, associated with her pain * Depression - occasionally * Confusion - no * Agitation - no * Hallucinations - no * Appetite/weight loss - decreased appetite for several months secondary to pain and nausea. + Recent weight loss. Continue regular diet, frequent light meals suggested. Added Magic cup, continue Marinol * Dysphagia - no * Constipation - yes, chronic constipation. LBM several days ago. Dulcolax suppository given without satisfactory results. Fleets enema ordered. Continue Colace. Suggested increase fluid intake. Miralax daily when nausea subsided * Incontinence - no * Itch - no * Cough - no Plan: Summary/Goals - The patient is resting in bed. She reports that her pain is better, but she is still uncomfortable. She believes this is due to her inability to have a bowel movement in several days. She was given a suppository yesterday and had a tiny hard stool. She agreed to a fleets enema today. She is still nauseated and unable to eat which is likely related to her constipation as well. Reminded her to ask for antiemetic when needed. Will start Miralax daily once her nausea subsides. She was encouraged to drink more fluid. Advanced Directives - none on file Code Status - DO NOT RESUSCITATE Thank you for this consultation Dannielle Griffith [facility]- Palliative Care [employer] [phone] Email: [email or web address]
[2022-12-08] MEDS ORDERED: LACTULOSE 20 GM/30 ML CUP PO ONE (16:29)
--- NOTE | 2022-12-08 16:45 | P.PN ---
Subjective Progress Note Date: 12/08/22 Hospital course: Patient is a very pleasant 82-year-old female with a past medical history of rheumatic fever and mechanical cardiac valve replacement on anticoagulation with Coumadin, hypertension, hyperlipidemia, CAD with pacemaker placement, and history of invasive ductal carcinoma of the breast, and metastatic adenocarcinoma of the colon. She presented to the emergency department secondary to uncontrolled cancer pain accompanied by nausea and anorexia. Patient underwent full evaluation in the emergency department. CBC showing normocytic anemia with hemoglobin of 9.8. BMP revealing mild hyponatremia with sodium of 134 prerenal azotemia with BUN of 29. Pt admitted under our services with consult to palliative care and oncology. Physical exam: Patient seen and fully evaluated at the bedside. Patient reports feeling full and bloated and unable to have a bowel movement despite laxative and enema previously administered. Patient to be given lactulose x1 dose will continue bowel regimen. Patient does report improvement in pain control since being started on [place] and Dilaudid she states she remains unable to eat because she feels full and constipated at this time.. Awaiting additional recommendations from oncology and palliative care. INR did improve to 2.4 but still remains subtherapeutic, patient to continue bridge with Lovenox and Coumadin until INR is therapeutic between 2.5 and 3.5. Vital signs reviewed and stable. General: Nontoxic, no distress and appears stated age. Derm: Skin warm and dry, normal coloration for ethnicity. Head: Atraumatic, normocephalic and symmetric. Eyes: EOMs intact, no lid lag, and anicteric sclera Mouth: no lip lesions, mucus membranes moist Cardiovascular: regular rate and rhythm with normal S1S2, mechanical click, positive posterior tibial pulses bilaterally, and cap refill < 2 seconds. Lungs: Respirations even, regular, and unlabored on room air. Lungs CTA bilaterally, no rhonchi, no rales, no wheezing, and no accessory muscle usage. Abdominal: soft, tenderness upon palpation to left upper quadrant no guarding, no appreciable organomegaly Ext: ROM intact. No gross muscle atrophy, no edema, no contractures Neuro: Speech clear, face symmetrical and CN II-XII grossly intact with no noted focal neuro deficits Psych: Alert and oriented to person, place, time, and situation. Appropriate and pleasant affect. Assessment and Plan of Care: Intractable abdominal pain, secondary to uncontrolled cancer pain Abdominal wall mass secondary to metastatic adenocarcinoma Decreased appetite, anorexia -Symptomatic care and pain management -Palliative care consulted, appreciate recommendations -Oncology consulted, appreciate recommendations -IV fluid hydration -Protein supplements 3 times daily between meals -Patient was started on Marinol to assist with increasing appetite Constipation -Patient reports feeling full and bloated and unable to have a bowel movement despite laxative previously administered. Subtherapeutic INR in pt with mechanical heart valve -Patient to continue Lovenox to bridge until INR is therapeutic between 2.5 and 3.5 Hypertension -Monitor vital signs and continue daily medication regimen with atenolol and hydralazine. CODE STATUS: DO NOT RESUSCITATE/DO NOT INTUBATE DVT prophylaxis: Coumadin/Lovenox being bridged as patient has subtherapeutic INR with mechanical heart valve Discussed with: Patient and RN Anticipated discharge date: 1-2 days pending adequate pain control Anticipated discharge place: Home A total of 32 minutes was spent on the care of this complex patient more than 50% of the time was spent in counseling and care coordination. I reviewed the documentation as provided by the JUDY above, who is the original author of this note. I agree with the documented assessment and plan, with the following changes: none Objective - Vital Signs Vital signs: Vital Signs Temp 98.0 F 12/08/22 07:21 Pulse 62 12/08/22 07:21 Resp 16 12/08/22 07:21 BP 109/54 12/08/22 07:21 Pulse Ox 98 12/08/22 07:21 FiO2 Intake & Output 12/07/22 12/08/22 12/08/22 18:59 06:59 18:59 Other: Voiding Method Toilet # Voids 1 - Labs CBC & Chem 7: 12/08/22 06:14 12/07/22 00:05 Labs: Abnormal Lab Results - Last 24 Hours (Table) 12/08/22 12/08/22 Range/Units 06:14 06:14 RBC 3.19 L (3.80-5.40) m/uL Hgb 10.0 L (11.4-16.0) gm/dL Hct 30.0 L (34.0-46.0) % PT 23.2 H (9.0-12.0) sec INR 2.4 H (<1.2)
[2022-12-08] MEDS ORDERED: WARFARIN 2.5 MG TAB PO ONE (18:00)
--- NOTE | 2022-12-08 18:34 | P.PN ---
Subjective Progress Note Date: 12/08/22 Principal diagnosis: invasive ductal carcinoma of the breast and metastatic adenocarcinoma of the colon Pt resting in bed comfortably today. Cont to report abdominal discomfort. She has not had a BM since admission, has several meds yesterday and today. No other reported complaints at this time Objective - Vital Signs Vital signs: Vital Signs Temp 98.2 F 12/08/22 12:37 Pulse 60 12/08/22 12:37 Resp 16 12/08/22 12:37 BP 150/78 12/08/22 12:37 Pulse Ox 99 12/08/22 12:37 FiO2 Intake & Output 12/07/22 12/08/22 12/08/22 18:59 06:59 18:59 Other: Voiding Method Toilet Toilet # Voids 1 - Constitutional General appearance: Present: average body habitus, no acute distress - EENT Eyes: Present: anicteric sclerae, EOMI ENT: Present: hearing grossly normal - Respiratory Respiratory: bilateral: CTA - Cardiovascular Rhythm: regular Heart sounds: normal: S1, S2 Abnormal Heart Sounds: Absent: systolic murmur, diastolic murmur, rub, S3 Gallop, S4 Gallop, click, other - Gastrointestinal Gastrointestinal Comment(s): palpable mass in LLQ General gastrointestinal: Present: soft. Absent: tenderness - Integumentary Integumentary: Present: normal - Neurologic Neurologic Comment(s): grossly intact Neurologic: Present: CNII-XII intact - Musculoskeletal Musculoskeletal: Present: strength equal bilaterally - Psychiatric Psychiatric: Present: A&O x's 3, appropriate affect, intact judgment & insight - Labs CBC & Chem 7: 12/08/22 06:14 12/07/22 00:05 Labs: Abnormal Lab Results - Last 24 Hours (Table) 12/08/22 12/08/22 12/08/22 Range/Units 06:14 06:14 06:14 RBC 3.19 L (3.80-5.40) m/uL Hgb 10.0 L (11.4-16.0) gm/dL Hct 30.0 L (34.0-46.0) % Retic Count 2.50 H (0.10-1.80) % PT 23.2 H (9.0-12.0) sec INR 2.4 H (<1.2) Iron (50-170) ug/dL % Saturation (12.00-45.00) Ferritin (10.0-291.0) ng/mL 12/08/22 Range/Units 06:14 RBC (3.80-5.40) m/uL Hgb (11.4-16.0) gm/dL Hct (34.0-46.0) % Retic Count (0.10-1.80) % PT (9.0-12.0) sec INR (<1.2) Iron 33 L (50-170) ug/dL % Saturation 10.08 L (12.00-45.00) Ferritin 702.0 H (10.0-291.0) ng/mL Assessment and Plan (1) Uncontrolled pain Current Visit: Yes Status: Acute Priority: High Code(s): R52 - PAIN, UNSPECIFIED SNOMED Code(s): 02132253529208866 (2) Metastatic adenocarcinoma to colorectal region Current Visit: Yes Status: Chronic Priority: High Code(s): C78.5 - SECONDARY MALIGNANT NEOPLASM OF LARGE INTESTINE AND RECTUM SNOMED Code(s): 703729642 Plan: Intractable pain -Likely 2/2 malignancy -Palliative care consulted for outpatient pain control. Discussed with Palliative care EXECUTIVE CHEF. Cont titration of pain meds to comfort, convert to oral regimen -Discussed regimen for prevention of narcotic induced constipation. Milk of magnesia added to prune juice Metastatic colon carcinoma: -Keytruda will be continued in the outpt setting. She was just resumed after unfortunately having recurrent disease -Pt is clear for discharge from Hem/Onc standpoint once on appropriate oral pain medication regimen and passing stool Anemia: -Hemoglobin stable, 10. Previous hgb in office were in the 11 range. Denies any abnormal rectal bleeding, melena, or hematemesis. Please transfuse for h emoglobin less than 7 or if symptomatic -Work up most consistent with inflammation. Hemoglobin stable and continues to improve. No acute intervention at this time
[2022-12-08] MEDS: ATORVASTATIN 20 MG TAB PO SCH (20:47)
[2022-12-09] MEDS: HYDROcodone/APAP 7.5-325MG 1 EACH TAB PO SCH (05:45)
[2022-12-09 06:14] LABS: INR 2.4 (<1.2); Prothrombin Time 23.3 sec (9.0-12.0)
[2022-12-09] MEDS: atenoloL 25 MG TAB PO SCH ×2 (10:24→20:07)
[2022-12-09] MEDS: hydrALAZINE HCL 25 MG TAB PO SCH ×2 (10:24→20:07)
[2022-12-09] MEDS: FERROUS SULFATE 325 MG TAB PO SCH ×2 (10:24→20:07)
[2022-12-09] MEDS: LIDOCAINE 5% PATCH TOPICAL SCH (10:25)
[2022-12-09] MEDS: ENOXAPARIN 60 MG/0.6 ML SYRINGE SQ SCH ×2 (10:25→20:07)
[2022-12-09] MEDS ORDERED: HYDROcodone/APAP 10-325MG 1 EACH TAB PO PRN (11:56)
[2022-12-09] MEDS: ONDANSETRON 4 MG/2 ML VIAL IVP PRN (12:28)
--- NOTE | 2022-12-09 13:43 | P.PN ---
Subjective Progress Note Date: 12/09/22 The patient is an 82-year-old woman with a past medical history significant for A. fib, CHF, diabetes mellitus, GERD, hyperlipidemia, hypertension, neuropathy, colon cancer S/P resection, breast cancer, PPM, AVR/MVR, and metastatic adenocarcinoma. The patient presented to the emergency department on 12/06/22 with severe abdominal pain. She states she takes Tylenol 3 at home for pain. However they have not been relieving her pain for some time now. She has not been able to sleep well or eat. She has been having associated nausea. She is a patient of Dr. Barajas, and oncology has been consulted. She denies any fever, chills, sore throat, cough, dyspnea, chest pain, diarrhea, or headaches. 12/07 Met with the patient and her daughter in the emergency department. Information regarding palliative care philosophies and services provided. The patient was lying on her side on the stretcher. She stated they have gotten her pain down to a tolerable level. Discussed pain management strategy with patient and daughter. The patient states that her Tylenol #3 that she normally takes at home does not help anymore. This includes [place] scheduled Q8H, and using Dilaudid for breakthrough pain. If this plan does not control her pain adequately, long-acting opioids will be considered. The patient was encouraged to ask for Zofran when she is feeling nauseated. The patient also states that she has not had a bowel movement in several days. She believes this is adding to her abdominal discomfort and nausea. She normally takes Colace and occasionally drinks prune juice at home. She was agreeable to drink more fluids and try a suppository. CODE STATUS was discussed in detail with the patient and her daughter. The patient is adamant that she would like to be a DO NOT RESUSCITATE. Her daughter is in agreement. At this time the patient's goals are for adequate pain relief and to continue her immunotherapy. 12/08 The patient is resting in bed. She reports that her pain is better, but she is still uncomfortable. She believes this is due to her inability to have a bowel movement in several days. She was given a suppository yesterday and had a tiny hard stool. She agreed to a fleets enema today. She is still nauseated and unable to eat which is likely related to her constipation as well. Reminded her to ask for antiemetic when needed. Will start Miralax daily once her nausea subsides. She was encouraged to drink more fluid. Objective - Vital Signs Vital signs: Vital Signs Temp 97.4 F L 12/09/22 12:50 Pulse 63 12/09/22 12:50 Resp 18 12/09/22 12:50 BP 143/85 12/09/22 12:50 Pulse Ox 98 12/09/22 12:50 FiO2 Intake & Output 12/08/22 12/09/22 12/09/22 18:59 06:59 18:59 Intake Total 100 340 Balance 100 340 Intake: Oral 100 340 Other: Voiding Method Toilet Toilet Toilet # Voids 3 - Exam General: Well developed, well nourished. No acute distress. Appears stated age HEENT: Head is atraumatic, normocephalic. CV: Heart irregular in rhythm. Positive S1 and S2. No peripheral edema Lungs: Clear to auscultation bilaterally. Respirations even and nonlabored. Abdomen/GI: Soft, + abdominal tenderness. No guarding or rigidity. Musculoskeletal/ Extremities: RIVERA, no joint deformity or swelling. No gross atrophy. + generalized weakness Skin: Warm and dry Neurologic: Awake, alert and oriented times 3. CN II-XII grossly intact. No focal deficits. Psychiatric: Appropriate mood and affect. - Labs CBC & Chem 7: 12/08/22 06:14 12/07/22 00:05 Labs: Abnormal Lab Results - Last 24 Hours (Table) 12/09/22 Range/Units 05:26 PT 23.3 H (9.0-12.0) sec INR 2.4 H (<1.2) Assessment and Plan Assessment: Symptoms * Pain - 7/10 diffuse abdominal pain. [place] 10 Q6Hprn , 12.5 mcg fentanyl patch, Tylenol, and Motrin * Fatigue - increased energy level * SOB - none * Insomnia - yes, continue Ambien * N/V - + nausea, no vomiting. Continue Zofran as needed * Anxiety - yes, associated with her pain * Depression - occasionally * Confusion - no * Agitation - no * Hallucinations - no * Appetite/weight loss - decreased appetite for several months secondary to pain and nausea. + Recent weight loss. Continue regular diet, frequent light meals suggested. Added Magic cup, continue Marinol * Dysphagia - no * Constipation - yes, chronic constipatyion. Colace, MiraLAX, and Dulcolax when necessary * Incontinence - no * Itch - no * Cough - no Plan: Summary/Goals - the patient is up in a chair today. She appears more comfortable. Her daughter is present at the present. The patient states that her pain is better. However, she currently reports having a 7/10 pain. She was able to have a couple bowel movements yesterday after receiving an enema and lactulose. She reported that her nausea has improved and was able to eat some breakfast today. She was nauseated this morning after taking her pain pill. She was instructed to take her medication with food. The patient lives alone. It was suggested to the patient that she begin to look forward and discuss her wishes with her daughter. She is aware that she will not be able to live alone for her. She prefers to take things one day at a time instead of looking forward. Her daughter also encouraged her to start planning for the future. Advanced Directives - none on file Code Status - DO NOT RESUSCITATE Thank you for this consultation Dannielle Griffith [facility] Palliative Care Spectralink [id number] Email: [email or web address]
--- NOTE | 2022-12-09 14:37 | P.PN ---
Subjective Progress Note Date: 12/09/22 Hospital course: Patient is a very pleasant 82-year-old female with a past medical history of rheumatic fever and mechanical cardiac valve replacement on anticoagulation with Coumadin, hypertension, hyperlipidemia, CAD with pacemaker placement, and history of invasive ductal carcinoma of the breast, and metastatic adenocarcinoma of the colon. She presented to the emergency department secondary to uncontrolled cancer pain accompanied by nausea and anorexia. Patient underwent full evaluation in the emergency department. CBC showing normocytic anemia with hemoglobin of 9.8. BMP revealing mild hyponatremia with sodium of 134 prerenal azotemia with BUN of 29. Pt admitted under our services with consult to palliative care and oncology. Physical exam: Patient seen and fully evaluated at the bedside. Patient reports lactulose administered yesterday was successful and reports having multiple bowel movements. Patient also reporting slightly improved appetite. INR remains subtherapeutic at 2.4 therefore patient to continue bridge treatment with Lovenox and Coumadin until INR is therapeutic between 2.5 and 3.5. Plan for discharge likely within the next 24-48 hours once we can obtain a therapeutic INR and adequate pain control. Oncology has started patient on fentanyl patch and increased [place] dose. Vital signs reviewed and stable. General: Nontoxic, no distress and appears stated age. Derm: Skin warm and dry, normal coloration for ethnicity. Head: Atraumatic, normocephalic and symmetric. Eyes: EOMs intact, no lid lag, and anicteric sclera Mouth: no lip lesions, mucus membranes moist Cardiovascular: regular rate and rhythm with normal S1S2, mechanical click, positive posterior tibial pulses bilaterally, and cap refill < 2 seconds. Lungs: Respirations even, regular, and unlabored on room air. Lungs CTA bilaterally, no rhonchi, no rales, no wheezing, and no accessory muscle usage. Abdominal: soft, tenderness upon palpation to left upper quadrant no guarding, no appreciable organomegaly Ext: ROM intact. No gross muscle atrophy, no edema, no contractures Neuro: Speech clear, face symmetrical and CN II-XII grossly intact with no noted focal neuro deficits Psych: Alert and oriented to person, place, time, and situation. Appropriate and pleasant affect. Assessment and Plan of Care: Intractable abdominal pain, secondary to uncontrolled cancer pain Abdominal wall mass secondary to metastatic adenocarcinoma Decreased appetite, anorexia -Symptomatic care and pain management -Palliative care consulted, appreciate recommendations -Oncology consulted, appreciate recommendations -IV fluid hydration -Protein supplements 3 times daily between meals -Patient was started on Marinol to assist with increasing appetite. Patient does report slightly increased appetite. Constipation, resolved -Constipation likely related to opioid use. Patient to be given lactulose 10 g by mouth daily. Subtherapeutic INR in pt with mechanical heart valve -Patient to continue Lovenox to bridge until INR is therapeutic between 2.5 and 3.5 Hypertension -Monitor vital signs and continue daily medication regimen with atenolol and hydralazine. CODE STATUS: DO NOT RESUSCITATE/DO NOT INTUBATE DVT prophylaxis: Coumadin/Lovenox being bridged as patient has subtherapeutic INR with mechanical heart valve Discussed with: Patient and RN Anticipated discharge date: 1-2 days pending adequate pain control Anticipated discharge place: Home A total of 35 minutes was spent on the care of this complex patient more than 50% of the time was spent in counseling and care coordination. I reviewed the documentation as provided by the JUDY above, who is the original author of this note. I agree with the documented assessment and plan, with the following changes: none Objective - Vital Signs Vital signs: Vital Signs Temp 97.6 F 12/09/22 07:23 Pulse 54 L 12/09/22 07:23 Resp 16 12/09/22 07:23 BP 145/74 12/09/22 07:23 Pulse Ox 97 12/09/22 07:23 FiO2 Intake & Output 12/08/22 12/09/22 12/09/22 18:59 06:59 18:59 Intake Total 100 340 Balance 100 340 Intake: Oral 100 340 Other: Voiding Method Toilet Toilet # Voids 3 - Labs CBC & Chem 7: 12/08/22 06:14 12/07/22 00:05 Labs: Abnormal Lab Results - Last 24 Hours (Table) 12/08/22 12/08/22 12/09/22 Range/Units 06:14 06:14 05:26 Retic Count 2.50 H (0.10-1.80) % PT 23.3 H (9.0-12.0) sec INR 2.4 H (<1.2) Iron 33 L (50-170) ug/dL % Saturation 10.08 L (12.00-45.00) Ferritin 702.0 H (10.0-291.0) ng/mL
[2022-12-09] MEDS: ACETAMINOPHEN TAB 325 MG TAB PO PRN (16:24)
[2022-12-09] MEDS: HYDROcodone/APAP 10-325MG 1 EACH TAB PO PRN ×2 (17:34→21:42)
[2022-12-09] MEDS: LACTULOSE 20 GM/30 ML CUP PO SCH (17:36)
[2022-12-09] MEDS ORDERED: WARFARIN 2.5 MG TAB PO ONE (18:00)
[2022-12-09] MEDS: ATORVASTATIN 20 MG TAB PO SCH (20:07)
[2022-12-10] MEDS: HYDROcodone/APAP 10-325MG 1 EACH TAB PO PRN ×3 (01:49→12:39)
[2022-12-10 05:19] LABS: INR 1.9 (<1.2)
[2022-12-10] MEDS: ONDANSETRON 4 MG/2 ML VIAL IVP PRN (08:28)
[2022-12-10] MEDS: hydrALAZINE HCL 25 MG TAB PO SCH ×2 (08:31→20:03)
[2022-12-10] MEDS: atenoloL 25 MG TAB PO SCH ×2 (08:31→20:03)
[2022-12-10] MEDS: FERROUS SULFATE 325 MG TAB PO SCH (08:31)
[2022-12-10] MEDS: LIDOCAINE 5% PATCH TOPICAL SCH (08:32)
[2022-12-10] MEDS: ENOXAPARIN 60 MG/0.6 ML SYRINGE SQ SCH ×2 (08:32→20:03)
[2022-12-10] MEDS: polyethylene glycoL 3350 17 GM POWD.PACK PO SCH (10:02)
[2022-12-10] MEDS: LACTULOSE 20 GM/30 ML CUP PO SCH (10:02)
[2022-12-10 12:31] LABS: Methylmalonic Acid 0.49 umol/L (<0.40)
--- NOTE | 2022-12-10 13:35 | P.PN ---
Subjective Progress Note Date: 12/09/22 Principal diagnosis: invasive ductal carcinoma of the breast and metastatic adenocarcinoma of the colon Pt sitting in bedside chair with family at bedside. Cont to report abdominal discomfort, but states pain has improved. Rates pain currently at 7 out of 10. She reports having large BMs yesterday and today which has helped improve symptoms. No other reported complaints at this time Objective - Vital Signs Vital signs: Vital Signs Temp 97.4 F L 12/09/22 12:50 Pulse 63 12/09/22 12:50 Resp 18 12/09/22 12:50 BP 143/85 12/09/22 12:50 Pulse Ox 98 12/09/22 12:50 FiO2 Intake & Output 12/08/22 12/09/22 12/09/22 18:59 06:59 18:59 Intake Total 100 340 Balance 100 340 Intake: Oral 100 340 Other: Voiding Method Toilet Toilet Toilet # Voids 3 - Constitutional General appearance: Present: average body habitus, cooperative, no acute distress - EENT Eyes: Present: anicteric sclerae, EOMI ENT: Present: hearing grossly normal - Respiratory Details: breathing is even and unlabored - Cardiovascular Details: skin warm and dry - Gastrointestinal General gastrointestinal: Present: decreased bowel sounds, distended, soft. Absent: absent bowel sounds, hepatomegaly, hyperactive bowel sounds, normal bowel sounds, organomegaly, rigid, scaphoid, splenomegaly, tenderness, umbilical hernia, ventral hernia Localized gastrointestinal: mass: LLQ - Integumentary Integumentary: Present: normal - Neurologic Neurologic Comment(s): grossly intact Neurologic: Present: CNII-XII intact - Musculoskeletal Musculoskeletal: Present: strength equal bilaterally - Psychiatric Psychiatric: Present: A&O x's 3, appropriate affect, intact judgment & insight - Labs CBC & Chem 7: 12/08/22 06:14 12/07/22 00:05 Labs: Abnormal Lab Results - Last 24 Hours (Table) 12/09/22 Range/Units 05:26 PT 23.3 H (9.0-12.0) sec INR 2.4 H (<1.2) Assessment and Plan (1) Uncontrolled pain Current Visit: Yes Status: Acute Priority: High Code(s): R52 - PAIN, UNSPECIFIED SNOMED Code(s): 97515775446263626 (2) Metastatic adenocarcinoma to colorectal region Current Visit: Yes Status: Chronic Priority: High Code(s): C78.5 - SECONDARY MALIGNANT NEOPLASM OF LARGE INTESTINE AND RECTUM SNOMED Code(s): 858992883 Plan: Intractable pain -Likely 2/2 malignancy -Palliative care consulted for outpatient pain control. Discussed with Palliative care STATISTICS TUTOR. Cont titration of pain meds to comfort, convert to oral regimen. Will start pt on 12mcg fentanyl patch and 10/325 [place] prn for breakthrough pain control, as pain was not being well controlled on [place] 7.5/325. -Discussed regimen for prevention of narcotic induced constipation. Milk of magnesia added to prune juice. Pt was able to have multiple BMs after co nstipation regimen Metastatic colon carcinoma: -Keytruda will be continued in the outpt setting. She was just resumed after unfortunately having recurrent disease -Pt is clear for discharge from Hem/Onc standpoint once on appropriate oral pain medication regimen and passing stool Anemia: -Hemoglobin stable, 10. Previous hgb in office were in the 11 range. Denies any abnormal rectal bleeding, melena, or hematemesis. Please transfuse for hemoglobin less than 7 or if symptomatic -Work up most consistent with inflammation. Hemoglobin stable and continues to improve. No acute intervention at this time
[2022-12-10] MEDS: SENNOSIDES-DOCUSATE SODIUM 1 EACH TAB PO SCH ×2 (14:20→20:02)
--- NOTE | 2022-12-10 15:00 | P.PN ---
Subjective Progress Note Date: 12/10/22 The patient is an 82-year-old woman with a past medical history significant for A. fib, CHF, diabetes mellitus, GERD, hyperlipidemia, hypertension, neuropathy, colon cancer S/P resection, breast cancer, PPM, AVR/MVR, and metastatic adenocarcinoma. The patient presented to the emergency department on 12/06/22 with severe abdominal pain. She states she takes Tylenol 3 at home for pain. However they have not been relieving her pain for some time now. She has not been able to sleep well or eat. She has been having associated nausea. She is a patient of Dr. Barajas, and oncology has been consulted. She denies any fever, chills, sore throat, cough, dyspnea, chest pain, diarrhea, or headaches. 12/07 Met with the patient and her daughter in the emergency department. Information regarding palliative care philosophies and services provided. The patient was lying on her side on the stretcher. She stated they have gotten her pain down to a tolerable level. Discussed pain management strategy with patient and daughter. The patient states that her Tylenol #3 that she normally takes at home does not help anymore. This includes [place] scheduled Q8H, and using Dilaudid for breakthrough pain. If this plan does not control her pain adequately, long-acting opioids will be considered. The patient was encouraged to ask for Zofran when she is feeling nauseated. The patient also states that she has not had a bowel movement in several days. She believes this is adding to her abdominal discomfort and nausea. She normally takes Colace and occasionally drinks prune juice at home. She was agreeable to drink more fluids and try a suppository. CODE STATUS was discussed in detail with the patient and her daughter. The patient is adamant that she would like to be a DO NOT RESUSCITATE. Her daughter is in agreement. At this time the patient's goals are for adequate pain relief and to continue her immunotherapy. 12/08 The patient is resting in bed. She reports that her pain is better, but she is still uncomfortable. She believes this is due to her inability to have a bowel movement in several days. She was given a suppository yesterday and had a tiny hard stool. She agreed to a fleets enema today. She is still nauseated and unable to eat which is likely related to her constipation as well. Reminded her to ask for antiemetic when needed. Will start Miralax daily once her nausea subsides. She was encouraged to drink more fluid. 12/09 the patient is up in a chair today. She appears more comfortable. Her daughter is present at the present. The patient states that her pain is better. However, she currently reports having a 7/10 pain. She was able to have a couple bowel movements yesterday after receiving an enema and lactulose. She reported that her nausea has improved and was able to eat some breakfast today. She was nauseated this morning after taking her pain pill. She was instructed to take her medication with food. The patient lives alone. It was suggested to the patient that she begin to look forward and discuss her wishes with her daughter. She is aware that she will not be able to live alone for her. She prefers to take things one day at a time instead of looking forward. Her daughter also encouraged her to start planning for the future. Objective - Vital Signs Vital signs: Vital Signs Temp 97.8 F 12/10/22 12:15 Pulse 66 12/10/22 12:15 Resp 17 12/10/22 12:15 BP 150/74 12/10/22 12:15 Pulse Ox 96 12/10/22 12:15 FiO2 Intake & Output 12/09/22 12/10/22 12/10/22 18:59 06:59 18:59 Intake Total 360 118 Balance 360 118 Intake: Oral 360 118 Other: Voiding Method Toilet Toilet Toilet # Voids 4 1 - Exam General: Well developed, well nourished. No acute distress. Appears stated age HEENT: Head is atraumatic, normocephalic. CV: Heart irregular in rhythm. Positive S1 and S2. No peripheral edema Lungs: . Respirations even and nonlabored. On RA Abdomen/GI: Soft, + abdominal tenderness. No guarding or rigidity. Musculoskeletal/ Extremities: RIVERA, no joint deformity or swelling. No gross atrophy. + generalized weakness Skin: Warm and dry Neurologic: Awake, alert and oriented times 3. CN II-XII grossly intact. No focal deficits. Psychiatric: Appropriate mood and affect. - Labs CBC & Chem 7: 12/08/22 06:14 12/07/22 00:05 Labs: Abnormal Lab Results - Last 24 Hours (Table) 12/08/22 12/10/22 Range/Units 06:14 04:40 PT 19.0 H (9.0-12.0) sec INR 1.9 H (<1.2) Methylmalonic Acid 0.49 H (<0.40) umol/L Assessment and Plan Assessment: Symptoms * Pain - 4/10 diffuse abdominal pain. Percocet 7.5, 12 mcg fentanyl patch, Tylenol, Motrin, and lidocaine patch * Fatigue - increased energy level * SOB - none * Insomnia - yes, continue Ambien * N/V - + nausea, no vomiting. Continue Zofran as needed * Anxiety - yes, associated with her pain * Depression - occasionally * Confusion - no * Agitation - no * Hallucinations - no * Appetite/weight loss - decreased appetite for several months secondary to pain and nausea. + Recent weight loss. Continue regular diet, frequent light meals suggested. Added Magic cup, continue Marinol * Dysphagia - no * Constipation - yes, chronic constipation. Colace, MOM, MiraLAX, and Dulcolax when necessary * Incontinence - no * Itch - no * Cough - no Plan: Summary/Goals - the patient states that she still having significant abdominal pain. She currently has a fentanyl patch on, and oncology ELEVATOR CONSTRUCTOR has changed her to Percocet 7.5 every 4 hours as needed. It was reiterated to the patient again that she needs to ask for pain medication before her pain gets out of control. The patient reports that she is still occasionally nauseated but it has improved. She feels like she has been able to eat a little bit more today. The patient is anxious to go home. Advanced Directives - none on file Code Status - DO NOT RESUSCITATE Thank you for this consultation Dannielle Griffith [facility] Palliative Care Spectralink [phone] Email: [email or web address]
--- NOTE | 2022-12-10 15:02 | P.PN ---
Subjective Progress Note Date: 12/10/22 Hospital course: Patient is a very pleasant 82-year-old female with a past medical history of rheumatic fever and mechanical cardiac valve replacement on anticoagulation with Coumadin, hypertension, hyperlipidemia, CAD with pacemaker placement, and history of invasive ductal carcinoma of the breast, and metastatic adenocarcinoma of the colon. She presented to the emergency department secondary to uncontrolled cancer pain accompanied by nausea and anorexia. Patient underwent full evaluation in the emergency department. CBC showing normocytic anemia with hemoglobin of 9.8. BMP revealing mild hyponatremia with sodium of 134 prerenal azotemia with BUN of 29. Pt admitted under our services with consult to palliative care and oncology. Physical exam: Patient seen and fully evaluated at the bedside. She continues to report uncontrolled abdominal pain/discomfort and left upper quadrant. Patient does report that her appetite remains improved and denies any episodes of nausea or vomiting. Patient reports continued bowel function without any difficulties since initiation of lactulose. INR remains subtherapeutic at 1.9 at this time and therefore patient to remain on bridge therapy with Lovenox and Coumadin. Oncology managing pain control and making changes to medications at this time in attempts to establish adequate pain control. Vital signs reviewed and stable. General: Nontoxic, no distress and appears stated age. Derm: Skin warm and dry, normal coloration for ethnicity. Head: Atraumatic, normocephalic and symmetric. Eyes: EOMs intact, no lid lag, and anicteric sclera Mouth: no lip lesions, mucus membranes moist Cardiovascular: regular rate and rhythm with normal S1S2, mechanical click, positive posterior tibial pulses bilaterally, and cap refill < 2 seconds. Lungs: Respirations even, regular, and unlabored on room air. Lungs CTA bilaterally, no rhonchi, no rales, no wheezing, and no accessory muscle usage. Abdominal: soft, tenderness upon palpation to left upper quadrant no guarding, no appreciable organomegaly Ext: ROM intact. No gross muscle atrophy, no edema, no contractures Neuro: Speech clear, face symmetrical and CN II-XII grossly intact with no noted focal neuro deficits Psych: Alert and oriented to person, place, time, and situation. Appropriate and pleasant affect. Assessment and Plan of Care: Intractable abdominal pain, secondary to uncontrolled cancer pain Abdominal wall mass secondary to metastatic adenocarcinoma Decreased appetite, anorexia -Symptomatic care and pain management -Palliative care following, appreciate recommendations -Oncology following making changes to her pain medication regimen. -Patient received IV fluid hydration -Protein supplements 3 times daily between meals -Continue with Marinol to assist with increasing appetite. Constipation, resolved -Constipation likely related to opioid use. Patient to be given lactulose 10 g by mouth daily. -If ongoing issue, can consider methylnatrexone Subtherapeutic INR in pt with mechanical heart valve -Patient to continue Lovenox to bridge until INR is therapeutic between 2.5 and 3.5 Hypertension -Monitor vital signs and continue daily medication regimen with atenolol and hydralazine. CODE STATUS: DO NOT RESUSCITATE/DO NOT INTUBATE DVT prophylaxis: Coumadin/Lovenox being bridged as patient has subtherapeutic INR with mechanical heart valve Discussed with: Patient and RN Anticipated discharge date: 1-2 days pending adequate pain control Anticipated discharge place: Home A total of 33 minutes was spent on the care of this complex patient more than 50% of the time was spent in counseling and care coordination. I reviewed the documentation as provided by the JUDY above, who is the original author of this note. I agree with the documented assessment and plan, with the following changes: none Objective - Vital Signs Vital signs: Vital Signs Temp 97.6 F 12/10/22 07:02 Pulse 67 12/10/22 07:02 Resp 16 12/10/22 07:02 BP 130/69 12/10/22 07:02 Pulse Ox 99 12/10/22 07:02 FiO2 Intake & Output 12/09/22 12/10/22 12/10/22 18:59 06:59 18:59 Intake Total 360 118 Balance 360 118 Intake: Oral 360 118 Other: Voiding Method Toilet Toilet # Voids 4 1 - Labs CBC & Chem 7: 12/11/22 06:31 12/11/22 06:31 Labs: Abnormal Lab Results - Last 24 Hours (Table) 12/10/22 Range/Units 04:40 PT 19.0 H (9.0-12.0) sec INR 1.9 H (<1.2)
[2022-12-10] MEDS: oxyCODONE-APAP 7.5-325MG 1 EACH TAB PO PRN ×2 (17:02→21:45)
[2022-12-10] MEDS ORDERED: WARFARIN 3 MG TAB PO ONE (18:00)
--- NOTE | 2022-12-10 19:06 | P.PN ---
Subjective Progress Note Date: 12/10/22 Principal diagnosis: invasive ductal carcinoma of the breast and metastatic adenocarcinoma of the colon Pt in bed today, reporting same abd pain symptoms, no new symptoms. She co nsistently rates pain 7 out of 10. Nothing has changed. She is eating and drinking, she can ambulate. No other c/o. Objective - Vital Signs Vital signs: Vital Signs Temp 97.8 F 12/10/22 12:15 Pulse 66 12/10/22 12:15 Resp 17 12/10/22 12:15 BP 150/74 12/10/22 12:15 Pulse Ox 96 12/10/22 12:15 FiO2 Intake & Output 12/10/22 12/10/22 12/11/22 06:59 18:59 06:59 Intake Total 118 Balance 118 Intake: Oral 118 Other: Voiding Method Toilet Toilet # Voids 1 4 # Bowel Movements 0 - Constitutional General appearance: Present: average body habitus, cooperative, no acute distress - EENT Eyes: Present: anicteric sclerae, EOMI ENT: Present: hearing grossly normal - Respiratory Respiratory: bilateral: CTA - Cardiovascular Rhythm: regular Heart sounds: normal: S1, S2 Abnormal Heart Sounds: Absent: systolic murmur, diastolic murmur, rub, S3 Gallop, S4 Gallop, click, other - Gastrointestinal General gastrointestinal: Present: distended, normal bowel sounds, soft Localized gastrointestinal: mass: LLQ - Integumentary Integumentary: Present: normal - Neurologic Neurologic: Present: CNII-XII intact - Musculoskeletal Musculoskeletal: Present: strength equal bilaterally - Psychiatric Psychiatric: Present: A&O x's 3, appropriate affect, intact judgment & insight - Labs CBC & Chem 7: 12/08/22 06:14 12/07/22 00:05 Labs: Abnormal Lab Results - Last 24 Hours (Table) 12/08/22 12/10/22 Range/Units 06:14 04:40 PT 19.0 H (9.0-12.0) sec INR 1.9 H (<1.2) Methylmalonic Acid 0.49 H (<0.40) umol/L Assessment and Plan (1) Uncontrolled pain Current Visit: Yes Status: Acute Priority: High Code(s): R52 - PAIN, UNSPECIFIED SNOMED Code(s): 54520104511216685 (2) Metastatic adenocarcinoma to colorectal region Current Visit: Yes Status: Chronic Priority: High Code(s): C78.5 - SECONDARY MALIGNANT NEOPLASM OF LARGE INTESTINE AND RECTUM SNOMED Code(s): 882672694 Plan: Intractable pain -Likely 2/2 malignancy -Palliative care consulted for outpatient pain control, -Pt started on 12mcg fentanyl patch and 10/325 [place] prn for breakthrough pain control. Pt does not report any improvement in pain control. Changed to percocet today -Reviewed with pt that she will have pain, unfortunately, until she has had enough treatment to effect the cancer and shrink it down. We are trying for a pain of 3 or less. She verbalized understanding -Cont aggressive regimen for prevention of narcotic induced constipation. Metastatic colon carcinoma: -Keytruda will be continued in the outpt setting. She was just resumed after unfortunately having recurrent disease, she has had 1 cycle -Pt is clear for discharge from Hem/Onc standpoint once on appropriate oral pain medication regimen and passing stool Anemia: -Hemoglobin stable, 10. Previous hgb in office were in the 11 range. Denies any abnormal rectal bleeding, melena, or hematemesis. Please transfuse for hemoglobin less than 7 or if symptomatic -Work up most consistent with inflammation. Hemoglobin stable and continues to improve. No acute intervention at this time
[2022-12-10] MEDS: ATORVASTATIN 20 MG TAB PO SCH (20:03)
[2022-12-11] MEDS: oxyCODONE-APAP 7.5-325MG 1 EACH TAB PO PRN ×3 (01:54→11:40)
[2022-12-11 07:00] LABS: INR 1.8 (<1.2); Prothrombin Time 18.2 sec (9.0-12.0)
[2022-12-11 08:59] LABS: HCT 28.4 % (34.0-46.0); HGB 9.5 gm/dL (11.4-16.0); MCH 31.5 pg (25.0-35.0); MCHC 33.4 g/dL (31.0-37.0); MCV 94.2 fL (80.0-100.0); Mean Platelet Volume 8.2; Platelet Count 205 k/uL (150-450); RBC 3.01 m/uL (3.80-5.40); RDW 14.4 % (11.5-15.5); WBC 6.1 k/uL (3.8-10.6)
[2022-12-11 09:14] LABS: ALT 21 U/L (4-34); AST 24 U/L (14-36); African American GFR (CKD) 71 (>60 ml/min/1.73 sqM); Albumin 3.8 g/dL (3.5-5.0); Albumin/Globulin Ratio 1.8; Alkaline Phosphatase 71 U/L (38-126); Anion Gap 7 mmol/L; Blood Urea Nitrogen 48 mg/dL (7-17); Calcium 8.7 mg/dL (8.4-10.2); Carbon Dioxide 24 mmol/L (22-30); Chloride 100 mmol/L (98-107); Globulin 2.1 g/dL; Glucose 83 mg/dL (74-99); Non-African American GFR(CKD) 62 (>60 ml/min/1.73 sqM); Potassium 4.9 mmol/L (3.5-5.1); Sodium 131 mmol/L (137-145); Total Protein 5.9 g/dL (6.3-8.2)
[2022-12-11] MEDS: ONDANSETRON 4 MG/2 ML VIAL IVP PRN (09:47)
[2022-12-11] MEDS: SENNOSIDES-DOCUSATE SODIUM 1 EACH TAB PO SCH ×2 (09:53→20:37)
[2022-12-11] MEDS: hydrALAZINE HCL 25 MG TAB PO SCH ×2 (09:54→20:37)
[2022-12-11] MEDS: atenoloL 25 MG TAB PO SCH ×2 (09:54→20:37)
[2022-12-11] MEDS: LACTULOSE 20 GM/30 ML CUP PO SCH (09:54)
[2022-12-11] MEDS: LIDOCAINE 5% PATCH TOPICAL SCH (09:55)
[2022-12-11] MEDS: ENOXAPARIN 60 MG/0.6 ML SYRINGE SQ SCH ×2 (09:55→20:37)
[2022-12-11] MEDS: polyethylene glycoL 3350 17 GM POWD.PACK PO SCH (09:55)
--- NOTE | 2022-12-11 16:49 | P.PN ---
Subjective Progress Note Date: 12/11/22 Hospital course: Patient is a very pleasant 82-year-old female with a past medical history of rheumatic fever and mechanical cardiac valve replacement on anticoagulation with Coumadin, hypertension, hyperlipidemia, CAD with pacemaker placement, and history of invasive ductal carcinoma of the breast, and metastatic adenocarcinoma of the colon. She presented to the emergency department secondary to uncontrolled cancer pain accompanied by nausea and anorexia. Patient underwent full evaluation in the emergency department. CBC showing normocytic anemia with hemoglobin of 9.8. BMP revealing mild hyponatremia with sodium of 134 prerenal azotemia with BUN of 29. Pt admitted under our services with consult to palliative care and oncology. Physical exam: Patient seen and fully evaluated at the bedside. She continues to report uncontrolled abdominal pain/discomfort to her left upper quadrant but doesn't appear to be improving and has been tolerating oral intake, having daily bowel movements, and has had no further episodes of nausea or vomiting. Oncology managing and making changes to pain medication regimen. Patient denies any other complaints or concerns at this time. Morning labs reviewed and stable. Hemoglobin 9.5 and sodium 131. INR remains subtherapeutic at 1.8, discussed with pharmacy and additional changes being made to warfarin dosing and patient to remain on bridge therapy with Lovenox pending therapeutic INR between 2.5 and 3.5. Vital signs reviewed and stable. General: Nontoxic, no distress and appears stated age. Derm: Skin warm and dry, normal coloration for ethnicity. Head: Atraumatic, normocephalic and symmetric. Eyes: EOMs intact, no lid lag, and anicteric sclera Mouth: no lip lesions, mucus membranes moist Cardiovascular: regular rate and rhythm with normal S1S2, mechanical click, positive posterior tibial pulses bilaterally, and cap refill < 2 seconds. Lungs: Respirations even, regular, and unlabored on room air. Lungs CTA bilaterally, no rhonchi, no rales, no wheezing, and no accessory muscle usage. Abdominal: soft, tenderness upon palpation to left upper quadrant no guarding, no appreciable organomegaly Ext: ROM intact. No gross muscle atrophy, no edema, no contractures Neuro: Speech clear, face symmetrical and CN II-XII grossly intact with no noted focal neuro deficits Psych: Alert and oriented to person, place, time, and situation. Appropriate and pleasant affect. Assessment and Plan of Care: Intractable abdominal pain, secondary to uncontrolled cancer pain Abdominal wall mass secondary to metastatic adenocarcinoma Decreased appetite, anorexia -Symptomatic care and pain management -Palliative care following, appreciate recommendations -Oncology following making changes to her pain medication regimen. -Patient received IV fluid hydration -Protein supplements 3 times daily between meals -Continue with Marinol to assist with increasing appetite. Constipation, resolved -Constipation likely related to opioid use. Patient to be given lactulose 10 g by mouth daily. -If ongoing issue, can consider methylnatrexone Subtherapeutic INR in pt with mechanical heart valve -Patient to continue Lovenox to bridge until INR is therapeutic between 2.5 and 3.5 Hypertension -Monitor vital signs and continue daily medication regimen with atenolol and hydralazine. CODE STATUS: DO NOT RESUSCITATE/DO NOT INTUBATE DVT prophylaxis: Coumadin/Lovenox being bridged as patient has subtherapeutic INR with mechanical heart valve Discussed with: Patient and RN Anticipated discharge date: Pending adequate pain control and obtaining therapeutic INR. Anticipated discharge place: Home A total of 35 minutes was spent on the care of this complex patient more than 50% of the time was spent in counseling and care coordination. I reviewed the documentation as provided by the JUDY above, who is the original author of this note. I agree with the documented assessment and plan, with the following changes: none Objective - Vital Signs Vital signs: Vital Signs Temp 97.6 F 12/11/22 07:15 Pulse 61 12/11/22 07:15 Resp 16 12/11/22 07:15 BP 145/78 12/11/22 07:15 Pulse Ox 99 12/11/22 07:15 FiO2 Intake & Output 12/10/22 12/11/22 12/11/22 18:59 06:59 18:59 Intake Total 600 Balance 600 Intake: Oral 600 Other: Voiding Method Toilet Toilet # Voids 4 1 # Bowel Movements 0 - Labs CBC & Chem 7: 12/11/22 06:31 12/11/22 06:31 Labs: Abnormal Lab Results - Last 24 Hours (Table) 12/08/22 12/11/22 Range/Units 06:14 06:31 PT 18.2 H (9.0-12.0) sec INR 1.8 H (<1.2) Methylmalonic Acid 0.49 H (<0.40) umol/L
--- NOTE | 2022-12-11 17:24 | P.PN ---
Subjective Progress Note Date: 12/11/22 Principal diagnosis: GI symptoms and pain 2/2 metastatic adenocarcinoma of the colon Pt reporting same abd pain symptoms, nausea, no vomiting. It is documented that she ate 100% of her breakfast, pain scores 3-5/10 documented. This afternoon though, she reports nausea with lunch and increased abd pain. Objective - Vital Signs Vital signs: Vital Signs Temp 97.7 F 12/11/22 12:02 Pulse 74 12/11/22 12:02 Resp 17 12/11/22 12:02 BP 164/69 12/11/22 12:02 Pulse Ox 96 12/11/22 12:02 FiO2 Intake & Output 12/10/22 12/11/22 12/11/22 18:59 06:59 18:59 Intake Total 600 Balance 600 Intake: Oral 600 Other: Voiding Method Toilet Toilet Toilet # Voids 4 1 1 # Bowel Movements 0 - Constitutional General appearance: Present: average body habitus, no acute distress - EENT Eyes: Present: anicteric sclerae, EOMI ENT: Present: hearing grossly normal - Respiratory Details: resp even and unlabored - Gastrointestinal General gastrointestinal: Present: soft, tenderness Localized gastrointestinal: mass: LLQ - Neurologic Neurologic: Present: CNII-XII intact - Musculoskeletal Musculoskeletal: Present: strength equal bilaterally - Psychiatric Psychiatric Comment(s): Alert to self, pt has trouble keeping events straight. - Labs CBC & Chem 7: 12/11/22 06:31 12/11/22 06:31 Labs: Abnormal Lab Results - Last 24 Hours (Table) 12/11/22 12/11/22 12/11/22 Range/Units 06:31 06:31 06:31 RBC 3.01 L (3.80-5.40) m/uL Hgb 9.5 L (11.4-16.0) gm/dL Hct 28.4 L (34.0-46.0) % PT 18.2 H (9.0-12.0) sec INR 1.8 H (<1.2) Sodium 131 L (137-145) mmol/L BUN 48 H (7-17) mg/dL Total Protein 5.9 L (6.3-8.2) g/dL Assessment and Plan (1) Uncontrolled pain Current Visit: Yes Status: Acute Priority: High Code(s): R52 - PAIN, UNSPECIFIED SNOMED Code(s): 53058438524384727 (2) Metastatic adenocarcinoma to colorectal region Current Visit: Yes Status: Chronic Priority: High Code(s): C78.5 - SECONDARY MALIGNANT NEOPLASM OF LARGE INTESTINE AND RECTUM SNOMED Code(s): 133844835 Plan: Intractable pain -2/2 malignancy. Unfortunately, have not been able to get pain control with analgesics. Additional symptoms of nausea. -Pt started on 12mcg fentanyl patch. Stopping all oral analgesics, switching to 4mg morphine IVP q 3 hours. Will see how much she uses and convert to oral morphine. -Cont aggressive regimen for prevention of narcotic induced constipation. Metastatic colon carcinoma: -Keytruda will be continued in the outpt setting. She was just resumed after unfortunately having recurrent disease. SHE HAS HAD 4 CYCLES OF IMMUNOTHERAPY- documented correctly on consult note, did not scribe properly on progress note yesterday. -Tried to manage pt symptoms but unable to get her stable enough to go home and cont treatment or consider other treatment options but, have not been successful. Consult to Radiation Oncology. Will cont to try and see if pt can be stabilized enough to go home and cont treatment outpt or consider a dose for symptoms inpt. *Discussed all of the above with daughter. She agrees with Rad onc consult and will talk to her mother about if she wants to try chemo. Anemia: -Hemoglobin stable, 10. Previous hgb in office were in the 11 range. Denies any abnormal rectal bleeding, melena, or hematemesis. Please transfuse for hemoglobin less than 7 or if symptomatic -Work up most consistent with inflammation. Hemoglobin stable and continues to improve. No acute intervention at this time Time with Patient: Greater than 30
[2022-12-11] MEDS: ONDANSETRON 4 MG/2 ML VIAL IVP SCH ×2 (17:51→23:39)
[2022-12-11] MEDS: MORPHINE SULFATE 4 MG/ML SYRINGE IVP PRN ×2 (17:53→22:00)
[2022-12-11] MEDS ORDERED: WARFARIN 5 MG TAB PO ONE (18:00)
[2022-12-11 20:11] VITALS: RESP 16
[2022-12-11] MEDS: ATORVASTATIN 20 MG TAB PO SCH (20:37)
[2022-12-11] MEDS: OLANZapine 2.5 MG TAB PO SCH (20:37)
[2022-12-12] MEDS: MORPHINE SULFATE 4 MG/ML SYRINGE IVP PRN ×4 (02:03→19:59)
[2022-12-12] MEDS: ONDANSETRON 4 MG/2 ML VIAL IVP SCH ×3 (06:01→18:01)
[2022-12-12 07:01] LABS: Prothrombin Time 19.3 sec (9.0-12.0)
[2022-12-12] MEDS: LIDOCAINE 5% PATCH TOPICAL SCH (10:12)
[2022-12-12] MEDS: polyethylene glycoL 3350 17 GM POWD.PACK PO SCH (10:12)
[2022-12-12] MEDS: LACTULOSE 20 GM/30 ML CUP PO SCH (10:12)
[2022-12-12] MEDS: atenoloL 25 MG TAB PO SCH ×2 (10:13→19:59)
[2022-12-12] MEDS: ENOXAPARIN 60 MG/0.6 ML SYRINGE SQ SCH ×2 (10:13→19:59)
[2022-12-12] MEDS: SENNOSIDES-DOCUSATE SODIUM 1 EACH TAB PO SCH ×2 (10:13→19:54)
[2022-12-12] MEDS: hydrALAZINE HCL 25 MG TAB PO SCH ×2 (10:14→19:59)
--- NOTE | 2022-12-12 15:22 | P.PN ---
Subjective Progress Note Date: 12/12/22 Hospital course: Patient is a very pleasant 82-year-old female with a past medical history of rheumatic fever and mechanical cardiac valve replacement on anticoagulation with Coumadin, hypertension, hyperlipidemia, CAD with pacemaker placement, and history of invasive ductal carcinoma of the breast, and metastatic adenocarcinoma of the colon. She presented to the emergency department secondary to uncontrolled cancer pain accompanied by nausea and anorexia. Patient underwent full evaluation in the emergency department. CBC showing normocytic anemia with hemoglobin of 9.8. BMP revealing mild hyponatremia with sodium of 134 prerenal azotemia with BUN of 29. Pt admitted under our services with consult to palliative care and oncology. Physical exam: Patient seen and fully evaluated at the bedside. Patient denies having any new complaints today. Labs reviewed INR 2.0. Vital signs reviewed and stable. General: Nontoxic, no distress and appears stated age. Derm: Skin warm and dry, normal coloration for ethnicity. Head: Atraumatic, normocephalic and symmetric. Eyes: EOMs intact, no lid lag, and anicteric sclera Mouth: no lip lesions, mucus membranes moist Cardiovascular: regular rate and rhythm with normal S1S2, mechanical click, positive posterior tibial pulses bilaterally, and cap refill < 2 seconds. Lungs: Respirations even, regular, and unlabored on room air. Lungs CTA bilaterally, no rhonchi, no rales, no wheezing, and no accessory muscle usage. Abdominal: soft, tenderness upon palpation to left upper quadrant no guarding, no appreciable organomegaly Ext: ROM intact. No gross muscle atrophy, no edema, no contractures Neuro: Speech clear, face symmetrical and CN II-XII grossly intact with no noted focal neuro deficits Psych: Alert and oriented to person, place, time, and situation. Appropriate and pleasant affect. Assessment and Plan of Care: Intractable abdominal pain, secondary to uncontrolled cancer pain Abdominal wall mass secondary to metastatic adenocarcinoma Decreased appetite, anorexia -Palliative care following, appreciate recommendations -Oncology following making changes to her pain medication regimen. -Continue Protein supplements 3 times daily between meals, patient has been tolerating well -Continue with Marinol to assist with increasing appetite, discussed with nursing staff and the report patient's appetite is improving. Constipation, resolved -Constipation likely related to opioid use. Lactulose 10 g daily the sixth of fall in treating constipation. Patient reports continued bowel movements. -If ongoing issue, can consider methylnatrexone Subtherapeutic INR in pt with mechanical heart valve -Patient to continue Lovenox to bridge until INR is therapeutic between 2.5 and 3.5. Morning labs reviewed INR 2.0 today. Hypertension -Monitor vital signs and continue daily medication regimen with atenolol and hydralazine. Vital signs reviewed and stable on current medication regimen. CODE STATUS: DO NOT RESUSCITATE/DO NOT INTUBATE DVT prophylaxis: Coumadin/Lovenox being bridged as patient has subtherapeutic INR with mechanical heart valve Discussed with: Patient and RN Anticipated discharge date: Pending adequate pain control and obtaining therapeutic INR. Anticipated discharge place: Home A total of 33 minutes was spent on the care of this complex patient more than 50% of the time was spent in counseling and care coordination. I reviewed the documentation as provided by the JUDY above, who is the original author of this note. I agree with the documented assessment and plan, with the following changes: none Objective - Vital Signs Vital signs: Vital Signs Temp 98.2 F 12/12/22 07:16 Pulse 71 12/12/22 07:16 Resp 16 12/12/22 07:16 BP 116/71 12/12/22 07:16 Pulse Ox 90 L 12/12/22 07:16 FiO2 Intake & Output 12/11/22 12/12/22 12/12/22 18:59 06:59 18:59 Intake Total 240 600 Balance 240 600 Intake: Oral 240 600 Other: Voiding Method Toilet Toilet # Voids 1 1 - Labs CBC & Chem 7: 12/11/22 06:31 12/11/22 06:31 Labs: Abnormal Lab Results - Last 24 Hours (Table) 12/12/22 Range/Units 06:09 PT 19.3 H (9.0-12.0) sec INR 2.0 H (<1.2)
[2022-12-12] MEDS ORDERED: WARFARIN 5 MG TAB PO ONE (18:00)
[2022-12-12] MEDS: ATORVASTATIN 20 MG TAB PO SCH (19:59)
[2022-12-12] MEDS: OLANZapine 2.5 MG TAB PO SCH (20:08)
[2022-12-13] MEDS: ONDANSETRON 4 MG/2 ML VIAL IVP SCH ×4 (00:24→19:12)
[2022-12-13] MEDS: MORPHINE SULFATE 4 MG/ML SYRINGE IVP PRN ×3 (00:25→19:59)
[2022-12-13 08:04] LABS: INR 2.4 (<1.2); Prothrombin Time 23.4 sec (9.0-12.0)
[2022-12-13] MEDS: LACTULOSE 20 GM/30 ML CUP PO SCH (08:22)
[2022-12-13] MEDS: SENNOSIDES-DOCUSATE SODIUM 1 EACH TAB PO SCH ×2 (08:23→20:04)
[2022-12-13] MEDS: polyethylene glycoL 3350 17 GM POWD.PACK PO SCH (08:23)
[2022-12-13] MEDS: atenoloL 25 MG TAB PO SCH ×2 (09:11→19:59)
[2022-12-13] MEDS: hydrALAZINE HCL 25 MG TAB PO SCH ×2 (09:11→19:59)
[2022-12-13] MEDS: LIDOCAINE 5% PATCH TOPICAL SCH (09:12)
[2022-12-13] MEDS: ENOXAPARIN 60 MG/0.6 ML SYRINGE SQ SCH ×2 (09:13→19:59)
--- NOTE | 2022-12-13 17:27 | P.PN ---
Subjective Progress Note Date: 12/13/22 Hospital course: Patient is a very pleasant 82-year-old female with a past medical history of rheumatic fever and mechanical cardiac valve replacement on anticoagulation with Coumadin, hypertension, hyperlipidemia, CAD with pacemaker placement, and history of invasive ductal carcinoma of the breast, and metastatic adenocarcinoma of the colon. She presented to the emergency department secondary to uncontrolled cancer pain accompanied by nausea and anorexia. Patient underwent full evaluation in the emergency department. CBC showing normocytic anemia with hemoglobin of 9.8. BMP revealing mild hyponatremia with sodium of 134 prerenal azotemia with BUN of 29. Pt admitted under our services with consult to palliative care and oncology. Physical exam: Patient seen and fully evaluated at the bedside. Patient denies having any new complaints today. Labs reviewed INR improving and is 2.4. Had long discussion with patient and patient's daughter via telephone and plan of care is going to be for discharge home with palliative and home care. Patient continues to use morphine and fentanyl patch for pain management. Oncology managing pain medications and per their documentation plan to monitor need for morphine and convert him to oral dosage for appropriate pain management upon discharge. Plan for likely discharge tomorrow morning. Vital signs reviewed and stable. General: Nontoxic, no distress and appears stated age. Derm: Skin warm and dry, normal coloration for ethnicity. Head: Atraumatic, normocephalic and symmetric. Eyes: EOMs intact, no lid lag, and anicteric sclera Mouth: no lip lesions, mucus membranes moist Cardiovascular: regular rate and rhythm with normal S1S2, mechanical click, positive posterior tibial pulses bilaterally, and cap refill < 2 seconds. Lungs: Respirations even, regular, and unlabored on room air. Lungs CTA bilaterally, no rhonchi, no rales, no wheezing, and no accessory muscle usage. Abdominal: soft, tenderness upon palpation to left upper quadrant no guarding, no appreciable organomegaly Ext: ROM intact. No gross muscle atrophy, no edema, no contractures Neuro: Speech clear, face symmetrical and CN II-XII grossly intact with no noted focal neuro deficits Psych: Alert and oriented to person, place, time, and situation. Appropriate and pleasant affect. Assessment and Plan of Care: Intractable abdominal pain, secondary to uncontrolled cancer pain Abdominal wall mass secondary to metastatic adenocarcinoma Decreased appetite, anorexia -Palliative care following, patient and patient's daughter requesting home with palliative care. -Oncology following, Oncology managing pain medications and per their documentation plan to monitor need for morphine and convert him to oral dosage for appropriate pain management upon discharge. -Continue Protein supplements 3 times daily between meals, Patient has been tolerating well. -Continue with Marinol to assist with increasing appetite, discussed with [facility] staff and patient and it is reported that patient's appetite continues to improve. Constipation, resolved -Constipation likely related to opioid use. Lactulose 10 g daily the sixth of fall in treating constipation. Patient reports continued bowel movements. -If ongoing issue, can consider methylnatrexone Subtherapeutic INR in pt with mechanical heart valve -Patient to continue Lovenox to bridge until INR is therapeutic between 2.5 and 3.5. Morning labs reviewed INR improving to 2.4 today. Hypertension -Monitor vital signs and continue daily medication regimen with atenolol and hydralazine. Vital signs reviewed and stable on current medication regimen. CODE STATUS: DO NOT RESUSCITATE/DO NOT INTUBATE DVT prophylaxis: Coumadin/Lovenox being bridged as patient has subtherapeutic I NR with mechanical heart valve Discussed with: Patient, patient's daughter and RN Anticipated discharge date: Pending adequate pain control and obtaining therapeutic INR, plan for likely discharge tomorrow morning Anticipated discharge place: Home with homecare and palliative care A total of 35 minutes was spent on the care of this complex patient more than 50% of the time was spent in counseling and care coordination. Gildardo Parish NP rendered care for this patient independently, reviewed the findings and plan as documented in the note above. I did not physically speak with or examine the patient on this date. Objective - Vital Signs Vital signs: Vital Signs Temp 97.6 F 12/13/22 07:18 Pulse 72 12/13/22 07:18 Resp 16 12/13/22 07:18 BP 129/74 12/13/22 07:18 Pulse Ox 91 L 12/13/22 07:18 FiO2 Intake & Output 12/12/22 12/13/22 12/13/22 18:59 06:59 18:59 Intake Total 600 Balance 600 Intake: Oral 600 Other: Voiding Method Toilet Toilet # Voids 1 2 # Bowel Movements 1 - Labs CBC & Chem 7: 12/11/22 06:31 12/11/22 06:31 Labs: Abnormal Lab Results - Last 24 Hours (Table) 12/13/22 Range/Units 07:31 PT 23.4 H (9.0-12.0) sec INR 2.4 H (<1.2)
[2022-12-13] MEDS ORDERED: WARFARIN 3 MG TAB PO ONE (18:00)
[2022-12-13] MEDS: ATORVASTATIN 20 MG TAB PO SCH (19:59)
[2022-12-13] MEDS: OLANZapine 2.5 MG TAB PO SCH (19:59)
[2022-12-14] MEDS: ONDANSETRON 4 MG/2 ML VIAL IVP SCH ×4 (00:26→17:48)
[2022-12-14] MEDS: MORPHINE SULFATE 4 MG/ML SYRINGE IVP PRN ×2 (05:59→10:00)
[2022-12-14 06:27] LABS: INR 2.7 (<1.2)
[2022-12-14] MEDS: SENNOSIDES-DOCUSATE SODIUM 1 EACH TAB PO SCH ×2 (09:12→20:37)
[2022-12-14] MEDS: polyethylene glycoL 3350 17 GM POWD.PACK PO SCH (09:13)
[2022-12-14] MEDS: LIDOCAINE 5% PATCH TOPICAL SCH (09:13)
[2022-12-14] MEDS: LACTULOSE 20 GM/30 ML CUP PO SCH (09:13)
[2022-12-14] MEDS: atenoloL 25 MG TAB PO SCH ×2 (09:13→20:38)
[2022-12-14] MEDS: hydrALAZINE HCL 25 MG TAB PO SCH ×2 (09:13→20:38)
[2022-12-14] MEDS: ENOXAPARIN 60 MG/0.6 ML SYRINGE SQ SCH ×3 (09:17→20:39)
--- NOTE | 2022-12-14 15:12 | P.CONS ---
History of Present Illness - Reason for Consult Consult date: 12/14/22 abdominal pain Requesting physician: Ketty Royal - Chief Complaint abdominal pain - History of Present Illness The patient is an 82-year-old female with a history of a stage III MSI-high colon cancer treated with right hemicolectomy in 2017. She unfortunately developed an isolated metastatic deposit in the left abdominal rectus muscle. This was treated with chemoradiation in July 2019. She continued on immunotherapy for several years, having to stop this past year secondary to difficulty with tolerance. She has unfortunately since had progression with inc reasing left rectus and right abdominal rectus lesions resulting in pain. Of note, the patient was also treated for an early stage triple negative left breast cancer in 2018, and has no evidence of recurrence from this malignancy. The patient reports that over the past several months she had developed increasing pain along the bilateral upper abdominal wall. This seemed to be worse with eating. She had undergone treatment with Tylenol 3 for some time, but unfortunately this was recently no longer adequate. She had a CT scan of the abdomen and pelvis on August 16, 2022 showing an enlarging right abdominal wall mass measuring 5.3 x 3.6 cm, as well as a 3.4 x 2.5 cm left abdominal wall mass. She underwent a biopsy of the right abdominal wall mass on September 03 which was consistent with metastatic adenocarcinoma with mucinous features Consistent with her prior colon cancer diagnosis. The patient was subsequently restarted on immunotherapy, and has completed 4 cycles. She had a repeat CT scan on November 24 secondary to her pain. This revealed increasing size of both abdominal wall masses. The patient has since been started on a 12 mcg fentanyl patch with IV morphine as needed. She states that her pain is improved prior to her hospitalization. She reports the pain up to 5 out of 10 this morning, but she is eating and sitting up in bed without difficulty. There is possibility the patient will be discharged home today. Review of Systems Constitutional: Reports anorexia, Denies chills, Denies fever Eyes: denies blurred vision Cardiovascular: Denies chest pain Respiratory: Denies cough, Denies dyspnea Gastrointestinal: Reports as per HPI Musculoskeletal: Denies frequent falls Integumentary: Denies rash Neurological: Denies aphasia, Denies ataxia Psychiatric: Denies confusion, Denies depression Past Medical History Past Medical History: Atrial Fibrillation, Cancer, Heart Failure, Diabetes Mellitus, GERD/Reflux, Hyperlipidemia, Hypertension Additional Past Medical History / Comment(s): Neuropathy feet., hx Rheumatic fever., gout , hx colon CA with resection., hx breast cancer., hx of diabetic toe ulcers., states received covid vaccine x2 doses and had a problem with her heart and not able to take anymore covid vaccines., Pacemaker., states diarrhea & constipation, states having right abdominal pain, no longer on any medications for diabetes History of Any Multi-Drug Resistant Organisms: None Reported Past Surgical History: Appendectomy, Bowel Resection, Cardiac Valve Replacement, Cholecystectomy, Hysterectomy, Pacemaker Additional Past Surgical History / Comment(s): 1994 mitral and aortic mechanical valves placed. Pacemakers-generator change 11/28/21., Colonoscopy. Debridements bilateral great toe diabetic ulcers. , cataracts with lens implants Past Anesthesia/Blood Transfusion Reactions: No Reported Reaction Additional Past Anesthesia/Blood Transfusion Reaction / Comm: blood transfusions no issues. Type of Cardiac Device: Permanent Pacemaker Device Placement Date:: Pt cannot recall date of last pacer insertion but generator changed 2021 Past Psychological History: Anxiety Smoking Status: Never smoker - Past Family History Brother(s) Additional Family Medical History / Comment(s): brothers had " heart problems" Father History Unknown: Yes Family Medical History: No Reported History Additional Family Medical History / Comment(s): Father committed suicide in his 50s.drinker Mother History Unknown: Yes Family Medical History: No Reported History Additional Family Medical History / Comment(s): Mother was healthy and lived to be 92 yrs old. Daughter(s) Family Medical History: Cancer Additional Family Medical History / Comment(s): breast cancer Medications and Allergies Home Medications Medication Instructions Recorded Confirmed Type Simvastatin [Zocor] 40 mg PO HS 03/18/17 12/07/22 History hydrALAZINE HCL [Apresoline] 25 mg PO BID #60 tab 06/16/18 12/07/22 Rx allopurinoL [Zyloprim] 100 mg PO DAILY 01/14/19 12/07/22 History calcitrioL [Rocaltrol] 0.25 mcg PO FR 01/14/19 12/07/22 History Spironolactone [Aldactone] 50 mg PO DAILY 01/24/19 12/07/22 History atenoloL [Tenormin] 25 mg PO BID 02/12/22 12/07/22 History Cholecalciferol [Vitamin D3 (25 25 mcg PO DAILY 03/27/22 12/07/22 History Mcg = 1000 Iu)] Lactulose [Cephulac] 10 gm PO DAILY 30 Days #450 ml 12/14/22 Rx Warfarin [Coumadin] 2.5 mg PO DAILY #0 12/14/22 12/07/22 Rx Allergies Allergy/AdvReac Type Severity Reaction Status Date / Time Iodinated Contrast Media Allergy Anaphylaxis Verified 12/07/22 07:34 [Iodinated Contrast Media - IV Dye] Physical Exam Vitals: Vital Signs Temp Pulse Resp BP Pulse Ox 12/14/22 07:17 97.6 F 59 L 16 157/76 98 12/14/22 02:00 97.6 F 63 16 112/65 91 L 12/13/22 20:15 16 12/13/22 20:00 97.7 F 64 16 118/52 96 12/13/22 12:13 98.0 F 60 16 128/68 97 Intake and Output 12/13/22 12/14/22 12/14/22 22:59 06:59 14:59 Intake Total 590 Balance 590 Intake: Oral 590 Other: Voiding Method Toilet # Voids 3 3 - Constitutional General appearance: no acute distress - EENT Eyes: EOMI, PERRLA - Neck Neck: no lymphadenopathy - Respiratory Respiratory: bilateral: CTA - Cardiovascular Rhythm: regular - Gastrointestinal General gastrointestinal: no distended, no tenderness - Integumentary Integumentary: no calor - Neurologic Neurologic: CNII-XII intact - Psychiatric Psychiatric: A&O x's 3, appropriate affect, intact judgment & insight Results CBC & Chem 7: 12/11/22 06:31 12/11/22 06:31 Labs: Abnormal Lab Results - Last 24 Hours (Table) 12/14/22 Range/Units 06:04 PT 26.0 H (9.0-12.0) sec INR 2.7 H (<1.2) CT scan - abdomen: report reviewed, image reviewed CT scan - pelvis: report reviewed, image reviewed Assessment and Plan Assessment: The patient is an 82-year-old female with a history of a stage III MSI-high colon cancer treated with right hemicolectomy in 2017. She unfortunately developed an isolated metastatic deposit in the left abdominal rectus muscle. This was treated with chemoradiation in July 2019. She continued on immunotherapy for several years, having to stop this past year secondary to difficulty with tolerance. She has unfortunately since had progression with increasing left rectus and right abdominal rectus lesions resulting in pain. Of note, the patient was also treated for an early stage triple negative left breast cancer in 2019, and has no evidence of recurrence from this malignancy. Plan: 1. Abdominal pain: The most likely reason for the patient's increasing abdominal pain is the bilateral rectus muscle lesions which have been increasing in size over the past few months. This does not appear to be responding to the patient's ongoing immunotherapy. The left flank lesion was previously radiated in 2019. The patient did have good pain relief associated with this treatment at that time. I discussed with the patient that considering she now has multiple lesions, it would be reasonable to consider a short course of palliative radiation. I discussed with the patient that this may help improve her pain, but that he can take 1-2 weeks for any effect to take place. I explained the importance of the patient being discharged on adequate pain medications. I discussed this course of palliative radiotherapy with the patient's daughter, and she is supportive of this. I explained to the patient that she would first undergo CT simulation for treatment planning. I discussed that radiotherapy would be delivered over approximately 1 week. I discussed potential side effects of this treatment which includes, but is not limited to; fatigue, skin erythema, edema, desquamation, and low risk of long-term toxicity considering palliative dosing. Of note, the area of the left rib will constitute reirradiation and we will review prior planning. The patient will undergo CT simulation today, and we will look to initiate her treatment as early as tomorrow. Time with Patient: Greater than 30
--- NOTE | 2022-12-14 17:44 | P.PN ---
Subjective Progress Note Date: 12/14/22 Hospital course: Patient is a very pleasant 82-year-old female with a past medical history of rheumatic fever and mechanical cardiac valve replacement on anticoagulation with Coumadin, hypertension, hyperlipidemia, CAD with pacemaker placement, and history of invasive ductal carcinoma of the breast, and metastatic adenocarcinoma of the colon. She presented to the emergency department secondary to uncontrolled cancer pain accompanied by nausea and anorexia. Patient underwent full evaluation in the emergency department. CBC showing normocytic anemia with hemoglobin of 9.8. BMP revealing mild hyponatremia with sodium of 134 prerenal azotemia with BUN of 29. Pt admitted under our services with consult to palliative care and oncology. Physical exam: Patient seen and fully evaluated at the bedside. Patient denies having any new complaints today. Labs reviewed INR is therapeutic at 2.7. Patient to remain o n bridging treatment with Lovenox 24 hours and may then continue only Coumadin with repeat INRs managed per outpatient team. Initial plan was for discharge today. After discussion with oncology team they are recommending patient remain hospitalized overnight one additional night to begin radiation therapy tomorrow morning followed by discharge home. Home care and palliative care services have been set up for discharge. Patient is medically stable for discharge at this time with continued outpatient follow-up with oncology and her PCP. Vital signs reviewed and stable. General: Nontoxic, no distress and appears stated age. Derm: Skin warm and dry, normal coloration for ethnicity. Head: Atraumatic, normocephalic and symmetric. Eyes: EOMs intact, no lid lag, and anicteric sclera Mouth: no lip lesions, mucus membranes moist Cardiovascular: regular rate and rhythm with normal S1S2, mechanical click, positive posterior tibial pulses bilaterally, and cap refill < 2 seconds. Lungs: Respirations even, regular, and unlabored on room air. Lungs CTA bilaterally, no rhonchi, no rales, no wheezing, and no accessory muscle usage. Abdominal: soft, tenderness upon palpation to left upper quadrant no guarding, no appreciable organomegaly Ext: ROM intact. No gross muscle atrophy, no edema, no contractures Neuro: Speech clear, face symmetrical and CN II-XII grossly intact with no noted focal neuro deficits Psych: Alert and oriented to person, place, time, and situation. Appropriate and pleasant affect. Assessment and Plan of Care: Intractable abdominal pain, secondary to uncontrolled cancer pain Abdominal wall mass secondary to metastatic adenocarcinoma Decreased appetite, anorexia -Palliative care following, patient and patient's daughter requesting home with palliative care. -Oncology following, Oncology managing pain medications and per their documentation plan to monitor need for morphine and convert him to oral dosage for appropriate pain management upon discharge. -Continue Protein supplements 3 times daily between meals, Patient has been tolerating well. -Continue with Marinol to assist with increasing appetite, discussed with nursing staff and patient and it is reported that patient's appetite continues to improve. Constipation, resolved -Constipation likely related to opioid use. Lactulose 10 g daily was successful in treating constipation. Patient reports continued bowel movements and states last bowel movement was yesterday 12/13/22. -If ongoing issue, can consider methylnatrexone Subtherapeutic INR in pt with mechanical heart valve, resolved INR therapeutic at 2.7 -Morning labs reviewed. INR therapeutic at 2.7. -Patient to continue bridging with Lovenox 24 hours with last dose of Lovenox to be given this evening, as INR is therapeutic at 2.7. Patient may then resume warfarin daily with continued INRs managed by outpatient provider. Hypertension -Monitor vital signs and continue daily medication regimen with atenolol and hydralazine. Vital signs reviewed and stable on current medication regimen. CODE STATUS: DO NOT RESUSCITATE/DO NOT INTUBATE DVT prophylaxis: Coumadin/Lovenox being bridged as patient has subtherapeutic INR with mechanical heart valve Discussed with: Patient, oncology AUTOM[employer]IVE [employer] TECHNICIAN and RN Anticipated discharge date: Tomorrow morning Anticipated discharge place: Home with homecare and palliative care A total of 33 minutes was spent on the care of this complex patient more than 50% of the time was spent in counseling and care coordination. Objective - Vital Signs Vital signs: Vital Signs Temp 97.6 F 12/14/22 07:17 Pulse 59 L 12/14/22 07:17 Resp 16 12/14/22 07:17 BP 157/76 12/14/22 07:17 Pulse Ox 98 12/14/22 07:17 FiO2 Intake & Output 12/13/22 12/14/22 12/14/22 18:59 06:59 18:59 Intake Total 590 Balance 590 Intake: Oral 590 Other: Voiding Method Toilet Toilet # Voids 3 3 - Labs CBC & Chem 7: 12/11/22 06:31 12/11/22 06:31 Labs: Abnormal Lab Results - Last 24 Hours (Table) 12/14/22 Range/Units 06:04 PT 26.0 H (9.0-12.0) sec INR 2.7 H (<1.2)
[2022-12-14] MEDS: MORPHINE SULFATE IR 15 MG TABLET PO PRN (17:47)
[2022-12-14] MEDS ORDERED: WARFARIN 2.5 MG TAB PO ONE (18:00)
--- NOTE | 2022-12-14 19:04 | P.PN ---
Subjective Progress Note Date: 12/14/22 Principal diagnosis: GI symptoms and pain 2/2 metastatic adenocarcinoma of the colon Pt reporting improvement in her abd pain with IV morphine. She is tolerating oral intake as documented in chart, pain scores are lower then previously. Objective - Vital Signs Vital signs: Vital Signs Temp 97.5 F L 12/14/22 12:38 Pulse 60 12/14/22 12:38 Resp 16 12/14/22 12:38 BP 157/66 12/14/22 12:38 Pulse Ox 96 12/14/22 12:38 FiO2 Intake & Output 12/13/22 12/14/22 12/14/22 18:59 06:59 18:59 Intake Total 590 Balance 590 Intake: Oral 590 Other: Voiding Method Toilet Toilet Toilet # Voids 3 3 - Constitutional General appearance: Present: average body habitus, cooperative, no acute distress - EENT Eyes: Present: anicteric sclerae, EOMI ENT: Present: hearing grossly normal - Respiratory Details: resp even and unlabored - Gastrointestinal General gastrointestinal: Present: soft Localized gastrointestinal: mass: LLQ - Integumentary Integumentary: Present: normal - Neurologic Neurologic: Present: CNII-XII intact - Musculoskeletal Musculoskeletal: Present: generalized weakness, strength equal bilaterally - Psychiatric Psychiatric: Present: A&O x's 3, appropriate affect, intact judgment & insight - Labs CBC & Chem 7: 12/11/22 06:31 12/11/22 06:31 Labs: Abnormal Lab Results - Last 24 Hours (Table) 12/14/22 Range/Units 06:04 PT 26.0 H (9.0-12.0) sec INR 2.7 H (<1.2) Assessment and Plan (1) Uncontrolled pain Current Visit: Yes Status: Acute Priority: High Code(s): R52 - PAIN, UNSPECIFIED SNOMED Code(s): 70003680913798762 (2) Metastatic adenocarcinoma to colorectal region Current Visit: Yes Status: Chronic Priority: High Code(s): C78.5 - SECONDARY MALIGNANT NEOPLASM OF LARGE INTESTINE AND RECTUM SNOMED Code(s): 290450323 Plan: Intractable pain -2/2 malignancy. -Pt started on 12mcg fentanyl patch. Gave pt 4mg morphine IVP q 3 hours over the weekend with improved pain control. Converted to oral IR morphine today with PharmD. DC IV pain meds, oral meds ordered. See how pt is in AM. -Cont aggressive regimen for prevention of narcotic induced constipation. Pt refused senna. Metastatic colon carcinoma -Consult to Radiation Oncology. Discussed with Rad Onc. Palliative Radiation offered to pt for pain control. Simulation today -Will wait until after radiation to discuss systemic treatment-change to chemo for a bit? Cont with IO? Pt and daughter will meet with Dr. Barajas to discuss Anemia -Work up most consistent with inflammation. Hemoglobin stable and continues to improve. No acute intervention at this time
[2022-12-14] MEDS: ACETAMINOPHEN TAB 325 MG TAB PO PRN (20:38)
[2022-12-14] MEDS: OLANZapine 2.5 MG TAB PO SCH (20:38)
[2022-12-14] MEDS: ATORVASTATIN 20 MG TAB PO SCH (20:38)
[2022-12-15] MEDS: ONDANSETRON 4 MG/2 ML VIAL IVP SCH ×3 (01:33→11:34)
[2022-12-15] MEDS: atenoloL 25 MG TAB PO SCH (08:42)
[2022-12-15] MEDS: hydrALAZINE HCL 25 MG TAB PO SCH (08:42)
[2022-12-15] MEDS: LIDOCAINE 5% PATCH TOPICAL SCH (08:42)
[2022-12-15] MEDS: SENNOSIDES-DOCUSATE SODIUM 1 EACH TAB PO SCH (08:42)
[2022-12-15] MEDS: polyethylene glycoL 3350 17 GM POWD.PACK PO SCH (08:43)
[2022-12-15] MEDS: LACTULOSE 20 GM/30 ML CUP PO SCH (08:44)
[2022-12-15 10:07] LABS: INR 2.58 (0.90-1.11); Prothrombin Time 28.1 sec (9.9-11.9)
[2022-12-15] MEDS: MORPHINE SULFATE IR 15 MG TABLET PO PRN (10:15)
[2022-12-15 12:20] VITALS: BMI 25.6
[2022-12-15 12:35] VITALS: BP 148/65; PULSE 60; TEMP 97.8
--- NOTE | 2022-12-15 14:39 | P.DS ---
Providers Date of admission: 12/08/22 11:12 Expected date of discharge: 12/15/22 Attending physician: Benny Best MD Consults: 12/07/22 01:21 Consult Physician Urgent Consulting Provider: Thien Liz Consult Reason/Comments: uncontrolled pain with metastatic adenocarcinoma Do you want consulting provider notified?: Yes 12/07/22 03:09 Consult to Palliative Care Routine Consulting Provider: Dannielle Griffith Consult Reason/Comments: intractable pain Do you want consulting provider notified?: Yes 12/11/22 16:41 Consult Physician Routine Consulting Provider: Dharmesh Muro Consult Reason/Comments: possible palliative radiation Do you want consulting provider notified?: Yes, Notify in am Primary care physician: Home [facility] Hospital Course: Discharge Diagnosis: Intractable abdominal pain due to metastatic cancer Metastatic adenocarcinoma of the colon Constipation Subtherapeutic INR in pt with mechanical heart valve, resolved INR therapeutic at 2.7 Hypertension Anorexia Hospital Course: Patient is an 82-year-old female with metastatic adenocarcinoma of the colon, prior invasive ductal carcinoma of the breast, rheumatic fever and mechanical cardiac valve replacement on anticoagulation with Coumadin, hypertension, hyperlipidemia, and CAD who presented to the ED due to uncontrolled pain due to malignancy. Patient underwent full evaluation in the emergency department. Laboratory analysis was significant for hemoglobin of 9.8, sodium of 134, and BUN of 29. Patient was admitted with consult to palliative care and oncology. She had continued significant pain and was requiring IV pain medications. Her pain medications were optimized. Rad onc was consulted and arrangements were made for palliative radiation. She had her first radiation treatment on 12/15/22. She was on oral pain medications and was determined stable for discharge. Patient seen and examined at bedside. Oral morphine was working well, has not taken a dose yet this morning and is having some arm pain. We discussed that will be discharged today and needs to stay up on bowel regiment. Vital signs reviewed and stable. General: nontoxic, no distress, appears at stated age Derm: warm, dry Head: atraumatic, normocephalic, symmetric Eyes: EOMI, no lid lag, anicteric sclera Mouth: no lip lesion, mucus membranes moist Cardiovascular: S1S2 reg, no murmur, positive posterior tibial pulse bilateral, Kyphosis Lungs: CTA bilateral, no rhonchi, no rales , no accessory muscle use Abdominal: soft, nontender to palpation, no guarding, no appreciable organomegaly Ext: no gross muscle atrophy, no edema, no contractures Neuro: CN II-XI grossly intact, no focal neuro deficits Psych: Alert, oriented, appropriate affect A total of 35 minutes of time were spent preparing this complex discharge summary. Patient was discharged on 12/15/22. Patient Condition at Discharge: Fair Plan - Discharge Summary New Discharge Prescriptions: New Lidocaine 5% Patch [Lidoderm 5% Patch] 1 patch TOPICAL DAILY #30 patch dronabinoL [Marinol] 2.5 mg PO AC-BID #60 cap Morphine Sulfate Ir [MSIR] 15 mg PO Q4HR PRN tab PRN Reason: Pain OLANZapine [ZyPREXA] 2.5 mg PO HS tab Lactulose [Cephulac] 10 gm PO DAILY 30 Days #450 ml Sennosides-Docusate Sodium [Senokot-S] 2 each PO BID #60 tab Continue Simvastatin [Zocor] 40 mg PO HS hydrALAZINE HCL [Apresoline] 25 mg PO BID #60 tab allopurinoL [Zyloprim] 100 mg PO DAILY calcitrioL [Rocaltrol] 0.25 mcg PO FR atenoloL [Tenormin] 25 mg PO BID Cholecalciferol [Vitamin D3 (25 Mcg = 1000 Iu)] 25 mcg PO DAILY Changed Warfarin [Coumadin] 2.5 mg PO DAILY #0 Discontinued Furosemide [Lasix] 40 mg PO BID-W/MEALS Spironolactone [Aldactone] 50 mg PO DAILY Acetaminophen Tab [Tylenol Tab] 1,000 mg PO TID PRN #60 tablet PRN Reason: Pain Scale 6 To 10 Warfarin [Coumadin] 1.25 mg PO MOWEFR Ferrous Sulfate [Iron (65 MG Elemental)] 325 mg PO BID Ibuprofen [Motrin] 600 mg PO Q6HR PRN #40 tab PRN Reason: Pain Discharge Medication List Simvastatin [Zocor] 40 mg PO HS 03/18/17 [History] hydrALAZINE HCL [Apresoline] 25 mg PO BID #60 tab 06/16/18 [Rx] allopurinoL [Zyloprim] 100 mg PO DAILY 01/14/19 [History] calcitrioL [Rocaltrol] 0.25 mcg PO FR 01/14/19 [History] atenoloL [Tenormin] 25 mg PO BID 02/12/22 [History] Cholecalciferol [Vitamin D3 (25 Mcg = 1000 Iu)] 25 mcg PO DAILY 03/27/22 [History] Lactulose [Cephulac] 10 gm PO DAILY 30 Days #450 ml 12/14/22 [Rx] Warfarin [Coumadin] 2.5 mg PO DAILY #0 12/14/22 [Rx] Lidocaine 5% Patch [Lidoderm 5% Patch] 1 patch TOPICAL DAILY #30 patch 12/15/22 [Rx] Morphine Sulfate Ir [MSIR] 15 mg PO Q4HR PRN tab 12/15/22 [Rx] OLANZapine [ZyPREXA] 2.5 mg PO HS tab 12/15/22 [Rx] Sennosides-Docusate Sodium [Senokot-S] 2 each PO BID #60 tab 12/15/22 [Rx] dronabinoL [Marinol] 2.5 mg PO AC-BID #60 cap 12/15/22 [Rx] Follow up Appointment(s)/Referral(s): Home Garza MD [Primary Care Provider] - 1-2 days [facility], [NON-STAFF] - 1 Week Ronn Barajas MD [STAFF PHYSICIAN] - 12/25/22 2:00 pm ([place] appt) Dharmesh Muro MD [STAFF PHYSICIAN] - As Needed (will need to obtain when to follow-up from Rad/Onc) Patient Instructions/Handouts: Colorectal Cancer (DC), Acute Nausea and Vomiting (DC) Activity/Diet/Wound Care/Special Instructions: Activity: as tolerated Diet: Regular Special Instructions: Use Senokot daily, then if no bowel movement in 2 days take a dose of lactulose Discharge Disposition: HOME WITH HOME HEALTH SERVICES
--- NOTE | 2022-12-15 17:47 | P.PN ---
Subjective Progress Note Date: 12/15/22 Principal diagnosis: GI symptoms and pain 2/2 metastatic adenocarcinoma of the colon Pt reporting waxing and waning of abdominal pain but, improved with pain med adjustments. 3/10 with medications, which is improvement to previous pain level of 7/10. Pt denies n/v, and last BM was yesterday. She is tolerating fluids and ate about 50% of breakfast this morning. Objective - Vital Signs Vital signs: Vital Signs Temp 97.8 F 12/15/22 12:20 Pulse 60 12/15/22 12:20 Resp 16 12/15/22 12:20 BP 148/65 12/15/22 12:20 Pulse Ox 95 12/15/22 12:20 FiO2 Intake & Output 12/14/22 12/15/22 12/15/22 18:59 06:59 18:59 Intake Total 590 Balance 590 Weight 63.503 kg Intake: Oral 590 Other: Voiding Method Toilet Toilet Toilet # Voids 1 1 - Constitutional General appearance: Present: average body habitus, no acute distress - EENT Eyes: Present: anicteric sclerae, EOMI ENT: Present: hearing grossly normal - Respiratory Respiratory: bilateral: CTA - Cardiovascular Rhythm: regular Heart sounds: normal: S1, S2 Abnormal Heart Sounds: Absent: systolic murmur, diastolic murmur, rub, S3 Gallop, S4 Gallop, click, other - Gastrointestinal General gastrointestinal: Present: normal bowel sounds, soft. Absent: tenderness - Integumentary Integumentary: Present: normal - Neurologic Neurologic: Present: CNII-XII intact - Musculoskeletal Musculoskeletal: Present: strength equal bilaterally - Psychiatric Psychiatric: Present: A&O x's 3, appropriate affect, intact judgment & insight - Labs CBC & Chem 7: 12/11/22 06:31 12/11/22 06:31 Labs: Abnormal Lab Results - Last 24 Hours (Table) 12/15/22 Range/Units 05:54 PT 28.1 H (9.9-11.9) sec INR 2.58 H (0.90-1.11) Assessment and Plan (1) Uncontrolled pain Status: Acute Priority: High Code(s): R52 - PAIN, UNSPECIFIED SNOMED Code(s): 22863783511241602 (2) Metastatic adenocarcinoma to colorectal region Status: Chronic Priority: High Code(s): C78.5 - SECONDARY MALIGNANT NEOPLASM OF LARGE INTESTINE AND RECTUM SNOMED Code(s): 765173099 Plan: Intractable pain -2/2 malignancy. -Pt started on 12mcg fentanyl patch. Started oral breakthrough pain meds yesterday and pt did well. -Pt today reports waxing and waning of LUQ pain, but reports improvement in pain, and rates pain 3/10 with oral regimen. Denies n/v and is tolerating oral intake -Cont aggressive regimen for prevention of narcotic induced constipation. Pt refused senna. - Pt will be discharged on IR morphine and fentanyl patch for pain control Metastatic colon carcinoma -Consult to Radiation Oncology. Discussed with Rad Onc. Palliative Radiation offered to pt for pain control. Simulation yesterday, plan for continue f/u with Dr. Muro for outpatient palliative XRT -Will wait until after radiation to discuss systemic treatment-change to chemo for a bit? Cont with IO? Pt and daughter will meet with Dr. Barajas to discuss -Clinic f/u in discharge Anemia -Work up most consistent with inflammation. Hemoglobin stable and continued to improve. No acute intervention at this time Attests: I have seen and examined pt, performed H&P, developed impression and plan of care. Discussed with dictator. Agree with dictation, documented as a scribe
[2022-12-15] MEDS ORDERED: WARFARIN 2.5 MG TAB PO ONE (18:00)
== END 2022-12-15 16:24 | disposition home health service (06) | DRG 948 ==
LOC: EC 21:38 → 5NMEDONC 12-07 01:22 → OBSVTOIN 12-08 11:12
PROVIDERS: ADMIT Internal Medicine; ATTEND Internal Medicine
PROC: DW031ZZ Beam Radiation of Abdomen using Photons 1 - 10 MeV (ICD-10-PCS; principal; 2022-12-15)
DX: G89.3 Neoplasm related pain (acute) (chronic) (principal); C79.89 Secondary malignant neoplasm of other specified sites; C18.9 Malignant neoplasm of colon, unspecified; E87.1 Hypo-osmolality and hyponatremia; Z85.3 Personal history of malignant neoplasm of breast; D64.9 Anemia, unspecified; E11.40 Type 2 diabetes mellitus with diabetic neuropathy, unspecified; E78.5 Hyperlipidemia, unspecified; F32.A Depression, unspecified; F41.9 Anxiety disorder, unspecified; G47.00 Insomnia, unspecified; R11.0 Nausea; I11.0 Hypertensive heart disease with heart failure; I25.10 Atherosclerotic heart disease of native coronary artery without angina pectoris; I48.91 Unspecified atrial fibrillation; I50.9 Heart failure, unspecified; K59.09 Other constipation; R79.1 Abnormal coagulation profile; Z51.5 Encounter for palliative care; Z66 Do not resuscitate; Z95.2 Presence of prosthetic heart valve; K21.9 Gastro-esophageal reflux disease without esophagitis; M10.9 Gout, unspecified; R63.0 Anorexia; Z88.7 Allergy status to serum and vaccine; Z79.01 Long term (current) use of anticoagulants; Z79.899 Other long term (current) drug therapy; Z80.3 Family history of malignant neoplasm of breast; Z90.49 Acquired absence of other specified parts of digestive tract; Z92.3 Personal history of irradiation; Z95.0 Presence of cardiac pacemaker; Z68.25 Body mass index [BMI] 25.0-25.9, adult; Z71.3 Dietary counseling and surveillance; Z91.041 Radiographic dye allergy status
CPT/HCPCS: 36415; 77280; 77290; 77295; 77300; 77332; 77334; 77412; 80053; 82525; 82607; 82728; 82746; 83540; 83550; 83921; 85025; 85027; 85045; 85610; 96374; 96375; 99285